=== PATIENT | male | born 1945 | race Caucasian/White ===

== ENCOUNTER 2020-04-22 12:13 | Inpatient (IN) | payer MEDICARE, SELFPAY ==
[2020-04-22 12:33] VITALS: BP 163/56; PULSE 68; RESP 20; TEMP 36.6; O2SAT 99; BMI 32.3
--- NOTE | 2020-04-22 12:44 | ED_ITS ---
HPI - General Adult General Chief complaint: General Medical Stated complaint: abnormal labs Time Seen by Provider: 04/22/20 12:34 Source: patient Mode of arrival: ambulatory Limitations: no limitations History of Present Illness HPI narrative: This is a pleasant 75-year-old male with past medical history as noted below: Type 2 diabetes Peripheral vascular disease Chronic kidney disease stage 3 Atrial fibrillation, chronically anticoagulated Plavix Status post CABG 2006 Amputation left great toe CVA, post CABG 2006 Hyperlipidemia Hepatitis-C Hypertension History mostly gathered from on-call -___ at [facility] He is sent in as an expected with a complaint of worsening H&H and worsening renal function. Apparently patient reports that he was evaluated at the office yesterday for 1 week of generalized weakness, upper respiratory symptoms, chills and some nausea with diarrhea. He was subsequently called today and was told that his renal function was worsening and his H&H was low to go to emergency room. Patient again reports that he has had these symptoms ongoing for the past 1 week he is s tarting to feel somewhat better still has some URI symptoms with slight dry cough. He denies any fever or chills. He was tested for COVID-19 at the facility however no results on that yet. Apparently his PCP office called in and history will be faxed to us. Onset (ago): day(s) Radiation: non-radiation Relieving factors: none Associated symptoms: denies other symptoms Treatments prior to arrival: none Related Data Home Medications Medication Instructions Recorded Confirmed amlodipine 1 tab PO DAILY 04/22/20 04/22/20 atorvastatin 1 tab PO DAILY 04/22/20 04/22/20 clopidogrel 1 tab PO DAILY 04/22/20 04/22/20 gemfibrozil 1 tab PO BID 04/22/20 04/22/20 hydralazine 100 tab PO BID 04/22/20 04/22/20 insulin glargine [Lantus U-100 80 unit SUBCUT BID 04/22/20 04/22/20 Insulin] insulin lispro 30 unit SUBCUT TIDWM 04/22/20 04/22/20 metoprolol succinate 100 tab PO DAILY 04/22/20 04/22/20 olmesartan 1 tab PO DAILY 04/22/20 04/22/20 spironolacton-hydrochlorothiaz 1 tab PO DAILY 04/22/20 04/22/20 Allergies Allergy/AdvReac Type Severity Reaction Status Date / Time No Known Allergies Allergy Verified 04/22/20 12:37 [No Known Allergies*] Review of Systems Review of Systems: Constitutional: No Weight loss, No Fever, + Chills, + Night Sweats, No Fatigue, No Malaise ENT/Mouth: No Hearing loss, No Ear Pain, No Nasal Congestion, No Sinus Pain, No Hoarseness, No sore throat, No Rhinorrhea, No Swallowing Difficulty Eyes: No Eye Pain, No Swelling, No Redness, No Foreign Body, No Discharge, No Vision Changes Cardiovascular: No Chest Pain, No SOB, No Dyspnea on Exertion, No Orthopnea, No Edema, No Palpitations Respiratory: No Cough, No Sputum, No Wheezing, No Smoke Exposure, No Dyspnea Gastrointestinal: No Nausea, No Vomiting, + Diarrhea, No Constipation, No abdominal Pain, No Hematochezia, No Melena Genitourinary: no irregular bleeding, No Dysuria, No Urinary Frequency, No Hematuria, No Urinary Incontinence, No Urgency, No Flank Pain, No Urinary Flow Changes, No Hesitancy Musculoskeletal: No joint pain, No Myalgias, No Joint Swelling Skin: No Skin Lesions, No rash Neuro: No Weakness, No Numbness, No Paresthesias, No Loss of Consciousness, No Dizziness, No Headache Psych: No Social Issues Heme/Lymph: No Bruising, No Bleeding,No Lymphadenopathy Endocrine: No Polyuria, No Polydipsia, No Temperature Intolerance Yes all other systems are reviewed and are negative FOR[facility]LY [facility] Past Medical History Medical History (Updated 04/22/20 @ 19:36 by Ervin Woods NP) Acute kidney injury Amputation of left great toe Atrial fibrillation Chronic anticoagulation Chronic kidney disease, stage 3 CVA (cerebral vascular accident) Diabetes Hepatitis C High cholesterol HTN (hypertension) Hyperlipidemia Peripheral vascular disease Surgical History H/O heart bypass surgery S/P CABG (coronary artery bypass graft) Family History Family History (Updated 04/22/20 @ 17:36 by Andi Dietrich MD) Other CAD (coronary artery disease) Social History Social History (Updated 04/22/20 @ 17:37 by Andi Dietrich MD) Smoking Status: Never smoker Substance Use Type: Marijuana Advance Directives: No Advance Directives Information Provided: No Physical Exam Vital Signs: Vital Signs: Last Vital Signs Temp 98.3 F 04/22/20 14:00 Pulse 79 04/22/20 17:51 Resp 16 04/22/20 17:51 BP 161/63 H 04/22/20 17:51 Pulse Ox 99 04/22/20 17:51 Body Mass Index 32.3 Reviewed Const: Other: Appears older than stated age General: cooperative; No intoxicated appearing Nutritional Appearance: average body habitus and obese Orientation/consciousness: patient oriented x3 HENMT: Head: Yes normal to inspection Ears: hearing grossly normal bilaterally Eyes: General: appearance normal, both eyes and all related structures Visual Murrell: normal visual murrell by confrontation Neck: Neck: Yes normal visual inspection and No tender Thyroid: Thyroid normal Chest: Chest palpation & inspection: normal inspection of the chest Resp: Effort & Inspection: normal respiratory effort Auscultation: clear to auscultation bilaterally Cardio: Jugular venous distension: no JVD Rate: regular rate Rhythm: regular rhythm Heart sounds: S1 normal heart sound present and S2 normal heart sound present GI: Other: Occult stool negative on digital exam developed the bedside, sent additional for lab Inspection: Yes normal to inspection Percussion: Yes normal to percussion Auscultation: normal bowel sounds : General: Yes no CVA tenderness Back/Spine/Pelvis: Back: no CVA tenderness Skin: General skin exam: no rashes or lesions noted Neuro: General: patient oriented x3 Extrem: General: Yes normal to inspection Course Course Course Narrative: In review 75-year-old male with extensive history as noted above presenting with URI symptoms for the past 1 week or so as well as some diarrhea sent in from primary care doctor office at [facility] where he had lab work done yesterday found to have increasingly worsening renal function at baseline 1.2 history of kidney disease last time was in August where he was 0.8 and his creatinine. Additionally worsening H&H however no obvious bleeding. Brown stool this morning. Occult stool in the ED negative. Lab work shows acute kidney injury this is likely secondary to the URI symptoms/diarrhea causing dehydration. Given gradual fluids here. Case was discussed with hospitalist for admission.. He has not had any abdominal pain or nausea vomiting diarrhea here. Medical Decision Making Lab Data Result diagrams: 04/22/20 13:27 04/22/20 13:27 Labs: Lab Results 04/22/20 04/22/20 04/22/20 Range/Units 13:27 13:27 13:27 WBC (4.8-10.8) X10*3/uL RBC (4.60-5.80) X10*6/uL Hgb (14.0-18.0) g/dl Hct (42-52) % MCV (80-98) fL MCH (27.0-33.0) pg MCHC (31.0-36.0) g/dl RDW (11.0-16.0) % Plt Count (160-400) X10*3/uL MPV (9.4-12.4) fL Immature Gran % (Auto) (0.0-0.4) % Neut % (Auto) (45-73) % Lymph % (Auto) (20-40) % [place] % (Auto) (2-11) % Eos % (Auto) (0-4) % Baso % (Auto) (0-2) % Lymph # (Auto) (1.2-4.9) X10*3/uL [place] # (Auto) (0.1-1.2) X10*3/uL Eos # (Auto) (0.0-0.4) X10*3/uL Baso # (Auto) (0.0-0.2) X10*3/uL Abs Immat Gran (auto) (0.00-0.03) X10*3/uL Absolute Neuts (auto) (2.0-8.3) X10*3/uL Absolute Nucleated RBC (0.0-0.012) X10*3/uL Nucleated RBC % (auto) (0.0-0.2) /100WBC PT (10.8-13.0) SEC INR (0.9-1.1) APTT (24.1-38.0) SEC Sodium (135-145) mmol/L Potassium (3.3-5.1) mmol/l Chloride (96-108) mmol/L Carbon Dioxide (22-29) mmol/L Anion Gap (12-20) BUN (9-16) mg/dL Creatinine (0.5-1.4) mg/dL Estim Creat Clear Calc Estimated GFR Random Glucose (60-115) mg/dL Lactic Acid (0.5-2.0) mmol/L Calcium (8.4-10.2) mg/dL Ferritin 17 L (20-250) ng/mL Total Bilirubin (0.0-1.0) mg/dL AST (5-37) U/L ALT (0-40) U/L Alkaline Phosphatase (39-117) U/L Lactate Dehydrogenase 205 (118-273) U/L Troponin I High Sens (<3.5-35.0) ng/L C-Reactive Protein 1.02 H (< or = 0.50) mg/dL Total Protein (6.5-8.0) g/dL Albumin (3.5-5.0) g/dL Procalcitonin 0.11 ng/mL Urine Color Urine Appearance Urine pH (5.0-8.0) Ur Specific [place] (1.005-1.025) Urine Protein (NEG-TRACE) MG/DL Urine Glucose (UA) (NEG) MG/DL Urine Ketones (NEG) MG/DL Urine Blood (NEG) Urine Nitrite (NEG) Ur Leukocyte Esterase (NEG) Stool Occult Blood (NEG) Coronavirus (PCR) NEGATIVE (Negative) Influenza Type A (PCR) NEGATIVE (Negative) Influenza Type B (PCR) NEGATIVE (Negative) RSV RNA Qual (PCR) NEGATIVE (Negative) 04/22/20 04/22/20 04/22/20 Range/Units 13:27 13:27 13:27 WBC 8.9 (4.8-10.8) X10*3/uL RBC 3.65 L (4.60-5.80) X10*6/uL Hgb 8.3 L (14.0-18.0) g/dl Hct 28.5 L (42-52) % MCV 78.1 L (80-98) fL MCH 22.7 L (27.0-33.0) pg MCHC 29.1 L (31.0-36.0) g/dl RDW 17.0 H (11.0-16.0) % Plt Count 341 (160-400) X10*3/uL MPV 10.0 (9.4-12.4) fL Immature Gran % (Auto) 0.4 (0.0-0.4) % Neut % (Auto) 67.0 (45-73) % Lymph % (Auto) 16.8 L (20-40) % [place] % (Auto) 13.3 H (2-11) % Eos % (Auto) 1.9 (0-4) % Baso % (Auto) 0.6 (0-2) % Lymph # (Auto) 1.5 (1.2-4.9) X10*3/uL [place] # (Auto) 1.2 (0.1-1.2) X10*3/uL Eos # (Auto) 0.2 (0.0-0.4) X10*3/uL Baso # (Auto) 0.1 (0.0-0.2) X10*3/uL Abs Immat Gran (auto) 0.04 H (0.00-0.03) X10*3/uL Absolute Neuts (auto) 6.0 (2.0-8.3) X10*3/uL Absolute Nucleated RBC 0.000 (0.0-0.012) X10*3/uL Nucleated RBC % (auto) 0.0 (0.0-0.2) /100WBC PT 12.9 (10.8-13.0) SEC INR 1.1 (0.9-1.1) APTT 38.5 H (24.1-38.0) SEC Sodium 136 (135-145) mmol/L Potassium 5.2 H (3.3-5.1) mmol/l Chloride 106 (96-108) mmol/L Carbon Dioxide 17 L (22-29) mmol/L Anion Gap 18 (12-20) BUN 48 H (9-16) mg/dL Creatinine 1.84 H (0.5-1.4) mg/dL Estim Creat Clear Calc 41.5 Estimated GFR 36 Random Glucose 90 (60-115) mg/dL Lactic Acid (0.5-2.0) mmol/L Calcium 9.3 (8.4-10.2) mg/dL Ferritin (20-250) ng/mL Total Bilirubin 0.3 (0.0-1.0) mg/dL AST 41 H (5-37) U/L ALT 28 (0-40) U/L Alkaline Phosphatase 164 H (39-117) U/L Lactate Dehydrogenase (118-273) U/L Troponin I High Sens (<3.5-35.0) ng/L C-Reactive Protein (< or = 0.50) mg/dL Total Protein 7.7 (6.5-8.0) g/dL Albumin 4.6 (3.5-5.0) g/dL Procalcitonin ng/mL Urine Color Urine Appearance Urine pH (5.0-8.0) Ur Specific [place] (1.005-1.025) Urine Protein (NEG-TRACE) MG/DL Urine Glucose (UA) (NEG) MG/DL Urine Ketones (NEG) MG/DL Urine Blood (NEG) Urine Nitrite (NEG) Ur Leukocyte Esterase (NEG) Stool Occult Blood (NEG) Coronavirus (PCR) (Negative) Influenza Type A (PCR) (Negative) Influenza Type B (PCR) (Negative) RSV RNA Qual (PCR) (Negative) 04/22/20 04/22/20 04/22/20 Range/Units 13:27 13:27 15:06 WBC (4.8-10.8) X10*3/uL RBC (4.60-5.80) X10*6/uL Hgb (14.0-18.0) g/dl Hct (42-52) % MCV (80-98) fL MCH (27.0-33.0) pg MCHC (31.0-36.0) g/dl RDW (11.0-16.0) % Plt Count (160-400) X10*3/uL MPV (9.4-12.4) fL Immature Gran % (Auto) (0.0-0.4) % Neut % (Auto) (45-73) % Lymph % (Auto) (20-40) % [place] % (Auto) (2-11) % Eos % (Auto) (0-4) % Baso % (Auto) (0-2) % Lymph # (Auto) (1.2-4.9) X10*3/uL [place] # (Auto) (0.1-1.2) X10*3/uL Eos # (Auto) (0.0-0.4) X10*3/uL Baso # (Auto) (0.0-0.2) X10*3/uL Abs Immat Gran (auto) (0.00-0.03) X10*3/uL Absolute Neuts (auto) (2.0-8.3) X10*3/uL Absolute Nucleated RBC (0.0-0.012) X10*3/uL Nucleated RBC % (auto) (0.0-0.2) /100WBC PT (10.8-13.0) SEC INR (0.9-1.1) APTT (24.1-38.0) SEC Sodium (135-145) mmol/L Potassium (3.3-5.1) mmol/l Chloride (96-108) mmol/L Carbon Dioxide (22-29) mmol/L Anion Gap (12-20) BUN (9-16) mg/dL Creatinine (0.5-1.4) mg/dL Estim Creat Clear Calc Estimated GFR Random Glucose (60-115) mg/dL Lactic Acid 1.2 (0.5-2.0) mmol/L Calcium (8.4-10.2) mg/dL Ferritin (20-250) ng/mL Total Bilirubin (0.0-1.0) mg/dL AST (5-37) U/L ALT (0-40) U/L Alkaline Phosphatase (39-117) U/L Lactate Dehydrogenase (118-273) U/L Troponin I High Sens 6.9 (<3.5-35.0) ng/L C-Reactive Protein (< or = 0.50) mg/dL Total Protein (6.5-8.0) g/dL Albumin (3.5-5.0) g/dL Procalcitonin ng/mL Urine Color Urine Appearance Urine pH (5.0-8.0) Ur Specific [place] (1.005-1.025) Urine Protein (NEG-TRACE) MG/DL Urine Glucose (UA) (NEG) MG/DL Urine Ketones (NEG) MG/DL Urine Blood (NEG) Urine Nitrite (NEG) Ur Leukocyte Esterase (NEG) Stool Occult Blood NEG (NEG) Coronavirus (PCR) (Negative) Influenza Type A (PCR) (Negative) Influenza Type B (PCR) (Negative) RSV RNA Qual (PCR) (Negative) 04/22/20 Range/Units 15:44 WBC (4.8-10.8) X10*3/uL RBC (4.60-5.80) X10*6/uL Hgb (14.0-18.0) g/dl Hct (42-52) % MCV (80-98) fL MCH (27.0-33.0) pg MCHC (31.0-36.0) g/dl RDW (11.0-16.0) % Plt Count (160-400) X10*3/uL MPV (9.4-12.4) fL Immature Gran % (Auto) (0.0-0.4) % Neut % (Auto) (45-73) % Lymph % (Auto) (20-40) % [place] % (Auto) (2-11) % Eos % (Auto) (0-4) % Baso % (Auto) (0-2) % Lymph # (Auto) (1.2-4.9) X10*3/uL [place] # (Auto) (0.1-1.2) X10*3/uL Eos # (Auto) (0.0-0.4) X10*3/uL Baso # (Auto) (0.0-0.2) X10*3/uL Abs Immat Gran (auto) (0.00-0.03) X10*3/uL Absolute Neuts (auto) (2.0-8.3) X10*3/uL Absolute Nucleated RBC (0.0-0.012) X10*3/uL Nucleated RBC % (auto) (0.0-0.2) /100WBC PT (10.8-13.0) SEC INR (0.9-1.1) APTT (24.1-38.0) SEC Sodium (135-145) mmol/L Potassium (3.3-5.1) mmol/l Chloride (96-108) mmol/L Carbon Dioxide (22-29) mmol/L Anion Gap (12-20) BUN (9-16) mg/dL Creatinine (0.5-1.4) mg/dL Estim Creat Clear Calc Estimated GFR Random Glucose (60-115) mg/dL Lactic Acid (0.5-2.0) mmol/L Calcium (8.4-10.2) mg/dL Ferritin (20-250) ng/mL Total Bilirubin (0.0-1.0) mg/dL AST (5-37) U/L ALT (0-40) U/L Alkaline Phosphatase (39-117) U/L Lactate Dehydrogenase (118-273) U/L Troponin I High Sens (<3.5-35.0) ng/L C-Reactive Protein (< or = 0.50) mg/dL Total Protein (6.5-8.0) g/dL Albumin (3.5-5.0) g/dL Procalcitonin ng/mL Urine Color YELLOW Urine Appearance CLEAR Urine pH 5.5 (5.0-8.0) Ur Specific [place] 1.010 (1.005-1.025) Urine Protein NEG (NEG-TRACE) MG/DL Urine Glucose (UA) NEG (NEG) MG/DL Urine Ketones NEG (NEG) MG/DL Urine Blood NEG (NEG) Urine Nitrite NEG (NEG) Ur Leukocyte Esterase NEG (NEG) Stool Occult Blood (NEG) Coronavirus (PCR) (Negative) Influenza Type A (PCR) (Negative) Influenza Type B (PCR) (Negative) RSV RNA Qual (PCR) (Negative) Imaging Data Chest x-ray: Radiologist's impression: [place] [id number] XRay Report Signed Patient: John FaulknerMR#: [id number] : 5Acct:[id number] Age/Sex: 75 / MADM Date: 04/22/20 Loc: .ED Attending Dr: Ordering Physician: Ervin Woods NP Date of Service: 04/22/20 Procedure(s): XR chest 1V Accession Number(s): [id number] cc: Ervin Woods ADMISSION NURSE COORDINATOR~ EXAMINATION: XR CHEST CLINICAL INFORMATION: Weakness COMPARISON: None TECHNIQUE: Portable upright AP view of the chest was obtained. FINDINGS: The lungs are clear and there is no airspace consolidation, vascular congestion, or effusion. The heart is normal in size. The hilar and sternal contours are normal. There is been prior median sternotomy with mediastinal clips and sternotomy wires. No acute bony abnormality. XR/XR chest 1V IMPRESSION: Unremarkable examination. Dictated By:JOSE FISHER MD Signed By:<Electronically signed by JOSE FISHER MD in OV>04/22/20 1306 DD/ 1300 TD/TT: Academic Support Specialist: MP ECG Data Interpretation: Normal sinus rhythm RBBB MT interval within normal limits Nonspecific T-wave abnormality in the anterior lead Compared to 09/16/2018 Discharge Plan Discharge Clinical Impression: Chronic kidney disease, stage 3, Acute kidney injury, Diarrhea, Acute viral syndrome Patient Disposition: Admitted As Inpatient Interventions: Admission Worksheet (ED) Last Done: 04/22/20 19:31 Discharge Date/Time: 04/22/20 19:32
--- NOTE | 2020-04-22 12:45 | ECG_ITS ---
Test Reason : SOB Blood Pressure : / mmHG Vent. Rate : 071 BPM Atrial Rate : 071 BPM P-R Int : 178 ms QRS Dur : 144 ms QT Int : 424 ms P-R-T Axes : 030 043 046 degrees QTc Int : 460 ms Normal sinus rhythm Right bundle branch block Abnormal ECG When compared with ECG of 16-SEP-2018 12:03, T wave inversion now evident in Anterior leads Referred By: Ervin Woods Electronically Signed By:LD BRYAN MD
--- NOTE | 2020-04-22 13:00 | XR_ITS ---
EXAMINATION: XR CHEST CLINICAL INFORMATION: Weakness COMPARISON: None TECHNIQUE: Portable upright AP view of the chest was obtained. FINDINGS: The lungs are clear and there is no airspace consolidation, vascular congestion, or effusion. The heart is normal in size. The hilar and sternal contours are normal. There is been prior median sternotomy with mediastinal clips and sternotomy wires. No acute bony abnormality. XR/XR chest 1V IMPRESSION: Unremarkable examination.
[2020-04-22 13:37] LABS: MANUAL DIFF FLAG NO
[2020-04-22 13:38] LABS: Basophils Absolute Auto 0.1 X10*3/uL (0.0-0.2); Basophils Percent Auto 0.6 % (0-2); Eosinophils Absolute Auto 0.2 X10*3/uL (0.0-0.4); Eosinophils Percent Auto 1.9 % (0-4); Hematocrit 28.5 % (42-52); Hemoglobin 8.3 g/dl (14.0-18.0); Imm Gran Abs Auto 0.04 X10*3/uL (0.00-0.03); Imm Gran Pct Auto 0.4 % (0.0-0.4); Lymphocytes Absolute Auto 1.5 X10*3/uL (1.2-4.9); Lymphocytes Percent Auto 16.8 % (20-40); Mean Corpuscular HGB Conc 29.1 g/dl (31.0-36.0); Mean Corpuscular Hemoglobin 22.7 pg (27.0-33.0); Mean Corpuscular Volume 78.1 fL (80-98); Monocytes Absolute Auto 1.2 X10*3/uL (0.1-1.2); Monocytes Percent Auto 13.3 % (2-11); Platelet Count 341 X10*3/uL (160-400); Red Blood Count 3.65 X10*6/uL (4.60-5.80); White Blood Count 8.9 X10*3/uL (4.8-10.8)
[2020-04-22] MEDS: 0.9 % Sodium Chloride 500 ML 999 ML IV (13:43)
[2020-04-22 13:44] LABS: INTERNATIONAL NORM RATIO 1.1 (0.9-1.1); Prothrombin Time 12.9 SEC (10.8-13.0)
[2020-04-22 13:47] LABS: Partial Thromboplastin Time 38.5 SEC (24.1-38.0)
[2020-04-22 13:58] LABS: Lactic Acid 1.2 mmol/L (0.5-2.0)
[2020-04-22 14:00] VITALS: BP 150/71; PULSE 72; RESP 16; TEMP 36.8; O2SAT 97
[2020-04-22 14:02] LABS: C Reactive Protein 1.02 mg/dL (< or = 0.50); Lactate Dehydrogenase 205 U/L (118-273)
[2020-04-22 14:06] LABS: Alanine Aminotransferase 28 U/L (0-40); Albumin Level 4.6 g/dL (3.5-5.0); Alkaline Phosphatase 164 U/L (39-117); Anion Gap 18 (12-20); Aspartate Amino Transferase 41 U/L (5-37); Bilirubin Total 0.3 mg/dL (0.0-1.0); Blood Urea Nitrogen 48 mg/dL (9-16); Calcium 9.3 mg/dL (8.4-10.2); Carbon Dioxide 17 mmol/L (22-29); Chloride 106 mmol/L (96-108); Creatinine Clr Calc Pharmacy 41.5; Estimated Glomerular Filt Rate 36; Glucose Random 90 mg/dL (60-115); Potassium 5.2 mmol/l (3.3-5.1); Sodium 136 mmol/L (135-145); Total Protein 7.7 g/dL (6.5-8.0); Troponin-I High Sensitivity 6.9 ng/L (<3.5-35.0)
[2020-04-22 14:21] LABS: Procalcitonin 0.11 ng/mL
[2020-04-22 14:25] LABS: Ferritin 17 ng/mL (20-250)
[2020-04-22 14:29] LABS: Influenza A PCR NEGATIVE (Negative); Influenza B PCR NEGATIVE (Negative); Resp Syncy Virus RNA Qual PCR NEGATIVE (Negative); SARS COV2 PCR INHOUSE NEGATIVE (Negative)
[2020-04-22 15:20] LABS: OBS Int Ctl Valid YES; OBS1 NEG (NEG)
[2020-04-22 15:58] LABS: Glucose Urine UA NEG (NEG); Leukocyte Esterase Urine NEG (NEG); Nitrite Urine NEG (NEG); PH 5.5 (5.0-8.0); Urine Blood NEG (NEG); Urine Ketones NEG (NEG); Urine Protein NEG (NEG-TRACE)
[2020-04-22 16:04] LABS: Appearance Urine CLEAR; Color Urine YELLOW
--- NOTE | 2020-04-22 16:59 | P.HPHOSP_ITS ---
History of Present Illness Date of Service: 04/22/20 Chief Complaint: diarrhea, flu-like symptoms 75-year-old male presented with diarrhea , feeling cold , fever flu like symptoms that started about 1 week ago, patient denies any cough, shortness of breath, patient was seen by PCP office, and blood work was done, patient was instructed to come back to emergency room today and was told that he has anemia and his kidney numbers are bad, in the ER patient found to have creatinine of 1.8 , patient's last known kidney numbers from August 2018 were 0.88, patient was tested for COVID and influenza was negative,chest x-ray shows no infiltrate, patient was reporting diarrhea Patient also found to have microcytic anemia with hemoglobin around 8, last hemoglobin August 2018 was around 9, patient denies any blood in stool, per patient he did not have any EGD or colonoscopy recently Review of Systems Constitutional: Constitutional: Denies body ache(s) and Reports weakness Cardiovascular: Cardiovascular: Denies chest pain and Denies dyspnea Respiratory: Respiratory: Denies cough and Denies dyspnea Gastrointestinal: Gastrointestinal: Reports diarrhea and Denies vomiting Musculoskeletal: Musculoskeletal: Reports no additional musculoskeletal c omplaints Neurologic: Reports system reviewed and no additional complaints, except as documented and Reports weakness [facility] Medical History (Updated 04/23/20 @ 11:43 by Andi Dietrich MD) Acute kidney injury Amputation of left great toe Chronic kidney disease, stage 3 CVA (cerebral vascular accident) Diabetes Hepatitis C High cholesterol HTN (hypertension) Hyperlipidemia Peripheral vascular disease Family History (Updated 04/22/20 @ 17:36 by Andi Dietrich MD) Other CAD (coronary artery disease) Surgical History H/O heart bypass surgery S/P CABG (coronary artery bypass graft) Social History (Updated 04/22/20 @ 17:37 by Andi Dietrich MD) Household Members: Spouse Housing: House Do you presently have visiting nurse or other home services: No Smoking Status: Former smoker Tobacco Type: Cigarette Use of substances other than those prescribed or required for medical reasons: Yes 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 If so, by whom?: No Do you feel safe in your current relationship?: Yes Is there a partner from a previous relationship who is making you feel unsafe now?: No Are you made to feel afraid or neglected: No Advance Directives: No Advance Directives Information Provided: No Do you have thoughts of harming others: None Do you have a plan to hurt others: No Plan Recently lost weight without trying: No Meds Allergies Allergy/AdvReac Type Severity Reaction Status Date / Time No Known Allergies Allergy Verified 04/22/20 12:37 [No Known Allergies*] Home Medications Medication Instructions Recorded Confirmed Type amlodipine 1 tab PO DAILY 04/22/20 04/22/20 History atorvastatin 1 tab PO DAILY 04/22/20 04/22/20 History clopidogrel 1 tab PO DAILY 04/22/20 04/22/20 History gemfibrozil 1 tab PO BID 04/22/20 04/22/20 History hydralazine 100 tab PO BID 04/22/20 04/22/20 History insulin glargine [Lantus U-100 80 unit SUBCUT BID 04/22/20 04/22/20 History Insulin] insulin lispro 30 unit SUBCUT TIDWM 04/22/20 04/22/20 History metoprolol succinate 100 mg PO DAILY 04/22/20 04/22/20 History olmesartan 1 tab PO DAILY 04/22/20 04/22/20 History spironolacton-hydrochlorothiaz 1 tab PO DAILY 04/22/20 04/22/20 History Physical Exam Vital Signs and Narrative: Vital Signs: Last Vital Signs Temp 97.8 F 04/22/20 12:33 Pulse 68 04/22/20 12:33 Resp 20 04/22/20 12:33 BP 163/56 H 04/22/20 12:33 Pulse Ox 99 04/22/20 12:33 Body Mass Index 32.3 Const: General: cooperative and no acute distress Orientati on/consciousness: patient oriented x3 Eyes: General: appearance normal, both eyes and all related structures Neck: Yes normal visual inspection Resp: Effort & Inspection: normal respiratory effort Cardio: Jugular venous distension: no JVD Rate: regular rate GI: Inspection: Yes normal to inspection Skin: General skin exam: no rashes or lesions noted Neuro: General: patient oriented x3 Results Labs CBC and Chem 7: 04/23/20 06:17 04/23/20 06:17 Labs: Laboratory Results - last 24 hr 04/22/20 04/22/20 04/22/20 13:27 13:27 13:27 MCV MCH MCHC RDW Plt Count MPV Immature Gran % (Auto) Neut % (Auto) Lymph % (Auto) [place] % (Auto) Eos % (Auto) Baso % (Auto) Lymph # (Auto) [place] # (Auto) Eos # (Auto) Baso # (Auto) Abs Immat Gran (auto) Absolute Neuts (auto) Absolute Nucleated RBC Nucleated RBC % (auto) PT INR APTT Anion Gap Estim Creat Clear Calc Estimated GFR Random Glucose Lactic Acid Calcium Ferritin 17 L Total Bilirubin AST ALT Alkaline Phosphatase Lactate Dehydrogenase 205 Troponin I High Sens C-Reactive Protein 1.02 H Total Protein Albumin Procalcitonin 0.11 Urine Color Urine Appearance Urine pH Ur Specific [place] Urine Protein Urine Glucose (UA) Urine Ketones Urine Blood Urine Nitrite Ur Leukocyte Esterase Stool Occult Blood Coronavirus (PCR) NEGATIVE Influenza Type A (PCR) NEGATIVE Influenza Type B (PCR) NEGATIVE RSV RNA Qual (PCR) NEGATIVE 04/22/20 04/22/20 04/22/20 13:27 13:27 13:27 MCV 78.1 L MCH 22.7 L MCHC 29.1 L RDW 17.0 H Plt Count 341 MPV 10.0 Immature Gran % (Auto) 0.4 Neut % (Auto) 67.0 Lymph % (Auto) 16.8 L [place] % (Auto) 13.3 H Eos % (Auto) 1.9 Baso % (Auto) 0.6 Lymph # (Auto) 1.5 [place] # (Auto) 1.2 Eos # (Auto) 0.2 Baso # (Auto) 0.1 Abs Immat Gran (auto) 0.04 H Absolute Neuts (auto) 6.0 Absolute Nucleated RBC 0.000 Nucleated RBC % (auto) 0.0 PT 12.9 INR 1.1 APTT 38.5 H Anion Gap 18 Estim Creat Clear Calc 41.5 Estimated GFR 36 Random Glucose 90 Lactic Acid Calcium 9.3 Ferritin Total Bilirubin 0.3 AST 41 H ALT 28 Alkaline Phosphatase 164 H Lactate Dehydrogenase Troponin I High Sens C-Reactive Protein Total Protein 7.7 Albumin 4.6 Procalcitonin Urine Color Urine Appearance Urine pH Ur Specific [place] Urine Protein Urine Glucose (UA) Urine Ketones Urine Blood Urine Nitrite Ur Leukocyte Esterase Stool Occult Blood Coronavirus (PCR) Influenza Type A (PCR) Influenza Type B (PCR) RSV RNA Qual (PCR) 04/22/20 04/22/20 04/22/20 13:27 13:27 15:06 MCV MCH MCHC RDW Plt Count MPV Immature Gran % (Auto) Neut % (Auto) Lymph % (Auto) [place] % (Auto) Eos % (Auto) Baso % (Auto) Lymph # (Auto) [place] # (Auto) Eos # (Auto) Baso # (Auto) Abs Immat Gran (auto) Absolute Neuts (auto) Absolute Nucleated RBC Nucleated RBC % (auto) PT INR APTT Anion Gap Estim Creat Clear Calc Estimated GFR Random Glucose Lactic Acid 1.2 Calcium Ferritin Total Bilirubin AST ALT Alkaline Phosphatase Lactate Dehydrogenase Troponin I High Sens 6.9 C-Reactive Protein Total Protein Albumin Procalcitonin Urine Color Urine Appearance Urine pH Ur Specific [place] Urine Protein Urine Glucose (UA) Urine Ketones Urine Blood Urine Nitrite Ur Leukocyte Esterase Stool Occult Blood NEG Coronavirus (PCR) Influenza Type A (PCR) Influenza Type B (PCR) RSV RNA Qual (PCR) 04/22/20 15:44 MCV MCH MCHC RDW Plt Count MPV Immature Gran % (Auto) Neut % (Auto) Lymph % (Auto) [place] % (Auto) Eos % (Auto) Baso % (Auto) Lymph # (Auto) [place] # (Auto) Eos # (Auto) Baso # (Auto) Abs Immat Gran (auto) Absolute Neuts (auto) Absolute Nucleated RBC Nucleated RBC % (auto) PT INR APTT Anion Gap Estim Creat Clear Calc Estimated GFR Random Glucose Lactic Acid Calcium Ferritin Total Bilirubin AST ALT Alkaline Phosphatase Lactate Dehydrogenase Troponin I High Sens C-Reactive Protein Total Protein Albumin Procalcitonin Urine Color YELLOW Urine Appearance CLEAR Urine pH 5.5 Ur Specific [place] 1.010 Urine Protein NEG Urine Glucose (UA) NEG Urine Ketones NEG Urine Blood NEG Urine Nitrite NEG Ur Leukocyte Esterase NEG Stool Occult Blood Coronavirus (PCR) Influenza Type A (PCR) Influenza Type B (PCR) RSV RNA Qual (PCR) Imaging Radiologist's Impressions: Impressions Chest X-Ray 04/22/20 13:00 IMPRESSION: Unremarkable examination. Assessment and Plan (1) Acute kidney injury: Status: Acute (2) Hepatitis C: Status: Acute (3) Hyperlipidemia: Status: Acute (4) CVA (cerebral vascular accident): Status: Acute (5) Chronic kidney disease, stage 3: Status: Acute 75-year-old male with diarrhea and flu-like symptoms for 1 week and was reported improving , seen in the PCP office and blood work was done, patient was instructed to come to emergency room for abdominal labs Acute kidney injury likely secondary to dehydration creatinine around 1.8 will give IV fluid hold losartan and Aldactone and hydrochlorothiazide monitor kidney function avoid nephrotoxic will get Nephrology consult Microcytic anemia denies any blood in stool will check iron studies Will check stool for occult blood monitor H&H Gi consult hypertension continue amlodipine and Lopressor CAd s/p CABG continue statin and lopressor hold aldactone and olmesartan for DOMENICO history of carotid stenosis s/p carotid endartrectomy in past hold plavix given anemia for posisble procedure diabetes mellitus continue Lantus and sliding scale insulin monitor blood glucose DVT prophylaxis Lovenox
[2020-04-22 17:51] VITALS: BP 161/63; PULSE 79; RESP 16; O2SAT 99
[2020-04-22 20:01] LABS: RBC Urine 0 /HPF (0); WBC Urine 0 /HPF (0-4)
[2020-04-22 20:19] LABS: Iron 19 mcg/dL (45-160); Percent Iron Saturation 4 % (15-50); Total Iron Binding Capacity 498 mcg/dL (228-428); Unsaturated Iron Binding 479 ug/dL
[2020-04-22] MEDS: Insulin Lispro 100 UNIT/ML 3 ML VIAL 30 UNIT SUBCUT (20:20)
[2020-04-22] MEDS: Atorvastatin Calcium 40 MG TABLET PO (20:20)
[2020-04-22] MEDS: 0.9 % Sodium Chloride 1,000 ML 100 ML IVCONT (20:23)
[2020-04-22 20:34] LABS: Glucose, Whole Blood 280 mg/dL (60-115)
[2020-04-22 20:39] LABS: Ferritin 16 ng/mL (20-250)
[2020-04-22 20:55] VITALS: BP 143/60; PULSE 72
[2020-04-22] MEDS: Enoxaparin Sodium 40 MG/0.4 ML SYRINGE SUBCUT (20:55)
[2020-04-22] MEDS: hydrALAZINE HCl 50 MG TABLET 100 MG PO (20:55)
[2020-04-22] MEDS: Insulin Glargine,Hum.rec.anlog 100 UNIT/ML 10 ML VIAL 80 UNIT SUBCUT (20:56)
[2020-04-22] MEDS: gemfibroziL 600 MG TABLET PO (20:56)
[2020-04-22 23:33] VITALS: BP 138/61; PULSE 66; RESP 20; TEMP 36.8; O2SAT 98
[2020-04-23] VITALS (10 sets, daily range): BP systolic 122–166; BP diastolic 55–73; PULSE 68–81; RESP 16–20; TEMP 36.4–37.2; O2SAT 98–99
--- NOTE | 2020-04-23 | CT_ITS ---
EXAMINATION: CT ABDOMEN AND PELVIS WITHOUT CONTRAST CLINICAL INFORMATION: Rule out ischemic colitis versus malignancy. COMPARISON: None. TECHNIQUE: Multidetector volumetric imaging was performed from the superior aspect of the liver through the pubic symphysis after the administration of oral contrast only. Sagittal and coronal reformatted images were obtained on the technologist workstation. This CT examination was performed using dose optimization techniques as appropriate, variously including the following: *Automated exposure control *Adjustment of mA and/or kV according to patient size (this includes techniques or standardized protocols for targeted exams where dose is matched to indication/reason for exam; i.e. extremities or head) *Use of iterative reconstruction technique DLP: 683.79 mGy-cm. FINDINGS: LUNG BASES: The visualized lung bases are unremarkable. LIVER, GALLBLADDER, AND BILIARY TREE: The liver is normal in size, shape, and attenuation. No focal hepatic lesion on noncontrast imaging. No biliary ductal dilatation is present. There are several peripherally rim calcified small gallstones within the gallbladder. The gallbladder is otherwise unremarkable with no evidence of gallbladder wall thickening, or obvious pericholecystic inflammatory changes. PANCREAS: Unremarkable on noncontrast imaging. SPLEEN, ADRENAL GLANDS: Unremarkable on noncontrast imaging. Incidental approximately 1.3 cm accessory splenule seen in the splenic hilar region. KIDNEYS AND URETERS: The kidneys are normal in size, shape, and attenuation. No hydronephrosis, hydroureter, or calculi seen. There is a thin-walled fluid attenuation exophytic mid right renal cyst measuring 1.8 x 1.0 cm. Mild nonspecific bilateral perinephric stranding. BLADDER: Unremarkable. PELVIC VISCERA: Unremarkable. GASTROINTESTINAL TRACT: The small and large bowel are unremarkable, except for a few scattered sigmoid colonic diverticula. No evidence of acute diverticulitis.. The appendix is unremarkable. ABDOMINAL WALL: No significant hernia is appreciated. LYMPH NODES, VASCULAR: Borderline enlarged lymph nodes are seen in the right upper quadrant periceliac axis region, measuring up to 1.3 cm in short axis (series 3, image 24). Other subcentimeter sized lymph nodes are noted. No retroperitoneal, pelvic or inguinal adenopathy. OSSEOUS STRUCTURES: Diffuse osteopenia. No acute fracture. Moderate vertebral spondylosis in lower thoracic spine. Mild degenerative disc disease at L4-5 with disc space narrowing, vacuum disc phenomenon, and moderate vertebral spurring. Small posterior disc osteophyte complex seen projecting into the thecal sac at this level. No suspicious bone findings. CT/CT abdomen pelvis w con IMPRESSION: 1. The large bowel loops are unremarkable except for mild sigmoid colonic diverticulosis. No evidence of ischemic colitis or obvious colonic malignancy on nonprepped exam. Further more sensitive evaluation of the colon with dedicated barium enema or colonoscopy may be warranted depending on level of clinical concern. 2. Nonspecific mildly enlarged right upper quadrant lymph nodes are seen measuring up to 1.3 cm in the periceliac axis region. 3. Cholelithiasis.
[2020-04-23] MEDS: 0.9 % Sodium Chloride 1,000 ML 100 ML IVCONT (04:58)
[2020-04-23 06:31] LABS: MANUAL DIFF FLAG NO
[2020-04-23 06:54] LABS: Basophils Absolute Auto 0.1 X10*3/uL (0.0-0.2); Basophils Percent Auto 0.7 % (0-2); Eosinophils Absolute Auto 0.2 X10*3/uL (0.0-0.4); Eosinophils Percent Auto 2.4 % (0-4); Hematocrit 26.5 % (42-52); Hemoglobin 7.7 g/dl (14.0-18.0); Imm Gran Abs Auto 0.03 X10*3/uL (0.00-0.03); Imm Gran Pct Auto 0.4 % (0.0-0.4); Lymphocytes Absolute Auto 1.8 X10*3/uL (1.2-4.9); Lymphocytes Percent Auto 22.4 % (20-40); Mean Corpuscular HGB Conc 29.1 g/dl (31.0-36.0); Mean Corpuscular Hemoglobin 22.4 pg (27.0-33.0); Mean Corpuscular Volume 77.3 fL (80-98); Monocytes Absolute Auto 0.8 X10*3/uL (0.1-1.2); Monocytes Percent Auto 9.1 % (2-11); Neutrophils Absolute Auto 5.3 X10*3/uL (2.0-8.3); Platelet Count 319 X10*3/uL (160-400); Red Blood Count 3.43 X10*6/uL (4.60-5.80); Red Cell Distribution Width 16.9 % (11.0-16.0); White Blood Count 8.2 X10*3/uL (4.8-10.8)
[2020-04-23 07:19] LABS: Anion Gap 16 (12-20); Blood Urea Nitrogen 40 mg/dL (9-16); Calcium 8.8 mg/dL (8.4-10.2); Carbon Dioxide 18 mmol/L (22-29); Chloride 110 mmol/L (96-108); Creatinine Clr Calc Pharmacy 51.2; Estimated Glomerular Filt Rate 46; Glucose Random 132 mg/dL (60-115); Potassium 4.5 mmol/l (3.3-5.1); Sodium 139 mmol/L (135-145)
[2020-04-23 07:59] LABS: Glucose, Whole Blood 131 mg/dL (60-115)
[2020-04-23] MEDS: hydrALAZINE HCl 50 MG TABLET 100 MG PO ×2 (09:05→21:09)
[2020-04-23] MEDS: gemfibroziL 600 MG TABLET PO ×2 (09:05→21:09)
[2020-04-23] MEDS: Metoprolol Succinate ER 100 MG TAB.ER.24H PO (09:05)
[2020-04-23] MEDS: Clopidogrel Bisulfate 75 MG TABLET PO (09:07)
[2020-04-23] MEDS: amLODIPine Besylate 10 MG TABLET PO (09:07)
[2020-04-23 09:17] LABS: OBS1 NEG (NEG)
[2020-04-23 09:18] LABS: OBS Int Ctl Valid YES
--- NOTE | 2020-04-23 10:07 | P.CNGI_ITS ---
History of Present Illness Data of Consult Service Date: 04/23/20 Requesting physician: Andi Dietrich Primary Care Provider: Elías Arce MD HPI Reason for consult: anemia 75-year-old male w hx of CVA, CKD, PVD, carotid art stenosis s/p endarterectomy, DM, HTn, and obsity who I am asked to see for assessment for anemia, He initially presented with c/o non bloody diarrhea , feeling cold , fever flu like symptoms that started about 1 week ago associated with poor appetite. The diarrhea was few times a day, denies sick contacts, no recent abx, or badly cooked foods He denies melena, no nausea, vomiting, or rectal bleeding. Denies reflux, dysphagia, nose bleeds, hematuria, no weight loss. He is on plavix due to vascular disease and sees Dr Juares for his vascular disease not taking nsaids PCP did labs and he was told to go to ED due to worsening renal function and anemia. The patient was tested for COVID and influenza and was negative for both, chest x-ray shows no infiltrate, hemoglobin around 8, last hemoglobin August 2018 was around 9. iron studies consistent with iron def anemia ;ast colonoscopy >20 yrs ago and nml per his report Review of Systems Review of Systems: Constitutional: No Weight loss, No Fever, + Chills, + Night Sweats, No Fatigue, No Malaise ENT/Mouth: No Hearing loss, No Ear Pain, No Nasal Congestion, No Sinus Pain, No Hoarseness, No sore throat, No Rhinorrhea, No Swallowing Difficulty Eyes: No Eye Pain, No Swelling, No Redness, No Foreign Body, No Discharge, No Vision Changes Cardiovascular: No Chest Pain, No SOB, No Dyspnea on Exertion, No Orthopnea, No Edema, No Palpitations Respiratory: No Cough, No Sputum, No Wheezing, No Smoke Exposure, No Dyspnea Gastrointestinal: No Nausea, No Vomiting, + Diarrhea, No Constipation, No abdominal Pain, No Hematochezia, No Melena Genitourinary: no irregular bleeding, No Dysuria, No Urinary Frequency, No Hematuria, No Urinary Incontinence, No Urgency, No Flank Pain, No Urinary Flow Changes, No Hesitancy Musculoskeletal: No joint pain, No Myalgias, No Joint Swelling Skin: No Skin Lesions, No rash Neuro: No Weakness, No Numbness, No Paresthesias, No Loss of Consciousness, No Dizziness, No Headache Psych: No Social Issues Heme/Lymph: No Bruising, No Bleeding,No Lymphadenopathy Endocrine: No Polyuria, No Polydipsia, No Temperature Intolerance Yes all ot her systems are reviewed and are negative Constitutional: Constitutional: Reports weakness Neurologic: Reports system reviewed and no additional complaints, except as d ocumented and Reports weakness PMFSH Past Medical History Medical History Acute kidney injury Amputation of left great toe Chronic kidney disease, stage 3 CVA (cerebral vascular accident) Diabetes Hepatitis C High cholesterol HTN (hypertension) Hyperlipidemia Peripheral vascular disease Family History Family History Other CAD (coronary artery disease) Surgical History Surgical History H/O heart bypass surgery S/P CABG (coronary artery bypass graft) Social History Social History Household Members: Spouse Housing: House Do you presently have visiting nurse or other home services: No Smoking Status: Former smoker Tobacco Type: Cigarette Use of substances other than those prescribed or required for medical reasons: Yes 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 If so, by whom?: No Do you feel safe in your current relationship?: Yes Is there a partner from a previous relationship who is making you feel unsafe now?: No Are you made to feel afraid or neglected: No Advance Directives: No Advance Directives Information Provided: No Do you have thoughts of harming others: None Do you have a plan to hurt others: No Plan Recently lost weight without trying: No service: No Current occupational status: retired [employer] Allergies Allergy/AdvReac Type Severity Reaction Status Date / Time No Known Allergies Allergy Verified 04/22/20 12:37 [No Known Allergies*] Home Medications Medication Instructions Recorded Confirmed Type amlodipine 1 tab PO DAILY 04/22/20 04/22/20 History atorvastatin 1 tab PO DAILY 04/22/20 04/22/20 History clopidogrel 1 tab PO DAILY 04/22/20 04/22/20 History gemfibrozil 1 tab PO BID 04/22/20 04/22/20 History hydralazine 100 tab PO BID 04/22/20 04/22/20 History insulin glargine [Lantus U-100 80 unit SUBCUT BID 04/22/20 04/22/20 History Insulin] insulin lispro 30 unit SUBCUT TIDWM 04/22/20 04/22/20 History metoprolol succinate 100 mg PO DAILY 04/22/20 04/22/20 History olmesartan 1 tab PO DAILY 04/22/20 04/22/20 History spironolacton-hydrochlorothiaz 1 tab PO DAILY 04/22/20 04/22/20 History Physical Exam Vital Signs: Vital Signs: Last Vital Signs Temp 98.3 F 04/23/20 07:38 Pulse 81 04/23/20 09:07 Resp 17 04/23/20 07:38 BP 166/73 H 04/23/20 09:07 Pulse Ox 98 04/23/20 07:38 Body Mass Index 32.3 Const: General: cooperative and no acute distress; No intoxicated appearing Nutritional Appearance: average body habitus and obese Orientation/consciousness: patient oriented x3 HENMT: Head: Yes normal to inspection Ears: hearing grossly normal bilaterally Eyes: General: appearance normal, both eyes and all related structures Visual Murrell: normal visual murrell by confrontation Neck: Neck: Yes normal visual inspection and No tender Thyroid: Thyroid normal Chest: Chest palpation & inspection: normal inspection of the chest Resp: Effort & Inspection: normal respiratory effort Auscultation: clear to auscultation bilaterally Cardio: Jugular venous distension: no JVD Rate: regular rate Rhythm: regular rhythm Heart sounds: S1 normal heart sound present and S2 normal heart sound present GI: Inspection: Yes normal to inspection Percussion: Yes normal to percussion Auscultation: normal bowel sounds : General: Yes no CVA tenderness Back/Spine/Pelvis: Back: no CVA tenderness Skin: General skin exam: no rashes or lesions noted Neuro: General: patient oriented x3 Extrem: General: Yes normal to inspection Results Labs CBC & Chem 7: 04/23/20 06:17 04/23/20 06:17 Labs: Short CBC 04/22/20 04/23/20 Range/Units 13:27 06:17 WBC 8.9 8.2 (4.8-10.8) X10*3/uL Hgb 8.3 L 7.7 L (14.0-18.0) g/dl Hct 28.5 L 26.5 L (42-52) % Plt Count 341 319 (160-400) X10*3/uL BMP 04/22/20 04/23/20 13:27 06:17 Sodium 136 139 Potassium 5.2 H 4.5 Chloride 106 110 H Carbon Dioxide 17 L 18 L BUN 48 H 40 H Creatinine 1.84 H 1.49 H Calcium 9.3 8.8 Liver Function 04/22/20 Range/Units 13:27 Total Bilirubin 0.3 (0.0-1.0) mg/dL AST 41 H (5-37) U/L ALT 28 (0-40) U/L Alkaline Phosphatase 164 H (39-117) U/L Albumin 4.6 (3.5-5.0) g/dL Urine 04/22/20 Range/Units 15:44 Urine Color YELLOW Urine Appearance CLEAR Urine pH 5.5 (5.0-8.0) Ur Specific [place] 1.010 (1.005-1.025) Urine Protein NEG (NEG-TRACE) MG/DL Urine Glucose (UA) NEG (NEG) MG/DL ECG Attestation: I personally reviewed and interpreted this ECG as follows: ECG interpretation date: 04/23/20 Interpretation: sR, RBBB, normal axis, nml CT, TWI anterior leads Assessment and Plan (1) Iron deficiency anemia due to chronic blood loss: Status: Acute 1/SAMSON need to r/o GI blood loss, wide differentials incl neoplasia, isc hemic colitis, PUD, plavix related mucosal injury PLAN: 1/ CT with PO contrast 2/ transfuse and resus with hgb aim for 8-9 g/dl 3/ plan for EGD and colonoscopy Sunday, clears day before and prep 4/ can allow clears today if HGB stable then regular diet tomorrow only 5/ hold plavix till endoscpies 6/ low dose PPI meantime
[2020-04-23] MEDS: Insulin Glargine,Hum.rec.anlog 100 UNIT/ML 10 ML VIAL 80 UNIT SUBCUT ×2 (10:44→21:09)
--- NOTE | 2020-04-23 11:46 | HO.PM.IMPN ---
Subjective Subjective Date of Service: 04/23/20 Constitutional Constitutional: Denies body ache(s) and Reports weakness Cardiovascular Cardiovascular: Denies chest pain and Denies dyspnea Respiratory Respiratory: Denies cough and Denies dyspnea Gastrointestinal Gastrointestinal: Reports diarrhea and Denies vomiting Musculoskeletal Musculoskeletal: Reports no additional musculoskeletal complaints Neurologic Neurologic: Reports system reviewed and no additional complaints, except as documented and Reports weakness Physical Exam Vital Signs: Vital Signs: Last Vital Signs Temp 97.5 F 04/23/20 11:40 Pulse 77 04/23/20 11:40 Resp 16 04/23/20 11:40 BP 158/65 H 04/23/20 11:40 Pulse Ox 98 04/23/20 11:40 Body Mass Index 32.3 Const: General: cooperative and no acute distress Orientation/consciousness: patient oriented x3 Eyes: General: appearance normal, both eyes and all related structures Neck: Neck: Yes normal visual inspection Resp: Effort & Inspection: normal respiratory effort Cardio: Jugular venous distension: no JVD Rate: regular rate GI: Inspection: Yes normal to inspection Skin: General skin exam: no rashes or lesions noted Neuro: General: patient oriented x3 Objective Data Current Medications Generic Name Dose Route Start Last Admin Trade Name Freq PRN Reason Stop Dose Admin Amlodipine Besylate 10 mg 04/23/20 09:00 04/23/20 09:07 Amlodipine Besylate 10 Mg Tablet PO 10 mg DAILY KEIKO Administration Protocol Atorvastatin Calcium 40 mg 04/22/20 21:00 04/22/20 20:20 Atorvastatin Calcium 40 Mg Tablet PO 40 mg BEDTIME KEIKO Administration Gemfibrozil 600 mg 04/22/20 21:00 04/23/20 09:05 Gemfibrozil 600 Mg Tablet PO 600 mg BID KEIKO Administration Hydralazine HCl 100 mg 04/22/20 21:00 04/23/20 09:05 Hydralazine Hcl 50 Mg Tablet PO 100 mg BID KEIKO Administration Sodium Chloride 1,000 mls @ 75 mls/hr 04/22/20 19:22 04/23/20 04:58 Ns IVCONT 100 mls/hr .[id number] KEIKO Administration Insulin Glargine 80 unit 04/22/20 21:00 04/23/20 10:44 Insulin Glargine,Hum.Rec.Anlog 100 Unit/Ml 10 Ml Vial SUBCUT 80 unit BID KEIKO Administration Insulin Human Lispro 30 unit 04/22/20 19:22 04/23/20 09:11 Insulin Lispro 100 Unit/Ml 3 Ml Vial SUBCUT Not Given TIDWM [facility] Metoprolol Succinate 100 mg 04/23/20 09:00 04/23/20 09:05 Metoprolol Succinate Er 100 Mg Tab.Er.24h PO 100 mg DAILY KEIKO Administration Protocol Pharmacy Consult 1 each 04/22/20 14:16 Consult Rx Perform Med Rec MISCELLANE ONCE PRN Consult order Pharmacy Consult 1 each 04/22/20 16:49 Consult Rx Perform Med Rec MISCELLANE ONCE PRN Consult order Sodium Chloride 3 ml 04/23/20 00:00 04/23/20 09:05 0.9 % Sodium Chloride Flush 3 Ml Syringe IVFLUSH Not Given QSHIFT [facility] Labs CBC & Chem 7: 04/23/20 06:17 04/23/20 06:17 Assessment and Plan (1) Acute kidney injury: Status: Acute (2) Hepatitis C: Status: Acute (3) Hyperlipidemia: Status: Acute (4) CVA (cerebral vascular accident): Status: Acute (5) Chronic kidney disease, stage 3: Status: Acute Assessment and Plan: 75-year-old male with diarrhea and flu-like symptoms for 1 week and was reported improving , seen in the PCP office and blood work was done, patient was instructed to come to emergency room for abdominal labs Acute kidney injury likely secondary to dehydration creatinine around 1.8 creatinine little improved continue IV fluid hold losartan and Aldactone and hydrochlorothiazide monitor kidney function avoid nephrotoxic Nephrology consult Microcytic anemia denies any blood in stool Iron studies consistent with iron deficiency anemia stool for occult blood negative hemoglobin dropped to 7.7 today monitor H&H Gi consult Will transfuse 1 unit of PRBCs hypertension continue amlodipine and Lopressor CAd s/p CABG continue statin and lopressor hold aldactone and olmesartan for DOMENICO History of carotid stenosis s/p carotid endartrectomy in past hold plavix given anemia for posisble procedure Diiabetes mellitus continue Lantus and sliding scale insulin monitor blood glucose DVT prophylaxis venodyne boot
--- NOTE | 2020-04-23 12:09 | MHC.CM.PN ---
pt reports he lives at home with his and is independent with all care and mobility. Pt uses a cane to ambulate and has no other DME. Pt denies being active with any community or home services. Pt has a HCP on file and confirms his PCP is Elías Arce. IMM delivered current DC plan is home with no services pt will self arrange transport
[2020-04-23 12:26] LABS: Glucose, Whole Blood 203 mg/dL (60-115)
--- NOTE | 2020-04-23 12:36 | PC.NURSE ---
Dr. Dietrich held AM humalog 30 units due to POC of 130. Dr. Dietrich held 1200 hu,alog 30 units due to POC 203 and patient being NPO
[2020-04-23 14:37] LABS: Glucose, Whole Blood 130 mg/dL (60-115)
--- NOTE | 2020-04-23 15:44 | P.CONNP_ITS ---
History of Present Illness Reason for Consult Consult date: 04/23/20 Reason for consult: domenico Chief Complaint Chief complaint: DOMENICO History of Present Illness Narrative: 75 year old gentleman them into the hospital with several day history of diarrhea feeling generally week. SCr 1.84 on adm previous was your .88. He also hemoglobin down to 9.5 to to 7.7 on adm whweras was 9.5 previously YeahHey.His outpatient meds include diuretics which of been place and hold he was given IV fluids.This morningsCr improved but not back to baseline. He denies use of nSAIDs. No GH/dysuria. No CP/SOB. UOP has picked up since gettign IVF Amputation of left great toe Chronic kidney disease, stage 3 CVA (cerebral vascular accident) Diabetes Hepatitis C High cholesterol HTN (hypertension) Hyperlipidemia Peripheral vascular disease Review of Systems Review of Systems Constitutional: No Weight loss, No Fever, + Chills, + Night Sweats, No Fatigue, No Malaise ENT/Mouth: No Hearing loss, No Ear Pain, No Nasal Congestion, No Sinus Pain, No Hoarseness, No sore throat, No Rhinorrhea, No Swallowing Difficulty Eyes: No Eye Pain, No Swelling, No Redness, No Foreign Body, No Discharge, No Vision Changes Cardiovascular: No Chest Pain, No SOB, No Dyspnea on Exertion, No Orthopnea, No Edema, No Palpitations Respiratory: No Cough, No Sputum, No Wheezing, No Smoke Exposure, No Dyspnea Gastrointestinal: No Nausea, No Vomiting, + Diarrhea, No Constipation, No abdominal Pain, No Hematochezia, No Melena Genitourinary: no irregular bleeding, No Dysuria, No Urinary Frequency, No Hematuria, No Urinary Incontinence, No Urgency, No Flank Pain, No Urinary Flow Changes, No Hesitancy Musculoskeletal: No joint pain, No Myalgias, No Joint Swelling Skin: No Skin Lesions, No rash Neuro: No Weakness, No Numbness, No Paresthesias, No Loss of Consciousness, No Dizziness, No Headache Psych: No Social Issues Heme/Lymph: No Bruising, No Bleeding,No Lymphadenopathy Endocrine: No Polyuria, No Polydipsia, No Temperature Intolerance Constitutional: Reports weakness Reports system reviewed and no additional complaints, except as documented and Reports weakness PMFSH Past Medical History Medical History Acute kidney injury Amputation of left great toe Chronic kidney disease, stage 3 CVA (cerebral vascular accident) Diabetes Hepatitis C High cholesterol HTN (hypertension) Hyperlipidemia Peripheral vascular disease Family History Family History Other CAD (coronary artery disease) Surgical History Surgical History H/O heart bypass surgery S/P CABG (coronary artery bypass graft) Social History Social History Household Members: Spouse Housing: House Do you presently have visiting nurse or other home services: No Smoking Status: Former smoker Tobacco Type: Cigarette Use of substances other than those prescribed or required for medical reasons: Yes 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 If so, by whom?: No Do you feel safe in your current relationship?: Yes Is there a partner from a previous relationship who is making you feel unsafe now?: No Are you made to feel afraid or neglected: No Advance Directives: No Advance Directives Information Provided: No Do you have thoughts of harming others: None Do you have a plan to hurt others: No Plan Recently lost weight without trying: No service: No Current occupational status: retired Meds Allergies Allergy/AdvReac Type Severity Reaction Status Date / Time No Known Allergies Allergy Verified 04/22/20 12:37 [No Known Allergies*] Home Medications Medication Instructions Recorded Confirmed Type amlodipine 1 tab PO DAILY 04/22/20 04/22/20 History atorvastatin 1 tab PO DAILY 04/22/20 04/22/20 History clopidogrel 1 tab PO DAILY 04/22/20 04/22/20 History gemfibrozil 1 tab PO BID 04/22/20 04/22/20 History hydralazine 100 tab PO BID 04/22/20 04/22/20 History insulin glargine [Lantus U-100 80 unit SUBCUT BID 04/22/20 04/22/20 History Insulin] insulin lispro 30 unit SUBCUT TIDWM 04/22/20 04/22/20 History metoprolol succinate 100 mg PO DAILY 04/22/20 04/22/20 History olmesartan 1 tab PO DAILY 04/22/20 04/22/20 History spironolacton-hydrochlorothiaz 1 tab PO DAILY 04/22/20 04/22/20 History Physical Exam Vital Signs: Last Vital Signs Temp 98.2 F 04/23/20 15:17 Pulse 68 04/23/20 15:17 Resp 18 04/23/20 15:17 BP 125/55 L 04/23/20 15:17 Pulse Ox 99 04/23/20 15:17 Body Mass Index 32.3 Const Other: Appears older than stated age General: cooperative and no acute distress; No intoxicated appearing Nutritional Appearance: average body habitus and obese Orientation/consciousness: patient oriented x3 HENMT Head: Yes normal to inspection Ears: hearing grossly normal bilaterally Eyes General: appearance normal, both eyes and all related structures Visual Murrell: normal visual murrell by confrontation Neck Neck: Yes normal visual inspection and No tender Thyroid: Thyroid normal Chest Chest palpation & inspection: normal inspection of the chest Resp Effort & Inspection: normal respiratory effort Auscultation: clear to auscultation bilaterally Cardio Other: Appears older than stated age Jugular venous distension: no JVD Rate: regular rate Rhythm: regular rhythm Heart sounds: S1 normal heart sound present and S2 normal heart sound present GI Other: Occult stool negative on digital exam developed the bedside, sent additional for lab Inspection: Yes normal to inspection Percussion: Yes normal to percussion Auscultation: normal bowel sounds General: Yes no CVA tenderness Back/Spine/Pelvis Back: no CVA tenderness Skin General skin exam: no rashes or lesions noted Neuro General: patient oriented x3 Extrem General: Yes normal to inspection Results Lab Results Result Diagrams: 04/23/20 06:17 04/23/20 06:17 Lab results: Chemistry 04/22/20 04/22/20 04/23/20 13:27 13:27 06:17 Hgb 8.3 L 7.7 L Sodium 136 Potassium 5.2 H Carbon Dioxide 17 L BUN 48 H Creatinine 1.84 H Calcium 9.3 04/23/20 06:17 Hgb Sodium 139 Potassium 4.5 Carbon Dioxide 18 L BUN 40 H Creatinine 1.49 H Calcium 8.8 Hematology 04/22/20 04/23/20 13:27 06:17 WBC 8.9 8.2 Hgb 8.3 L 7.7 L Plt Count 341 319 Urinalysis 04/22/20 15:44 Urine Color YELLOW Urine Appearance CLEAR Urine pH 5.5 Ur Specific [place] 1.010 Urine Protein NEG Urine Glucose (UA) NEG Urine Ketones NEG Urine Blood NEG Urine Nitrite NEG Ur Leukocyte Esterase NEG Urine RBC 0 Urine WBC 0 Ur Squamous Epith Cells NONE Assessment and Plan (1) Iron deficiency anemia due to chronic blood loss: Status: Acute 1.Non-Oliguric DOMENICO: c/w renal hypoperfusion from dehydration and diuretics; other possibilities seem unlikley given decr SCr and UA unremarkable and no hydro on CT 2.Diarrhea: w/u inprogress 3. Anemai 4. R exophtic renal cyst described as a simple cyst 5. NAGMA: c/diarrhea REC: cont to hold diuretics; cont IVF; follow UOP/renal func; check iron stores and stools for blood will follow with med team
[2020-04-23 16:31] LABS: Glucose, Whole Blood 105 mg/dL (60-115)
[2020-04-23 20:55] LABS: Glucose, Whole Blood 180 mg/dL (60-115)
[2020-04-23] MEDS: Atorvastatin Calcium 40 MG TABLET PO (21:09)
[2020-04-23] MEDS: 0.9 % Sodium Chloride 1,000 ML 75 ML IVCONT (23:08)
[2020-04-24 07:14] VITALS: BP 154/64; PULSE 72; RESP 20; TEMP 36.7; O2SAT 98
[2020-04-24 07:32] LABS: MANUAL DIFF FLAG NO
[2020-04-24 07:35] LABS: Basophils Percent Auto 0.5 % (0-2); Eosinophils Absolute Auto 0.2 X10*3/uL (0.0-0.4); Eosinophils Percent Auto 2.3 % (0-4); Hematocrit 29.4 % (42-52); Hemoglobin 8.6 g/dl (14.0-18.0); Imm Gran Abs Auto 0.03 X10*3/uL (0.00-0.03); Imm Gran Pct Auto 0.4 % (0.0-0.4); Lymphocytes Absolute Auto 1.7 X10*3/uL (1.2-4.9); Lymphocytes Percent Auto 21.4 % (20-40); Mean Corpuscular HGB Conc 29.3 g/dl (31.0-36.0); Mean Corpuscular Hemoglobin 22.4 pg (27.0-33.0); Mean Corpuscular Volume 76.6 fL (80-98); Mean Platelet Volume 10.3 fL (9.4-12.4); Monocytes Absolute Auto 0.7 X10*3/uL (0.1-1.2); Monocytes Percent Auto 9.2 % (2-11); Neutrophils Absolute Auto 5.1 X10*3/uL (2.0-8.3); Neutrophils Percent Auto 66.2 % (45-73); Platelet Count 331 X10*3/uL (160-400); Red Blood Count 3.84 X10*6/uL (4.60-5.80); Red Cell Distribution Width 16.3 % (11.0-16.0); White Blood Count 7.7 X10*3/uL (4.8-10.8)
[2020-04-24 08:23] LABS: Glucose, Whole Blood 81 mg/dL (60-115)
[2020-04-24 08:27] LABS: Anion Gap 17 (12-20); Blood Urea Nitrogen 30 mg/dL (9-16); Calcium 8.9 mg/dL (8.4-10.2); Carbon Dioxide 17 mmol/L (22-29); Chloride 112 mmol/L (96-108); Creatinine Clr Calc Pharmacy 64.7; Estimated Glomerular Filt Rate > 60; Glucose Random 80 mg/dL (60-115); Potassium 4.6 mmol/l (3.3-5.1); Sodium 141 mmol/L (135-145)
[2020-04-24] MEDS: gemfibroziL 600 MG TABLET PO (08:29)
[2020-04-24] MEDS: amLODIPine Besylate 10 MG TABLET PO (08:29)
[2020-04-24] MEDS: hydrALAZINE HCl 50 MG TABLET 100 MG PO (08:29)
[2020-04-24] MEDS: Metoprolol Succinate ER 100 MG TAB.ER.24H PO (08:30)
[2020-04-24] MEDS: Insulin Glargine,Hum.rec.anlog 100 UNIT/ML 10 ML VIAL 80 UNIT SUBCUT (09:26)
[2020-04-24 11:52] LABS: Glucose, Whole Blood 141 mg/dL (60-115)
[2020-04-24] MEDS: Insulin Lispro 100 UNIT/ML 3 ML VIAL 30 UNIT SUBCUT (12:02)
[2020-04-24 14:01] VITALS: BMI 32.3
[2020-04-24] MEDS: Sodium Ferric Gluconat/Sucrose 125 MG in 0.9 % Sodium Chloride 100 ML 100 MG IV (14:06)
--- NOTE | 2020-04-24 14:59 | PM.DS ---
DS: Providers Provider Date of admission: 04/22/20 16:56 Primary care physician: Elías Arce MD Consults: 04/22/20 19:22 Consult to Nephrology Routine Consulting Provider: Santino Costa Reason for consultation: for acute kidney injury 04/23/20 08:11 Consult to Gastroenterology Routine Consulting Provider: Glo Chavez Reason for consultation: microcytic anemia DS: Diagnosis Discharge Diagnosis (1) Iron deficiency anemia due to chronic blood loss: Status: Acute DS: Medications Discharge Medications Home Medications: Home Medications Medication Instructions Recorded Confirmed amlodipine 1 tab PO DAILY 04/22/20 04/22/20 atorvastatin 1 tab PO DAILY 04/22/20 04/22/20 clopidogrel 1 tab PO DAILY 04/22/20 04/22/20 gemfibrozil 1 tab PO BID 04/22/20 04/22/20 hydralazine 100 tab PO BID 04/22/20 04/22/20 insulin glargine [Lantus U-100 80 unit SUBCUT BID 04/22/20 04/22/20 Insulin] insulin lispro 30 unit SUBCUT TIDWM 04/22/20 04/22/20 metoprolol succinate 100 mg PO DAILY 04/22/20 04/22/20 olmesartan 1 tab PO DAILY 04/22/20 04/22/20 spironolacton-hydrochlorothiaz 1 tab PO DAILY 04/22/20 04/22/20 DS: Summary Hospital Course Hospital Course: Chief Complaint: diarrhea, flu-like symptoms 75-year-old male presented with diarrhea , feeling cold , fever flu like symptoms that started about 1 week ago, patient denies any cough, shortness of breath, patient was seen by PCP office, and blood work was done, patient was instructed to come back to emergency room today and was told that he has anemia and his kidney numbers are bad, in the ER patient found to have creatinine of 1.8 , patient's last known kidney numbers from August 2018 were 0.88, patient was tested for COVID and influenza was negative,chest x-ray shows no infiltrate, patient was reporting diarrhea Patient also found to have microcytic anemia with hemoglobin around 8, last hemoglobin August 2018 was around 9, patient denies any blood in stool. Hospital course: 1. Diarrhea--liekly due to viral gastroenteritis, covid is negative, C dif is negatv\janny . Overall diarrhea has improved 2. DOMENICO--likely prerenal.This has resolved with IVF. Initial creatinine 1.84 now 1.18 3. Anemia--occult blood negative. Was transfuse 1 units and was seen by Dr. Chavez and was recommended to to have colonoscopy on Sunday but he refuse to stay and therefore Dr. Chavez's office will arrange for egd and colonoscopy this coming week. He will receive one dose of IV iron before discharge. Status at Discharge Functional status at discharge: independent ambulation Time Spent with Patient Time attestation: Total time spent providing and/or coordinating discharge services: Physical Exam Vital Signs: Vital Signs: Last Vital Signs Temp 98.1 F 04/24/20 07:14 Pulse 72 04/24/20 07:14 Resp 20 04/24/20 07:14 BP 154/64 H 04/24/20 07:14 Pulse Ox 98 04/24/20 07:14 Body Mass Index 32.3 General: AO X 3, no acute distress Resp: CTA bilateral CVS: S1,S2,RRR GI: +BS, NT, no distention Skin: No rash Neuro: motor grossly intact Psych: appropriate affect DS: Data Data Completed and Pending Labs on day of discharge: 04/22/20 12:45 ECG 12 lead EKG Stat EKG Documentation DIRECTED 04/22/20 12:46 0.9 % Sodium Chloride [Ns] 500 ml IV 999 mls/hr 04/22/20 13:00 XR chest 1V Stat 04/22/20 13:27 C Reactive Protein Stat Complete Blood Count Auto Diff Stat Comprehensive Met. Panel Stat Ferritin Stat Lactate Dehydrogenase Stat Lactic Acid Stat Partial Thromboplastin Time Stat Procalcitonin Stat Prothrombin Time INR Stat SARS-CoV2/FLU/RSV Stat Troponin-I High Sensitivity Stat 04/22/20 15:06 [id number] Stat 04/22/20 15:44 UA ClnCatch+Micro w/rflx Cult Stat 04/22/20 16:51 Transfer Order Routine 04/22/20 19:22 Pulse Oximetry Q4HR 04/22/20 19:51 Ferritin Stat IRON PROFILE Stat 04/22/20 20:25 Glucose, Whole Blood Routine 04/22/20 21:00 Enoxaparin Sodium [Lovenox] 40 mg SUBCUT Q24H 04/23/20 CT abdomen pelvis w con Routine 04/23/20 06:17 Basic Metabolic Panel DAILY@0600 Complete Blood Count Auto Diff DAILY@0600 04/23/20 07:38 Glucose, Whole Blood Routine 04/23/20 08:50 [id number] Stat 04/23/20 09:00 Clopidogrel Bisulfate [Plavix] 75 mg PO DAILY 04/23/20 09:10 Glucose, Whole Blood Routine 04/23/20 11:39 Glucose, Whole Blood Routine 04/23/20 13:35 Red Blood Cells Routine Type and Screen Routine 04/23/20 16:19 Glucose, Whole Blood Routine 04/23/20 20:41 Glucose, Whole Blood Routine 04/24/20 06:57 Basic Metabolic Panel DAILY@0600 Complete Blood Count Auto Diff DAILY@0600 04/24/20 07:14 Glucose, Whole Blood Routine 04/24/20 11:16 Glucose, Whole Blood Routine 04/24/20 13:34 Sodium Ferric Gluconat/Sucrose [Ferrlecit] 125 mg 0.9 % Sodium Chloride [Ns] 100 ml IV ONCE Laboratory Last Values WBC 7.7 X10*3/uL (4.8-10.8) 04/24/20 06:57 RBC 3.84 X10*6/uL (4.60-5.80) L 04/24/20 06:57 Hgb 8.6 g/dl (14.0-18.0) L 04/24/20 06:57 Hct 29.4 % (42-52) L 04/24/20 06:57 MCV 76.6 fL (80-98) L 04/24/20 06:57 MCH 22.4 pg (27.0-33.0) L 04/24/20 06:57 MCHC 29.3 g/dl (31.0-36.0) L 04/24/20 06:57 RDW 16.3 % (11.0-16.0) H 04/24/20 06:57 Plt Count 331 X10*3/uL (160-400) 04/24/20 06:57 MPV 10.3 fL (9.4-12.4) 04/24/20 06:57 Immature Gran % (Auto) 0.4 % (0.0-0.4) 04/24/20 06:57 Neut % (Auto) 66.2 % (45-73) 04/24/20 06:57 Lymph % (Auto) 21.4 % (20-40) 04/24/20 06:57 [place] % (Auto) 9.2 % (2-11) 04/24/20 06:57 Eos % (Auto) 2.3 % (0-4) 04/24/20 06:57 Baso % (Auto) 0.5 % (0-2) 04/24/20 06:57 Lymph # (Auto) 1.7 X10*3/uL (1.2-4.9) 04/24/20 06:57 [place] # (Auto) 0.7 X10*3/uL (0.1-1.2) 04/24/20 06:57 Eos # (Auto) 0.2 X10*3/uL (0.0-0.4) 04/24/20 06:57 Baso # (Auto) 0.0 X10*3/uL (0.0-0.2) 04/24/20 06:57 Abs Immat Gran (auto) 0.03 X10*3/uL (0.00-0.03) 04/24/20 06:57 Absolute Neuts (auto) 5.1 X10*3/uL (2.0-8.3) 04/24/20 06:57 Absolute Nucleated RBC 0.000 X10*3/uL (0.0-0.012) 04/24/20 06:57 Nucleated RBC % (auto) 0.0 /100WBC (0.0-0.2) 04/24/20 06:57 PT 12.9 SEC (10.8-13.0) 04/22/20 13:27 INR 1.1 (0.9-1.1) 04/22/20 13:27 APTT 38.5 SEC (24.1-38.0) H 04/22/20 13:27 Sodium 141 mmol/L (135-145) 04/24/20 06:57 Potassium 4.6 mmol/l (3.3-5.1) 04/24/20 06:57 Chloride 112 mmol/L (96-108) H 04/24/20 06:57 Carbon Dioxide 17 mmol/L (22-29) L 04/24/20 06:57 Anion Gap 17 (12-20) 04/24/20 06:57 BUN 30 mg/dL (9-16) H 04/24/20 06:57 Creatinine 1.18 mg/dL (0.5-1.4) 04/24/20 06:57 Estim Creat Clear Calc 64.7 04/24/20 06:57 Estimated GFR > 60 04/24/20 06:57 POC Glucose 141 mg/dL (60-115) H 04/24/20 11:16 Random Glucose 80 mg/dL (60-115) D 04/24/20 06:57 Lactic Acid 1.2 mmol/L (0.5-2.0) 04/22/20 13:27 Calcium 8.9 mg/dL (8.4-10.2) 04/24/20 06:57 Iron 19 mcg/dL (45-160) L 04/22/20 19:51 TIBC 498 mcg/dL (228-428) H 04/22/20 19:51 % Saturation 4 % (15-50) L 04/22/20 19:51 Unsat Iron Binding 479 ug/dL 04/22/20 19:51 Ferritin 16 ng/mL (20-250) L 04/22/20 19:51 Total Bilirubin 0.3 mg/dL (0.0-1.0) 04/22/20 13:27 AST 41 U/L (5-37) H 04/22/20 13:27 ALT 28 U/L (0-40) 04/22/20 13:27 Alkaline Phosphatase 164 U/L (39-117) H 04/22/20 13:27 Lactate Dehydrogenase 205 U/L (118-273) 04/22/20 13:27 Troponin I High Sens 6.9 ng/L (<3.5-35.0) 04/22/20 13:27 C-Reactive Protein 1.02 mg/dL (< or = 0.50) H 04/22/20 13:27 Total Protein 7.7 g/dL (6.5-8.0) 04/22/20 13:27 Albumin 4.6 g/dL (3.5-5.0) 04/22/20 13:27 Procalcitonin 0.11 ng/mL 04/22/20 13:27 Urine Color YELLOW 04/22/20 15:44 Urine Appearance CLEAR 04/22/20 15:44 Urine pH 5.5 (5.0-8.0) 04/22/20 15:44 Ur Specific [place] 1.010 (1.005-1.025) 04/22/20 15:44 Urine Protein NEG MG/DL (NEG-TRACE) 04/22/20 15:44 Urine Glucose (UA) NEG MG/DL (NEG) 04/22/20 15:44 Urine Ketones NEG MG/DL (NEG) 04/22/20 15:44 Urine Blood NEG (NEG) 04/22/20 15:44 Urine Nitrite NEG (NEG) 04/22/20 15:44 Ur Leukocyte Esterase NEG (NEG) 04/22/20 15:44 Urine RBC 0 /HPF (0) 04/22/20 15:44 Urine WBC 0 /HPF (0-4) 04/22/20 15:44 Ur Squamous Epith Cells NONE /LPF 04/22/20 15:44 Urine Bacteria NONE /LPF 04/22/20 15:44 Stool Occult Blood NEG (NEG) 04/23/20 08:50 Coronavirus (PCR) NEGATIVE (Negative) 04/22/20 13:27 Influenza Type A (PCR) NEGATIVE (Negative) 04/22/20 13:27 Influenza Type B (PCR) NEGATIVE (Negative) 04/22/20 13:27 RSV RNA Qual (PCR) NEGATIVE (Negative) 04/22/20 13:27 Blood Type O Positive 04/23/20 13:35 Antibody Screen NEGATIVE 04/23/20 13:35 Crossmatch See Detail 04/23/20 13:35 Preliminary micro results at discharge 04/22/20 14:36 Blood Culture - Preliminary Blood - Venous No growth after 24 hours. 04/22/20 14:36 Blood Culture - Preliminary Blood - Venous No growth after 24 hours. Discharge Plan Discharge Anticipated Discharge Date/Time: 04/24/20 14:55 Patient Disposition: Home, Self-Care Referrals: Elías Arce MD [Primary Care Provider] - Discharge Medications: Continued atorvastatin 40 mg tablet 1 tab PO DAILY RF: 0 Lantus U-100 Insulin 100 unit/mL solution 80 unit subcut BID RF: 0 spironolacton-hydrochlorothiaz 25-25 mg tablet 1 tab PO DAILY RF: 0 metoprolol succinate 200 mg tablet extended release 24 hr 100 mg PO DAILY RF: 0 amlodipine 10 mg tablet 1 tab PO DAILY RF: 0 gemfibrozil 600 mg tablet 1 tab PO BID RF: 0 hydralazine 100 mg tablet 100 tab PO BID RF: 0 insulin lispro 100 unit/mL solution 30 unit subcut TIDWM RF: 0 olmesartan 40 mg tablet 1 tab PO DAILY RF: 0 Held clopidogrel 75 mg tablet 1 tab PO DAILY RF: 0 Hold Instructions: Resume on 04/24/20. Discharge Orders: Discharge Order (Routine); Ordered 04/24/20 Ordered By: Narendra Greene Diet: advance to usual diet Activity on Discharge: As tolerated Discharge Date/Time: 04/24/20 17:00 Visit Report Forms: Patient Portal Discharge page Care Plan Goals: To have colonoscopy done Health Concerns: Anemia Plan of Treatment: Follow up with Dr. Chavez to have colonoscopy done. Hold Plavix until after colonoscopy
[2020-04-24 15:01] LABS: CDIFF Ag Negative (Negative); CDIFF Internal ctrl Dots and bkg OK (V); CDiff Toxin Negative (Negative)
[2020-04-24] MEDS: 0.9 % Sodium Chloride Flush 3 ML SYRINGE IVFLUSH (15:18)
--- NOTE | 2020-04-24 15:52 | MHC.CM.PN ---
PATIENT IS DISCHARGED HOME - SELF CARE. FAMILY TO PROVIDE TRANSPORT. RN AWARE
[2020-04-24 16:00] VITALS: BP 146/60; PULSE 71; RESP 18; TEMP 37.1; O2SAT 98
[2020-04-24 16:27] LABS: Glucose, Whole Blood 54 mg/dL (60-115)
[2020-04-24 16:53] LABS: Glucose, Whole Blood 91 mg/dL (60-115)
--- NOTE | 2020-04-24 18:35 | P.PNNP_ITS ---
Subjective Subjective Date of Service: 04/30/20 Physical Exam Vital Signs: Vital Signs: Last Vital Signs Temp 98.7 F 04/24/20 16:00 Pulse 71 04/24/20 16:00 Resp 18 04/24/20 16:00 BP 146/60 H 04/24/20 16:00 Pulse Ox 98 04/24/20 16:00 Body Mass Index 32.3 Const: Other: Appears older than stated age General: cooperative and no acute distress; No intoxicated appearing Nutritional Appearance: average body habitus and obese Orientation/consciousness: patient oriented x3 HENMT: Head: Yes normal to inspection Ears: hearing grossly normal bilaterally Eyes: General: appearance normal, both eyes and all related structures V isual Murrell: normal visual murrell by confrontation Neck: Neck: Yes normal visual inspection and No tender Thyroid: Thyroid normal Chest: Chest palpation & inspection: normal inspection of the chest Resp: Effort & Inspection: normal respiratory effort Auscultation: clear to auscultation bilaterally Cardio: Other: Appears older than stated age Jugular venous distension: no JVD Rate: regular rate Rhythm: regular rhythm Heart sounds: S1 normal heart sound present and S2 normal heart sound present GI: Other: Occult stool negative on digital exam developed the bedside, sent additional for lab Inspection: Yes normal to inspection Percussion: Yes normal to percussion Auscultation: normal bowel sounds : General: Yes no CVA tenderness Back/Spine/Pelvis: Back: no CVA tenderness Skin: General skin exam: no rashes or lesions noted Neuro: General: patient oriented x3 Extrem: General: Yes normal to inspection Objective Data Labs CBC & Chem 7: 04/24/20 06:57 04/24/20 06:57 Labs: Laboratory Results - last 24 hr 04/23/20 04/23/20 04/24/20 13:35 20:41 06:57 WBC 7.7 RBC 3.84 L Hgb 8.6 L Hct 29.4 L MCV 76.6 L MCH 22.4 L MCHC 29.3 L RDW 16.3 H Plt Count 331 MPV 10.3 Immature Gran % (Auto) 0.4 Neut % (Auto) 66.2 Lymph % (Auto) 21.4 [place] % (Auto) 9.2 Eos % (Auto) 2.3 Baso % (Auto) 0.5 Lymph # (Auto) 1.7 [place] # (Auto) 0.7 Eos # (Auto) 0.2 Baso # (Auto) 0.0 Abs Immat Gran (auto) 0.03 Absolute Neuts (auto) 5.1 Absolute Nucleated RBC 0.000 Nucleated RBC % (auto) 0.0 Sodium Potassium Chloride Carbon Dioxide Anion Gap BUN Creatinine Estim Creat Clear Calc Estimated GFR POC Glucose 180 H Random Glucose Calcium C. difficile Toxin A&B C. difficile Antigen C. difficile Interpret Blood Type O Positive Antibody Screen NEGATIVE Crossmatch See Detail 04/24/20 04/24/20 04/24/20 06:57 07:14 11:16 WBC RBC Hgb Hct MCV MCH MCHC RDW Plt Count MPV Immature Gran % (Auto) Neut % (Auto) Lymph % (Auto) [place] % (Auto) Eos % (Auto) Baso % (Auto) Lymph # (Auto) [place] # (Auto) Eos # (Auto) Baso # (Auto) Abs Immat Gran (auto) Absolute Neuts (auto) Absolute Nucleated RBC Nucleated RBC % (auto) Sodium 141 Potassium 4.6 Chloride 112 H Carbon Dioxide 17 L Anion Gap 17 BUN 30 H Creatinine 1.18 Estim Creat Clear Calc 64.7 Estimated GFR > 60 POC Glucose 81 141 H Random Glucose 80 D Calcium 8.9 C. difficile Toxin A&B C. difficile Antigen C. difficile Interpret Blood Type Antibody Screen Crossmatch 04/24/20 04/24/20 04/24/20 13:30 16:10 16:49 WBC RBC Hgb Hct MCV MCH MCHC RDW Plt Count MPV Immature Gran % (Auto) Neut % (Auto) Lymph % (Auto) [place] % (Auto) Eos % (Auto) Baso % (Auto) Lymph # (Auto) [place] # (Auto) Eos # (Auto) Baso # (Auto) Abs Immat Gran (auto) Absolute Neuts (auto) Absolute Nucleated RBC Nucleated RBC % (auto) Sodium Potassium Chloride Carbon Dioxide Anion Gap BUN Creatinine Estim Creat Clear Calc Estimated GFR POC Glucose 54 L* 91 Random Glucose Calcium C. difficile Toxin A&B Negative C. difficile Antigen Negative C. difficile Interpret SEE NOTE Blood Type Antibody Screen Crossmatch Microbiology Microbiology Results: Microbiology 04/22/20 14:36 Blood - Venous Blood Culture - Preliminary No growth after 48 hours. 04/22/20 14:36 Blood - Venous Blood Culture - Preliminary No growth after 48 hours. Assessment & Plan Assessment and plan (1) Iron deficiency anemia due to chronic blood loss: Status: Acute Assessment and Plan: 1.Non-Oliguric DOMENICO: c/w renal hypoperfusion from dehydration and diuretics; other possibilities seem unlikley given decr SCr and UA unremarkable and no hydro on CT 2.Diarrhea: w/u inprogress 3. Anemai 4. R exophtic renal cyst described as a simple cyst 5. NAGMA: c/diarrhea REC: cont to hold diuretics; cont IVF; follow UOP/renal func; check iron stores and stools for blood will follow with med team Time Spent With Patient Time: Total time spent is greater than 50% in coordination of care (as documented) at patient's floor/unit and/or counseling patient:
== END 2020-04-24 17:00 | disposition home or self-care (01) | DRG 392 ==
LOC: HO.ED 12:48 → HO.S3 17:19
PROVIDERS: Nurse Practitioner Primary Care; Admitting Provider Internal Medicine; Emergency Provider Emergency Medicine; PCP Internal Medicine; Visit Provider Internal Medicine
DX: A08.4 Viral intestinal infection, unspecified (principal); N17.9 Acute kidney failure, unspecified; I12.9 Hypertensive chronic kidney disease with stage 1 through stage 4 chronic kidney disease, or unspecified chronic kidney disease; E78.5 Hyperlipidemia, unspecified; E11.22 Type 2 diabetes mellitus with diabetic chronic kidney disease; I25.10 Atherosclerotic heart disease of native coronary artery without angina pectoris; Z95.1 Presence of aortocoronary bypass graft; E86.0 Dehydration; D50.0 Iron deficiency anemia secondary to blood loss (chronic); N18.30 Chronic kidney disease, stage 3 unspecified; Z20.828 Contact with and (suspected) exposure to other viral communicable diseases; Z87.891 Personal history of nicotine dependence; Z79.02 Long term (current) use of antithrombotics/antiplatelets; Z79.4 Long term (current) use of insulin; Z79.899 Other long term (current) drug therapy
CPT/HCPCS: 0241U; 36415; 71045; 74177; 80048; 80053; 81001; 82272; 82728; 82947; 83540; 83605; 83615; 84145; 84484; 85025; 85610; 85730; 86140; 86850; 86900; 86901; 86920; 86923; 87040; 87324; 87449; 93005; 99285; J1650; J2916; P9016

== ENCOUNTER 2020-04-29 11:44 | Day surgery (SDC) | payer MEDICARE, SELFPAY ==
--- NOTE | 2020-04-27 12:03 | HO.ANESPROP2 ---
Documented by User: Kay Small 04/27/20 12:17 HPI - Anesthesia Eval Consult details Narrative: 75yo [place] for Upper Endoscopy [place] [facility] [place] with DOMENICO (r/t gastroenteritis, resolved with IVF) and anemia (received IV iron during admission). [facility] Past Medical History Medical History Acute kidney injury Amputation of left great toe CAD (coronary artery disease) Chronic kidney disease, stage 3 CVA (cerebral vascular accident) Diabetes Hepatitis C High cholesterol HTN (hypertension) Hyperlipidemia Peripheral vascular disease Family History Family History Other CAD (coronary artery disease) Surgical History Surgical History S/P CABG (coronary artery bypass graft) (~2006) S/P carotid endarterectomy (~08/2018) Social History Social History Household Members: Spouse Housing: House Smoking Status: Former smoker Tobacco Type: Cigarette Use of substances other than those prescribed or required for medical reasons: Yes Substance Use Type: Marijuana Advance Directives: No Advance Directives Information Provided: No Advance Directives on File: No service: No Current occupational status: retired [employer] Allergies Allergy/AdvReac Type Severity Reaction Status Date / Time No Known Allergies Allergy Verified 04/22/20 12:37 [No Known Allergies*] Home Medications Medication Instructions Recorded Confirmed Type Lantus U-100 Insulin 80 unit SUBCUT BID 04/22/20 04/22/20 History amlodipine 1 tab PO DAILY 04/22/20 04/22/20 History atorvastatin 1 tab PO DAILY 04/22/20 04/22/20 History clopidogrel 1 tab PO DAILY 04/22/20 04/22/20 History gemfibrozil 1 tab PO BID 04/22/20 04/22/20 History hydralazine 100 tab PO BID 04/22/20 04/22/20 History insulin lispro 30 unit SUBCUT TIDWM 04/22/20 04/22/20 History metoprolol succinate 100 mg PO DAILY 04/22/20 04/22/20 History olmesartan 1 tab PO DAILY 04/22/20 04/22/20 History spironolacton-hydrochlorothiaz 1 tab PO DAILY 04/22/20 04/22/20 History Exam Exam Date and Time: April 27, 2020 1203 Pertinent Lab Results Pertinent Lab Results: Laboratory Tests 04/24/20 04/24/20 06:57 06:57 WBC 7.7 Hgb 8.6 L Hct 29.4 L Plt Count 331 Sodium 141 Potassium 4.6 Chloride 112 H Carbon Dioxide 17 L BUN 30 H Creatinine 1.18 Narrative Narrative: EKG 03/2020: Normal sinus rhythm Right bundle branch block ECHO 2018: LVEF 60%, mild conc LVH, no RWMA, mild MAC, trace MR, mod LAE, asc aorta@3.9cm Assessment and Plan Assessment Anesthesia Assessment: Chart Reviewed Documented by User: Amari Woo MD 04/29/20 12:51 [facility] Past Medical History Medical History Acute kidney injury Amputation of left great toe CAD (coronary artery disease) Chronic kidney disease, stage 3 CVA (cerebral vascular accident) Diabetes Hepatitis C High cholesterol HTN (hypertension) Hyperlipidemia Peripheral vascular disease Family History Family History Other CAD (coronary artery disease) Surgical History Surgical History S/P CABG (coronary artery bypass graft) (~2006) S/P carotid endarterectomy (~08/2018) Social History Social History Household Members: Spouse Housing: House Smoking Status: Former smoker Tobacco Type: Cigarette Use of substances other than those prescribed or required for medical reasons: Yes Substance Use Type: Marijuana Advance Directives: No Advance Directives Information Provided: No Advance Directives on File: No service: No Current occupational status: retired Meds Allergies Allergy/AdvReac Type Severity Reaction Status Date / Time No Known Allergies Allergy Verified 04/22/20 12:37 [No Known Allergies*] Home Medications Medication Instructions Recorded Confirmed Type Lantus U-100 Insulin 80 unit SUBCUT BID 04/22/20 04/22/20 History amlodipine 1 tab PO DAILY 04/22/20 04/22/20 History atorvastatin 1 tab PO DAILY 04/22/20 04/22/20 History clopidogrel 1 tab PO DAILY 04/22/20 04/22/20 History gemfibrozil 1 tab PO BID 04/22/20 04/22/20 History hydralazine 100 tab PO BID 04/22/20 04/22/20 History insulin lispro 30 unit SUBCUT TIDWM 04/22/20 04/22/20 History metoprolol succinate 100 mg PO DAILY 04/22/20 04/22/20 History olmesartan 1 tab PO DAILY 04/22/20 04/22/20 History spironolacton-hydrochlorothiaz 1 tab PO DAILY 04/22/20 04/22/20 History Exam Airway Mallampati Class: III TM Dist: >3cm Neck ROM: Full Denture: Upper and Lower Heart: RRR Assessment and Plan Assessment Anesthesia Assessment: Anesthesia Plan Discussed and Chart Reviewed Final Anesthetic Review NPO: Yes ASA Class: III Final Preanesthetic Review: No Changes in Pt Med Stat, Meds/Allgs Chart Reviewed, Consent Obtained/Reviewed and Anes Risks/Benef Reviewed Patient Risk: Intermediate Procedure Risk: Low Anesthetic Plan Anesthetic Plan: MAC: Disposition: Standard PACU
[2020-04-28 11:04] VITALS: BMI 30.9
[2020-04-29 12:12] VITALS: BP 144/68; PULSE 99; RESP 18; TEMP 36.4; O2SAT 98
[2020-04-29] MEDS: Lactated Ringers 1,000 ML 100 ML IVCONT (12:18)
[2020-04-29 12:20] LABS: Glucose, Whole Blood 97 mg/dL (60-115)
--- NOTE | 2020-04-29 12:47 | P.HPSUR_ITS ---
Pre-Procedural Eval Section B Chief Complaint: anemia Relevant Family History (Specify if Yes): No Relevant Social History: None Present Medications: see Short Stay Collaborative assessment Medical History: Significant History (Acute kidney injury Amputation of left great toe CAD (coronary artery disease) Chronic kidney disease, stage 3 CVA (cerebral vascular accident) Diabetes Hepatitis C High cholesterol HTN (hypertension) Hyperlipidemia Peripheral vascular disease) History of Previous Operations: Relevant previous surgery/procedure and date(s) (CABG) Allergies: Allergies Allergy/AdvReac Type Severity Reaction Status Date / Time No Known Allergies Allergy Verified 04/22/20 12:37 [No Known Allergies*] Review of Systems Sugical H&P ROS: Negative: Constitution, Cardiovascular, Respiratory, Neurological, Psychiatric, Hem-Onc, Allergic/Immunologic, Gastrointestinal, Gen itourinary, Musculoskeletal, Integumentary and Endocrine and Yes, Specify: Eyes/Ears/Nose/Throat (vision impaired due to cataracts, basal cell ca right eyelid) Exam Surgical H&P Exam: Normal: HEENT, Normal: Heart, Normal: Lungs, Normal: Extremities, Normal: Abdomen and Normal: Neurological and Significant Findings: Skin (basal cell ca right periorbital area) Plan Diagnosis/Plan: Unchanged I have reviewed the history and physical and performed a pertinent physical examination on my patient. No changes have occurred unless specified.
--- NOTE | 2020-04-29 12:48 | PM.OP ---
Brief Operative Note Date of Service: 04/29/20 Pre-op diagnosis: anemia Post-op diagnosis: same Procedure: Operative Information Procedure Description: EGD, Colonoscopy FLEXIBLE TRANSORAL UPPER GASTROINTESTINAL ENDOSCOPY AND COLONOSCOPY PROCEDURE NOTE UPPER ENDOSCOPY Consent: Indications for the procedure and potential complications of bleeding, perforation, reaction to medications and missed diagnosis were discussed with the patient and informed consent was obtained. Instrument: Olympus GIF H 190 J mid size upper endoscope Monitoring: Vital signs and clinical assessment, continuous EKG monitoring, Pulse oximetry, Carbon Dioxide monitoring and blood pressure monitoring were done throughout the procedure. Procedure: The patient was placed in the left lateral decubitis position and pre-procedure medications were administered and a bite block was placed. The endoscope was inserted into the mouth and advanced under direct vision to the third part of duodenum. A careful inspection was made as the upper endoscope was withdrawn including a retroflexed examination of the proximal stomach; Findings and interventions are described below. 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 Grade 2 flap valve on retroflexed examination of the cardia. Duodenum: Normal bulb and descending duodenum, bx taken to r/o celiac sprue Intervention: Biopsies as noted above COLONOSCOPY Instrument: Olympus variable stiffness pediatric scope 190L Colonoscopy Monitoring: Vital signs and clinical assessment, continuous EKG monitoring, Pulse oximetry, Carbon Dioxide monitoring and blood pressure monitoring were done throughout the procedure. Colon withdrawal time was 19 minutes. Procedure: The patient was placed in the left lateral decubitis position and pre-procedure medications were administered. After a digital rectal examination of the ano-rectum, the video colonoscope was inserted into the rectum and advanced through the colon to the cecum/TI. The colonoscope was slowly withdrawn in a retrograde panoramic fashion and the colon mucosa was carefully examined including a retroflexed view of the rectum. Findings and interventions are described below. Procedure Difficulty:easy Findings: Terminal Ileum-normal, no blood seen Cecum:normal, 10 mm sessile polyp removed with cold snare, x2 clips applied for haemostasis Ascending Colon: Granular mucosa, bx taken, also 3-5 mm sessile polyp removed with forceps Transverse Colon -normal Descending Colon:7-8 mm sessile polyp removed with forceps Sigmoid Colon: 8-10 mm sessile polyp removed with cold snare Rectum: Retroflexion with small internal hemorrhoids, grade I Anorectum - normal Colon preparation: [place] Bowel Preparation Scale Right colon; 2 Transverse colon: 1 Left colon; 2 (0 = Unprepared colon segment with mucosa not seen due to solid stool that cannot be cleared. 1 = Portion of mucosa of the colon segment seen, but other areas of the colon segment not well seen due to staining, residual stool and/or opaque liquid. 2 = Minor amount of residual staining, small fragments of stool and/or opaque liquid, but mucosa of colon segment seen well. 3 = Entire mucosa of colon segment seen well with no residual staining, small fragments of stool or opaque liquid) Impression and Post Procedure Diagnosis: Endoscopy Findings: suspected Barretts Colonoscopy Findings: internal hemorrhoids polyps Plan: Await Pathology results Repeat Colonoscopy in 1-2 years or earlier if clinically indicated High fiber diet leaflet avoid straining at stool, epsom salts and sitz bath, anusol supps or cream prn capsule endoscopy if bx are negative Above findings were reviewed with the patient and relevant handouts were provided if indicated. Surgeon: Glo Chavez MD Anesthesia: MAC Estimated blood loss (mL): 0 Condition: stable Disposition: PACU
[2020-04-29 13:51] VITALS: BP 142/60; PULSE 72; RESP 16; TEMP 36.6; O2SAT 99
[2020-04-29 14:06] VITALS: BP 153/56; PULSE 83; RESP 21; TEMP 36.6; O2SAT 98
--- NOTE | 2020-04-29 14:30 | PC.NURSE ---
PATIENT DECLINED SITZ BATH. REPORTS UNWILLING TO UTILIZE. EDUCATED ALTERNATIVE MEASURES MUST KEEP AREA CLEAN
--- NOTE | 2020-04-29 14:33 | HO.POSTANES ---
Post Anesthesia Evaluation Post Anesthesia Evaluation Vital Signs: Vital Signs Temp Pulse Resp BP Pulse Ox 04/29/20 14:06 98 F 83 21 H 153/56 H 98 04/29/20 13:51 98 F 72 16 142/60 H 99 04/29/20 12:12 97.5 F 99 18 144/68 H 98 Anesthesia: Monitored Mental Status: Awake Pain Control: Satisfactory Nausea/Vomiting: None Hydration: Adequate Anesthesia-Related Issues: No Anes. Related Issues
== END 2020-04-29 14:35 | disposition home or self-care (01) ==
PROVIDERS: PCP Internal Medicine; Visit Provider Internal Medicine Gastroenterology
PROC: (CPT 45385; principal; 2020-04-29 14:00)
DX: D50.9 Iron deficiency anemia, unspecified (principal); D12.0 Benign neoplasm of cecum; D12.2 Benign neoplasm of ascending colon; D12.4 Benign neoplasm of descending colon; D12.5 Benign neoplasm of sigmoid colon; K64.0 First degree hemorrhoids; K22.70 Barrett's esophagus without dysplasia; K44.9 Diaphragmatic hernia without obstruction or gangrene; E11.22 Type 2 diabetes mellitus with diabetic chronic kidney disease; I12.9 Hypertensive chronic kidney disease with stage 1 through stage 4 chronic kidney disease, or unspecified chronic kidney disease; N18.30 Chronic kidney disease, stage 3 unspecified; Z79.4 Long term (current) use of insulin; Z79.899 Other long term (current) drug therapy; I25.10 Atherosclerotic heart disease of native coronary artery without angina pectoris; Z95.1 Presence of aortocoronary bypass graft; B19.20 Unspecified viral hepatitis C without hepatic coma; Z86.73 Personal history of transient ischemic attack (TIA), and cerebral infarction without residual deficits; Z79.01 Long term (current) use of anticoagulants; Z87.891 Personal history of nicotine dependence; F12.90 Cannabis use, unspecified, uncomplicated
CPT/HCPCS: 45385; 45380; 82947; 88305; J2370

== ENCOUNTER → 2020-05-19 08:14 | Outpatient (BNVA) | payer MEDICARE, SELFPAY | PROVIDERS: PCP Internal Medicine; Visit Provider Internal Medicine Gastroenterology | DX: K29.80 Duodenitis without bleeding (principal); Q27.33 Arteriovenous malformation of digestive system vessel | CPT/HCPCS: 91110 ==

== ENCOUNTER 2020-05-24 09:02 | Day surgery (SDC) | payer MEDICARE, SELFPAY ==
[2020-05-17 16:55] VITALS: BMI 32.4
--- NOTE | 2020-05-20 10:23 | MHC.SHP ---
Pre-Procedural Eval Section A The patient is an INPATIENT: No The History & Physical has been completed within 30 days and I have reviewed it.: Yes Section B Chief Complaint: cataract left eye Allergies: Allergies Allergy/AdvReac Type Severity Reaction Status Date / Time No Known Allergies Allergy Verified 04/22/20 12:37 [No Known Allergies*] Plan Diagnosis/Plan: Unchanged I have reviewed the history and physical and performed a pertinent physical examination on my patient. No changes have occurred unless specified.
--- NOTE | 2020-05-21 09:11 | P.CONAN_ITS ---
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 CAD (coronary artery disease) Chronic kidney disease, stage 3 CVA (cerebral vascular accident) Diabetes Hepatitis C High cholesterol HTN (hypertension) Hyperlipidemia Peripheral vascular disease Family History Family History Other CAD (coronary artery disease) Surgical History Surgical History (Updated 05/17/20 @ 16:55 by Karo Evans) History of ankle surgery History of esophagogastroduodenoscopy (EGD) Hx of colonoscopy S/P CABG (coronary artery bypass graft) (~2006) S/P carotid endarterectomy (~08/2018) Social History Social History (Updated 05/17/20 @ 16:50 by Karo Evans) Household Members: Spouse Housing: House Smoking Status: Former smoker Tobacco Type: Cigarette Smoking Quit Date: 2006 Use of substances other than those prescribed or required for medical reasons: No Substance Use Type: Marijuana Advance Directives: No Advance Directives Information Provided: No Advance Directives on File: No service: No Current occupational status: retired [employer] Allergies Allergy/AdvReac Type Severity Reaction Status Date / Time No Known Allergies Allergy Verified 04/22/20 12:37 [No Known Allergies*] Home Medications Medication Instructions Recorded Confirmed Type Lantus U-100 Insulin 80 unit SUBCUT BID 04/22/20 05/19/20 History amlodipine 1 tab PO DAILY 04/22/20 05/19/20 History atorvastatin 1 tab PO DAILY 04/22/20 05/19/20 History clopidogrel 1 tab PO DAILY 04/22/20 05/19/20 History insulin lispro 30 unit SUBCUT TID 04/22/20 05/19/20 History metoprolol succinate 100 mg PO BID 04/22/20 05/19/20 History olmesartan 1 tab PO DAILY 04/22/20 05/19/20 History spironolacton-hydrochlorothiaz 1 tab PO DAILY 04/22/20 05/19/20 History aspirin 81 mg tablet,delayed 81 mg PO DAILY 05/19/20 05/19/20 History release gemfibrozil 600 mg tablet 600 mg PO BID 05/19/20 05/19/20 History hydralazine 100 mg tablet 100 mg PO BID tab 05/19/20 05/19/20 History Exam Exam Date and Time: May 21, 2020 0911 Height,Weight and Vital Signs: Height 5 ft 10 in Weight 102.512 kg Narrative Narrative: EKG, SR, RBBB per pcp note Assessment and Plan Assessment Anesthesia Assessment: Chart Reviewed Documented by User: Lissy Edwards 05/24/20 10:58 [facility] Past Medical History Medical History (Updated 05/17/20 @ 16:51 by Karo Evans) Acute kidney injury 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 CAD (coronary artery disease) Chronic kidney disease, stage 3 CVA (cerebral vascular accident) Diabetes Hepatitis C High cholesterol HTN (hypertension) Hyperlipidemia Peripheral vascular disease Family History Family History Other CAD (coronary artery disease) Surgical History Surgical History (Updated 05/17/20 @ 16:55 by Karo Evans) History of ankle surgery History of esophagogastroduodenoscopy (EGD) Hx of colonoscopy S/P CABG (coronary artery bypass graft) (~2006) S/P carotid endarterectomy (~08/2018) Social History Social History (Updated 05/17/20 @ 16:50 by Karo Evans) Household Members: Spouse Housing: House Smoking Status: Former smoker Tobacco Type: Cigarette Smoking Quit Date: 2006 Use of substances other than those prescribed or required for medical reasons: No Substance Use Type: Marijuana Advance Directives: No Advance Directives Information Provided: No Advance Directives on File: No service: No Current occupational status: retired Meds Allergies Allergy/AdvReac Type Severity Reaction Status Date / Time No Known Allergies Allergy Verified 04/22/20 12:37 [No Known Allergies*] Home Medications Medication Instructions Recorded Confirmed Type Lantus U-100 Insulin 80 unit SUBCUT BID 04/22/20 05/19/20 History amlodipine 1 tab PO DAILY 04/22/20 05/19/20 History atorvastatin 1 tab PO DAILY 04/22/20 05/19/20 History clopidogrel 1 tab PO DAILY 04/22/20 05/19/20 History insulin lispro 30 unit SUBCUT TID 04/22/20 05/19/20 History metoprolol succinate 100 mg PO BID 04/22/20 05/19/20 History olmesartan 1 tab PO DAILY 04/22/20 05/19/20 History spironolacton-hydrochlorothiaz 1 tab PO DAILY 04/22/20 05/19/20 History aspirin 81 mg tablet,delayed 81 mg PO DAILY 05/19/20 05/19/20 History release gemfibrozil 600 mg tablet 600 mg PO BID 05/19/20 05/19/20 History hydralazine 100 mg tablet 100 mg PO BID tab 05/19/20 05/19/20 History Exam Airway Mallampati Class: II TM Dist: >3cm Neck ROM: Full Denture: Upper Partial: Lower Heart: RRR Lungs: CTA Assessment and Plan Assessment Anesthesia Assessment: Anesthesia Plan Discussed and Chart Reviewed Final Anesthetic Review NPO: Yes ([facility] ASA Class: III Final Preanesthetic Review: Meds/Allgs Chart Reviewed and Consent Obtained/Reviewed Patient Risk: Intermediate Procedure Risk: Low Anesthetic Plan Anesthetic Plan: MAC: Disposition: Standard PACU
[2020-05-24 11:08] VITALS: BP 154/63; PULSE 76; RESP 18; TEMP 36.5; O2SAT 98
[2020-05-24] MEDS: Lactated Ringers 500 ML 50 ML IV (11:20)
[2020-05-24] MEDS: Tetracaine HCl/PF 0.5% Oph Sol 4 ML DROPS 1 DROP EYE-LEFT (11:22)
[2020-05-24] MEDS: Phenylephrine HCL 2.5% Oph SoL 2 ML BOTTLE 1 DROP EYE-LEFT ×3 (11:24→11:31)
[2020-05-24] MEDS: Tropicamide 1 % Ophth Sol 3 ML BTL 1 DROP EYE-LEFT ×3 (11:25→11:32)
[2020-05-24 11:32] LABS: Glucose, Whole Blood 122 mg/dL (60-115)
--- NOTE | 2020-05-24 11:57 | HO.PNOPHT ---
Ophthalmology Procedure Procedure Date of Service: 05/24/20 Ophthalmology Viscoelastic: Healon Duet Dual Pack Pro Ophthalmology Lenses: TECPAULA [id number] (20) Procedure Notes: PREOPERATIVE DIAGNOSIS: Decreased visual acuity left eye secondary to cataract POSTOPERATIVE DIAGNOSIS: Same PROCEDURE: Left cataract extraction with intraocular lens insertion SURGEON: Rex Murphy M.D. ANESTHESIA: Topical/MAC ESTIMATED BLOOD LOSS: None COMPLICATIONS: None After obtaining informed consent, the patient was brought to the operation room suite and placed in the supine position. After adequate sedation per anesthesia, topical drops of Tetracaine were given to the left eye. The eye was then prepped and draped in the usual sterile fashion. The operating room microscope was then positioned over the operative eye and a lid speculum placed. A paracentesis was created. Viscoelastic was then instilled into the anterior chamber. A three plane incision was then created temporally, utilizing a 2.85 mm keratome. Capsulotomy forceps were then utilized to create a circular tear capsulotomy. Hydrodissection and hydrodelineation were carried out until adequate mobilization of the nucleus occurred. Phacoemulsification was then utilized to remove the dense central nucleus followed by removal of the cortical material utilizing the automated aspiration irrigation unit. Viscoat elastic was instilled into the posterior capsular bag followed by placement of a posterior chamber intraocular lens without difficulty. The residual Viscoat elastic was then removed utilizing the automated IA machine. The wound was check and found to be watertight. The patient tolerated the procedure well and the lid speculum was removed. Intracameral injection of Vigamox 0.1 mL followed by a subtenon injection of Kenalog-40 0.2 mL were administered. The patient will be seen in the a.m.
--- NOTE | 2020-05-24 11:58 | HO.POSTANES ---
Post Anesthesia Evaluation Post Anesthesia Evaluation Vital Signs: Vital Signs Temp Pulse Resp BP Pulse Ox 05/24/20 11:08 97.7 F 76 18 154/63 H 98 Anesthesia: Monitored Mental Status: Awake Pain Control: Satisfactory Nausea/Vomiting: None Hydration: Adequate Anesthesia-Related Issues: No Anes. Related Issues
[2020-05-24 12:00] VITALS: BP 105/51; PULSE 69; RESP 16; TEMP 36.3; O2SAT 95
== END 2020-05-24 12:09 | disposition home or self-care (01) ==
PROVIDERS: PCP Internal Medicine; Visit Provider Ophthalmology
PROC: (CPT 66985; principal; 2020-05-24 12:20)
DX: H25.12 Age-related nuclear cataract, left eye (principal); I69.998 Other sequelae following unspecified cerebrovascular disease; H54.61 Unqualified visual loss, right eye, normal vision left eye; I25.10 Atherosclerotic heart disease of native coronary artery without angina pectoris; Z95.1 Presence of aortocoronary bypass graft; E11.22 Type 2 diabetes mellitus with diabetic chronic kidney disease; I12.9 Hypertensive chronic kidney disease with stage 1 through stage 4 chronic kidney disease, or unspecified chronic kidney disease; N18.30 Chronic kidney disease, stage 3 unspecified; Z87.891 Personal history of nicotine dependence; Z79.4 Long term (current) use of insulin; Z79.899 Other long term (current) drug therapy; Z79.82 Long term (current) use of aspirin
CPT/HCPCS: 66984; 82947; J2250; J2405; J3010; J3300; V2632

== ENCOUNTER → 2020-06-08 12:40 | Outpatient (BNVA) | payer MEDICARE, SELFPAY | PROVIDERS: PCP Internal Medicine; Visit Provider Internal Medicine Gastroenterology | DX: Z76.89 Persons encountering health services in other specified circumstances (principal) | CPT/HCPCS: Q3014 ==

== ENCOUNTER 2020-06-28 10:19 | Outpatient (REF) | payer MEDICARE, SELFPAY ==
--- NOTE | ~2020-06-28 | US_ITS ---
EXAMINATION: US EXTRACRANIAL CAROTID DUPLEX, BILATERAL CLINICAL INFORMATION: This is a 75-year-old male with bilateral carotid artery stenosis. COMPARISON: Comparison is made to a previous study dated 06/26/2019 which reported a right external carotid artery occlusion. This also demonstrated bilateral 50-79% internal carotid artery stenoses. The patient is now status post left carotid endarterectomy. TECHNIQUE: Real-time ultrasound and Doppler techniques (integrating B-mode 2-D vascular images, Doppler spectral analysis and color-flow Doppler imaging) were utilized to interrogate the extracranial carotid arteries, the vertebral arteries and proximal subclavian arteries bilaterally. The degree of stenosis is determined by criteria similar to NASCET. FINDINGS: Right Side: 1. There is severe atherosclerotic plaque seen in the bifurcation/proximal ICA region. 2. The common carotid artery PSV proximally is 76 cm/s and distally 67 cm/s. 3. The proximal internal carotid artery is occluded. 4. The proximal external carotid artery PSV is 381 cm/s. A temporal tap was performed. This confirms that there is a high-grade stenosis within the external carotid artery. 5. The vertebral artery appears occluded. 6. The subclavian artery waveforms are stenotic with an elevated velocity of 214 cm/s. Left Side: 1. There is moderate atherosclerotic plaque seen in the bifurcation/proximal ICA region. 2. The common carotid artery PSV proximally is 103 cm/s and distally 83 cm/s. 3. The proximal internal carotid artery velocities are 115 cm/s systolic and 22 cm/s diastolic. 4. The proximal external carotid artery PSV is 135 cm/s. 5. The vertebral artery shows antegrade flow. 6. The subclavian artery waveforms are normal with a velocity of 81 cm/s.. US/US carotid duplex BI IMPRESSION: 1. RIGHT: The right internal carotid artery appears occluded. Additional testing was performed to differentiate the external carotid artery from the internal carotid artery. There is a high-grade stenosis in the right external carotid artery. There is a hemodynamically significant stenosis in the right subclavian artery. 2. LEFT: Minimal, non-hemodynamically significant stenosis of the proximal left internal carotid artery corresponding to a 0-49% stenosis by velocity criteria. 3. There is a change in the category severity of disease when compared to the previous study dated 06/26/2019 . It is now apparent that the right internal carotid artery is occluded. Previously, this was interpreted as the external carotid artery occlusion. The left internal carotid artery appears less severe status post carotid endarterectomy.
--- NOTE | ~2020-06-28 | US_ITS ---
EXAMINATION: COLOR-FLOW DUPLEX IMAGING OF THE BILATERAL LOWER EXTREMITY ARTERIAL SYSTEM. VELOCITY MEASUREMENTS THROUGHOUT THE FEMORAL ARTERIES WITH ANKLE-BRACHIAL PERIPHERAL ARTERIAL TESTING. Interventional Radiologist: Heriberto Neal M.D., F.S.I.R., F.A.C.R. CLINICAL INFORMATION: This is a 75-year-old male with hypertension, hyperlipidemia, diabetes, peripheral vascular disease. RIGHT FEMORAL RUNOFF VELOCITIES: The right common femoral artery measures 275 cm/s and biphasic. The right profunda femoral artery is 133 cm/s and is monophasic. Right proximal superficial femoral artery measures 177 cm/s and triphasic. Mid superficial femoral artery is 123 cm/s and triphasic. Distal right superficial femoral artery measures 134 cm/s and is triphasic. Right popliteal velocity measures 143 cm/s and is biphasic. The posterior tibial artery velocity measures 33 cm/s and was biphasic. The proximal posterior tibial artery is not seen and may be occluded. The right ankle-brachial index is 0.94. LEFT FEMORAL RUNOFF VELOCITIES: The left common femoral artery measures 212 cm/s and triphasic. The left profunda femoral artery is 229 cm/s and is biphasic. Left proximal superficial femoral artery measures 231 cm/s and biphasic. Mid superficial femoral artery is 112 cm/s and biphasic. Distal left superficial femoral artery measures 133 cm/s and is biphasic. Left popliteal velocity measures 57 cm/s and is biphasic. The posterior tibial artery velocity measures 35 cm/s and was monophasic. The left ankle-brachial index is 0.72. The waveforms appear to be depressed. US/US arterial duplex LE BI IMPRESSION: 1. There are bilateral elevated velocities within the common femoral arteries which appear to be hemodynamically significant. The patient may have inflow disease. 2. There is an elevated velocity in the proximal right profunda femoral artery consistent with hemodynamically significant stenosis. 3. There is a hemodynamically significant stenosis in the proximal left superficial femoral artery. 4. There is a significant drop off in the velocities in the tibial vessels. The right posterior tibial artery may be occluded in the proximal segment. 5. There is mild disease in the right lower extremity based on the ankle-brachial index of 0.94. There is moderate disease in the left lower extremity based on the ankle-brachial index of 0.72.
== END 2020-06-28 10:20 | disposition home or self-care (01) ==
LOC: HO.US 10:19
PROVIDERS: Visit Provider Surgery Vascular Surgery
DX: I65.23 Occlusion and stenosis of bilateral carotid arteries (principal); I73.9 Peripheral vascular disease, unspecified
CPT/HCPCS: 93880; 93923; 93925

== ENCOUNTER → 2020-07-13 11:02 | Outpatient (BNVA) | payer MEDICARE, SELFPAY | PROVIDERS: PCP Internal Medicine; Visit Provider Surgery Vascular Surgery | DX: I65.23 Occlusion and stenosis of bilateral carotid arteries (principal); I73.9 Peripheral vascular disease, unspecified; N18.30 Chronic kidney disease, stage 3 unspecified | CPT/HCPCS: 99212 ==

== ENCOUNTER 2020-07-19 13:33 | Outpatient (REF) | payer MEDICARE, SELFPAY ==
[2020-07-19 14:20] VITALS: BP 178/88; PULSE 78; RESP 16; TEMP 36.7; O2SAT 98
[2020-07-19 14:39] VITALS: BMI 32.3
== END 2020-07-19 13:34 | disposition home or self-care (01) ==
LOC: HO.MS 13:33
PROVIDERS: PCP Internal Medicine; Visit Provider Ophthalmology
PROC: (CPT 11642; principal; 2020-07-19 14:50)
DX: C44.1122 Basal cell carcinoma of skin of right lower eyelid, including canthus (principal)
CPT/HCPCS: 11642; 88305; 88331; 88332

== ENCOUNTER 2020-09-21 12:21 | Outpatient (REF) | payer MEDICARE, SELFPAY ==
[2020-09-21 13:34] LABS: MANUAL DIFF FLAG NO
[2020-09-21 13:42] LABS: Basophils Absolute Auto 0.1 X10*3/uL (0.0-0.2); Basophils Percent Auto 0.5 % (0-2); Eosinophils Absolute Auto 0.2 X10*3/uL (0.0-0.4); Eosinophils Percent Auto 1.8 % (0-4); Hematocrit 30.2 % (42-52); Hemoglobin 8.8 g/dl (14.0-18.0); Imm Gran Abs Auto 0.05 X10*3/uL (0.00-0.03); Imm Gran Pct Auto 0.4 % (0.0-0.4); Lymphocytes Absolute Auto 1.8 X10*3/uL (1.2-4.9); Lymphocytes Percent Auto 15.7 % (20-40); Mean Corpuscular HGB Conc 29.1 g/dl (31.0-36.0); Mean Corpuscular Hemoglobin 24.7 pg (27.0-33.0); Mean Corpuscular Volume 84.8 fL (80-98); Mean Platelet Volume 10.2 fL (9.4-12.4); Monocytes Absolute Auto 1.2 X10*3/uL (0.1-1.2); Monocytes Percent Auto 10.4 % (2-11); Neutrophils Absolute Auto 8.1 X10*3/uL (2.0-8.3); Neutrophils Percent Auto 71.2 % (45-73); Platelet Count 378 X10*3/uL (160-400); Red Blood Count 3.56 X10*6/uL (4.60-5.80); White Blood Count 11.4 X10*3/uL (4.8-10.8)
[2020-09-21 14:43] LABS: Ferritin 13 ng/mL (20-250)
== END 2020-09-21 12:22 | disposition home or self-care (01) ==
LOC: HO.LAB 12:21
PROVIDERS: PCP Internal Medicine; Referring Provider Internal Medicine; Visit Provider Internal Medicine Gastroenterology
DX: D50.0 Iron deficiency anemia secondary to blood loss (chronic) (principal); R19.7 Diarrhea, unspecified; N18.9 Chronic kidney disease, unspecified; I73.9 Peripheral vascular disease, unspecified; I65.29 Occlusion and stenosis of unspecified carotid artery; I10 Essential (primary) hypertension; Z86.73 Personal history of transient ischemic attack (TIA), and cerebral infarction without residual deficits; Z98.890 Other specified postprocedural states
CPT/HCPCS: 36415; 82728; 85025; 99212

== ENCOUNTER 2020-10-08 09:20 | Outpatient (REF) | payer MEDICARE, SELFPAY | END 2020-10-08 09:21 | disposition home or self-care (01) | LOC: HO.MDS 09:20 | PROVIDERS: PCP Internal Medicine; Visit Provider Internal Medicine Gastroenterology | DX: D50.9 Iron deficiency anemia, unspecified (principal) | CPT/HCPCS: 96365; J2916 ==

== ENCOUNTER 2020-10-13 12:45 | Outpatient (REF) | payer MEDICARE, SELFPAY | END 2020-10-13 12:46 | disposition home or self-care (01) | LOC: HO.MDS 12:45 | PROVIDERS: PCP Internal Medicine; Visit Provider Internal Medicine Gastroenterology | DX: D50.9 Iron deficiency anemia, unspecified (principal) | CPT/HCPCS: 96365 ==

== ENCOUNTER 2020-10-21 11:08 | Outpatient (REF) | payer MEDICARE, SELFPAY | END 2020-10-21 11:09 | disposition home or self-care (01) | LOC: HO.MDS 11:08 | PROVIDERS: PCP Internal Medicine; Visit Provider Internal Medicine Gastroenterology | DX: D50.9 Iron deficiency anemia, unspecified (principal) | CPT/HCPCS: 96365; J2916 ==

== ENCOUNTER 2021-01-04 10:13 | Outpatient (REF) | payer MEDICARE, SELFPAY ==
[2021-01-04 11:41] LABS: Iron 57 mcg/dL (45-160); Percent Iron Saturation 14 % (15-50); Total Iron Binding Capacity 416 mcg/dL (228-428); Unsaturated Iron Binding 359 ug/dL
== END 2021-01-04 10:14 | disposition home or self-care (01) ==
LOC: HO.LAB 10:13
PROVIDERS: PCP Internal Medicine; Visit Provider Internal Medicine Gastroenterology
DX: Z13.89 Encounter for screening for other disorder (principal)
CPT/HCPCS: 36415; 83540

== ENCOUNTER → 2021-01-07 09:22 | Outpatient (BNVA) | payer MEDICARE, SELFPAY | PROVIDERS: PCP Internal Medicine; Visit Provider Internal Medicine Gastroenterology | DX: D50.0 Iron deficiency anemia secondary to blood loss (chronic) (principal) | CPT/HCPCS: 99212 ==

== ENCOUNTER 2021-04-14 10:19 | Inpatient (IN) | payer MEDICARE, SELFPAY ==
[2021-04-14] VITALS (8 sets, daily range): BP systolic 127–188; BP diastolic 55–80; PULSE 63–84; RESP 18–21; TEMP 36.9–38.7; O2SAT 95–97; BMI 33.0
--- NOTE | ~2021-04-14 | XR_ITS ---
EXAMINATION: XR CHEST CLINICAL INFORMATION: Weakness COMPARISON: None TECHNIQUE: Frontal view of the chest was obtained. FINDINGS: The lungs are well-expanded and clear. The heart size and pulmonary vascularity is normal. There are median sternotomy sutures and mediastinal jamia from previous intervention. No gross bony abnormality seen. XR/XR chest 1V IMPRESSION: No acute cardiopulmonary process seen in chest.
--- NOTE | ~2021-04-14 | XR_ITS ---
EXAMINATION: XR CHEST CLINICAL INFORMATION: Shortness of breath COMPARISON: Previous chest x-ray most recent 04/14/2021 TECHNIQUE: Frontal view of the chest was obtained. FINDINGS: The cardiac silhouette is slightly enlarged but stable. There are post-CABG changes. Hilar and mediastinal contours are unremarkable. There is question of increased bronchial markings or bronchial wall thickening seen at the lung bases. The lungs are otherwise clear. There is no pleural effusion or pneumothorax. There are no median sternotomy wires. Upper sternotomy wires appear broken. There are degenerative changes of the spine. XR/XR chest 1V IMPRESSION: Question bronchial wall thickening at the lung bases.
--- NOTE | ~2021-04-14 | CT_ITS ---
EXAMINATION: CT ABDOMEN AND PELVIS WITHOUT CONTRAST CLINICAL INFORMATION: Right flank pain COMPARISON: CT abdomen and pelvis noncontrast 04/23/2020. TECHNIQUE: Multidetector volumetric imaging was performed from the superior aspect of the liver through the pubic symphysis. No oral or intravenous contrast. Sagittal and coronal reformatted images were obtained on the technologist's workstation. This CT examination was performed using dose optimization techniques as appropriate, variously including the following: *Automated exposure control *Adjustment of mA and/or kV according to patient size (this includes techniques or standardized protocols for targeted exams where dose is matched to indication/reason for exam; i.e. extremities or head) *Use of iterative reconstruction technique DLP: 783 mGy-cm FINDINGS: LUNG BASES: The visualized lung bases are unremarkable. LIVER, GALLBLADDER, AND BILIARY TREE: Liver is smooth in contour and homogeneous in within upper limits of normal size similar to prior exam. There is no intrahepatic biliary ductal dilatation. Gallbladder again shows calcified stones. No gallbladder dilatation or wall thickening or pericholecystic inflammatory changes. Common duct unremarkable. PANCREAS: Unremarkable. SPLEEN: Unremarkable. ADRENAL GLANDS: Unremarkable. KIDNEYS AND URETERS: The kidneys are normal in size and attenuation. There are small bilateral parapelvic cysts in the renal sinus. The bilateral renal infundibula appear normal in size and there is no hydronephrosis or hydroureter. No visible urinary tract calculi. Again, there are accentuated thickened septations within the perinephric space is similar to prior exam. No perinephric fluid collection. Small cyst posterior lateral lower pole right kidney under 2 cm is stable. No additional imaging follow-up required for the bilateral parapelvic cysts or right renal cysts. BLADDER: Unremarkable. GASTROINTESTINAL TRACT: No bowel obstruction or focal inflammatory changes in the bowel or mesentery. Normal appendix. No ascites or fluid collection. No pneumatosis or free air. ABDOMINAL WALL: No significant hernia is appreciated. LYMPH NODES: There are stable nodes megan hepatis and portacaval space similar to prior CT 2020. No interval mesenteric adenopathy. No retroperitoneal or pelvic adenopathy. VASCULAR: Unremarkable. PELVIC VISCERA: Unremarkable. OSSEOUS STRUCTURES: No acute bony abnormality. Left L5 spondylolysis again noted. No spondylolisthesis. CT/CT abdomen pelvis wo con IMPRESSION: 1. Cholelithiasis. No gallbladder wall thickening or ductal dilatation. 2. No urinary tract calculi or hydronephrosis. 3. No bowel obstruction or focal inflammatory changes. Normal appendix.
--- NOTE | 2021-04-14 10:22 | ED.WEAKNESS ---
HPI - Weakness General Chief complaint: General Medical Stated complaint: DIZZINESS,WEAKNESS Time Seen by Provider: 04/14/21 10:21 Source: patient Mode of arrival: EMS Limitations: no limitations History of Present Illness MD Complaint: generalized weakness (chills) and lack of energy Onset (ago): day(s) (2) Duration: progressively worsening Location: generalized Migration: none Severity: moderate Quality: aching and dull Relieving factors: rest Exacerbating factors: none Context: history of similar (happens when he has anemia or DOMENICO) Associated symptoms: fever/chills, loss of appetite and other (weakness) Related Data Home Medications Medication Instructions Recorded Confirmed amlodipine 10 mg tablet 1 tab PO DAILY 04/22/20 04/14/21 atorvastatin 40 mg tablet 1 tab PO BEDTIME 04/22/20 04/14/21 clopidogrel 75 mg tablet 1 tab PO DAILY 04/22/20 04/14/21 insulin glargine 100 unit/mL 70 unit SUBCUT BID 04/22/20 04/14/21 subcutaneous solution (Lantus U-100 Insulin) insulin lispro 100 unit/mL 30 unit SUBCUT TID 04/22/20 04/14/21 subcutaneous solution metoprolol succinate 200 mg 100 mg PO BID 04/22/20 04/14/21 tablet,extended release 24 hr olmesartan 40 mg tablet 1 tab PO DAILY 04/22/20 04/14/21 spironolactone 25 1 tab PO DAILY 04/22/20 04/14/21 mg-hydrochlorothiazide 25 mg tablet aspirin 81 mg tablet,delayed 81 mg PO DAILY 05/19/20 04/14/21 release (Adult Low Dose Aspirin) gemfibrozil 600 mg tablet 600 mg PO BID 05/19/20 04/14/21 hydralazine 100 mg tablet 100 mg PO BID tab 05/19/20 04/14/21 omeprazole 20 mg capsule,delayed 1 cap PO DAILY 05/24/20 04/14/21 release insulin syringe-needle U-100 1 mL #10 ea 09/21/20 28 gauge x 1/2 docosahexaenoic acid (dha)-epa 1 cap PO DAILY 04/14/21 04/14/21 capsule Allergies Allergy/AdvReac Type Severity Reaction Status Date / Time No Known Allergies Allergy Verified 01/07/21 09:26 [No Known Allergies*] Review of Systems Review of Systems: Constitutional : No Weight loss, No Fever, pos Chills, pos Fatigue, pos Malaise ENT/Mouth : No sore throat, No Rhinorrhea Eyes: No Eye Pain, No Swelling, No Redness Cardiovascular : No Chest Pain, No SOB, No Dyspnea on Exertion, No Orthopnea, No Edema, No Palpitations Respiratory : No Cough, No Sputum, No Wheezing Gastrointestinal : No Nausea, No Vomiting, No Diarrhea, No Constipation, No abdominal Pain, No Hematochezia, No Melena Genitourinary : No Dysuria, No Urinary Frequency, No Hematuria, Musculoskeletal : No joint pain, No Myalgias, No Joint Swelling Skin : No Skin Lesions, No rash Neuro : pos Weakness, No Numbness, No Dizziness, No Headache Psych : No Anxiety/Panic, No Depression Heme/Lymph: No Bruising, No Bleeding,No Lymphadenopathy Endocrine : No Polyuria, No Polydipsia All other systems reviewed and are negative PMFSH Past Medical History Attestation statement: The following information was validated with the patient. 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 CAD (coronary artery disease) Chronic kidney disease, stage 3 CVA (cerebral vascular accident) Diabetes H/O cataract Hepatitis C High cholesterol HTN (hypertension) Hyperlipidemia Peripheral vascular disease Surgical History History of ankle surgery History of esophagogastroduodenoscopy (EGD) Hx of colonoscopy S/P CABG (coronary artery bypass graft) (~2006) S/P carotid endarterectomy (~08/2018) Family History Family History Other CAD (coronary artery disease) Social History Social History (Updated 04/14/21 @ 11:26 by Joyce Coombs DO) Household Members: Spouse Housing: House Do you presently have visiting nurse or other home services: No Alcohol intake: never Patient Tobacco Use Status: Never used Tobacco Substance Use Type: Marijuana Advance Directives: Yes Advance Directives Information Provided: No Advance Directives on File: No service: No Current occupational status: retired Physical Exam Vital Signs: Vital Signs: Last Vital Signs Temp 99.0 F 04/14/21 10:31 Pulse 64 04/14/21 14:08 Resp 18 04/14/21 14:08 BP 137/57 L 04/14/21 14:08 Pulse Ox 97 04/14/21 14:08 BMI result Body Mass Index 33.0 Appearance: Alert. Oriented X3. No acute distress. Eyes: Pupils equal, round and reactive to light. ENT: Pharynx normal. Neck: Normal inspection. Neck supple. CVS: Normal heart rate and rhythm. Pulses normal. Respiratory: No respiratory distress. Breath sounds normal. Abdomen: Soft and nontender. Skin: Skin warm and dry. Normal skin color. Normal skin turgor. Extremities: No lower extremity edema. No calf ttp Neuro: Oriented X 3. No motor deficit. No sensory deficit. Course Course Course Narrative: negative orthostatics at this time no improvement in Cr 630 bladder scan mayo ordered, not able to void does want to attempt again admit to hospitalist MDM - Weakness MDM Narrative Medical decision making narrative: 76 yo male with hx of chronic anemia, DOMENICO, PVD, CAD s/p CABG here with c/o feeling weak with chills last time this happened he was in [place] and anemic requiring blood transfusion he denies cough, dysuria, has mild R flank pain - at this time labs, CXR, UA, CT scan for renal colic ordered, IVF, dispo per results and findings. He missed his [facility] appointment today for L parotid mass due to ride issues Lab Data Result diagrams: 04/14/21 12:24 04/14/21 14:41 Labs: Lab Results 04/14/21 04/14/21 04/14/21 Range/Units 12:24 12:24 12:24 WBC 8.0 (4.8-10.8) X10*3/uL RBC 3.68 L (4.60-5.80) X10*6/uL Hgb 10.9 L (14.0-18.0) g/dl Hct 34.0 L (42.0-52.0) % MCV 92.4 (80.0-98.0) fL MCH 29.6 (27.0-33.0) pg MCHC 32.1 (31.0-36.0) g/dl RDW 13.9 (11.0-16.0) % Plt Count 241 (160-400) X10*3/uL MPV 9.8 (9.4-12.4) fL Immature Gran % (Auto) 1.1 H (0.0-0.4) % Neut % (Auto) 82.2 H (45-73) % Lymph % (Auto) 6.5 L (20-40) % [place] % (Auto) 9.7 (2-11) % Eos % (Auto) 0.1 (0-4) % Baso % (Auto) 0.4 (0-2) % Lymph # (Auto) 0.5 L (1.2-4.9) X10*3/uL [place] # (Auto) 0.8 (0.1-1.2) X10*3/uL Eos # (Auto) 0.0 (0.0-0.4) X10*3/uL Baso # (Auto) 0.0 (0.0-0.2) X10*3/uL Abs Immat Gran (auto) 0.09 H (0.00-0.03) X10*3/uL Absolute Neuts (auto) 6.6 (2.0-8.3) x10*3/uL Absolute Nucleated RBC 0.000 (0.0-0.012) X10*3/uL Nucleated RBC % (auto) 0.0 (0.0-0.2) /100WBC Sodium 134 L (135-145) mmol/L Potassium 4.6 (3.3-5.1) mmol/L Chloride 105 (96-108) mmol/L Carbon Dioxide 21 L (22-29) mmol/L Anion Gap 13 (12-20) BUN 27 H (9-16) mg/dL Creatinine 1.79 H (0.5-1.4) mg/dL Estim Creat Clear Calc 42.4 Estimated GFR 37 Random Glucose 118 H D (60-115) mg/dL Lactic Acid (0.5-2.0) mmol/L Calcium 9.4 (8.4-10.2) mg/dL Magnesium 2.0 (1.6-2.6) mg/dL Total Bilirubin 0.5 (0.0-1.0) mg/dL Direct Bilirubin 0.3 (0.0-0.5) mg/dL AST 29 (5-37) U/L ALT 20 (0-40) U/L Alkaline Phosphatase 140 H (39-117) U/L Troponin I High Sens (<3.5-35.0) ng/L B-Natriuretic Peptide 237 H (<100) pg/mL Total Protein 7.0 (6.5-8.0) g/dL Albumin 4.3 (3.5-5.0) g/dL Lipase 41 (8-78) U/L COVID-19 (NEL) (Negative) COVID-19 Clin Com 04/14/21 04/14/21 04/14/21 Range/Units 12:24 12:24 12:24 WBC (4.8-10.8) X10*3/uL RBC (4.60-5.80) X10*6/uL Hgb (14.0-18.0) g/dl Hct (42.0-52.0) % MCV (80.0-98.0) fL MCH (27.0-33.0) pg MCHC (31.0-36.0) g/dl RDW (11.0-16.0) % Plt Count (160-400) X10*3/uL MPV (9.4-12.4) fL Immature Gran % (Auto) (0.0-0.4) % Neut % (Auto) (45-73) % Lymph % (Auto) (20-40) % [place] % (Auto) (2-11) % Eos % (Auto) (0-4) % Baso % (Auto) (0-2) % Lymph # (Auto) (1.2-4.9) X10*3/uL [place] # (Auto) (0.1-1.2) X10*3/uL Eos # (Auto) (0.0-0.4) X10*3/uL Baso # (Auto) (0.0-0.2) X10*3/uL Abs Immat Gran (auto) (0.00-0.03) X10*3/uL Absolute Neuts (auto) (2.0-8.3) x10*3/uL Absolute Nucleated RBC (0.0-0.012) X10*3/uL Nucleated RBC % (auto) (0.0-0.2) /100WBC Sodium (135-145) mmol/L Potassium (3.3-5.1) mmol/L Chloride (96-108) mmol/L Carbon Dioxide (22-29) mmol/L Anion Gap (12-20) BUN (9-16) mg/dL Creatinine (0.5-1.4) mg/dL Estim Creat Clear Calc Estimated GFR Random Glucose (60-115) mg/dL Lactic Acid 0.6 (0.5-2.0) mmol/L Calcium (8.4-10.2) mg/dL Magnesium (1.6-2.6) mg/dL Total Bilirubin (0.0-1.0) mg/dL Direct Bilirubin (0.0-0.5) mg/dL AST (5-37) U/L ALT (0-40) U/L Alkaline Phosphatase (39-117) U/L Troponin I High Sens 12.4 (<3.5-35.0) ng/L B-Natriuretic Peptide (<100) pg/mL Total Protein (6.5-8.0) g/dL Albumin (3.5-5.0) g/dL Lipase (8-78) U/L COVID-19 (NEL) Negative (Negative) COVID-19 Clin Com See Note 04/14/21 Range/Units 14:41 WBC (4.8-10.8) X10*3/uL RBC (4.60-5.80) X10*6/uL Hgb (14.0-18.0) g/dl Hct (42.0-52.0) % MCV (80.0-98.0) fL MCH (27.0-33.0) pg MCHC (31.0-36.0) g/dl RDW (11.0-16.0) % Plt Count (160-400) X10*3/uL MPV (9.4-12.4) fL Immature Gran % (Auto) (0.0-0.4) % Neut % (Auto) (45-73) % Lymph % (Auto) (20-40) % [place] % (Auto) (2-11) % Eos % (Auto) (0-4) % Baso % (Auto) (0-2) % Lymph # (Auto) (1.2-4.9) X10*3/uL [place] # (Auto) (0.1-1.2) X10*3/uL Eos # (Auto) (0.0-0.4) X10*3/uL Baso # (Auto) (0.0-0.2) X10*3/uL Abs Immat Gran (auto) (0.00-0.03) X10*3/uL Absolute Neuts (auto) (2.0-8.3) x10*3/uL Absolute Nucleated RBC (0.0-0.012) X10*3/uL Nucleated RBC % (auto) (0.0-0.2) /100WBC Sodium (135-145) mmol/L Potassium (3.3-5.1) mmol/L Chloride (96-108) mmol/L Carbon Dioxide (22-29) mmol/L Anion Gap (12-20) BUN (9-16) mg/dL Creatinine 1.66 H (0.5-1.4) mg/dL Estim Creat Clear Calc 45.7 Estimated GFR 40 Random Glucose (60-115) mg/dL Lactic Acid (0.5-2.0) mmol/L Calcium (8.4-10.2) mg/dL Magnesium (1.6-2.6) mg/dL Total Bilirubin (0.0-1.0) mg/dL Direct Bilirubin (0.0-0.5) mg/dL AST (5-37) U/L ALT (0-40) U/L Alkaline Phosphatase (39-117) U/L Troponin I High Sens (<3.5-35.0) ng/L B-Natriuretic Peptide (<100) pg/mL Total Protein (6.5-8.0) g/dL Albumin (3.5-5.0) g/dL Lipase (8-78) U/L COVID-19 (NEL) (Negative) COVID-19 Clin Com ECG Data Attestation: I personally reviewed and interpreted this ECG as follows: ECG interpretation date: 04/14/21 ECG interpretation time: 11:31 Interpretation: Rate: 68 Rhythm: NSR [place]: normal Normal P waves. Normal SWAPNA. RBBB ST T wave : no ODALYS, nonspecific inverted t waves anterior leads , slight st elevation III with q wave noted back in mar 2020 qTC: normal prior studies: no sig change mar 2020 The study has been interpreted contemporaneously by me. . Discharge Plan Discharge Clinical Impression: [place]EN[place] (acute kidney injury), Acute urinary retention Patient Disposition: Admitted As Inpatient Prescriptions: No Action atorvastatin 40 mg tablet 1 tab PO BEDTIME RF: 0 Lantus U-100 Insulin 100 unit/mL solution 70 unit subcut BID RF: 0 spironolacton-hydrochlorothiaz 25-25 mg tablet 1 tab PO DAILY RF: 0 metoprolol succinate 200 mg tablet extended release 24 hr 100 mg PO BID RF: 0 clopidogrel 75 mg tablet 1 tab PO DAILY RF: 0 Hold Instructions: Resume on 04/24/20. amlodipine 10 mg tablet 1 tab PO DAILY RF: 0 insulin lispro 100 unit/mL solution 30 unit subcut TID RF: 0 olmesartan 40 mg tablet 1 tab PO DAILY RF: 0 hydralazine 100 mg tablet 100 mg PO BID RF: 0 gemfibrozil 600 mg tablet 600 mg PO BID RF: 0 omeprazole 20 mg capsule,delayed release(DR/EC) 1 cap PO DAILY RF: 0 Fish Oil (with DHA-EPA) Capsule 1 cap PO DAILY RF: 0 aspirin [Adult Low Dose Aspirin] 81 mg tablet,delayed release (DR/EC) 81 mg PO DAILY RF: 0 (DME) insulin syringe-needle U-100 1 mL 28 gauge x 1/2 syringe See Rx Instructions syringe .ROUTE .MEDSUPPLY Qty: 10 RF: 0
--- NOTE | 2021-04-14 10:44 | ECG_ITS ---
Test Reason : WEAKNESS Blood Pressure : / mmHG Vent. Rate : 068 BPM Atrial Rate : 068 BPM P-R Int : 168 ms QRS Dur : 148 ms QT Int : 404 ms P-R-T Axes : 051 051 065 degrees QTc Int : 429 ms Normal sinus rhythm Right bundle branch block Abnormal ECG When compared with ECG of 22-APR-2020 13:14, No significant change was found Referred By: Joyce Coombs Electronically Signed By:LD BRYAN MD
--- NOTE | 2021-04-14 11:33 | PHA.MEDREC ---
Pharmacy Consult ? Medication Reconciliation Pharmacy has completed the medication reconciliation. Dana FonsecaD BCPS
--- NOTE | 2021-04-14 12:08 | MHC.CM.ED ---
Patient came to ER due to weakness. Work up is still pending. Per Dr Coombs, patient is supposed to have an appointment with a specialist in the [place] area for left parotid gland mass. Patient and don't have transportation to that appointment. T/W reached out to patient's PCP office to see who the specialist is. Waiting for return telephone call. Continue to monitor for d/c needs.
[2021-04-14] MEDS: Acetaminophen 325 MG TABLET 650 MG PO ×2 (12:31→22:15)
[2021-04-14 12:32] LABS: MANUAL DIFF FLAG NO
[2021-04-14] MEDS: 0.9 % Sodium Chloride 1,000 ML 999 ML IVCONT (12:32)
[2021-04-14 12:33] LABS: Basophils Percent Auto 0.4 % (0-2); Eosinophils Percent Auto 0.1 % (0-4); Hemoglobin 10.9 g/dl (14.0-18.0); Imm Gran Abs Auto 0.09 X10*3/uL (0.00-0.03); Imm Gran Pct Auto 1.1 % (0.0-0.4); Lymphocytes Absolute Auto 0.5 X10*3/uL (1.2-4.9); Lymphocytes Percent Auto 6.5 % (20-40); Mean Corpuscular HGB Conc 32.1 g/dl (31.0-36.0); Mean Corpuscular Hemoglobin 29.6 pg (27.0-33.0); Mean Corpuscular Volume 92.4 fL (80.0-98.0); Mean Platelet Volume 9.8 fL (9.4-12.4); Monocytes Absolute Auto 0.8 X10*3/uL (0.1-1.2); Monocytes Percent Auto 9.7 % (2-11); Neutrophils Absolute Auto 6.6 x10*3/uL (2.0-8.3); Neutrophils Percent Auto 82.2 % (45-73); Platelet Count 241 X10*3/uL (160-400); Red Blood Count 3.68 X10*6/uL (4.60-5.80); Red Cell Distribution Width 13.9 % (11.0-16.0)
[2021-04-14 12:42] LABS: Lactic Acid 0.6 mmol/L (0.5-2.0)
[2021-04-14 12:49] LABS: Alanine Aminotransferase 20 U/L (0-40); Albumin Level 4.3 g/dL (3.5-5.0); Alkaline Phosphatase 140 U/L (39-117); Anion Gap 13 (12-20); Aspartate Amino Transferase 29 U/L (5-37); Bilirubin Direct 0.3 mg/dL (0.0-0.5); Bilirubin Total 0.5 mg/dL (0.0-1.0); Blood Urea Nitrogen 27 mg/dL (9-16); Calcium 9.4 mg/dL (8.4-10.2); Carbon Dioxide 21 mmol/L (22-29); Chloride 105 mmol/L (96-108); Creatinine Clr Calc Pharmacy 42.4; Estimated Glomerular Filt Rate 37; Glucose Random 118 mg/dL (60-115); Lipase 41 U/L (8-78); Potassium 4.6 mmol/L (3.3-5.1); Sodium 134 mmol/L (135-145)
[2021-04-14 12:52] LABS: B Type Natriuretic Peptide 237 pg/mL (<100)
[2021-04-14 12:53] LABS: Troponin-I High Sensitivity 12.4 ng/L (<3.5-35.0)
[2021-04-14 12:57] LABS: COVID-19 Test Negative (Negative)
[2021-04-14] MEDS: 0.9 % Sodium Chloride 1,000 ML 999 ML IV (14:42)
[2021-04-14 15:04] LABS: Creatinine Clr Calc Pharmacy 45.7; Estimated Glomerular Filt Rate 40
[2021-04-14 15:56] LABS: Appearance Urine CLEAR; Color Urine YELLOW; Glucose Urine UA NEG (NEG); Leukocyte Esterase Urine NEG (NEG); Nitrite Urine NEG (NEG); PH 5.5 (5.0-8.0); UACC Culture Trigger NO; Urine Blood TRACE (NEG); Urine Ketones NEG (NEG); Urine Protein 2+ MG/DL (NEG-TRACE)
[2021-04-14 16:10] LABS: Bacteria Urine 1+ /LPF; Squamous Epithelial Cell Urine 1+ /LPF; WBC Urine 0 /HPF (0-4)
--- NOTE | 2021-04-14 16:31 | P.HPHOSP_ITS ---
History of Present Illness Date of Service: 04/14/21 <LIZBETH Sanchez - Last Filed: 04/14/21 16:58> Attending physician on admission: Maureen Peña <LIZBETH Sanchez - Last Filed: 04/14/21 16:58> Chief Complaint: weakness, chills <LIZBETH Sanchez - Last Filed: 04/14/21 16:58> This is a 76 year old male who presents to the ED with complaints of weakness and chills. For two days he reports feeling generally weak and having chills, he has not had a fever. Today he was feeling lightheaded so he came to the ED. He denies any other associated symptoms including chest pain, shortness of breath cough, abdominal pain, nausea, vomiting, recent sick contacts. He has a history of intermittent diarrhea that he sees Dr. Chavez for but has not been having diarrhea today. He denies any recent changes in medications. His a ppetite has been at baseline. Workup today was significant for DOMENICO with a creatinine of 1.79. CT scan of the abdomen showed no obstruction or acute pathology. Urinalysis showed no evidence of infection. he was treated with IV fluid and lightheadedness resolved but his creatinine was still elevated on repeat BMP. For this reason, the decision was made to admit him to the hospital for management of DOMENICO. <LIZBETH Sanchez - Last Filed: 04/14/21 16:58> Review of Systems Review of Systems: Yes all other systems are reviewed and are negative <LIZBETH Sanchez Last Filed: 04/14/21 16:58> Constitutional: Constitutional: Denies body ache(s), Reports chills, Denies fever(s), Denies headache(s) and Reports weakness <LIZBETH Sanchez Last Filed: 04/14/21 16:58> ENT: Denies headache(s) <LIZBETH Sanchez Last Filed: 04/14/21 16:58> Cardiovascular: Cardiovascular: Denies chest pain and Denies dyspnea <LIZBETH Sanchez Last Filed: 04/14/21 16:58> Respiratory: Respiratory: Denies cough and Denies dyspnea <LIZBETH Sanchez - Last Filed: 04/14/21 16:58> Gastrointestinal: Gastrointestinal: Denies abdominal pain, Denies diarrhea, Denies nausea and Denies vomiting <LIZBETH Sanchez - Last Filed: 04/14/21 16:58> Genitourinary: Genitourinary: Denies dysuria and Denies flank pain <LIZBETH Sanchez - Last Filed: 04/14/21 16:58> Neurologic: Denies headache(s) and Reports weakness <LIZBETH Sanchez - Last Filed: 04/14/21 16:58> [facility] Medical History: 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 CAD (coronary artery disease) Chronic kidney disease, stage 3 CVA (cerebral vascular accident) Diabetes H/O cataract Hepatitis C High cholesterol HTN (hypertension) Hyperlipidemia Peripheral vascular disease <LIZBETH Sanchez - Last Filed: 04/14/21 16:58> Family History: Family History Other CAD (coronary artery disease) <LIZBETH Sanchez - Last Filed: 04/14/21 16:58> Pertinent family history: diabetes runs in the family <LIZBETH Sanchez - Last Filed: 04/14/21 16:58> Surgical History: Surgical History History of ankle surgery History of esophagogastroduodenoscopy (EGD) Hx of colonoscopy S/P CABG (coronary artery bypass graft) (~2006) S/P carotid endarterectomy (~08/2018) <LIZBETH Sanchez - Last Filed: 04/14/21 16:58> Social History: Social History (Updated 04/14/21 @ 11:26 by Joyce Coombs DO) Household Members: Spouse Housing: House Do you presently have visiting nurse or other home services: No Alcohol intake: never Patient Tobacco Use Status: Never used Tobacco Substance Use Type: Marijuana Advance Directives: Yes Advance Directives Information Provided: No Advance Directives on File: No service: No Current occupational status: retired <LIZBETH Sanchez - Last Filed: 04/14/21 16:58> Meds Allergies/Adverse reactions: Allergies Allergy/AdvReac Type Severity Reaction Status Date / Time No Known Allergies Allergy Verified 01/07/21 09:26 [No Known Allergies*] <LIZBETH Sanchez - Last Filed: 04/14/21 16:58> Active Medications: Current Medications Acetaminophen (Acetaminophen 325 Mg Tablet) 650 mg PO Q6H PRN PRN Reason: Pain, Mild (Pain Scale 1-3) Amlodipine Besylate (Amlodipine Besylate 10 Mg Tablet) 10 mg PO DAILY [facility]; Protocol Aspirin (Aspirin Enteric Coated 81 Mg Tablet.) 81 mg PO DAILY [facility] Atorvastatin Calcium (Atorvastatin Calcium 40 Mg Tablet) 40 mg PO BEDTIME KEIKO Clopidogrel Bisulfate (Clopidogrel Bisulfate 75 Mg Tablet) 75 mg PO DAILY [facility] Dextrose (Dextrose 50 % 25 Gm/50 Ml Vial) 25 gm IVPUSH Q15M PRN; Protocol PRN Reason: per Hypoglycemia Standing Ord. Docusate Sodium (Docusate Sodium 100 Mg Capsule) 100 mg PO DAILY PRN PRN Reason: Constipation Gemfibrozil (Gemfibrozil 600 Mg Tablet) 600 mg PO BID [facility] Glucose (Glucose Gel 15 Gm Gel..Gram.) 15 gm PO Q15M PRN; Protocol PRN Reason: per Hypoglycemia Standing Ord. Heparin Sodium (Porcine) (Heparin Sodium,Porcine 5,000 Unit/Ml Vial) 5,000 unit SUBCUT Q12H [facility] Hydralazine HCl (Hydralazine Hcl 50 Mg Tablet) 100 mg PO BID [facility]; Protocol Insulin Human Lispro (Insulin Lispro 100 Unit/Ml 3 Ml Vial) 0 unit SUBCUT QIDACHS [facility]; Protocol Metoprolol Succinate (Metoprolol Succinate Er 100 Mg Tab.Er.24h) 100 mg PO BID [facility]; Protocol Omeprazole (Omeprazole 20 Mg Capsule.) 20 mg PO DAILY@0630 [facility] Ondansetron HCl (Ondansetron Hcl 4 Mg/2 Ml Vial) 4 mg IVPUSH Q8H PRN PRN Reason: Nausea and Vomiting Pharmacy Consult (Consult Rx Perform Med Rec) 1 each MISCELLANE ONCE PRN PRN Reason: Consult order Sodium Chloride (0.9 % Sodium Chloride Flush 3 Ml Syringe) 3 ml IVFLUSH QSHIFT KEIKO <LIZBETH Sanchez - Last Filed: 04/14/21 16:58> Home medications: Home Medications Medication Instructions Recorded Confirmed Last Taken Type amlodipine 10 mg tablet 1 tab PO DAILY 04/22/20 04/14/21 04/14/21 History atorvastatin 40 mg tablet 1 tab PO BEDTIME 04/22/20 04/14/21 04/14/21 History clopidogrel 75 mg tablet 1 tab PO DAILY 04/22/20 04/14/21 04/14/21 History insulin glargine 100 unit/mL 70 unit SUBCUT BID 04/22/20 04/14/21 04/14/21 History subcutaneous solution (Lantus U-100 Insulin) insulin lispro 100 unit/mL 30 unit SUBCUT TID 04/22/20 04/14/21 04/14/21 History subcutaneous solution metoprolol succinate 200 mg 100 mg PO BID 04/22/20 04/14/21 04/14/21 History tablet,extended release 24 hr olmesartan 40 mg tablet 1 tab PO DAILY 04/22/20 04/14/21 04/14/21 History spironolactone 25 1 tab PO DAILY 04/22/20 04/14/21 04/14/21 History mg-hydrochlorothiazide 25 mg tablet aspirin 81 mg tablet,delayed 81 mg PO DAILY 05/19/20 04/14/21 04/14/21 History release (Adult Low Dose Aspirin) gemfibrozil 600 mg tablet 600 mg PO BID 05/19/20 04/14/21 04/14/21 History hydralazine 100 mg tablet 100 mg PO BID tab 05/19/20 04/14/21 04/14/21 History omeprazole 20 mg capsule,delayed 1 cap PO DAILY 05/24/20 04/14/21 04/14/21 History release insulin syringe-needle U-100 1 mL #10 ea 09/21/20 Unknown History 28 gauge x 1/2 docosahexaenoic acid (dha)-epa 1 cap PO DAILY 04/14/21 04/14/21 04/14/21 History capsule <LIZBETH Sanchez - Last Filed: 04/14/21 16:58> Physical Exam Vital Signs and Narrative: Vital Signs: Last Vital Signs Temp 99.0 F 04/14/21 10:31 Pulse 64 04/14/21 14:08 Resp 18 04/14/21 14:08 BP 137/57 L 04/14/21 14:08 Pulse Ox 97 04/14/21 14:08 BMI result Body Mass Index 33.0 <LIZBETH Sanchez - Last Filed: 04/14/21 16:58> Const: General: cooperative, comfortable, no acute distress, alert and awake <LIZBETH Sanchez - Last Filed: 04/14/21 16:58> Nutritional Appearance: overweight <LIZBETH Sanchez - Last Filed: 04/14/21 16:58> Orientation/consciousness: patient oriented x3 <LIZBETH Sanchez - Last Filed: 04/14/21 16:58> HENMT: Head: Yes normocephalic and Yes atraumatic <LIZBETH Sanchez - Last Filed: 04/14/21 16:58> Eyes: Sclerae: sclerae normal <LIZBETH Sanchez - Last Filed: 04/14/21 16:58> Pupils: Equal, round and reactive pupils present <LIZBETH Sanchez - Last Filed: 04/14/21 16:58> Resp: Effort & Inspection: normal respiratory effort and no respiratory distress <LIZBETH Sanchez - Last Filed: 04/14/21 16:58> Cardio: Rate: regular rate <LIZBETH Sanchez - Last Filed: 04/14/21 16:58> Rhythm: regular rhythm <LIZBETH Sanchez - Last Filed: 04/14/21 16:58> GI: Inspection: No distended <LIZBETH Sanchez - Last Filed: 04/14/21 16:58> Palpation (GI): Soft to palpation and nontender <LIZBETH Sanchez - Last Filed: 04/14/21 16:58> : Other: mayo draining clear yellow urine <LIZBETH Sanchez - Last Filed: 04/14/21 16:58> General: No no CVA tenderness <LIZBETH Sanchez - Last Filed: 04/14/21 16:58> Back/Spine/Pelvis: Back: No no CVA tenderness <LIZBETH Sanchez - Last Filed: 04/14/21 16:58> Neuro: General: patient oriented x3 <LIZBETH Sanchez - Last Filed: 04/14/21 16:58> Cranial nerves: Yes CN's II-XII intact bilaterally, Yes Equal, round and reactive pupils present and Yes Bilaterally intact EOM present <LIZBETH Sanchez - Last Filed: 04/14/21 16:58> Extrem: Other: no leg edema; able to move all 4 extremities spontaneously <LIZBETH Sanchez - Last Filed: 04/14/21 16:58> Results Labs CBC and Chem 7: : 04/15/21 07:19 04/15/21 07:19 <LIZBETH Sanchez - Last Filed: 04/14/21 16:58> Labs: Laboratory Results - last 24 hr 04/14/21 04/14/21 04/14/21 12:24 12:24 12:24 MCV 92.4 MCH 29.6 MCHC 32.1 RDW 13.9 Plt Count 241 MPV 9.8 Immature Gran % (Auto) 1.1 H Neut % (Auto) 82.2 H Lymph % (Auto) 6.5 L [place] % (Auto) 9.7 Eos % (Auto) 0.1 Baso % (Auto) 0.4 Lymph # (Auto) 0.5 L [place] # (Auto) 0.8 Eos # (Auto) 0.0 Baso # (Auto) 0.0 Abs Immat Gran (auto) 0.09 H Absolute Neuts (auto) 6.6 Absolute Nucleated RBC 0.000 Nucleated RBC % (auto) 0.0 Anion Gap 13 Estim Creat Clear Calc 42.4 Estimated GFR 37 Random Glucose 118 H D Lactic Acid Calcium 9.4 Magnesium 2.0 Total Bilirubin 0.5 Direct Bilirubin 0.3 AST 29 ALT 20 Alkaline Phosphatase 140 H Troponin I High Sens B-Natriuretic Peptide 237 H Total Protein 7.0 Albumin 4.3 Lipase 41 Urine Color Urine Appearance Urine pH Ur Specific [place] Urine Protein Urine Glucose (UA) Urine Ketones Urine Blood Urine Nitrite Ur Leukocyte Esterase Urine RBC Urine WBC Ur Squamous Epith Cells Urine Bacteria COVID-19 (NEL) COVID-19 Clin Com 04/14/21 04/14/21 04/14/21 12:24 12:24 12:24 MCV MCH MCHC RDW Plt Count MPV Immature Gran % (Auto) Neut % (Auto) Lymph % (Auto) [place] % (Auto) Eos % (Auto) Baso % (Auto) Lymph # (Auto) [place] # (Auto) Eos # (Auto) Baso # (Auto) Abs Immat Gran (auto) Absolute Neuts (auto) Absolute Nucleated RBC Nucleated RBC % (auto) Anion Gap Estim Creat Clear Calc Estimated GFR Random Glucose Lactic Acid 0.6 Calcium Magnesium Total Bilirubin Direct Bilirubin AST ALT Alkaline Phosphatase Troponin I High Sens 12.4 B-Natriuretic Peptide Total Protein Albumin Lipase Urine Color Urine Appearance Urine pH Ur Specific [place] Urine Protein Urine Glucose (UA) Urine Ketones Urine Blood Urine Nitrite Ur Leukocyte Esterase Urine RBC Urine WBC Ur Squamous Epith Cells Urine Bacteria COVID-19 (NEL) Negative COVID-19 Clin Com See Note 04/14/21 04/14/21 14:41 15:45 MCV MCH MCHC RDW Plt Count MPV Immature Gran % (Auto) Neut % (Auto) Lymph % (Auto) [place] % (Auto) Eos % (Auto) Baso % (Auto) Lymph # (Auto) [place] # (Auto) Eos # (Auto) Baso # (Auto) Abs Immat Gran (auto) Absolute Neuts (auto) Absolute Nucleated RBC Nucleated RBC % (auto) Anion Gap Estim Creat Clear Calc 45.7 Estimated GFR 40 Random Glucose Lactic Acid Calcium Magnesium Total Bilirubin Direct Bilirubin AST ALT Alkaline Phosphatase Troponin I High Sens B-Natriuretic Peptide Total Protein Albumin Lipase Urine Color YELLOW Urine Appearance CLEAR Urine pH 5.5 Ur Specific [place] 1.020 Urine Protein 2+ H Urine Glucose (UA) NEG Urine Ketones NEG Urine Blood TRACE Urine Nitrite NEG Ur Leukocyte Esterase NEG Urine RBC 15-29 H Urine WBC 0 Ur Squamous Epith Cells 1+ Urine Bacteria 1+ COVID-19 (NEL) COVID-19 Clin Com <LIZBETH Sanchez - Last Filed: 04/14/21 16:58> Imaging Radiologist's Impressions: Impressions Abdomen/Pelvis CT 04/14/21 11:06 IMPRESSION: 1. Cholelithiasis. No gallbladder wall thickening or ductal dilatation. 2. No urinary tract calculi or hydronephrosis. 3. No bowel obstruction or focal inflammatory changes. Normal appendix. Chest X-Ray 04/14/21 11:07 IMPRESSION: No acute cardiopulmonary process seen in chest. <LIZBETH Sanchez - Last Filed: 04/14/21 16:58> Assessment and Plan (1) DOMENICO (acute kidney injury): Status: Acute <LIZBETH Sanchez - Last Filed: 04/14/21 16:58> this is a 76 year old male with history of DM, CAD s/p CABG, carotid stenosis s/p left CEA, HTN, HLD, CKD3, PVD among others who presents to the ED with two days of chills and feeling lightheaded found to have DOMENICO DOMENICO on CKD3 no obstruction on CT hold Aldactone, HCTZ, olmesartan gentle IVF follow BMP urinary retention mayo placed in ED voiding trial in am outpatient FU with urology DM reports episodes of hypoglycemia, has been taking his Lantus daily instead of bid and decreasing dose of lispro last HbA1c reportedly 6.2 will continue Lantus daily, up titrate as needed SSI, POCs, ADA diet HTN continue hydralazine, norvasc and metoprolol hold aldactone, HCTZ, olmesartan for DOMENICO monitor BP closely CAD continue asa/plavix, statin, BB HLD continue lopid, statin gerd continue omeprazole code status - full code dvt ppx - heparin attending - dr. peña <LIZBETH Sanchez - Last Filed: 04/14/21 16:58> Quality Stroke Does the patient have a stroke diagnosis?: No <LIZBETH Sanchez - Last Filed: 04/14/21 16:58> VTE Prior VTE?: No <LIZBETH Sanchez - Last Filed: 04/14/21 16:58> VTE Risk Level:: Medical - moderate - high <LIZBETH Sanchez - Last Filed: 04/14/21 16:58> VTE Device Contraindication: N/A - Device Ordered <LIZBETH Sanchez - Last Filed: 04/14/21 16:58> VTE Drug Contraindication: N/A - Med Ordered <LIZBETH Sanchez - Last Filed: 04/14/21 16:58>
[2021-04-14 16:45] LABS: Glucose, Whole Blood 179 mg/dL (60-115)
[2021-04-14] MEDS: Insulin Lispro 100 UNIT/ML 3 ML VIAL SUBCUT ×2 (18:29→22:17)
[2021-04-14] MEDS: Heparin Sodium,Porcine 5,000 UNIT/ML VIAL 5000 UNIT SUBCUT (18:30)
[2021-04-14] MEDS: Lactated Ringers 1,000 ML 75 ML IVCONT (18:30)
--- NOTE | 2021-04-14 20:28 | MHC.CM.PN ---
CM met with admitted patient with bed assignment pending. A&Ox3. IMM reviewed and signed per protocol 04/14/2021@1915. Copy given and to medical records. HCP on file. HCP/ Edwige Faulkner ([phone]). Pt lives with his . Uses a cane and has a walker. No services. Fully vaccinated and boosted with Moderna. D/C plan is home without services. to provide transportation home. CM to follow for d/c needs.
[2021-04-14 21:27] LABS: Glucose, Whole Blood 164 mg/dL (60-115)
--- NOTE | 2021-04-14 22:10 | PC.NURSE ---
Assumed care of pt with report from previous nurse Pt resting on stretcher Pt attached to monitor Febrile Marques in place Dark red bloody urine with clots in bag, per previous RN Output: 800 cc Will continue to monitor
[2021-04-14] MEDS: Atorvastatin Calcium 40 MG TABLET PO (22:15)
[2021-04-14] MEDS: Metoprolol Succinate ER 100 MG TAB.ER.24H PO (22:15)
[2021-04-14] MEDS: hydrALAZINE HCl 50 MG TABLET 100 MG PO (22:16)
[2021-04-14] MEDS: gemfibroziL 600 MG TABLET PO (22:17)
--- NOTE | 2021-04-14 22:20 | PC.NURSE ---
Pt medicated per JUN Pt given 2 units insulin lispro with VALERIA Montoya as witness Pt tolerated well Will continue to monitor
[2021-04-15] VITALS (13 sets, daily range): BP systolic 117–168; BP diastolic 50–91; PULSE 71–106; RESP 18–30; TEMP 36.8–39.2; O2SAT 93–97
[2021-04-15] MEDS: Omeprazole 20 MG CAPSULE.DR PO (06:04)
[2021-04-15] MEDS: Acetaminophen 325 MG TABLET 650 MG PO ×2 (06:05→10:49)
[2021-04-15] MEDS: Heparin Sodium,Porcine 5,000 UNIT/ML VIAL 5000 UNIT SUBCUT (06:06)
[2021-04-15 07:30] LABS: MANUAL DIFF FLAG NO
[2021-04-15 07:35] LABS: Basophils Percent Auto 0.6 % (0-2); Eosinophils Percent Auto 0.3 % (0-4); Hematocrit 31.6 % (42.0-52.0); Hemoglobin 10.2 g/dl (14.0-18.0); Imm Gran Abs Auto 0.04 X10*3/uL (0.00-0.03); Imm Gran Pct Auto 0.6 % (0.0-0.4); Lymphocytes Absolute Auto 0.6 X10*3/uL (1.2-4.9); Lymphocytes Percent Auto 8.8 % (20-40); Mean Corpuscular HGB Conc 32.3 g/dl (31.0-36.0); Mean Corpuscular Hemoglobin 29.7 pg (27.0-33.0); Mean Corpuscular Volume 91.9 fL (80.0-98.0); Mean Platelet Volume 10.1 fL (9.4-12.4); Monocytes Absolute Auto 0.8 X10*3/uL (0.1-1.2); Monocytes Percent Auto 11.9 % (2-11); Neutrophils Absolute Auto 5.2 x10*3/uL (2.0-8.3); Neutrophils Percent Auto 77.8 % (45-73); Platelet Count 206 X10*3/uL (160-400); Red Blood Count 3.44 X10*6/uL (4.60-5.80); Red Cell Distribution Width 14.1 % (11.0-16.0); White Blood Count 6.6 X10*3/uL (4.8-10.8)
[2021-04-15 07:48] LABS: Anion Gap 13 (12-20); Blood Urea Nitrogen 28 mg/dL (9-16); Calcium 8.9 mg/dL (8.4-10.2); Carbon Dioxide 21 mmol/L (22-29); Chloride 106 mmol/L (96-108); Creatinine Clr Calc Pharmacy 50.3; Estimated Glomerular Filt Rate 45; Glucose Random 209 mg/dL (60-115); Potassium 4.7 mmol/L (3.3-5.1); Sodium 135 mmol/L (135-145)
[2021-04-15 08:19] LABS: Glucose, Whole Blood 208 mg/dL (60-115)
[2021-04-15] MEDS: Insulin Glargine,Hum.rec.anlog 100 UNIT/ML 10 ML VIAL 70 UNIT SUBCUT (09:09)
[2021-04-15] MEDS: Aspirin Enteric Coated 81 MG TABLET.DR PO (09:09)
[2021-04-15] MEDS: Metoprolol Succinate ER 100 MG TAB.ER.24H PO ×2 (09:09→23:16)
[2021-04-15] MEDS: Insulin Lispro 100 UNIT/ML 3 ML VIAL SUBCUT ×2 (09:09→23:17)
[2021-04-15] MEDS: Clopidogrel Bisulfate 75 MG TABLET PO (09:09)
[2021-04-15] MEDS: amLODIPine Besylate 10 MG TABLET PO (09:09)
--- NOTE | 2021-04-15 10:16 | PC.NURSE ---
Pt received from shift supervisor: AOx4 and offers no complaints at this time. NSR and dimished lung sounds. Abd rounded and nontender. Marques intact- with blood coming from tubing. Marques flushed with sterile normal saline however urine remains blood tinged with no clots noted. Pt also shaking and c/o chills. Fever noted of 101 oral. LIZBETH Meek made aware.
[2021-04-15] MEDS: hydrALAZINE HCl 50 MG TABLET 100 MG PO ×2 (10:33→23:16)
[2021-04-15] MEDS: gemfibroziL 600 MG TABLET PO ×2 (10:34→23:16)
[2021-04-15] MEDS: cefTRIAXone sodium 1 GM in 0.9 % Sodium Chloride 50 ML IV (11:19)
--- NOTE | 2021-04-15 12:19 | HO.PM.IMPN ---
Subjective Subjective Date of Service: 04/15/21 Interval History: seen and examined this morning spiked fever overnight still reporting chills this morning uncomfortable from mayo no sob, cough, abdominal pain, nausea, vomiting or diarrhea Review of Systems Review of Systems: Yes all other systems are reviewed and are negative Constitutional Constitutional: Reports chills and Reports fever(s) Cardiovascular Cardiovascular: Denies chest pain Respiratory Respiratory: Denies cough Gastrointestinal Gastrointestinal: Denies abdominal pain Physical Exam Vital Signs: Vital Signs: Last Vital Signs Temp 102.1 F H 04/15/21 12:14 Pulse 93 04/15/21 12:14 Resp 26 H 04/15/21 12:14 BP 160/57 H 04/15/21 12:14 Pulse Ox 93 04/15/21 12:14 BMI result Body Mass Index 33.0 Const: General: cooperative, comfortable, no acute distress, alert and awake Nutritional Appearance: overweight Orientation/consciousness: patient oriented x3 HENMT: Head: Yes normocephalic and Yes atraumatic Eyes: Sclerae: sclerae normal Pupils: Equal, round and reactive pupils present Resp: Effort & Inspection: normal respiratory effort and no respiratory distress Cardio: Rate: regular rate Rhythm: regular rhythm GI: Inspection: No distended Palpation (GI): Soft to palpation and nontender : Other: mayo draining pink urine General: No no CVA tenderness Back/Spine/Pelvis: Back: No no CVA tenderness Neuro: General: patient oriented x3 Cranial nerves: Yes CN's II-XII intact bilaterally, Yes Equal, round and reactive pupils present and Yes Bilaterally intact EOM present Extrem: Other: no leg edema; able to move all 4 extremities spontaneously Objective Data Active Medications Acetaminophen (Acetaminophen 325 Mg Tablet) 650 mg PO Q6H PRN PRN Reason: Pain, Mild (Pain Scale 1-3) Last Admin: 04/15/21 10:49 Dose: 650 mg Documented by: ERNESTINE Amlodipine Besylate (Amlodipine Besylate 10 Mg Tablet) 10 mg PO DAILY [facility]; Protocol Last Admin: 04/15/21 09:09 Dose: 10 mg Documented by: GRIS Aspirin (Aspirin Enteric Coated 81 Mg Tablet.) 81 mg PO DAILY [facility] Last Admin: 04/15/21 09:09 Dose: 81 mg Documented by: GRIS Atorvastatin Calcium (Atorvastatin Calcium 40 Mg Tablet) 40 mg PO BEDTIME [facility] Last Admin: 04/14/21 22:15 Dose: 40 mg Documented by: ADELITA Clopidogrel Bisulfate (Clopidogrel Bisulfate 75 Mg Tablet) 75 mg PO DAILY [facility] Last Admin: 04/15/21 09:09 Dose: 75 mg Documented by: GRIS Dextrose (Dextrose 50 % 25 Gm/50 Ml Vial) 25 gm IVPUSH Q15M PRN; Protocol PRN Reason: per Hypoglycemia Standing Ord. Docusate Sodium (Docusate Sodium 100 Mg Capsule) 100 mg PO DAILY PRN PRN Reason: Constipation Gemfibrozil (Gemfibrozil 600 Mg Tablet) 600 mg PO BID [facility] Last Admin: 04/15/21 10:34 Dose: 600 mg Documented by: ERNESTINE Glucose (Glucose Gel 15 Gm Gel..Gram.) 15 gm PO Q15M PRN; Protocol PRN Reason: per Hypoglycemia Standing Ord. Heparin Sodium (Porcine) (Heparin Sodium,Porcine 5,000 Unit/Ml Vial) 5,000 unit SUBCUT Q12H [facility] Last Admin: 04/15/21 06:06 Dose: 5,000 unit Documented by: ADELITA Hydralazine HCl (Hydralazine Hcl 50 Mg Tablet) 100 mg PO BID [facility]; Protocol Last Admin: 04/15/21 10:33 Dose: 100 mg Documented by: ERNESTINE Ceftriaxone Sodium 1 gm/ (Sodium Chloride) 50 mls @ 100 mls/hr IV Q24H [facility] Last Infusion: 04/15/21 12:06 Dose: 0 mls/hr Documented by: GRIS Insulin Glargine (Insulin Glargine,Hum.Rec.Anlog 100 Unit/Ml 10 Ml Vial) 70 unit SUBCUT DAILY [facility] Last Admin: 04/15/21 09:09 Dose: 70 unit Documented by: GRIS Insulin Human Lispro (Insulin Lispro 100 Unit/Ml 3 Ml Vial) 0 unit SUBCUT QIDACHS [facility]; Protocol Last Admin: 04/15/21 09:09 Dose: 1 unit Documented by: GRIS Comments: 4 U Metoprolol Succinate (Metoprolol Succinate Er 100 Mg Tab.Er.24h) 100 mg PO BID [facility]; Protocol Last Admin: 04/15/21 09:09 Dose: 100 mg Documented by: GRIS Omeprazole (Omeprazole 20 Mg Capsule.Dr) 20 mg PO DAILY@0630 [facility] Last Admin: 04/15/21 06:04 Dose: 20 mg Documented by: ADELITA Ondansetron HCl (Ondansetron Hcl 4 Mg/2 Ml Vial) 4 mg IVPUSH Q8H PRN PRN Reason: Nausea and Vomiting Pharmacy Consult (Consult Rx Perform Med Rec) 1 each MISCELLANE ONCE PRN PRN Reason: Consult order Sodium Chloride (0.9 % Sodium Chloride Flush 3 Ml Syringe) 3 ml IVFLUSH QSHIFT [facility] Last Admin: 04/15/21 08:50 Dose: Not Given Documented by: GRIS Non-Admin Reason: Med Not Available Labs CBC & Chem 7: 04/15/21 07:19 04/15/21 07:19 Labs: Laboratory Results - last 24 hr 04/14/21 04/14/21 04/14/21 12:24 12:24 12:24 MCV 92.4 MCH 29.6 MCHC 32.1 RDW 13.9 Plt Count 241 MPV 9.8 Immature Gran % (Auto) 1.1 H Neut % (Auto) 82.2 H Lymph % (Auto) 6.5 L [place] % (Auto) 9.7 Eos % (Auto) 0.1 Baso % (Auto) 0.4 Lymph # (Auto) 0.5 L [place] # (Auto) 0.8 Eos # (Auto) 0.0 Baso # (Auto) 0.0 Abs Immat Gran (auto) 0.09 H Absolute Neuts (auto) 6.6 Absolute Nucleated RBC 0.000 Nucleated RBC % (auto) 0.0 Anion Gap 13 Estim Creat Clear Calc 42.4 Estimated GFR 37 POC Glucose Random Glucose 118 H D Lactic Acid Calcium 9.4 Magnesium 2.0 Total Bilirubin 0.5 Direct Bilirubin 0.3 AST 29 ALT 20 Alkaline Phosphatase 140 H Troponin I High Sens B-Natriuretic Peptide 237 H Total Protein 7.0 Albumin 4.3 Lipase 41 Urine Color Urine Appearance Urine pH Ur Specific [place] Urine Protein Urine Glucose (UA) Urine Ketones Urine Blood Urine Nitrite Ur Leukocyte Esterase Urine RBC Urine WBC Ur Squamous Epith Cells Urine Bacteria COVID-19 (NEL) COVID-19 Clin Com 04/14/21 04/14/21 04/14/21 12:24 12:24 12:24 MCV MCH MCHC RDW Plt Count MPV Immature Gran % (Auto) Neut % (Auto) Lymph % (Auto) [place] % (Auto) Eos % (Auto) Baso % (Auto) Lymph # (Auto) [place] # (Auto) Eos # (Auto) Baso # (Auto) Abs Immat Gran (auto) Absolute Neuts (auto) Absolute Nucleated RBC Nucleated RBC % (auto) Anion Gap Estim Creat Clear Calc Estimated GFR POC Glucose Random Glucose Lactic Acid 0.6 Calcium Magnesium Total Bilirubin Direct Bilirubin AST ALT Alkaline Phosphatase Troponin I High Sens 12.4 B-Natriuretic Peptide Total Protein Albumin Lipase Urine Color Urine Appearance Urine pH Ur Specific [place] Urine Protein Urine Glucose (UA) Urine Ketones Urine Blood Urine Nitrite Ur Leukocyte Esterase Urine RBC Urine WBC Ur Squamous Epith Cells Urine Bacteria COVID-19 (NEL) Negative COVID-19 Clin Com See Note 04/14/21 04/14/21 04/14/21 14:41 15:45 16:38 MCV MCH MCHC RDW Plt Count MPV Immature Gran % (Auto) Neut % (Auto) Lymph % (Auto) [place] % (Auto) Eos % (Auto) Baso % (Auto) Lymph # (Auto) [place] # (Auto) Eos # (Auto) Baso # (Auto) Abs Immat Gran (auto) Absolute Neuts (auto) Absolute Nucleated RBC Nucleated RBC % (auto) Anion Gap Estim Creat Clear Calc 45.7 Estimated GFR 40 POC Glucose 179 H Random Glucose Lactic Acid Calcium Magnesium Total Bilirubin Direct Bilirubin AST ALT Alkaline Phosphatase Troponin I High Sens B-Natriuretic Peptide Total Protein Albumin Lipase Urine Color YELLOW Urine Appearance CLEAR Urine pH 5.5 Ur Specific [place] 1.020 Urine Protein 2+ H Urine Glucose (UA) NEG Urine Ketones NEG Urine Blood TRACE Urine Nitrite NEG Ur Leukocyte Esterase NEG Urine RBC 15-29 H Urine WBC 0 Ur Squamous Epith Cells 1+ Urine Bacteria 1+ COVID-19 (NEL) COVID-19 Holograam Com 04/14/21 04/15/21 04/15/21 21:22 07:19 07:19 MCV 91.9 MCH 29.7 MCHC 32.3 RDW 14.1 Plt Count 206 MPV 10.1 Immature Gran % (Auto) 0.6 H Neut % (Auto) 77.8 H Lymph % (Auto) 8.8 L [place] % (Auto) 11.9 H Eos % (Auto) 0.3 Baso % (Auto) 0.6 Lymph # (Auto) 0.6 L [place] # (Auto) 0.8 Eos # (Auto) 0.0 Baso # (Auto) 0.0 Abs Immat Gran (auto) 0.04 H Absolute Neuts (auto) 5.2 Absolute Nucleated RBC 0.000 Nucleated RBC % (auto) 0.0 Anion Gap 13 Estim Creat Clear Calc 50.3 Estimated GFR 45 POC Glucose 164 H Random Glucose 209 H D Lactic Acid Calcium 8.9 Magnesium Total Bilirubin Direct Bilirubin AST ALT Alkaline Phosphatase Troponin I High Sens B-Natriuretic Peptide Total Protein Albumin Lipase Urine Color Urine Appearance Urine pH Ur Specific [place] Urine Protein Urine Glucose (UA) Urine Ketones Urine Blood Urine Nitrite Ur Leukocyte Esterase Urine RBC Urine WBC Ur Squamous Epith Cells Urine Bacteria COVID-19 (NEL) COVID-19 Clin Com 04/15/21 08:16 MCV MCH MCHC RDW Plt Count MPV Immature Gran % (Auto) Neut % (Auto) Lymph % (Auto) [place] % (Auto) Eos % (Auto) Baso % (Auto) Lymph # (Auto) [place] # (Auto) Eos # (Auto) Baso # (Auto) Abs Immat Gran (auto) Absolute Neuts (auto) Absolute Nucleated RBC Nucleated RBC % (auto) Anion Gap Estim Creat Clear Calc Estimated GFR POC Glucose 208 H Random Glucose Lactic Acid Calcium Magnesium Total Bilirubin Direct Bilirubin AST ALT Alkaline Phosphatase Troponin I High Sens B-Natriuretic Peptide Total Protein Albumin Lipase Urine Color Urine Appearance Urine pH Ur Specific [place] Urine Protein Urine Glucose (UA) Urine Ketones Urine Blood Urine Nitrite Ur Leukocyte Esterase Urine RBC Urine WBC Ur Squamous Epith Cells Urine Bacteria COVID-19 (NEL) COVID-19 Clin Com Assessment and Plan (1) Fever: Status: Acute (2) DOMENICO (acute kidney injury): Status: Acute (3) Acute urinary retention: Status: Acute Assessment and Plan: this is a 76 year old male with history of DM, CAD s/p CABG, carotid stenosis s/p left CEA, HTN, HLD, CKD3, PVD among others who presents to the ED with two days of chills and feeling lightheaded found to have DOMENICO Fever CT abdomen, CXR with no source of infection covid negative UA not highly suggestive of infection -will repeat UA -empiric ceftriaxone -follow BCx -check lactic acid DOMENICO on CKD3 creatinine improved slightly no obstruction on CT hold Aldactone, HCTZ, olmesartan gentle IVF follow BMP urinary retention mayo placed hematuria ?r/t mayo placement will hold asa, plavix DM reports episodes of hypoglycemia, has been taking his Lantus daily instead of bid and decreasing dose of lispro last HbA1c reportedly 6.2 will continue Lantus daily, up titrate as needed SSI, POCs, ADA diet HTN continue hydralazine, norvasc and metoprolol hold aldactone, HCTZ, olmesartan for DOMENICO monitor BP closely CAD continue asa/plavix, statin, BB HLD continue lopid, statin gerd continue omeprazole code status - full code dvt ppx - heparin attending - dr. Becerra Quality Stroke Does the patient have a stroke diagnosis?: No VTE Prior VTE?: No VTE Risk Level:: Medical - moderate - high VTE Device Contraindication: N/A - Device Ordered VTE Drug Contraindication: N/A - Med Ordered
[2021-04-15 13:17] LABS: Glucose, Whole Blood 258 mg/dL (60-115)
[2021-04-15 13:23] LABS: Alanine Aminotransferase 25 U/L (0-40); Albumin Level 3.8 g/dL (3.5-5.0); Alkaline Phosphatase 124 U/L (39-117); Aspartate Amino Transferase 39 U/L (5-37); Bilirubin Direct 0.4 mg/dL (0.0-0.5); Bilirubin Total 0.7 mg/dL (0.0-1.0); Total Protein 6.2 g/dL (6.5-8.0)
[2021-04-15 13:35] LABS: Lactic Acid 1.8 mmol/L (0.5-2.0)
--- NOTE | 2021-04-15 13:45 | MHC.CM.PN ---
EMR REVIEWED, PT NOW W/SUSTAINED FEVER, NO PLAN FOR D/C AT THIS TIME, PLAN CONT'S TO BE HOME NO SERVICES W/FAMILY FOR TRANSPORT, CM WILL CONT TO MONITOR D/C NEEDS.
[2021-04-15] MEDS: Doxycycline Hyclate 100 MG in 0.9 % Sodium Chloride 250 ML 166.67 MG IV (14:30)
--- NOTE | 2021-04-15 16:28 | PC.NURSE ---
MD Up at bedside for mayo placement
[2021-04-15 16:38] LABS: Glucose, Whole Blood 208 mg/dL (60-115)
--- NOTE | 2021-04-15 16:38 | PC.NURSE ---
Pt increasingly more nauseous with vomitingx1. Pt current B/S 208. Pt's insulin held at this point due to vomit. PRN zofran given at this time. RN will continue to monitor.
--- NOTE | 2021-04-15 17:26 | PM.UROCN ---
History of Present Illness Consult details Consult date: 04/15/21 Narrative: John is a 76-year-old male Admitted to hospital with elevated creatinine and acute renal injury There has been difficulty in attempting to place Marques catheter Urology is consulted for difficult Marques catheter placement [place] Mar[place] catheter attempt to be placed Unable to advance past the bladder neck Appears to be iatrogenic trauma Glidewire able to be placed into bladder [place] tip Marques catheter placed over wire Good urine drainage Marques catheter should remain for minimum 3-5 days Review of Systems Constitutional: Constitutional: Reports as per HPI and Reports no additional constitutional complaints Cardiovascular: Cardiovascular: Reports as per HPI and Reports no additional cardiovascular complaints Respiratory: Respiratory: Reports as per HPI and Reports no additional respiratory complaints Gastrointestinal: Gastrointestinal: Reports as per HPI and Reports no additional gastrointestinal complaints Genitourinary: Genitourinary: Reports as per HPI Musculoskeletal: Musculoskeletal: Reports no additional musculoskeletal complaints and Reports as per HPI Neurologic: Reports system reviewed and no additional complaints, except as documented and Reports as per HPI PMFSH Past Medical History 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 CAD (coronary artery disease) Chronic kidney disease, stage 3 CVA (cerebral vascular accident) Diabetes H/O cataract Hepatitis C High cholesterol HTN (hypertension) Hyperlipidemia Peripheral vascular disease Family History Family History Other CAD (coronary artery disease) Surgical History Surgical History History of ankle surgery History of esophagogastroduodenoscopy (EGD) Hx of colonoscopy S/P CABG (coronary artery bypass graft) (~2006) S/P carotid endarterectomy (~08/2018) Social History Social History (Updated 04/14/21 @ 11:26 by Joyce Coombs DO) Household Members: Spouse Housing: House Do you presently have visiting nurse or other home services: No Alcohol intake: never Patient Tobacco Use Status: Never used Tobacco Substance Use Type: Marijuana Advance Directives: Yes Advance Directives Information Provided: No Advance Directives on File: No service: No Current occupational status: retired Meds Allergies Allergy/AdvReac Type Severity Reaction Status Date / Time No Known Allergies Allergy Verified 01/07/21 09:26 [No Known Allergies*] Active Medications: Current Medications Acetaminophen (Acetaminophen 325 Mg Tablet) 650 mg PO Q6H PRN PRN Reason: Pain, Mild (Pain Scale 1-3) Last Admin: 04/15/21 10:49 Dose: 650 mg Documented by: Amlodipine Besylate (Amlodipine Besylate 10 Mg Tablet) 10 mg PO DAILY [facility]; Protocol Last Admin: 04/15/21 09:09 Dose: 10 mg Documented by: Aspirin (Aspirin Enteric Coated 81 Mg Tablet.) 81 mg PO DAILY [facility] Last Admin: 04/15/21 09:09 Dose: 81 mg Documented by: Atorvastatin Calcium (Atorvastatin Calcium 40 Mg Tablet) 40 mg PO BEDTIME [facility] Last Admin: 04/14/21 22:15 Dose: 40 mg Documented by: Clopidogrel Bisulfate (Clopidogrel Bisulfate 75 Mg Tablet) 75 mg PO DAILY [facility] Last Admin: 04/15/21 09:09 Dose: 75 mg Documented by: Dextrose (Dextrose 50 % 25 Gm/50 Ml Vial) 25 gm IVPUSH Q15M PRN; Protocol PRN Reason: per Hypoglycemia Standing Ord. Docusate Sodium (Docusate Sodium 100 Mg Capsule) 100 mg PO DAILY PRN PRN Reason: Constipation Gemfibrozil (Gemfibrozil 600 Mg Tablet) 600 mg PO BID [facility] Last Admin: 04/15/21 10:34 Dose: 600 mg Documented by: Glucose (Glucose Gel 15 Gm Gel..Gram.) 15 gm PO Q15M PRN; Protocol PRN Reason: per Hypoglycemia Standing Ord. Hydralazine HCl (Hydralazine Hcl 50 Mg Tablet) 100 mg PO BID [facility]; Protocol Last Admin: 04/15/21 10:33 Dose: 100 mg Documented by: Ceftriaxone Sodium 1 gm/ (Sodium Chloride) 50 mls @ 100 mls/hr IV Q24H [facility] Last Infusion: 04/15/21 12:06 Dose: Infused Documented by: Doxycycline Hyclate 100 mg/ (Sodium Chloride) 250 mls @ 166.67 mls/hr IV Q12H [facility] Last Infusion: 04/15/21 16:00 Dose: Infused Documented by: Insulin Glargine (Insulin Glargine,Hum.Rec.Anlog 100 Unit/Ml 10 Ml Vial) 70 unit SUBCUT DAILY [facility] Last Admin: 04/15/21 09:09 Dose: 70 unit Documented by: Insulin Human Lispro (Insulin Lispro 100 Unit/Ml 3 Ml Vial) 0 unit SUBCUT QIDACHS [facility]; Protocol Last Admin: 04/15/21 16:36 Dose: Not Given Documented by: Metoprolol Succinate (Metoprolol Succinate Er 100 Mg Tab.Er.24h) 100 mg PO BID [facility]; Protocol Last Admin: 04/15/21 09:09 Dose: 100 mg Documented by: Omeprazole (Omeprazole 20 Mg Capsule.Dr) 20 mg PO DAILY@0630 [facility] Last Admin: 04/15/21 06:04 Dose: 20 mg Documented by: Ondansetron HCl (Ondansetron Hcl 4 Mg/2 Ml Vial) 4 mg IVPUSH Q8H PRN PRN Reason: Nausea and Vomiting Pharmacy Consult (Consult Rx Perform Med Rec) 1 each MISCELLANE ONCE PRN PRN Reason: Consult order Sodium Chloride (0.9 % Sodium Chloride Flush 3 Ml Syringe) 3 ml IVFLUSH QSHIFT [facility] Last Admin: 04/15/21 15:38 Dose: Not Given Documented by: Home Medications Medication Instructions Recorded Confirmed Last Taken Type amlodipine 10 mg tablet 1 tab PO DAILY 04/22/20 04/14/21 04/14/21 History atorvastatin 40 mg tablet 1 tab PO BEDTIME 04/22/20 04/14/21 04/14/21 History clopidogrel 75 mg tablet 1 tab PO DAILY 04/22/20 04/14/21 04/14/21 History insulin glargine 100 unit/mL 70 unit SUBCUT BID 04/22/20 04/14/21 04/14/21 History subcutaneous solution (Lantus U-100 Insulin) insulin lispro 100 unit/mL 30 unit SUBCUT TID 04/22/20 04/14/21 04/14/21 History subcutaneous solution metoprolol succinate 200 mg 100 mg PO BID 04/22/20 04/14/21 04/14/21 History tablet,extended release 24 hr olmesartan 40 mg tablet 1 tab PO DAILY 04/22/20 04/14/21 04/14/21 History spironolactone 25 1 tab PO DAILY 04/22/20 04/14/21 04/14/21 History mg-hydrochlorothiazide 25 mg tablet aspirin 81 mg tablet,delayed 81 mg PO DAILY 05/19/20 04/14/21 04/14/21 History release (Adult Low Dose Aspirin) gemfibrozil 600 mg tablet 600 mg PO BID 05/19/20 04/14/21 04/14/21 History hydralazine 100 mg tablet 100 mg PO BID tab 05/19/20 04/14/21 04/14/21 History omeprazole 20 mg capsule,delayed 1 cap PO DAILY 05/24/20 04/14/21 04/14/21 History release insulin syringe-needle U-100 1 mL #10 ea 09/21/20 Unknown History 28 gauge x 1/2 docosahexaenoic acid (dha)-epa 1 cap PO DAILY 04/14/21 04/14/21 04/14/21 History capsule Physical Exam Vital Signs: Vital Signs: Last Vital Signs Temp 100.3 F 04/15/21 15:35 Pulse 92 04/15/21 15:35 Resp 24 H 04/15/21 15:35 BP 152/66 H 04/15/21 15:35 Pulse Ox 94 04/15/21 15:35 BMI result Body Mass Index 33.0 Const: General: cooperative, healthy appearing, comfortable and no acute distress Orientation/consciousness: patient oriented x3 HENMT: Face and sinus: Yes normal facial exam Mouth: moist mucous membranes Neck: Neck: Yes normal visual inspection, Yes full ROM and Yes trachea midline Chest: Chest palpation & inspection: normal inspection of the chest Resp: Effort & Inspection: normal respiratory effort, able to speak in complete sentences and no respiratory distress GI: Inspection: Yes normal to inspection Back/Spine/Pelvis: Cervical Spine: normal cervical lordosis Thoracic/Lumbar Spine: thoracic and lumbar spine normal to inspection Skin: General skin exam: no rashes or lesions noted Neuro: General: patient oriented x3, tone normal and moves all extremities Extrem: General: Yes normal to inspection and Yes capillary refill normal Results Labs Result diagrams: 04/15/21 07:19 04/15/21 07:19 Labs: Abnormal lab results 04/14/21 04/15/21 04/15/21 Range/Units 21:22 07:19 07:19 RBC 3.44 L (4.60-5.80) X10*6/uL Hgb 10.2 L (14.0-18.0) g/dl Hct 31.6 L (42.0-52.0) % Immature Gran % (Auto) 0.6 H (0.0-0.4) % Neut % (Auto) 77.8 H (45-73) % Lymph % (Auto) 8.8 L (20-40) % [place] % (Auto) 11.9 H (2-11) % Lymph # (Auto) 0.6 L (1.2-4.9) X10*3/uL Abs Immat Gran (auto) 0.04 H (0.00-0.03) X10*3/uL Carbon Dioxide 21 L (22-29) mmol/L BUN 28 H (9-16) mg/dL Creatinine 1.51 H (0.5-1.4) mg/dL POC Glucose 164 H (60-115) mg/dL Random Glucose 209 H D (60-115) mg/dL AST 39 H (5-37) U/L Alkaline Phosphatase 124 H (39-117) U/L Total Protein 6.2 L (6.5-8.0) g/dL 04/15/21 04/15/21 04/15/21 Range/Units 08:16 13:11 16:33 RBC (4.60-5.80) X10*6/uL Hgb (14.0-18.0) g/dl Hct (42.0-52.0) % Immature Gran % (Auto) (0.0-0.4) % Neut % (Auto) (45-73) % Lymph % (Auto) (20-40) % [place] % (Auto) (2-11) % Lymph # (Auto) (1.2-4.9) X10*3/uL Abs Immat Gran (auto) (0.00-0.03) X10*3/uL Carbon Dioxide (22-29) mmol/L BUN (9-16) mg/dL Creatinine (0.5-1.4) mg/dL POC Glucose 208 H 258 H 208 H (60-115) mg/dL Random Glucose (60-115) mg/dL AST (5-37) U/L Alkaline Phosphatase (39-117) U/L Total Protein (6.5-8.0) g/dL Short CBC 04/15/21 Range/Units 07:19 WBC 6.6 (4.8-10.8) X10*3/uL Hgb 10.2 L (14.0-18.0) g/dl Hct 31.6 L (42.0-52.0) % Plt Count 206 (160-400) X10*3/uL BMP 04/15/21 07:19 Sodium 135 Potassium 4.7 Chloride 106 Carbon Dioxide 21 L BUN 28 H Creatinine 1.51 H Calcium 8.9 Liver Function 04/15/21 Range/Units 07:19 Total Bilirubin 0.7 (0.0-1.0) mg/dL Direct Bilirubin 0.4 (0.0-0.5) mg/dL AST 39 H (5-37) U/L ALT 25 (0-40) U/L Alkaline Phosphatase 124 H (39-117) U/L Albumin 3.8 (3.5-5.0) g/dL Urine 04/14/21 Range/Units 15:45 Urine Color YELLOW Urine Appearance CLEAR Urine pH 5.5 (5.0-8.0) Ur Specific [place] 1.020 (1.005-1.025) Urine Protein 2+ H (NEG-TRACE) MG/DL Urine Glucose (UA) NEG (NEG) MG/DL All other labs normal. Assessment and Plan (1) Difficult Marques catheter placement: Status: Acute (2) DOMENICO (acute kidney injury): Status: Acute Marques catheter placed see above note Procedures Date of Service Date of Service: 04/15/21 Catheter Insertion (Urinary) Date of insertion: 04/15/21 Time of insertion: 17:28 Replacement of catheter present on admission: No Reason for placing: Acute urinary retention (Difficult Marques catheter placement) Catheter type/location: 2-way Urethral Catheter balloon size (mL): 10 Results: consulted Comment: [place] tip catheter placed over guidewire
[2021-04-15 20:40] LABS: Glucose, Whole Blood 180 mg/dL (60-115)
[2021-04-15] MEDS: Atorvastatin Calcium 40 MG TABLET PO (23:16)
[2021-04-15] MEDS: 0.9 % Sodium Chloride Flush 3 ML SYRINGE IVFLUSH (23:17)
[2021-04-15 23:36] LABS: Glucose, Whole Blood 155 mg/dL (60-115)
[2021-04-16] VITALS (8 sets, daily range): BP systolic 127–152; BP diastolic 58–67; PULSE 61–67; RESP 16–19; TEMP 36.3–37.1; O2SAT 94–97
[2021-04-16] MEDS: Doxycycline Hyclate 100 MG in 0.9 % Sodium Chloride 250 ML 166.67 MG IV ×2 (02:32→14:24)
[2021-04-16] MEDS: Omeprazole 20 MG CAPSULE.DR PO (05:43)
[2021-04-16 05:53] LABS: Adenovirus PCR Not Detected (Not Detect.); Bordetella parapertussis PCR Not Detected (Not Detect.); Bordetella pertussis PCR Not Detected (Not Detect.); Chlamydia pneumoniae PCR Not Detected (Not Detect.); Coronavirus 229E PCR Not Detected (Not Detect.); Coronavirus HKU1 PCR Not Detected (Not Detect.); Coronavirus NL63 PCR Not Detected (Not Detect.); Coronavirus OC43 PCR Not Detected (Not Detect.); Human metapneumovirus PCR Not Detected (Not Detect.); Influenza A PCR Not Detected (Not Detect.); Influenza B PCR Not Detected (Not Detect.); Mycoplasma pneumoniae PCR Not Detected (Not Detect.); Parainfluenza 1 PCR Not Detected (Not Detect.); Parainfluenza 2 PCR Not Detected (Not Detect.); Parainfluenza 3 PCR Not Detected (Not Detect.); Parainfluenza 4 PCR Not Detected (Not Detect.); RSV PCR Not Detected (Not Detect.); Rhino/Enterovirus PCR Not Detected (Not Detect.); SARS-CoV-2 PCR Not Detected (Not Detect.)
[2021-04-16 06:14] LABS: Anion Gap 14 (12-20); Blood Urea Nitrogen 47 mg/dL (9-16); Calcium 8.8 mg/dL (8.4-10.2); Carbon Dioxide 21 mmol/L (22-29); Chloride 105 mmol/L (96-108); Creatinine Clr Calc Pharmacy 33.4; Estimated Glomerular Filt Rate 28; Glucose Random 166 mg/dL (60-115); Potassium 4.2 mmol/L (3.3-5.1); Sodium 136 mmol/L (135-145)
[2021-04-16 06:32] LABS: Basophils Percent Auto 0.2 % (0-2); Eosinophils Percent Auto 0.2 % (0-4); Hematocrit 28.9 % (42.0-52.0); Hemoglobin 9.3 g/dl (14.0-18.0); Imm Gran Pct Auto 0.6 % (0.0-0.4); Lymphocytes Percent Auto 5.5 % (20-40); MANUAL DIFF FLAG SCAN; Mean Corpuscular HGB Conc 32.2 g/dl (31.0-36.0); Mean Corpuscular Hemoglobin 29.7 pg (27.0-33.0); Mean Corpuscular Volume 92.3 fL (80.0-98.0); Mean Platelet Volume 11.1 fL (9.4-12.4); Monocytes Absolute Auto 1.6 X10*3/uL (0.1-1.2); Monocytes Percent Auto 9.3 % (2-11); Neutrophils Absolute Auto 14.6 x10*3/uL (2.0-8.3); Neutrophils Percent Auto 84.2 % (45-73); Platelet Count 181 X10*3/uL (160-400); Red Blood Count 3.13 X10*6/uL (4.60-5.80); Red Cell Distribution Width 14.3 % (11.0-16.0); SCAN SMEAR FLAG 1; White Blood Count 17.3 X10*3/uL (4.8-10.8)
[2021-04-16 07:32] LABS: SLIDE REVIEW VERIFIED
[2021-04-16 07:41] LABS: Glucose, Whole Blood 163 mg/dL (60-115)
[2021-04-16] MEDS: Insulin Lispro 100 UNIT/ML 3 ML VIAL SUBCUT ×4 (07:41→21:10)
[2021-04-16] MEDS: Lactated Ringers 1,000 ML 80 ML IVCONT ×2 (07:42→21:09)
[2021-04-16] MEDS: hydrALAZINE HCl 50 MG TABLET 100 MG PO ×2 (07:42→21:12)
[2021-04-16] MEDS: 0.9 % Sodium Chloride Flush 3 ML SYRINGE IVFLUSH ×2 (07:43→16:11)
[2021-04-16] MEDS: Metoprolol Succinate ER 100 MG TAB.ER.24H PO ×2 (07:43→21:12)
[2021-04-16] MEDS: amLODIPine Besylate 10 MG TABLET PO (07:43)
[2021-04-16] MEDS: gemfibroziL 600 MG TABLET PO ×2 (07:43→21:16)
[2021-04-16] MEDS: Insulin Glargine,Hum.rec.anlog 100 UNIT/ML 10 ML VIAL 70 UNIT SUBCUT (10:18)
--- NOTE | 2021-04-16 10:52 | HO.PM.IMPN ---
Subjective Subjective Date of Service: 04/16/21 <LIZBETH Sanchez - Last Filed: 04/16/21 11:20> 04/17/21 <Narendra Greene MD - Last Filed: 04/17/21 10:11> Interval History: seen and examined this morning follow up for fever mayo changed by urology last night, hematuria resolved abefrile overnight patient not feeling well, but no specific complaints. no sob, no chest pain, no abdominal pain, vomiting or diarrhea <LIZBETH Sanchez - Last Filed: 04/16/21 11:20> Review of Systems Review of Systems: Yes all other systems are reviewed and are negative <LIZBETH Sanchez Last Filed: 04/16/21 11:20> Constitutional Constitutional: Denies chills, Denies fever(s) and Reports lethargy <LIZBETH Sanchez - Last Filed: 04/16/21 11:20> Cardiovascular Cardiovascular: Denies chest pain and Denies dyspnea <LIZBETH Sanchez - Last Filed: 04/16/21 11:20> Respiratory Respiratory: Denies cough, Denies excessive phlegm production and Denies dyspnea <LIZBETH Sanchez Last Filed: 04/16/21 11:20> Gastrointestinal Gastrointestinal: Denies abdominal pain, Denies diarrhea, Denies nausea and Denies vomiting <LIZBETH Sanchez Last Filed: 04/16/21 11:20> Genitourinary Genitourinary: Denies hematuria <LIZBETH Sanchez - Last Filed: 04/16/21 11:20> Physical Exam Vital Signs: Vital Signs: Last Vital Signs Temp 97.6 F 04/16/21 07:17 Pulse 67 04/16/21 07:17 Resp 19 04/16/21 07:17 BP 136/60 04/16/21 07:17 Pulse Ox 96 04/16/21 07:17 BMI result Body Mass Index 33.0 <LIZBETH Sanchez Last Filed: 04/16/21 11:20> Const: General: cooperative, comfortable, no acute distress, alert, awake and tired appearing <LIZBETH Sanchez Last Filed: 04/16/21 11:20> Nutritional Appearance: overweight <LIZBETH Sanchez - Last Filed: 04/16/21 11:20> Orientation/consciousness: patient oriented x3 <LIZBETH Sanchez - Last Filed: 04/16/21 11:20> HENMT: Head: Yes normocephalic and Yes atraumatic <LIZBETH Sanchez - Last Filed: 04/16/21 11:20> Eyes: Sclerae: sclerae normal <LIZBETH Sanchez - Last Filed: 04/16/21 11:20> Pupils: Equal, round and reactive pupils present <LIZBETH Sanchez - Last Filed: 04/16/21 11:20> Resp: Effort & Inspection: normal respiratory effort and no respiratory distress <LIZBETH Sanchez - Last Filed: 04/16/21 11:20> Cardio: Rate: regular rate <LIZBETH Sanchez - Last Filed: 04/16/21 11:20> Rhythm: regular rhythm <LIZBETH Sanchez - Last Filed: 04/16/21 11:20> GI: Inspection: No distended <LIZBETH Sanchez - Last Filed: 04/16/21 11:20> Palpation (GI): Soft to palpation and nontender <LIZBETH Sanchez - Last Filed: 04/16/21 11:20> : Other: mayo draining yellow urine <LIZBETH Sanchez - Last Filed: 04/16/21 11:20> General: No no CVA tenderness <LIZBETH Sanchez - Last Filed: 04/16/21 11:20> Back/Spine/Pelvis: Back: No no CVA tenderness <LIZBETH Sanchez - Last Filed: 04/16/21 11:20> Neuro: General: patient oriented x3 <LIZBETH Sanchez - Last Filed: 04/16/21 11:20> Cranial nerves: Yes CN's II-XII intact bilaterally, Yes Equal, round and reactive pupils present and Yes Bilaterally intact EOM present <LIZBETH Sanchez - Last Filed: 04/16/21 11:20> Extrem: Other: no leg edema; able to move all 4 extremities spontaneously <LIZBETH Sanchez - Last Filed: 04/16/21 11:20> Objective Data Active Medications Acetaminophen (Acetaminophen 325 Mg Tablet) 650 mg PO Q6H PRN PRN Reason: Pain, Mild (Pain Scale 1-3) Last Admin: 04/15/21 10:49 Dose: 650 mg Documented by: ERNESTINE Amlodipine Besylate (Amlodipine Besylate 10 Mg Tablet) 10 mg PO DAILY [facility]; Protocol Last Admin: 04/16/21 07:43 Dose: 10 mg Documented by: KIRSTY Aspirin (Aspirin Enteric Coated 81 Mg Tablet.Dr) 81 mg PO DAILY [facility] Last Admin: 04/15/21 09:09 Dose: 81 mg Documented by: GRIS Atorvastatin Calcium (Atorvastatin Calcium 40 Mg Tablet) 40 mg PO BEDTIME [facility] Last Admin: 04/15/21 23:16 Dose: 40 mg Documented by: JYOTI Clopidogrel Bisulfate (Clopidogrel Bisulfate 75 Mg Tablet) 75 mg PO DAILY [facility] Last Admin: 04/15/21 09:09 Dose: 75 mg Documented by: GRIS Dextrose (Dextrose 50 % 25 Gm/50 Ml Vial) 25 gm IVPUSH Q15M PRN; Protocol PRN Reason: per Hypoglycemia Standing Ord. Docusate Sodium (Docusate Sodium 100 Mg Capsule) 100 mg PO DAILY PRN PRN Reason: Constipation Gemfibrozil (Gemfibrozil 600 Mg Tablet) 600 mg PO BID [facility] Last Admin: 04/16/21 07:43 Dose: 600 mg Documented by: KIRSTY Glucose (Glucose Gel 15 Gm Gel..Gram.) 15 gm PO Q15M PRN; Protocol PRN Reason: per Hypoglycemia Standing Ord. Hydralazine HCl (Hydralazine Hcl 50 Mg Tablet) 100 mg PO BID [facility]; Protocol Last Admin: 04/16/21 07:42 Dose: 100 mg Documented by: KIRSTY Ceftriaxone Sodium 1 gm/ (Sodium Chloride) 50 mls @ 100 mls/hr IV Q24H [facility] Last Infusion: 04/15/21 12:06 Dose: 0 mls/hr Documented by: GRIS Doxycycline Hyclate 100 mg/ (Sodium Chloride) 250 mls @ 166.67 mls/hr IV Q12H [facility] Last Infusion: 04/16/21 04:07 Dose: 0 mls/hr Documented by: JYOTI Lactated Ringer's (Lr) 1,000 mls @ 80 mls/hr IVCONT .[id number] [facility] Last Admin: 04/16/21 07:42 Dose: 80 mls/hr Documented by: KISRTY Insulin Glargine (Insulin Glargine,Hum.Rec.Anlog 100 Unit/Ml 10 Ml Vial) 70 unit SUBCUT DAILY [facility] Last Admin: 04/16/21 10:18 Dose: 70 unit Documented by: KIRSTY Insulin Human Lispro (Insulin Lispro 100 Unit/Ml 3 Ml Vial) 0 unit SUBCUT QIDACHS [facility]; Protocol Last Admin: 04/16/21 07:41 Dose: 2 unit Documented by: KIRSTY Metoprolol Succinate (Metoprolol Succinate Er 100 Mg Tab.Er.24h) 100 mg PO BID [facility]; Protocol Last Admin: 04/16/21 07:43 Dose: 100 mg Documented by: KIRSTY Omeprazole (Omeprazole 20 Mg Capsule.Dr) 20 mg PO DAILY@0630 [facility] Last Admin: 04/16/21 05:43 Dose: 20 mg Documented by: JYOTI Ondansetron HCl (Ondansetron Hcl 4 Mg/2 Ml Vial) 4 mg IVPUSH Q8H PRN PRN Reason: Nausea and Vomiting Pharmacy Consult (Consult Rx Perform Med Rec) 1 each MISCELLANE ONCE PRN PRN Reason: Consult order Sodium Chloride (0.9 % Sodium Chloride Flush 3 Ml Syringe) 3 ml IVFLUSH QSHIFT [facility] Last Admin: 04/16/21 07:43 Dose: 3 ml Documented by: KIRSTY <LIZBETH Sanchez - Last Filed: 04/16/21 11:20> Labs CBC & Chem 7: : 04/17/21 07:53 04/17/21 07:53 <LIZBETH Sanchez - Last Filed: 04/16/21 11:20> Labs: Laboratory Results - last 24 hr 04/15/21 04/15/21 04/15/21 07:19 13:11 13:15 MCV MCH MCHC RDW Plt Count MPV Immature Gran % (Auto) Neut % (Auto) Lymph % (Auto) [place] % (Auto) Eos % (Auto) Baso % (Auto) Lymph # (Auto) [place] # (Auto) Eos # (Auto) Baso # (Auto) Abs Immat Gran (auto) Absolute Neuts (auto) Absolute Nucleated RBC Nucleated RBC % (auto) Smear Tech's Comments Anion Gap Estim Creat Clear Calc Estimated GFR POC Glucose 258 H Random Glucose Lactic Acid 1.8 Calcium Total Bilirubin 0.7 Direct Bilirubin 0.4 AST 39 H ALT 25 Alkaline Phosphatase 124 H Total Protein 6.2 L Albumin 3.8 Respiratory Panel [place] Adenovirus (Rapid PCR) B.pert (TEM-PCR) B.parapertussis DNA PCR C. pneumoniae DNA (PCR) Coronavirus OC43 (PCR) Coronavirus HKU1 (PCR) Coronavirus 229E (PCR) Coronavirus NL63 (PCR) Human Metapneumovir PCR Influenza A (RT-PCR) Influenza B (RT-PCR) M. pneumoniae (PCR) Parainfluenza 1 (PCR) Parainfluenza 2 (PCR) Parainfluenza 3 (PCR) Parainfluenza 4 (PCR) RSV (PCR) Entero/Rhino (PCR) SARS-CoV-2 RNA (RT-PCR) 04/15/21 04/15/21 04/15/21 16:33 20:35 23:28 MCV MCH MCHC RDW Plt Count MPV Immature Gran % (Auto) Neut % (Auto) Lymph % (Auto) [place] % (Auto) Eos % (Auto) Baso % (Auto) Lymph # (Auto) [place] # (Auto) Eos # (Auto) Baso # (Auto) Abs Immat Gran (auto) Absolute Neuts (auto) Absolute Nucleated RBC Nucleated RBC % (auto) Smear Tech's Comments Anion Gap Estim Creat Clear Calc Estimated GFR POC Glucose 208 H 180 H 155 H Random Glucose Lactic Acid Calcium Total Bilirubin Direct Bilirubin AST ALT Alkaline Phosphatase Total Protein Albumin Respiratory Panel [place] Adenovirus (Rapid PCR) B.pert (TEM-PCR) B.parapertussis DNA PCR C. pneumoniae DNA (PCR) Coronavirus OC43 (PCR) Coronavirus HKU1 (PCR) Coronavirus 229E (PCR) Coronavirus NL63 (PCR) Human Metapneumovir PCR Influenza A (RT-PCR) Influenza B (RT-PCR) M. pneumoniae (PCR) Parainfluenza 1 (PCR) Parainfluenza 2 (PCR) Parainfluenza 3 (PCR) Parainfluenza 4 (PCR) RSV (PCR) Entero/Rhino (PCR) SARS-CoV-2 RNA (RT-PCR) 04/16/21 04/16/21 04/16/21 05:40 05:40 05:40 MCV 92.3 MCH 29.7 MCHC 32.2 RDW 14.3 Plt Count 181 MPV 11.1 Immature Gran % (Auto) 0.6 H Neut % (Auto) 84.2 H Lymph % (Auto) 5.5 L [place] % (Auto) 9.3 Eos % (Auto) 0.2 Baso % (Auto) 0.2 Lymph # (Auto) 1.0 L [place] # (Auto) 1.6 H Eos # (Auto) 0.0 Baso # (Auto) 0.0 Abs Immat Gran (auto) 0.10 H Absolute Neuts (auto) 14.6 H Absolute Nucleated RBC 0.000 Nucleated RBC % (auto) 0.0 Smear Tech's Comments VERIFIED Anion Gap 14 Estim Creat Clear Calc 33.4 Estimated GFR 28 POC Glucose Random Glucose 166 H Lactic Acid Calcium 8.8 Total Bilirubin Direct Bilirubin AST ALT Alkaline Phosphatase Total Protein Albumin Respiratory Panel [place] See Note Adenovirus (Rapid PCR) Not Detected B.pert (TEM-PCR) Not Detected B.parapertussis DNA PCR Not Detected C. pneumoniae DNA (PCR) Not Detected Coronavirus OC43 (PCR) Not Detected Coronavirus HKU1 (PCR) Not Detected Coronavirus 229E (PCR) Not Detected Coronavirus NL63 (PCR) Not Detected Human Metapneumovir PCR Not Detected Influenza A (RT-PCR) Not Detected Influenza B (RT-PCR) Not Detected M. pneumoniae (PCR) Not Detected Parainfluenza 1 (PCR) Not Detected Parainfluenza 2 (PCR) Not Detected Parainfluenza 3 (PCR) Not Detected Parainfluenza 4 (PCR) Not Detected RSV (PCR) Not Detected Entero/Rhino (PCR) Not Detected SARS-CoV-2 RNA (RT-PCR) Not Detected 04/16/21 07:15 MCV MCH MCHC RDW Plt Count MPV Immature Gran % (Auto) Neut % (Auto) Lymph % (Auto) [place] % (Auto) Eos % (Auto) Baso % (Auto) Lymph # (Auto) [place] # (Auto) Eos # (Auto) Baso # (Auto) Abs Immat Gran (auto) Absolute Neuts (auto) Absolute Nucleated RBC Nucleated RBC % (auto) Smear Tech's Comments Anion Gap Estim Creat Clear Calc Estimated GFR POC Glucose 163 H Random Glucose Lactic Acid Calcium Total Bilirubin Direct Bilirubin AST ALT Alkaline Phosphatase Total Protein Albumin Respiratory Panel [place] Adenovirus (Rapid PCR) B.pert (TEM-PCR) B.parapertussis DNA PCR C. pneumoniae DNA (PCR) Coronavirus OC43 (PCR) Coronavirus HKU1 (PCR) Coronavirus 229E (PCR) Coronavirus NL63 (PCR) Human Metapneumovir PCR Influenza A (RT-PCR) Influenza B (RT-PCR) M. pneumoniae (PCR) Parainfluenza 1 (PCR) Parainfluenza 2 (PCR) Parainfluenza 3 (PCR) Parainfluenza 4 (PCR) RSV (PCR) Entero/Rhino (PCR) SARS-CoV-2 RNA (RT-PCR) <LIZBETH Sanchez - Last Filed: 04/16/21 11:20> Microbiology Microbiology Results: Microbiology 04/14/21 12:24 Blood Culture - Preliminary Blood - Venous No growth after 24 hours. 04/14/21 12:26 Blood Culture - Preliminary Blood - Venous No growth after 24 hours. <LIZBETH Sanchez - Last Filed: 04/16/21 11:20> Assessment and Plan (1) Fever: Status: Acute <LIZBETH Sanchez - Last Filed: 04/16/21 11:20> (2) DOMENICO (acute kidney injury): Status: Acute <LIZBETH Sanchez - Last Filed: 04/16/21 11:20> (3) Acute urinary retention: Status: Acute <LIZBETH Sanchez Last Filed: 04/16/21 11:20> Assessment and Plan: this is a 76 year old male with history of DM, CAD s/p CABG, carotid stenosis s/p left CEA, HTN, HLD, CKD3, PVD among others who presents to the ED with two days of chills and feeling lightheaded found to have DOMENICO Fever afebrile overnight, WBC jumped up to 17.5 CT abdomen, CXR with no source of infection, repeat UA negative covid negative, RPP negative lactic acid negative; BCx negative continue empiric ceftriaxone, doxycycline ID consult pending DOMENICO on CKD3 creatinine jumped up to 2.27, possibly related to blood clots/mayo not draining yesterday no obstruction on CT from admission hold Aldactone, HCTZ, olmesartan gentle IVF follow BMP, if no improvement in AM consider nephro consult urinary retention mayo placed on admission outpatient urology follow up hematuria ?r/t traumatic mayo placement, mayo changed by urology. hematuria resolved will hold asa, plavix DM reports episodes of hypoglycemia, has been taking his Lantus daily instead of bid and decreasing dose of lispro last HbA1c reportedly 6.2 continue Lantus daily SSI, POCs, ADA diet HTN continue hydralazine, norvasc and metoprolol hold aldactone, HCTZ, olmesartan for DOMENICO monitor BP closely CAD continue statin, BB asa/plavix on hold for hematuria HLD continue lopid, statin gerd continue omeprazole code status - full code dvt ppx - heparin d/c for hematuria; mechanical devices attending - dr. Greene <LIZBETH Sanchez - Last Filed: 04/16/21 11:20> Quality Stroke Does the patient have a stroke diagnosis?: No <LIZBETH Sanchez - Last Filed: 04/16/21 11:20> VTE Prior VTE?: No <LIZBETH Sanchez - Last Filed: 04/16/21 11:20> VTE Risk Level:: Medical - moderate - high <LIZBETH Sanchez - Last Filed: 04/16/21 11:20> VTE Device Contraindication: N/A - Device Ordered <LIZBETH Sanchez - Last Filed: 04/16/21 11:20> VTE Drug Contraindication: N/A - Med Ordered <LIZBETH Sanchez - Last Filed: 04/16/21 11:20>
[2021-04-16] MEDS: cefTRIAXone sodium 1 GM in 0.9 % Sodium Chloride 50 ML IV (11:34)
[2021-04-16 11:44] LABS: Glucose, Whole Blood 223 mg/dL (60-115)
[2021-04-16 16:46] LABS: Glucose, Whole Blood 189 mg/dL (60-115)
[2021-04-16 20:45] LABS: Glucose, Whole Blood 254 mg/dL (60-115)
--- NOTE | 2021-04-16 21:10 | W.PM.IDCN ---
History of Present Illness Data of Consult Service Date: 04/15/21 Requesting physician: Quin Mcarthur Primary Care Provider: Elías Arce MD HPI Reason for consult: fever and shaking chills He presents with shortness of breath and cough for last week. He has fever over 101 over last day. 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 CAD (coronary artery disease) Chronic kidney disease, stage 3 CVA (cerebral vascular accident) Diabetes H/O cataract Hepatitis C High cholesterol HTN (hypertension) Hyperlipidemia Peripheral vascular disease Family History Family History Other CAD (coronary artery disease) Family history: reviewed and not pertinent Surgical History Surgical History (Updated 04/19/21 @ 10:13 by Dakota Maharaj MD) History of ankle surgery History of esophagogastroduodenoscopy (EGD) Hx of colonoscopy S/P CABG (coronary artery bypass graft) (~2006) S/P carotid endarterectomy (~08/2018) Social History Social History (Updated 04/14/21 @ 11:26 by Joyce Coombs DO) Household Members: Spouse Housing: House Do you presently have visiting nurse or other home services: No Alcohol intake: never Patient Tobacco Use Status: Never used Tobacco e-Cigarette/Vaping Use: Never Used Substance Use Type: Marijuana Advance Directives Date on File: 04/15/21 service: No Current occupational status: retired Meds Allergies Allergy/AdvReac Type Severity Reaction Status Date / Time No Known Allergies Allergy Verified 01/07/21 09:26 [No Known Allergies*] Active Medications: Current Medications Acetaminophen (Acetaminophen 325 Mg Tablet) 650 mg PO Q6H PRN PRN Reason: Pain, Mild (Pain Scale 1-3) Last Admin: 04/15/21 10:49 Dose: 650 mg Documented by: Amlodipine Besylate (Amlodipine Besylate 10 Mg Tablet) 10 mg PO DAILY [facility]; Protocol Last Admin: 04/16/21 07:43 Dose: 10 mg Documented by: Aspirin (Aspirin Enteric Coated 81 Mg Tablet.) 81 mg PO DAILY [facility] Last Admin: 04/15/21 09:09 Dose: 81 mg Documented by: Atorvastatin Calcium (Atorvastatin Calcium 40 Mg Tablet) 40 mg PO BEDTIME [facility] Last Admin: 04/15/21 23:16 Dose: 40 mg Documented by: Clopidogrel Bisulfate (Clopidogrel Bisulfate 75 Mg Tablet) 75 mg PO DAILY [facility] Last Admin: 04/15/21 09:09 Dose: 75 mg Documented by: Dextrose (Dextrose 50 % 25 Gm/50 Ml Vial) 25 gm IVPUSH Q15M PRN; Protocol PRN Reason: per Hypoglycemia Standing Ord. Docusate Sodium (Docusate Sodium 100 Mg Capsule) 100 mg PO DAILY PRN PRN Reason: Constipation Gemfibrozil (Gemfibrozil 600 Mg Tablet) 600 mg PO BID [facility] Last Admin: 04/16/21 07:43 Dose: 600 mg Documented by: Glucose (Glucose Gel 15 Gm Gel..Gram.) 15 gm PO Q15M PRN; Protocol PRN Reason: per Hypoglycemia Standing Ord. Hydralazine HCl (Hydralazine Hcl 50 Mg Tablet) 100 mg PO BID [facility]; Protocol Last Admin: 04/16/21 07:42 Dose: 100 mg Documented by: Ceftriaxone Sodium 1 gm/ (Sodium Chloride) 50 mls @ 100 mls/hr IV Q24H [facility] Last Infusion: 04/16/21 13:26 Dose: Infused Documented by: Doxycycline Hyclate 100 mg/ (Sodium Chloride) 250 mls @ 166.67 mls/hr IV Q12H [facility] Last Infusion: 04/16/21 16:09 Dose: Infused Documented by: Lactated Ringer's (Lr) 1,000 mls @ 80 mls/hr IVCONT .[id number] [facility] Last Admin: 04/16/21 21:09 Dose: 80 mls/hr Documented by: Insulin Glargine (Insulin Glargine,Hum.Rec.Anlog 100 Unit/Ml 10 Ml Vial) 70 unit SUBCUT DAILY [facility] Last Admin: 04/16/21 10:18 Dose: 70 unit Documented by: Insulin Human Lispro (Insulin Lispro 100 Unit/Ml 3 Ml Vial) 0 unit SUBCUT QIDACHS [facility]; Protocol Last Admin: 04/16/21 17:45 Dose: 2 unit Documented by: Metoprolol Succinate (Metoprolol Succinate Er 100 Mg Tab.Er.24h) 100 mg PO BID [facility]; Protocol Last Admin: 04/16/21 07:43 Dose: 100 mg Documented by: Omeprazole (Omeprazole 20 Mg Sandra.) 20 mg PO DAILY@0630 [facility] Last Admin: 04/16/21 05:43 Dose: 20 mg Documented by: Ondansetron HCl (Ondansetron Hcl 4 Mg/2 Ml Vial) 4 mg IVPUSH Q8H PRN PRN Reason: Nausea and Vomiting Pharmacy Consult (Consult Rx Perform Med Rec) 1 each MISCELLANE ONCE PRN PRN Reason: Consult order Sodium Chloride (0.9 % Sodium Chloride Flush 3 Ml Syringe) 3 ml IVFLUSH QSHIFT [facility] Last Admin: 04/16/21 16:11 Dose: 3 ml Documented by: Home Medications Medication Instructions Recorded Confirmed Last Taken Type amlodipine 10 mg tablet 1 tab PO DAILY 04/22/20 04/14/21 04/14/21 History atorvastatin 40 mg tablet 1 tab PO BEDTIME 04/22/20 04/14/21 04/14/21 History clopidogrel 75 mg tablet 1 tab PO DAILY 04/22/20 04/14/21 04/14/21 History insulin glargine 100 unit/mL 70 unit SUBCUT BID 04/22/20 04/14/21 04/14/21 History subcutaneous solution (Lantus U-100 Insulin) insulin lispro 100 unit/mL 30 unit SUBCUT TID 04/22/20 04/14/21 04/14/21 History subcutaneous solution metoprolol succinate 200 mg 100 mg PO BID 04/22/20 04/14/21 04/14/21 History tablet,extended release 24 hr olmesartan 40 mg tablet 1 tab PO DAILY 04/22/20 04/14/21 04/14/21 History spironolactone 25 1 tab PO DAILY 04/22/20 04/14/21 04/14/21 History mg-hydrochlorothiazide 25 mg tablet aspirin 81 mg tablet,delayed 81 mg PO DAILY 05/19/20 04/14/21 04/14/21 History release (Adult Low Dose Aspirin) gemfibrozil 600 mg tablet 600 mg PO BID 05/19/20 04/14/21 04/14/21 History hydralazine 100 mg tablet 100 mg PO BID tab 05/19/20 04/14/21 04/14/21 History omeprazole 20 mg capsule,delayed 1 cap PO DAILY 05/24/20 04/14/21 04/14/21 History release insulin syringe-needle U-100 1 mL #10 ea 09/21/20 Unknown History 28 gauge x 1/2 docosahexaenoic acid (dha)-epa 1 cap PO DAILY 04/14/21 04/14/21 04/14/21 History capsule Physical Exam Vital Signs: Vital Signs: Last Vital Signs Temp 98.2 F 04/16/21 19:35 Pulse 65 04/16/21 19:35 Resp 18 04/16/21 19:35 BP 152/67 H 04/16/21 19:35 Pulse Ox 94 04/16/21 19:35 BMI result Body Mass Index 33.0 Const: General: cooperative Eyes: General: appearance normal, both eyes and all related structures Resp: Effort & Inspection: normal respiratory effort Cardio: Rate: regular rate Rhythm: regular rhythm Peripheral pulses: Peripheral pulses 2+ throughout GI: Palpation (GI): Soft to palpation and nontender Skin: General skin exam: no rashes or lesions noted Results Labs CBC & Chem 7: 04/19/21 05:26 04/19/21 05:26 Labs: Short CBC 04/16/21 Range/Units 05:40 WBC 17.3 H (4.8-10.8) X10*3/uL Hgb 9.3 L (14.0-18.0) g/dl Hct 28.9 L (42.0-52.0) % Plt Count 181 (160-400) X10*3/uL BMP 04/16/21 05:40 Sodium 136 Potassium 4.2 Chloride 105 Carbon Dioxide 21 L BUN 47 H D Creatinine 2.27 H Calcium 8.8 Microbiology Microbiology Results: Microbiology 04/14/21 12:24 Blood - Venous Blood Culture - Preliminary No growth after 48 hours. 04/14/21 12:26 Blood - Venous Blood Culture - Preliminary No growth after 48 hours. Assessment and Plan (1) Difficult Marques catheter placement: Status: Acute He has shortnss of breath and cough over last week. He has had traumatic Marques which has bled (2) Amputation of left great toe: Status: Acute (3) Iron deficiency anemia due to chronic blood loss: Status: Acute Continue Ceftriaxone and Doxyccyline ,may change po Ceftin and Doxyucycline for a week
[2021-04-16] MEDS: Atorvastatin Calcium 40 MG TABLET PO (21:12)
[2021-04-17] VITALS (8 sets, daily range): BP systolic 150–183; BP diastolic 64–99; PULSE 68–93; RESP 16–18; TEMP 36.3–37.1; O2SAT 93–95
[2021-04-17] MEDS: Doxycycline Hyclate 100 MG in 0.9 % Sodium Chloride 250 ML 166.67 MG IV ×2 (01:01→12:30)
[2021-04-17] MEDS: 0.9 % Sodium Chloride Flush 3 ML SYRINGE IVFLUSH (01:02)
[2021-04-17] MEDS: traZODone HCL 25 MG HALFTAB PO (01:52)
[2021-04-17] MEDS: Omeprazole 20 MG CAPSULE.DR PO (05:55)
[2021-04-17 07:43] LABS: Glucose, Whole Blood 207 mg/dL (60-115)
[2021-04-17 07:58] LABS: MANUAL DIFF FLAG NO
[2021-04-17 08:00] LABS: Basophils Percent Auto 0.3 % (0-2); Eosinophils Absolute Auto 0.1 X10*3/uL (0.0-0.4); Eosinophils Percent Auto 1.1 % (0-4); Hematocrit 29.3 % (42.0-52.0); Hemoglobin 9.4 g/dl (14.0-18.0); Imm Gran Abs Auto 0.06 X10*3/uL (0.00-0.03); Imm Gran Pct Auto 0.5 % (0.0-0.4); Lymphocytes Absolute Auto 0.6 X10*3/uL (1.2-4.9); Lymphocytes Percent Auto 4.8 % (20-40); Mean Corpuscular HGB Conc 32.1 g/dl (31.0-36.0); Mean Corpuscular Hemoglobin 29.4 pg (27.0-33.0); Mean Corpuscular Volume 91.6 fL (80.0-98.0); Monocytes Absolute Auto 0.9 X10*3/uL (0.1-1.2); Monocytes Percent Auto 7.7 % (2-11); Neutrophils Absolute Auto 9.9 x10*3/uL (2.0-8.3); Neutrophils Percent Auto 85.6 % (45-73); Platelet Count 175 X10*3/uL (160-400); White Blood Count 11.6 X10*3/uL (4.8-10.8)
[2021-04-17] MEDS: Insulin Lispro 100 UNIT/ML 3 ML VIAL SUBCUT ×4 (08:03→20:51)
[2021-04-17] MEDS: hydrALAZINE HCl 50 MG TABLET 100 MG PO ×3 (08:03→20:53)
[2021-04-17] MEDS: Metoprolol Succinate ER 100 MG TAB.ER.24H PO ×2 (08:03→20:52)
[2021-04-17] MEDS: amLODIPine Besylate 10 MG TABLET PO (08:03)
[2021-04-17 08:19] LABS: Anion Gap 14 (12-20); Blood Urea Nitrogen 54 mg/dL (9-16); Carbon Dioxide 19 mmol/L (22-29); Chloride 107 mmol/L (96-108); Creatinine Clr Calc Pharmacy 45.5; Estimated Glomerular Filt Rate 40; Glucose Random 215 mg/dL (60-115); Potassium 4.2 mmol/L (3.3-5.1); Sodium 136 mmol/L (135-145)
[2021-04-17] MEDS: Insulin Glargine,Hum.rec.anlog 100 UNIT/ML 10 ML VIAL 70 UNIT SUBCUT (09:36)
[2021-04-17] MEDS: gemfibroziL 600 MG TABLET PO ×2 (09:36→20:52)
[2021-04-17] MEDS: Lactated Ringers 1,000 ML 80 ML IVCONT ×2 (09:36→22:26)
[2021-04-17 11:41] LABS: Glucose, Whole Blood 221 mg/dL (60-115)
[2021-04-17] MEDS: cefTRIAXone sodium 1 GM in 0.9 % Sodium Chloride 50 ML IV (11:43)
--- NOTE | 2021-04-17 11:52 | P.PNIM_ITS ---
Subjective Subjective Date of Service: 04/17/21 Interval History: seen and examined this morning follow up for fever, DOMENICO still not feeling well began having diarrhea - has been followed by GI for past 1 year for intermittent diarrhea no abdominal pain, nausea or diarrhea Review of Systems Review of Systems: Yes all other systems are reviewed and are negative Constitutional Constitutional: Denies chills, Denies fever(s), Reports lethargy and Reports weakness Cardiovascular Cardiovascular: Denies chest pain and Denies dyspnea Respiratory Respiratory: Denies chest congestion, Denies cough and Denies dyspnea Gastrointestinal Gastrointestinal: Denies abdominal pain, Reports diarrhea, Denies nausea and Denies vomiting Neurologic Neurologic: Reports weakness Physical Exam Verdana 4l Vital Signs: Verdana 4d Verdana 4d Vital Signs: Verdana 4d Verdana 4Bd Last Vital Signs Verdana 4d Licensed Insurance Sales Agent New 4d Licensed Insurance Sales Agent New 4d Temp 97.6 F 04/17/21 07:19 Licensed Insurance Sales Agent New 4d Pulse 68 04/17/21 07:19 Licensed Insurance Sales Agent NewNew 4d Resp 18 04/17/21 07:19 BP 183/67 H 04/17/21 07:19 Pulse Ox 94 04/17/21 07:19 BMI result Body Mass Index 33.0 Const: General: cooperative, comfortable, no acute distress, alert, awake and tired appearing Nutritional Appearance: overweight Orientation/consciousness: patient oriented x3 HENMT: Head: Yes normocephalic and Yes atraumatic Eyes: Sclerae: sclerae normal Pupils: Equal, round and reactive pupils present Resp: Effort & Inspection: normal respiratory effort and no respiratory distress Cardio: Rate: regular rate Rhythm: regular rhythm GI: Inspection: No distended Palpation (GI): Soft to palpation and nontender : Other: mayo draining yellow urine General: No no CVA tenderness Back/Spine/Pelvis: Back: No no CVA tenderness Neuro: General: patient oriented x3 Cranial nerves: Yes CN's II-XII intact bilaterally, Yes Equal, round and reactive pupils present and Yes Bilaterally intact EOM present Extrem: Other: no leg edema; able to move all 4 extremities spontaneously Objective Data Active Medications Acetaminophen (Acetaminophen 325 Mg Tablet) 650 mg PO Q6H PRN PRN Reason: Pain, Mild (Pain Scale 1-3) Last Admin: 04/15/21 10:49 Dose: 650 mg Documented by: ERNESTINE Amlodipine Besylate (Amlodipine Besylate 10 Mg Tablet) 10 mg PO DAILY [facility]; Protocol Last Admin: 04/17/21 08:03 Dose: 10 mg Documented by: KIRSTY Aspirin (Aspirin Enteric Coated 81 Mg Tablet.Dr) 81 mg PO DAILY [facility] Last Admin: 04/15/21 09:09 Dose: 81 mg Documented by: GRIS Atorvastatin Calcium (Atorvastatin Calcium 40 Mg Tablet) 40 mg PO BEDTIME [facility] Last Admin: 04/16/21 21:12 Dose: 40 mg Documented by: PILLO Clopidogrel Bisulfate (Clopidogrel Bisulfate 75 Mg Tablet) 75 mg PO DAILY [facility] Last Admin: 04/15/21 09:09 Dose: 75 mg Documented by: GRIS Dextrose (Dextrose 50 % 25 Gm/50 Ml Vial) 25 gm IVPUSH Q15M PRN; Protocol PRN Reason: per Hypoglycemia Standing Ord. Docusate Sodium (Docusate Sodium 100 Mg Capsule) 100 mg PO DAILY PRN PRN Reason: Constipation Gemfibrozil (Gemfibrozil 600 Mg Tablet) 600 mg PO BID [facility] Last Admin: 04/17/21 09:36 Dose: 600 mg Documented by: KIRSTY Glucose (Glucose Gel 15 Gm Gel..Gram.) 15 gm PO Q15M PRN; Protocol PRN Reason: per Hypoglycemia Standing Ord. Hydralazine HCl (Hydralazine Hcl 50 Mg Tablet) 100 mg PO BID [facility]; Protocol Last Admin: 04/17/21 08:03 Dose: 100 mg Documented by: KIRSTY Ceftriaxone Sodium 1 gm/ (Sodium Chloride) 50 mls @ 100 mls/hr IV Q24H [facility] Last Admin: 04/17/21 11:43 Dose: 100 mls/hr Documented by: KIRSTY Doxycycline Hyclate 100 mg/ (Sodium Chloride) 250 mls @ 166.67 mls/hr IV Q12H [facility] Last Infusion: 04/17/21 02:38 Dose: 0 mls/hr Documented by: ASHLEY Lactated Ringer's (Lr) 1,000 mls @ 80 mls/hr IVCONT .[id number] [facility] Last Admin: 04/17/21 09:36 Dose: 80 mls/hr Documented by: KIRSTY Insulin Glargine (Insulin Glargine,Hum.Rec.Anlog 100 Unit/Ml 10 Ml Vial) 70 unit SUBCUT DAILY [facility] Last Admin: 04/17/21 09:36 Dose: 1 unit Documented by: KIRSTY Insulin Human Lispro (Insulin Lispro 100 Unit/Ml 3 Ml Vial) 0 unit SUBCUT QIDACHS [facility]; Protocol Last Admin: 04/17/21 11:42 Dose: 4 unit Documented by: KIRSTY Metoprolol Succinate (Metoprolol Succinate Er 100 Mg Tab.Er.24h) 100 mg PO BID [facility]; Protocol Last Admin: 04/17/21 08:03 Dose: 100 mg Documented by: KIRSTY Omeprazole (Omeprazole 20 Mg Capsule.Dr) 20 mg PO DAILY@0630 [facility] Last Admin: 04/17/21 05:55 Dose: 20 mg Documented by: MOHAN Ondansetron HCl (Ondansetron Hcl 4 Mg/2 Ml Vial) 4 mg IVPUSH Q8H PRN PRN Reason: Nausea and Vomiting Pharmacy Consult (Consult Rx Perform Med Rec) 1 each MISCELLANE ONCE PRN PRN Reason: Consult order Sodium Chloride (0.9 % Sodium Chloride Flush 3 Ml Syringe) 3 ml IVFLUSH QSHIFT [facility] Last Admin: 04/17/21 08:04 Dose: Not Given Documented by: KIRSTY Non-Admin Reason: IV Running Labs CBC & Chem 7: 04/17/21 07:53 04/17/21 07:53 Labs: Laboratory Results - last 24 hr 04/16/21 04/16/21 04/17/21 16:42 19:38 07:20 MCV MCH MCHC RDW Plt Count MPV Immature Gran % (Auto) Neut % (Auto) Lymph % (Auto) [place] % (Auto) Eos % (Auto) Baso % (Auto) Lymph # (Auto) [place] # (Auto) Eos # (Auto) Baso # (Auto) Abs Immat Gran (auto) Absolute Neuts (auto) Absolute Nucleated RBC Nucleated RBC % (auto) Anion Gap Estim Creat Clear Calc Estimated GFR POC Glucose 189 H 254 H 207 H Random Glucose Calcium 04/17/21 04/17/21 04/17/21 07:53 07:53 11:31 MCV 91.6 MCH 29.4 MCHC 32.1 RDW 14.0 Plt Count 175 MPV 11.0 Immature Gran % (Auto) 0.5 H Neut % (Auto) 85.6 H Lymph % (Auto) 4.8 L [place] % (Auto) 7.7 Eos % (Auto) 1.1 Baso % (Auto) 0.3 Lymph # (Auto) 0.6 L [place] # (Auto) 0.9 Eos # (Auto) 0.1 Baso # (Auto) 0.0 Abs Immat Gran (auto) 0.06 H Absolute Neuts (auto) 9.9 H Absolute Nucleated RBC 0.000 Nucleated RBC % (auto) 0.0 Anion Gap 14 Estim Creat Clear Calc 45.5 Estimated GFR 40 POC Glucose 221 H Random Glucose 215 H Calcium 9.0 Microbiology Microbiology Results: Microbiology 04/14/21 12:24 Blood Culture - Preliminary Blood - Venous No growth after 48 hours. 04/14/21 12:26 Blood Culture - Preliminary Blood - Venous No growth after 48 hours. Assessment and Plan (1) Difficult Mayo catheter placement: Status: Acute (2) Fever: Status: Acute (3) DOMENICO (acute kidney injury): Status: Acute (4) Acute urinary retention: Status: Acute Assessment and Plan: this is a 76 year old male with history of DM, CAD s/p CABG, carotid stenosis s/p left CEA, HTN, HLD, CKD3, PVD among others who presents to the ED with two days of chills and feeling lightheaded found to have DOMENICO Fever afebrile overnight, WBC improving CT abdomen, CXR with no source of infection, repeat UA negative covid negative, RPP negative lactic acid negative; BCx negative now with some diarrhea (has had intermittent diarrhea over the past 1 year, followed by Dr. Chavez) -- will check cdif seen by ID, recommend to continue empiric ceftriaxone, doxycycline (ceftin and doxy on d/c) for 7 days DOMENICO on CKD3 creatinine down to 1.67 jump up on 04/16 likely from hematuria/blood clots/mayo not functioning well no obstruction on CT from admission hold Aldactone, HCTZ, olmesartan gentle IVF follow BMP urinary retention mayo placed on admission difficult cath, had some hematuria and bleeding around mayo. required urology to replace mayo recommend to keep mayo in place for minimum 3-5 days (new mayo placed 04/15) outpatient urology follow up hematuria ?r/t traumatic mayo placement, mayo changed by urology. had some mild bleeding around mayo overnight, none this morning will hold asa, plavix DM reports episodes of hypoglycemia, has been taking his Lantus daily instead of bid and decreasing dose of lispro last HbA1c reportedly 6.2 continue Lantus daily SSI, POCs, ADA diet HTN BP uncontrolled increase dose of hydralazine to tid continue norvasc and metoprolol hold aldactone, HCTZ, olmesartan for DOMENICO monitor BP closely CAD continue statin, BB asa/plavix on hold for hematuria HLD continue lopid, statin gerd continue omeprazole code status - full code dvt ppx - heparin d/c for hematuria; mechanical devices attending - dr. Greene Quality Stroke Does the patient have a stroke diagnosis?: No VTE Prior VTE?: No VTE Risk Level:: Medical - moderate - high VTE Device Contraindication: N/A - Device Ordered VTE Drug Contraindication: N/A - Med Ordered
--- NOTE | 2021-04-17 15:51 | MHC.CM.PN ---
PATIENT NOT CLINICALLY READY FOR DISCHARGE. NOW CHECKING FOR C-DIF CASE MANAGEMENT STILL FOLLOWING.
[2021-04-17 16:33] LABS: Glucose, Whole Blood 209 mg/dL (60-115)
[2021-04-17 20:13] LABS: Glucose, Whole Blood 203 mg/dL (60-115)
[2021-04-17] MEDS: Melatonin 3 MG TABLET PO (20:52)
[2021-04-17] MEDS: Atorvastatin Calcium 40 MG TABLET PO (20:52)
[2021-04-18] VITALS (7 sets, daily range): BP systolic 158–188; BP diastolic 63–79; PULSE 60–80; RESP 17–22; TEMP 36.2–36.8; O2SAT 92–95
[2021-04-18] MEDS: Doxycycline Hyclate 100 MG in 0.9 % Sodium Chloride 250 ML 166.67 MG IV ×2 (00:50→14:15)
[2021-04-18] MEDS: 0.9 % Sodium Chloride Flush 3 ML SYRINGE IVFLUSH ×3 (00:51→21:03)
--- NOTE | 2021-04-18 01:30 | PC.NURSE ---
Addendum entered by Ayala Crystal RN 04/18/21 02:06: mayo draining yellow despite bleeding from urethra Addendum entered by Ayala Crystal RN 04/18/21 01:39: Mild bleeding from around mayo insertion site Original Note: Patient oob to commode for BM. c/o feeling SOB. O2 95% room air.
--- NOTE | 2021-04-18 02:26 | PC.NURSE ---
Patient has been resting in bed and states SOB has improved but not completely resolved. He states that he believes he may have mild COPD although not in his history. Patient states he occasionally uses his 's inhaler at home.
[2021-04-18 04:49] LABS: MANUAL DIFF FLAG NO
[2021-04-18 04:58] LABS: Basophils Percent Auto 0.4 % (0-2); Eosinophils Absolute Auto 0.1 X10*3/uL (0.0-0.4); Eosinophils Percent Auto 0.6 % (0-4); Hematocrit 29.4 % (42.0-52.0); Hemoglobin 9.4 g/dl (14.0-18.0); Imm Gran Pct Auto 0.9 % (0.0-0.4); Lymphocytes Absolute Auto 0.9 X10*3/uL (1.2-4.9); Lymphocytes Percent Auto 8.4 % (20-40); Mean Corpuscular Hemoglobin 29.6 pg (27.0-33.0); Mean Corpuscular Volume 92.5 fL (80.0-98.0); Mean Platelet Volume 11.5 fL (9.4-12.4); Monocytes Absolute Auto 1.1 X10*3/uL (0.1-1.2); Neutrophils Absolute Auto 8.6 x10*3/uL (2.0-8.3); Neutrophils Percent Auto 79.7 % (45-73); Platelet Count 202 X10*3/uL (160-400); Red Blood Count 3.18 X10*6/uL (4.60-5.80); Red Cell Distribution Width 13.9 % (11.0-16.0); White Blood Count 10.8 X10*3/uL (4.8-10.8)
[2021-04-18 05:06] LABS: Anion Gap 13 (12-20); Blood Urea Nitrogen 45 mg/dL (9-16); Carbon Dioxide 18 mmol/L (22-29); Chloride 110 mmol/L (96-108); Creatinine Clr Calc Pharmacy 54.6; Estimated Glomerular Filt Rate 50; Glucose Random 171 mg/dL (60-115); Potassium 4.3 mmol/L (3.3-5.1); Sodium 137 mmol/L (135-145)
[2021-04-18] MEDS: Omeprazole 20 MG CAPSULE.DR PO (06:58)
[2021-04-18 07:49] LABS: Glucose, Whole Blood 167 mg/dL (60-115)
[2021-04-18] MEDS: amLODIPine Besylate 10 MG TABLET PO (08:03)
[2021-04-18] MEDS: Metoprolol Succinate ER 100 MG TAB.ER.24H PO ×2 (08:03→21:02)
[2021-04-18] MEDS: gemfibroziL 600 MG TABLET PO ×2 (08:03→21:02)
[2021-04-18] MEDS: hydrALAZINE HCl 50 MG TABLET 100 MG PO ×3 (08:04→21:02)
[2021-04-18] MEDS: Insulin Lispro 100 UNIT/ML 3 ML VIAL SUBCUT ×4 (08:13→21:03)
[2021-04-18] MEDS: Insulin Glargine,Hum.rec.anlog 100 UNIT/ML 10 ML VIAL 70 UNIT SUBCUT (10:18)
--- NOTE | 2021-04-18 10:42 | P.PNIM_ITS ---
Subjective Subjective Date of Service: 04/18/21 Review of Systems Follow up fever no fevers or chills still with some diarrhea Denies chest pain, shortness breath nausea vomiting All other systems are reviewed and are negative Physical Exam Vital Signs: Vital Signs: Last Vital Signs Temp 98.2 F 04/18/21 07:37 Pulse 68 04/18/21 07:37 Resp 18 04/18/21 07:37 BP 188/79 H 04/18/21 07:37 Pulse Ox 92 04/18/21 07:37 BMI result Body Mass Index 33.0 Appearing in no acute distress lung sounds are clear to auscultation heart regular rate rhythm, clear S1, S2 positive bowel sounds, abdomen is soft, nontender neuro patient is alert x3, no focal deficits Objective Data Active Medications Acetaminophen (Acetaminophen 325 Mg Tablet) 650 mg PO Q6H PRN PRN Reason: Pain, Mild (Pain Scale 1-3) Last Admin: 04/15/21 10:49 Dose: 650 mg Documented by: ERNESTINE Amlodipine Besylate (Amlodipine Besylate 10 Mg Tablet) 10 mg PO DAILY [facility]; Protocol Last Admin: 04/18/21 08:03 Dose: 10 mg Documented by: KIRSTY Aspirin (Aspirin Enteric Coated 81 Mg Tablet.) 81 mg PO DAILY [facility] Last Admin: 04/15/21 09:09 Dose: 81 mg Documented by: GRIS Atorvastatin Calcium (Atorvastatin Calcium 40 Mg Tablet) 40 mg PO BEDTIME [facility] Last Admin: 04/17/21 20:52 Dose: 40 mg Documented by: PILLO Clopidogrel Bisulfate (Clopidogrel Bisulfate 75 Mg Tablet) 75 mg PO DAILY [facility] Last Admin: 04/15/21 09:09 Dose: 75 mg Documented by: GRIS Dextrose (Dextrose 50 % 25 Gm/50 Ml Vial) 25 gm IVPUSH Q15M PRN; Protocol PRN Reason: per Hypoglycemia Standing Ord. Docusate Sodium (Docusate Sodium 100 Mg Capsule) 100 mg PO DAILY PRN PRN Reason: Constipation Gemfibrozil (Gemfibrozil 600 Mg Tablet) 600 mg PO BID [facility] Last Admin: 04/18/21 08:03 Dose: 600 mg Documented by: KIRSTY Glucose (Glucose Gel 15 Gm Gel..Gram.) 15 gm PO Q15M PRN; Protocol PRN Reason: per Hypoglycemia Standing Ord. Hydralazine HCl (Hydralazine Hcl 50 Mg Tablet) 100 mg PO TID [facility]; Protocol Last Admin: 04/18/21 08:04 Dose: 100 mg Documented by: KIRSTY Ceftriaxone Sodium 1 gm/ (Sodium Chloride) 50 mls @ 100 mls/hr IV Q24H [facility] Last Infusion: 04/17/21 12:16 Dose: 100 mls/hr Documented by: KIRSTY Doxycycline Hyclate 100 mg/ (Sodium Chloride) 250 mls @ 166.67 mls/hr IV Q12H [facility] Last Infusion: 04/18/21 02:41 Dose: 0 mls/hr Documented by: ASPEN Lactated Ringer's (Lr) 1,000 mls @ 80 mls/hr IVCONT .[id number] [facility] Last Admin: 04/18/21 10:19 Dose: 80 mls/hr Documented by: KIRSTY Insulin Glargine (Insulin Glargine,Hum.Rec.Anlog 100 Unit/Ml 10 Ml Vial) 70 unit SUBCUT DAILY [facility] Last Admin: 04/18/21 10:18 Dose: 70 unit Documented by: KIRSTY Insulin Human Lispro (Insulin Lispro 100 Unit/Ml 3 Ml Vial) 0 unit SUBCUT QIDACHS [facility]; Protocol Last Admin: 04/18/21 08:13 Dose: 2 unit Documented by: KIRSTY Melatonin (Melatonin 3 Mg Tablet) 3 mg PO BEDTIME PRN PRN Reason: Insomnia Last Admin: 04/17/21 20:52 Dose: 3 mg Documented by: PILLO Metoprolol Succinate (Metoprolol Succinate Er 100 Mg Tab.Er.24h) 100 mg PO BID [facility]; Protocol Last Admin: 04/18/21 08:03 Dose: 100 mg Documented by: KIRSTY Omeprazole (Omeprazole 20 Mg Capsule.Dr) 20 mg PO DAILY@0630 [facility] Last Admin: 04/18/21 06:58 Dose: 20 mg Documented by: ASPEN Ondansetron HCl (Ondansetron Hcl 4 Mg/2 Ml Vial) 4 mg IVPUSH Q8H PRN PRN Reason: Nausea and Vomiting Pharmacy Consult (Consult Rx Perform Med Rec) 1 each MISCELLANE ONCE PRN PRN Reason: Consult order Sodium Chloride (0.9 % Sodium Chloride Flush 3 Ml Syringe) 3 ml IVFLUSH QSHIFT [facility] Last Admin: 04/18/21 08:07 Dose: Not Given Documented by: KIRSTY Non-Admin Reason: IV Running Labs CBC & Chem 7: 04/18/21 04:17 04/18/21 04:17 Labs: Laboratory Results - last 24 hr 04/17/21 04/17/21 04/17/21 11:31 16:14 19:54 MCV MCH MCHC RDW Plt Count MPV Immature Gran % (Auto) Neut % (Auto) Lymph % (Auto) [place] % (Auto) Eos % (Auto) Baso % (Auto) Lymph # (Auto) [place] # (Auto) Eos # (Auto) Baso # (Auto) Abs Immat Gran (auto) Absolute Neuts (auto) Absolute Nucleated RBC Nucleated RBC % (auto) Anion Gap Estim Creat Clear Calc Estimated GFR POC Glucose 221 H 209 H 203 H Random Glucose Calcium 04/18/21 04/18/21 04/18/21 04:17 04:17 07:35 MCV 92.5 MCH 29.6 MCHC 32.0 RDW 13.9 Plt Count 202 MPV 11.5 Immature Gran % (Auto) 0.9 H Neut % (Auto) 79.7 H Lymph % (Auto) 8.4 L [place] % (Auto) 10.0 Eos % (Auto) 0.6 Baso % (Auto) 0.4 Lymph # (Auto) 0.9 L [place] # (Auto) 1.1 Eos # (Auto) 0.1 Baso # (Auto) 0.0 Abs Immat Gran (auto) 0.10 H Absolute Neuts (auto) 8.6 H Absolute Nucleated RBC 0.000 Nucleated RBC % (auto) 0.0 Anion Gap 13 Estim Creat Clear Calc 54.6 Estimated GFR 50 POC Glucose 167 H Random Glucose 171 H Calcium 9.0 Assessment and Plan (1) Acute CHF: Status: Acute (2) DOMENICO (acute kidney injury): Status: Acute Assessment and Plan: this is a 76 year old male with history of DM, CAD s/p CABG, carotid stenosis s/p left CEA, HTN, HLD, CKD3, PVD among others who presents to the ED with two days of chills and feeling lightheaded found to have DOMENICO Acute CHF. Likely from IV fluids Stop IV fluids BNP 945 Cardiology consult Follow I&O;s, daily weights Fever. Resolved afebrile overnight, WBC improving CT abdomen, CXR with no source of infection, repeat UA negative covid negative, RPP negative lactic acid negative; BCx negative Cdiff pending seen by ID, recommend to continue empiric ceftriaxone, doxycycline (ceftin and doxy on d/c) for 7 days DOMENICO on CKD3. Trending down no obstruction on CT hold Aldactone, HCTZ, olmesartan follow BMP Urinary retention mayo placed on admission, will keep in at dc and f/u with urology o/p difficult cath, had some hematuria and bleeding around mayo. required urology to replace mayo hematuria ?r/t traumatic mayo placement, mayo changed by urology. Had some mild bleeding around mayo overnight, none this morning will hold asa, plavix DM reports episodes of hypoglycemia, has been taking his Lantus daily instead of bid and decreasing dose of lispro last HbA1c reportedly 6.2 continue Lantus daily SSI, POCs, ADA diet HTN BP uncontrolled increase dose of hydralazine to tid continue norvasc and metoprolol hold aldactone, HCTZ, olmesartan for DOMENICO monitor BP closely CAD continue statin, BB asa/plavix on hold for hematuria HLD continue lopid, statin gerd continue omeprazole code status - full code dvt ppx -? heparin d/c for hematuria; mechanical devices attending Dr. Becerra Quality Stroke Does the patient have a stroke diagnosis?: No VTE Prior VTE?: No VTE Risk Level:: Medical - moderate - high VTE Device Contraindication: N/A - Device Ordered VTE Drug Contraindication: N/A - Med Ordered
[2021-04-18] MEDS: cefTRIAXone sodium 1 GM in 0.9 % Sodium Chloride 50 ML IV (11:27)
[2021-04-18 11:47] LABS: Glucose, Whole Blood 235 mg/dL (60-115)
[2021-04-18 13:23] LABS: B Type Natriuretic Peptide 945 pg/mL (<100)
[2021-04-18 13:52] LABS: B Type Natriuretic Peptide 941 pg/mL (<100)
[2021-04-18 15:01] LABS: CDiff Gene PCR NEGATIVE (Negative)
[2021-04-18 16:51] LABS: Glucose, Whole Blood 256 mg/dL (60-115)
[2021-04-18] MEDS: Furosemide 20 MG/2 ML VIAL IVPUSH (17:13)
[2021-04-18 20:35] LABS: Glucose, Whole Blood 270 mg/dL (60-115)
[2021-04-18] MEDS: Acetaminophen 325 MG TABLET 650 MG PO (21:02)
[2021-04-18] MEDS: Atorvastatin Calcium 40 MG TABLET PO (21:02)
[2021-04-18] MEDS: Melatonin 3 MG TABLET PO (21:03)
[2021-04-19] VITALS: BP 165/11; PULSE 60; RESP 17; TEMP 36.4; O2SAT 95
[2021-04-19] MEDS: Doxycycline Hyclate 100 MG in 0.9 % Sodium Chloride 250 ML 166.67 MG IV (01:54)
[2021-04-19 04:00] VITALS: BP 186/78; PULSE 62; RESP 17; TEMP 36.4; O2SAT 94
[2021-04-19] MEDS: Omeprazole 20 MG CAPSULE.DR PO (05:09)
[2021-04-19 05:17] VITALS: BP 171/76; PULSE 64
[2021-04-19 06:09] LABS: Hematocrit 29.6 % (42.0-52.0); Hemoglobin 9.6 g/dl (14.0-18.0); Mean Corpuscular HGB Conc 32.4 g/dl (31.0-36.0); Mean Corpuscular Hemoglobin 29.3 pg (27.0-33.0); Mean Corpuscular Volume 90.2 fL (80.0-98.0); Platelet Count 247 X10*3/uL (160-400); Red Blood Count 3.28 X10*6/uL (4.60-5.80); Red Cell Distribution Width 13.7 % (11.0-16.0); White Blood Count 11.8 X10*3/uL (4.8-10.8)
[2021-04-19 06:29] LABS: Anion Gap 13 (12-20); Blood Urea Nitrogen 37 mg/dL (9-16); Calcium 9.3 mg/dL (8.4-10.2); Carbon Dioxide 21 mmol/L (22-29); Chloride 111 mmol/L (96-108); Creatinine Clr Calc Pharmacy 64.4; Estimated Glomerular Filt Rate > 60; Glucose Random 112 mg/dL (60-115); Sodium 141 mmol/L (135-145)
[2021-04-19 07:29] VITALS: BP 173/76; PULSE 65; RESP 19; TEMP 36.2; O2SAT 95
[2021-04-19 07:46] LABS: Glucose, Whole Blood 124 mg/dL (60-115)
[2021-04-19] MEDS: amLODIPine Besylate 10 MG TABLET PO (08:32)
[2021-04-19] MEDS: Metoprolol Succinate ER 100 MG TAB.ER.24H PO (08:32)
[2021-04-19] MEDS: gemfibroziL 600 MG TABLET PO (08:32)
[2021-04-19] MEDS: hydrALAZINE HCl 50 MG TABLET 100 MG PO ×2 (08:32→15:05)
[2021-04-19] MEDS: Insulin Glargine,Hum.rec.anlog 100 UNIT/ML 10 ML VIAL 70 UNIT SUBCUT (08:33)
[2021-04-19] MEDS: Furosemide 20 MG/2 ML VIAL IVPUSH (08:33)
[2021-04-19] MEDS: 0.9 % Sodium Chloride Flush 3 ML SYRINGE IVFLUSH ×2 (08:33→15:07)
[2021-04-19 08:40] LABS: B Type Natriuretic Peptide 585 pg/mL (<100)
--- NOTE | 2021-04-19 10:07 | P.CONCA_ITS ---
History of Present Illness History of Present Illness Date of Service: 04/19/21 Chief complaint: DOMENICO Narrative: This is a cardiology consultation regarding congestive heart failure. Patient generally goes to [facility]. He states that he had a coronary bypass surgery almost 20 years ago but has been doing good since then without any cardiac concerns at all. He sees his bonbon dipper only once and year and has been doing okay. No major concerns like angina or shortness of breath or in fact anything cardiac at baseline. It seems that he was admitted for weakness and chills. Has a history of intermittent diarrhea. During admission, he was found to have acute kidney insufficiency. Then it seems that he probably had a lot of IV fluids given and then developed shortness of breath thought to be from fluid overload. Today he states that he feels great and back to his baseline. No concerns whatsoever. Review of Systems Review of Systems: Yes all other systems are reviewed and are negative Cardiovascular: Cardiovascular: Reports as per HPI, Reports no additional cardiovascular complaints, Denies acrocyanosis, Denies cool extremities, Denies painful fingertips, Denies chest pain, Denies chest pain at rest, Denies diaphoresis, Denies syncope, Denies irregular heart rhythm, Denies claudication, Denies leg edema, Denies lightheadedness, Denies palpitations and Denies dyspnea Respiratory: Respiratory: Denies dyspnea Neurologic: Denies syncope Endocrine: Endocrine: Denies palpitations [facility] Past Medical History Medical History (Updated 04/19/21 @ 10:19 by Dakota Maharaj MD) Acute kidney injury 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 CAD (coronary artery disease) Chronic kidney disease, stage 3 CVA (cerebral vascular accident) Diabetes H/O cataract Hepatitis C High cholesterol HTN (hypertension) Hyperlipidemia Peripheral vascular disease Family History Family History Other CAD (coronary artery disease) Family history: reviewed and not pertinent Surgical History Surgical History (Updated 04/19/21 @ 10:13 by Dakota Maharaj MD) History of ankle surgery History of esophagogastroduodenoscopy (EGD) Hx of colonoscopy S/P CABG (coronary artery bypass graft) (~2006) S/P carotid endarterectomy (~08/2018) Social History Social History (Updated 04/14/21 @ 11:26 by Joyce Coombs DO) Household Members: Spouse Housing: House Do you presently have visiting nurse or other home services: No Alcohol intake: never Patient Tobacco Use Status: Never used Tobacco e-Cigarette/Vaping Use: Never Used Substance Use Type: Marijuana Advance Directives Date on File: 04/15/21 service: No Current occupational status: retired Meds Allergies Allergy/AdvReac Type Severity Reaction Status Date / Time No Known Allergies Allergy Verified 01/07/21 09:26 [No Known Allergies*] Active Medications: Current Medications Acetaminophen (Acetaminophen 325 Mg Tablet) 650 mg PO Q6H PRN PRN Reason: Pain, Mild (Pain Scale 1-3) Last Admin: 04/18/21 21:02 Dose: 650 mg Documented by: Amlodipine Besylate (Amlodipine Besylate 10 Mg Tablet) 10 mg PO DAILY [facility]; Protocol Last Admin: 04/19/21 08:32 Dose: 10 mg Documented by: Aspirin (Aspirin Enteric Coated 81 Mg Tablet.) 81 mg PO DAILY [facility] Last Admin: 04/15/21 09:09 Dose: 81 mg Documented by: Atorvastatin Calcium (Atorvastatin Calcium 40 Mg Tablet) 40 mg PO BEDTIME [facility] Last Admin: 04/18/21 21:02 Dose: 40 mg Documented by: Clopidogrel Bisulfate (Clopidogrel Bisulfate 75 Mg Tablet) 75 mg PO DAILY [facility] Last Admin: 04/15/21 09:09 Dose: 75 mg Documented by: Dextrose (Dextrose 50 % 25 Gm/50 Ml Vial) 25 gm IVPUSH Q15M PRN; Protocol PRN Reason: per Hypoglycemia Standing Ord. Docusate Sodium (Docusate Sodium 100 Mg Capsule) 100 mg PO DAILY PRN PRN Reason: Constipation Furosemide (Furosemide 20 Mg/2 Ml Vial) 20 mg IVPUSH BID@0900,1800 [facility]; P rotocol Last Admin: 04/19/21 08:33 Dose: 20 mg Documented by: Gemfibrozil (Gemfibrozil 600 Mg Tablet) 600 mg PO BID [facility] Last Admin: 04/19/21 08:32 Dose: 600 mg Documented by: Glucose (Glucose Gel 15 Gm Gel..Gram.) 15 gm PO Q15M PRN; Protocol PRN Reason: per Hypoglycemia Standing Ord. Hydralazine HCl (Hydralazine Hcl 50 Mg Tablet) 100 mg PO TID KEIKO; Protocol Last Admin: 04/19/21 08:32 Dose: 100 mg Documented by: Ceftriaxone Sodium 1 gm/ (Sodium Chloride) 50 mls @ 100 mls/hr IV Q24H [facility] Last Infusion: 04/18/21 12:02 Dose: Infused Documented by: Doxycycline Hyclate 100 mg/ (Sodium Chloride) 250 mls @ 166.67 mls/hr IV Q12H [facility] Last Infusion: 04/19/21 04:15 Dose: Infused Documented by: Insulin Glargine (Insulin Glargine,Hum.Rec.Anlog 100 Unit/Ml 10 Ml Vial) 70 unit SUBCUT DAILY [facility] Last Admin: 04/19/21 08:33 Dose: 70 unit Documented by: Insulin Human Lispro (Insulin Lispro 100 Unit/Ml 3 Ml Vial) 0 unit SUBCUT QIDACHS [facility]; Protocol Last Admin: 04/19/21 07:42 Dose: Not Given Documented by: Melatonin (Melatonin 3 Mg Tablet) 3 mg PO BEDTIME PRN PRN Reason: Insomnia Last Admin: 04/18/21 21:03 Dose: 3 mg Documented by: Metoprolol Succinate (Metoprolol Succinate Er 100 Mg Tab.Er.24h) 100 mg PO BID [facility]; Protocol Last Admin: 04/19/21 08:32 Dose: 100 mg Documented by: Omeprazole (Omeprazole 20 Mg Capsule.) 20 mg PO DAILY@0630 [facility] Last Admin: 04/19/21 05:09 Dose: 20 mg Documented by: Ondansetron HCl (Ondansetron Hcl 4 Mg/2 Ml Vial) 4 mg IVPUSH Q8H PRN PRN Reason: Nausea and Vomiting Pharmacy Consult (Consult Rx Perform Med Rec) 1 each MISCELLANE ONCE PRN PRN Reason: Consult order Sodium Chloride (0.9 % Sodium Chloride Flush 3 Ml Syringe) 3 ml IVFLUSH QSHIFT [facility] Last Admin: 04/19/21 08:33 Dose: 3 ml Documented by: Home Medications Medication Instructions Recorded Confirmed Last Taken Type amlodipine 10 mg tablet 1 tab PO DAILY 04/22/20 04/14/21 04/14/21 History atorvastatin 40 mg tablet 1 tab PO BEDTIME 04/22/20 04/14/21 04/14/21 History clopidogrel 75 mg tablet 1 tab PO DAILY 04/22/20 04/14/21 04/14/21 History insulin glargine 100 unit/mL 70 unit SUBCUT BID 04/22/20 04/14/21 04/14/21 History subcutaneous solution (Lantus U-100 Insulin) insulin lispro 100 unit/mL 30 unit SUBCUT TID 04/22/20 04/14/21 04/14/21 History subcutaneous solution metoprolol succinate 200 mg 100 mg PO BID 04/22/20 04/14/21 04/14/21 History tablet,extended release 24 hr olmesartan 40 mg tablet 1 tab PO DAILY 04/22/20 04/14/21 04/14/21 History spironolactone 25 1 tab PO DAILY 04/22/20 04/14/21 04/14/21 History mg-hydrochlorothiazide 25 mg tablet aspirin 81 mg tablet,delayed 81 mg PO DAILY 05/19/20 04/14/21 04/14/21 History release (Adult Low Dose Aspirin) gemfibrozil 600 mg tablet 600 mg PO BID 05/19/20 04/14/21 04/14/21 History hydralazine 100 mg tablet 100 mg PO BID tab 05/19/20 04/14/21 04/14/21 History omeprazole 20 mg capsule,delayed 1 cap PO DAILY 05/24/20 04/14/21 04/14/21 History release insulin syringe-needle U-100 1 mL #10 ea 09/21/20 Unknown History 28 gauge x 1/2 docosahexaenoic acid (dha)-epa 1 cap PO DAILY 04/14/21 04/14/21 04/14/21 History capsule Physical Exam Vital Signs: Vital Signs: Last Vital Signs Temp 97.1 F 04/19/21 07:29 Pulse 65 04/19/21 07:29 Resp 19 04/19/21 07:29 BP 173/76 H 04/19/21 07:29 Pulse Ox 95 04/19/21 07:29 BMI result Body Mass Index 33.0 Const: General: no acute distress HENMT: Other: Unremarkable Neck: Neck: Yes normal visual inspection Chest: Chest palpation & inspection: normal inspection of the chest Resp: Auscultation: no crackles and wheezes Cardio: Palpation: normal PMI Heart sounds: S1 normal heart sound present, S2 normal heart sound present, no gallops, no murmurs and no rubs GI: Palpation (GI): Soft to palpation Back/Spine/Pelvis: Other: unremarkable Skin: Lesions: other Neuro: Cranial nerves: Yes Other cranial nerve findings present Extrem: General: Yes other Psych: Mental Status: other Objective Labs and Meds Result diagrams: 04/19/21 05:26 04/19/21 05:26 Lab results: Laboratory Results - last 24 hr 04/18/21 04/18/21 04/18/21 11:42 12:26 13:14 WBC RBC Hgb Hct MCV MCH MCHC RDW Plt Count MPV Absolute Nucleated RBC Nucleated RBC % (auto) Sodium Potassium Chloride Carbon Dioxide Anion Gap BUN Creatinine Estim Creat Clear Calc Estimated GFR POC Glucose 235 H Random Glucose Calcium B-Natriuretic Peptide 945 H 941 H C. difficile Tox B Gene 04/18/21 04/18/21 04/18/21 13:25 16:05 19:46 WBC RBC Hgb Hct MCV MCH MCHC RDW Plt Count MPV Absolute Nucleated RBC Nucleated RBC % (auto) Sodium Potassium Chloride Carbon Dioxide Anion Gap BUN Creatinine Estim Creat Clear Calc Estimated GFR POC Glucose 256 H 270 H Random Glucose Calcium B-Natriuretic Peptide C. difficile Tox B Gene NEGATIVE 04/19/21 04/19/21 04/19/21 05:26 05:26 05:26 WBC 11.8 H RBC 3.28 L Hgb 9.6 L Hct 29.6 L MCV 90.2 MCH 29.3 MCHC 32.4 RDW 13.7 Plt Count 247 MPV 11.0 Absolute Nucleated RBC 0.000 Nucleated RBC % (auto) 0.0 Sodium 141 Potassium 4.0 Chloride 111 H Carbon Dioxide 21 L Anion Gap 13 BUN 37 H Creatinine 1.18 Estim Creat Clear Calc 64.4 Estimated GFR > 60 POC Glucose Random Glucose 112 Calcium 9.3 B-Natriuretic Peptide 585 H C. difficile Tox B Gene 04/19/21 07:27 WBC RBC Hgb Hct MCV MCH MCHC RDW Plt Count MPV Absolute Nucleated RBC Nucleated RBC % (auto) Sodium Potassium Chloride Carbon Dioxide Anion Gap BUN Creatinine Estim Creat Clear Calc Estimated GFR POC Glucose 124 H Random Glucose Calcium B-Natriuretic Peptide C. difficile Tox B Gene ECG Interpretation: EKG shows sinus rhythm at 68/Min; right bundle-branch block. Imaging Radiologist's impression: Impressions Chest X-Ray 04/18/21 11:30 IMPRESSION: Question bronchial wall thickening at the lung bases. Assessment and Plan (1) Acute CHF: Status: Acute (2) S/P CABG (coronary artery bypass graft): Status: Acute (3) Hypertensive emergency: Status: Acute Laboratory data reviewed. High sensitivity troponin within range at 12.4. Cardiac BNP includes 237, 945, 941 and 585. Creatinine on admission was 1.79. Went up to 2.27 but today it is 1.18. Chest x-ray reported to have clear lungs without any effusion. Overall, probable heart failure related to fluid administration for renal insufficiency. Clinically, he still has some wheezing but no other signs of overload and chest x-ray also seems unremarkable from yesterday. It is probable that he still has some volume overload causing wheezing but could also be related to smoking marijuana at baseline. He is on low-dose Lasix which is acceptable as the renal function is improving. Otherwise blood pressure is quite high and current blood pressure is 173/76 mm Hg. He is on amlodipine, metoprolol, hydralazine at this time. Olmesartan/spironolactone/hydrochlorothiazide are being held. May have to resume ARB atleast as the renal function has improved. Echo is pending and we will review. Procedures Date of Service Date of Service: 04/19/21
[2021-04-19 11:32] LABS: Glucose, Whole Blood 220 mg/dL (60-115)
[2021-04-19 11:38] VITALS: BP 174/74; PULSE 62; RESP 18; TEMP 36.2; O2SAT 95
[2021-04-19] MEDS: Valsartan 160 MG TABLET PO (11:54)
[2021-04-19] MEDS: cefTRIAXone sodium 1 GM in 0.9 % Sodium Chloride 50 ML IV (11:55)
[2021-04-19] MEDS: Insulin Lispro 100 UNIT/ML 3 ML VIAL SUBCUT (11:55)
--- NOTE | 2021-04-19 12:39 | MHC.CM.PN ---
nurse residential caregiver note electronic medical record reviewed along with case discussed with staff nurse and hospitlaist . met with patient and his , they anticipate he will be discharged home today , after the interpertation of his echocardiogram. . discharge plan home no services pcp dr andrzej soriano patient to call for post hospitla discharge follow up patient is a;lso active with renal dr fritz and benefit director dr luis and will inform both physican he was in the hospital transportation family medicare immm [id number] patient currently has mayo catheter in place , with question of whether he will bave d/c home with this for a few days or have it removed , if home with catheter , staff nurse to educated care of mayo cath with patient and family
--- NOTE | 2021-04-19 15:10 | PM.DS ---
DS: Providers Provider Date of Service: 04/19/21 Date of admission: 04/14/21 16:13 Primary care physician: Elías Arce MD Consults: 04/15/21 12:55 Consult to Infectious Diseases Routine Consulting Provider: Breanna Fallon Reason for consultation: SIRS 04/18/21 16:55 Consult to Cardiology Routine Consulting Provider: Dakota Maharaj Reason for consultation: acute CHF Has provider been notified: No Attending physician on discharge: Ryan Becerra Discharging clinician: Vijaya Heaton DS: Diagnosis Discharge Diagnosis (1) Acute CHF: Status: Acute (2) Hypertensive emergency: Status: Acute DS: Summary Hospital Course Hospital Course: Acute CHF. Likely from IV fluids IV fluids were stopped, echocardiogram showed EF of 60-65% with grade 2 diastolic dysfunction. He does have a firebreak cutter that he follows with and he will follow up with outpatient He should check his weights daily and keep accurate records. Fever. Resolved . Unknown origin, no obvious source of infection afebrile overnight, WBC improving CT abdomen, CXR with no source of infection, repeat UA negative covid negative, RPP negative lactic acid negative; BCx negative Cdiff negative Seen and evaluated by Infectious Disease with recommendation to discharge on Ceftin and doxycycline DOMENICO on CKD3. Resolved no obstruction on CT Aldactone, HCTZ and olmesartan were initially held, will be continued on discharge Check BMP in 1 week Urinary retention mayo placed on admission . Will be discharged with Mayo catheter to follow up with urologist, Dr. Up did have some hematuria likely secondary to traumatic Mayo placement but this has since resolved. HTN BP uncontrolled increased dose of hydralazine to tid and continued norvasc and metoprolol aldactone, HCTZ, olmesartan were initially held due to DOMENICO but subsequently saw restarted with the resolution of DOMENICO. Time Spent with Patient Time attestation: Total time spent providing and/or coordinating discharge services: Discharge coordination time: Greater than 30 minutes Quality: Stroke Does the patient have a stroke diagnosis?: No Physical Exam Vital Signs: Vital Signs: Last Vital Signs Temp 97.1 F 04/19/21 11:38 Pulse 62 04/19/21 11:38 Resp 18 04/19/21 11:38 BP 174/74 H 04/19/21 11:38 Pulse Ox 95 04/19/21 11:38 BMI result Body Mass Index 33.0 Appearing in no acute distress head is normocephalic atraumatic eyes pupils are PERRLA sclera is anicteric mouth throat mucous membranes are intact and moist neck is supple no lymphadenopathy, no JVD noted lung sounds are clear to auscultation heart regular rate rhythm, clear S1, S2 positive bowel sounds, abdomen is soft, nontender neuro patient is alert x3, no focal deficits DS: Data Data Completed and Pending Completed studies during hospitalization [Text1]: Procedures Transfusion of Nonautologous Red Blood Cells into Peripheral Vein, Percutaneous Approach (04/22/20) Labs on day of discharge: Laboratory Results - last 24 hr 04/18/21 04/18/21 04/19/21 16:05 19:46 05:26 WBC 11.8 H RBC 3.28 L Hgb 9.6 L Hct 29.6 L MCV 90.2 MCH 29.3 MCHC 32.4 RDW 13.7 Plt Count 247 MPV 11.0 Absolute Nucleated RBC 0.000 Nucleated RBC % (auto) 0.0 Sodium Potassium Chloride Carbon Dioxide Anion Gap BUN Creatinine Estim Creat Clear Calc Estimated GFR POC Glucose 256 H 270 H Random Glucose Calcium B-Natriuretic Peptide 04/19/21 04/19/21 04/19/21 05:26 05:26 07:27 WBC RBC Hgb Hct MCV MCH MCHC RDW Plt Count MPV Absolute Nucleated RBC Nucleated RBC % (auto) Sodium 141 Potassium 4.0 Chloride 111 H Carbon Dioxide 21 L Anion Gap 13 BUN 37 H Creatinine 1.18 Estim Creat Clear Calc 64.4 Estimated GFR > 60 POC Glucose 124 H Random Glucose 112 Calcium 9.3 B-Natriuretic Peptide 585 H 04/19/21 11:26 WBC RBC Hgb Hct MCV MCH MCHC RDW Plt Count MPV Absolute Nucleated RBC Nucleated RBC % (auto) Sodium Potassium Chloride Carbon Dioxide Anion Gap BUN Creatinine Estim Creat Clear Calc Estimated GFR POC Glucose 220 H Random Glucose Calcium B-Natriuretic Peptide Discharge Plan Discharge Anticipated Discharge Date/Time: 04/19/21 15:06 Patient Disposition: Home, Self-Care Discharge Diagnosis: Acute congestive heart failure Fever of unknown origin DOMENICO and CKD Urinary retention Hematuria Referrals: Elías Arce MD [Primary Care Provider] - 1 Week Discharge Medications: New cefuroxime axetil 500 mg tablet 500 mg PO BID Qty: 14 RF: 0 doxycycline hyclate 100 mg tablet 100 mg PO BID Qty: 14 RF: 0 Continued atorvastatin 40 mg tablet 1 tab PO BEDTIME RF: 0 Lantus U-100 Insulin 100 unit/mL solution 70 unit subcut BID RF: 0 spironolacton-hydrochlorothiaz 25-25 mg tablet 1 tab PO DAILY RF: 0 metoprolol succinate 200 mg tablet extended release 24 hr 100 mg PO BID RF: 0 clopidogrel 75 mg tablet 1 tab PO DAILY RF: 0 Hold Instructions: Resume on 04/24/20. amlodipine 10 mg tablet 1 tab PO DAILY RF: 0 insulin lispro 100 unit/mL solution 30 unit subcut TID RF: 0 olmesartan 40 mg tablet 1 tab PO DAILY RF: 0 hydralazine 100 mg tablet 100 mg PO BID RF: 0 gemfibrozil 600 mg tablet 600 mg PO BID RF: 0 omeprazole 20 mg capsule,delayed release(DR/EC) 1 cap PO DAILY RF: 0 docosahexaenoic acid-epa Capsule 1 cap PO DAILY RF: 0 aspirin [Adult Low Dose Aspirin] 81 mg tablet,delayed release (DR/EC) 81 mg PO DAILY RF: 0 (DME) insulin syringe-needle U-100 1 mL 28 gauge x 1/2 syringe See Rx Instructions syringe .ROUTE .MEDSUPPLY Qty: 10 RF: 0 Discharge Orders: Discharge Order (Routine); Ordered 04/19/21 Ordered By: Vijaya Heaton Diet: advance to usual diet Activity on Discharge: As tolerated Stand Alone Forms: Patient Portal Discharge page Care Plan Goals: resolution of symptoms Health Concerns: Acute congestive heart failure Fever of unknown origin DOMENICO and CKD Urinary retention Hematuria Plan of Treatment: Follow-up with primary care provider as needed line follow-up with firebreak cutter as needed Assessment: see discharge summary
[2021-04-19 15:39] VITALS: PULSE 66; RESP 18; TEMP 36.1; O2SAT 95
--- NOTE | 2021-04-19 21:11 | CA_ITS ---
Transthoracic Echocardiogram Patient (Last, First, Middle): John Faulkner, Gender: Male Date of : 1945 Age: 76 Procedure Date: 04/19/2021 Procedure Type: Transthoracic Echocardiogram Location: S3E Height: 177.8 cm Weight: 104.33 kg BSA: 2.22 m2 Heart Rate: bpm BP: 176 / 76 mmHg Poker Supervisor: Referring MD: Dakota Maharaj MD Symptoms: CHF Study Quality: Fair ECG Rhythm: Sinus Conclusions: - The left ventricular systolic function is normal. The visually estimated ejection fraction is between 60-65%. - Evidence suggests grade II (moderate) diastolic dysfunction. - There is mild calcification of the aortic valve. Findings Procedure Information Contrast agent, definity, is being given per protocol without apparent complications. Left Ventricle Normal left ventricular cavity size. There is mildly increased left ventricular wall thickness. The left ventricular systolic function is normal. The visually estimated ejection fraction is between 60-65%. There is paradoxical septal motion consistent with post-operative status. E/E prime ratio is >15, consistent with elevated filling pressures. Evidence suggests grade II (moderate) diastolic dysfunction. Even with contrast, difficult to assess wall motion but grossly, nothing obvious. Right Ventricle The right ventricle was not well visualized. Mildly increased right ventricular cavity size. There is normal right ventricular systolic function. Atria The left atrium is moderately dilated. The right atrium is normal in size. Aortic Valve There is a normal trileaflet aortic valve. There is mild calcification of the aortic valve. There is no aortic valve stenosis. There is no aortic valve regurgitation. Mitral Valve The mitral valve appears normal. There is no mitral valve regurgitation. There is no mitral valve stenosis. Pulmonic Valve The pulmonic valve was not well visualized. Tricuspid Valve Normal tricuspid valve structure. There is trace tricuspid valve regurgitation. The right ventricular systolic pressure may be underestimated. The pulmonary artery systolic pressure is normal. Great Vessels The aortic annulus, sinuses of valsalva, and asc aorta are normal in size. Venous The inferior vena cava is normal in size and collapses greater than 50% with inspiration. Pericardium/Pleural There is no evidence of pericardial effusion. Prior Study Comparison No prior study available for comparison. Measurements 2D Linear Measurements IVSd: 1.26 0.6-0.9/0.6-1.0 cm LVIDd: 5.53 3.9-5.3/4.2-5.9 cm LVIDd Index: 2.49 2.4-3.2/2.2-3.1 cm/m2 LVIDs: 3.94 2.0-3.6 cm LVPWd: 1.22 0.7-1.1 cm Ao Root: 3.20 2.1-3.5 cm LA Diam: 5.40 2.7-3.8/3.0-4.0 cm LAIDs Index: 2.43 1.5-2.3 cm/m2 LV Mass: 358.60 67-162/88-224 g LV Mass Index: 161.53 43-95/49-115 g/m2 LVOT Diam: 2.30 3.0+(-)1.3 cm 2D Systolic Function EF 4C: 55.10 >55% EF 2C: 54.30 >55% EF BiP: 54.80 >55% Mitral Valve MV Pk E: 1.17 MV PK A: 0.83 MV Decel Time: 239.00 E/A: 1.40 E'Lateral: 4.79 E'Medial: 3.70 E/E' Med: 31.60 E/E' Lat: 24.40 PHT: 70.00 MVA PHT: 3.14 Decel [place]: 4.89 Aortic Valve AoV Pk Yaya: 1.66 AoV Mn Yaya: 1.04 AoV VTI: 0.43 AoV Pk Grad: 11.00 Aov Mn Grad: 5.00 FLORENTIN Cont.VTI: 2.26 LVOT LVOT Pk Yaya: 0.95 LVOT Mn Yaya: 0.60 LVOT VTI: 0.23 LVOT Pk Grad: 4.00 LVOT Mn Grad: 2.00 LVOT Diam: 2.30 LVOT Area: 4.15 Diastolic Function MV Pk E: 1.17 MV Pk A: 0.83 E/A: 1.40 E'Medial: 3.70 E/E' Med: 31.60 E' Laterial: 4.79 E/E' Lat: 24.40 Right Ventricle TAPSE (mm): 19.00 Tricuspid Valve TR Pk Yaya: 1.79 TR Pk Grad: 13.00 Great Vessels Aorta Ao Root-2D: 3.20 2.0-3.7 cm Ao Asc: 3.80 2.1-3.4 cm Pulmonary Valve PV Pk Yaya: 1.29 Peak PV Grad: 7.00 Updated in Other Vendor System with Status of Final Dakota Maharaj MD electronically signed on 04/19/2021 1:30:09 PM with status of Final
== END 2021-04-19 16:07 | disposition home or self-care (01) | DRG 682 ==
LOC: HO.ED 15:21 → HO.EDOVER 16:25 → HO.S3 04-15 17:57
PROVIDERS: Admitting Provider Physician Assistant Medical; Emergency Provider Emergency Medicine; PCP Internal Medicine; Visit Provider Nurse Practitioner Acute Care
DX: N17.9 Acute kidney failure, unspecified (principal); I50.31 Acute diastolic (congestive) heart failure; T83.83XA Hemorrhage due to genitourinary prosthetic devices, implants and grafts, initial encounter; I16.1 Hypertensive emergency; I13.0 Hypertensive heart and chronic kidney disease with heart failure and stage 1 through stage 4 chronic kidney disease, or unspecified chronic kidney disease; E11.22 Type 2 diabetes mellitus with diabetic chronic kidney disease; N18.30 Chronic kidney disease, stage 3 unspecified; K21.9 Gastro-esophageal reflux disease without esophagitis; E11.51 Type 2 diabetes mellitus with diabetic peripheral angiopathy without gangrene; R31.9 Hematuria, unspecified; R33.9 Retention of urine, unspecified; D50.0 Iron deficiency anemia secondary to blood loss (chronic); I25.10 Atherosclerotic heart disease of native coronary artery without angina pectoris; Z20.822 Contact with and (suspected) exposure to COVID-19; Z95.1 Presence of aortocoronary bypass graft; Z79.4 Long term (current) use of insulin; Z79.02 Long term (current) use of antithrombotics/antiplatelets; Z79.82 Long term (current) use of aspirin; Z79.899 Other long term (current) drug therapy
CPT/HCPCS: 36415; 51798; 71045; 74176; 80048; 80076; 81001; 82565; 82947; 83605; 83690; 83735; 83880; 84484; 85025; 85027; 87040; 87493; 87633; 87635; 93005; 93306; 96360; 96361; 99285; J0696; J1940; Q9957

== ENCOUNTER → 2021-05-03 13:12 | Outpatient (BNVA) | payer MEDICARE, SELFPAY | PROVIDERS: PCP Internal Medicine; Visit Provider Urology | DX: R33.8 Other retention of urine (principal) | CPT/HCPCS: 51700; 51798 ==

== ENCOUNTER 2021-06-07 09:45 | Outpatient (REF) | payer MEDICARE, SELFPAY ==
[2021-06-07 10:09] LABS: MANUAL DIFF FLAG NO
[2021-06-07 10:22] LABS: Basophils Absolute Auto 0.1 X10*3/uL (0.0-0.2); Basophils Percent Auto 0.7 % (0-2); Eosinophils Absolute Auto 0.2 X10*3/uL (0.0-0.4); Eosinophils Percent Auto 2.2 % (0-4); Hematocrit 31.4 % (42.0-52.0); Hemoglobin 9.6 g/dl (14.0-18.0); Lymphocytes Absolute Auto 1.5 X10*3/uL (1.2-4.9); Lymphocytes Percent Auto 15.4 % (20-40); Mean Corpuscular HGB Conc 30.6 g/dl (31.0-36.0); Mean Corpuscular Hemoglobin 28.8 pg (27.0-33.0); Mean Corpuscular Volume 94.3 fL (80.0-98.0); Mean Platelet Volume 9.5 fL (9.4-12.4); Monocytes Absolute Auto 0.8 X10*3/uL (0.1-1.2); Monocytes Percent Auto 8.6 % (2-11); Neutrophils Absolute Auto 7.1 x10*3/uL (2.0-8.3); Neutrophils Percent Auto 72.1 % (45-73); Platelet Count 409 X10*3/uL (160-400); Red Blood Count 3.33 X10*6/uL (4.60-5.80); Red Cell Distribution Width 14.3 % (11.0-16.0); White Blood Count 9.8 X10*3/uL (4.8-10.8)
[2021-06-07 11:10] LABS: Ferritin 50 ng/mL (20-250)
== END 2021-06-07 09:46 | disposition home or self-care (01) ==
LOC: HO.LAB 09:45
PROVIDERS: PCP Internal Medicine; Visit Provider Internal Medicine Gastroenterology
DX: D50.0 Iron deficiency anemia secondary to blood loss (chronic) (principal)
CPT/HCPCS: 36415; 82728; 85025

== ENCOUNTER → 2021-06-13 12:39 | Outpatient (BNVA) | payer MEDICARE, SELFPAY | PROVIDERS: PCP Internal Medicine; Referring Provider Internal Medicine; Visit Provider Internal Medicine Gastroenterology | DX: D64.9 Anemia, unspecified (principal) | CPT/HCPCS: 99212 ==

== ENCOUNTER 2021-07-13 12:45 | Outpatient (REF) | payer MEDICARE, SELFPAY ==
--- NOTE | ~2021-07-13 | US_ITS ---
EXAMINATION: US EXTRACRANIAL CAROTID DUPLEX, BILATERAL CLINICAL INFORMATION: Occlusion and stenosis of bilateral carotid arteries. COMPARISON: Ultrasound 06/28/2020. TECHNIQUE: Real-time ultrasound and Doppler techniques (integrating B-mode 2-D vascular images, Doppler spectral analysis and color-flow Doppler imaging) were utilized to interrogate the extracranial carotid arteries, the vertebral arteries and proximal subclavian arteries bilaterally. The degree of stenosis is determined by criteria similar to NASCET. FINDINGS: RIGHT SIDE: 1. There is calcified atherosclerotic plaque seen in the bifurcation/proximal ICA region. 2. The common carotid artery PSV proximally is 104 cm/s and distally 59.3 cm/s. 3. The internal carotid artery is occluded proximally. 4. The proximal external carotid artery PSV is 417 cm/s. 5. The vertebral artery shows antegrade flow. 6. The subclavian artery waveforms are at upper limits of normal for velocity suggesting stenosis. Incidental note of an enlarged lymph node adjacent to the common carotid which measures 2.3 x 1.6 x 1.5 cm. LEFT SIDE: 1. There is [id number] atherosclerotic plaque seen in the bifurcation/proximal ICA region. 2. The common carotid artery PSV proximally is 119 cm/s and distally 110 cm/s. 3. The proximal internal carotid artery velocities are 129 cm/s systolic and 19.4 cm/s diastolic. 4. The proximal external carotid artery PSV is 151 cm/s. 5. The vertebral artery is not visualized. 6. The subclavian artery waveforms show elevated peak systolic velocities (209 cm/s) suggesting stenosis. US/US carotid duplex BI IMPRESSION: 1. RIGHT: Occlusion of the right internal carotid artery. High-grade stenosis of the right external carotid artery. There is probable stenosis of the right subclavian as well. 2. LEFT: Minimal, nonhemodynamically significant stenosis of the proximal left internal carotid artery corresponding to a 0-49% stenosis by velocity criteria. The vertebral artery is not well visualized, uncertain if secondary to technical factors or occlusion. Further evaluation with cross-sectional imaging could be considered. 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 3. Incidental note of an enlarged lymph node adjacent to the distal right common carotid which is similar to the prior study of 06/26/2019.
== END 2021-07-13 12:46 | disposition home or self-care (01) ==
LOC: HO.US 12:45
PROVIDERS: PCP Internal Medicine; Visit Provider Surgery Vascular Surgery
DX: I65.23 Occlusion and stenosis of bilateral carotid arteries (principal)
CPT/HCPCS: 93880

== ENCOUNTER 2021-08-04 12:45 | Inpatient (IN) | payer MEDICARE, SELFPAY ==
[2021-08-04] VITALS (20 sets, daily range): BP systolic 70–135; BP diastolic 30–55; PULSE 72–93; RESP 16–24; TEMP 34.5–38.6; O2SAT 94–100; BMI 33.3; BMI 32.9
--- NOTE | ~2021-08-04 | CT_ITS ---
CT ANGIOGRAM NECK WITH CONTRAST CT ANGIOGRAM BRAIN WITH CONTRAST CLINICAL INFORMATION: Recent surgery left neck with hypotension. COMPARISON: Neck CT 03/16/2021. TECHNIQUE: Test bolus sequences followed by intravenous administration 70 mL of Omnipaque 350. Helical imaging was performed in the axial plane from the thoracic inlet to the skull vertex. Delayed postcontrast imaging of the head was also performed. The data was processed at the x ray technologist workstation for generation of MIP sequences. Angled MIPs and volume rendered reformatted images were also generated at an offline 3D workstation under concurrent supervision. Stenoses are assessed in accordance with NASCET criteria unless otherwise indicated. This CT examination was performed using dose optimization techniques as appropriate, variously including the following: *Automated exposure control *Adjustment of mA and/or kV according to patient size (this includes techniques or standardized protocols for targeted exams where dose is matched to indication/reason for exam; i.e. extremities or head) *Use of iterative reconstruction technique FINDINGS: BRAIN: [There is no intracranial hemorrhage, hydrocephalus, extra-axial surface collection, midline shift, or other herniation pattern. [place] to white matter differentiation is diffusely maintained without evidence of an evolved acute territorial infarct. The basilar cisterns are preserved. No significant soft tissue abnormality. No acute osseous abnormality. Near-complete opacification of the right maxillary sinus. Mild mucosal thickening throughout the ethmoid air cells bilaterally. The mastoid air cells are clear. CERVICAL SOFT TISSUES AND LUNG APICES: Partially imaged postoperative changes following partial left parotidectomy. There is soft tissue density associated with the left parotidectomy bed, most likely postoperative hematoma with superimposed foci of subcutaneous gas. Mild hematoma tracks superficial to the left sternocleidomastoid muscle and lateral to the left submandibular gland. I cannot assess for residual tumor given the degree of postoperative change. There is multilevel cervical spondylosis. Median sternotomy wires. Imaged upper lungs are clear. CTA: Atherosclerotic calcification results in severe stenoses of the vertebral artery origins bilaterally. Remainder of the right vertebral artery is patent though limitedly assessed secondary to artifact. Remainder of the left vertebral artery in the neck is patent. Extensive atherosclerotic calcification results in occlusion of the right internal carotid artery at its origin, stable in comparison to the prior neck CT. Stable appearing chronic occlusion of the right internal carotid artery throughout the neck and intracranially to the level of the reconstituted supraclinoid right ICA segment where there is an additional severe tandem stenosis. The left cervical ICA remains widely patent. Atherosclerotic calcification results in moderate to severe stenoses of the intradural vertebral arteries bilaterally. Basilar artery is widely patent. Atherosclerotic calcification results in a severe stenosis of left supraclinoid ICA segment. CT/CT angio head neck IMPRESSION: - Partially imaged postoperative changes following partial left parotidectomy. There is soft tissue density associated with the left parotidectomy bed, most likely postoperative hematoma with superimposed foci of subcutaneous gas. Mild hematoma tracks superficial to the left sternocleidomastoid muscle and lateral to the left submandibular gland. I cannot assess for residual tumor given the degree of postoperative change. - A partially calcified right level IIb lymph node on image 698 of series 10 measuring up to 1.6 cm in size which is similar to the 03/09/[address] As discussed previously, a metastatic lymph node is of concern. - Atherosclerotic calcification results in a severe stenosis of left supraclinoid ICA segment. - Stable appearing chronic occlusion of the right internal carotid artery throughout the neck and intracranially to the level of the reconstituted supraclinoid right ICA segment where there is an additional severe tandem stenosis. - Atherosclerotic calcification results in moderate to severe stenoses of the intradural vertebral arteries bilaterally. - Atherosclerotic calcification results in severe stenoses of the vertebral artery origins bilaterally.
--- NOTE | ~2021-08-04 | CT_ITS ---
EXAMINATION: CT CHEST WITHOUT CONTRAST CT ABDOMEN AND PELVIS WITHOUT CONTRAST CLINICAL INFORMATION: Hypotension. COMPARISON: 04/14/2020 TECHNIQUE: Multidetector volumetric imaging was performed through the chest, abdomen and pelvis without contrast. Sagittal and coronal reformatted images were obtained on the technologist's workstation. Axial MIP volume rendering provided. This CT examination was performed using dose optimization techniques as appropriate, variously including the following: *Automated exposure control *Adjustment of mA and/or kV according to patient size (this includes techniques or standardized protocols for targeted exams where dose is matched to indication/reason for exam; i.e. extremities or head) *Use of iterative reconstruction technique DLP: 05/08/2003 mGy-cm. FINDINGS: CHEST: Lungs: The central airways are patent. No consolidation. Mild bronchial wall thickening. No pleural effusion or pneumothorax. There are no pulmonary parenchymal nodules. Mediastinum: The heart is of normal size. Coronary artery calcifications. There is no pericardial effusion. Central vascular structures are unremarkable. No hilar or mediastinal lymphadenopathy. Chest Wall/Axilla: No lymphadenopathy. No chest wall mass. ABDOMEN/PELVIS: Liver, Gallbladder, Biliary Tree: The liver is normal in size, shape, and attenuation. No focal hepatic lesion or biliary ductal dilatation is present. Stones layering in the gallbladder lumen. No wall thickening or pericholecystic fluid. Pancreas: Unremarkable. Spleen: Unremarkable. Adrenal Glands: Unremarkable. Kidneys and Ureters: Contrast noted feeding excreted from both kidneys, correlating with recent CT angiogram. No hydronephrosis or nephrolithiasis. Exophytic right midpole simple renal cyst. No follow-up imaging recommended. Bladder: Decompressed with Marques catheter in place. Gastrointestinal Tract: The stomach and small bowel appear unremarkable. No dilated loops of bowel or evidence of obstruction. No diverticulosis. No colonic wall thickening or adjacent inflammatory changes. No free air or free fluid. The appendix is unremarkable. Abdominal Wall: No hernia is demonstrated. Lymphovascular Structures: Lymph nodes: Normal. Vascular: Normal caliber aorta with moderate atherosclerotic calcification. Pelvic Viscera: The prostate and seminal vesicles are unremarkable. OSSEOUS STRUCTURES: No acute or suspicious osseous abnormality. Degenerative changes throughout the spine with multilevel bridging osteophytes. Vertebral body height and alignment maintained. Vacuum disc phenomenon of L4-L5. CT/CT abdomen pelvis wo con IMPRESSION: No acute findings in the abdomen or pelvis. No evidence of bleed. No acute pulmonary findings. Mild bronchial wall thickening which could be acute or chronic. Cholelithiasis.
--- NOTE | 2021-08-04 13:14 | ECG_ITS ---
Test Reason : weakness Blood Pressure : / mmHG Vent. Rate : 078 BPM Atrial Rate : 072 BPM P-R Int : 000 ms QRS Dur : 156 ms QT Int : 442 ms P-R-T Axes : 000 051 046 degrees QTc Int : 503 ms Normal sinus rhythm with Premature atrial complexes / Premature ventricular complexes Right bundle branch block Abnormal ECG When compared with ECG of 14-APR-2021 11:19, Premature atrial complexes / Premature ventricular complexes are now Present QT has lengthened Referred By: Stella Francis Electronically Signed By:LD BRYAN MD
[2021-08-04 13:32] LABS: Basophils Absolute Auto 0.1 X10*3/uL (0.0-0.2); Basophils Percent Auto 0.3 % (0-2); Eosinophils Absolute Auto 0.2 X10*3/uL (0.0-0.4); Eosinophils Percent Auto 0.8 % (0-4); Imm Gran Abs Auto 0.51 X10*3/uL (0.00-0.03); Imm Gran Pct Auto 2.5 % (0.0-0.4); Lymphocytes Absolute Auto 2.8 X10*3/uL (1.2-4.9); Lymphocytes Percent Auto 13.8 % (20-40); MANUAL DIFF FLAG SCAN; Mean Corpuscular HGB Conc 30.1 g/dl (31.0-36.0); Mean Corpuscular Volume 92.9 fL (80.0-98.0); Mean Platelet Volume 10.3 fL (9.4-12.4); Monocytes Percent Auto 9.5 % (2-11); Neutrophils Percent Auto 73.1 % (45-73); Platelet Count 450 X10*3/uL (160-400); Red Blood Count 2.25 X10*6/uL (4.60-5.80); Red Cell Distribution Width 14.6 % (11.0-16.0); SCAN SMEAR FLAG 1; White Blood Count 20.6 X10*3/uL (4.8-10.8)
[2021-08-04 13:36] LABS: Hematocrit 20.9 % (42.0-52.0); Hemoglobin 6.3 g/dl (14.0-18.0)
[2021-08-04 13:48] LABS: SLIDE REVIEW VERIFIED
[2021-08-04 13:49] LABS: Lactic Acid 5.2 mmol/L (0.5-2.0)
[2021-08-04 13:51] LABS: Alanine Aminotransferase 8 U/L (0-40); Albumin Level 3.9 g/dL (3.5-5.0); Alkaline Phosphatase 123 U/L (39-117); Anion Gap 20 (12-20); Aspartate Amino Transferase 9 U/L (5-37); Bilirubin Direct 0.2 mg/dL (0.0-0.5); Bilirubin Total 0.3 mg/dL (0.0-1.0); Blood Urea Nitrogen 64 mg/dL (9-16); Calcium 9.6 mg/dL (8.4-10.2); Carbon Dioxide 15 mmol/L (22-29); Chloride 108 mmol/L (96-108); Estimated Glomerular Filt Rate 31; Glucose Random 258 mg/dL (60-115); Magnesium 2.2 mg/dL (1.6-2.6); Potassium 4.1 mmol/L (3.3-5.1); Sodium 139 mmol/L (135-145)
[2021-08-04 13:58] LABS: COVID-19 Test Negative (Negative); IDNOW Serial# 16C4AD1C
[2021-08-04] MEDS: iohexoL 350 MG/ML 100 ML INFUS..BTL IV (14:13)
--- NOTE | 2021-08-04 14:33 | ED_ITS ---
HPI - Dizziness General Chief Complaint: Syncope Stated Complaint: LOW BP,DIZZY,VOMIT,RECENT SURG 1 WEEK AGO PER EMS Time Seen by Provider: 08/04/21 13:06 Source: family and EMS Mode of arrival: EMS Limitations: no limitations History of Present Illness HPI Narrative: 76-year-old male with a history of coronary artery disease, chronic kidney disease, diabetes, hepatitis-C, high cholesterol, hypertension, peripheral vascular disease, right carotid stenosis here with reports of dizziness. Per patient's the patient had a left parotidectomy Dr Berrios at [facility] on July 28 and was discharged home yesterday. 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 Patient had a resection at that is real. She has a follow-up next week to there to determine what the next plan will be for the patient. Today the patient was and shaving in the bathroom when she heard a loud being. She found the patient lying on the ground. At that time he was sweating, complaining of feeling dizzy and lightheaded. EMS was called. Patient tells me that during the patient's hospital stay he did have some hematuria and his Plavix/Aspirin 81mg was held for several days. He had a Marques catheter placed and his Plavix was resumed on discharge. MD elicited complaint: dizziness and lightheadedness Related Data Home Medications Medication Instructions Recorded Confirmed amlodipine 10 mg tablet 1 tab PO DAILY 04/22/20 08/04/21 atorvastatin 40 mg tablet 1 tab PO BEDTIME 04/22/20 08/04/21 clopidogrel 75 mg tablet 1 tab PO DAILY 04/22/20 08/04/21 insulin glargine 100 unit/mL 80 unit SUBCUT BID 04/22/20 08/04/21 subcutaneous solution (Lantus U-100 Insulin) insulin lispro 100 unit/mL 30 unit SUBCUT TID 04/22/20 08/04/21 subcutaneous solution olmesartan 40 mg tablet 1 tab PO DAILY 04/22/20 08/04/21 aspirin 81 mg tablet,delayed 81 mg PO DAILY 05/19/20 08/04/21 release (Adult Low Dose Aspirin) gemfibrozil 600 mg tablet 600 mg PO BID 05/19/20 08/04/21 hydralazine 100 mg tablet 100 mg PO BID tab 05/19/20 08/04/21 omeprazole 20 mg capsule,delayed 1 cap PO DAILY 05/24/20 08/04/21 release insulin syringe-needle U-100 1 mL #10 ea 09/21/20 08/04/21 28 gauge x 1/2 docosahexaenoic acid (dha)-epa 1 cap PO DAILY 04/14/21 08/04/21 capsule furosemide 20 mg tablet 1 tab PO DAILY 08/04/21 08/04/21 metoprolol succinate 200 mg 0.5 tab PO BID 08/04/21 08/04/21 tablet,extended release 24 hr spironolactone 25 mg tablet 1 tab PO DAILY 08/04/21 08/04/21 Allergies Allergy/AdvReac Type Severity Reaction Status Date / Time No Known Allergies Allergy Verified 01/07/21 09:26 [No Known Allergies*] Review of Systems 2 Review of Systems: Yes all other systems are reviewed and are negative Constitutional: Constitutional: Reports no additional constitutional complaints, Denies body ache(s), Denies chills, Denies fever(s), Denies heada wen(s) and Denies weakness Eyes: Eyes: Reports no additional eye complaints and Denies change in vision ENT: Reports system reviewed and no additional complaints, except as documented, Reports dizziness, Denies headache(s), Denies nasal congestion, Denies nasal discharge and Denies neck pain Cardiovascular: Cardiovascular: Reports no additional cardiovascular complaints, Denies chest pain, Denies leg edema and Denies dyspnea Respiratory: Respiratory: Reports no additional respiratory complaints, Denies cough and Denies dyspnea Gastrointestinal: Gastrointestinal: Reports no additional gastrointestinal complaints, Denies abdominal pain, Denies diarrhea, Reports nausea and Reports vomiting Genitourinary: Genitourinary: Denies urinary incontinence Musculoskeletal: Musculoskeletal: Reports no additional musculoskeletal complaints, Denies back pain, Denies arthralgias, Denies joint swelling, Denies neck pain, Denies numbness and Denies tingling Integumentary/Breasts: Skin/Breast: Reports system reviewed and no additional complaints, except as docu and Denies rash Neurologic: Reports system reviewed and no additional complaints, except as documented, Reports dizziness, Denies headache(s), Denies numbness, Denies tingling and Denies weakness [facility] Past Medical History Attestation statement: The following information was validated with the patient. 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 CAD (coronary artery disease) Chronic kidney disease, stage 3 CVA (cerebral vascular accident) Diabetes Difficult Marques catheter placement H/O cataract Hepatitis C High cholesterol HTN (hypertension) Hyperlipidemia Iron deficiency anemia due to chronic blood loss Peripheral vascular disease Surgical History History of ankle surgery History of esophagogastroduodenoscopy (EGD) Hx of colonoscopy S/P CABG (coronary artery bypass graft) (~2006) S/P carotid endarterectomy (~08/2018) Family History Family History Other CAD (coronary artery disease) Social History Social History Household Members: Spouse Housing: House Do you presently have visiting nurse or other home services: No Alcohol intake: never Patient Tobacco Use Status: Never used Tobacco e-Cigarette/Vaping Use: Never Used Use of substances other than those prescribed or required for medical reasons: No Substance Use Type: Marijuana Advance Directives: Yes Advance Directives on File: Yes Advance Directives Date on File: 04/15/21 service: No Current occupational status: retired Physical Exam Vital Signs: Vital Signs: Last Vital Signs Temp 101.3 F H 08/04/21 19:00 Pulse 93 08/04/21 18:09 Resp 20 08/04/21 19:00 BP 133/52 L 08/04/21 19:00 Pulse Ox 96 08/04/21 19:00 BMI result Body Mass Index 32.9 Const: Other: Ill-appearing, pale, diaphoretic Orientation/consciousness: patient oriented x3 HEENT: Head: Yes normal to inspection Ears: hearing grossly normal bilater ally General nose exam: Normal external nose present Face and sinus: Yes normal facial exam Mouth: Normal oral and palatal mucosa present Eyes: General: appearance normal, both eyes and all related structures Pupils: Equal, round and reactive pupils present Neck: Other: Patient has surgical jamia from the left ear extending down the lateral left neck into the chest wall with ecchymosis in various stages of healing. No obvious swelling or mass. Palpable carotid pulses are noted with no thrill or bruit Resp: Other: Tachypnea rate of 24, clear Cardio: Rate: tachycardic Rhythm: regular rhythm Peripheral pulses: Peripheral pulses 2+ throughout GI: Inspection: Yes normal to inspection Palpation (GI): Soft to palpation and nontender Rectal Exam - Male: Yes Abnormal stool present (dark, heme +) Back/Spine/Pelvis: Thoracic/Lumbar Spine: thoracic and lumbar spine normal to inspection Skin: General skin exam: no rashes or lesions noted Neuro: General: patient oriented x3, moves all extremities and Unable to assess gait Cranial nerves: Yes Equal, round and reactive pupils present Cognition (Neuro): normal cognition Gait exam (Neuro): Unable to assess gait Sensory Exam: Normal double simultaneous stimulation for sensation Course Course Course Narrative: 76-year-old male here with possible syncopal episode at home now with vomiting and feeling lightheaded with hypotension on arrival with a systolic blood pressure of 70. Patient ill-appearing, diaphoretic. Patient immediately placed in the bed and placed on school bus monitor with 2 large-bore IVs, EKG and POC obtained. Fluids initiated. Patient is obese. [place] body weight 73 kg. Fluid 30cc/kg equals 2190. When blood pressure was over 100 systolic the patient was brought to CT scan for CT head and neck angio, CT abdomen and chest without contrast Reevaluation(s) Reevaluation #1: Hemoglobin 6. Stool is occult positive. 2 units of PRBC ordered. ?upper GIB. F amily was consented. Spoke to . Patient is full code. Leukocytosis, elevated lactic acid. At this time infection is suspected. Antibiotics ordered Time: 13:30 Reevaluation #2: Temp [address] Kathy Hugger on patient Nursing to call as is real to obtain discharge summary. Time: 13:45 Reevaluation #3: CT angio head and neck shows what looks like postoperative changes. CT chest and abdomen are unremarkable. A message was left with the patient's surgeon at [facility] to update them on the patient's status. Call out to GI to discuss upper GI bleed (Rahul). Protonix given. ICU was informed that patient will need ICU bed. Additional Reevaluation(s): 1540-Left VM with Dr Berrios office at [facility] for call back. Spoke to ICU Dr Raman for admit Spoke to Dr Kay who is asking for repeat CBC MDM - Dizziness MDM Narrative Medical decision making narrative: 76-year-old male postop day 6 from a left parotidectomy for parotid mass here with ? Syncopal episode with vomiting, dizziness and hypotension Wide differential including anemia, electrolyte abnormality, infection, sepsis, carotid dissection, GI bleed Medical Records Attestation: I reviewed the patient's medical records. Lab Data Attestation: I reviewed the patient's lab results. Result diagrams: 08/04/21 16:29 08/04/21 13:23 Labs: Lab Results 08/04/21 08/04/21 08/04/21 Range/Units 13:20 13:23 13:23 WBC 20.6 H (4.8-10.8) X10*3/uL RBC 2.25 L D (4.60-5.80) X10*6/uL Hgb 6.3 L* D (14.0-18.0) g/dl Hct 20.9 L* D (42.0-52.0) % MCV 92.9 (80.0-98.0) fL MCH 28.0 (27.0-33.0) pg MCHC 30.1 L (31.0-36.0) g/dl RDW 14.6 (11.0-16.0) % Plt Count 450 H (160-400) X10*3/uL MPV 10.3 (9.4-12.4) fL Immature Gran % (Auto) 2.5 H (0.0-0.4) % Neut % (Auto) 73.1 H (45-73) % Lymph % (Auto) 13.8 L (20-40) % Door % (Auto) 9.5 (2-11) % Eos % (Auto) 0.8 (0-4) % Baso % (Auto) 0.3 (0-2) % Lymph # (Auto) 2.8 (1.2-4.9) X10*3/uL Door # (Auto) 2.0 H (0.1-1.2) X10*3/uL Eos # (Auto) 0.2 (0.0-0.4) X10*3/uL Baso # (Auto) 0.1 (0.0-0.2) X10*3/uL Abs Immat Gran (auto) 0.51 H (0.00-0.03) X10*3/uL Absolute Neuts (auto) 15.0 H (2.0-8.3) x10*3/uL Absolute Nucleated RBC 0.000 (0.0-0.012) X10*3/uL Nucleated RBC % (auto) 0.0 (0.0-0.2) /100WBC Smear Tech's Comments VERIFIED PT (9.9-13.0) SEC INR (0.9-1.1) Sodium 139 (135-145) mmol/L Potassium 4.1 (3.3-5.1) mmol/L Chloride 108 (96-108) mmol/L Carbon Dioxide 15 L (22-29) mmol/L Anion Gap 20 (12-20) BUN 64 H D (9-16) mg/dL Creatinine 2.08 H (0.5-1.4) mg/dL Estim Creat Clear Calc TNP Estimated GFR 31 POC Glucose 221 H (60-115) mg/dL Random Glucose 258 H D (60-115) mg/dL Lactic Acid (0.5-2.0) mmol/L Lactic Acid F/U @ 2Hr (0.5-2.0) mmol/L Calcium 9.6 (8.4-10.2) mg/dL Magnesium 2.2 (1.6-2.6) mg/dL Total Bilirubin 0.3 (0.0-1.0) mg/dL Direct Bilirubin 0.2 (0.0-0.5) mg/dL AST 9 D (5-37) U/L ALT 8 (0-40) U/L Alkaline Phosphatase 123 H (39-117) U/L Total Creatine Kinase 34 L (38-174) U/L Troponin I High Sens (<3.5-35.0) ng/L Total Protein 6.0 L (6.5-8.0) g/dL Albumin 3.9 (3.5-5.0) g/dL Urine Color Urine Appearance Urine pH (5.0-8.0) Ur Specific [place] (1.005-1.025) Urine Protein (NEG-TRACE) MG/DL Urine Glucose (UA) (NEG) MG/DL Urine Ketones (NEG) MG/DL Urine Blood (NEG) Urine Nitrite (NEG) Ur Leukocyte Esterase (NEG) Urine RBC (0) /HPF Urine WBC (0-4) /HPF Ur Squamous Epith Cells /LPF Urine Bacteria /LPF Urine Yeast /HPF Stool Occult Blood (NEGATIVE) COVID-19 (NEL) (Negative) COVID-19 Clin Com Blood Type Antibody Screen Crossmatch 08/04/21 08/04/21 08/04/21 Range/Units 13:23 13:23 13:34 WBC (4.8-10.8) X10*3/uL RBC (4.60-5.80) X10*6/uL Hgb (14.0-18.0) g/dl Hct (42.0-52.0) % MCV (80.0-98.0) fL MCH (27.0-33.0) pg MCHC (31.0-36.0) g/dl RDW (11.0-16.0) % Plt Count (160-400) X10*3/uL MPV (9.4-12.4) fL Immature Gran % (Auto) (0.0-0.4) % Neut % (Auto) (45-73) % Lymph % (Auto) (20-40) % Door % (Auto) (2-11) % Eos % (Auto) (0-4) % Baso % (Auto) (0-2) % Lymph # (Auto) (1.2-4.9) X10*3/uL Door # (Auto) (0.1-1.2) X10*3/uL Eos # (Auto) (0.0-0.4) X10*3/uL Baso # (Auto) (0.0-0.2) X10*3/uL Abs Immat Gran (auto) (0.00-0.03) X10*3/uL Absolute Neuts (auto) (2.0-8.3) x10*3/uL Absolute Nucleated RBC (0.0-0.012) X10*3/uL Nucleated RBC % (auto) (0.0-0.2) /100WBC Smear Tech's Comments PT (9.9-13.0) SEC INR (0.9-1.1) Sodium (135-145) mmol/L Potassium (3.3-5.1) mmol/L Chloride (96-108) mmol/L Carbon Dioxide (22-29) mmol/L Anion Gap (12-20) BUN (9-16) mg/dL Creatinine (0.5-1.4) mg/dL Estim Creat Clear Calc Estimated GFR POC Glucose (60-115) mg/dL Random Glucose (60-115) mg/dL Lactic Acid 5.2 H* (0.5-2.0) mmol/L Lactic Acid F/U @ 2Hr (0.5-2.0) mmol/L Calcium (8.4-10.2) mg/dL Magnesium (1.6-2.6) mg/dL Total Bilirubin (0.0-1.0) mg/dL Direct Bilirubin (0.0-0.5) mg/dL AST (5-37) U/L ALT (0-40) U/L Alkaline Phosphatase (39-117) U/L Total Creatine Kinase (38-174) U/L Troponin I High Sens 8.0 (<3.5-35.0) ng/L Total Protein (6.5-8.0) g/dL Albumin (3.5-5.0) g/dL Urine Color Urine Appearance Urine pH (5.0-8.0) Ur Specific [place] (1.005-1.025) Urine Protein (NEG-TRACE) MG/DL Urine Glucose (UA) (NEG) MG/DL Urine Ketones (NEG) MG/DL Urine Blood (NEG) Urine Nitrite (NEG) Ur Leukocyte Esterase (NEG) Urine RBC (0) /HPF Urine WBC (0-4) /HPF Ur Squamous Epith Cells /LPF Urine Bacteria /LPF Urine Yeast /HPF Stool Occult Blood (NEGATIVE) COVID-19 (NEL) Negative (Negative) COVID-19 Clin Com See Note Blood Type Antibody Screen Crossmatch 08/04/21 08/04/21 08/04/21 Range/Units 14:55 14:55 14:56 WBC (4.8-10.8) X10*3/uL RBC (4.60-5.80) X10*6/uL Hgb (14.0-18.0) g/dl Hct (42.0-52.0) % MCV (80.0-98.0) fL MCH (27.0-33.0) pg MCHC (31.0-36.0) g/dl RDW (11.0-16.0) % Plt Count (160-400) X10*3/uL MPV (9.4-12.4) fL Immature Gran % (Auto) (0.0-0.4) % Neut % (Auto) (45-73) % Lymph % (Auto) (20-40) % Door % (Auto) (2-11) % Eos % (Auto) (0-4) % Baso % (Auto) (0-2) % Lymph # (Auto) (1.2-4.9) X10*3/uL Door # (Auto) (0.1-1.2) X10*3/uL Eos # (Auto) (0.0-0.4) X10*3/uL Baso # (Auto) (0.0-0.2) X10*3/uL Abs Immat Gran (auto) (0.00-0.03) X10*3/uL Absolute Neuts (auto) (2.0-8.3) x10*3/uL Absolute Nucleated RBC (0.0-0.012) X10*3/uL Nucleated RBC % (auto) (0.0-0.2) /100WBC Smear Tech's Comments PT 13.0 (9.9-13.0) SEC INR 1.1 (0.9-1.1) Sodium (135-145) mmol/L Potassium (3.3-5.1) mmol/L Chloride (96-108) mmol/L Carbon Dioxide (22-29) mmol/L Anion Gap (12-20) BUN (9-16) mg/dL Creatinine (0.5-1.4) mg/dL Estim Creat Clear Calc Estimated GFR POC Glucose (60-115) mg/dL Random Glucose (60-115) mg/dL Lactic Acid (0.5-2.0) mmol/L Lactic Acid F/U @ 2Hr (0.5-2.0) mmol/L Calcium (8.4-10.2) mg/dL Magnesium (1.6-2.6) mg/dL Total Bilirubin (0.0-1.0) mg/dL Direct Bilirubin (0.0-0.5) mg/dL AST (5-37) U/L ALT (0-40) U/L Alkaline Phosphatase (39-117) U/L Total Creatine Kinase (38-174) U/L Troponin I High Sens (<3.5-35.0) ng/L Total Protein (6.5-8.0) g/dL Albumin (3.5-5.0) g/dL Urine Color Urine Appearance Urine pH (5.0-8.0) Ur Specific [place] (1.005-1.025) Urine Protein (NEG-TRACE) MG/DL Urine Glucose (UA) (NEG) MG/DL Urine Ketones (NEG) MG/DL Urine Blood (NEG) Urine Nitrite (NEG) Ur Leukocyte Esterase (NEG) Urine RBC (0) /HPF Urine WBC (0-4) /HPF Ur Squamous Epith Cells /LPF Urine Bacteria /LPF Urine Yeast /HPF Stool Occult Blood POSITIVE (NEGATIVE) COVID-19 (NEL) (Negative) COVID-19 Clin Com Blood Type O Positive Antibody Screen NEGATIVE Crossmatch See Detail 08/04/21 08/04/21 08/04/21 Range/Units 14:56 16:29 16:29 WBC 16.7 H (4.8-10.8) X10*3/uL RBC 3.04 L D (4.60-5.80) X10*6/uL Hgb 8.7 L D (14.0-18.0) g/dl Hct 28.1 L D (42.0-52.0) % MCV 92.4 (80.0-98.0) fL MCH 28.6 (27.0-33.0) pg MCHC 31.0 (31.0-36.0) g/dl RDW 14.6 (11.0-16.0) % Plt Count 347 (160-400) X10*3/uL MPV 10.1 (9.4-12.4) fL Immature Gran % (Auto) 1.9 H (0.0-0.4) % Neut % (Auto) 85.7 H (45-73) % Lymph % (Auto) 3.8 L (20-40) % Door % (Auto) 8.2 (2-11) % Eos % (Auto) 0.1 (0-4) % Baso % (Auto) 0.3 (0-2) % Lymph # (Auto) 0.6 L (1.2-4.9) X10*3/uL Door # (Auto) 1.4 H (0.1-1.2) X10*3/uL Eos # (Auto) 0.0 (0.0-0.4) X10*3/uL Baso # (Auto) 0.1 (0.0-0.2) X10*3/uL Abs Immat Gran (auto) 0.31 H (0.00-0.03) X10*3/uL Absolute Neuts (auto) 14.3 H (2.0-8.3) x10*3/uL Absolute Nucleated RBC 0.000 (0.0-0.012) X10*3/uL Nucleated RBC % (auto) 0.0 (0.0-0.2) /100WBC Smear Tech's Comments PT (9.9-13.0) SEC INR (0.9-1.1) Sodium (135-145) mmol/L Potassium (3.3-5.1) mmol/L Chloride (96-108) mmol/L Carbon Dioxide (22-29) mmol/L Anion Gap (12-20) BUN (9-16) mg/dL Creatinine (0.5-1.4) mg/dL Estim Creat Clear Calc Estimated GFR POC Glucose (60-115) mg/dL Random Glucose (60-115) mg/dL Lactic Acid (0.5-2.0) mmol/L Lactic Acid F/U @ 2Hr 1.5 (0.5-2.0) mmol/L Calcium (8.4-10.2) mg/dL Magnesium (1.6-2.6) mg/dL Total Bilirubin (0.0-1.0) mg/dL Direct Bilirubin (0.0-0.5) mg/dL AST (5-37) U/L ALT (0-40) U/L Alkaline Phosphatase (39-117) U/L Total Creatine Kinase (38-174) U/L Troponin I High Sens (<3.5-35.0) ng/L Total Protein (6.5-8.0) g/dL Albumin (3.5-5.0) g/dL Urine Color YELLOW Urine Appearance TURBID Urine pH 5.5 (5.0-8.0) Ur Specific [place] 1.015 (1.005-1.025) Urine Protein NEG (NEG-TRACE) MG/DL Urine Glucose (UA) NEG (NEG) MG/DL Urine Ketones NEG (NEG) MG/DL Urine Blood 1+ H (NEG) Urine Nitrite NEG (NEG) Ur Leukocyte Esterase 1+ H (NEG) Urine RBC 5-9 H (0) /HPF Urine WBC 1-4 (0-4) /HPF Ur Squamous Epith Cells NONE /LPF Urine Bacteria 1+ /LPF Urine Yeast 1+ /HPF Stool Occult Blood (NEGATIVE) COVID-19 (NEL) (Negative) COVID-19 Clin Com Blood Type Antibody Screen Crossmatch Imaging Data CTA head/neck: Attestation: I personally reviewed and interpreted this imaging study as follows: Radiologist's impression: IMPRESSION: - Partially imaged postoperative changes following partial left parotidectomy. There is soft tissue density associated with the left parotidectomy bed, most likely postoperative hematoma with superimposed foci of subcutaneous gas. Mild hematoma tracks superficial to the left sternocleidomastoid muscle and lateral to the left submandibular gland. I cannot assess for residual tumor given the degree of postoperative change. ? - A partially calcified right level IIb lymph node on image 698 of series 10 measuring up to 1.6 cm in size which is similar to the 03/09/[address] As discussed previously, a metastatic lymph node is of concern. ? - Atherosclerotic calcification results in a severe stenosis of left supraclinoid ICA segment. ? - Stable appearing chronic occlusion of the right internal carotid artery throughout the neck and intracranially to the level of the reconstituted supraclinoid right ICA segment where there is an additional severe tandem stenosis. ? - Atherosclerotic calcification results in moderate to severe stenoses of the intradural vertebral arteries bilaterally. ? - Atherosclerotic calcification results in severe stenoses of the vertebral artery origins bilaterally. Ct chest/abdomen./pelvis: Attestation: I personally reviewed and interpreted this imaging study as follows: Radiologist's impression: FINDINGS: CHEST: Lungs: The central airways are patent. No consolidation. Mild bronchial wall thickening. No pleural effusion or pneumothorax. There are no pulmonary parenchymal nodules.? Mediastinum: The heart is of normal size. Coronary artery calcifications. There is no pericardial effusion. Central vascular structures are unremarkable. No hilar or mediastinal lymphadenopathy.? Chest Wall/Axilla: No lymphadenopathy. No chest wall mass.? ABDOMEN/PELVIS: Liver, Gallbladder, Biliary Tree: The liver is normal in size, shape, and attenuation. No focal hepatic lesion or biliary ductal dilatation is present. Stones layering in the gallbladder lumen. No wall thickening or pericholecystic fluid.? Pancreas: Unremarkable.? Spleen: Unremarkable.? Adrenal Glands: Unremarkable.? Kidneys and Ureters: Contrast noted feeding excreted from both kidneys, correlating with recent CT angiogram. No hydronephrosis or nephrolithiasis. Exophytic right midpole simple renal cyst. No follow-up imaging recommended.? Bladder: Decompressed with Marques catheter in place.? Gastrointestinal Tract: The stomach and small bowel appear unremarkable. No dilated loops of bowel or evidence of obstruction. No diverticulosis. No colonic wall thickening or adjacent inflammatory changes. No free air or free fluid. The appendix is unremarkable.? Abdominal Wall: No hernia is demonstrated.? Lymphovascular Structures:? Lymph nodes: Normal. Vascular: Normal caliber aorta with moderate atherosclerotic calcification. Pelvic Viscera: The prostate and seminal vesicles are unremarkable.? OSSEOUS STRUCTURES: No acute or suspicious osseous abnormality. Degenerative changes throughout the spine with multilevel bridging osteophytes. Vertebral body height and alignment maintained. Vacuum disc phenomenon of L4-L5. CT/CT abdomen pelvis wo con IMPRESSION: No acute findings in the abdomen or pelvis. No evidence of bleed. ? No acute pulmonary findings. Mild bronchial wall thickening which could be acute or chronic. ? Cholelithiasis.? ? ECG Data Attestation: I personally reviewed and interpreted this ECG as follows: ECG interpretation date: 08/04/21 ECG interpretation time: 13:13 Interpretation: Rate of 78, normal QRS, QTC is 503, right bundle branch block, occasional PVCs Critical Care Time Critical Care Time Critical Care Time: Yes Total Critical Care Time: 120 Attestation: -Direct bedside time d/t hypotension with line placement, aggressive fluids, uncrossed/unmatched prbc given, supervised to CT scan for imaging, d/t with family, GI, ICU doctor Discharge Plan Discharge Clinical Impression: Syncope, Anemia, GIB (gastrointestinal bleeding), DOMENICO (acute kidney injury), Acute hypotension Patient Disposition: Admitted As Inpatient Interventions: Admission Worksheet (ED) Last Done: 08/04/21 19:02 Discharge Date/Time: 08/04/21 19:09
--- NOTE | 2021-08-04 14:58 | PC.NURSE ---
color improving. pt remains alert. no vomiting since in CT. at bedside. st on monitor. bp's are more stable. blood infusing and patient tolerates well. no SOB.
[2021-08-04 15:02] LABS: Glucose, Whole Blood 221 mg/dL (60-115)
[2021-08-04 15:09] LABS: Appearance Urine TURBID; Color Urine YELLOW; Glucose Urine UA NEG (NEG); Leukocyte Esterase Urine 1+ (NEG); Nitrite Urine NEG (NEG); OBS Int Ctl Valid YES; OBS1 POSITIVE (NEGATIVE); PH 5.5 (5.0-8.0); Specific Gravity - Urine 1.015 (1.005-1.025); UACC Culture Trigger YES; Urine Blood 1+ (NEG); Urine Ketones NEG (NEG); Urine Protein NEG (NEG-TRACE)
[2021-08-04] MEDS: ondansetron HCL 4 MG/2 ML VIAL IVPUSH ×2 (15:10→15:12)
[2021-08-04 15:11] LABS: INTERNATIONAL NORM RATIO 1.1 (0.9-1.1)
[2021-08-04] MEDS: 0.9 % Sodium Chloride 1,000 ML 999 ML IV ×2 (15:11)
[2021-08-04 15:17] LABS: Bacteria Urine 1+ /LPF
[2021-08-04 15:29] LABS: Reflex Lactate? Lactic Acid Added
--- NOTE | 2021-08-04 16:05 | PHA.MEDREC ---
Pharmacy Consult ? Medication Reconciliation Pharmacy has completed the medication reconciliation.
--- NOTE | 2021-08-04 16:21 | PM.GICN ---
History of Present Illness Data of Consult Service Date: 08/04/21 Primary Care Provider: Elías Arce III, MD HPI Reason for consult: suncope, GI bleed 76-year-old male with CAD, diffuse vasculopathy status post coronary bypass grafting in the past status post left carotid endarterectomy with a known total occlusion of the right internal carotid artery, chronic kidney disease, diabetes, hepatitis-C, high cholesterol, hypertension, PVD brought to [facility] with dizziness and ?passing out at home.? Hx obtained from the patient and his who was at the bedside. 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 Per patient's the patient had a radical resection for a parotid malignancy with radical face and neck dissection by Dr Berrios at [facility] on 07/28/21. Pt was discharged on 08/03/21 and restarted Plavix 5 days earlier. Post operative course was complicated by hematuria (blood clots in the urine) and his Plavix was held for several days.? He had a Marques catheter placed and his Plavix was resumed on discharge. Hct was 29 % on 07/31/21. Pt has a FU appt next week at to discuss the next plan will be for the patient.? Today the patient was and shaving in the bathroom when his heard a loud bang and found the patient lying on the ground.? Pt reports ? melanotic stool felt weak and dizzy sitting down shaving and then he went to ground was witnessed to have bilateral movement seizure activity while unresponsive was brought in with blood pressure of 70 hemoglobin of 6 and given fluid 2 units of unmatched typo blood for transfusion? Patient denies symptoms of heartburn, dysphagia, change in appetite or weight. He has had nausea and a few episodes of non bloody emesis. Pt has black stools which she attributes to taking oral iron pills. He had a BM at 4 am today and another BM at 10:30/11 am associated with fecal incontinence when he fell/? he passed out Pt denies any BMs since arrival to the ED. Pt is on aspirin and Plavix due to vascular disease and sees Dr Dowd for his vascular disease Family history noncontributory due to advanced age. Labs showed H & H of 6.3 & 20.9 (decreased from 9.6 & 31.4 in 05/2021) Pt was transfused 2 U PRBC and repeat H & H is 8.7 & 28.1 IMAGING STUDIES: 08/04/[address] SCAN SHOWED: No acute findings in the abdomen or pelvis. No evidence of bleed. No acute pulmonary findings. Mild bronchial wall thickening which could be acute or chronic. ?Cholelithiasis.? ENDOSCOPIC STUDIES: 03/2020 Pt had an EGD and Colonoscopy by Dr Chavez for evaluation of anemia Endoscopy Findings: suspected Barretts Colonoscopy Findings: internal hemorrhoids polyps Plan: Await Pathology results Repeat Colonoscopy in 1-2 years or earlier if clinically indicated High fiber diet leaflet avoid straining at stool, epsom salts and sitz bath, anusol supps or cream prn capsule endoscopy if bx are negative Review of Systems Review of Systems: Yes all other systems are reviewed and are negative Constitutional: Constitutional: Reports no additional constitutional complaints, Denies body ache(s), Denies chills, Denies fever(s), Denies headache(s) and Denies weakness Eyes: Eyes: Reports no additional eye complaints and Denies change in vision ENT: Reports system reviewed and no additional complaints, except as documented, Reports dizziness, Denies headache(s), Denies nasal congestion, Denies nasal discharge and Denies neck pain Cardiovascular: Cardiovascular: Reports no additional cardiovascular complaints, Denies chest pain, Denies leg edema and Denies dyspnea Respiratory: Respiratory: Reports no additional respiratory complaints, Denies cough and Denies dyspnea Gastrointestinal: Gastrointestinal: Reports no additional gastrointestinal complaints, Denies abdominal pain, Denies diarrhea, Reports nausea and Reports vomiting Genitourinary: Genitourinary: Denies urinary incontinence Musculoskeletal: Musculoskeletal: Reports no additional musculoskeletal complaints, Denies back pain, Denies arthralgias, Denies joint swelling, Denies neck pain, Denies numbness and Denies tingling Integumentary/Breasts: Skin/Breast: Reports system reviewed and no additional complaints, except as docu and Denies rash Neurologic: Reports system reviewed and no additional complaints, except as documented, Reports dizziness, Denies headache(s), Denies numbness, Denies tingling and Denies weakness PMFSH Past Medical History 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 CAD (coronary artery disease) Chronic kidney disease, stage 3 CVA (cerebral vascular accident) Diabetes Difficult Marques catheter placement H/O cataract Hepatitis C High cholesterol HTN (hypertension) Hyperlipidemia Iron deficiency anemia due to chronic blood loss Metabolic acidosis with increased anion gap and accumulation of organic acids Metabolic acidosis with normal anion gap and bicarbonate losses Peripheral vascular disease Family History Family History Other CAD (coronary artery disease) Surgical History Surgical History History of ankle surgery History of esophagogastroduodenoscopy (EGD) Hx of colonoscopy S/P CABG (coronary artery bypass graft) (~2006) S/P carotid endarterectomy (~08/2018) Social History Social History Household Members: Spouse Housing: House Do you presently have visiting nurse or other home services: No Alcohol intake: never Patient Tobacco Use Status: Never used Tobacco e-Cigarette/Vaping Use: Never Used Use of substances other than those prescribed or required for medical reasons: Yes 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 Currently Displaying Signs/Symptoms of Drug Intoxication Withdrawal: No Have you been hit, kicked, punched, or otherwise hurt by someone within the past year? If so, by whom?: No Do you feel safe in your current relationship?: Yes Is there a partner from a previous relationship who is making you feel unsafe now?: No Are you made to feel afraid or neglected: No Advance Directives: Yes Advance Directives on File: Yes Advance Directives Date on File: 04/15/21 Do you have thoughts of harming others: None Do you have a plan to hurt others: No Plan Recently lost weight without trying: No Poor oral hygiene: No service: No Current occupational status: retired [employer] Allergies Allergy/AdvReac Type Severity Reaction Status Date / Time No Known Allergies Allergy Verified 01/07/21 09:26 [No Known Allergies*] Active Medications: Current Medications Pharmacy Consult (Consult Rx Perform Med Rec) 1 each MISCELLANE ONCE PRN PRN Reason: Consult order Home Medications Medication Instructions Recorded Confirmed Last Taken Type amlodipine 10 mg tablet 1 tab PO DAILY 04/22/20 08/04/21 08/04/21 History atorvastatin 40 mg tablet 1 tab PO BEDTIME 04/22/20 08/04/21 08/04/21 History clopidogrel 75 mg tablet 1 tab PO DAILY 04/22/20 08/04/21 08/04/21 History insulin glargine 100 unit/mL 80 unit SUBCUT BID 04/22/20 08/04/21 08/04/21 History subcutaneous solution (Lantus U-100 Insulin) insulin lispro 100 unit/mL 30 unit SUBCUT TID 04/22/20 08/04/21 08/04/21 History subcutaneous solution olmesartan 40 mg tablet 1 tab PO DAILY 04/22/20 08/04/21 08/04/21 History aspirin 81 mg tablet,delayed 81 mg PO DAILY 05/19/20 08/04/21 08/04/21 History release (Adult Low Dose Aspirin) gemfibrozil 600 mg tablet 600 mg PO BID 05/19/20 08/04/21 08/04/21 History hydralazine 100 mg tablet 100 mg PO BID tab 05/19/20 08/04/21 08/04/21 History omeprazole 20 mg capsule,delayed 1 cap PO DAILY 05/24/20 08/04/21 08/04/21 History release insulin syringe-needle U-100 1 mL #10 ea 09/21/20 08/04/21 08/04/21 History 28 gauge x 1/2 docosahexaenoic acid (dha)-epa 1 cap PO DAILY 04/14/21 08/04/21 08/04/21 History capsule furosemide 20 mg tablet 1 tab PO DAILY 08/04/21 08/04/21 08/04/21 History metoprolol succinate 200 mg 0.5 tab PO BID 08/04/21 08/04/21 08/04/21 History tablet,extended release 24 hr spironolactone 25 mg tablet 1 tab PO DAILY 08/04/21 08/04/21 08/04/21 History Physical Exam Vital Signs: Vital Signs: Last Vital Signs Temp 95.0 F L 08/04/21 16:01 Pulse 76 08/04/21 16:01 Resp 18 08/04/21 16:01 BP 120/46 L 08/04/21 16:01 Pulse Ox 100 08/04/21 15:03 BMI result Body Mass Index 32.9 Const: General: no acute distress, anxious and ill appearing Nutritional Appearance: obese Orientation/consciousness: patient oriented x3 Limitations: no limitations HEENT: Head: Yes normal to inspection Ears: hearing grossly normal bilaterally Mouth: Normal oral and palatal mucosa present Eyes: Sclerae: sclerae normal Pupils: Equal, round and reactive pupils present Neck: Neck: Yes normal visual inspection and Yes other (healing incision left side of neck with jamia in place) Chest: Chest palpation & inspection: normal inspection of the chest Resp: Effort & Inspection: normal respiratory effort Auscultation: clear to auscultation bilaterally Cardio: Palpation: normal PMI Rate: regular rate Rhythm: regular rhythm Heart sounds: S1 normal heart sound present, S2 normal heart sound present and no murmurs GI: Palpation (GI): Soft to palpation, nontender and No hepatosplenomegaly present Auscultation: normal bowel sounds Rectal Exam - Male: Yes deferred Skin: General skin exam: no rashes or lesions noted Neuro: General: patient oriented x3, gait normal and moves all extremities Cranial nerves: Yes Equal, round and reactive pupils present Psych: Appearance: grossly normal Mental Status: mental status grossly normal Results Labs CBC & Chem 7: 08/05/21 12:19 08/05/21 05:28 Labs: Short CBC 08/04/21 Range/Units 13:23 WBC 20.6 H (4.8-10.8) X10*3/uL Hgb 6.3 L* D (14.0-18.0) g/dl Hct 20.9 L* D (42.0-52.0) % Plt Count 450 H (160-400) X10*3/uL BMP 08/04/21 13:23 Sodium 139 Potassium 4.1 Chloride 108 Carbon Dioxide 15 L BUN 64 H D Creatinine 2.08 H Calcium 9.6 Cardiac Enzymes 08/04/21 Range/Units 13:23 Total Creatine Kinase 34 L (38-174) U/L Liver Function 08/04/21 Range/Units 13:23 Total Bilirubin 0.3 (0.0-1.0) mg/dL Direct Bilirubin 0.2 (0.0-0.5) mg/dL AST 9 D (5-37) U/L ALT 8 (0-40) U/L Alkaline Phosphatase 123 H (39-117) U/L Albumin 3.9 (3.5-5.0) g/dL Urine 08/04/21 Range/Units 14:56 Urine Color YELLOW Urine Appearance TURBID Urine pH 5.5 (5.0-8.0) Ur Specific [place] 1.015 (1.005-1.025) Urine Protein NEG (NEG-TRACE) MG/DL Urine Glucose (UA) NEG (NEG) MG/DL Assessment and Plan (1) Anemia: Status: Acute (2) Acute GI bleeding: Status: Acute Plan 76 YM with CAD, chronic kidney disease, diabetes, hepatitis-C, high cholesterol, hypertension, PVD brought to [facility] [place] with dizziness and ?passing out at home.? Pt is status post left parotidectomy a week ago followed by hematuria.? Pt is on aspirin and Plavix due to vascular disease and sees Dr Dowd for his vascular disease Labs showed H & H of 6.3 & 20.9 (decreased from 9.6 & 31.4 in 05/2021) Pt was transfused 2 U PRBC and repeat H & H is 8.7 & 28.1 Severe anemia is likely multifactorial - recent surgery followed by hematuria and worsened by suspected GI bleed today UGI can be from PUD, erosive esophagitis or stress gastritis. RECOMMENDATIONS: 1. Monitor H & H Q 8 hrly x 24 hrs 2. Agree with IV PPI and antiemetics. 3. I will schedule the patient for an upper endoscopy in the a.m. 4. Hold aspirn and Plavix for now. Procedures Date of Service Date of Service: 08/04/21
[2021-08-04 16:34] LABS: MANUAL DIFF FLAG NO
[2021-08-04 16:37] LABS: Basophils Absolute Auto 0.1 X10*3/uL (0.0-0.2); Basophils Percent Auto 0.3 % (0-2); Eosinophils Percent Auto 0.1 % (0-4); Hematocrit 28.1 % (42.0-52.0); Hemoglobin 8.7 g/dl (14.0-18.0); Imm Gran Abs Auto 0.31 X10*3/uL (0.00-0.03); Imm Gran Pct Auto 1.9 % (0.0-0.4); Lymphocytes Absolute Auto 0.6 X10*3/uL (1.2-4.9); Lymphocytes Percent Auto 3.8 % (20-40); Mean Corpuscular Hemoglobin 28.6 pg (27.0-33.0); Mean Corpuscular Volume 92.4 fL (80.0-98.0); Mean Platelet Volume 10.1 fL (9.4-12.4); Monocytes Absolute Auto 1.4 X10*3/uL (0.1-1.2); Monocytes Percent Auto 8.2 % (2-11); Neutrophils Absolute Auto 14.3 x10*3/uL (2.0-8.3); Neutrophils Percent Auto 85.7 % (45-73); Platelet Count 347 X10*3/uL (160-400); Red Blood Count 3.04 X10*6/uL (4.60-5.80); Red Cell Distribution Width 14.6 % (11.0-16.0); White Blood Count 16.7 X10*3/uL (4.8-10.8)
[2021-08-04] MEDS: Pantoprazole Sodium 40 MG/10 ML VIAL 80 MG IVPUSH (16:42)
--- NOTE | 2021-08-04 16:45 | PC.NURSE ---
pt is caox4, pt denies discomfort at this time py is in nsr in lead 2. pt resps are = and nonlabored. ls diminished but no adventitious ls noted. damir vidales has spoken ith jean paul leary, plan is to admit pt to [facility] [place]. pt is aware and agreeable to plan of care.
[2021-08-04 16:47] LABS: ~Lactic Acid-LAB USE ONLY 1.5 mmol/L (0.5-2.0)
--- NOTE | 2021-08-04 17:18 | PM.CCHP ---
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 discharged and restarted Plavix 5 days earlier had melanotic stool felt weak and dizzy sitting down shaving and then he went to ground was witnessed to have bilateral movement seizure activity while unresponsive no associated incontinence was brought in with blood pressure of 70 hemoglobin of 6 given fluid 2 units of unmatched typo blood for transfusion he is now awake alert wall moves well perfused blood pressure 120 systolic sinus rhythm and nonfocal neurologically except for some mild facial asymmetry Review of Systems Review of Systems: No associated chest pain no shortness of breath no hematemesis no hematochezia PMFSH Past Medical History Medical History (Updated 08/05/21 @ 08:48 by Shreya Raman MD) Acute kidney injury 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 CAD (coronary artery disease) Chronic kidney disease, stage 3 CVA (cerebral vascular accident) Diabetes Difficult Marques catheter placement H/O cataract Hepatitis C High cholesterol HTN (hypertension) Hyperlipidemia Iron deficiency anemia due to chronic blood loss Metabolic acidosis with increased anion gap and accumulation of organic acids Metabolic acidosis with normal anion gap and bicarbonate losses Peripheral vascular disease Family History Family History Other CAD (coronary artery disease) Surgical History Surgical History History of ankle surgery History of esophagogastroduodenoscopy (EGD) Hx of colonoscopy S/P CABG (coronary artery bypass graft) (~2006) S/P carotid endarterectomy (~08/2018) Social History Social History Household Members: Spouse Housing: House Do you presently have visiting nurse or other home services: No Alcohol intake: never Patient Tobacco Use Status: Never used Tobacco e-Cigarette/Vaping Use: Never Used Use of substances other than those prescribed or required for medical reasons: Yes 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 Have you been hit, kicked, punched, or otherwise hurt by someone within the past year? If so, by whom?: No Do you feel safe in your current relationship?: Yes Is there a partner from a previous relationship who is making you feel unsafe now?: No Are you made to feel afraid or neglected: No Advance Directives: Yes Advance Directives on File: Yes Advance Directives Date on File: 04/15/21 Do you have thoughts of harming others: None Do you have a plan to hurt others: No Plan Recently lost weight without trying: No Poor oral hygiene: No service: No Current occupational status: retired [employer] Allergies Allergy/AdvReac Type Severity Reaction Status Date / Time No Known Allergies Allergy Verified 01/07/21 09:26 [No Known Allergies*] Active Medications: Current Medications Pharmacy Consult (Consult Rx Perform Med Rec) 1 each MISCELLANE ONCE PRN PRN Reason: Consult order Home Medications Medication Instructions Recorded Confirmed Last Taken Type amlodipine 10 mg tablet 1 tab PO DAILY 04/22/20 08/04/21 08/04/21 History atorvastatin 40 mg tablet 1 tab PO BEDTIME 04/22/20 08/04/21 08/04/21 History clopidogrel 75 mg tablet 1 tab PO DAILY 04/22/20 08/04/21 08/04/21 History insulin glargine 100 unit/mL 80 unit SUBCUT BID 04/22/20 08/04/21 08/04/21 History subcutaneous solution (Lantus U-100 Insulin) insulin lispro 100 unit/mL 30 unit SUBCUT TID 04/22/20 08/04/21 08/04/21 History subcutaneous solution olmesartan 40 mg tablet 1 tab PO DAILY 04/22/20 08/04/21 08/04/21 History aspirin 81 mg tablet,delayed 81 mg PO DAILY 05/19/20 08/04/21 08/04/21 History release (Adult Low Dose Aspirin) gemfibrozil 600 mg tablet 600 mg PO BID 05/19/20 08/04/21 08/04/21 History hydralazine 100 mg tablet 100 mg PO BID tab 05/19/20 08/04/21 08/04/21 History omeprazole 20 mg capsule,delayed 1 cap PO DAILY 05/24/20 08/04/21 08/04/21 History release insulin syringe-needle U-100 1 mL #10 ea 09/21/20 08/04/21 08/04/21 History 28 gauge x 1/2 docosahexaenoic acid (dha)-epa 1 cap PO DAILY 04/14/21 08/04/21 08/04/21 History capsule furosemide 20 mg tablet 1 tab PO DAILY 08/04/21 08/04/21 08/04/21 History metoprolol succinate 200 mg 0.5 tab PO BID 08/04/21 08/04/21 08/04/21 History tablet,extended release 24 hr spironolactone 25 mg tablet 1 tab PO DAILY 08/04/21 08/04/21 08/04/21 History Physical Exam Vital Signs: Vital Signs: Last Vital Signs Temp 96.6 F L 08/04/21 16:48 Pulse 75 08/04/21 16:48 Resp 18 08/04/21 16:48 BP 131/55 L 08/04/21 16:48 Pulse Ox 98 08/04/21 16:48 BMI result Body Mass Index 32.9 And in the emergency room status post fluid in 2 unit transfusion pressure was over 100 patient was awake and alert mild facial asymmetry but speech was fluent strength equal on both sides Lungs were clear with no adventitious sounds Bedside echo for cardiac function showed ejection fraction estimate 35-40% with septal paradox probably of post pericardiotomy phenomenon Peripherally skin was intact with no acrocyanosis Abdomen obese but nontender with good bowel sounds and no organomegaly Results Labs CBC and Chem 7: 08/05/21 05:29 08/05/21 05:28 Labs: Laboratory Results - last 24 hr 08/04/21 08/04/21 08/04/21 13:20 13:23 13:23 MCV 92.9 MCH 28.0 MCHC 30.1 L RDW 14.6 Plt Count 450 H MPV 10.3 Immature Gran % (Auto) 2.5 H Neut % (Auto) 73.1 H Lymph % (Auto) 13.8 L [place] % (Auto) 9.5 Eos % (Auto) 0.8 Baso % (Auto) 0.3 Lymph # (Auto) 2.8 [place] # (Auto) 2.0 H Eos # (Auto) 0.2 Baso # (Auto) 0.1 Abs Immat Gran (auto) 0.51 H Absolute Neuts (auto) 15.0 H Absolute Nucleated RBC 0.000 Nucleated RBC % (auto) 0.0 Smear Tech's Comments VERIFIED PT INR Anion Gap 20 Creatinine 2.08 H Estim Creat Clear Calc TNP Estimated GFR 31 POC Glucose 221 H Random Glucose 258 H D Lactic Acid Lactic Acid F/U @ 2Hr Calcium 9.6 Magnesium 2.2 Total Bilirubin 0.3 Direct Bilirubin 0.2 AST 9 D ALT 8 Alkaline Phosphatase 123 H Total Creatine Kinase 34 L Troponin I High Sens Total Protein 6.0 L Albumin 3.9 Urine Color Urine Appearance Urine pH Ur Specific [place] Urine Protein Urine Glucose (UA) Urine Ketones Urine Blood Urine Nitrite Ur Leukocyte Esterase Urine RBC Urine WBC Ur Squamous Epith Cells Urine Bacteria Urine Yeast Stool Occult Blood COVID-19 (NEL) Social Project Blood Type Antibody Screen Crossmatch 08/04/21 08/04/21 08/04/21 13:23 13:23 13:34 MCV MCH MCHC RDW Plt Count MPV Immature Gran % (Auto) Neut % (Auto) Lymph % (Auto) [place] % (Auto) Eos % (Auto) Baso % (Auto) Lymph # (Auto) [place] # (Auto) Eos # (Auto) Baso # (Auto) Abs Immat Gran (auto) Absolute Neuts (auto) Absolute Nucleated RBC Nucleated RBC % (auto) Smear Tech's Comments PT INR Anion Gap Creatinine Estim Creat Clear Calc Estimated GFR POC Glucose Random Glucose Lactic Acid 5.2 H* Lactic Acid F/U @ 2Hr Calcium Magnesium Total Bilirubin Direct Bilirubin AST ALT Alkaline Phosphatase Total Creatine Kinase Troponin I High Sens 8.0 Total Protein Albumin Urine Color Urine Appearance Urine pH Ur Specific [place] Urine Protein Urine Glucose (UA) Urine Ketones Urine Blood Urine Nitrite Ur Leukocyte Esterase Urine RBC Urine WBC Ur Squamous Epith Cells Urine Bacteria Urine Yeast Stool Occult Blood COVID-19 (NEL) Negative COVIDTYT ([place]) See Note Blood Type Antibody Screen Crossmatch 08/04/21 08/04/21 08/04/21 14:55 14:55 14:56 MCV MCH MCHC RDW Plt Count MPV Immature Gran % (Auto) Neut % (Auto) Lymph % (Auto) [place] % (Auto) Eos % (Auto) Baso % (Auto) Lymph # (Auto) [place] # (Auto) Eos # (Auto) Baso # (Auto) Abs Immat Gran (auto) Absolute Neuts (auto) Absolute Nucleated RBC Nucleated RBC % (auto) Smear Tech's Comments PT 13.0 INR 1.1 Anion Gap Creatinine Estim Creat Clear Calc Estimated GFR POC Glucose Random Glucose Lactic Acid Lactic Acid F/U @ 2Hr Calcium Magnesium Total Bilirubin Direct Bilirubin AST ALT Alkaline Phosphatase Total Creatine Kinase Troponin I High Sens Total Protein Albumin Urine Color Urine Appearance Urine pH Ur Specific [place] Urine Protein Urine Glucose (UA) Urine Ketones Urine Blood Urine Nitrite Ur Leukocyte Esterase Urine RBC Urine WBC Ur Squamous Epith Cells Urine Bacteria Urine Yeast Stool Occult Blood POSITIVE COVID-19 (NEL) [email or web address] Com Blood Type O Positive Antibody Screen NEGATIVE Crossmatch See Detail 08/04/21 08/04/21 08/04/21 14:56 16:29 16:29 MCV 92.4 MCH 28.6 MCHC 31.0 RDW 14.6 Plt Count 347 MPV 10.1 Immature Gran % (Auto) 1.9 H Neut % (Auto) 85.7 H Lymph % (Auto) 3.8 L [place] % (Auto) 8.2 Eos % (Auto) 0.1 Baso % (Auto) 0.3 Lymph # (Auto) 0.6 L [place] # (Auto) 1.4 H Eos # (Auto) 0.0 Baso # (Auto) 0.1 Abs Immat Gran (auto) 0.31 H Absolute Neuts (auto) 14.3 H Absolute Nucleated RBC 0.000 Nucleated RBC % (auto) 0.0 Smear Tech's Comments PT INR Anion Gap Creatinine Estim Creat Clear Calc Estimated GFR POC Glucose Random Glucose Lactic Acid Lactic Acid F/U @ 2Hr 1.5 Calcium Magnesium Total Bilirubin Direct Bilirubin AST ALT Alkaline Phosphatase Total Creatine Kinase Troponin I High Sens Total Protein Albumin Urine Color YELLOW Urine Appearance TURBID Urine pH 5.5 Ur Specific [place] 1.015 Urine Protein NEG Urine Glucose (UA) NEG Urine Ketones NEG Urine Blood 1+ H Urine Nitrite NEG Ur Leukocyte Esterase 1+ H Urine RBC 5-9 H Urine WBC 1-4 Ur Squamous Epith Cells NONE Urine Bacteria 1+ Urine Yeast 1+ Stool Occult Blood COVID-19 (NEL) COVID-19 [employer] Com Blood Type Antibody Screen Crossmatch Imaging Radiologist's Impressions: Impressions Head/Neck CTA 08/04/21 14:12 IMPRESSION: - Partially imaged postoperative changes following partial left parotidectomy. There is soft tissue density associated with the left parotidectomy bed, most likely postoperative hematoma with superimposed foci of subcutaneous gas. Mild hematoma tracks superficial to the left sternocleidomastoid muscle and lateral to the left submandibular gland. I cannot assess for residual tumor given the degree of postoperative change. - A partially calcified right level IIb lymph node on image 698 of series 10 measuring up to 1.6 cm in size which is similar to the 03/09/[address] As discussed previously, a metastatic lymph node is of concern. - Atherosclerotic calcification results in a severe stenosis of left supraclinoid ICA segment. - Stable appearing chronic occlusion of the right internal carotid artery throughout the neck and intracranially to the level of the reconstituted supraclinoid right ICA segment where there is an additional severe tandem stenosis. - Atherosclerotic calcification results in moderate to severe stenoses of the intradural vertebral arteries bilaterally. - Atherosclerotic calcification results in severe stenoses of the vertebral artery origins bilaterally. Abdomen/Pelvis CT 08/04/21 14:30 IMPRESSION: No acute findings in the abdomen or pelvis. No evidence of bleed. No acute pulmonary findings. Mild bronchial wall thickening which could be acute or chronic. Cholelithiasis. Chest CT 08/04/21 14:30 IMPRESSION: No acute findings in the abdomen or pelvis. No evidence of bleed. No acute pulmonary findings. Mild bronchial wall thickening which could be acute or chronic. Cholelithiasis. 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 (12) Diarrhea: Status: Acute (13) Peripheral vascular disease: Status: Acute (14) Metabolic acidosis with increased anion gap and accumulation of organic acids: Status: Acute (15) Metabolic acidosis with normal anion gap and bicarbonate losses: Status: Acute Plan So this seizure I believe is a hemodynamic 1 given the collateralization of the right cerebral circulation all being precipitated by the GI blood loss and we will keep that repleted and hopefully stable enough to submit for endoscopy and definitive therapy and in the meantime keep him off aspirin and Plavix and for fever which might just simply be be due to the extent of the dissection procedure that he had we will culture and cover him for the wound empirically and possible C diff because of previous antibiotics until we get back a true negative
--- NOTE | 2021-08-04 18:10 | PC.NURSE ---
pt c/o shivering, resps remain nonlabored and clear, no utricaria noted. damir vidales made aware debo de luna d/cd pt remians nsr lead2
[2021-08-04] MEDS: cefTRIAXone sodium 1 GM in 0.9 % Sodium Chloride 50 ML IV (18:12)
[2021-08-04] MEDS: Lactated Ringers 1,000 ML 100 ML IVCONT (19:26)
--- NOTE | 2021-08-04 20:00 | PC.NURSE ---
1900 pt admitted to icu, alert and oriented x4. Temp 101.5, all other vitals stable. Repeat blood cultures drawn and tylenol administered. Marques present from home, urine clear yellow with small blood clots. Pt remains npo for procedure. Blanchable redness to buttocks. Surgical incision with jamia to left ear and neck intact, bacitracin applied per jun. Pt's updated. Call carter within reach.
[2021-08-04 20:17] LABS: MANUAL DIFF FLAG NO
[2021-08-04 20:18] LABS: VBG Base Excess -9.5 mmol/L; VBG HCO3 13 mmol/L (22-26); VBG pCO2 22 mmHg; VBG pH 7.39 (7.32-7.43); VBG pO2 83 mmHg
[2021-08-04 20:22] LABS: Basophils Percent Auto 0.2 % (0-2); Hematocrit 25.2 % (42.0-52.0); Hemoglobin 8.2 g/dl (14.0-18.0); Imm Gran Abs Auto 0.13 X10*3/uL (0.00-0.03); Imm Gran Pct Auto 0.8 % (0.0-0.4); Lymphocytes Absolute Auto 0.5 X10*3/uL (1.2-4.9); Mean Corpuscular HGB Conc 32.5 g/dl (31.0-36.0); Mean Corpuscular Hemoglobin 29.3 pg (27.0-33.0); Mean Platelet Volume 9.6 fL (9.4-12.4); Monocytes Absolute Auto 1.3 X10*3/uL (0.1-1.2); Neutrophils Absolute Auto 14.3 x10*3/uL (2.0-8.3); Platelet Count 305 X10*3/uL (160-400); Red Cell Distribution Width 14.6 % (11.0-16.0); White Blood Count 16.2 X10*3/uL (4.8-10.8)
[2021-08-04 20:39] LABS: Anion Gap 13 (12-20); Blood Urea Nitrogen 54 mg/dL (9-16); Calcium 8.5 mg/dL (8.4-10.2); Carbon Dioxide 18 mmol/L (22-29); Chloride 111 mmol/L (96-108); Creatinine Clr Calc Pharmacy 50.6; Estimated Glomerular Filt Rate 46; Glucose Random 178 mg/dL (60-115); Potassium 4.4 mmol/L (3.3-5.1); Sodium 138 mmol/L (135-145)
[2021-08-04] MEDS: vancomycin HCL 1,000 MG in 0.9 % Sodium Chloride 250 ML 270 MG IV (20:42)
[2021-08-04] MEDS: metroNIDAZOLE/NS 500 MG/100 ML PIGGYBACK 100 MG IV (20:43)
[2021-08-04 21:16] LABS: Glucose, Whole Blood 161 mg/dL (60-115)
[2021-08-04] MEDS: Bacitracin Oint 14 GM TUBE 1 APPL TOPICAL (21:16)
[2021-08-04 21:42] LABS: Venous Blood Gas Refer to POC result
[2021-08-05] VITALS (26 sets, daily range): BP systolic 94–149; BP diastolic 36–66; PULSE 57–84; RESP 12–24; TEMP 36.7–37.5; O2SAT 89–100; BMI 33.3; BMI 33.2
[2021-08-05] MEDS: Lactated Ringers 1,000 ML 100 ML IVCONT ×2 (05:11→16:24)
[2021-08-05] MEDS: Pantoprazole Sodium 40 MG/10 ML VIAL IVPUSH (05:12)
[2021-08-05 05:32] LABS: VBG Base Excess -7.7 mmol/L; VBG HCO3 16 mmol/L (22-26); VBG pCO2 26 mmHg; VBG pH 7.38 (7.32-7.43); VBG pO2 47 mmHg
[2021-08-05 05:37] LABS: Venous Blood Gas Refer to POC result
[2021-08-05 05:43] LABS: MANUAL DIFF FLAG NO
[2021-08-05 05:46] LABS: Basophils Percent Auto 0.2 % (0-2); Eosinophils Percent Auto 0.1 % (0-4); Hematocrit 23.3 % (42.0-52.0); Hemoglobin 7.3 g/dl (14.0-18.0); Imm Gran Abs Auto 0.09 X10*3/uL (0.00-0.03); Imm Gran Pct Auto 0.6 % (0.0-0.4); Lymphocytes Absolute Auto 1.2 X10*3/uL (1.2-4.9); Lymphocytes Percent Auto 7.6 % (20-40); Mean Corpuscular HGB Conc 31.3 g/dl (31.0-36.0); Mean Corpuscular Hemoglobin 28.9 pg (27.0-33.0); Mean Corpuscular Volume 92.1 fL (80.0-98.0); Monocytes Absolute Auto 1.5 X10*3/uL (0.1-1.2); Monocytes Percent Auto 8.9 % (2-11); Neutrophils Absolute Auto 13.4 x10*3/uL (2.0-8.3); Neutrophils Percent Auto 82.6 % (45-73); Platelet Count 311 X10*3/uL (160-400); Red Blood Count 2.53 X10*6/uL (4.60-5.80); Red Cell Distribution Width 14.8 % (11.0-16.0); White Blood Count 16.2 X10*3/uL (4.8-10.8)
[2021-08-05 06:09] LABS: Alanine Aminotransferase 7 U/L (0-40); Albumin Level 3.2 g/dL (3.5-5.0); Alkaline Phosphatase 98 U/L (39-117); Anion Gap 12 (12-20); Aspartate Amino Transferase 11 U/L (5-37); Bilirubin Total 0.4 mg/dL (0.0-1.0); Blood Urea Nitrogen 52 mg/dL (9-16); Calcium 8.6 mg/dL (8.4-10.2); Carbon Dioxide 20 mmol/L (22-29); Chloride 114 mmol/L (96-108); Creatinine Clr Calc Pharmacy 46.8; Estimated Glomerular Filt Rate 41; Glucose Random 136 mg/dL (60-115); Magnesium 2.1 mg/dL (1.6-2.6); Phosphorus 3.8 mg/dL (2.7-4.5); Potassium 4.2 mmol/L (3.3-5.1); Sodium 142 mmol/L (135-145); Total Protein 5.2 g/dL (6.5-8.0)
[2021-08-05 07:09] LABS: Glucose, Whole Blood 135 mg/dL (60-115)
[2021-08-05] MEDS: metroNIDAZOLE/NS 500 MG/100 ML PIGGYBACK 100 MG IV (07:25)
[2021-08-05] MEDS: Bacitracin Oint 14 GM TUBE 1 APPL TOPICAL ×2 (09:06→20:36)
--- NOTE | 2021-08-05 09:07 | P.CDIC_ITS ---
CDI Concurrent Query Documentation Clarification: PHYSICIAN'S DOCUMENTATION REQUEST Date of Query: 08/05/21 0908 Patient Name: John Faulkner Admit Date: 08/04/21 Dear Doctor, A review of the medical record indicates additional documentation may be needed. Please review below and update the documentation accordingly. Clinical Indicators: Risk Factors/Clinical Indicators/Treatments GI notes 08/04 - GI bleed, severe anemia is likely multifactorial, recent surgery followed by Hematuria. HGB 6.3 HCT 20.9 BP 72/71 L Transfused 2 units PRBC. Based on the above, could you clarify in the Progress Notes which of the following is the most likely type of anemia you are evaluating, treating, and/or monitoring? * Acute blood loss anemia * Iron deficiency anemia due to acute on chronic blood loss * Other ? please specify * Unable to determine Use of terms such as suspected, likely, concern for, or probable (associated with a specific diagnosis that is being evaluated, monitored, or treated as if it exists) are acceptable and can be coded in the inpatient setting, when documented at the time of discharge. Acute blood loss anemia Thank you, Sandee Holcomb [facility], CDIS Extension: [phone] Please use your independent medical judgment in providing your response. THIS QUERY IS PART OF THE PERMANENT MEDICAL RECORD Provider Response: Acute Blood Loss Anemia
--- NOTE | 2021-08-05 09:39 | HO.ANESPROP2 ---
[facility] Active Problems Active Problems: All Active Problems (Updated 08/05/21 @ 08:48 by Shreya Raman MD) Metabolic acidosis with normal anion gap and bicarbonate losses (Acute) Metabolic acidosis with increased anion gap and accumulation of organic acids (Acute) Syncope (Acute) Anemia (Acute) GIB (gastrointestinal bleeding) (Acute) DOMENICO (acute kidney injury) (Acute) Acute hypotension (Acute) Acute GI bleeding (Acute) Anemia (Acute) Acute urinary retention (Acute) Bilateral carotid artery stenosis (Acute) Adenomatous colon polyp (Acute) Johnson esophagus (Acute) Diarrhea (Acute) Peripheral vascular disease (Acute) Past Medical History 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 CAD (coronary artery disease) Chronic kidney disease, stage 3 CVA (cerebral vascular accident) Diabetes Difficult Marques catheter placement H/O cataract Hepatitis C High cholesterol HTN (hypertension) Hyperlipidemia Iron deficiency anemia due to chronic blood loss Metabolic acidosis with increased anion gap and accumulation of organic acids Metabolic acidosis with normal anion gap and bicarbonate losses Peripheral vascular disease Family History Family History Other CAD (coronary artery disease) Surgical History Surgical History History of ankle surgery History of esophagogastroduodenoscopy (EGD) Hx of colonoscopy S/P CABG (coronary artery bypass graft) (~2006) S/P carotid endarterectomy (~08/2018) History of Problems with Anesthesia: No Social History Social History Household Members: Spouse Housing: House Do you presently have visiting nurse or other home services: No Alcohol intake: never Patient Tobacco Use Status: Never used Tobacco e-Cigarette/Vaping Use: Never Used Use of substances other than those prescribed or required for medical reasons: Yes 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 Currently Displaying Signs/Symptoms of Drug Intoxication Withdrawal: No Have you been hit, kicked, punched, or otherwise hurt by someone within the past year? If so, by whom?: No Do you feel safe in your current relationship?: Yes Is there a partner from a previous relationship who is making you feel unsafe now?: No Are you made to feel afraid or neglected: No Advance Directives: Yes Advance Directives on File: Yes Advance Directives Date on File: 04/15/21 Do you have thoughts of harming others: None Do you have a plan to hurt others: No Plan Recently lost weight without trying: No Poor oral hygiene: No service: No Current occupational status: retired Meds Allergies Allergy/AdvReac Type Severity Reaction Status Date / Time No Known Allergies Allergy Verified 01/07/21 09:26 [No Known Allergies*] Active Medications: Current Medications Bacitracin (Bacitracin Oint 14 Gm Tube) 1 appl TOPICAL BID [facility]; Protocol Last Admin: 08/05/21 09:06 Dose: 1 appl Documented by: Dextrose (Dextrose 50 % 25 Gm/50 Ml Syringe) 25 gm IVPUSH Q15M PRN; Protocol PRN Reason: per Hypoglycemia Standing Ord. Glucose (Glucose Gel 15 Gm Gel..Gram.) 15 gm PO Q15M PRN; Protocol PRN Reason: per Hypoglycemia Standing Ord. Lactated Ringer's (Lr) 1,000 mls @ 100 mls/hr IVCONT .Q10H [facility] Last Admin: 08/05/21 05:11 Dose: 100 mls/hr Documented by: Insulin Human Lispro (Insulin Lispro 100 Unit/Ml 3 Ml Vial) 0 unit SUBCUT QIDACHS [facility]; Protocol Stop: 08/05/21 17:26 Last Admin: 08/05/21 07:15 Dose: Not Given Documented by: Pharmacy Consult (Consult Rx Perform Med Rec) 1 each MISCELLANE ONCE PRN PRN Reason: Consult order Home Medications Medication Instructions Recorded Confirmed Last Taken Type amlodipine 10 mg tablet 1 tab PO DAILY 04/22/20 08/04/21 08/04/21 History atorvastatin 40 mg tablet 1 tab PO BEDTIME 04/22/20 08/04/21 08/04/21 History clopidogrel 75 mg tablet 1 tab PO DAILY 04/22/20 08/04/21 08/04/21 History insulin glargine 100 unit/mL 80 unit SUBCUT BID 04/22/20 08/04/21 08/04/21 History subcutaneous solution (Lantus U-100 Insulin) insulin lispro 100 unit/mL 30 unit SUBCUT TID 04/22/20 08/04/21 08/04/21 History subcutaneous solution olmesartan 40 mg tablet 1 tab PO DAILY 04/22/20 08/04/21 08/04/21 History aspirin 81 mg tablet,delayed 81 mg PO DAILY 05/19/20 08/04/21 08/04/21 History release (Adult Low Dose Aspirin) gemfibrozil 600 mg tablet 600 mg PO BID 05/19/20 08/04/21 08/04/21 History hydralazine 100 mg tablet 100 mg PO BID tab 05/19/20 08/04/21 08/04/21 History omeprazole 20 mg capsule,delayed 1 cap PO DAILY 05/24/20 08/04/21 08/04/21 History release insulin syringe-needle U-100 1 mL #10 ea 09/21/20 08/04/21 08/04/21 History 28 gauge x 1/2 docosahexaenoic acid (dha)-epa 1 cap PO DAILY 04/14/21 08/04/21 08/04/21 History capsule furosemide 20 mg tablet 1 tab PO DAILY 08/04/21 08/04/21 08/04/21 History metoprolol succinate 200 mg 0.5 tab PO BID 08/04/21 08/04/21 08/04/21 History tablet,extended release 24 hr spironolactone 25 mg tablet 1 tab PO DAILY 08/04/21 08/04/21 08/04/21 History Exam Exam Date and Time: August 05, 2021 0939 Height,Weight and Vital Signs: Height 5 ft 10 in Weight 105 kg Last Vital Signs Temp 98.4 F 08/05/21 09:00 Pulse 64 08/05/21 09:00 Resp 16 08/05/21 09:00 BP 146/49 H 08/05/21 09:00 Pulse Ox 89 L 08/05/21 09:00 Oxygen Flow Rate 2 08/04/21 17:22 Pertinent Lab Results Pertinent Lab Results: Laboratory Tests 08/04/21 08/04/21 08/04/21 13:20 13:23 13:23 WBC 20.6 H RBC 2.25 L D Hgb 6.3 L* D Hct 20.9 L* D MCV 92.9 MCH 28.0 MCHC 30.1 L RDW 14.6 Plt Count 450 H MPV 10.3 Immature Gran % (Auto) 2.5 H Neut % (Auto) 73.1 H Lymph % (Auto) 13.8 L [place] % (Auto) 9.5 Eos % (Auto) 0.8 Baso % (Auto) 0.3 Lymph # (Auto) 2.8 [place] # (Auto) 2.0 H Eos # (Auto) 0.2 Baso # (Auto) 0.1 Abs Immat Gran (auto) 0.51 H Absolute Neuts (auto) 15.0 H Absolute Nucleated RBC 0.000 Nucleated RBC % (auto) 0.0 Smear Tech's Comments VERIFIED PT INR VBG pH VBG pCO2 VBG pO2 VBG HCO3 VBG O2 Saturation VBG Base Excess Sodium 139 Potassium 4.1 Chloride 108 Carbon Dioxide 15 L Anion Gap 20 BUN 64 H D Creatinine 2.08 H Estim Creat Clear Calc TNP Estimated GFR 31 POC Glucose 221 H Random Glucose 258 H D Lactic Acid Lactic Acid F/U @ 2Hr Calcium 9.6 Phosphorus Magnesium 2.2 Total Bilirubin 0.3 Direct Bilirubin 0.2 AST 9 D ALT 8 Alkaline Phosphatase 123 H Total Creatine Kinase 34 L Troponin I High Sens Total Protein 6.0 L Albumin 3.9 Urine Color Urine Appearance Urine pH Ur Specific [place] Urine Protein Urine Glucose (UA) Urine Ketones Urine Blood Urine Nitrite Ur Leukocyte Esterase Urine RBC Urine WBC Ur Squamous Epith Cells Urine Bacteria Urine Yeast Stool Occult Blood COVID-19 (NEL) COVID-19 Clin Com Blood Type Antibody Screen Crossmatch 08/04/21 08/04/21 08/04/21 13:23 13:23 13:34 WBC RBC Hgb Hct MCV MCH MCHC RDW Plt Count MPV Immature Gran % (Auto) Neut % (Auto) Lymph % (Auto) [place] % (Auto) Eos % (Auto) Baso % (Auto) Lymph # (Auto) [place] # (Auto) Eos # (Auto) Baso # (Auto) Abs Immat Gran (auto) Absolute Neuts (auto) Absolute Nucleated RBC Nucleated RBC % (auto) Smear Tech's Comments PT INR VBG pH VBG pCO2 VBG pO2 VBG HCO3 VBG O2 Saturation VBG Base Excess Sodium Potassium Chloride Carbon Dioxide Anion Gap BUN Creatinine Estim Creat Clear Calc Estimated GFR POC Glucose Random Glucose Lactic Acid 5.2 H* Lactic Acid F/U @ 2Hr Calcium Phosphorus Magnesium Total Bilirubin Direct Bilirubin AST ALT Alkaline Phosphatase Total Creatine Kinase Troponin I High Sens 8.0 Total Protein Albumin Urine Color Urine Appearance Urine pH Ur Specific [place] Urine Protein Urine Glucose (UA) Urine Ketones Urine Blood Urine Nitrite Ur Leukocyte Esterase Urine RBC Urine WBC Ur Squamous Epith Cells Urine Bacteria Urine Yeast Stool Occult Blood COVID-19 (NEL) Negative COVID-19 [employer] Com See Note Blood Type Antibody Screen Crossmatch 08/04/21 08/04/21 08/04/21 14:55 14:55 14:56 WBC RBC Hgb Hct MCV MCH MCHC RDW Plt Count MPV Immature Gran % (Auto) Neut % (Auto) Lymph % (Auto) [place] % (Auto) Eos % (Auto) Baso % (Auto) Lymph # (Auto) [place] # (Auto) Eos # (Auto) Baso # (Auto) Abs Immat Gran (auto) Absolute Neuts (auto) Absolute Nucleated RBC Nucleated RBC % (auto) Smear Tech's Comments PT 13.0 INR 1.1 VBG pH VBG pCO2 VBG pO2 VBG HCO3 VBG O2 Saturation VBG Base Excess Sodium Potassium Chloride Carbon Dioxide Anion Gap BUN Creatinine Estim Creat Clear Calc Estimated GFR POC Glucose Random Glucose Lactic Acid Lactic Acid F/U @ 2Hr Calcium Phosphorus Magnesium Total Bilirubin Direct Bilirubin AST ALT Alkaline Phosphatase Total Creatine Kinase Troponin I High Sens Total Protein Albumin Urine Color Urine Appearance Urine pH Ur Specific [place] Urine Protein Urine Glucose (UA) Urine Ketones Urine Blood Urine Nitrite Ur Leukocyte Esterase Urine RBC Urine WBC Ur Squamous Epith Cells Urine Bacteria Urine Yeast Stool Occult Blood POSITIVE COVID-19 (NEL) COVID-19 [employer] Com Blood Type O Positive Antibody Screen NEGATIVE Crossmatch See Detail 08/04/21 08/04/21 08/04/21 14:56 16:29 16:29 WBC 16.7 H RBC 3.04 L D Hgb 8.7 L D Hct 28.1 L D MCV 92.4 MCH 28.6 MCHC 31.0 RDW 14.6 Plt Count 347 MPV 10.1 Immature Gran % (Auto) 1.9 H Neut % (Auto) 85.7 H Lymph % (Auto) 3.8 L [place] % (Auto) 8.2 Eos % (Auto) 0.1 Baso % (Auto) 0.3 Lymph # (Auto) 0.6 L [place] # (Auto) 1.4 H Eos # (Auto) 0.0 Baso # (Auto) 0.1 Abs Immat Gran (auto) 0.31 H Absolute Neuts (auto) 14.3 H Absolute Nucleated RBC 0.000 Nucleated RBC % (auto) 0.0 Smear Tech's Comments PT INR VBG pH VBG pCO2 VBG pO2 VBG HCO3 VBG O2 Saturation VBG Base Excess Sodium Potassium Chloride Carbon Dioxide Anion Gap BUN Creatinine Estim Creat Clear Calc Estimated GFR POC Glucose Random Glucose Lactic Acid Lactic Acid F/U @ 2Hr 1.5 Calcium Phosphorus Magnesium Total Bilirubin Direct Bilirubin AST ALT Alkaline Phosphatase Total Creatine Kinase Troponin I High Sens Total Protein Albumin Urine Color YELLOW Urine Appearance TURBID Urine pH 5.5 Ur Specific [place] 1.015 Urine Protein NEG Urine Glucose (UA) NEG Urine Ketones NEG Urine Blood 1+ H Urine Nitrite NEG Ur Leukocyte Esterase 1+ H Urine RBC 5-9 H Urine WBC 1-4 Ur Squamous Epith Cells NONE Urine Bacteria 1+ Urine Yeast 1+ Stool Occult Blood COVID-19 (NEL) COVID-19 Clin Com Blood Type Antibody Screen Crossmatch 08/04/21 08/04/21 08/04/21 20:10 20:11 20:11 WBC 16.2 H RBC 2.80 L Hgb 8.2 L Hct 25.2 L MCV 90.0 MCH 29.3 MCHC 32.5 RDW 14.6 Plt Count 305 MPV 9.6 Immature Gran % (Auto) 0.8 H Neut % (Auto) 88.0 H Lymph % (Auto) 3.0 L [place] % (Auto) 8.0 Eos % (Auto) 0.0 Baso % (Auto) 0.2 Lymph # (Auto) 0.5 L [place] # (Auto) 1.3 H Eos # (Auto) 0.0 Baso # (Auto) 0.0 Abs Immat Gran (auto) 0.13 H Absolute Neuts (auto) 14.3 H Absolute Nucleated RBC 0.000 Nucleated RBC % (auto) 0.0 Smear Tech's Comments PT INR VBG pH 7.39 VBG pCO2 22 VBG pO2 83 VBG HCO3 13 L VBG O2 Saturation 96.0 VBG Base Excess -9.5 Sodium 138 Potassium 4.4 Chloride 111 H Carbon Dioxide 18 L Anion Gap 13 BUN 54 H Creatinine 1.50 H Estim Creat Clear Calc 50.6 Estimated GFR 46 POC Glucose Random Glucose 178 H Lactic Acid Lactic Acid F/U @ 2Hr Calcium 8.5 D Phosphorus Magnesium Total Bilirubin Direct Bilirubin AST ALT Alkaline Phosphatase Total Creatine Kinase Troponin I High Sens Total Protein Albumin Urine Color Urine Appearance Urine pH Ur Specific [place] Urine Protein Urine Glucose (UA) Urine Ketones Urine Blood Urine Nitrite Ur Leukocyte Esterase Urine RBC Urine WBC Ur Squamous Epith Cells Urine Bacteria Urine Yeast Stool Occult Blood COVID-19 (NEL) COVID-19 [employer] [facility] Blood Type Antibody Screen Crossmatch 08/04/21 08/05/21 08/05/21 21:05 05:25 05:28 WBC RBC Hgb Hct MCV MCH MCHC RDW Plt Count MPV Immature Gran % (Auto) Neut % (Auto) Lymph % (Auto) [place] % (Auto) Eos % (Auto) Baso % (Auto) Lymph # (Auto) [place] # (Auto) Eos # (Auto) Baso # (Auto) Abs Immat Gran (auto) Absolute Neuts (auto) Absolute Nucleated RBC Nucleated RBC % (auto) Smear Tech's Comments PT INR VBG pH 7.38 VBG pCO2 26 VBG pO2 47 VBG HCO3 16 L VBG O2 Saturation 74.0 VBG Base Excess -7.7 Sodium 142 Potassium 4.2 Chloride 114 H Carbon Dioxide 20 L Anion Gap 12 BUN 52 H Creatinine 1.63 H Estim Creat Clear Calc 46.8 Estimated GFR 41 POC Glucose 161 H Random Glucose 136 H Lactic Acid Lactic Acid F/U @ 2Hr Calcium 8.6 Phosphorus 3.8 Magnesium 2.1 Total Bilirubin 0.4 Direct Bilirubin AST 11 ALT 7 Alkaline Phosphatase 98 D Total Creatine Kinase Troponin I High Sens Total Protein 5.2 L Albumin 3.2 L Urine Color Urine Appearance Urine pH Ur Specific [place] Urine Protein Urine Glucose (UA) Urine Ketones Urine Blood Urine Nitrite Ur Leukocyte Esterase Urine RBC Urine WBC Ur Squamous Epith Cells Urine Bacteria Urine Yeast Stool Occult Blood COVID-19 (NEL) COVID-19 [employer] [facility] Blood Type Antibody Screen Crossmatch 08/05/21 08/05/21 05:29 07:06 WBC 16.2 H RBC 2.53 L Hgb 7.3 L Hct 23.3 L MCV 92.1 MCH 28.9 MCHC 31.3 RDW 14.8 Plt Count 311 MPV 10.0 Immature Gran % (Auto) 0.6 H Neut % (Auto) 82.6 H Lymph % (Auto) 7.6 L [place] % (Auto) 8.9 Eos % (Auto) 0.1 Baso % (Auto) 0.2 Lymph # (Auto) 1.2 [place] # (Auto) 1.5 H Eos # (Auto) 0.0 Baso # (Auto) 0.0 Abs Immat Gran (auto) 0.09 H Absolute Neuts (auto) 13.4 H Absolute Nucleated RBC 0.000 Nucleated RBC % (auto) 0.0 Smear Tech's Comments PT INR VBG pH VBG pCO2 VBG pO2 VBG HCO3 VBG O2 Saturation VBG Base Excess Sodium Potassium Chloride Carbon Dioxide Anion Gap BUN Creatinine Estim Creat Clear Calc Estimated GFR POC Glucose 135 H Random Glucose Lactic Acid Lactic Acid F/U @ 2Hr Calcium Phosphorus Magnesium Total Bilirubin Direct Bilirubin AST ALT Alkaline Phosphatase Total Creatine Kinase Troponin I High Sens Total Protein Albumin Urine Color Urine Appearance Urine pH Ur Specific [place] Urine Protein Urine Glucose (UA) Urine Ketones Urine Blood Urine Nitrite Ur Leukocyte Esterase Urine RBC Urine WBC Ur Squamous Epith Cells Urine Bacteria Urine Yeast Stool Occult Blood COVID-19 (NEL) COVID-19 Clin Com Blood Type Antibody Screen Crossmatch Airway Mallampati Class: III TM Dist: >3cm Neck ROM: Limited Loose/Missing/Broken Teeth: Yes, Upper and Lower Heart: RRR Lungs: CTA Assessment and Plan Assessment Anesthesia Assessment: Anesthesia Plan Discussed Final Anesthetic Review History of Problems with Anesthesia: No NPO: Yes ASA Class: III Final Preanesthetic Review: Meds/Allgs Chart Reviewed, Consent Obtained/Reviewed and Anes Risks/Benef Reviewed Patient Risk: Intermediate Procedure Risk: Intermediate Anesthetic Plan Anesthetic Plan: MAC: Disposition: Standard PACU
--- NOTE | 2021-08-05 09:47 | MHC.CM.PN ---
IMM 08/05/21 Male 76 DX Syncope SZ Hypotension blood loss anemia S/P Parodid resection r/t CA last week. He lives with his . He is independent ADL's. He uses a cane for unsteady gait. Pts reports an appointment 08/08/21 @ [facility] for staple removal. She is HCP; which is on file. DP home with or without services. A PT eval may be ordered to assist with final dispo determination. Patient may need assist with transportation home.
--- NOTE | 2021-08-05 10:15 | P.OP_ITS ---
Operative Note Operative Note Date of Service: 08/05/21 Narrative: Pre-op diagnosis: anemia, heme positive stools, ? UGI bleed Post-op diagnosis:?other (hiatal hernia, Johnson's, nodular gastritis, no bleeding source in UGI) Procedure: FLEXIBLE TRANSORAL UPPER GASTROINTESTINAL ENDOSCOPY Consent:?Indications for the procedure and potential complications of bleeding, perforation, reaction to medications and missed diagnosis were discussed with the patient and informed consent was obtained. Instrument:?Olympus GIF H 190 mid size upper endoscope Monitoring: Vital signs and clinical assessment, continuous EKG monitoring, Pulse oximetry, Carbon Dioxide monitoring and blood pressure monitoring were done throughout the procedure. Procedure:?The patient was placed in the left lateral decubitis position and pre-procedure medications were administered and a bite block was placed. The endoscope was inserted into the mouth and advanced under direct vision to the third part of duodenum. A careful inspection was made as the upper endoscope was withdrawn including a retroflexed examination of the proximal stomach; Findings and interventions are described below. Findings: Larynx:? Normal Esophagus: GE junction at 40 cms, small hiatal hernia 40 to 42 cms. Short segment of Johnson's as note don past EGD. Stomach: Nodular appearing gastric mucosa in the body of the stomach. No biopsies were obtained since patient is on Plavix. Grade 2 flap valve on retroflexed examination of the cardia. Duodenum: Normal bulb and descending duodenum Intervention: Biopsies as noted above Impression and Post Procedure Diagnosis: Endoscopy Findings: ESOPHAGUS: GE junction at 40 cms, small hiatal hernia 40 to 42 cms. Short segment of Johnson's as note don past EGD. STOMACH: Nodular appearing gastric mucosa in the body of the stomach. No biopsies were obtained since patient is on Plavix. DUODENUM: Normal No blood or potential source of bleeding noted in the UGI tract during EGD Plan: Monitor H & H post blood transfusion. If he has melena/hematochezia I will schedule him for a colonoscopy. ADDENDUM: Pt had some decrease in H&H and was transfused an additional unitof PRBC. His CBC remained stable during the rest of his hospital stay without overt he matochezia or melena. Surgeon: Danyell Kay MD Anesthesia:?MAC Was an Lawn Care Specialist used for this Procedure?:?Yes Lawn Care Specialist:?Florinda Salmon Estimated blood loss (mL):?0 Pathology:?none sent Condition:?stable Disposition:?PACU
--- NOTE | 2021-08-05 10:32 | PM.CNGS ---
History of Present Illness Consult details Consult date: 08/05/21 Reason for consult: other (anemia) Narrative: Very pleasant 76-year-old gentleman well known to me for prior carotid history. I had originally perform his left carotid endarterectomy on 09/16/2018. He had been following up for routine surveillance. 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 He has undergone removal of that malignancy along with radical neck dissection and subsequent flap at [facility] in [place]. He reports that he had been doing fairly well. He had a syncopal episode. He was subsequently brought in and found to be anemic. Has been transfused blood in actually this morning he has undergone EGD as well. He now presents to us for vascular evaluation. Review of Systems Review of Systems: Yes all other systems are reviewed and are negative Constitutional: Constitutional: Reports no additional constitutional complaints ENT: Reports Normal hearing present Cardiovascular: Cardiovascular: Denies chest pain, Denies chest pain at rest, Denies chest pain with activity and Denies pedal edema Respiratory: Respiratory: Denies cough Gastrointestinal: Gastrointestinal: Denies abdominal pain Musculoskeletal: Musculoskeletal: Denies abnormal gait, Denies muscle cramps and Denies radiating pain into limb Integumentary/Breasts: Skin/Breast: Denies skin ulcer and Denies wounds Neurologic: Reports Normal hearing present and Denies abnormal gait Psychiatric: Psychiatric: Reports no additional psychiatric complaints PMFSH Past Medical History 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 CAD (coronary artery disease) Chronic kidney disease, stage 3 CVA (cerebral vascular accident) Diabetes Difficult Marques catheter placement H/O cataract Hepatitis C High cholesterol HTN (hypertension) Hyperlipidemia Iron deficiency anemia due to chronic blood loss Metabolic acidosis with increased anion gap and accumulation of organic acids Metabolic acidosis with normal anion gap and bicarbonate losses Peripheral vascular disease Family History Family History Other CAD (coronary artery disease) Surgical History Surgical History History of ankle surgery History of esophagogastroduodenoscopy (EGD) Hx of colonoscopy S/P CABG (coronary artery bypass graft) (~2006) S/P carotid endarterectomy (~08/2018) Social History Social History Household Members: Spouse Housing: House Do you presently have visiting nurse or other home services: No Alcohol intake: never Patient Tobacco Use Status: Never used Tobacco e-Cigarette/Vaping Use: Never Used Use of substances other than those prescribed or required for medical reasons: Yes 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 Currently Displaying Signs/Symptoms of Drug Intoxication Withdrawal: No Have you been hit, kicked, punched, or otherwise hurt by someone within the past year? If so, by whom?: No Do you feel safe in your current relationship?: Yes Is there a partner from a previous relationship who is making you feel unsafe now?: No Are you made to feel afraid or neglected: No Advance Directives: Yes Advance Directives on File: Yes Advance Directives Date on File: 04/15/21 Do you have thoughts of harming others: None Do you have a plan to hurt others: No Plan Recently lost weight without trying: No Poor oral hygiene: No service: No Current occupational status: [employer] Allergies Allergy/AdvReac Type Severity Reaction Status Date / Time No Known Allergies Allergy Verified 01/07/21 09:26 [No Known Allergies*] Active Medications: Current Medications Bacitracin (Bacitracin Oint 14 Gm Tube) 1 appl TOPICAL BID [facility]; Protocol Last Admin: 08/05/21 09:06 Dose: 1 appl Documented by: Dextrose (Dextrose 50 % 25 Gm/50 Ml Syringe) 25 gm IVPUSH Q15M PRN; Protocol PRN Reason: per Hypoglycemia Standing Ord. Glucose (Glucose Gel 15 Gm Gel..Gram.) 15 gm PO Q15M PRN; Protocol PRN Reason: per Hypoglycemia Standing Ord. Lactated Ringer's (Lr) 1,000 mls @ 100 mls/hr IVCONT .Q10H [facility] Last Admin: 08/05/21 05:11 Dose: 100 mls/hr Documented by: Insulin Human Lispro (Insulin Lispro 100 Unit/Ml 3 Ml Vial) 0 unit SUBCUT QIDACHS [facility]; Protocol Stop: 08/05/21 17:26 Last Admin: 08/05/21 07:15 Dose: Not Given Documented by: Pharmacy Consult (Consult Rx Perform Med Rec) 1 each MISCELLANE ONCE PRN PRN Reason: Consult order Home Medications Medication Instructions Recorded Confirmed Last Taken Type amlodipine 10 mg tablet 1 tab PO DAILY 04/22/20 08/04/21 08/04/21 History atorvastatin 40 mg tablet 1 tab PO BEDTIME 04/22/20 08/04/21 08/04/21 History clopidogrel 75 mg tablet 1 tab PO DAILY 04/22/20 08/04/21 08/04/21 History insulin glargine 100 unit/mL 80 unit SUBCUT BID 04/22/20 08/04/21 08/04/21 History subcutaneous solution (Lantus U-100 Insulin) insulin lispro 100 unit/mL 30 unit SUBCUT TID 04/22/20 08/04/21 08/04/21 History subcutaneous solution olmesartan 40 mg tablet 1 tab PO DAILY 04/22/20 08/04/21 08/04/21 History aspirin 81 mg tablet,delayed 81 mg PO DAILY 05/19/20 08/04/21 08/04/21 History release (Adult Low Dose Aspirin) gemfibrozil 600 mg tablet 600 mg PO BID 05/19/20 08/04/21 08/04/21 History hydralazine 100 mg tablet 100 mg PO BID tab 05/19/20 08/04/21 08/04/21 History omeprazole 20 mg capsule,delayed 1 cap PO DAILY 05/24/20 08/04/21 08/04/21 History release insulin syringe-needle U-100 1 mL #10 ea 09/21/20 08/04/21 08/04/21 History 28 gauge x 1/2 docosahexaenoic acid (dha)-epa 1 cap PO DAILY 04/14/21 08/04/21 08/04/21 History capsule furosemide 20 mg tablet 1 tab PO DAILY 08/04/21 08/04/21 08/04/21 History metoprolol succinate 200 mg 0.5 tab PO BID 08/04/21 08/04/21 08/04/21 History tablet,extended release 24 hr spironolactone 25 mg tablet 1 tab PO DAILY 08/04/21 08/04/21 08/04/21 History Physical Exam Vital Signs: Vital Signs: Last Vital Signs Temp 98.6 F 08/05/21 10:00 Pulse 66 08/05/21 10:00 Resp 12 08/05/21 10:00 BP 140/56 H 08/05/21 10:00 Pulse Ox 94 08/05/21 10:00 Oxygen Flow Rate 2 08/04/21 17:22 BMI result Body Mass Index 33.2 Const: General: cooperative, healthy appearing and comfortable Orientation/consciousness: oriented to person, oriented to place and oriented to time HEENT: Head: Yes normal to inspection Neck: Neck: Yes normal visual inspection Carotids: no bruits Chest: Chest palpation & inspection: normal inspection of the chest Resp: Effort & Inspection: normal respiratory effort and able to speak in complete sentences Auscultation: clear to auscultation bilaterally, no crackles, no rales, no rhonchi and no wheezes Cardio: Rate: regular rate Rhythm: regular rhythm Heart sounds: S1 normal heart sound present and S2 normal heart sound present Bruits: no carotid bruits Peripheral pulses: Peripheral pulses 2+ throughout GI: Inspection: Yes normal to inspection Skin: Other: Left neck incision appears to be well healing. No significant hematoma noted Hair: normal Neuro: General: oriented to person, oriented to place and oriented to time Cranial nerves: Yes CN's II-XII intact bilaterally and Yes Normal hearing present Cognition (Neuro): normal cognition Motor exam (neuro): 5/5 motor strength present throughout Extrem: Other: venous exam: No significant superficial varicosities or spider telangiectasias, minimal edema General: No clubbing, No cyanosis and No edema Psych: Appearance: grossly normal Mental Status: mental status grossly normal Speech and movement: Normal speech and movement present Results Labs Result diagrams: 08/05/21 05:29 08/05/21 05:28 Labs: Abnormal lab results 08/04/21 08/04/21 08/04/21 Range/Units 13:20 13:23 13:23 WBC 20.6 H (4.8-10.8) X10*3/uL RBC 2.25 L D (4.60-5.80) X10*6/uL Hgb 6.3 L* D (14.0-18.0) g/dl Hct 20.9 L* D (42.0-52.0) % MCHC 30.1 L (31.0-36.0) g/dl Plt Count 450 H (160-400) X10*3/uL Immature Gran % (Auto) 2.5 H (0.0-0.4) % Neut % (Auto) 73.1 H (45-73) % Lymph % (Auto) 13.8 L (20-40) % Lymph # (Auto) (1.2-4.9) X10*3/uL Bonner # (Auto) 2.0 H (0.1-1.2) X10*3/uL Abs Immat Gran (auto) 0.51 H (0.00-0.03) X10*3/uL Absolute Neuts (auto) 15.0 H (2.0-8.3) x10*3/uL VBG HCO3 (22-26) mmol/L Chloride (96-108) mmol/L Carbon Dioxide 15 L (22-29) mmol/L BUN 64 H D (9-16) mg/dL Creatinine 2.08 H (0.5-1.4) mg/dL POC Glucose 221 H (60-115) mg/dL Random Glucose 258 H D (60-115) mg/dL Lactic Acid (0.5-2.0) mmol/L Alkaline Phosphatase 123 H (39-117) U/L Total Creatine Kinase 34 L (38-174) U/L Total Protein 6.0 L (6.5-8.0) g/dL Albumin (3.5-5.0) g/dL Urine Blood (NEG) Ur Leukocyte Esterase (NEG) Urine RBC (0) /HPF Crossmatch 08/04/21 08/04/21 08/04/21 Range/Units 13:23 14:55 14:56 WBC (4.8-10.8) X10*3/uL RBC (4.60-5.80) X10*6/uL Hgb (14.0-18.0) g/dl Hct (42.0-52.0) % MCHC (31.0-36.0) g/dl Plt Count (160-400) X10*3/uL Immature Gran % (Auto) (0.0-0.4) % Neut % (Auto) (45-73) % Lymph % (Auto) (20-40) % Lymph # (Auto) (1.2-4.9) X10*3/uL Bonner # (Auto) (0.1-1.2) X10*3/uL Abs Immat Gran (auto) (0.00-0.03) X10*3/uL Absolute Neuts (auto) (2.0-8.3) x10*3/uL VBG HCO3 (22-26) mmol/L Chloride (96-108) mmol/L Carbon Dioxide (22-29) mmol/L BUN (9-16) mg/dL Creatinine (0.5-1.4) mg/dL POC Glucose (60-115) mg/dL Random Glucose (60-115) mg/dL Lactic Acid 5.2 H* (0.5-2.0) mmol/L Alkaline Phosphatase (39-117) U/L Total Creatine Kinase (38-174) U/L Total Protein (6.5-8.0) g/dL Albumin (3.5-5.0) g/dL Urine Blood 1+ H (NEG) Ur Leukocyte Esterase 1+ H (NEG) Urine RBC 5-9 H (0) /HPF Crossmatch See Detail 08/04/21 08/04/21 08/04/21 Range/Units 16:29 20:10 20:11 WBC 16.7 H 16.2 H (4.8-10.8) X10*3/uL RBC 3.04 L D 2.80 L (4.60-5.80) X10*6/uL Hgb 8.7 L D 8.2 L (14.0-18.0) g/dl Hct 28.1 L D 25.2 L (42.0-52.0) % MCHC (31.0-36.0) g/dl Plt Count (160-400) X10*3/uL Immature Gran % (Auto) 1.9 H 0.8 H (0.0-0.4) % Neut % (Auto) 85.7 H 88.0 H (45-73) % Lymph % (Auto) 3.8 L 3.0 L (20-40) % Lymph # (Auto) 0.6 L 0.5 L (1.2-4.9) X10*3/uL Bonner # (Auto) 1.4 H 1.3 H (0.1-1.2) X10*3/uL Abs Immat Gran (auto) 0.31 H 0.13 H (0.00-0.03) X10*3/uL Absolute Neuts (auto) 14.3 H 14.3 H (2.0-8.3) x10*3/uL VBG HCO3 13 L (22-26) mmol/L Chloride (96-108) mmol/L Carbon Dioxide (22-29) mmol/L BUN (9-16) mg/dL Creatinine (0.5-1.4) mg/dL POC Glucose (60-115) mg/dL Random Glucose (60-115) mg/dL Lactic Acid (0.5-2.0) mmol/L Alkaline Phosphatase (39-117) U/L Total Creatine Kinase (38-174) U/L Total Protein (6.5-8.0) g/dL Albumin (3.5-5.0) g/dL Urine Blood (NEG) Ur Leukocyte Esterase (NEG) Urine RBC (0) /HPF Crossmatch 08/04/21 08/04/21 08/05/21 Range/Units 20:11 21:05 05:25 WBC (4.8-10.8) X10*3/uL RBC (4.60-5.80) X10*6/uL Hgb (14.0-18.0) g/dl Hct (42.0-52.0) % MCHC (31.0-36.0) g/dl Plt Count (160-400) X10*3/uL Immature Gran % (Auto) (0.0-0.4) % Neut % (Auto) (45-73) % Lymph % (Auto) (20-40) % Lymph # (Auto) (1.2-4.9) X10*3/uL [place]ner # (Auto) (0.1-1.2) X10*3/uL Abs Immat Gran (auto) (0.00-0.03) X10*3/uL Absolute Neuts (auto) (2.0-8.3) x10*3/uL VBG HCO3 16 L (22-26) mmol/L Chloride 111 H (96-108) mmol/L Carbon Dioxide 18 L (22-29) mmol/L BUN 54 H (9-16) mg/dL Creatinine 1.50 H (0.5-1.4) mg/dL POC Glucose 161 H (60-115) mg/dL Random Glucose 178 H (60-115) mg/dL Lactic Acid (0.5-2.0) mmol/L Alkaline Phosphatase (39-117) U/L Total Creatine Kinase (38-174) U/L Total Protein (6.5-8.0) g/dL Albumin (3.5-5.0) g/dL Urine Blood (NEG) Ur Leukocyte Esterase (NEG) Urine RBC (0) /HPF Crossmatch 08/05/21 08/05/21 08/05/21 Range/Units 05:28 05:29 07:06 WBC 16.2 H (4.8-10.8) X10*3/uL RBC 2.53 L (4.60-5.80) X10*6/uL Hgb 7.3 L (14.0-18.0) g/dl Hct 23.3 L (42.0-52.0) % MCHC (31.0-36.0) g/dl Plt Count (160-400) X10*3/uL Immature Gran % (Auto) 0.6 H (0.0-0.4) % Neut % (Auto) 82.6 H (45-73) % Lymph % (Auto) 7.6 L (20-40) % Lymph # (Auto) (1.2-4.9) X10*3/uL Bonner # (Auto) 1.5 H (0.1-1.2) X10*3/uL Abs Immat Gran (auto) 0.09 H (0.00-0.03) X10*3/uL Absolute Neuts (auto) 13.4 H (2.0-8.3) x10*3/uL VBG HCO3 (22-26) mmol/L Chloride 114 H (96-108) mmol/L Carbon Dioxide 20 L (22-29) mmol/L BUN 52 H (9-16) mg/dL Creatinine 1.63 H (0.5-1.4) mg/dL POC Glucose 135 H (60-115) mg/dL Random Glucose 136 H (60-115) mg/dL Lactic Acid (0.5-2.0) mmol/L Alkaline Phosphatase (39-117) U/L Total Creatine Kinase (38-174) U/L Total Protein 5.2 L (6.5-8.0) g/dL Albumin 3.2 L (3.5-5.0) g/dL Urine Blood (NEG) Ur Leukocyte Esterase (NEG) Urine RBC (0) /HPF Crossmatch Short CBC 08/04/21 08/04/21 08/04/21 Range/Units 13:23 16:29 20:11 WBC 20.6 H 16.7 H 16.2 H (4.8-10.8) X10*3/uL Hgb 6.3 L* D 8.7 L D 8.2 L (14.0-18.0) g/dl Hct 20.9 L* D 28.1 L D 25.2 L (42.0-52.0) % Plt Count 450 H 347 305 (160-400) X10*3/uL 08/05/21 Range/Units 05:29 WBC 16.2 H (4.8-10.8) X10*3/uL Hgb 7.3 L (14.0-18.0) g/dl Hct 23.3 L (42.0-52.0) % Plt Count 311 (160-400) X10*3/uL BMP 08/04/21 08/04/21 08/05/21 13:23 20:11 05:28 Sodium 139 138 142 Potassium 4.1 4.4 4.2 Chloride 108 111 H 114 H Carbon Dioxide 15 L 18 L 20 L BUN 64 H D 54 H 52 H Creatinine 2.08 H 1.50 H 1.63 H Calcium 9.6 8.5 D 8.6 Cardiac Enzymes 08/04/21 Range/Units 13:23 Total Creatine Kinase 34 L (38-174) U/L Liver Function 08/04/21 08/05/21 Range/Units 13:23 05:28 Total Bilirubin 0.3 0.4 (0.0-1.0) mg/dL Direct Bilirubin 0.2 (0.0-0.5) mg/dL AST 9 D 11 (5-37) U/L ALT 8 7 (0-40) U/L Alkaline Phosphatase 123 H 98 D (39-117) U/L Albumin 3.9 3.2 L (3.5-5.0) g/dL Urine 08/04/21 Range/Units 14:56 Urine Color YELLOW Urine Appearance TURBID Urine pH 5.5 (5.0-8.0) Ur Specific [place] 1.015 (1.005-1.025) Urine Protein NEG (NEG-TRACE) MG/DL Urine Glucose (UA) NEG (NEG) MG/DL All other labs normal. Assessment and Plan (1) Bilateral carotid artery stenosis: Status: Acute Plan in short patient is stable from has carotid standpoint. The concern is his most recent surgery and anemia. He is stable from my perspective to be off of aspirin and Plavix as needed As long as it is not required from a cardiac standpoint. Once his anemia stabilizes he is stable from my perspective for discharge. He will follow up with us as an outpatient. Thank you for allowing us to assist in his care. If there are questions or concerns please do not hesitate to contact us. Procedures Date of Service Date of Service: 08/05/21
[2021-08-05 11:30] LABS: Glucose, Whole Blood 168 mg/dL (60-115)
[2021-08-05] MEDS: Insulin Lispro 100 UNIT/ML 3 ML VIAL SUBCUT ×2 (11:45→16:24)
--- NOTE | 2021-08-05 12:12 | P.PNCC_ITS ---
Subjective Subjective Date of Service: 08/05/21 Interval History: A 76-year-old male with known vasculopath status post coronary bypass grafting with bedside echo indicating 35-40% ejection fraction including paradoxical septal motion probably a hold over from his post pericardiotomy days and known peripheral vascular disease and totally occluded right internal carotid artery which is collateralized from an endarterectomized left internal carotid artery had a hemodynamics seizure due to blood/volume loss yesterday creating hypotension and probably hypoperfusion in today pure normal sinus rhythm with right bundle branch block no high-grade block He he was restarted on his aspirin and Plavix and developed melanotic stool which then led to a more profound GI bleed and upper GI endoscopy done today did not show and significant pathology despite 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 so no therapy was delivered ill remain on antacids and follow hemoglobin 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 No acute ST-T changes no complaints of chest discomfort of shortness of breath Critical Care Time (minutes): 45 Physical Exam Vital Signs: Vital Signs: Last Vital Signs Temp 98.8 F 08/05/21 12:00 Pulse 66 08/05/21 12:00 Resp 14 08/05/21 12:00 BP 145/52 H 08/05/21 12:00 Pulse Ox 94 08/05/21 12:00 Oxygen Flow Rate 2 08/04/21 17:22 BMI result Body Mass Index 33.2 Awake alert nonfocal Moderate reduction of systolic cardiac reserve Lungs are clear Abdomen benign with no organomegaly Skin intact with no acrocyanosis Objective Data Labs CBC & Chem 7: 08/05/21 05:29 08/05/21 05:28 Labs: Laboratory Results - last 24 hr 08/04/21 08/04/21 08/04/21 13:20 13:23 13:23 WBC 20.6 H RBC 2.25 L D Hgb 6.3 L* D Hct 20.9 L* D MCV 92.9 MCH 28.0 MCHC 30.1 L RDW 14.6 Plt Count 450 H MPV 10.3 Immature Gran % (Auto) 2.5 H Neut % (Auto) 73.1 H Lymph % (Auto) 13.8 L [place] % (Auto) 9.5 Eos % (Auto) 0.8 Baso % (Auto) 0.3 Lymph # (Auto) 2.8 [place] # (Auto) 2.0 H Eos # (Auto) 0.2 Baso # (Auto) 0.1 Abs Immat Gran (auto) 0.51 H Absolute Neuts (auto) 15.0 H Absolute Nucleated RBC 0.000 Nucleated RBC % (auto) 0.0 Smear Tech's Comments VERIFIED PT INR VBG pH VBG pCO2 VBG pO2 VBG HCO3 VBG O2 Saturation VBG Base Excess Sodium 139 Potassium 4.1 Chloride 108 Carbon Dioxide 15 L Anion Gap 20 BUN 64 H D Creatinine 2.08 H Estim Creat Clear Calc TNP Estimated GFR 31 POC Glucose 221 H Random Glucose 258 H D Lactic Acid Lactic Acid F/U @ 2Hr Calcium 9.6 Phosphorus Magnesium 2.2 Total Bilirubin 0.3 Direct Bilirubin 0.2 AST 9 D ALT 8 Alkaline Phosphatase 123 H Total Creatine Kinase 34 L Troponin I High Sens Total Protein 6.0 L Albumin 3.9 Urine Color Urine Appearance Urine pH Ur Specific [place] Urine Protein Urine Glucose (UA) Urine Ketones Urine Blood Urine Nitrite Ur Leukocyte Esterase Urine RBC Urine WBC Ur Squamous Epith Cells Urine Bacteria Urine Yeast Stool Occult Blood COVID-19 (NEL) COVID-19 Clin [facility] Blood Type Antibody Screen Crossmatch 08/04/21 08/04/21 08/04/21 13:23 13:23 13:34 WBC RBC Hgb Hct MCV MCH MCHC RDW Plt Count MPV Immature Gran % (Auto) Neut % (Auto) Lymph % (Auto) [place] % (Auto) Eos % (Auto) Baso % (Auto) Lymph # (Auto) [place] # (Auto) Eos # (Auto) Baso # (Auto) Abs Immat Gran (auto) Absolute Neuts (auto) Absolute Nucleated RBC Nucleated RBC % (auto) Smear Tech's Comments PT INR VBG pH VBG pCO2 VBG pO2 VBG HCO3 VBG O2 Saturation VBG Base Excess Sodium Potassium Chloride Carbon Dioxide Anion Gap BUN Creatinine Estim Creat Clear Calc Estimated GFR POC Glucose Random Glucose Lactic Acid 5.2 H* Lactic Acid F/U @ 2Hr Calcium Phosphorus Magnesium Total Bilirubin Direct Bilirubin AST ALT Alkaline Phosphatase Total Creatine Kinase Troponin I High Sens 8.0 Total Protein Albumin Urine Color Urine Appearance Urine pH Ur Specific [place] Urine Protein Urine Glucose (UA) Urine Ketones Urine Blood Urine Nitrite Ur Leukocyte Esterase Urine RBC Urine WBC Ur Squamous Epith Cells Urine Bacteria Urine Yeast Stool Occult Blood COVID-19 (NEL) Negative COVID-19 Clin Com See Note Blood Type Antibody Screen Crossmatch 08/04/21 08/04/21 08/04/21 14:55 14:55 14:56 WBC RBC Hgb Hct MCV MCH MCHC RDW Plt Count MPV Immature Gran % (Auto) Neut % (Auto) Lymph % (Auto) [place] % (Auto) Eos % (Auto) Baso % (Auto) Lymph # (Auto) [place] # (Auto) Eos # (Auto) Baso # (Auto) Abs Immat Gran (auto) Absolute Neuts (auto) Absolute Nucleated RBC Nucleated RBC % (auto) Smear Tech's Comments PT 13.0 INR 1.1 VBG pH VBG pCO2 VBG pO2 VBG HCO3 VBG O2 Saturation VBG Base Excess Sodium Potassium Chloride Carbon Dioxide Anion Gap BUN Creatinine Estim Creat Clear Calc Estimated GFR POC Glucose Random Glucose Lactic Acid Lactic Acid F/U @ 2Hr Calcium Phosphorus Magnesium Total Bilirubin Direct Bilirubin AST ALT Alkaline Phosphatase Total Creatine Kinase Troponin I High Sens Total Protein Albumin Urine Color Urine Appearance Urine pH Ur Specific [place] Urine Protein Urine Glucose (UA) Urine Ketones Urine Blood Urine Nitrite Ur Leukocyte Esterase Urine RBC Urine WBC Ur Squamous Epith Cells Urine Bacteria Urine Yeast Stool Occult Blood POSITIVE COVID-19 (NEL) COVID-19 Clin Com Blood Type O Positive Antibody Screen NEGATIVE Crossmatch See Detail 08/04/21 08/04/21 08/04/21 14:56 16:29 16:29 WBC 16.7 H RBC 3.04 L D Hgb 8.7 L D Hct 28.1 L D MCV 92.4 MCH 28.6 MCHC 31.0 RDW 14.6 Plt Count 347 MPV 10.1 Immature Gran % (Auto) 1.9 H Neut % (Auto) 85.7 H Lymph % (Auto) 3.8 L [place] % (Auto) 8.2 Eos % (Auto) 0.1 Baso % (Auto) 0.3 Lymph # (Auto) 0.6 L [place] # (Auto) 1.4 H Eos # (Auto) 0.0 Baso # (Auto) 0.1 Abs Immat Gran (auto) 0.31 H Absolute Neuts (auto) 14.3 H Absolute Nucleated RBC 0.000 Nucleated RBC % (auto) 0.0 Smear Tech's Comments PT INR VBG pH VBG pCO2 VBG pO2 VBG HCO3 VBG O2 Saturation VBG Base Excess Sodium Potassium Chloride Carbon Dioxide Anion Gap BUN Creatinine Estim Creat Clear Calc Estimated GFR POC Glucose Random Glucose Lactic Acid Lactic Acid F/U @ 2Hr 1.5 Calcium Phosphorus Magnesium Total Bilirubin Direct Bilirubin AST ALT Alkaline Phosphatase Total Creatine Kinase Troponin I High Sens Total Protein Albumin Urine Color YELLOW Urine Appearance TURBID Urine pH 5.5 Ur Specific [place] 1.015 Urine Protein NEG Urine Glucose (UA) NEG Urine Ketones NEG Urine Blood 1+ H Urine Nitrite NEG Ur Leukocyte Esterase 1+ H Urine RBC 5-9 H Urine WBC 1-4 Ur Squamous Epith Cells NONE Urine Bacteria 1+ Urine Yeast 1+ Stool Occult Blood COVID-19 (NEL) COVID-19 Clin Com Blood Type Antibody Screen Crossmatch 08/04/21 08/04/21 08/04/21 20:10 20:11 20:11 WBC 16.2 H RBC 2.80 L Hgb 8.2 L Hct 25.2 L MCV 90.0 MCH 29.3 MCHC 32.5 RDW 14.6 Plt Count 305 MPV 9.6 Immature Gran % (Auto) 0.8 H Neut % (Auto) 88.0 H Lymph % (Auto) 3.0 L [place] % (Auto) 8.0 Eos % (Auto) 0.0 Baso % (Auto) 0.2 Lymph # (Auto) 0.5 L [place] # (Auto) 1.3 H Eos # (Auto) 0.0 Baso # (Auto) 0.0 Abs Immat Gran (auto) 0.13 H Absolute Neuts (auto) 14.3 H Absolute Nucleated RBC 0.000 Nucleated RBC % (auto) 0.0 Smear Tech's Comments PT INR VBG pH 7.39 VBG pCO2 22 VBG pO2 83 VBG HCO3 13 L VBG O2 Saturation 96.0 VBG Base Excess -9.5 Sodium 138 Potassium 4.4 Chloride 111 H Carbon Dioxide 18 L Anion Gap 13 BUN 54 H Creatinine 1.50 H Estim Creat Clear Calc 50.6 Estimated GFR 46 POC Glucose Random Glucose 178 H Lactic Acid Lactic Acid F/U @ 2Hr Calcium 8.5 D Phosphorus Magnesium Total Bilirubin Direct Bilirubin AST ALT Alkaline Phosphatase Total Creatine Kinase Troponin I High Sens Total Protein Albumin Urine Color Urine Appearance Urine pH Ur Specific [place] Urine Protein Urine Glucose (UA) Urine Ketones Urine Blood Urine Nitrite Ur Leukocyte Esterase Urine RBC Urine WBC Ur Squamous Epith Cells Urine Bacteria Urine Yeast Stool Occult Blood COVID-19 (NEL) COVID-19 Clin Com Blood Type Antibody Screen Crossmatch 08/04/21 08/05/21 08/05/21 21:05 05:25 05:28 WBC RBC Hgb Hct MCV MCH MCHC RDW Plt Count MPV Immature Gran % (Auto) Neut % (Auto) Lymph % (Auto) [place] % (Auto) Eos % (Auto) Baso % (Auto) Lymph # (Auto) [place] # (Auto) Eos # (Auto) Baso # (Auto) Abs Immat Gran (auto) Absolute Neuts (auto) Absolute Nucleated RBC Nucleated RBC % (auto) Smear Tech's Comments PT INR VBG pH 7.38 VBG pCO2 26 VBG pO2 47 VBG HCO3 16 L VBG O2 Saturation 74.0 VBG Base Excess -7.7 Sodium 142 Potassium 4.2 Chloride 114 H Carbon Dioxide 20 L Anion Gap 12 BUN 52 H Creatinine 1.63 H Estim Creat Clear Calc 46.8 Estimated GFR 41 POC Glucose 161 H Random Glucose 136 H Lactic Acid Lactic Acid F/U @ 2Hr Calcium 8.6 Phosphorus 3.8 Magnesium 2.1 Total Bilirubin 0.4 Direct Bilirubin AST 11 ALT 7 Alkaline Phosphatase 98 D Total Creatine Kinase Troponin I High Sens Total Protein 5.2 L Albumin 3.2 L Urine Color Urine Appearance Urine pH Ur Specific [place] Urine Protein Urine Glucose (UA) Urine Ketones Urine Blood Urine Nitrite Ur Leukocyte Esterase Urine RBC Urine WBC Ur Squamous Epith Cells Urine Bacteria Urine Yeast Stool Occult Blood COVID-19 (NEL) COVID-19 Clin Com Blood Type Antibody Screen Crossmatch 08/05/21 08/05/21 08/05/21 05:29 07:06 11:26 WBC 16.2 H RBC 2.53 L Hgb 7.3 L Hct 23.3 L MCV 92.1 MCH 28.9 MCHC 31.3 RDW 14.8 Plt Count 311 MPV 10.0 Immature Gran % (Auto) 0.6 H Neut % (Auto) 82.6 H Lymph % (Auto) 7.6 L [place] % (Auto) 8.9 Eos % (Auto) 0.1 Baso % (Auto) 0.2 Lymph # (Auto) 1.2 [place] # (Auto) 1.5 H Eos # (Auto) 0.0 Baso # (Auto) 0.0 Abs Immat Gran (auto) 0.09 H Absolute Neuts (auto) 13.4 H Absolute Nucleated RBC 0.000 Nucleated RBC % (auto) 0.0 Smear Tech's Comments PT INR VBG pH VBG pCO2 VBG pO2 VBG HCO3 VBG O2 Saturation VBG Base Excess Sodium Potassium Chloride Carbon Dioxide Anion Gap BUN Creatinine Estim Creat Clear Calc Estimated GFR POC Glucose 135 H 168 H Random Glucose Lactic Acid Lactic Acid F/U @ 2Hr Calcium Phosphorus Magnesium Total Bilirubin Direct Bilirubin AST ALT Alkaline Phosphatase Total Creatine Kinase Troponin I High Sens Total Protein Albumin Urine Color Urine Appearance Urine pH Ur Specific [place] Urine Protein Urine Glucose (UA) Urine Ketones Urine Blood Urine Nitrite Ur Leukocyte Esterase Urine RBC Urine WBC Ur Squamous Epith Cells Urine Bacteria Urine Yeast Stool Occult Blood COVID-19 (NEL) COVID-19 Clin Com Blood Type Antibody Screen Crossmatch Progress Note: A&P Assessment and plan (1) Metabolic acidosis with normal anion gap and bicarbonate losses: Status: Acute (2) Metabolic acidosis with increased anion gap and accumulation of organic acids: Status: Acute (3) Syncope: Status: Acute (4) Anemia: Status: Acute (5) GIB (gastrointestinal bleeding): Status: Acute (6) DOMENICO (acute kidney injury): Status: Acute (7) Acute hypotension: Status: Acute (8) Acute GI bleeding: Status: Acute (9) Anemia: Status: Acute (10) Acute urinary retention: Status: Acute (11) Bilateral carotid artery stenosis: Status: Acute (12) Adenomatous colon polyp: Status: Acute (13) Johnson esophagus: Status: Acute (14) Diarrhea: Status: Acute (15) Peripheral vascular disease: Status: Acute Plan Follow hemoglobin transfuse as needed and that would give us a sense of direction as to the next step which might be colonoscopy but hopefully as the days pass min and the effective of aspirin and Plavix aware off things will stabilize Quality Stroke Does the patient have a stroke diagnosis?: No VTE Prior VTE?: No VTE Risk Level:: Medical - moderate - high VTE Device Contraindication: N/A - Device Ordered VTE Drug Contraindication: Treatment Not Tolerated
[2021-08-05 12:31] LABS: MANUAL DIFF FLAG NO
[2021-08-05 12:32] LABS: Basophils Absolute Auto 0.1 X10*3/uL (0.0-0.2); Basophils Percent Auto 0.3 % (0-2); Eosinophils Absolute Auto 0.1 X10*3/uL (0.0-0.4); Eosinophils Percent Auto 0.4 % (0-4); Hematocrit 25.6 % (42.0-52.0); Imm Gran Abs Auto 0.09 X10*3/uL (0.00-0.03); Imm Gran Pct Auto 0.6 % (0.0-0.4); Lymphocytes Absolute Auto 1.2 X10*3/uL (1.2-4.9); Lymphocytes Percent Auto 7.8 % (20-40); Mean Corpuscular HGB Conc 31.3 g/dl (31.0-36.0); Mean Corpuscular Hemoglobin 29.1 pg (27.0-33.0); Mean Corpuscular Volume 93.1 fL (80.0-98.0); Mean Platelet Volume 10.1 fL (9.4-12.4); Monocytes Absolute Auto 1.3 X10*3/uL (0.1-1.2); Monocytes Percent Auto 8.4 % (2-11); Neutrophils Percent Auto 82.5 % (45-73); Platelet Count 311 X10*3/uL (160-400); Red Blood Count 2.75 X10*6/uL (4.60-5.80); White Blood Count 15.7 X10*3/uL (4.8-10.8)
[2021-08-05 16:15] LABS: Glucose, Whole Blood 173 mg/dL (60-115)
[2021-08-05] MEDS: Ferrous Sulfate 324 MG TABLET.DR PO (16:24)
[2021-08-05] MEDS: vancomycin HCL 1,000 MG in 0.9 % Sodium Chloride 250 ML 270 MG IV (20:36)
[2021-08-05 21:10] LABS: Glucose, Whole Blood 200 mg/dL (60-115)
[2021-08-05] MEDS: Insulin Glargine,Hum.rec.anlog 100 UNIT/ML 10 ML VIAL 50 UNIT SUBCUT (22:01)
[2021-08-06] VITALS (18 sets, daily range): BP systolic 124–165; BP diastolic 51–68; PULSE 65–91; RESP 12–21; TEMP 36.9–37.5; O2SAT 94–100; BMI 33.2
[2021-08-06] MEDS: Lactated Ringers 1,000 ML 100 ML IVCONT (02:12)
[2021-08-06 05:30] LABS: VBG Base Excess -0.8 mmol/L; VBG HCO3 22 mmol/L (22-26); VBG pCO2 30 mmHg; VBG pH 7.47 (7.32-7.43); VBG pO2 52 mmHg
[2021-08-06 05:35] LABS: MANUAL DIFF FLAG NO
[2021-08-06 05:38] LABS: Basophils Percent Auto 0.3 % (0-2); Eosinophils Absolute Auto 0.2 X10*3/uL (0.0-0.4); Eosinophils Percent Auto 1.3 % (0-4); Hemoglobin 7.5 g/dl (14.0-18.0); Imm Gran Abs Auto 0.08 X10*3/uL (0.00-0.03); Imm Gran Pct Auto 0.7 % (0.0-0.4); Lymphocytes Absolute Auto 1.2 X10*3/uL (1.2-4.9); Lymphocytes Percent Auto 10.8 % (20-40); Mean Corpuscular HGB Conc 31.3 g/dl (31.0-36.0); Mean Corpuscular Hemoglobin 28.7 pg (27.0-33.0); Mean Platelet Volume 9.6 fL (9.4-12.4); Monocytes Absolute Auto 1.2 X10*3/uL (0.1-1.2); Monocytes Percent Auto 10.3 % (2-11); Neutrophils Absolute Auto 8.8 x10*3/uL (2.0-8.3); Neutrophils Percent Auto 76.6 % (45-73); Platelet Count 293 X10*3/uL (160-400); Red Blood Count 2.61 X10*6/uL (4.60-5.80); Red Cell Distribution Width 14.9 % (11.0-16.0); White Blood Count 11.5 X10*3/uL (4.8-10.8)
[2021-08-06 05:57] LABS: Alanine Aminotransferase 9 U/L (0-40); Albumin Level 3.3 g/dL (3.5-5.0); Alkaline Phosphatase 98 U/L (39-117); Anion Gap 11 (12-20); Aspartate Amino Transferase 14 U/L (5-37); Bilirubin Total 0.4 mg/dL (0.0-1.0); Blood Urea Nitrogen 26 mg/dL (9-16); Calcium 8.7 mg/dL (8.4-10.2); Carbon Dioxide 23 mmol/L (22-29); Chloride 111 mmol/L (96-108); Creatinine Clr Calc Pharmacy 69.9; Estimated Glomerular Filt Rate > 60; Glucose Random 164 mg/dL (60-115); Magnesium 1.9 mg/dL (1.6-2.6); Phosphorus 2.3 mg/dL (2.7-4.5); Sodium 141 mmol/L (135-145); Total Protein 5.3 g/dL (6.5-8.0)
[2021-08-06 06:50] LABS: Venous Blood Gas Refer to POC result
[2021-08-06 07:30] LABS: Glucose, Whole Blood 130 mg/dL (60-115)
[2021-08-06] MEDS: Ferrous Sulfate 324 MG TABLET.DR PO ×2 (08:16→17:00)
[2021-08-06] MEDS: Furosemide 20 MG/2 ML VIAL IVPUSH (08:16)
--- NOTE | 2021-08-06 08:49 | HE.PHANOTE ---
Based on todays Scr 1.09 dose increase to [id number]. Left trough for today to double check level.
[2021-08-06] MEDS: vancomycin HCL 750 MG in 0.9 % Sodium Chloride 250 ML 265 MG IV ×2 (09:52→21:35)
--- NOTE | 2021-08-06 10:29 | HO.POSTANES ---
Post Anesthesia Evaluation Post Anesthesia Evaluation Vital Signs: Vital Signs Temp Pulse Resp BP Pulse Ox 08/06/21 10:00 77 19 164/56 H 97 08/06/21 09:00 98.9 F 77 20 162/64 H 100 08/06/21 08:44 98.6 F 77 20 164/60 H 08/06/21 08:04 98.9 F 08/06/21 08:00 72 19 164/60 H 100 08/06/21 07:00 68 14 165/51 H 100 08/06/21 05:49 70 20 124/55 L 100 08/06/21 05:25 98.9 F 08/06/21 05:00 68 16 124/55 L 08/06/21 04:00 91 20 151/57 H 99 08/06/21 03:00 75 19 94 08/06/21 02:00 81 19 158/61 H 100 08/06/21 01:00 78 18 158/61 H 98 08/06/21 00:00 82 12 150/56 H 98 08/05/21 23:00 77 14 107/59 L 98 Anesthesia: Monitored Mental Status: Awake Pain Control: Satisfactory Nausea/Vomiting: None Hydration: Adequate Anesthesia-Related Issues: No Anes. Related Issues
--- NOTE | 2021-08-06 11:14 | PM.CCPN ---
Subjective Subjective Date of Service: 08/06/21 Interval History: 76-year-old male vasculopath with previous CABG surgery previous left carotid endarterectomy and a totally occluded right internal carotid artery so there are [id number] collaterals feeding the right hemisphere and he is 2 weeks status post a radical left face and neck dissection for a parotid malignancy and was restarted on dual antiplatelet therapy thereafter developed melena hemoglobin of 6 hypotensive he was dizzy fell to the floor hemodynamically induced seizure activity and presented with a blood pressure of 70 responding to fluid and red blood cell replacement and upper GI is negative for pathology and he has just very minimal gradual did down drift of his hemoglobin from 8.3-7.52 days running overnight so given 1 more unit of red blood cells today and he is due on Sunday the to go up in follow-up with his surgeon which I think is important because he had what looked like some mild cellulitic changes of the upper wound for which I have him on vancomycin and part of his presentation was low-grade fever and chills and I believe that was the source and thus far culture negative and he is responding clinically to the vanco but needs to wound looked at by his surgeon and today complained of some tightness and congestion and he is echo showed might say of 45-50% ejection fraction with no wall motion abnormality of left ventricle no primary valve or pericardial disease and normal on IVC diameter with normal intra vascular collapse with inspiration so you would think at at least intrathoracic volume was normal but we gave him 20 of Lasix because of positive intake and output ratio he had an 1100 cc diuresis and feels clinically much better so IV fluids are now stopped he is just on a diet he is perfectly stable and if hemoglobin tomorrow morning and afternoon are stable at least at 8 or greater he should be safe to discharge Sunday and has a pre arranged ride to pick him up here at the hospital with his and then take them up to [place] for follow-up Critical Care Time (minutes): 45 Physical Exam Vital Signs: Vital Signs: Last Vital Signs Temp 99.1 F 08/06/21 09:02 Pulse 77 08/06/21 10:00 Resp 19 08/06/21 10:00 BP 164/56 H 08/06/21 10:00 Pulse Ox 97 08/06/21 10:00 Oxygen Flow Rate 2 08/04/21 17:22 BMI result Body Mass Index 33.2 Normal cognitive function and nonfocal neurologically Bedside echo shows normal preserved LV systolic function along with presumed normal intrathoracic and intravascular volume Lungs clear Abdomen soft with no organomegaly No edema Objective Data Labs CBC & Chem 7: 08/06/21 05:19 08/06/21 05:19 Labs: Laboratory Results - last 24 hr 08/04/21 08/05/21 08/05/21 14:55 11:26 12:19 WBC 15.7 H RBC 2.75 L Hgb 8.0 L Hct 25.6 L MCV 93.1 MCH 29.1 MCHC 31.3 RDW 15.0 Plt Count 311 MPV 10.1 Immature Gran % (Auto) 0.6 H Neut % (Auto) 82.5 H Lymph % (Auto) 7.8 L [place] % (Auto) 8.4 Eos % (Auto) 0.4 Baso % (Auto) 0.3 Lymph # (Auto) 1.2 [place] # (Auto) 1.3 H Eos # (Auto) 0.1 Baso # (Auto) 0.1 Abs Immat Gran (auto) 0.09 H Absolute Neuts (auto) 13.0 H Absolute Nucleated RBC 0.000 Nucleated RBC % (auto) 0.0 VBG pH VBG pCO2 VBG pO2 VBG HCO3 VBG O2 Saturation VBG Base Excess Sodium Potassium Chloride Carbon Dioxide Anion Gap BUN Creatinine Estim Creat Clear Calc Estimated GFR POC Glucose 168 H Random Glucose Calcium Phosphorus Magnesium Total Bilirubin AST ALT Alkaline Phosphatase Total Protein Albumin Blood Type O Positive Antibody Screen NEGATIVE Crossmatch See Detail 08/05/21 08/05/21 08/06/21 16:11 21:06 05:19 WBC 11.5 H RBC 2.61 L Hgb 7.5 L Hct 24.0 L MCV 92.0 MCH 28.7 MCHC 31.3 RDW 14.9 Plt Count 293 MPV 9.6 Immature Gran % (Auto) 0.7 H Neut % (Auto) 76.6 H Lymph % (Auto) 10.8 L [place] % (Auto) 10.3 Eos % (Auto) 1.3 Baso % (Auto) 0.3 Lymph # (Auto) 1.2 [place] # (Auto) 1.2 Eos # (Auto) 0.2 Baso # (Auto) 0.0 Abs Immat Gran (auto) 0.08 H Absolute Neuts (auto) 8.8 H Absolute Nucleated RBC 0.000 Nucleated RBC % (auto) 0.0 VBG pH VBG pCO2 VBG pO2 VBG HCO3 VBG O2 Saturation VBG Base Excess Sodium Potassium Chloride Carbon Dioxide Anion Gap BUN Creatinine Estim Creat Clear Calc Estimated GFR POC Glucose 173 H 200 H Random Glucose Calcium Phosphorus Magnesium Total Bilirubin AST ALT Alkaline Phosphatase Total Protein Albumin Blood Type Antibody Screen Crossmatch 08/06/21 08/06/21 08/06/21 05:19 05:23 07:27 WBC RBC Hgb Hct MCV MCH MCHC RDW Plt Count MPV Immature Gran % (Auto) Neut % (Auto) Lymph % (Auto) [place] % (Auto) Eos % (Auto) Baso % (Auto) Lymph # (Auto) [place] # (Auto) Eos # (Auto) Baso # (Auto) Abs Immat Gran (auto) Absolute Neuts (auto) Absolute Nucleated RBC Nucleated RBC % (auto) VBG pH 7.47 H VBG pCO2 30 VBG pO2 52 VBG HCO3 22 VBG O2 Saturation 84.0 VBG Base Excess -0.8 Sodium 141 Potassium 4.0 Chloride 111 H Carbon Dioxide 23 Anion Gap 11 L BUN 26 H Creatinine 1.09 Estim Creat Clear Calc 69.9 Estimated GFR > 60 POC Glucose 130 H Random Glucose 164 H Calcium 8.7 Phosphorus 2.3 L Magnesium 1.9 Total Bilirubin 0.4 AST 14 ALT 9 Alkaline Phosphatase 98 Total Protein 5.3 L Albumin 3.3 L Blood Type Antibody Screen Crossmatch Microbiology Microbiology Results: Microbiology 08/04/21 13:29 Blood - Venous Blood Culture - Final Coag negative Staphylococcus 08/04/21 21:14 Blood - Venous Blood Culture - Preliminary No growth after 24 hours. 08/04/21 21:22 Blood - Venous Blood Culture - Preliminary No growth after 24 hours. 08/04/21 13:23 Blood - Venous Blood Culture - Preliminary No growth after 24 hours. 08/04/21 15:18 Urine Catheterized - Marques Catheter Urine Culture - Preliminary Yeast Progress Note: A&P Assessment and plan (1) Metabolic acidosis with normal anion gap and bicarbonate losses: Status: Acute (2) Metabolic acidosis with increased anion gap and accumulation of organic acids: Status: Acute (3) Syncope: Status: Acute (4) Anemia: Status: Acute (5) GIB (gastrointestinal bleeding): Status: Acute (6) DOMENICO (acute kidney injury): Status: Acute (7) Acute hypotension: Status: Acute (8) Acute GI bleeding: Status: Acute (9) Anemia: Status: Acute (10) Acute urinary retention: Status: Acute (11) Bilateral carotid artery stenosis: Status: Acute (12) Adenomatous colon polyp: Status: Acute (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
[2021-08-06 11:22] LABS: Glucose, Whole Blood 249 mg/dL (60-115)
[2021-08-06] MEDS: Insulin Lispro 100 UNIT/ML 3 ML VIAL SUBCUT ×3 (11:55→21:35)
[2021-08-06 16:25] LABS: Glucose, Whole Blood 221 mg/dL (60-115)
[2021-08-06 18:38] LABS: Vancomycin Trough 9.1 mcg/mL (10.0-20.0)
--- NOTE | 2021-08-06 18:51 | HE.PHANOTE ---
Vancomycin Dosing Addendum Dose changed this morning from 1000 q24h to 750 mg q12h. Trough 9.1 tonight. Continue with current regimen. Will get another trough tomorrow at 1800.
[2021-08-06 20:40] LABS: Glucose, Whole Blood 246 mg/dL (60-115)
[2021-08-06] MEDS: polyethylene glycoL 3350 17 GM POWD.PACK PO (21:35)
[2021-08-06] MEDS: Insulin Glargine,Hum.rec.anlog 100 UNIT/ML 10 ML VIAL 50 UNIT SUBCUT (21:35)
[2021-08-06] MEDS: Bacitracin Oint 14 GM TUBE 1 APPL TOPICAL (22:06)
[2021-08-07] VITALS (7 sets, daily range): BP systolic 157–178; BP diastolic 61–79; PULSE 64–76; RESP 16–20; TEMP 36.5–37.3; O2SAT 96–98; BMI 33.2
[2021-08-07] MEDS: Acetaminophen 325 MG TABLET 650 MG PO (02:29)
[2021-08-07] MEDS: hydrALAZINE HCl 20 MG/ML VIAL 5 MG IVPUSH (02:30)
[2021-08-07 05:17] LABS: MANUAL DIFF FLAG NO
[2021-08-07 05:46] LABS: Alanine Aminotransferase 12 U/L (0-40); Albumin Level 3.4 g/dL (3.5-5.0); Alkaline Phosphatase 96 U/L (39-117); Anion Gap 13 (12-20); Aspartate Amino Transferase 15 U/L (5-37); Bilirubin Total 0.4 mg/dL (0.0-1.0); Blood Urea Nitrogen 20 mg/dL (9-16); Calcium 8.9 mg/dL (8.4-10.2); Carbon Dioxide 24 mmol/L (22-29); Chloride 108 mmol/L (96-108); Estimated Glomerular Filt Rate > 60; Glucose Fasting 139 mg/dL (60-99); Potassium 3.9 mmol/L (3.3-5.1); Sodium 141 mmol/L (135-145); Total Protein 5.5 g/dL (6.5-8.0)
[2021-08-07 05:48] LABS: Basophils Percent Auto 0.3 % (0-2); Eosinophils Absolute Auto 0.2 X10*3/uL (0.0-0.4); Eosinophils Percent Auto 1.5 % (0-4); Hematocrit 26.6 % (42.0-52.0); Hemoglobin 8.4 g/dl (14.0-18.0); Imm Gran Pct Auto 0.8 % (0.0-0.4); Lymphocytes Absolute Auto 1.1 X10*3/uL (1.2-4.9); Lymphocytes Percent Auto 9.3 % (20-40); Mean Corpuscular HGB Conc 31.6 g/dl (31.0-36.0); Mean Corpuscular Hemoglobin 28.8 pg (27.0-33.0); Mean Corpuscular Volume 91.1 fL (80.0-98.0); Mean Platelet Volume 9.9 fL (9.4-12.4); Monocytes Absolute Auto 1.1 X10*3/uL (0.1-1.2); Neutrophils Absolute Auto 9.7 x10*3/uL (2.0-8.3); Neutrophils Percent Auto 79.1 % (45-73); Platelet Count 319 X10*3/uL (160-400); Red Blood Count 2.92 X10*6/uL (4.60-5.80); Red Cell Distribution Width 14.9 % (11.0-16.0); White Blood Count 12.3 X10*3/uL (4.8-10.8)
[2021-08-07 08:07] LABS: Glucose, Whole Blood 149 mg/dL (60-115)
[2021-08-07] MEDS: Ferrous Sulfate 324 MG TABLET.DR PO ×2 (09:21→16:30)
[2021-08-07] MEDS: vancomycin HCL 750 MG in 0.9 % Sodium Chloride 250 ML 265 MG IV ×2 (09:21→22:00)
[2021-08-07] MEDS: Bacitracin Oint 14 GM TUBE 1 APPL TOPICAL ×2 (09:26→21:51)
--- NOTE | 2021-08-07 10:50 | HO.PM.IMPN ---
Subjective Subjective Date of Service: 08/07/21 Interval History: Feels well overall. No active bleeding BP stable Review of Systems Denies chest pain Denies shortness of breath Denies nausea vomiting diarrhea Denies fever chills Physical Exam Vital Signs: Vital Signs: Last Vital Signs Temp 97.7 F 08/07/21 07:58 Pulse 74 08/07/21 07:58 Resp 20 08/07/21 07:58 BP 177/74 H 08/07/21 07:58 Pulse Ox 96 08/07/21 07:58 Oxygen Flow Rate 2 08/04/21 17:22 BMI result Body Mass Index 33.2 Const: Other: Awake alert oriented x3 no acute distress Resp: Other: Clear to auscultation bilaterally no rales rhonchi or wheezes Cardio: Other: No S4; positive S1-S2; no S3 murmurs of gallops GI: Other: Soft nontender nondistended normoactive bowel sounds Neuro: Other: Cranial nerves 2-12 grossly intact a. Motor is 5/5 all extremities ;sensation intact. Cognition appropriate Psych: Other: No edema bilateral Objective Data Active Medications Amlodipine Besylate (Amlodipine Besylate 10 Mg Tablet) 10 mg PO DAILY [facility]; Protocol Aspirin (Aspirin Enteric Coated 81 Mg Tablet.) 81 mg PO DAILY [facility] Atorvastatin Calcium (Atorvastatin Calcium 40 Mg Tablet) 40 mg PO BEDTIME [facility] Bacitracin (Bacitracin Oint 14 Gm Tube) 1 appl TOPICAL BID [facility]; Protocol Last Admin: 08/07/21 09:26 Dose: 1 appl Documented by: JOSÉ MANUEL Clopidogrel Bisulfate (Clopidogrel Bisulfate 75 Mg Tablet) 75 mg PO DAILY [facility] Dextrose (Dextrose 50 % 25 Gm/50 Ml Syringe) 25 gm IVPUSH Q15M PRN; Protocol PRN Reason: per Hypoglycemia Standing Ord. Ferrous Sulfate (Ferrous Sulfate 324 Mg Tablet.) 324 mg PO BIDWM [facility] Last Admin: 08/07/21 09:21 Dose: 324 mg Documented by: JOSÉ MANUEL Furosemide (Furosemide 20 Mg Tablet) 20 mg PO DAILY [facility]; Protocol Glucose (Glucose Gel 15 Gm Gel..Gram.) 15 gm PO Q15M PRN; Protocol PRN Reason: per Hypoglycemia Standing Ord. Vancomycin HCl 750 mg/ Sodium (Chloride) 265 mls @ 265 mls/hr IV Q12H [facility] Last Infusion: 08/07/21 10:48 Dose: 0 mls/hr Documented by: JOSÉ MANUEL Insulin Glargine (Insulin Glargine,Hum.Rec.Anlog 100 Unit/Ml 10 Ml Vial) 50 unit SUBCUT BEDTIME [facility] Last Admin: 08/06/21 21:35 Dose: 50 unit Documented by: DARCI Insulin Glargine (Insulin Glargine,Hum.Rec.Anlog 100 Unit/Ml 10 Ml Vial) 80 unit SUBCUT BID [facility] Insulin Human Lispro (Insulin Lispro 100 Unit/Ml 3 Ml Vial) 0 unit SUBCUT QIDACHS [facility]; Protocol Last Admin: 08/07/21 08:03 Dose: Not Given Documented by: JOSÉ MANUEL Non-Admin Reason: No Insulin Coverage Insulin Human Lispro (Insulin Lispro 100 Unit/Ml 3 Ml Vial) 30 unit SUBCUT TID [facility] Metoprolol Succinate (Metoprolol Succinate Er 100 Mg Tab.Er.24h) 100 mg PO BID [facility]; Protocol Non-Formulary Medication (Docosahexaenoic Acid-Epa) 1 cap PO DAILY [facility] Non-Formulary Medication (Olmesartan) 1 tab PO DAILY [facility] Omeprazole (Omeprazole 20 Mg Capsule.Dr) 20 mg PO DAILY [facility] Pharmacy Consult (Consult Rx Perform Med Rec) 1 each MISCELLANE ONCE PRN PRN Reason: Consult order Pharmacy Consult (Consult Rx Vancomycin Dosing) 1 each MISCELLANE DAILY PRN PRN Reason: Consult order Polyethylene Glycol (Polyethylene Glycol 3350 17 Gm Powd.Pack) 17 gm PO BID [facility] Last Admin: 08/07/21 09:23 Dose: Not Given Documented by: JOSÉ MANUEL Non-Admin Reason: Patient Refused Spironolactone (Spironolactone 25 Mg Tablet) 25 mg PO DAILY [facility]; Protocol Labs CBC & Chem 7: 08/07/21 04:32 08/07/21 04:32 Labs: Laboratory Results - last 24 hr 08/04/21 08/04/21 08/04/21 13:23 14:55 16:29 Hgb 6.3 L* D 8.7 L D MCV MCH MCHC RDW Plt Count MPV Immature Gran % (Auto) Neut % (Auto) Lymph % (Auto) [place] % (Auto) Eos % (Auto) Baso % (Auto) Lymph # (Auto) [place] # (Auto) Eos # (Auto) Baso # (Auto) Abs Immat Gran (auto) Absolute Neuts (auto) Absolute Nucleated RBC Nucleated RBC % (auto) Anion Gap Estim Creat Clear Calc Estimated GFR POC Glucose Fasting Glucose Calcium Total Bilirubin AST ALT Alkaline Phosphatase Total Protein Albumin Vancomycin Trough Crossmatch See Detail 08/04/21 08/05/21 08/05/21 20:11 05:29 12:19 Hgb 8.2 L 7.3 L 8.0 L MCV MCH MCHC RDW Plt Count MPV Immature Gran % (Auto) Neut % (Auto) Lymph % (Auto) [place] % (Auto) Eos % (Auto) Baso % (Auto) Lymph # (Auto) [place] # (Auto) Eos # (Auto) Baso # (Auto) Abs Immat Gran (auto) Absolute Neuts (auto) Absolute Nucleated RBC Nucleated RBC % (auto) Anion Gap Estim Creat Clear Calc Estimated GFR POC Glucose Fasting Glucose Calcium Total Bilirubin AST ALT Alkaline Phosphatase Total Protein Albumin Vancomycin Trough Crossmatch 08/06/21 08/06/21 08/06/21 05:19 11:18 16:22 Hgb 7.5 L MCV MCH MCHC RDW Plt Count MPV Immature Gran % (Auto) Neut % (Auto) Lymph % (Auto) [place] % (Auto) Eos % (Auto) Baso % (Auto) Lymph # (Auto) [place] # (Auto) Eos # (Auto) Baso # (Auto) Abs Immat Gran (auto) Absolute Neuts (auto) Absolute Nucleated RBC Nucleated RBC % (auto) Anion Gap Estim Creat Clear Calc Estimated GFR POC Glucose 249 H 221 H Fasting Glucose Calcium Total Bilirubin AST ALT Alkaline Phosphatase Total Protein Albumin Vancomycin Trough Crossmatch 08/06/21 08/06/21 08/07/21 17:25 20:36 04:32 Hgb 8.4 L MCV 91.1 MCH 28.8 MCHC 31.6 RDW 14.9 Plt Count 319 MPV 9.9 Immature Gran % (Auto) 0.8 H Neut % (Auto) 79.1 H Lymph % (Auto) 9.3 L [place] % (Auto) 9.0 Eos % (Auto) 1.5 Baso % (Auto) 0.3 Lymph # (Auto) 1.1 L [place] # (Auto) 1.1 Eos # (Auto) 0.2 Baso # (Auto) 0.0 Abs Immat Gran (auto) 0.10 H Absolute Neuts (auto) 9.7 H Absolute Nucleated RBC 0.000 Nucleated RBC % (auto) 0.0 Anion Gap Estim Creat Clear Calc Estimated GFR POC Glucose 246 H Fasting Glucose Calcium Total Bilirubin AST ALT Alkaline Phosphatase Total Protein Albumin Vancomycin Trough 9.1 L Crossmatch 08/07/21 08/07/21 04:32 07:56 Hgb MCV MCH MCHC RDW Plt Count MPV Immature Gran % (Auto) Neut % (Auto) Lymph % (Auto) [place] % (Auto) Eos % (Auto) Baso % (Auto) Lymph # (Auto) [place] # (Auto) Eos # (Auto) Baso # (Auto) Abs Immat Gran (auto) Absolute Neuts (auto) Absolute Nucleated RBC Nucleated RBC % (auto) Anion Gap 13 Estim Creat Clear Calc 77.0 Estimated GFR > 60 POC Glucose 149 H Fasting Glucose 139 H Calcium 8.9 Total Bilirubin 0.4 AST 15 ALT 12 Alkaline Phosphatase 96 Total Protein 5.5 L Albumin 3.4 L Vancomycin Trough Crossmatch Microbiology Microbiology Results: Microbiology 08/04/21 21:14 Blood Culture - Preliminary Blood - Venous No growth after 48 hours. 08/04/21 21:22 Blood Culture - Preliminary Blood - Venous No growth after 48 hours. 08/04/21 13:23 Blood Culture - Preliminary Blood - Venous No growth after 48 hours. 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 He was admitted to ICU given 2 L of blood medicines were held and he is given subsequent volume repletion. He continued to improve and was transferred to the floor. At this point in time he is hemodynamically stable; hemoglobin is stable as well 1.GIB -Hgb stable...follow in am -hold ASA/Plavix...restart as outpatient -hopeful DC in am to f/up in [place] 2.DOMENICO(resolving) -follow renals/divalents 3.DMII -Restart outpatient regimen -Lispro correcyional scale -adjusty as indicated Boots Full code Will require at least 1 additional midnight to document stability in hemoglobin prior to discharge Quality Stroke Does the patient have a stroke diagnosis?: No VTE Prior VTE?: No VTE Risk Level:: Medical - moderate - high VTE Device Contraindication: N/A - Device Ordered VTE Drug Contraindication: Treatment Not Tolerated
[2021-08-07 11:25] LABS: Glucose, Whole Blood 191 mg/dL (60-115)
[2021-08-07] MEDS: Furosemide 20 MG TABLET PO (11:34)
[2021-08-07] MEDS: Omeprazole 20 MG CAPSULE.DR PO (11:34)
[2021-08-07] MEDS: amLODIPine Besylate 10 MG TABLET PO (11:34)
[2021-08-07] MEDS: Insulin Lispro 100 UNIT/ML 3 ML VIAL SUBCUT ×3 (11:34→21:48)
[2021-08-07] MEDS: Metoprolol Succinate ER 100 MG TAB.ER.24H PO ×2 (11:34→21:48)
[2021-08-07] MEDS: Valsartan 160 MG TABLET PO (12:03)
[2021-08-07 15:37] LABS: Glucose, Whole Blood 207 mg/dL (60-115)
[2021-08-07 15:39] LABS: Glucose, Whole Blood 211 mg/dL (60-115)
[2021-08-07 18:48] LABS: Vancomycin Trough 9.9 mcg/mL (10.0-20.0)
[2021-08-07 20:06] LABS: Glucose, Whole Blood 290 mg/dL (60-115)
[2021-08-07] MEDS: polyethylene glycoL 3350 17 GM POWD.PACK PO (21:48)
[2021-08-07] MEDS: Insulin Glargine,Hum.rec.anlog 100 UNIT/ML 10 ML VIAL 50 UNIT SUBCUT (21:48)
[2021-08-07] MEDS: Atorvastatin Calcium 40 MG TABLET PO (21:48)
[2021-08-08 03:29] VITALS: BP 158/67; PULSE 60; RESP 15; TEMP 37.4; O2SAT 95
[2021-08-08 06:46] LABS: MANUAL DIFF FLAG NO
[2021-08-08 07:03] LABS: Basophils Absolute Auto 0.1 X10*3/uL (0.0-0.2); Basophils Percent Auto 0.4 % (0-2); Eosinophils Absolute Auto 0.2 X10*3/uL (0.0-0.4); Eosinophils Percent Auto 1.8 % (0-4); Hematocrit 27.4 % (42.0-52.0); Hemoglobin 8.7 g/dl (14.0-18.0); Imm Gran Abs Auto 0.13 X10*3/uL (0.00-0.03); Imm Gran Pct Auto 1.1 % (0.0-0.4); Lymphocytes Percent Auto 8.3 % (20-40); Mean Corpuscular HGB Conc 31.8 g/dl (31.0-36.0); Mean Corpuscular Volume 91.3 fL (80.0-98.0); Mean Platelet Volume 9.8 fL (9.4-12.4); Monocytes Absolute Auto 1.1 X10*3/uL (0.1-1.2); Neutrophils Absolute Auto 9.3 x10*3/uL (2.0-8.3); Neutrophils Percent Auto 79.4 % (45-73); Platelet Count 348 X10*3/uL (160-400); Red Cell Distribution Width 15.2 % (11.0-16.0); White Blood Count 11.7 X10*3/uL (4.8-10.8)
[2021-08-08 07:09] LABS: Alanine Aminotransferase 13 U/L (0-40); Albumin Level 3.4 g/dL (3.5-5.0); Alkaline Phosphatase 109 U/L (39-117); Anion Gap 11 (12-20); Aspartate Amino Transferase 15 U/L (5-37); Bilirubin Total 0.4 mg/dL (0.0-1.0); Blood Urea Nitrogen 21 mg/dL (9-16); Calcium 9.1 mg/dL (8.4-10.2); Carbon Dioxide 26 mmol/L (22-29); Chloride 106 mmol/L (96-108); Estimated Glomerular Filt Rate > 60; Glucose Fasting 203 mg/dL (60-99); Potassium 4.5 mmol/L (3.3-5.1); Sodium 138 mmol/L (135-145); Total Protein 5.6 g/dL (6.5-8.0)
[2021-08-08 07:30] VITALS: BP 179/77; PULSE 63; RESP 19; TEMP 36.8; O2SAT 97
[2021-08-08 07:37] LABS: Glucose, Whole Blood 194 mg/dL (60-115)
--- NOTE | 2021-08-08 07:42 | P.DS_ITS ---
DS: Providers Provider Date of Service: 08/08/21 Date of admission: 08/04/21 17:22 Date of discharge: 08/08/21 Primary care physician: Elías Arce III, MD DS: Diagnosis Discharge Diagnosis (1) Anemia: Status: Acute (2) GIB (gastrointestinal bleeding): Status: Acute (3) DOMENICO (acute kidney injury): Status: Acute DS: Summary Hospital Course Hospital Course: 76-year-old male moderately obese type 2 insulin-dependent diabetic hypertensive with diffuse vasculopathy status post coronary bypass grafting in the past status post left carotid endarterectomy with a known total occlusion of the right internal carotid artery who was 1 week ago in [facility] where he had a 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 Antih ypertensive/ Plavix/aspirin were held. Patient's hemoglobin responded appropriately to therapies and blood pressure stabilized. He was followed on the floor for 24 hours and his hemoglobin remains stable. At this point in time, IV antibiotics will be D/Cd and left to the discretion of his surgeon. He will follow-up today with his surgeon and in 1-2 weeks with his PCP. He is discharged in stable/improved condition Time Spent with Patient Time attestation: Total time spent providing and/or coordinating discharge services: Discharge coordination time: Greater than 30 minutes Quality: Safe Use of Opioids Does Pt have an Active Cancer Diagnosis on the Problem List?: No Quality: Stroke Does the patient have a stroke diagnosis?: No Physical Exam Vital Signs: Vital Signs: Last Vital Signs Temp 98.2 F 08/08/21 07:30 Pulse 63 08/08/21 07:30 Resp 19 08/08/21 07:30 BP 179/77 H 08/08/21 07:30 Pulse Ox 97 08/08/21 07:30 Oxygen Flow Rate 2 04/07/22 17:22 BMI result Body Mass Index 33.2 Const: Other: Awake alert oriented x3 no acute distress Neck: Other: Incision site left neck to left chest clean dry and intact minimal erythema. Wideman in place Resp: Other: Clear to auscultation bilaterally no rales rhonchi or wheezes Cardio: Other: No S4; positive S1-S2; no S3 murmurs of gallops GI: Other: Soft nontender nondistended normoactive bowel sounds Neuro: Other: Cranial nerves 2-12 grossly intact a. Motor is 5/5 all extremities ;sensation intact. Cognition appropriate. In mild left facial asymmetry stable/present since admitted Psych: Other: No edema bilateral DS: Data Data Completed and Pending Completed studies during hospitalization [Text1]: Procedures Drainage of Bladder with Drainage Device, Via Natural or Artificial Opening (04/14/21) Transfusion of Nonautologous Red Blood Cells into Peripheral Vein, Percutaneous Approach (04/22/20) Labs on day of discharge: Laboratory Results - last 24 hr 08/07/21 08/07/21 08/07/21 07:56 11:21 14:57 WBC RBC Hgb Hct MCV MCH MCHC RDW Plt Count MPV Immature Gran % (Auto) Neut % (Auto) Lymph % (Auto) [place] % (Auto) Eos % (Auto) Baso % (Auto) Lymph # (Auto) [place] # (Auto) Eos # (Auto) Baso # (Auto) Abs Immat Gran (auto) Absolute Neuts (auto) Absolute Nucleated RBC Nucleated RBC % (auto) Sodium Potassium Chloride Carbon Dioxide Anion Gap BUN Creatinine Estim Creat Clear Calc Estimated GFR POC Glucose 149 H 191 H 211 H Fasting Glucose Calcium Total Bilirubin AST ALT Alkaline Phosphatase Total Protein Albumin Vancomycin Trough 08/07/21 08/07/21 08/07/21 15:33 18:18 20:01 WBC RBC Hgb Hct MCV MCH MCHC RDW Plt Count MPV Immature Gran % (Auto) Neut % (Auto) Lymph % (Auto) [place] % (Auto) Eos % (Auto) Baso % (Auto) Lymph # (Auto) [place] # (Auto) Eos # (Auto) Baso # (Auto) Abs Immat Gran (auto) Absolute Neuts (auto) Absolute Nucleated RBC Nucleated RBC % (auto) Sodium Potassium Chloride Carbon Dioxide Anion Gap BUN Creatinine Estim Creat Clear Calc Estimated GFR POC Glucose 207 H 290 H Fasting Glucose Calcium Total Bilirubin AST ALT Alkaline Phosphatase Total Protein Albumin Vancomycin Trough 9.9 L 08/08/21 08/08/21 08/08/21 06:25 06:25 07:33 WBC 11.7 H RBC 3.00 L Hgb 8.7 L Hct 27.4 L MCV 91.3 MCH 29.0 MCHC 31.8 RDW 15.2 Plt Count 348 MPV 9.8 Immature Gran % (Auto) 1.1 H Neut % (Auto) 79.4 H Lymph % (Auto) 8.3 L [place] % (Auto) 9.0 Eos % (Auto) 1.8 Baso % (Auto) 0.4 Lymph # (Auto) 1.0 L [place] # (Auto) 1.1 Eos # (Auto) 0.2 Baso # (Auto) 0.1 Abs Immat Gran (auto) 0.13 H Absolute Neuts (auto) 9.3 H Absolute Nucleated RBC 0.000 Nucleated RBC % (auto) 0.0 Sodium 138 Potassium 4.5 Chloride 106 Carbon Dioxide 26 Anion Gap 11 L BUN 21 H Creatinine 1.03 Estim Creat Clear Calc 74.0 Estimated GFR > 60 POC Glucose 194 H Fasting Glucose 203 H D Calcium 9.1 Total Bilirubin 0.4 AST 15 ALT 13 Alkaline Phosphatase 109 Total Protein 5.6 L Albumin 3.4 L Vancomycin Trough Preliminary micro results at discharge 08/04/21 21:14 Blood Culture - Preliminary Blood - Venous No growth after 48 hours. 08/04/21 21:22 Blood Culture - Preliminary Blood - Venous No growth after 48 hours. 08/04/21 13:23 Blood Culture - Preliminary Blood - Venous No growth after 48 hours. Discharge Plan Discharge Patient Disposition: Home, Self-Care Discharge Diagnosis: GI Bleed Referrals: Elías Arce III, MD [Primary Care Provider] - 1 Week Discharge Medications: Continued atorvastatin 40 mg tablet 1 tab PO BEDTIME 0RF Lantus U-100 Insulin 100 unit/mL solution 80 unit subcut BID 0RF clopidogrel 75 mg tablet 1 tab PO DAILY 0RF Hold Instructions: Resume on 04/24/20. amlodipine 10 mg tablet 1 tab PO DAILY 0RF insulin lispro 100 unit/mL solution 30 unit subcut TID 0RF olmesartan 40 mg tablet 1 tab PO DAILY 0RF hydralazine 100 mg tablet 100 mg PO BID 0RF gemfibrozil 600 mg tablet 600 mg PO BID 0RF omeprazole 20 mg capsule,delayed release(DR/EC) 1 cap PO DAILY 0RF docosahexaenoic acid-epa Capsule 1 cap PO DAILY 0RF metoprolol succinate 200 mg tablet extended release 24 hr 0.5 tab PO BID 0RF spironolactone 25 mg tablet 1 tab PO DAILY 0RF furosemide 20 mg tablet 1 tab PO DAILY 0RF aspirin [Adult Low Dose Aspirin] 81 mg tablet,delayed release (DR/EC) 81 mg PO DAILY 0RF (DME) insulin syringe-needle U-100 1 mL 28 gauge x 1/2 syringe See Rx Instructions syringe .ROUTE .MEDSUPPLY Qty: 10 0RF Rx Instructions: As directed Discharge Orders: Discharge Order (Routine); Ordered 08/08/21 Ordered By: Rex Aguilar Diet: advance to usual diet Activity on Discharge: As tolerated Stand Alone Forms: Patient Portal Discharge page Care Plan Goals: Restart all outpatient therapies. Follow-up in [place] today as scheduled Health Concerns: No antibiotics at this time; surgeon can decide if you need further treatment after he sees you Plan of Treatment: Follow-up with your PCP in 2 weeks Assessment: See discharge summary
[2021-08-08] MEDS: Spironolactone 25 MG TABLET PO (07:52)
[2021-08-08] MEDS: amLODIPine Besylate 10 MG TABLET PO (07:52)
[2021-08-08] MEDS: Insulin Lispro 100 UNIT/ML 3 ML VIAL SUBCUT (07:52)
[2021-08-08] MEDS: Metoprolol Succinate ER 100 MG TAB.ER.24H PO (07:52)
[2021-08-08] MEDS: Insulin Glargine,Hum.rec.anlog 100 UNIT/ML 10 ML VIAL 80 UNIT SUBCUT (07:53)
[2021-08-08] MEDS: Furosemide 20 MG TABLET PO (07:53)
[2021-08-08] MEDS: Ferrous Sulfate 324 MG TABLET.DR PO (07:53)
[2021-08-08] MEDS: Omeprazole 20 MG CAPSULE.DR PO (07:53)
[2021-08-08] MEDS: Valsartan 160 MG TABLET PO (07:53)
--- NOTE | 2021-08-08 08:44 | MHC.CM.PN ---
pt dcd home no skilled servceis ordered by
== END 2021-08-08 09:06 | disposition home or self-care (01) | DRG 378 ==
LOC: HO.ED 13:50 → HO.EDOVER 17:29 → HO.ICU 18:03 → HO.IMC 08-06 11:17
PROVIDERS: Hospitalist; Internal Medicine Gastroenterology; Nurse Practitioner Family; Physician Assistant; Admitting Provider Internal Medicine Cardiovascular Disease; Emergency Provider Emergency Medicine Emergency Medical Services; PCP Internal Medicine; Visit Provider Internal Medicine Cardiovascular Disease
PROC: 0DJ08ZZ Inspection of Upper Intestinal Tract, Via Natural or Artificial Opening Endoscopic (ICD-10-PCS; CPT 43235; principal; 2021-08-05 10:10)
DX: K29.71 Gastritis, unspecified, with bleeding (principal); N17.9 Acute kidney failure, unspecified; D62 Acute posthemorrhagic anemia; E11.51 Type 2 diabetes mellitus with diabetic peripheral angiopathy without gangrene; I25.10 Atherosclerotic heart disease of native coronary artery without angina pectoris; I95.9 Hypotension, unspecified; N18.30 Chronic kidney disease, stage 3 unspecified; E66.9 Obesity, unspecified; Z68.33 Body mass index [BMI] 33.0-33.9, adult; K22.70 Barrett's esophagus without dysplasia; K44.9 Diaphragmatic hernia without obstruction or gangrene; C07 Malignant neoplasm of parotid gland; E11.22 Type 2 diabetes mellitus with diabetic chronic kidney disease; D63.1 Anemia in chronic kidney disease; Z20.822 Contact with and (suspected) exposure to COVID-19; Z86.73 Personal history of transient ischemic attack (TIA), and cerebral infarction without residual deficits; Z95.1 Presence of aortocoronary bypass graft; Z79.4 Long term (current) use of insulin; Z79.899 Other long term (current) drug therapy
CPT/HCPCS: 36415; 36430; 70496; 70498; 71250; 74176; 80048; 80053; 80076; 80202; 81001; 82272; 82550; 82803; 82947; 83605; 83735; 84100; 84484; 85025; 85610; 86850; 86900; 86901; 86920; 86923; 87040; 87086; 87088; 87147; 87205; 87635; 93005; 96361; 96374; 96375; 99285; 99291; 99292; C1758; J0131; J0696; J1940; J2405; J3370; P9016; Q9967

== ENCOUNTER 2021-08-14 12:15 | Emergency (ER) | payer MEDICARE, SELFPAY ==
--- NOTE | ~2021-08-14 | CT_ITS ---
EXAMINATION: CT ABDOMEN AND PELVIS WITHOUT CONTRAST CLINICAL INFORMATION: Abdominal pain, distention COMPARISON: 08/04/2021 TECHNIQUE: Multidetector volumetric imaging was performed from the superior aspect of the liver through the pubic symphysis. Sagittal and coronal reformatted images were obtained on the technologist's workstation. This CT examination was performed using dose optimization techniques as appropriate, variously including the following: *Automated exposure control *Adjustment of mA and/or kV according to patient size (this includes techniques or standardized protocols for targeted exams where dose is matched to indication/reason for exam; i.e. extremities or head) *Use of iterative reconstruction technique DLP: 712 mGy-cm FINDINGS: LUNG BASES: The visualized lung bases are unremarkable. LIVER, GALLBLADDER, AND BILIARY TREE: The liver is normal in size, shape, and attenuation. No focal hepatic lesion or biliary ductal dilatation is present. Multiple gallstones. PANCREAS: Unremarkable. SPLEEN: Unremarkable. ADRENAL GLANDS: Unremarkable. KIDNEYS AND URETERS: Mild bilateral hydroureteronephrosis. No renal calculi. Bilateral renal perinephric stranding. BLADDER: The urinary bladder is markedly distended. Marques catheter is positioned within the prostatic urethra. GASTROINTESTINAL TRACT: The small and large bowel are unremarkable. The appendix is unremarkable. ABDOMINAL WALL: No significant hernia is appreciated. LYMPH NODES: Normal. VASCULAR: Unremarkable. PELVIC VISCERA: Unremarkable. OSSEOUS STRUCTURES: Unremarkable. CT/CT abdomen pelvis wo con IMPRESSION: The Marques catheter is positioned within the prosthetic urethra and the urinary bladder is markedly distended with mild bilateral hydroureteronephrosis and prominent perinephric stranding. The Marques catheter needs to be repositioned. Cholelithiasis.
--- NOTE | ~2021-08-14 | US_ITS ---
EXAMINATION: US PELVIS LIMITED (BLADDER) CLINICAL INFORMATION: Suprapubic pain. COMPARISON: CT performed earlier same date TECHNIQUE: Real-time imaging of the bladder. FINDINGS: BLADDER: Well distended and normal. Bilateral ureteral jets are demonstrated. Prevoid bladder volume is 686 mL. Patient unable to void with indwelling Marques catheter. The balloon of Marques catheter is identified within the prostate. Prostate is enlarged with a volume of 61 mL. US/US bladder IMPRESSION: Marques catheter incompletely inserted, with balloon inflated in the prostate. Repositioning needed.
[2021-08-14 12:30] VITALS: BP 158/64; PULSE 90; RESP 18; O2SAT 97; BMI 31.8
--- NOTE | 2021-08-14 12:30 | ED.GENADULT ---
HPI - General Adult General Chief complaint: Urogenital-Male Stated complaint: RODRIGUEZ LEAKING Time Seen by Provider: 08/14/21 12:30 Source: patient Mode of arrival: ambulatory Limitations: no limitations History of Present Illness HPI narrative: 76-year-old male with a history of coronary artery disease, chronic kidney disease, diabetes, hepatitis-C, high cholesterol, hypertension, peripheral vascular disease, right carotid stenosis here with complaints of penis pain, and a Rodriguez catheter that is leaking. According to patient he had a Rodriguez catheter placed on the of this month at [facility] which was camera guided. He tells me he was admitted here on the with anemia. He is followed by Dr. Up. He tells me that Dr. Up sent him something for muscle spasms to help with this however he feels like it is not helping. He denies fevers, chills, nausea, vomiting, chest pain, shortness of breath, changes in bowel habits, abdominal pain. Related Data Home Medications Medication Instructions Recorded Confirmed amlodipine 10 mg tablet 1 tab PO DAILY 04/22/20 08/04/21 atorvastatin 40 mg tablet 1 tab PO BEDTIME 04/22/20 08/04/21 insulin glargine 100 unit/mL 80 unit SUBCUT BID 04/22/20 08/04/21 subcutaneous solution (Lantus U-100 Insulin) insulin lispro 100 unit/mL 30 unit SUBCUT TID 04/22/20 08/04/21 subcutaneous solution olmesartan 40 mg tablet 1 tab PO DAILY 04/22/20 08/04/21 gemfibrozil 600 mg tablet 600 mg PO BID 05/19/20 08/04/21 hydralazine 100 mg tablet 100 mg PO BID tab 05/19/20 08/04/21 omeprazole 20 mg capsule,delayed 1 cap PO DAILY 05/24/20 08/04/21 release insulin syringe-needle U-100 1 mL #10 ea 09/21/20 08/04/21 28 gauge x 1/2 docosahexaenoic acid (dha)-epa 1 cap PO DAILY 04/14/21 08/04/21 capsule furosemide 20 mg tablet 1 tab PO DAILY 08/04/21 08/04/21 metoprolol succinate 200 mg 0.5 tab PO BID 08/04/21 08/04/21 tablet,extended release 24 hr spironolactone 25 mg tablet 1 tab PO DAILY 08/04/21 08/04/21 Previous Rx's Medication Instructions Recorded oxybutynin chloride 5 mg 5 mg PO DAILY PRN #14 tab 08/10/21 tablet,extended release 24 hr Allergies Allergy/AdvReac Type Severity Reaction Status Date / Time No Known Allergies Allergy Verified 01/07/21 09:26 [No Known Allergies*] [facility] Past Medical History 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 CAD (coronary artery disease) Chronic kidney disease, stage 3 CVA (cerebral vascular accident) Diabetes Difficult Rodriguez catheter placement H/O cataract Hepatitis C High cholesterol HTN (hypertension) Hyperlipidemia Iron deficiency anemia due to chronic blood loss Metabolic acidosis with increased anion gap and accumulation of organic acids Metabolic acidosis with normal anion gap and bicarbonate losses Peripheral vascular disease Surgical History History of ankle surgery History of esophagogastroduodenoscopy (EGD) Hx of colonoscopy S/P CABG (coronary artery bypass graft) (~2006) S/P carotid endarterectomy (~08/2018) Family History Family History Other CAD (coronary artery disease) Social History Social History Household Members: Spouse Housing: House Do you presently have visiting nurse or other home services: No Alcohol intake: never Patient Tobacco Use Status: Never used Tobacco e-Cigarette/Vaping Use: Never Used Substance Use Type: Marijuana Advance Directives: Yes Advance Directives on File: Yes Advance Directives Date on File: 04/15/21 service: No Current occupational status: retired Physical Exam ED Vital Signs: Vital Signs - 24 hr 08/14/21 12:30 08/14/21 15:15 08/14/21 19:40 Temperature Pulse Rate 90 73 Respiratory Rate 18 26 H 16 Blood Pressure 158/64 H 158/62 H Pulse Oximetry 97 08/14/21 21:31 Temperature 98.3 F Pulse Rate 96 Respiratory Rate 16 Blood Pressure 161/63 H Pulse Oximetry 95 BMI result Body Mass Index 31.8 Course Reevaluation(s) Reevaluation #1: Spoke to Dr. Up who tells me to give patient 5 mg tablet of oxybutynin. He also tells me patient should be scheduled for a voiding trial in the near future. Patient noted to have a slight leukocytosis, H&H is low however higher than usual, as well as increased platelets likely secondary to hemoconcentration. Patient is noted to have a slight DOMENICO for this reason he is receiving hydration. Lactic acid negative. Unlikely that this is a urosepsis. Time: 12:55 Reevaluation #2: Patient still reports severe pain despite pain medicine. I did speak to Dr. Up as patient's bladder scan shows that he is retaining urine despite the Rodriguez catheter. He recommends deflating it, advancing into the bladder, Ree inflating and then flushing with 60 cc. He tells me the Rodriguez should be draining. Time: 17:47 Reevaluation #3: Bladder scan at this time 845, Dr. Up recommends taking this Rodriguez catheter out and replacing it with a coude. When I flushed 60 cc in I got no return. This could be a clogged urinary catheter causing acute urinary retention and muscle spasms. Time: 20:33 Additional Reevaluation(s): I was able to successfully place a 16 gauge coude into patient however still no urine output, for this reason we have not been able to send a urine sample. Dr. Up aware, spoke to him again who recommends of bladder ultrasound CT of the abdomen pelvis dry. To rule out obstructing causes. At this time emergent ultrasound has been placed as patient has a bladder scan of 845 acute urinary retention despite a urinary catheter in place. 2158 Since we have not been able to get a urine, antibiotics will be initiated to cover for persumed UTI. Sign out given to . 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 Data Result diagrams: 08/14/21 13:16 08/14/21 13:16 Labs: Lab Results 08/14/21 08/14/21 08/14/21 Range/Units 13:16 13:16 13:16 WBC 12.6 H (4.8-10.8) X10*3/uL RBC 3.50 L (4.60-5.80) X10*6/uL Hgb 9.9 L (14.0-18.0) g/dl Hct 31.9 L (42.0-52.0) % MCV 91.1 (80.0-98.0) fL MCH 28.3 (27.0-33.0) pg MCHC 31.0 (31.0-36.0) g/dl RDW 15.5 (11.0-16.0) % Plt Count 570 H D (160-400) X10*3/uL MPV 9.2 L (9.4-12.4) fL Immature Gran % (Auto) 0.6 H (0.0-0.4) % Neut % (Auto) 81.6 H (45-73) % Lymph % (Auto) 9.2 L (20-40) % Willacy % (Auto) 6.7 (2-11) % Eos % (Auto) 1.4 (0-4) % Baso % (Auto) 0.5 (0-2) % Lymph # (Auto) 1.2 (1.2-4.9) X10*3/uL Willacy # (Auto) 0.8 (0.1-1.2) X10*3/uL Eos # (Auto) 0.2 (0.0-0.4) X10*3/uL Baso # (Auto) 0.1 (0.0-0.2) X10*3/uL Abs Immat Gran (auto) 0.08 H (0.00-0.03) X10*3/uL Absolute Neuts (auto) 10.3 H (2.0-8.3) x10*3/uL Absolute Nucleated RBC 0.000 (0.0-0.012) X10*3/uL Nucleated RBC % (auto) 0.0 (0.0-0.2) /100WBC Sodium 140 (135-145) mmol/L Potassium 4.8 (3.3-5.1) mmol/L Chloride 109 H (96-108) mmol/L Carbon Dioxide 17 L (22-29) mmol/L Anion Gap 19 (12-20) BUN 30 H (9-16) mg/dL Creatinine 1.54 H (0.5-1.4) mg/dL Estim Creat Clear Calc 48.5 Estimated GFR 44 Random Glucose 121 H (60-115) mg/dL Lactic Acid (0.5-2.0) mmol/L Calcium 9.6 (8.4-10.2) mg/dL Magnesium 2.1 (1.6-2.6) mg/dL Total Bilirubin 0.5 (0.0-1.0) mg/dL AST 21 (5-37) U/L ALT 13 (0-40) U/L Alkaline Phosphatase 163 H D (39-117) U/L Total Protein 7.5 D (6.5-8.0) g/dL Albumin 4.3 D (3.5-5.0) g/dL COVID-19 (NEL) Negative (Negative) COVID-19 Clin Com See Note 08/14/21 Range/Units 16:09 WBC (4.8-10.8) X10*3/uL RBC (4.60-5.80) X10*6/uL Hgb (14.0-18.0) g/dl Hct (42.0-52.0) % MCV (80.0-98.0) fL MCH (27.0-33.0) pg MCHC (31.0-36.0) g/dl RDW (11.0-16.0) % Plt Count (160-400) X10*3/uL MPV (9.4-12.4) fL Immature Gran % (Auto) (0.0-0.4) % Neut % (Auto) (45-73) % Lymph % (Auto) (20-40) % Willacy % (Auto) (2-11) % Eos % (Auto) (0-4) % Baso % (Auto) (0-2) % Lymph # (Auto) (1.2-4.9) X10*3/uL Willacy # (Auto) (0.1-1.2) X10*3/uL Eos # (Auto) (0.0-0.4) X10*3/uL Baso # (Auto) (0.0-0.2) X10*3/uL Abs Immat Gran (auto) (0.00-0.03) X10*3/uL Absolute Neuts (auto) (2.0-8.3) x10*3/uL Absolute Nucleated RBC (0.0-0.012) X10*3/uL Nucleated RBC % (auto) (0.0-0.2) /100WBC Sodium (135-145) mmol/L Potassium (3.3-5.1) mmol/L Chloride (96-108) mmol/L Carbon Dioxide (22-29) mmol/L Anion Gap (12-20) BUN (9-16) mg/dL Creatinine (0.5-1.4) mg/dL Estim Creat Clear Calc Estimated GFR Random Glucose (60-115) mg/dL Lactic Acid 0.8 (0.5-2.0) mmol/L Calcium (8.4-10.2) mg/dL Magnesium (1.6-2.6) mg/dL Total Bilirubin (0.0-1.0) mg/dL AST (5-37) U/L ALT (0-40) U/L Alkaline Phosphatase (39-117) U/L Total Protein (6.5-8.0) g/dL Albumin (3.5-5.0) g/dL COVID-19 (NEL) (Negative) COVID-19 Clin Com Critical Care Time Critical Care Time Critical Care Time: Yes Total Critical Care Time: 60 Attestation: I attest to this time spent taking care of the patient, obtaining history, physical, reviewing labs, imaging, speaking to my attending, speaking to specialist. Discharge Plan Discharge Clinical Impression: Acute urinary retention, Complication of Rodriguez catheter Patient Disposition: Still a Patient Prescriptions: No Action oxybutynin chloride 5 mg tablet extended release 24 hr 5 mg PO DAILY PRN (Reason: bladder spasms) Qty: 14 0RF atorvastatin 40 mg tablet 1 tab PO BEDTIME 0RF Lantus U-100 Insulin 100 unit/mL solution 80 unit subcut BID 0RF amlodipine 10 mg tablet 1 tab PO DAILY 0RF insulin lispro 100 unit/mL solution 30 unit subcut TID 0RF olmesartan 40 mg tablet 1 tab PO DAILY 0RF hydralazine 100 mg tablet 100 mg PO BID 0RF gemfibrozil 600 mg tablet 600 mg PO BID 0RF omeprazole 20 mg capsule,delayed release(DR/EC) 1 cap PO DAILY 0RF docosahexaenoic acid-epa Capsule 1 cap PO DAILY 0RF metoprolol succinate 200 mg tablet extended release 24 hr 0.5 tab PO BID 0RF spironolactone 25 mg tablet 1 tab PO DAILY 0RF furosemide 20 mg tablet 1 tab PO DAILY 0RF (DME) insulin syringe-needle U-100 1 mL 28 gauge x 1/2 syringe See Rx Instructions syringe .ROUTE .MEDSUPPLY Qty: 10 0RF Rx Instructions: As directed
[2021-08-14] MEDS: Morphine Sulfate 2 MG/ML CARTRIDGE IVPUSH (13:18)
[2021-08-14 13:20] LABS: MANUAL DIFF FLAG NO
[2021-08-14 13:21] LABS: Basophils Absolute Auto 0.1 X10*3/uL (0.0-0.2); Basophils Percent Auto 0.5 % (0-2); Eosinophils Absolute Auto 0.2 X10*3/uL (0.0-0.4); Eosinophils Percent Auto 1.4 % (0-4); Hematocrit 31.9 % (42.0-52.0); Hemoglobin 9.9 g/dl (14.0-18.0); Imm Gran Abs Auto 0.08 X10*3/uL (0.00-0.03); Imm Gran Pct Auto 0.6 % (0.0-0.4); Lymphocytes Absolute Auto 1.2 X10*3/uL (1.2-4.9); Lymphocytes Percent Auto 9.2 % (20-40); Mean Corpuscular Hemoglobin 28.3 pg (27.0-33.0); Mean Corpuscular Volume 91.1 fL (80.0-98.0); Mean Platelet Volume 9.2 fL (9.4-12.4); Monocytes Absolute Auto 0.8 X10*3/uL (0.1-1.2); Monocytes Percent Auto 6.7 % (2-11); Neutrophils Absolute Auto 10.3 x10*3/uL (2.0-8.3); Neutrophils Percent Auto 81.6 % (45-73); Platelet Count 570 X10*3/uL (160-400); Red Cell Distribution Width 15.5 % (11.0-16.0); White Blood Count 12.6 X10*3/uL (4.8-10.8)
[2021-08-14 13:40] LABS: COVID-19 Test Negative (Negative); IDNOW Serial# 16C4AD1C
[2021-08-14 13:44] LABS: Alanine Aminotransferase 13 U/L (0-40); Albumin Level 4.3 g/dL (3.5-5.0); Alkaline Phosphatase 163 U/L (39-117); Anion Gap 19 (12-20); Aspartate Amino Transferase 21 U/L (5-37); Bilirubin Total 0.5 mg/dL (0.0-1.0); Blood Urea Nitrogen 30 mg/dL (9-16); Calcium 9.6 mg/dL (8.4-10.2); Carbon Dioxide 17 mmol/L (22-29); Chloride 109 mmol/L (96-108); Creatinine Clr Calc Pharmacy 48.5; Estimated Glomerular Filt Rate 44; Glucose Random 121 mg/dL (60-115); Magnesium 2.1 mg/dL (1.6-2.6); Potassium 4.8 mmol/L (3.3-5.1); Sodium 140 mmol/L (135-145); Total Protein 7.5 g/dL (6.5-8.0)
[2021-08-14 15:15] VITALS: BP 158/62; PULSE 73; RESP 26
[2021-08-14] MEDS: HYDROmorphone HCl 0.5 MG/0.5 ML SYRINGE IVPUSH ×3 (15:27→22:22)
[2021-08-14 16:46] LABS: Lactic Acid 0.8 mmol/L (0.5-2.0)
[2021-08-14 19:40] VITALS: RESP 16
[2021-08-14] MEDS: 0.9 % Sodium Chloride 1,000 ML 999 ML IV (19:40)
--- NOTE | 2021-08-14 20:17 | PC.NURSE ---
At provider's request, this RN flushed urinary catheter with 200 mL of sterile water. After the flush was removed, small amount of urine dribbled out of the catheter tubing, with urine flowing around the catheter tubing as well. Marques bag was emptied and tubing was reconnected. Marques rechecked about thirty minutes later with no urine collected and wet pad underneath the PT. PT reported that he had felt the urge to urinate and felt the urine leaking around the catheter.
[2021-08-14] MEDS: Lidocaine HCl 2 % Urojet 10 ML JEL.PF.APP TOPICAL ×2 (20:44)
--- NOTE | 2021-08-14 20:46 | PC.NURSE ---
PT bladder scanned to find 841 mL in the bladder.
[2021-08-14 21:31] VITALS: BP 161/63; PULSE 96; RESP 16; TEMP 36.8; O2SAT 95
[2021-08-14 22:22] VITALS: RESP 18
[2021-08-14 22:41] VITALS: BP 168/81; PULSE 82; RESP 16; O2SAT 95
--- NOTE | 2021-08-14 22:43 | PC.NURSE ---
PT reported considerable pain relief after the urinary catheter was removed the penis. Second liter of NS fluid that was waiting to be hung was held at provider's request. PT currently has full bladder, last measured at 797 mL, and does not require additional NS fluid. Dr. Miller is on his way into the ED to see this PT.
[2021-08-14] MEDS: cefTRIAXone sodium 1 GM in 0.9 % Sodium Chloride 50 ML IV (23:03)
--- NOTE | 2021-08-14 23:04 | PC.NURSE ---
PT reported that he could feel relief with urination and without any pain. Bladder scan performed to find 736 mL in the bladder at this time.
--- NOTE | 2021-08-14 23:08 | PC.NURSE ---
pt noted to be incontinent of urine, per Nelson RN, pt bladder scanned and noted to be retaining 736mL of urine, pt voiding scant amounts at a time. RN aware of bladder scan results. pt tolerated exam well. Incontinence care provided and sheets and absorbent pad changed
--- NOTE | 2021-08-14 23:27 | PM.UROCN ---
History of Present Illness Consult details Consult date: 08/14/21 Narrative: malfunctioning mayo catheter not voiding ER staff unable to exchange Mayo placed using over the wire technique 1000cc in drainage Has appointment Sunday for trial of voiding Review of Systems Constitutional: Constitutional: Reports as per HPI and Reports no additional constitutional complaints Cardiovascular: Cardiovascular: Reports as per HPI and Reports no additional cardiovascular complaints Respiratory: Respiratory: Reports as per HPI and Reports no additional respiratory complaints Gastrointestinal: Gastrointestinal: Reports as per HPI and Reports no additional gastrointestinal complaints Genitourinary: Genitourinary: Reports as per HPI Musculoskeletal: Musculoskeletal: Reports no additional musculoskeletal complaints and Reports as per HPI Neurologic: Reports system reviewed and no additional complaints, except as documented and Reports as per HPI [facility] Past Medical History 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 CAD (coronary artery disease) Chronic kidney disease, stage 3 CVA (cerebral vascular accident) Diabetes Difficult Mayo catheter placement H/O cataract Hepatitis C High cholesterol HTN (hypertension) Hyperlipidemia Iron deficiency anemia due to chronic blood loss Metabolic acidosis with increased anion gap and accumulation of organic acids Metabolic acidosis with normal anion gap and bicarbonate losses Peripheral vascular disease Family History Family History Other CAD (coronary artery disease) Surgical History Surgical History History of ankle surgery History of esophagogastroduodenoscopy (EGD) Hx of colonoscopy S/P CABG (coronary artery bypass graft) (~2006) S/P carotid endarterectomy (~08/2018) Social History Social History Household Members: Spouse Housing: House Do you presently have visiting nurse or other home services: No Alcohol intake: never Patient Tobacco Use Status: Never used Tobacco e-Cigarette/Vaping Use: Never Used Substance Use Type: Marijuana Advance Directives: Yes Advance Directives on File: Yes Advance Directives Date on File: 04/15/21 service: No Current occupational status: retired Meds Allergies Allergy/AdvReac Type Severity Reaction Status Date / Time No Known Allergies Allergy Verified 01/07/21 09:26 [No Known Allergies*] Home Medications Medication Instructions Recorded Confirmed Last Taken Type amlodipine 10 mg tablet 1 tab PO DAILY 04/22/20 08/04/21 08/04/21 History atorvastatin 40 mg tablet 1 tab PO BEDTIME 04/22/20 08/04/21 08/04/21 History insulin glargine 100 unit/mL 80 unit SUBCUT BID 04/22/20 08/04/21 08/04/21 History subcutaneous solution (Lantus U-100 Insulin) insulin lispro 100 unit/mL 30 unit SUBCUT TID 04/22/20 08/04/21 08/04/21 History subcutaneous solution olmesartan 40 mg tablet 1 tab PO DAILY 04/22/20 08/04/21 08/04/21 History gemfibrozil 600 mg tablet 600 mg PO BID 05/19/20 08/04/21 08/04/21 History hydralazine 100 mg tablet 100 mg PO BID tab 05/19/20 08/04/21 08/04/21 History omeprazole 20 mg capsule,delayed 1 cap PO DAILY 05/24/20 08/04/21 08/04/21 History release insulin syringe-needle U-100 1 mL #10 ea 09/21/20 08/04/21 08/04/21 History 28 gauge x 1/2 docosahexaenoic acid (dha)-epa 1 cap PO DAILY 04/14/21 08/04/21 08/04/21 History capsule furosemide 20 mg tablet 1 tab PO DAILY 08/04/21 08/04/21 08/04/21 History metoprolol succinate 200 mg 0.5 tab PO BID 08/04/21 08/04/21 08/04/21 History tablet,extended release 24 hr spironolactone 25 mg tablet 1 tab PO DAILY 08/04/21 08/04/21 08/04/21 History Physical Exam Vital Signs: Vital Signs: Last Vital Signs Temp 98.3 F 08/14/21 21:31 Pulse 82 08/14/21 22:41 Resp 16 08/14/21 22:41 BP 168/81 H 08/14/21 22:41 Pulse Ox 95 08/14/21 22:41 BMI result Body Mass Index 31.8 Const: General: cooperative, healthy appearing, comfortable and no acute distress Orientation/consciousness: patient oriented x3 HEENT: Face and sinus: Yes normal facial exam Mouth: moist mucous membranes Neck: Neck: Yes normal visual inspection, Yes full ROM and Yes trachea midline Chest: Chest palpation & inspection: normal inspection of the chest Resp: Effort & Inspection: normal respiratory effort, able to speak in complete sentences and no respiratory distress GI: Inspection: Yes normal to inspection Back/Spine/Pelvis: Cervical Spine: normal cervical lordosis Thoracic/Lumbar Spine: thoracic and lumbar spine normal to inspection Skin: General skin exam: no rashes or lesions noted Neuro: General: patient oriented x3, tone normal and moves all extremities Extrem: General: Yes normal to inspection and Yes capillary refill normal Results Labs Result diagrams: 08/14/21 13:16 08/14/21 13:16 Labs: Abnormal lab results 08/14/21 08/14/21 Range/Units 13:16 13:16 WBC 12.6 H (4.8-10.8) X10*3/uL RBC 3.50 L (4.60-5.80) X10*6/uL Hgb 9.9 L (14.0-18.0) g/dl Hct 31.9 L (42.0-52.0) % Plt Count 570 H D (160-400) X10*3/uL MPV 9.2 L (9.4-12.4) fL Immature Gran % (Auto) 0.6 H (0.0-0.4) % Neut % (Auto) 81.6 H (45-73) % Lymph % (Auto) 9.2 L (20-40) % Abs Immat Gran (auto) 0.08 H (0.00-0.03) X10*3/uL Absolute Neuts (auto) 10.3 H (2.0-8.3) x10*3/uL Chloride 109 H (96-108) mmol/L Carbon Dioxide 17 L (22-29) mmol/L BUN 30 H (9-16) mg/dL Creatinine 1.54 H (0.5-1.4) mg/dL Random Glucose 121 H (60-115) mg/dL Alkaline Phosphatase 163 H D (39-117) U/L Short CBC 08/14/21 Range/Units 13:16 WBC 12.6 H (4.8-10.8) X10*3/uL Hgb 9.9 L (14.0-18.0) g/dl Hct 31.9 L (42.0-52.0) % Plt Count 570 H D (160-400) X10*3/uL BMP 08/14/21 13:16 Sodium 140 Potassium 4.8 Chloride 109 H Carbon Dioxide 17 L BUN 30 H Creatinine 1.54 H Calcium 9.6 Liver Function 08/14/21 Range/Units 13:16 Total Bilirubin 0.5 (0.0-1.0) mg/dL AST 21 (5-37) U/L ALT 13 (0-40) U/L Alkaline Phosphatase 163 H D (39-117) U/L Albumin 4.3 D (3.5-5.0) g/dL All other labs normal. Assessment and Plan (1) Complication of Mayo catheter: Status: Acute Procedures Date of Service Date of Service: 08/14/21 Catheter Insertion (Urinary) Replacement of catheter present on admission: Yes Reason for placing: Acute urinary retention Bladder scan/ultrasound used before catheterization: Yes Estimated amount of urine (mLs): 750 Catheter type/location: 2-way Urethral Size (Azeri): 16 Catheter balloon size (mL): 10 Results: successfully catheterized-immediate flow (1000cc)
[2021-08-15 00:31] VITALS: BP 141/51; PULSE 75; RESP 20; O2SAT 95
[2021-08-15 00:32] LABS: Appearance Urine CLOUDY; Color Urine YELLOW; Glucose Urine UA NEG (NEG); Leukocyte Esterase Urine 2+ (NEG); Nitrite Urine NEG (NEG); Specific Gravity - Urine 1.015 (1.005-1.025); UACC Culture Trigger YES; Urine Blood 1+ (NEG); Urine Ketones NEG (NEG); Urine Protein 1+ MG/DL (NEG-TRACE)
[2021-08-15 00:46] LABS: Bacteria Urine TRACE /LPF; RBC Urine 0-2 /HPF (0); WBC Urine 50-75 /HPF (0-4)
[2021-08-15 02:08] VITALS: BP 158/62; PULSE 70; RESP 16; O2SAT 96
[2021-08-15 06:05] VITALS: BP 163/59; PULSE 73; RESP 16; TEMP 36.4; O2SAT 97
[2021-08-15 07:02] VITALS: BP 164/65; PULSE 68; RESP 14; TEMP 36.4; O2SAT 96
== END 2021-08-15 08:13 | disposition home or self-care (01) ==
PROVIDERS: Physician Assistant; Emergency Provider Emergency Medicine Emergency Medical Services; PCP Internal Medicine
DX: T83.031A Leakage of indwelling urethral catheter, initial encounter (principal); R33.9 Retention of urine, unspecified; Y84.6 Urinary catheterization as the cause of abnormal reaction of the patient, or of later complication, without mention of misadventure at the time of the procedure; Y92.9 Unspecified place or not applicable; E11.22 Type 2 diabetes mellitus with diabetic chronic kidney disease; I12.9 Hypertensive chronic kidney disease with stage 1 through stage 4 chronic kidney disease, or unspecified chronic kidney disease; N18.9 Chronic kidney disease, unspecified; I25.10 Atherosclerotic heart disease of native coronary artery without angina pectoris; Z20.822 Contact with and (suspected) exposure to COVID-19
CPT/HCPCS: 36415; 51702; 51798; 74176; 76857; 80053; 81001; 83605; 83735; 85025; 87040; 87086; 87088; 87635; 96361; 96365; 96375; 96376; 99285; 99291; J0696; J1170; J2270

== ENCOUNTER → 2021-08-16 08:19 | Outpatient (BNVA) | payer MEDICARE, SELFPAY | PROVIDERS: PCP Internal Medicine | DX: Z13.89 Encounter for screening for other disorder (principal) ==

== ENCOUNTER → 2021-08-18 10:36 | Outpatient (BNVA) | payer MEDICARE, SELFPAY | PROVIDERS: PCP Internal Medicine; Visit Provider Surgery Vascular Surgery | DX: I65.23 Occlusion and stenosis of bilateral carotid arteries (principal) | CPT/HCPCS: 99212 ==

== ENCOUNTER → 2021-08-30 09:38 | Outpatient (BNVA) | payer MEDICARE, SELFPAY | PROVIDERS: PCP Internal Medicine; Visit Provider Urology | DX: N40.1 Benign prostatic hyperplasia with lower urinary tract symptoms (principal); N13.8 Other obstructive and reflux uropathy; R33.8 Other retention of urine | CPT/HCPCS: 51702; 51703; 52000; 99212 ==

== ENCOUNTER → 2021-09-01 10:31 | Outpatient (BNVA) | payer MEDICARE, SELFPAY | PROVIDERS: PCP Internal Medicine; Visit Provider Urology | DX: T83.9XXA Unspecified complication of genitourinary prosthetic device, implant and graft, initial encounter (principal) | CPT/HCPCS: 51700 ==

== ENCOUNTER → 2021-09-09 13:19 | Outpatient (BNVA) | payer MEDICARE, SELFPAY | PROVIDERS: PCP Internal Medicine; Visit Provider Urology | DX: T83.9XXA Unspecified complication of genitourinary prosthetic device, implant and graft, initial encounter (principal) | CPT/HCPCS: 51700 ==

== ENCOUNTER 2021-09-18 09:11 | Emergency (ER) | payer MEDICARE, SELFPAY ==
--- NOTE | 2021-09-18 09:51 | ED.MALEGU ---
HPI - Male Genitourinary General Chief complaint: Urogenital-Male Stated complaint: Mayo is blocked/leaking Time Seen by Provider: 09/18/21 09:51 Source: patient Mode of arrival: ambulatory Limitations: no limitations History of Present Illness HPI Narrative: ran out of his oxybutnin and since then noted urine leaking around his catheter, cath placed 08/30 has plans with jimmy on 10/10 for [facility] prostatectomy Complaint: other (leaking around mayo catheter) Onset (ago): day(s) (today) Duration: intermittent Location: penis Severity: mild Relieving factors: none Exacerbating factors: urination Context: indwelling catheter and other (ran out of his oxybutnin) Associated symptoms: Reports denies other symptoms Related Data Home Medications Medication Instructions Recorded Confirmed amlodipine 10 mg tablet 1 tab PO DAILY 04/22/20 08/30/21 atorvastatin 40 mg tablet 1 tab PO BEDTIME 04/22/20 08/30/21 insulin glargine 100 unit/mL 80 unit SUBCUT BID 04/22/20 08/30/21 subcutaneous solution (Lantus U-100 Insulin) insulin lispro 100 unit/mL 30 unit SUBCUT TID 04/22/20 08/30/21 subcutaneous solution olmesartan 40 mg tablet 1 tab PO DAILY 04/22/20 08/30/21 gemfibrozil 600 mg tablet 600 mg PO BID 05/19/20 08/30/21 hydralazine 100 mg tablet 100 mg PO BID tab 05/19/20 08/30/21 omeprazole 20 mg capsule,delayed 1 cap PO DAILY 05/24/20 08/30/21 release insulin syringe-needle U-100 1 mL #10 ea 09/21/20 08/30/21 28 gauge x 1/2 docosahexaenoic acid (dha)-epa 1 cap PO DAILY 04/14/21 08/30/21 capsule furosemide 20 mg tablet 1 tab PO DAILY 08/04/21 08/30/21 metoprolol succinate 200 mg 0.5 tab PO BID 08/04/21 08/30/21 tablet,extended release 24 hr spironolactone 25 mg tablet 1 tab PO DAILY 08/04/21 08/30/21 acetaminophen 500 mg tablet 500 mg PO Q6H PRN 08/18/21 08/30/21 bacitracin 500 unit/gram topical TOPICAL BID 08/18/21 08/30/21 ointment clopidogrel 75 mg tablet 75 mg PO DAILY 08/18/21 08/30/21 doxycycline hyclate 100 mg tablet 100 mg PO BID 08/18/21 08/30/21 spironolactone 25 1 tab PO DAILY 08/30/21 08/30/21 mg-hydrochlorothiazide 25 mg tablet Previous Rx's Medication Instructions Recorded oxybutynin chloride 5 mg 5 mg PO DAILY PRN #14 tab 08/10/21 tablet,extended release 24 hr cefuroxime axetil 500 mg tablet 500 mg PO Q12H #14 tab 08/16/21 fluconazole 150 mg tablet 150 mg PO Q3D #2 tab 08/17/21 (Diflucan) finasteride 5 mg tablet 5 mg PO DAILY 90 Days #90 tab 08/30/21 terazosin 5 mg capsule 5 mg PO BEDTIME 90 Days #90 cap 08/30/21 oxybutynin chloride 5 mg tablet 5 mg PO Q8H PRN #50 tab 08/31/21 cefuroxime axetil 250 mg tablet 250 mg PO BID 7 Days #14 tab 09/18/21 oxybutynin chloride 5 mg tablet 5 mg PO TID PRN #60 tab 09/18/21 Allergies Allergy/AdvReac Type Severity Reaction Status Date / Time No Known Allergies Allergy Verified 09/18/21 09:52 [No Known Allergies*] Review of Systems Review of Systems: Constitutional : No Weight loss, No Fever, No Chills, No Fatigue, No Malaise ENT/Mouth : No sore throat, No Rhinorrhea Eyes: No Eye Pain, No Swelling, No Redness Cardiovascular : No Chest Pain, No SOB, No Dyspnea on Exertion, No Orthopnea, No Edema, No Palpitations Respiratory : No Cough, No Sputum, No Wheezing Gastrointestinal : No Nausea, No Vomiting, No Diarrhea, No Constipation, No abdominal Pain, No Hematochezia, No Melena Genitourinary : No Dysuria, No Urinary Frequency, No Hematuria, pos leaking around catheter Musculoskeletal : No joint pain, No Myalgias, No Joint Swelling Skin : No Skin Lesions, No rash Neuro : No Weakness, No Numbness, No Dizziness, No Headache Psych : No Anxiety/Panic, No Depression All other systems reviewed and are negative [facility] Past Medical History Attestation statement: The following information was validated with the patient. Source: old records reviewed Medical History Acute kidney injury Adenomatous colon polyp Amputation of left great toe Anemia Johnson esophagus Blind right eye CAD (coronary artery disease) Chronic kidney disease, stage 3 CVA (cerebral vascular accident) Diabetes Difficult Mayo catheter placement H/O cataract Hepatitis C High cholesterol HTN (hypertension) Hyperlipidemia Iron deficiency anemia due to chronic blood loss Metabolic acidosis with increased anion gap and accumulation of organic acids Metabolic acidosis with normal anion gap and bicarbonate losses Peripheral vascular disease Surgical History History of ankle surgery History of esophagogastroduodenoscopy (EGD) Hx of colonoscopy Parotid mass (07/28/21) S/P CABG (coronary artery bypass graft) (~2006) S/P carotid endarterectomy (~08/2018) Family History Family History Other CAD (coronary artery disease) Social History Social History Household Members: Spouse Housing: House Do you presently have visiting nurse or other home services: No Alcohol intake: never Patient Tobacco Use Status: Never used Tobacco e-Cigarette/Vaping Use: Never Used Substance Use Type: Marijuana Advance Directives: Yes Advance Directives on File: Yes Advance Directives Date on File: 04/15/21 service: No Current occupational status: retired Physical Exam Vital Signs: Vital Signs: Last Vital Signs Temp 98.4 F 09/18/21 09:53 Pulse 77 09/18/21 09:53 Resp 18 09/18/21 09:53 BP 160/52 H 09/18/21 09:53 Pulse Ox 98 09/18/21 09:53 BMI result Body Mass Index 33.0 Appearance: Alert. Oriented X3. No acute distress. Eyes: Pupils equal, round and reactive to light. ENT: Pharynx normal. Neck: Normal inspection. Neck supple. CVS: Normal heart rate and rhythm. Pulses normal. Respiratory: No respiratory distress. Breath sounds normal. Abdomen: Soft and nontender. no flank pain : sediment noted in catheter Skin: Skin warm and dry. Normal skin color. Normal skin turgor. Extremities: No lower extremity edema. No calf ttp Neuro: Oriented X 3. No motor deficit. No sensory deficit. Course Course Course Narrative: irrigated successfully and mayo is flowing no issues UA sent off + UA will start on ceftin 250mg BID and diflucan MDM - Male Genitourinary MDM Narrative Medical decision making narrative: 76 yo male with hx of BPH chronic mayo, HTN, DM, here with c/o leaking around mayo cath after running out of his oxybutnin denies abdominal/back pain or nausea/vomiting fevers - at this time has had this in the past that required flushing. Has good urology follow up will give oxybutnin flush catheter and test UA. Lab Data Labs: Lab Results 09/18/21 Range/Units 10:44 Urine Color YELLOW Urine Appearance HAZY Urine pH 6.0 (5.0-8.0) Ur Specific [place] <= 1.005 (1.005-1.025) Urine Protein TRACE (NEG-TRACE) MG/DL Urine Glucose (UA) NEG (NEG) MG/DL Urine Ketones NEG (NEG) MG/DL Urine Blood NEG (NEG) Urine Nitrite NEG (NEG) Ur Leukocyte Esterase 2+ H (NEG) Urine RBC 0-2 (0) /HPF Urine WBC 50-75 H (0-4) /HPF Ur Squamous Epith Cells NONE /LPF Urine Bacteria TRACE /LPF Urine Yeast 2+ /HPF Discharge Plan Discharge Clinical Impression: Acute UTI Complication, blocked Mayo catheter Qualifiers: Encounter type: initial encounter Qualified Code(s): T83.091A - Other mechanical complication of indwelling urethral catheter, initial encounter Patient Disposition: Home, Self-Care Instructions: Mayo Catheter Placement and Care (ED), Urinary Tract Infection in Older Adults (ED) Additional Instructions: return to ED for any worsening symptoms or concerns please keep your appointments Prescriptions: New cefuroxime axetil 250 mg tablet 250 mg PO BID 7 Days Qty: 14 0RF oxybutynin chloride 5 mg tablet 5 mg PO TID PRN (Reason: bladder spasms) Qty: 60 0RF No Action oxybutynin chloride 5 mg tablet extended release 24 hr 5 mg PO DAILY PRN (Reason: bladder spasms) Qty: 14 0RF oxybutynin chloride 5 mg tablet 5 mg PO Q8H PRN (Reason: bladder spasms) Qty: 50 0RF atorvastatin 40 mg tablet 1 tab PO BEDTIME 0RF Lantus U-100 Insulin 100 unit/mL solution 80 unit subcut BID 0RF amlodipine 10 mg tablet 1 tab PO DAILY 0RF insulin lispro 100 unit/mL solution 30 unit subcut TID 0RF olmesartan 40 mg tablet 1 tab PO DAILY 0RF hydralazine 100 mg tablet 100 mg PO BID 0RF gemfibrozil 600 mg tablet 600 mg PO BID 0RF omeprazole 20 mg capsule,delayed release(DR/EC) 1 cap PO DAILY 0RF fluconazole [Diflucan] 150 mg tablet 150 mg PO Q3D Qty: 2 0RF docosahexaenoic acid-epa Capsule 1 cap PO DAILY 0RF metoprolol succinate 200 mg tablet extended release 24 hr 0.5 tab PO BID 0RF spironolactone 25 mg tablet 1 tab PO DAILY 0RF furosemide 20 mg tablet 1 tab PO DAILY 0RF (DME) insulin syringe-needle U-100 1 mL 28 gauge x 1/2 syringe See Rx Instructions syringe .ROUTE .MEDSUPPLY Qty: 10 0RF Rx Instructions: As directed acetaminophen 500 mg tablet 500 mg PO Q6H PRN (Reason: pain) 0RF bacitracin 500 unit/gram ointment topical BID 0RF clopidogrel 75 mg tablet 75 mg PO DAILY 0RF doxycycline hyclate 100 mg tablet 100 mg PO BID 0RF cefuroxime axetil 500 mg tablet 500 mg PO Q12H Qty: 14 0RF spironolacton-hydrochlorothiaz 25-25 mg tablet 1 tab PO DAILY 0RF terazosin 5 mg capsule 5 mg PO BEDTIME 90 Days Qty: 90 1RF finasteride 5 mg tablet 5 mg PO DAILY 90 Days Qty: 90 1RF
[2021-09-18 09:53] VITALS: BP 160/52; PULSE 77; RESP 18; TEMP 36.9; O2SAT 98; BMI 33.0
[2021-09-18 10:51] LABS: Appearance Urine HAZY; Color Urine YELLOW; Glucose Urine UA NEG (NEG); Leukocyte Esterase Urine 2+ (NEG); Nitrite Urine NEG (NEG); Specific Gravity - Urine <= 1.005 (1.005-1.025); UACC Culture Trigger YES; Urine Blood NEG (NEG); Urine Ketones NEG (NEG); Urine Protein TRACE MG/DL (NEG-TRACE)
[2021-09-18 10:59] LABS: WBC Urine 50-75 /HPF (0-4)
[2021-09-18 11:00] LABS: Bacteria Urine TRACE /LPF; RBC Urine 0-2 /HPF (0)
[2021-09-18] MEDS: Fluconazole 150 MG TABLET PO (11:19)
== END 2021-09-18 11:30 | disposition home or self-care (01) ==
PROVIDERS: Emergency Provider Emergency Medicine; PCP Internal Medicine
DX: T83.038A Leakage of other urinary catheter, initial encounter (principal); Y84.6 Urinary catheterization as the cause of abnormal reaction of the patient, or of later complication, without mention of misadventure at the time of the procedure; Y92.9 Unspecified place or not applicable; N39.0 Urinary tract infection, site not specified; N40.0 Benign prostatic hyperplasia without lower urinary tract symptoms; I10 Essential (primary) hypertension; E11.9 Type 2 diabetes mellitus without complications
CPT/HCPCS: 51700; 51798; 81001; 87086; 99283; 99284

== ENCOUNTER 2021-10-02 08:50 | Emergency (ER) | payer MEDICARE, SELFPAY ==
--- NOTE | ~2021-10-02 | XR_ITS ---
EXAMINATION: XR CHEST CLINICAL INFORMATION: SOB COMPARISON: None TECHNIQUE: 2 views of the chest were obtained. FINDINGS: The lungs are well-expanded and clear acute pneumonic process. Heart size and pulmonary vascularity is normal. No gross bony abnormality seen. There are median sternotomy sutures from previous intervention. XR/XR chest 2V IMPRESSION: Unremarkable chest exam.
--- NOTE | ~2021-10-02 | US_ITS ---
EXAMINATION: US VENOUS ULTRASOUND WITH DOPPLER LOWER EXTREMITY, BILATERAL CLINICAL INFORMATION: Edema COMPARISON: None TECHNIQUE: Ultrasound of the deep veins is performed from the hip to the calf with compression sonography and color and pulse Doppler assessment. Spectral analysis with color-flow imaging is performed. FINDINGS: RIGHT: There is normal venous compression and respiratory variation and augmented flow. The visualized common femoral vein, superficial femoral vein, profunda femoral vein, popliteal vein, and the trifurcation region shows no evidence of deep venous thrombosis. There is no significant popliteal fossa cyst. . LEFT: There is normal venous compression and respiratory variation and augmented flow. The visualized common femoral vein, superficial femoral vein, profunda femoral vein, popliteal vein, and the trifurcation region shows no evidence of deep venous thrombosis. There is no significant popliteal fossa cyst. . If the patient's symptoms persist, followup ultrasound in 5 days 7 days might be of value to exclude proximal propagation from a non-visualized calf vein. US/US venous duplex LE BI IMPRESSION: No DVT demonstrated in the bilateral lower extremity.
[2021-10-02 08:57] VITALS: BP 173/42; PULSE 87; RESP 18; TEMP 36.5; O2SAT 98; BMI 33.7
--- NOTE | 2021-10-02 09:12 | ED_ITS ---
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 Reports that he was seen here approximately last week and had his Mayo flushed and was diagnosed with the UTI and placed on antibiotics and he reports he took as prescribed. He reports he does not want the Mayo removed due to Dr. Up has to use a camera to put the Mayo in therefore he does not want this Mayo to be removed due to he knows how Telfa can be to place back in. He reports that he has an appointment with Dr. Up on the October 13 for GreenLight prostatectomy although he reports he is going to call him tomorrow for sooner appointment. I also noticed that the patient seems short of breath on exam and he has lower extremity edema and he reports that he has chronic shortness of breath/dyspnea on exertion/orthopnea and is on a water pill 25 mg of spironolactone and he is taking as prescribed and has a follow-up with his mobile battery technician at the end of this month as well. He denies any fevers, chills, dizziness, headaches, neck pain/stiffness, trouble swallowing or breathing, chest pain, worsening shortness of breath/dyspnea on exertion than his baseline he reports, orthopnea, palpitations, paresthesias, nausea/vomiting/diarrhea constipation, abdominal pain, back pain, flank pain, hematuria or rashes or any other symptoms complaints or concerns at this time MD Complaint: other (Urine leaking around the Mayo catheter Mayo catheter block) Onset (ago): day(s) (Since yesterday) Duration: constant Location: penis Severity: mild Relieving factors: none Exacerbating factors: urination Context: indwelling catheter Associated symptoms: Reports denies other symptoms Related Data Home Medications Medication Instructions Recorded Confirmed amlodipine 10 mg tablet 1 tab PO DAILY 04/22/20 08/30/21 atorvastatin 40 mg tablet 1 tab PO BEDTIME 04/22/20 08/30/21 insulin glargine 100 unit/mL 80 unit SUBCUT BID 04/22/20 08/30/21 subcutaneous solution (Lantus U-100 Insulin) insulin lispro 100 unit/mL 30 unit SUBCUT TID 04/22/20 08/30/21 subcutaneous solution olmesartan 40 mg tablet 1 tab PO DAILY 04/22/20 08/30/21 gemfibrozil 600 mg tablet 600 mg PO BID 05/19/20 08/30/21 hydralazine 100 mg tablet 100 mg PO BID tab 05/19/20 08/30/21 omeprazole 20 mg capsule,delayed 1 cap PO DAILY 05/24/20 08/30/21 release insulin syringe-needle U-100 1 mL #10 ea 09/21/20 08/30/21 28 gauge x 1/2 docosahexaenoic acid (dha)-epa 1 cap PO DAILY 04/14/21 08/30/21 capsule furosemide 20 mg tablet 1 tab PO DAILY 08/04/21 08/30/21 metoprolol succinate 200 mg 0.5 tab PO BID 08/04/21 08/30/21 tablet,extended release 24 hr spironolactone 25 mg tablet 1 tab PO DAILY 08/04/21 08/30/21 acetaminophen 500 mg tablet 500 mg PO Q6H PRN 08/18/21 08/30/21 bacitracin 500 unit/gram topical TOPICAL BID 08/18/21 08/30/21 ointment clopidogrel 75 mg tablet 75 mg PO DAILY 08/18/21 08/30/21 doxycycline hyclate 100 mg tablet 100 mg PO BID 08/18/21 08/30/21 spironolactone 25 1 tab PO DAILY 08/30/21 08/30/21 mg-hydrochlorothiazide 25 mg tablet Previous Rx's Medication Instructions Recorded oxybutynin chloride 5 mg 5 mg PO DAILY PRN #14 tab 08/10/21 tablet,extended release 24 hr cefuroxime axetil 500 mg tablet 500 mg PO Q12H #14 tab 08/16/21 fluconazole 150 mg tablet 150 mg PO Q3D #2 tab 08/17/21 (Diflucan) finasteride 5 mg tablet 5 mg PO DAILY 90 Days #90 tab 08/30/21 terazosin 5 mg capsule 5 mg PO BEDTIME 90 Days #90 cap 08/30/21 oxybutynin chloride 5 mg tablet 5 mg PO Q8H PRN #50 tab 08/31/21 cefuroxime axetil 250 mg tablet 250 mg PO BID 7 Days #14 tab 09/18/21 oxybutynin chloride 5 mg tablet 5 mg PO TID PRN #60 tab 09/18/21 levofloxacin 750 mg tablet 750 mg PO DAILY 5 Days #5 tab 10/02/21 Allergies Allergy/AdvReac Type Severity Reaction Status Date / Time No Known Allergies Allergy Verified 09/18/21 09:52 [No Known Allergies*] Review of Systems Review of Systems: Constitutional : No Weight loss, No Fever, No Chills, No Night Sweats, No Fatigue, NoMalaise ENT/Mouth: No ear pain, No sore throat, No Difficulty swallowing Cardiovascular : + chronic shortness of breath/dyspnea on exertion per patient, + LE Edema, No Chest Pain, No Orthopnea, No Palpitations Respiratory : No Cough, No Sputum, No Wheezing, No Dyspnea Gastrointestinal : No Nausea, No Vomiting, No Diarrhea, + abdominal Pain, No Hematochezia, No Melena Genitourinary : + leaking around the Mayo/Mayo catheter block, No testicular pain, No irregular bleeding, No Dysuria, No Urinary Frequency, No Hematuria,No Urinary Incontinence, No Urgency, No Flank Pain Musculoskeletal : No joint pain, No Myalgias, No Joint Swelling Skin : No Skin Lesions, No rash Neuro : No Weakness, No Numbness, No Paresthesias, No Loss of Consciousness, NoDizziness, No Headache Psych : No Social Issues, Heme/Lymph: No Bruising, No Bleeding,No Lymphadenopathy Endocrine : No Polyuria, No Polydipsia, No Temperature Intolerance Yes all other systems are reviewed and are negative [facility] Past Medical History Attestation statement: The following information was validated with the patient. Source: old records reviewed, obtained from family and nursing notes reviewed Medical History Acute kidney injury Adenomatous colon polyp Amputation of left great toe Anemia Johnson esophagus Blind right eye CAD (coronary artery disease) Chronic kidney disease, stage 3 CVA (cerebral vascular accident) Diabetes Difficult Mayo catheter placement H/O cataract Hepatitis C High cholesterol HTN (hypertension) Hyperlipidemia Iron deficiency anemia due to chronic blood loss Metabolic acidosis with increased anion gap and accumulation of organic acids Metabolic acidosis with normal anion gap and bicarbonate losses Peripheral vascular disease Surgical History History of ankle surgery History of esophagogastroduodenoscopy (EGD) Hx of colonoscopy Parotid mass (07/28/21) S/P CABG (coronary artery bypass graft) (~2006) S/P carotid endarterectomy (~08/2018) Family History Family History Other CAD (coronary artery disease) Social History Social History Household Members: Spouse Housing: House Do you presently have visiting nurse or other home services: No Alcohol intake: never Patient Tobacco Use Status: Never used Tobacco e-Cigarette/Vaping Use: Never Used Substance Use Type: Marijuana Advance Directives: Yes Advance Directives on File: Yes Advance Directives Date on File: 04/14/21 service: No Current occupational status: retired Physical Exam Vital Signs: Vital Signs: Last Vital Signs Temp 97.7 F 10/02/21 08:57 Pulse 73 10/02/21 10:28 Resp 18 10/02/21 10:28 BP 135/54 L 10/02/21 10:28 Pulse Ox 96 10/02/21 10:28 BMI result Body Mass Index 33.7 vital signs have been reviewed as normal and appeared to be correct. Blood pressure 173/42. Heart rate normal. Respiration rate normal. Temperature normal. Oxygen saturation normal. Appearance: Alert. Oriented X3. No acute distress. Head: Normal external exam. Normocephalic. Atraumatic. Eyes: PERRLA. EOMI. Conjunctiva and sclera normal. Eyelids normal. ENT: Pharynx normal. Uvula midline. Moist mucous membranes. Neck: Normal inspection. Neck supple. FROM. No adenopathy. No meningeal signs. CVS: Normal heart rate and rhythm. Heart sound normal. No murmurs noted. Pulses normal throughout. Respiratory: No respiratory distress. Painless inspiration. Breath sounds normal. No wheezes/rales/rhonchi noted. Chest nontender. No accessory muscle usage noted or decreased air movement noted. Abdomen: Soft and nontender. Bowel sounds normal in all 4 quadrants. No distention noted. No organomegaly noted. No visible injury noted. No flank pain. : Chaperoned by VALERIA Sanford. Normal external exam with Mayo catheter in place and it appears that there is a lot of sediment in the Mayo catheter to. No hematuria noted. No masses /lumps/ecchymosis/edema/erythema/lacerations/lesions/vesicles/induration or tenderness noted. No hernia noted. No inguinal lymphadenopathy noted. The scrotum is normal. Testicles are both descended bilaterally and appear normal. No hydrocele or scrotal mass/swelling noted. No varicocele. Epididymides normal. No blue dot sign. Back: No CVA tenderness. Full range of motion noted. Skin: Skin warm and dry. Normal skin color. Normal skin turgor. No rashes/lesions/lacerations noted. Extremities: +3 lower extremity pitting edema bilaterally. No calf tenderness is noted. Extremities exhibit normal range of motion. Extremities nontender. Neuro: Oriented X 3. No motor deficit. No sensory deficit. Reflexes normal. Course Course Course Narrative: 9:15am - 76-year-old male with a history of BPH with urinary obstruction/LUTS with Mayo in place presenting to the ED with complaints of his catheter being blocked and leaking around the Mayo catheter to since yesterday. He was seen here approximately on 09/18/2021 for same complaint was diagnosed with UTI placed on antibiotics reports he took as prescribed. When I reviewed the patient's urine culture it revealed [id number] mixed bacterial kristie characteristic of urogenital contamination. He reports he does not want the Mayo removed due to Dr. Up has to use a camera to put the Mayo in therefore he does not want this Mayo to be removed due to he knows how Tough it can be to place back in. He reports that he has an appointment with Dr. Up on the October 13 for GreenLight prostatectomy although he reports he is going to call him tomorrow for sooner appointment. I also noticed that the patient seems short of breath on exam and he has lower extremity edema and he reports that he has chronic shortness of breath/dyspnea on exertion/orthopnea and is on a water pill 25 mg of spironolactone Plan: We immediately flushed the Mayo catheter with normal saline and peroxide and it is now draining on its own. We will send a urine/culture, will obtain labs, chest x-ray and re-evaluate. Reevaluation(s) Reevaluation #1: - labs reviewed and patient mild baseline anemia similar compared to prior. Chloride 110. Carbon dioxide 18. BUN 32. Random glucose 135. BNP 177. - chest x-ray within normal limits no acute processes noted no evidence of CHF at this time - ultrasound of bilateral lower extremity negative for any DVT or any other acute processes. - at this time I do not the believe the patient needs any additional labs or imaging as patient reports this is chronic shortness of breath and he is taking his spironolactone 25 mg as prescribed he denies any orthopnea and he is not tachycardic therefore not consistent with PE therefore I do not believe he needs to be admitted and he reports he has the follow-up with his PCP/mobile battery technician and urologist does not want to be admitted. Therefore at this time will DC home with antibiotics for possible UTI instructions to call his mobile battery technician and Dr. Up tomorrow and to return if any new or worsening symptoms continue taking his previously prescribed medications as previously prescribed. Patient understands agrees with this plan. Time: 12:16 MDM - Male Genitourinary Medical Records Attestation: I reviewed the patient's medical records. Lab Data Attestation: I reviewed the patient's lab results. Result diagrams: 10/02/21 09:51 10/02/21 09:51 Labs: Lab Results 10/02/21 10/02/21 10/02/21 Range/Units 09:44 09:51 09:51 WBC 9.0 (4.8-10.8) X10*3/uL RBC 3.56 L (4.60-5.80) X10*6/uL Hgb 10.0 L (14.0-18.0) g/dl Hct 32.4 L (42.0-52.0) % MCV 91.0 (80.0-98.0) fL MCH 28.1 (27.0-33.0) pg MCHC 30.9 L (31.0-36.0) g/dl RDW 14.5 (11.0-16.0) % Plt Count 297 D (160-400) X10*3/uL MPV 9.2 L (9.4-12.4) fL Immature Gran % (Auto) 0.7 H (0.0-0.4) % Neut % (Auto) 81.2 H (45-73) % Lymph % (Auto) 9.0 L (20-40) % [place] % (Auto) 7.6 (2-11) % Eos % (Auto) 0.9 (0-4) % Baso % (Auto) 0.6 (0-2) % Lymph # (Auto) 0.8 L (1.2-4.9) X10*3/uL [place] # (Auto) 0.7 (0.1-1.2) X10*3/uL Eos # (Auto) 0.1 (0.0-0.4) X10*3/uL Baso # (Auto) 0.1 (0.0-0.2) X10*3/uL Abs Immat Gran (auto) 0.06 H (0.00-0.03) X10*3/uL Absolute Neuts (auto) 7.3 (2.0-8.3) x10*3/uL Absolute Nucleated RBC 0.000 (0.0-0.012) X10*3/uL Nucleated RBC % (auto) 0.0 (0.0-0.2) /100WBC Sodium 140 (135-145) mmol/L Potassium 4.5 (3.3-5.1) mmol/L Chloride 110 H (96-108) mmol/L Carbon Dioxide 18 L (22-29) mmol/L Anion Gap 17 (12-20) BUN 32 H (9-16) mg/dL Creatinine 1.37 (0.5-1.4) mg/dL Estim Creat Clear Calc 56.0 Estimated GFR 51 Random Glucose 135 H (60-115) mg/dL Calcium 9.6 (8.4-10.2) mg/dL Magnesium 1.9 (1.6-2.6) mg/dL Total Bilirubin < 0.2 (0.0-1.0) mg/dL AST 13 (5-37) U/L ALT 10 (0-40) U/L Alkaline Phosphatase 127 H D (39-117) U/L B-Natriuretic Peptide (<100) pg/mL Total Protein 7.4 (6.5-8.0) g/dL Albumin 4.5 (3.5-5.0) g/dL Urine Color YELLOW Urine Appearance CLEAR Urine pH 6.0 (5.0-8.0) Ur Specific [place] 1.010 (1.005-1.025) Urine Protein 1+ H (NEG-TRACE) MG/DL Urine Glucose (UA) NEG (NEG) MG/DL Urine Ketones NEG (NEG) MG/DL Urine Blood NEG (NEG) Urine Nitrite NEG (NEG) Ur Leukocyte Esterase 1+ H (NEG) Urine RBC 0-2 (0) /HPF Urine WBC 5-9 H (0-4) /HPF Urine WBC Clumps NOTED Ur Squamous Epith Cells NONE /LPF Urine Bacteria TRACE /LPF 10/02/21 Range/Units 09:52 WBC (4.8-10.8) X10*3/uL RBC (4.60-5.80) X10*6/uL Hgb (14.0-18.0) g/dl Hct (42.0-52.0) % MCV (80.0-98.0) fL MCH (27.0-33.0) pg MCHC (31.0-36.0) g/dl RDW (11.0-16.0) % Plt Count (160-400) X10*3/uL MPV (9.4-12.4) fL Immature Gran % (Auto) (0.0-0.4) % Neut % (Auto) (45-73) % Lymph % (Auto) (20-40) % [place] % (Auto) (2-11) % Eos % (Auto) (0-4) % Baso % (Auto) (0-2) % Lymph # (Auto) (1.2-4.9) X10*3/uL [place] # (Auto) (0.1-1.2) X10*3/uL Eos # (Auto) (0.0-0.4) X10*3/uL Baso # (Auto) (0.0-0.2) X10*3/uL Abs Immat Gran (auto) (0.00-0.03) X10*3/uL Absolute Neuts (auto) (2.0-8.3) x10*3/uL Absolute Nucleated RBC (0.0-0.012) X10*3/uL Nucleated RBC % (auto) (0.0-0.2) /100WBC Sodium (135-145) mmol/L Potassium (3.3-5.1) mmol/L Chloride (96-108) mmol/L Carbon Dioxide (22-29) mmol/L Anion Gap (12-20) BUN (9-16) mg/dL Creatinine (0.5-1.4) mg/dL Estim Creat Clear Calc Estimated GFR Random Glucose (60-115) mg/dL Calcium (8.4-10.2) mg/dL Magnesium (1.6-2.6) mg/dL Total Bilirubin (0.0-1.0) mg/dL AST (5-37) U/L ALT (0-40) U/L Alkaline Phosphatase (39-117) U/L B-Natriuretic Peptide 177 H (<100) pg/mL Total Protein (6.5-8.0) g/dL Albumin (3.5-5.0) g/dL Urine Color Urine Appearance Urine pH (5.0-8.0) Ur Specific [place] (1.005-1.025) Urine Protein (NEG-TRACE) MG/DL Urine Glucose (UA) (NEG) MG/DL Urine Ketones (NEG) MG/DL Urine Blood (NEG) Urine Nitrite (NEG) Ur Leukocyte Esterase (NEG) Urine RBC (0) /HPF Urine WBC (0-4) /HPF Urine WBC Clumps Ur Squamous Epith Cells /LPF Urine Bacteria /LPF Imaging Data Chest x-ray: Attestation: I personally reviewed and interpreted this imaging study as follows: Radiologist's impression: FINDINGS: The lungs are well-expanded and clear acute pneumonic process. Heart size and pulmonary vascularity is normal. No gross bony abnormality seen. There are median sternotomy sutures from previous intervention. XR/XR chest 2V IMPRESSION: Unremarkable chest exam. Venous duplex ultrasound of bilateral lower extremity: Attestation: I personally reviewed and interpreted this imaging study as follows: Radiologist's impression: FINDINGS: RIGHT: There is normal venous compression and respiratory variation and augmented flow. The visualized common femoral vein, superficial femoral vein, profunda femoral vein, popliteal vein, and the trifurcation region shows no evidence of deep venous thrombosis. ? There is no significant popliteal fossa cyst. . LEFT: There is normal venous compression and respiratory variation and augmented flow. The visualized common femoral vein, superficial femoral vein, profunda femoral vein, popliteal vein, and the trifurcation region shows no evidence of deep venous thrombosis. ? There is no significant popliteal fossa cyst. . If the patient's symptoms persist, followup ultrasound in 5 days 7 days might be of value to exclude proximal propagation from a non-visualized calf vein. US/US venous duplex LE BI IMPRESSION: No DVT demonstrated in the bilateral lower extremity. ECG Data Attestation: I personally reviewed and interpreted this ECG as follows: ECG interpretation date: 10/02/21 ECG interpretation time: 10:10 Interpretation: NSR with a ventricular rate of 75 with a RBBB similar when to prior EKG on 08/04/21 no acute ischemic changes noted. Critical Care Time Critical Care Time Critical Care Time: Yes Total Critical Care Time: 60 Attestation: I personally attest to this time spent taking care of the patient Discharge Plan Discharge Clinical Impression: UTI (urinary tract infection) Patient Disposition: Home, Self-Care Instructions: Urinary Tract Infection in Men (ED), Catheter-associated Urinary Tract Infection (ED) Prescriptions: New levofloxacin 750 mg tablet 750 mg PO DAILY 5 Days Qty: 5 0RF No Action oxybutynin chloride 5 mg tablet extended release 24 hr 5 mg PO DAILY PRN (Reason: bladder spasms) Qty: 14 0RF oxybutynin chloride 5 mg tablet 5 mg PO Q8H PRN (Reason: bladder spasms) Qty: 50 0RF oxybutynin chloride 5 mg tablet 5 mg PO TID PRN (Reason: bladder spasms) Qty: 60 0RF atorvastatin 40 mg tablet 1 tab PO BEDTIME 0RF Lantus U-100 Insulin 100 unit/mL solution 80 unit subcut BID 0RF amlodipine 10 mg tablet 1 tab PO DAILY 0RF insulin lispro 100 unit/mL solution 30 unit subcut TID 0RF olmesartan 40 mg tablet 1 tab PO DAILY 0RF hydralazine 100 mg tablet 100 mg PO BID 0RF gemfibrozil 600 mg tablet 600 mg PO BID 0RF omeprazole 20 mg capsule,delayed release(DR/EC) 1 cap PO DAILY 0RF fluconazole [Diflucan] 150 mg tablet 150 mg PO Q3D Qty: 2 0RF docosahexaenoic acid-epa Capsule 1 cap PO DAILY 0RF metoprolol succinate 200 mg tablet extended release 24 hr 0.5 tab PO BID 0RF spironolactone 25 mg tablet 1 tab PO DAILY 0RF furosemide 20 mg tablet 1 tab PO DAILY 0RF cefuroxime axetil 250 mg tablet 250 mg PO BID 7 Days Qty: 14 0RF (DME) insulin syringe-needle U-100 1 mL 28 gauge x 1/2 syringe See Rx Instructions syringe .ROUTE .MEDSUPPLY Qty: 10 0RF Rx Instructions: As directed acetaminophen 500 mg tablet 500 mg PO Q6H PRN (Reason: pain) 0RF bacitracin 500 unit/gram ointment topical BID 0RF clopidogrel 75 mg tablet 75 mg PO DAILY 0RF doxycycline hyclate 100 mg tablet 100 mg PO BID 0RF cefuroxime axetil 500 mg tablet 500 mg PO Q12H Qty: 14 0RF spironolacton-hydrochlorothiaz 25-25 mg tablet 1 tab PO DAILY 0RF terazosin 5 mg capsule 5 mg PO BEDTIME 90 Days Qty: 90 1RF finasteride 5 mg tablet 5 mg PO DAILY 90 Days Qty: 90 1RF Referrals: Jon Up MD [Physician] - 2 days Elías Arce III, MD [Primary Care Provider] - 2 days
[2021-10-02 09:55] LABS: MANUAL DIFF FLAG NO
--- NOTE | 2021-10-02 09:56 | ECG_ITS ---
Test Reason : SOB Blood Pressure : / mmHG Vent. Rate : 075 BPM Atrial Rate : 075 BPM P-R Int : 180 ms QRS Dur : 154 ms QT Int : 408 ms P-R-T Axes : 047 057 046 degrees QTc Int : 455 ms Normal sinus rhythm Right bundle branch block Abnormal ECG When compared with ECG of 04-AUG-2021 13:13, Premature ventricular complexes are no longer Present Premature atrial complexes are no longer Present Referred By: Rachael Weathers Electronically Signed By:CHUY MACHADO
[2021-10-02 09:57] LABS: Appearance Urine CLEAR; Color Urine YELLOW; Glucose Urine UA NEG (NEG); Leukocyte Esterase Urine 1+ (NEG); Nitrite Urine NEG (NEG); UACC Culture Trigger YES; Urine Blood NEG (NEG); Urine Ketones NEG (NEG); Urine Protein 1+ MG/DL (NEG-TRACE)
[2021-10-02 09:57] LABS: Basophils Absolute Auto 0.1 X10*3/uL (0.0-0.2); Basophils Percent Auto 0.6 % (0-2); Eosinophils Absolute Auto 0.1 X10*3/uL (0.0-0.4); Eosinophils Percent Auto 0.9 % (0-4); Hematocrit 32.4 % (42.0-52.0); Imm Gran Abs Auto 0.06 X10*3/uL (0.00-0.03); Imm Gran Pct Auto 0.7 % (0.0-0.4); Lymphocytes Absolute Auto 0.8 X10*3/uL (1.2-4.9); Mean Corpuscular HGB Conc 30.9 g/dl (31.0-36.0); Mean Corpuscular Hemoglobin 28.1 pg (27.0-33.0); Mean Platelet Volume 9.2 fL (9.4-12.4); Monocytes Absolute Auto 0.7 X10*3/uL (0.1-1.2); Monocytes Percent Auto 7.6 % (2-11); Neutrophils Absolute Auto 7.3 x10*3/uL (2.0-8.3); Neutrophils Percent Auto 81.2 % (45-73); Platelet Count 297 X10*3/uL (160-400); Red Blood Count 3.56 X10*6/uL (4.60-5.80); Red Cell Distribution Width 14.5 % (11.0-16.0)
[2021-10-02 10:07] LABS: RBC Urine 0-2 /HPF (0)
[2021-10-02 10:08] LABS: Bacteria Urine TRACE /LPF; WBC Clumps Urine NOTED
[2021-10-02 10:22] LABS: Alanine Aminotransferase 10 U/L (0-40); Albumin Level 4.5 g/dL (3.5-5.0); Alkaline Phosphatase 127 U/L (39-117); Anion Gap 17 (12-20); Aspartate Amino Transferase 13 U/L (5-37); Bilirubin Total < 0.2 mg/dL (0.0-1.0); Blood Urea Nitrogen 32 mg/dL (9-16); Calcium 9.6 mg/dL (8.4-10.2); Carbon Dioxide 18 mmol/L (22-29); Chloride 110 mmol/L (96-108); Estimated Glomerular Filt Rate 51; Glucose Random 135 mg/dL (60-115); Magnesium 1.9 mg/dL (1.6-2.6); Potassium 4.5 mmol/L (3.3-5.1); Sodium 140 mmol/L (135-145); Total Protein 7.4 g/dL (6.5-8.0)
[2021-10-02 10:27] LABS: B Type Natriuretic Peptide 177 pg/mL (<100)
--- NOTE | 2021-10-02 10:27 | PC.NURSE ---
manually irrigated the mayo w saline and beverly rubio irrigated w hydrogen peroxide, pt tolerated well, no pain, no complants, mayo draining well now
[2021-10-02 10:28] VITALS: BP 135/54; PULSE 73; RESP 18; O2SAT 96
[2021-10-02 13:28] VITALS: BP 144/78; PULSE 78; RESP 18; O2SAT 98
== END 2021-10-02 13:29 | disposition home or self-care (01) ==
PROVIDERS: Physician Assistant Medical; Emergency Provider Student in an Organized Health Care Education/Training Program; PCP Internal Medicine
DX: N39.0 Urinary tract infection, site not specified (principal); Z46.6 Encounter for fitting and adjustment of urinary device; R06.02 Shortness of breath; R60.0 Localized edema; E11.22 Type 2 diabetes mellitus with diabetic chronic kidney disease; I12.9 Hypertensive chronic kidney disease with stage 1 through stage 4 chronic kidney disease, or unspecified chronic kidney disease; N18.30 Chronic kidney disease, stage 3 unspecified; E78.5 Hyperlipidemia, unspecified; Z86.73 Personal history of transient ischemic attack (TIA), and cerebral infarction without residual deficits; Z79.4 Long term (current) use of insulin; Z79.02 Long term (current) use of antithrombotics/antiplatelets
CPT/HCPCS: 36415; 71046; 80053; 81001; 83735; 83880; 85025; 87086; 93005; 93970; 99283; 99284

== ENCOUNTER 2021-10-04 11:43 | Outpatient (AMB) | payer MEDICARE, SELFPAY ==
--- NOTE | 2021-10-04 11:43 | MHC.OFFVIS ---
Intake Intake Visit Reasons: H&P (Greenlight 10/14/21) Allergies No Known Allergies [No Known Allergies*] Allergy (Verified 04/28/23 22:50) HPI HPI Comments History of Present Illness Details John is a pleasant male. He is a patient of Dr. Arce. He is seen for the following urologic conditions - urinary retention - weakness of stream Telemedicine Evaluation 15 min Consultation D[employer] Seismic Zac Video attempted Plan for GreenLight laser Questions answered Failed voiding trial Unable to place catheter easily Cystoscopy performed which showed high riding bladder neck and wire placed for 16 Cook Islander Marques catheter to be inserted over the wire. Discussed prostate procedure Will move ahead with organizing GreenLight laser prostatectomy Lower urinary tract symptoms Episode of urinary retention July 2021 Marques catheter placed in hospital for 1000 cc Here for voiding trial Does note that had weakness of stream progressive leading up to retention Current medication includes terazosin 5 mg Background diabetes with diuretic PFSH Medical History Hx: UTI (urinary tract infection) Metabolic acidosis with normal anion gap and bicarbonate losses Metabolic acidosis with increased anion gap and accumulation of organic acids Anemia Difficult Marques catheter placement H/O cataract Adenomatous colon polyp Johnson esophagus Blind right eye CAD (coronary artery disease) Iron deficiency anemia due to chronic blood loss Acute kidney injury Amputation of left great toe Hepatitis C Hyperlipidemia CVA (cerebral vascular accident) Chronic kidney disease, stage 3 Peripheral vascular disease HTN (hypertension) Diabetes High cholesterol Surgical History S/P CABG x 2 Hx of cystoscopy Parotid mass (07/28/21) History of esophagogastroduodenoscopy (EGD) Hx of colonoscopy History of ankle surgery S/P carotid endarterectomy (~08/2018) S/P CABG (coronary artery bypass graft) (~2006) Family History Other CAD (coronary artery disease) Social History Household Members: Spouse Housing: House Are you a primary livestock caretaker to a significant other at home: No Do you presently have visiting nurse or other home services: No Alcohol intake: never Comment: blind right eye Patient Tobacco Use Status: Former Tobacco user Quit Date: 1980's Tobacco use type: Cigarette e-Cigarette/Vaping Use: Never Used Substance Use Type: Marijuana Advance Directives Date on File: 04/14/21 service: No Current occupational status: retired Review of Systems Const All systems reviewed & are unremarkable except as noted in HPI and below Reports no additional complaints Resp Reports no additional complaints GI Reports no additional complaints Reports as per HPI Musc Reports no additional complaints Physical Exam Telemedicine evaluation Appropriate responses Regular breathing rate and rhythm HEENT Head: Yes normal to inspection Ears: hearing grossly normal bilaterally Eyes General: appearance normal, both eyes and all related structures Neck Neck: Yes normal visual inspection Chest Chest palpation & inspection: normal inspection of the chest Resp Effort & Inspection: normal respiratory effort and able to speak in complete sentences Assessment & Plan Assessment & Plan (1) Neurogenic bladder: Code(s): N31.9 - Neuromuscular dysfunction of bladder, unspecified (2) BPH (benign prostatic hyperplasia): Code(s): N40.0 - Benign prostatic hyperplasia without lower urinary tract symptoms Plan Risks, benefits and alternatives to therapy were discussed. These include but are not limited to infection, bleeding, damage to local organs and tissues, need for further interventions. Anesthetic risks regarding cardiac arrhythmia, blood clots, and potential mortality were discussed. The patient understands the typical recovery time and the outpatient nature of the procedure. After consideration of these risks the patient gives full informed consent and they wish to move ahead with the procedure. prostate greenlight procedure Patient Instructions: Imaging studies, laboratory and physical exam results were discussed and reviewed in detail. No major barriers to patient understanding were identified. An opportunity to ask questions regarding the treatment plan was provided. All questions were answered. The patient expressed understanding and agreement with the above treatment plan. The patient is aware they should contact our office by phone for worsening of their current condition or the appearance of new urologic symptoms. Compliance is encouraged with any medications and followup testing that is ordered. It is a privilege to participate in the urologic care of your patient. If you have any questions or concerns regarding treatment for the above conditions, or other urologic issues, please do not hesitate to contact me. The office telephone contact is [phone]. This note is constructed using voice recognition software. While every effort has been made to ensure accuracy green building materials designer errors may have been included. Yours sincerely, Dr Jon Up MD, [facility] - Urology Providers of Expert, Compassionate Care for the Genitourinary System Telehealth Telehealth Location of provider rendering services: practice address Location of patient: address on file Patient Identification confirmed using: Name, : Yes Telehealth method: voice only Patient verbally consented to treatment: Yes Patient verbally consented to billing insurance company: Yes Patient informed of any privacy concerns related to visit: Yes Coding Level of Care Code Tele Est Pt Level 3 (19945) Diagnoses Neurogenic bladder N31.9 BPH (benign prostatic hyperplasia) N40.0
== END 2021-10-04 12:35 | disposition home or self-care (01) ==
LOC: HO.HUSH 11:43
PROVIDERS: PCP Internal Medicine; Visit Provider Urology
DX: N31.9 Neuromuscular dysfunction of bladder, unspecified (principal); N40.0 Benign prostatic hyperplasia without lower urinary tract symptoms
CPT/HCPCS: 99499

== ENCOUNTER → 2021-10-04 11:43 | Outpatient (BNVA) | payer MEDICARE, SELFPAY | PROVIDERS: PCP Internal Medicine; Visit Provider Urology | DX: Z13.89 Encounter for screening for other disorder (principal) ==

== ENCOUNTER → 2021-10-07 09:03 | Outpatient (BNVA) | payer MEDICARE, SELFPAY | PROVIDERS: PCP Internal Medicine; Visit Provider Urology | DX: T83.9XXA Unspecified complication of genitourinary prosthetic device, implant and graft, initial encounter (principal) | CPT/HCPCS: 51700 ==

== ENCOUNTER 2021-10-10 08:58 | Day surgery (SDC) | payer MEDICARE, SELFPAY ==
[2021-10-04 11:00] VITALS: BMI 33.7
--- NOTE | 2021-10-07 12:00 | HO.ANESPROP2 ---
Documented by User: Kay Small NP 10/07/21 12:17 HPI - Anesthesia Eval Consult details Narrative: 76yo M for Laser Ablation Prostate w/Green Light Cardiac cleared. Pt understands increased risk per clearance note. Recommends continuing aspirin periop per cardiology. Lasix was increased x 3 days at visit for LE edema, but no anginal pains. PMFSH Active Problems Active Problems: All Active Problems (Updated 10/03/21 @ 00:02 by Background Dajesse) CVA (cerebral vascular accident) (Acute) Iron deficiency anemia due to chronic blood loss (Acute) Peripheral vascular disease (Acute) Hyperlipidemia (Acute) High cholesterol (Acute) HTN (hypertension) (Acute) Diabetes (Acute) CAD (coronary artery disease) (Acute) Chronic kidney disease, stage 3 (Acute) Blind right eye (Acute) BPH w urinary obs/LUTS (Acute) Acute urinary retention (Acute) Complication of Marques catheter (Acute) Anemia (Acute) Bilateral carotid artery stenosis (Acute) Past Medical History Medical History Acute kidney injury Adenomatous colon polyp Amputation of left great toe Anemia Johnson esophagus Blind right eye CAD (coronary artery disease) Chronic kidney disease, stage 3 CVA (cerebral vascular accident) Diabetes Difficult Marques catheter placement H/O cataract Hepatitis C High cholesterol HTN (hypertension) Hyperlipidemia Iron deficiency anemia due to chronic blood loss Metabolic acidosis with increased anion gap and accumulation of organic acids Metabolic acidosis with normal anion gap and bicarbonate losses Peripheral vascular disease Family History Family History Other CAD (coronary artery disease) Surgical History Surgical History History of ankle surgery History of esophagogastroduodenoscopy (EGD) Hx of colonoscopy Parotid mass (07/28/21) S/P CABG (coronary artery bypass graft) (~2006) S/P carotid endarterectomy (~08/2018) History of Problems with Anesthesia: No Social History Social History Household Members: Spouse Housing: House Are you a primary college and career counselor to a significant other at home: No Do you presently have visiting nurse or other home services: No Alcohol intake: never Patient Tobacco Use Status: Former Tobacco user Quit Date: Tobacco use type: Cigarette e-Cigarette/Vaping Use: Never Used Substance Use Type: Marijuana Advance Directives Date on File: 04/14/21 service: No Current occupational status: retired Living Independently Groups Allergies Allergy/AdvReac Type Severity Reaction Status Date / Time No Known Allergies Allergy Verified 09/18/21 09:52 [No Known Allergies*] Home Medications Medication Instructions Recorded Confirmed Last Taken Type amlodipine 10 mg tablet 1 tab PO DAILY 04/22/20 10/10/21 10/10/21 History atorvastatin 40 mg tablet 1 tab PO BEDTIME 04/22/20 10/04/21 08/04/21 History insulin glargine 100 unit/mL 70 unit subcut BID 04/22/20 10/04/21 08/04/21 History subcutaneous solution (Lantus U-100 Insulin) insulin lispro 100 unit/mL 30 unit subcut TID 04/22/20 10/04/21 08/04/21 History subcutaneous solution olmesartan 40 mg tablet 1 tab PO DAILY 04/22/20 10/04/21 08/04/21 History gemfibrozil 600 mg tablet 600 mg PO BID 05/19/20 10/04/21 08/04/21 History hydralazine 100 mg tablet 100 mg PO BID 05/19/20 10/10/21 10/10/21 History omeprazole 20 mg capsule,delayed 1 cap PO DAILY 05/24/20 10/10/21 10/10/21 History release insulin syringe-needle U-100 1 mL #10 ea 09/21/20 08/30/21 08/04/21 History 28 gauge x 1/2 docosahexaenoic acid (dha)-epa 1 cap PO DAILY 04/14/21 08/30/21 08/04/21 History capsule furosemide 20 mg tablet 2 tab PO DAILY 08/04/21 10/10/21 08/04/21 History metoprolol succinate 200 mg 0.5 tab PO DAILY 08/04/21 10/10/21 10/10/21 History tablet,extended release 24 hr spironolactone 25 mg tablet 1 tab PO DAILY 08/04/21 10/04/21 08/04/21 History acetaminophen 500 mg tablet 500 mg PO Q6H PRN pain 08/18/21 10/04/21 Unknown History bacitracin 500 unit/gram topical topical BID 08/18/21 08/30/21 Unknown History ointment aspirin 81 mg tablet,delayed 81 mg PO DAILY 10/04/21 10/04/21 Unknown History release (Adult Low Dose Aspirin) Exam Exam Date and Time: October 07, 2021 1200 Height,Weight and Vital Signs: Height 5 ft 10 in Weight 106.594 kg Pertinent Lab Results Pertinent Lab Results: Laboratory Tests 10/02/21 10/02/21 09:51 09:51 WBC 9.0 Hgb 10.0 L Hct 32.4 L Plt Count 297 D Sodium 140 Potassium 4.5 Chloride 110 H Carbon Dioxide 18 L BUN 32 H Creatinine 1.37 Narrative Narrative: EKG 09/2021 Vent. Rate : 075 BPM ? ? Atrial Rate : 075 BPM ?? P-R Int : 180 ms? QRS Dur : 154 ms ? ? QT Int : 408 ms ? ? ? P-R-T Axes : 047 057 046 degrees ?? QTc Int : 455 ms ? Normal sinus rhythm Right bundle branch block Abnormal ECG When compared with ECG of 04-AUG-2021 13:13, Premature ventricular complexes are no longer Present Premature atrial complexes are no longer Present Stress Test 06/2021 described in detail in cardiac clearance note. In summary, showed some mild fixed defects with no findings suggestive of ischemia. ECHO 03/2021 Conclusions: - The left ventricular systolic function is normal.? The visually estimated ejection fraction is between 60-65%. ? - Evidence suggests grade II (moderate) diastolic dysfunction. ? - There is mild calcification of the aortic valve. ? Assessment and Plan Assessment Anesthesia Assessment: Chart Reviewed Final Anesthetic Review History of Problems with Anesthesia: No Documented by User: Milind Becker MD 10/10/21 16:03 HPI - Anesthesia Eval Consult details Narrative: 76yo M for Laser Ablation Prostate w/Green Light Cardiac cleared. Pt understands increased risk per clearance note. Recommends continuing aspirin periop per cardiology. Lasix was increased x 3 days at visit for LE edema, but no anginal pains. CVA , DM [facility] Past Medical History Medical History Acute kidney injury Adenomatous colon polyp Amputation of left great toe Anemia Johnson esophagus Blind right eye CAD (coronary artery disease) Chronic kidney disease, stage 3 CVA (cerebral vascular accident) Diabetes Difficult Marques catheter placement H/O cataract Hepatitis C High cholesterol HTN (hypertension) Hyperlipidemia Iron deficiency anemia due to chronic blood loss Metabolic acidosis with increased anion gap and accumulation of organic acids Metabolic acidosis with normal anion gap and bicarbonate losses Peripheral vascular disease Family History Family History Other CAD (coronary artery disease) Family history of problems with anesthesia: No Surgical History Surgical History History of ankle surgery History of esophagogastroduodenoscopy (EGD) Hx of colonoscopy Parotid mass (07/28/21) S/P CABG (coronary artery bypass graft) (~2006) S/P carotid endarterectomy (~08/2018) Social History Social History Household Members: Spouse Housing: House Are you a primary college and career counselor to a significant other at home: No Do you presently have visiting nurse or other home services: No Alcohol intake: never Patient Tobacco Use Status: Former Tobacco user Quit Date: Tobacco use type: Cigarette e-Cigarette/Vaping Use: Never Used Substance Use Type: Marijuana Advance Directives Date on File: 04/14/21 service: No Current occupational status: retired Meds Allergies Allergy/AdvReac Type Severity Reaction Status Date / Time No Known Allergies Allergy Verified 09/18/21 09:52 [No Known Allergies*] Home Medications Medication Instructions Recorded Confirmed Last Taken Type amlodipine 10 mg tablet 1 tab PO DAILY 04/22/20 10/10/21 10/10/21 History atorvastatin 40 mg tablet 1 tab PO BEDTIME 04/22/20 10/04/21 08/04/21 History insulin glargine 100 unit/mL 70 unit subcut BID 04/22/20 10/04/21 08/04/21 History subcutaneous solution (Lantus U-100 Insulin) insulin lispro 100 unit/mL 30 unit subcut TID 04/22/20 10/04/21 08/04/21 History subcutaneous solution olmesartan 40 mg tablet 1 tab PO DAILY 04/22/20 10/04/21 08/04/21 History gemfibrozil 600 mg tablet 600 mg PO BID 05/19/20 10/04/21 08/04/21 History hydralazine 100 mg tablet 100 mg PO BID 05/19/20 10/10/21 10/10/21 History omeprazole 20 mg capsule,delayed 1 cap PO DAILY 05/24/20 10/10/21 10/10/21 History release insulin syringe-needle U-100 1 mL #10 ea 09/21/20 08/30/21 08/04/21 History 28 gauge x 1/2 docosahexaenoic acid (dha)-epa 1 cap PO DAILY 04/14/21 08/30/21 08/04/21 History capsule furosemide 20 mg tablet 2 tab PO DAILY 08/04/21 10/10/21 08/04/21 History metoprolol succinate 200 mg 0.5 tab PO DAILY 08/04/21 10/10/21 10/10/21 History tablet,extended release 24 hr spironolactone 25 mg tablet 1 tab PO DAILY 08/04/21 10/04/21 08/04/21 History acetaminophen 500 mg tablet 500 mg PO Q6H PRN pain 08/18/21 10/04/21 Unknown History bacitracin 500 unit/gram topical topical BID 08/18/21 08/30/21 Unknown History ointment aspirin 81 mg tablet,delayed 81 mg PO DAILY 10/04/21 10/04/21 Unknown History release (Adult Low Dose Aspirin) Exam Airway Mallampati Class: III TM Dist: >3cm Neck ROM: Full Loose/Missing/Broken Teeth: Yes (Chipped teeth ) Heart: S1,S2 Lungs: b/l breath sounds Assessment and Plan Assessment Anesthesia Assessment: Anesthesia Plan Discussed Final Anesthetic Review Family History of Problems with Anesthesia: No NPO: Yes ASA Class: III Final Preanesthetic Review: Meds/Allgs Chart Reviewed, Consent Obtained/Reviewed and Anes Risks/Benef Reviewed Patient Risk: High Procedure Risk: Intermediate Anesthetic Plan Anesthetic Plan: GA Disposition: Standard PACU
[2021-10-10 09:12] VITALS: BP 144/44; PULSE 71; RESP 18; TEMP 37; O2SAT 98
[2021-10-10] MEDS: Lactated Ringers 1,000 ML 21 ML IVCONT (09:54)
[2021-10-10 10:01] LABS: Glucose, Whole Blood 156 mg/dL (60-115)
--- NOTE | 2021-10-10 10:41 | P.HPSUR_ITS ---
Pre-Procedural Eval Section A Date of Service: 10/10/21 The patient is an INPATIENT: No Changes since office visit: No Cold of Flu in the past 2 weeks, No New Medical Problems, No Changes in Medication and No Patient answered all questions The History & Physical has been completed within 30 days and I have reviewed it.: No Section B Chief Complaint: Benign prostatic hyperplasia with lower urinary Details of Present Illness: relapsing urinary retention Relevant Social History: None Present Medications: see Short Stay Collaborative assessment Medical History: Significant History History of Previous Operations: Relevant previous surgery/procedure and date(s) Allergies: Allergies Allergy/AdvReac Type Severity Reaction Status Date / Time No Known Allergies Allergy Verified 09/18/21 09:52 [No Known Allergies*] Review of Systems Sugical H&P ROS: Negative: Constitution, Cardiovascular, Respiratory, Neurological, Psychiatric, Hem-Onc, Allergic/Immunologic, Gastrointestinal, G enitourinary, Musculoskeletal, Integumentary, Endocrine and Eyes/Ears/Nose/Throat Exam Surgical H&P Exam: Normal: HEENT, Normal: Heart, Normal: Lungs, Normal: Extremities, Normal: Abdomen, Normal: Skin and Normal: Neurological Plan Diagnosis/Plan: Unchanged (cysto suprapubic tube and greenlight laser prostate) I have reviewed the history and physical and performed a pertinent physical examination on my patient. No changes have occurred unless specified.
--- NOTE | 2021-10-10 11:36 | W.PM.OPN ---
Operative Note Operative Note Date of Service: 10/10/21 Narrative: PreOperative Diagnosis:? bladder neck contraction with neurogenic bladder Post Operative Diagnosis:? bladder neck contraction with neurogenic bladder Procedure:? 1. Cystoscopy 2. Suprapubic tube placement 3. laser of GreenLight opening bladder neck contraction Surgeon: Dr Jon Up Anesthesia: general Indications for procedure: recurrent urinary retention with a bladder neck contraction. Procedure: After informed consent was verified the patient was brought to the operating room and placed in a supine position.? Anesthesia was administered per protocol. The patient was placed in a modified dorsal lithotomy position and prepped and draped in a sterile fashion. A safety pause was performed confirming patient identity, procedure and antibiotics. A 22 Mont[place]erratian cystoscope was inserted per urethra. Bladder was examined in its entirety. No abnormalities seen. Air bubble was located at the dome of the bladder. A finder needle was inserted 2 fingerbreaths above the symphysis pubis on the abdomen into the bladder.? The needle was visualized in the bladder via cystoscopy. Local anesthetic was infiltrated subcutaneously around the needle introduction site. A small, 1cm horizontal incision was made.? A trocar introducer was advanced through the abdominal wall into the bladder under visualization. The obturator was removed and a 16 Fr mayo catheter placed. 7cc was used to inflate the balloon. The external portion of the trocar was removed. The Mayo catheter was capped off The laser cystoscope was placed and we could see the bladder neck contracture that had occurred on the prior TURP site. Using the GreenLight laser at 80 w incisions were made at the 05:00 o'clock and 7 o'clock position opening the contraction and then we used the laser to remove the intervening tissue the us opening up the bladder neck. At completion a 22 Mont[place]erratian 30 cc Mayo catheter was placed through the penis into the bladder without difficulty. 30 cc was placed in the balloon. A belladonna suppository was placed per rectum. Dressing was placed over the suprapubic tube which is capped The patient tolerated the procedure well and was extubated in operating room and transferred in stable condition to the recovery area. Drains: - 16 Montserratian Suprapubic Tube - 22 [place]erratian Mayo in penis
[2021-10-10 11:43] VITALS: BP 117/47; PULSE 74; RESP 16; TEMP 36.4; O2SAT 98
[2021-10-10 11:48] VITALS: BP 113/44; PULSE 69; RESP 16; O2SAT 98
[2021-10-10 11:53] VITALS: BP 126/76; PULSE 68; RESP 17; O2SAT 94
[2021-10-10 11:58] VITALS: BP 118/44; PULSE 67; RESP 18; O2SAT 95
[2021-10-10 12:13] VITALS: BP 132/48; PULSE 70; RESP 18; O2SAT 96
== END 2021-10-10 13:10 | disposition home or self-care (01) ==
PROVIDERS: PCP Internal Medicine; Visit Provider Urology
PROC: (CPT 52648; principal; 2021-10-10 10:50)
DX: N40.1 Benign prostatic hyperplasia with lower urinary tract symptoms (principal); R33.8 Other retention of urine; R39.12 Poor urinary stream; N32.0 Bladder-neck obstruction; I69.398 Other sequelae of cerebral infarction; H54.40 Blindness, one eye, unspecified eye; E11.22 Type 2 diabetes mellitus with diabetic chronic kidney disease; I12.9 Hypertensive chronic kidney disease with stage 1 through stage 4 chronic kidney disease, or unspecified chronic kidney disease; N18.30 Chronic kidney disease, stage 3 unspecified; N17.9 Acute kidney failure, unspecified; I25.10 Atherosclerotic heart disease of native coronary artery without angina pectoris; Z95.1 Presence of aortocoronary bypass graft; I73.9 Peripheral vascular disease, unspecified; D64.9 Anemia, unspecified; Z79.4 Long term (current) use of insulin; Z79.899 Other long term (current) drug therapy; Z87.891 Personal history of nicotine dependence; Z89.412 Acquired absence of left great toe
CPT/HCPCS: 52648; 51102; 82947; J1956; J2370; J3010

== ENCOUNTER → 2021-10-13 09:39 | Outpatient (BNVA) | payer MEDICARE, SELFPAY | PROVIDERS: PCP Internal Medicine; Visit Provider Urology | DX: N13.8 Other obstructive and reflux uropathy (principal) | CPT/HCPCS: 51700; 51798 ==

== ENCOUNTER 2021-10-17 12:15 | Emergency (ER) | payer MEDICARE, SELFPAY ==
--- NOTE | 2021-10-17 | ECG_ITS ---
Test Reason : weakness Blood Pressure : / mmHG Vent. Rate : 068 BPM Atrial Rate : 068 BPM P-R Int : 180 ms QRS Dur : 150 ms QT Int : 414 ms P-R-T Axes : 018 046 042 degrees QTc Int : 440 ms Normal sinus rhythm Right bundle branch block Abnormal ECG When compared with ECG of 02-OCT-2021 10:10, No significant change was found Referred By: Generic ED Physician Electronically Signed By:LD BRYAN MD
[2021-10-17 12:18] VITALS: BP 174/51; PULSE 76; RESP 22; TEMP 36.8; O2SAT 97; BMI 33.7
[2021-10-17 12:34] LABS: MANUAL DIFF FLAG NO
[2021-10-17 12:36] LABS: Basophils Percent Auto 0.4 % (0-2); Eosinophils Absolute Auto 0.1 X10*3/uL (0.0-0.4); Eosinophils Percent Auto 1.4 % (0-4); Hematocrit 32.9 % (42.0-52.0); Hemoglobin 10.2 g/dl (14.0-18.0); Imm Gran Abs Auto 0.05 X10*3/uL (0.00-0.03); Imm Gran Pct Auto 0.5 % (0.0-0.4); Lymphocytes Absolute Auto 1.2 X10*3/uL (1.2-4.9); Lymphocytes Percent Auto 11.3 % (20-40); Mean Corpuscular Hemoglobin 27.9 pg (27.0-33.0); Mean Corpuscular Volume 89.9 fL (80.0-98.0); Mean Platelet Volume 9.6 fL (9.4-12.4); Monocytes Percent Auto 9.4 % (2-11); Neutrophils Absolute Auto 7.8 x10*3/uL (2.0-8.3); Platelet Count 275 X10*3/uL (160-400); Red Blood Count 3.66 X10*6/uL (4.60-5.80); Red Cell Distribution Width 14.4 % (11.0-16.0); White Blood Count 10.2 X10*3/uL (4.8-10.8)
--- NOTE | 2021-10-17 12:47 | ED.WEAKNESS ---
HPI - Weakness General Chief complaint: Weakness Stated complaint: low blood count weak Time Seen by Provider: 10/17/21 12:40 Source: patient, family and old records reviewed Mode of arrival: ambulatory Limitations: no limitations History of Present Illness HPI Narrative: 76 yo male hx of DM, HTN, HLD, CAD, CKD, PVD, CVA, anemia, BPH s/p greenlight laser and opening of bladder neck contraction wtih suprapubic tube placement on 10/10 comes in today with c/o just feeling weak like he could pass out and general malaise - did not eat much today. no CP/SOB. MD Complaint: generalized weakness Onset (ago): minute(s) (just prior to arrival ) Duration: constant Location: generalized Migration: none Severity: mild Quality: dull Relieving factors: none Exacerbating factors: movement Context: recent illness and recent surgery Associated symptoms: loss of appetite Related Data Home Medications Medication Instructions Recorded Confirmed amlodipine 10 mg tablet 1 tab PO DAILY 04/22/20 10/10/21 atorvastatin 40 mg tablet 1 tab PO BEDTIME 04/22/20 10/04/21 insulin glargine 100 unit/mL 70 unit subcut BID 04/22/20 10/04/21 subcutaneous solution (Lantus U-100 Insulin) insulin lispro 100 unit/mL 30 unit subcut TID 04/22/20 10/04/21 subcutaneous solution olmesartan 40 mg tablet 1 tab PO DAILY 04/22/20 10/04/21 gemfibrozil 600 mg tablet 600 mg PO BID 05/19/20 10/04/21 hydralazine 100 mg tablet 100 mg PO BID 05/19/20 10/10/21 omeprazole 20 mg capsule,delayed 1 cap PO DAILY 05/24/20 10/10/21 release insulin syringe-needle U-100 1 mL #10 ea 09/21/20 08/30/21 28 gauge x 1/2 docosahexaenoic acid (dha)-epa 1 cap PO DAILY 04/14/21 08/30/21 capsule furosemide 20 mg tablet 2 tab PO DAILY 08/04/21 10/10/21 metoprolol succinate 200 mg 0.5 tab PO DAILY 08/04/21 10/10/21 tablet,extended release 24 hr spironolactone 25 mg tablet 1 tab PO DAILY 08/04/21 10/04/21 acetaminophen 500 mg tablet 500 mg PO Q6H PRN pain 08/18/21 10/04/21 bacitracin 500 unit/gram topical topical BID 08/18/21 08/30/21 ointment aspirin 81 mg tablet,delayed 81 mg PO DAILY 10/04/21 10/04/21 release (Adult Low Dose Aspirin) Previous Rx's Medication Instructions Recorded cefuroxime axetil 500 mg tablet 500 mg PO Q12H #14 tabs 08/16/21 fluconazole 150 mg tablet 150 mg PO Q3D yeast infection 2 08/17/21 (Diflucan) doses #2 tabs finasteride 5 mg tablet 5 mg PO DAILY 90 days #90 tabs 08/30/21 terazosin 5 mg capsule 5 mg PO BEDTIME 90 days #90 caps 08/30/21 oxybutynin chloride 5 mg tablet 5 mg PO Q8H PRN bladder spasms #50 10/07/21 tabs furosemide 20 mg tablet 20 mg PO DAILY 30 days #30 tabs 10/10/21 cefpodoxime 200 mg tablet 200 mg PO BID 10 days #20 tabs 10/17/21 fluconazole 200 mg tablet 400 mg PO DAILY #5 tabs 10/17/21 Allergies Allergy/AdvReac Type Severity Reaction Status Date / Time No Known Allergies Allergy Verified 09/18/21 09:52 [No Known Allergies*] Review of Systems Review of Systems: Constitutional : No Weight loss, No Fever, No Chills, pos anorexia ENT/Mouth : No sore throat, No Rhinorrhea Eyes: No Eye Pain, No Swelling Cardiovascular : no Chest Pain, no SOB, no Dyspnea on Exertion, No Orthopnea, No Edema, No Palpitations Respiratory : No Cough, No Sputum Gastrointestinal : no Nausea, No Vomiting, No Diarrhea, No abdominal Pain, No Hematochezia, No Melena Genitourinary : No Dysuria, No Urinary Frequency Musculoskeletal : No joint pain, No Myalgias, No Joint Swelling Skin : No Skin Lesions, No rash Neuro : pos Weakness, No Numbness, No Dizziness, No Headache Psych : No Anxiety/Panic, No Depression Heme/Lymph: No Bruising, No Lymphadenopathy Endocrine : No Polyuria, No Polydipsia All other systems reviewed and are negative PMFSH Past Medical History Attestation statement: The following information was validated with the patient. Source: old records reviewed Medical History Acute kidney injury Adenomatous colon polyp Amputation of left great toe Anemia Johnson esophagus Difficult [place] catheter placement H/O cataract Hepatitis C Metabolic acidosis with increased anion gap and accumulation of organic acids Metabolic acidosis with normal anion gap and bicarbonate losses Surgical History History of ankle surgery History of esophagogastroduodenoscopy (EGD) Hx of colonoscopy Parotid mass (07/28/21) S/P CABG (coronary artery bypass graft) (~2006) S/P carotid endarterectomy (~08/2018) Family History Family History Other CAD (coronary artery disease) Social History Social History Household Members: Spouse Housing: House Are you a primary palliative care coordinator to a significant other at home: No Do you presently have visiting nurse or other home services: No Alcohol intake: never Patient Tobacco Use Status: Former Tobacco user Quit Date: Tobacco use type: Cigarette e-Cigarette/Vaping Use: Never Used Use of substances other than those prescribed or required for medical reasons: Yes 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 Oriented X3. No acute distress. Eyes: Pupils equal, round and reactive to light. ENT: Pharynx normal. Neck: Normal inspection. Neck supple. CVS: Normal heart rate and rhythm. Pulses normal. Respiratory: No respiratory distress. Breath sounds normal. Abdomen: Soft and non-tender. suprapubic site is c/d/i I did put on a new dressing for the patient Skin: Skin warm and dry. Normal skin color. Normal skin turgor. Extremities: No lower extremity edema. No calf ttp Neuro: Oriented X 3. No motor deficit. No sensory deficit. Course Course Course Narrative: EKG nonischemic and trop flat from baseline + UTI no fevers, no vomiting, Cr at baseline will dose with ceftriaxone and likely give oral dose of diflucan as well no signs of sepsis in the ED and can likely be sent home on oral medications as trial hx of fungal UTI given catheter - will start on cefpodoxime and fluconazole given recent procedure - will send home with precautions MDM - Weakness MDM Narrative Medical decision making narrative: 76 yo male hx of DM, HTN, HLD, CAD, CKD, PVD, CVA, anemia, BPH s/p greenlight laser and opening of bladder neck contraction with suprapubic tube placement on 10/10 at this time will need labs, EKG, troponin - UA. Suspect possible infection given malaise and anorexia. He denies fevers. He has no CP/SOB to suggest ACS or PE. Dispo per results and findings. Lab Data Result diagrams: 10/17/21 12:28 10/17/21 12:28 Labs: Lab Results 10/17/21 10/17/21 10/17/21 Range/Units 12:28 12:28 12:28 WBC 10.2 (4.8-10.8) X10*3/uL RBC 3.66 L (4.60-5.80) X10*6/uL Hgb 10.2 L (14.0-18.0) g/dl Hct 32.9 L (42.0-52.0) % MCV 89.9 (80.0-98.0) fL MCH 27.9 (27.0-33.0) pg MCHC 31.0 (31.0-36.0) g/dl RDW 14.4 (11.0-16.0) % Plt Count 275 (160-400) X10*3/uL MPV 9.6 (9.4-12.4) fL Immature Gran % (Auto) 0.5 H (0.0-0.4) % Neut % (Auto) 77.0 H (45-73) % Lymph % (Auto) 11.3 L (20-40) % [place] % (Auto) 9.4 (2-11) % Eos % (Auto) 1.4 (0-4) % Baso % (Auto) 0.4 (0-2) % Lymph # (Auto) 1.2 (1.2-4.9) X10*3/uL [place] # (Auto) 1.0 (0.1-1.2) X10*3/uL Eos # (Auto) 0.1 (0.0-0.4) X10*3/uL Baso # (Auto) 0.0 (0.0-0.2) X10*3/uL Abs Immat Gran (auto) 0.05 H (0.00-0.03) X10*3/uL Absolute Neuts (auto) 7.8 (2.0-8.3) x10*3/uL Absolute Nucleated RBC 0.000 (0.0-0.012) X10*3/uL Nucleated RBC % (auto) 0.0 (0.0-0.2) /100WBC Sodium 140 (135-145) mmol/L Potassium 5.0 (3.3-5.1) mmol/L Chloride 107 (96-108) mmol/L Carbon Dioxide 24 (22-29) mmol/L Anion Gap 14 (12-20) BUN 23 H (9-16) mg/dL Creatinine 1.44 H (0.5-1.4) mg/dL Estim Creat Clear Calc 53.3 Estimated GFR 48 Random Glucose 100 (60-115) mg/dL Lactic Acid (0.5-2.0) mmol/L Calcium 9.8 (8.4-10.2) mg/dL Troponin I High Sens 6.3 (<3.5-35.0) ng/L Urine Color Urine Appearance Urine pH (5.0-8.0) Ur Specific [place] (1.005-1.025) Urine Protein (NEG-TRACE) MG/DL Urine Glucose (UA) (NEG) MG/DL Urine Ketones (NEG) MG/DL Urine Blood (NEG) Urine Nitrite (NEG) Ur Leukocyte Esterase (NEG) Urine RBC (0) /HPF Urine WBC (0-4) /HPF Urine WBC Clumps Ur Squamous Epith Cells /LPF Urine Bacteria /LPF 10/17/21 10/17/21 Range/Units 12:41 13:43 WBC (4.8-10.8) X10*3/uL RBC (4.60-5.80) X10*6/uL Hgb (14.0-18.0) g/dl Hct (42.0-52.0) % MCV (80.0-98.0) fL MCH (27.0-33.0) pg MCHC (31.0-36.0) g/dl RDW (11.0-16.0) % Plt Count (160-400) X10*3/uL MPV (9.4-12.4) fL Immature Gran % (Auto) (0.0-0.4) % Neut % (Auto) (45-73) % Lymph % (Auto) (20-40) % [place] % (Auto) (2-11) % Eos % (Auto) (0-4) % Baso % (Auto) (0-2) % Lymph # (Auto) (1.2-4.9) X10*3/uL [place] # (Auto) (0.1-1.2) X10*3/uL Eos # (Auto) (0.0-0.4) X10*3/uL Baso # (Auto) (0.0-0.2) X10*3/uL Abs Immat Gran (auto) (0.00-0.03) X10*3/uL Absolute Neuts (auto) (2.0-8.3) x10*3/uL Absolute Nucleated RBC (0.0-0.012) X10*3/uL Nucleated RBC % (auto) (0.0-0.2) /100WBC Sodium (135-145) mmol/L Potassium (3.3-5.1) mmol/L Chloride (96-108) mmol/L Carbon Dioxide (22-29) mmol/L Anion Gap (12-20) BUN (9-16) mg/dL Creatinine (0.5-1.4) mg/dL Estim Creat Clear Calc Estimated GFR Random Glucose (60-115) mg/dL Lactic Acid 0.7 (0.5-2.0) mmol/L Calcium (8.4-10.2) mg/dL Troponin I High Sens (<3.5-35.0) ng/L Urine Color YELLOW Urine Appearance HAZY Urine pH 5.5 (5.0-8.0) Ur Specific [place] <= 1.005 (1.005-1.025) Urine Protein TRACE (NEG-TRACE) MG/DL Urine Glucose (UA) NEG (NEG) MG/DL Urine Ketones NEG (NEG) MG/DL Urine Blood 3+ H (NEG) Urine Nitrite NEG (NEG) Ur Leukocyte Esterase 1+ H (NEG) Urine RBC 50-75 H (0) /HPF Urine WBC 30-49 H (0-4) /HPF Urine WBC Clumps NOTED Ur Squamous Epith Cells NONE /LPF Urine Bacteria TRACE /LPF ECG Data Attestation: I personally reviewed and interpreted this ECG as follows: ECG interpretation date: 10/17/21 ECG interpretation time: 12:50 Interpretation: Rate: 68 Rhythm: NSR [place]: normal Normal P waves. Normal SWAPNA. RBBB ST T wave : normal no ODALYS qTC: normal prior studies: no change from prior The study has been interpreted contemporaneously by me. Discharge Plan Discharge Clinical Impression: Acute UTI, Weakness Patient Disposition: Home, Self-Care Instructions: Urinary Tract Infection in Men (ED), Weakness (ED) Additional Instructions: return to ED for any worsening symptoms or concerns return if you develop fevers, vomiting, feel worse, or any other concerns repeat kidney function with doctor in 2 days take probiotic with antibiotics Prescriptions: New cefpodoxime 200 mg tablet 200 mg PO BID 10 Days Qty: 20 0RF Rx Instructions: must administer with a meal/food fluconazole 200 mg tablet 400 mg PO DAILY Qty: 5 0RF No Action atorvastatin 40 mg tablet 1 tab PO BEDTIME insulin glargine [Lantus U-100 Insulin] 100 unit/mL solution 70 unit subcut BID amlodipine 10 mg tablet 1 tab PO DAILY insulin lispro 100 unit/mL solution 30 unit subcut TID olmesartan 40 mg tablet 1 tab PO DAILY hydralazine 100 mg tablet 100 mg PO BID gemfibrozil 600 mg tablet 600 mg PO BID omeprazole 20 mg capsule,delayed release(DR/EC) 1 cap PO DAILY fluconazole [Diflucan] 150 mg tablet 150 mg PO Q3D Qty: 2 0RF docosahexaenoic acid-epa Capsule 1 cap PO DAILY metoprolol succinate 200 mg tablet extended release 24 hr 0.5 tab PO DAILY spironolactone 25 mg tablet 1 tab PO DAILY furosemide 20 mg tablet 2 tab PO DAILY aspirin [Adult Low Dose Aspirin] 81 mg tablet,delayed release (DR/EC) 81 mg PO DAILY furosemide 20 mg tablet 20 mg PO DAILY 30 Days Qty: 30 0RF (DME) insulin syringe-needle U-100 1 mL 28 gauge x 1/2 syringe See Rx Instructions .ROUTE .MEDSUPPLY Qty: 10 Rx Instructions: As directed acetaminophen 500 mg tablet 500 mg PO Q6H PRN (Reason: pain) bacitracin 500 unit/gram ointment topical BID cefuroxime axetil 500 mg tablet 500 mg PO Q12H Qty: 14 0RF terazosin 5 mg capsule 5 mg PO BEDTIME 90 Days Qty: 90 1RF finasteride 5 mg tablet 5 mg PO DAILY 90 Days Qty: 90 1RF oxybutynin chloride 5 mg tablet 5 mg PO Q8H PRN (Reason: bladder spasms) Qty: 50 0RF Referrals: Elías Arce III, MD [Primary Care Provider] - 2 days (kidney function testing)
[2021-10-17 12:51] LABS: Appearance Urine HAZY; Color Urine YELLOW; Glucose Urine UA NEG (NEG); Leukocyte Esterase Urine 1+ (NEG); Nitrite Urine NEG (NEG); PH 5.5 (5.0-8.0); Specific Gravity - Urine <= 1.005 (1.005-1.025); UACC Culture Trigger YES; Urine Blood 3+ (NEG); Urine Ketones NEG (NEG); Urine Protein TRACE MG/DL (NEG-TRACE)
[2021-10-17 12:56] LABS: Anion Gap 14 (12-20); Blood Urea Nitrogen 23 mg/dL (9-16); Calcium 9.8 mg/dL (8.4-10.2); Carbon Dioxide 24 mmol/L (22-29); Chloride 107 mmol/L (96-108); Creatinine Clr Calc Pharmacy 53.3; Estimated Glomerular Filt Rate 48; Glucose Random 100 mg/dL (60-115); Sodium 140 mmol/L (135-145)
[2021-10-17 13:03] LABS: RBC Urine 50-75 /HPF (0); UACC CULT YES; WBC Urine 30-49 /HPF (0-4)
[2021-10-17 13:04] LABS: Bacteria Urine TRACE /LPF; WBC Clumps Urine NOTED
[2021-10-17 13:07] VITALS: BP 146/52; PULSE 70
[2021-10-17 13:08] VITALS: BP 159/55; PULSE 69
[2021-10-17 13:10] VITALS: BP 149/52; PULSE 79
[2021-10-17 13:12] LABS: Troponin-I High Sensitivity 6.3 ng/L (<3.5-35.0)
[2021-10-17 13:17] VITALS: BP 149/52; PULSE 79; RESP 18; TEMP 36.8; O2SAT 98
[2021-10-17] MEDS: cefTRIAXone sodium 1 GM in 0.9 % Sodium Chloride 50 ML IV (13:50)
[2021-10-17 14:00] LABS: Lactic Acid 0.7 mmol/L (0.5-2.0)
== END 2021-10-17 14:52 | disposition home or self-care (01) ==
PROVIDERS: Emergency Provider Emergency Medicine; PCP Internal Medicine
DX: N39.0 Urinary tract infection, site not specified (principal); R53.1 Weakness; Z87.891 Personal history of nicotine dependence; Z79.899 Other long term (current) drug therapy
CPT/HCPCS: 36415; 80048; 81001; 83605; 84484; 85025; 87040; 87086; 87088; 93005; 96365; 99284; J0696

== ENCOUNTER → 2021-11-08 10:23 | Outpatient (BNVA) | payer MEDICARE, SELFPAY | PROVIDERS: PCP Internal Medicine; Visit Provider Urology | DX: R33.9 Retention of urine, unspecified (principal); I63.9 Cerebral infarction, unspecified | CPT/HCPCS: 51705; 99212 ==

== ENCOUNTER → 2021-12-06 10:22 | Outpatient (BNVA) | payer MEDICARE, SELFPAY | PROVIDERS: PCP Internal Medicine; Visit Provider Urology | DX: R33.9 Retention of urine, unspecified (principal) | CPT/HCPCS: 51705 ==

== ENCOUNTER → 2022-01-04 12:39 | Outpatient (BNVA) | payer MEDICARE, SELFPAY | PROVIDERS: PCP Internal Medicine; Visit Provider Urology | DX: Z43.5 Encounter for attention to cystostomy (principal) | CPT/HCPCS: 99212 ==

== ENCOUNTER → 2022-01-18 12:55 | Outpatient (BNVA) | payer MEDICARE, SELFPAY | PROVIDERS: PCP Internal Medicine; Visit Provider Urology | DX: N40.1 Benign prostatic hyperplasia with lower urinary tract symptoms (principal); N13.8 Other obstructive and reflux uropathy | CPT/HCPCS: 51798 ==

== ENCOUNTER 2022-03-02 10:57 | Outpatient (REF) | payer MEDICARE, SELFPAY ==
--- NOTE | ~2022-03-02 | US_ITS ---
EXAMINATION: US EXTRACRANIAL CAROTID DUPLEX, BILATERAL CLINICAL INFORMATION: Right ICA occlusion. Hypertension, diabetes, hyperlipidemia. COMPARISON: 07/13/2021 TECHNIQUE: Real-time ultrasound and Doppler techniques (integrating B-mode 2-D vascular images, Doppler spectral analysis and color-flow Doppler imaging) were utilized to interrogate the extracranial carotid arteries, the vertebral arteries and proximal subclavian arteries bilaterally. The degree of stenosis is determined by criteria similar to NASCET. FINDINGS: Right Side: 1. There is severe atherosclerotic plaque seen in the bifurcation/proximal ICA region. 2. The common carotid artery PSV proximally is 68 cm/s and distally 62 cm/s. 3. The cervical internal carotid artery is occluded. 4. The proximal external carotid artery PSV is 449 cm/s. 5. The vertebral artery shows antegrade flow. 6. The subclavian artery velocity is mildly elevated. Left Side: 1. There is mild atherosclerotic plaque seen in the bifurcation/proximal ICA region. 2. The common carotid artery PSV proximally is 111 cm/s and distally 106 cm/s. 3. The proximal internal carotid artery velocities are 292 cm/s systolic and 85 cm/s diastolic. 4. The proximal external carotid artery PSV is 284 cm/s. 5. The vertebral artery shows antegrade flow. 6. The subclavian artery velocity is normal. US/US carotid duplex BI IMPRESSION: 1. RIGHT: Occluded right cervical internal carotid artery. Likely hemodynamically significant stenosis of the right subclavian artery. 2. LEFT: Moderate, hemodynamically significant stenosis of the proximal left internal carotid artery corresponding to a 50-79% stenosis by velocity criteria. 3. Change in occluded right internal carotid artery. Progression of disease from mild 0-49% to moderate 50-79% in the proximal left internal carotid artery.
== END 2022-03-02 10:58 | disposition home or self-care (01) ==
LOC: HO.US 10:57
PROVIDERS: Visit Provider Surgery Vascular Surgery
DX: I65.23 Occlusion and stenosis of bilateral carotid arteries (principal)
CPT/HCPCS: 93880

== ENCOUNTER → 2022-03-07 12:42 | Outpatient (BNVA) | payer MEDICARE, SELFPAY | PROVIDERS: PCP Internal Medicine; Visit Provider Surgery Vascular Surgery | DX: I65.23 Occlusion and stenosis of bilateral carotid arteries (principal) | CPT/HCPCS: 99212 ==

== ENCOUNTER 2022-03-13 10:10 | Outpatient (REF) | payer MEDICARE, SELFPAY ==
[2022-03-13 10:31] LABS: MANUAL DIFF FLAG NO
[2022-03-13 10:53] LABS: Basophils Absolute Auto 0.1 X10*3/uL (0.0-0.2); Basophils Percent Auto 0.7 % (0-2); Eosinophils Absolute Auto 0.2 X10*3/uL (0.0-0.4); Hematocrit 30.1 % (42.0-52.0); Hemoglobin 9.1 g/dl (14.0-18.0); Imm Gran Abs Auto 0.04 X10*3/uL (0.00-0.03); Imm Gran Pct Auto 0.4 % (0.0-0.4); Lymphocytes Absolute Auto 1.1 X10*3/uL (1.2-4.9); Lymphocytes Percent Auto 12.7 % (20-40); Mean Corpuscular HGB Conc 30.2 g/dl (31.0-36.0); Mean Corpuscular Hemoglobin 30.4 pg (27.0-33.0); Mean Corpuscular Volume 100.7 fL (80.0-98.0); Mean Platelet Volume 10.1 fL (9.4-12.4); Monocytes Absolute Auto 0.7 X10*3/uL (0.1-1.2); Monocytes Percent Auto 8.1 % (2-11); Neutrophils Absolute Auto 6.8 x10*3/uL (2.0-8.3); Neutrophils Percent Auto 76.1 % (45-73); Platelet Count 324 X10*3/uL (160-400); Red Blood Count 2.99 X10*6/uL (4.60-5.80); White Blood Count 8.9 X10*3/uL (4.8-10.8)
[2022-03-13 11:29] LABS: Alanine Aminotransferase 10 U/L (0-40); Albumin Level 4.6 g/dL (3.5-5.0); Alkaline Phosphatase 129 U/L (39-117); Anion Gap 18 (12-20); Aspartate Amino Transferase 15 U/L (5-37); Bilirubin Total 0.3 mg/dL (0.0-1.0); Blood Urea Nitrogen 34 mg/dL (9-16); Calcium 9.7 mg/dL (8.4-10.2); Carbon Dioxide 19 mmol/L (22-29); Chloride 109 mmol/L (96-108); Estimated Glomerular Filt Rate 41; Glucose Random 162 mg/dL (60-115); Iron 53 mcg/dL (45-160); Percent Iron Saturation 12 % (15-50); Sodium 141 mmol/L (135-145); Total Iron Binding Capacity 446 mcg/dL (228-428); Total Protein 7.4 g/dL (6.5-8.0); Unsaturated Iron Binding 393 ug/dL
[2022-03-13 11:38] LABS: Ferritin 33 ng/mL (20-250)
== END 2022-03-13 10:11 | disposition home or self-care (01) ==
LOC: HO.LAB 10:10
PROVIDERS: PCP Internal Medicine; Visit Provider Internal Medicine Gastroenterology
DX: D50.0 Iron deficiency anemia secondary to blood loss (chronic) (principal); K75.81 Nonalcoholic steatohepatitis (NASH)
CPT/HCPCS: 36415; 80053; 82728; 83540; 85025

== ENCOUNTER → 2022-03-20 10:23 | Outpatient (BNVA) | payer MEDICARE, SELFPAY | PROVIDERS: PCP Internal Medicine; Referring Provider Internal Medicine; Visit Provider Internal Medicine Gastroenterology | DX: D50.9 Iron deficiency anemia, unspecified (principal) | CPT/HCPCS: 99212 ==

== ENCOUNTER 2022-04-05 10:00 | Outpatient (REF) | payer MEDICARE, SELFPAY | END 2022-04-05 10:01 | disposition home or self-care (01) | LOC: HO.MDS 10:00 | PROVIDERS: Visit Provider Internal Medicine Gastroenterology | DX: D50.9 Iron deficiency anemia, unspecified (principal) | CPT/HCPCS: 96365; J1756 ==

== ENCOUNTER 2022-04-12 12:37 | Outpatient (REF) | payer MEDICARE, SELFPAY | END 2022-04-12 12:38 | disposition home or self-care (01) | LOC: HO.MDS 12:37 | PROVIDERS: Visit Provider Internal Medicine Gastroenterology | DX: D50.9 Iron deficiency anemia, unspecified (principal) | CPT/HCPCS: 96365; J1756 ==

== ENCOUNTER 2022-04-19 12:36 | Outpatient (REF) | payer MEDICARE, SELFPAY | END 2022-04-19 12:37 | disposition home or self-care (01) | LOC: HO.MDS 12:36 | PROVIDERS: Visit Provider Internal Medicine Gastroenterology | DX: D50.9 Iron deficiency anemia, unspecified (principal) | CPT/HCPCS: 96365; J1756 ==

== ENCOUNTER 2022-05-16 12:21 | Emergency (ER) | payer MEDICARE, SELFPAY ==
[2022-05-16 12:41] VITALS: BP 176/73; PULSE 78; RESP 16; TEMP 36.8; O2SAT 97; BMI 33.7
--- NOTE | 2022-05-16 12:43 | ECG_ITS ---
Test Reason : fatigue Blood Pressure : / mmHG Vent. Rate : 073 BPM Atrial Rate : 073 BPM P-R Int : 180 ms QRS Dur : 156 ms QT Int : 414 ms P-R-T Axes : 051 057 043 degrees QTc Int : 456 ms Normal sinus rhythm Right bundle branch block Abnormal ECG When compared with ECG of 17-OCT-2021 12:18, No significant change was found Referred By: Edwardo Damon Electronically Signed By:LD BRYAN MD
--- NOTE | 2022-05-16 12:47 | ED.GENADULT ---
HPI - General Adult General Chief complaint: Weakness <LIZBETH Beebe - Last Filed: 05/16/22 19:09> Stated complaint: Dizzy/Low blood count? <LIZBETH Beebe - Last Filed: 05/16/22 19:09> Time Seen by Provider: 05/16/22 14:42 <LIZBETH Beebe - Last Filed: 05/16/22 19:09> Source: patient and family (patient's ) <LIZBETH Crespo - Last Filed: 05/16/22 14:58> Mode of arrival: ambulatory <LIZBETH Crespo - Last Filed: 05/16/22 14:58> Limitations: no limitations <LIZBETH Crespo - Last Filed: 05/16/22 14:58> History of Present Illness HPI narrative: Patient is a 77 year old assigned male at with a history of DM, CAD, and CKD presenting to the emergency department today with after an episode of weakness this morning. Patient states that he woke up feeling weak and thought it was his sugar being too low. Patient states that he drank and ate things and felt better, then took 30 units of his insulin. Patient states that he still feels fine now. Patient denies any dizziness, lightheadedness, abdominal pain, nausea, vomiting, fever, chills, blurry vision, double vision, loss of vision, chest pain, difficulty breathing, shortness of breath, back pain, night sweats, pain with urination, increased urinary frequency, increased urinary urgency, blood in his urine or stool, syncope or a near syncopal episode, recent trauma or falls, bowel incontinence, bladder incontinence, bowel retention, bladder retention, or any other complaints at this time. <LIZBETH Crespo - Last Filed: 05/16/22 14:58> Onset (ago): hour(s) <LIZBETH Crespo - Last Filed: 05/16/22 14:58> Severity: mild <LIZBETH Crespo Last Filed: 05/16/22 14:58> Severity scale (1-10): 2 <LIZBETH Crespo Last Filed: 05/16/22 14:58> Relieving factors: eating <LIZBETH rCespo - Last Filed: 05/16/22 14:58> Exacerbating factors: none <LIZBETH Crespo - Last Filed: 05/16/22 14:58> Associated symptoms: denies other symptoms <LIZBETH Crespo - Last Filed: 05/16/22 14:58> Treatments prior to arrival: none <LIZBETH Crespo - Last Filed: 05/16/22 14:58> Related Data Home medications: Home Medications Medication Instructions Recorded Confirmed amlodipine 10 mg tablet 1 tab PO DAILY 04/22/20 10/10/21 atorvastatin 40 mg tablet 1 tab PO BEDTIME 04/22/20 10/04/21 insulin glargine 100 unit/mL 70 unit subcut BID 04/22/20 10/04/21 subcutaneous solution (Lantus U-100 Insulin) insulin lispro 100 unit/mL 30 unit subcut TID 04/22/20 10/04/21 subcutaneous solution olmesartan 40 mg tablet 1 tab PO DAILY 04/22/20 10/04/21 gemfibrozil 600 mg tablet 600 mg PO BID 05/19/20 10/04/21 hydralazine 100 mg tablet 100 mg PO BID 05/19/20 10/10/21 omeprazole 20 mg capsule,delayed 1 cap PO DAILY 05/24/20 10/10/21 release insulin syringe-needle U-100 1 mL #10 ea 09/21/20 08/30/21 28 gauge x 1/2 docosahexaenoic acid (dha)-epa 1 cap PO DAILY 04/14/21 08/30/21 capsule furosemide 20 mg tablet 2 tab PO DAILY 08/04/21 10/10/21 metoprolol succinate 200 mg 0.5 tab PO DAILY 08/04/21 10/10/21 tablet,extended release 24 hr spironolactone 25 mg tablet 1 tab PO DAILY 08/04/21 10/04/21 acetaminophen 500 mg tablet 500 mg PO Q6H PRN pain 08/18/21 10/04/21 bacitracin 500 unit/gram topical topical BID 08/18/21 08/30/21 ointment aspirin 81 mg tablet,delayed 81 mg PO DAILY 10/04/21 10/04/21 release (Adult Low Dose Aspirin) ascorbic acid (vitamin C) 500 mg 0 mg PO 03/07/22 tablet gabapentin 300 mg capsule 300 mg PO TID 03/07/22 Previous Rx's Medication Instructions Recorded cefuroxime axetil 500 mg tablet 500 mg PO Q12H #14 tabs 08/16/21 fluconazole 150 mg tablet 150 mg PO Q3D yeast infection 2 08/17/21 (Diflucan) doses #2 tabs furosemide 20 mg tablet 20 mg PO DAILY 30 days #30 tabs 10/10/21 cefpodoxime 200 mg tablet 200 mg PO BID 10 days #20 tabs 10/17/21 fluconazole 200 mg tablet 400 mg PO DAILY #5 tabs 10/17/21 methenamine hippurate 1 gram tablet 1 g PO DAILY 90 days #90 tabs 11/08/21 finasteride 5 mg tablet 5 mg PO DAILY 90 days #90 tabs 03/07/22 ascorbic acid (vitamin C) 1,000 mg 1 g PO DAILY 90 days #90 tabs 05/08/22 tablet <LIZBETH Beebe - Last Filed: 05/16/22 19:09> Allergies/adverse reactions: Allergies Allergy/AdvReac Type Severity Reaction Status Date / Time No Known Allergies Allergy Verified 03/20/22 10:32 [No Known Allergies*] <LIZBETH Beebe Last Filed: 05/16/22 19:09> Review of Systems Constitutional: Constitutional: Reports no additional constitutional complaints, Denies chills, Denies fever(s) and Denies night sweats <LIZBETH Crespo Last Filed: 05/16/22 14:58> Eyes: Eyes: Reports no additional eye complaints, Denies blurry vision, Denies change in vision, Denies diplopia, Denies eye discharge, Denies loss of vision and Denies eye pain <LIZBETH Crespo Last Filed: 05/16/22 14:58> ENT: Denies dizziness <LIZBETH Crespo Last Filed: 05/16/22 14:58> Cardiovascular: Cardiovascular: Reports no additional cardiovascular complaints, Denies chest pain, Denies lightheadedness, Denies Loss of Consciousness and Denies dyspnea <LIZBETH Crespo Last Filed: 05/16/22 14:58> Respiratory: Respiratory: Reports no additional respiratory complaints and Denies dyspnea <LIZBETH Crespo Last Filed: 05/16/22 14:58> Gastrointestinal: Gastrointestinal: Reports no additional gastrointestinal complaints, Denies abdominal pain, Denies melena, Denies hematochezia, Denies change in bowel habits and Denies change in stool character <LIZBETH Crespo - Last Filed: 05/16/22 14:58> Genitourinary: Genitourinary: Reports no additional male genitourinary complaints, Denies hematuria, Denies oliguria, Denies difficulty urinating, Denies dysuria, Denies urinary frequency, Denies urinary hesitancy, Denies urinary incontinence and Denies urinary urgency <LIZBETH Crespo - Last Filed: 05/16/22 14:58> Musculoskeletal: Musculoskeletal: Reports no additional musculoskeletal complaints, Denies numbness and Denies tingling <LIZBETH Crespo - Last Filed: 05/16/22 14:58> Neurologic: Denies dizziness, Denies loss of vision, Denies numbness and Denies tingling <LIZBETH Crespo - Last Filed: 05/16/22 14:58> Psychiatric: Psychiatric: Reports no additional psychiatric complaints <LIZBETH Crespo - Last Filed: 05/16/22 14:58> Endocrine: Endocrine: Reports no additional endocrine complaints <LIZBETH Crespo - Last Filed: 05/16/22 14:58> Hematologic/Lymphatic: Hematologic/Lymphatic: Reports no additional hematologic/lymphatic complaints <LIZBETH Crespo - Last Filed: 05/16/22 14:58> Allergic/Immunologic: Allergic/Immunologic: Reports no additional allergic/immunologic complaints <LIZBETH Crespo - Last Filed: 05/16/22 14:58> [facility] Past Medical History Attestation statement: The following information was validated with the patient. <LIZBETH Crespo - Last Filed: 05/16/22 14:58> Source: old records reviewed, obtained from family (patient's ) and nursing notes reviewed <LIZBETH Crespo - Last Filed: 05/16/22 14:58> Medical History: Medical History Acute kidney injury Adenomatous colon polyp Amputation of left great toe Anemia Johnson esophagus Blind right eye CAD (coronary artery disease) Chronic kidney disease, stage 3 CVA (cerebral vascular accident) Diabetes Difficult Marques catheter placement H/O cataract Hepatitis C High cholesterol HTN (hypertension) Hyperlipidemia Iron deficiency anemia due to chronic blood loss Metabolic acidosis with increased anion gap and accumulation of organic acids Metabolic acidosis with normal anion gap and bicarbonate losses Peripheral vascular disease <LIZBETH Beebe - Last Filed: 05/16/22 19:09> Surgical History: Surgical History History of ankle surgery History of esophagogastroduodenoscopy (EGD) Hx of colonoscopy Hx of cystoscopy Parotid mass (07/28/21) S/P CABG (coronary artery bypass graft) (~2006) S/P carotid endarterectomy (~08/2018) <LIZBETH Beebe - Last Filed: 05/16/22 19:09> Family History Family History: Family History Other CAD (coronary artery disease) <LIZBETH Beebe - Last Filed: 05/16/22 19:09> Social History Social History: Social History Household Members: Spouse Housing: House Are you a primary pediatric critical care nurse to a significant other at home: No Do you presently have visiting nurse or other home services: No Alcohol intake: never Patient Tobacco Use Status: Former Tobacco user Quit Date: Tobacco use type: Cigarette e-Cigarette/Vaping Use: Never Used Substance Use Type: Marijuana Advance Directives: Yes Advance Directives on File: Yes Advance Directives Date on File: 04/14/21 service: No Current occupational status: retired <LIZBETH Beebe - Last Filed: 05/16/22 19:09> Physical Exam ED Vital Signs: Vital Signs - 24 hr 05/16/22 12:41 Temperature 98.2 F Pulse Rate 78 Respiratory Rate 16 Blood Pressure 176/73 H Pulse Oximetry 97 Oxygen Delivery Method Room Air BMI result Body Mass Index 33.7 <LIZBETH Beebe - Last Filed: 05/16/22 19:09> Vital Signs - 24 hr 05/16/22 12:41 Temperature 98.2 F Pulse Rate 78 Respiratory Rate 16 Blood Pressure 176/73 H Pulse Oximetry 97 Oxygen Delivery Method Room Air BMI result Body Mass Index 33.7 <Misa Venita [place] - Last Filed: 05/16/22 14:58> Const General: cooperative, no acute distress, alert and awake <Misa Nathan [place] - Last Filed: 05/16/22 14:58> Nutritional Appearance: well nourished <Misa Galankathya [place] - Last Filed: 05/16/22 14:58> Orientation/consciousness: patient oriented x3 <Misa Nathan [place] - Last Filed: 05/16/22 14:58> Limitations: no limitations <Misalinsey Galankathya [place] - Last Filed: 05/16/22 14:58> HENMT Head: Yes normal to inspection and Yes atraumatic <Misa Venita [place] - Last Filed: 05/16/22 14:58> Ears: hearing grossly normal bilaterally and external ears normal <Misa Galankathya [place] - Last Filed: 05/16/22 14:58> General nose exam: Normal external nose present, no nasal discharge noted and no epistaxis <Misa Nathan [place] - Last Filed: 05/16/22 14:58> Face and sinus: Yes normal facial exam, No abrasion and No laceration <Misalinsye Galankathya [place] - Last Filed: 05/16/22 14:58> Mouth: Normal oral and palatal mucosa present, no drooling and no muffled voice <Misalinsey Galankathya [place] - Last Filed: 05/16/22 14:58> Eyes General: appearance normal, both eyes and all related structures <Misa Nathan [place] - Last Filed: 05/16/22 14:58> Periorbital: periorbital findings normal <Misa Nathan [place] - Last Filed: 05/16/22 14:58> Eyelids: Yes eyelids normal <Misa Nathan [place] - Last Filed: 05/16/22 14:58> Conjunctivae: conjunctivae normal <Misa Nathan [place] - Last Filed: 05/16/22 14:58> Pupils: Equal, round and reactive pupils present <Misa Nathan [place] - Last Filed: 05/16/22 14:58> EOM: EOMs intact bilaterally <Misa Nathan [place] - Last Filed: 05/16/22 14:58> Neck Neck: Yes normal visual inspection, Yes full ROM and Yes no lymphadenopathy <Misa Nathan [place] - Last Filed: 05/16/22 14:58> Chest Chest palpation & inspection: normal inspection of the chest <Misa Nathan [place] - Last Filed: 05/16/22 14:58> Resp Effort & Inspection: normal respiratory effort and able to speak in complete sentences <Misa Nathan [place] - Last Filed: 05/16/22 14:58> Auscultation: clear to auscultation bilaterally <Misa Nathan [place] - Last Filed: 05/16/22 14:58> Cardio Rate: regular rate <Misa Nathan [place] - Last Filed: 05/16/22 14:58> Rhythm: regular rhythm <Misa Nathan [place] - Last Filed: 05/16/22 14:58> GI Inspection: Yes normal to inspection <Mias Nathan [facility] Last Filed: 05/16/22 14:58> Palpation (GI): Soft to palpation, not firm, nontender, no guarding and not rigid <Misa Nathan [place] - Last Filed: 05/16/22 14:58> Neuro General: patient oriented x3 and moves all extremities <Misa Nathan [place] - Last Filed: 05/16/22 14:58> Cranial nerves: Yes Equal, round and reactive pupils present <Misa Nathan [place] - Last Filed: 05/16/22 14:58> Cognition (Neuro): normal cognition <Misa Nathan [place] - Last Filed: 05/16/22 14:58> Motor exam (neuro): 5/5 motor strength present throughout <Misa Nathan [place] - Last Filed: 05/16/22 14:58> Sensory Exam: Normal double simultaneous stimulation for sensation <Misa Nathan [place] - Last Filed: 05/16/22 14:58> Coordination: [id number] test normal <Misa Nathan [place] - Last Filed: 05/16/22 14:58> Extrem General: Yes normal to inspection, Yes full ROM and Yes capillary refill normal <Misa Nathan [place] - Last Filed: 05/16/22 14:58> Psych Appearance: grossly normal <Misa Nathan [place] - Last Filed: 05/16/22 14:58> Mental Status: mental status grossly normal <LIZBETH Crespo - Last Filed: 05/16/22 14:58> Affect: normal affect <LIZBETH Crespo Last Filed: 05/16/22 14:58> Attitude: cooperative <LIZBETH Crespo - Last Filed: 05/16/22 14:58> Thought process: Normal thought process present <LIZBETH Crespo Last Filed: 05/16/22 14:58> Thought content: Normal thought content present <LIZBETH Crespo - Last Filed: 05/16/22 14:58> Insight: Good insight present (Psych) <LIZBETH Crespo Last Filed: 05/16/22 14:58> Course Course Course Narrative: RME: 77 yold male presents to the ED for fatigue. patient came to the ED to be evalauted due to receving blood transfussions when he felt the same last year. patient states no shortness of breath or chest pain. Negative for any neuro deficits. 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 EKG, labs ordered. 1:52pm: CBC normal. Will order head CT although no neuro symptoms due age and pmh of CVA. Chest CT ordered to rule out infection ( Pneumonia?) to explain fatigue/generalized weakenss <LIZBETH Beebe - Last Filed: 05/16/22 19:09> Medical Decision Making Medical Decision Making MDM Narrative: Patient is a 77 year old assigned male at with a history of DM, CAD, and CKD presenting to the emergency department today after an episode of lightheadedness that resolved. Patient's physical exam was unremarkable. Patient's blood work was unremarkable. Patient's EKG was unremarkable. I explained my physical exam findings as well as all test results to the patient and the patient's . I answered all questions asked by the patient and the patient's . I stressed the importance of the patient taking his medication as prescribed. I stressed the importance of the patient following up with his primary care provider. I stressed the importance of the patient returning to the emergency department immediately if his symptoms were to worsen or if he were to develop any dizziness, shortness of breath, difficulty breathing, chest pain, blurry vision, loss of vision, nausea, vomiting, abdominal pain, fever, chills, back pain, or any other complaints. Patient and the patient's verbalized agreement and understanding with this treatment plan and discharge. <LIZBETH Crespo - Last Filed: 05/16/22 14:58> Differential Diagnosis Differential Diagnoses: The differential diagnosis associated with the presentation includes <LIZBETH Crespo - Last Filed: 05/16/22 14:58> hypoglycemic event, near syncope <LIZBETH Crespo - Last Filed: 05/16/22 14:58> Lab Data MDM Lab Attestation statement: I reviewed the patient's lab results. <LIZBETH Crespo - Last Filed: 05/16/22 14:58> Result Diagrams: 05/16/22 13:10 05/16/22 13:10 <LIZBETH Beebe - Last Filed: 05/16/22 19:09> Labs: Lab Results 05/16/22 05/16/22 05/16/22 Range/Units 12:51 13:10 13:10 WBC 9.8 (4.8-10.8) X10*3/uL RBC 3.97 L D (4.60-5.80) X10*6/uL Hgb 11.9 L D (14.0-18.0) g/dl Hct 37.5 L D (42.0-52.0) % MCV 94.5 (80.0-98.0) fL MCH 30.0 (27.0-33.0) pg MCHC 31.7 (31.0-36.0) g/dl RDW 13.1 (11.0-16.0) % Plt Count 315 (160-400) X10*3/uL MPV 9.6 (9.4-12.4) fL Immature Gran % (Auto) 0.3 (0.0-0.4) % Neut % (Auto) 75.6 H (45-73) % Lymph % (Auto) 11.0 L (20-40) % [place] % (Auto) 10.7 (2-11) % Eos % (Auto) 1.8 (0-4) % Baso % (Auto) 0.6 (0-2) % Lymph # (Auto) 1.1 L (1.2-4.9) X10*3/uL [place] # (Auto) 1.1 (0.1-1.2) X10*3/uL Eos # (Auto) 0.2 (0.0-0.4) X10*3/uL Baso # (Auto) 0.1 (0.0-0.2) X10*3/uL Abs Immat Gran (auto) 0.03 (0.00-0.03) X10*3/uL Absolute Neuts (auto) 7.4 (2.0-8.3) x10*3/uL Absolute Nucleated RBC 0.000 (0.0-0.012) X10*3/uL Nucleated RBC % (auto) 0.0 (0.0-0.2) /100WBC PT 11.7 (10.0-13.1) SEC INR 1.0 (0.9-1.1) APTT 37.2 H (26.0-36.4) SEC Sodium (135-145) mmol/L Potassium (3.3-5.1) mmol/L Chloride (96-108) mmol/L Carbon Dioxide (22-29) mmol/L Anion Gap (12-20) BUN (9-16) mg/dL Creatinine (0.5-1.4) mg/dL Estim Creat Clear Calc Estimated GFR POC Glucose 119 H (60-115) mg/dL Random Glucose (60-115) mg/dL Calcium (8.4-10.2) mg/dL Total Bilirubin (0.0-1.0) mg/dL AST (5-37) U/L ALT (0-40) U/L Alkaline Phosphatase (39-117) U/L Troponin I High Sens (<3.5-35.0) ng/L Total Protein (6.5-8.0) g/dL Albumin (3.5-5.0) g/dL Influenza Type A (PCR) (Negative) Influenza Type B (PCR) (Negative) RSV RNA Qual (PCR) (Negative) SARS-CoV-2 RNA (RT-PCR) (Negative) Blood Type Antibody Screen 05/16/22 05/16/22 05/16/22 Range/Units 13:10 13:10 13:10 WBC (4.8-10.8) X10*3/uL RBC (4.60-5.80) X10*6/uL Hgb (14.0-18.0) g/dl Hct (42.0-52.0) % MCV (80.0-98.0) fL MCH (27.0-33.0) pg MCHC (31.0-36.0) g/dl RDW (11.0-16.0) % Plt Count (160-400) X10*3/uL MPV (9.4-12.4) fL Immature Gran % (Auto) (0.0-0.4) % Neut % (Auto) (45-73) % Lymph % (Auto) (20-40) % [place] % (Auto) (2-11) % Eos % (Auto) (0-4) % Baso % (Auto) (0-2) % Lymph # (Auto) (1.2-4.9) X10*3/uL [place] # (Auto) (0.1-1.2) X10*3/uL Eos # (Auto) (0.0-0.4) X10*3/uL Baso # (Auto) (0.0-0.2) X10*3/uL Abs Immat Gran (auto) (0.00-0.03) X10*3/uL Absolute Neuts (auto) (2.0-8.3) x10*3/uL Absolute Nucleated RBC (0.0-0.012) X10*3/uL Nucleated RBC % (auto) (0.0-0.2) /100WBC PT (10.0-13.1) SEC INR (0.9-1.1) APTT (26.0-36.4) SEC Sodium 143 (135-145) mmol/L Potassium 4.3 (3.3-5.1) mmol/L Chloride 109 H (96-108) mmol/L Carbon Dioxide 25 (22-29) mmol/L Anion Gap 13 (12-20) BUN 24 H (9-16) mg/dL Creatinine 1.31 (0.5-1.4) mg/dL Estim Creat Clear Calc 57.7 Estimated GFR 53 POC Glucose (60-115) mg/dL Random Glucose 102 (60-115) mg/dL Calcium 9.9 (8.4-10.2) mg/dL Total Bilirubin 0.2 (0.0-1.0) mg/dL AST 17 (5-37) U/L ALT 11 (0-40) U/L Alkaline Phosphatase 142 H (39-117) U/L Troponin I High Sens 8.7 (<3.5-35.0) ng/L Total Protein 7.8 (6.5-8.0) g/dL Albumin 4.9 (3.5-5.0) g/dL Influenza Type A (PCR) NEGATIVE (Negative) Influenza Type B (PCR) NEGATIVE (Negative) RSV RNA Qual (PCR) NEGATIVE (Negative) SARS-CoV-2 RNA (RT-PCR) NEGATIVE (Negative) Blood Type Antibody Screen 05/16/22 Range/Units 13:10 WBC (4.8-10.8) X10*3/uL RBC (4.60-5.80) X10*6/uL Hgb (14.0-18.0) g/dl Hct (42.0-52.0) % MCV (80.0-98.0) fL MCH (27.0-33.0) pg MCHC (31.0-36.0) g/dl RDW (11.0-16.0) % Plt Count (160-400) X10*3/uL MPV (9.4-12.4) fL Immature Gran % (Auto) (0.0-0.4) % Neut % (Auto) (45-73) % Lymph % (Auto) (20-40) % [place] % (Auto) (2-11) % Eos % (Auto) (0-4) % Baso % (Auto) (0-2) % Lymph # (Auto) (1.2-4.9) X10*3/uL [place] # (Auto) (0.1-1.2) X10*3/uL Eos # (Auto) (0.0-0.4) X10*3/uL Baso # (Auto) (0.0-0.2) X10*3/uL Abs Immat Gran (auto) (0.00-0.03) X10*3/uL Absolute Neuts (auto) (2.0-8.3) x10*3/uL Absolute Nucleated RBC (0.0-0.012) X10*3/uL Nucleated RBC % (auto) (0.0-0.2) /100WBC PT (10.0-13.1) SEC INR (0.9-1.1) APTT (26.0-36.4) SEC Sodium (135-145) mmol/L Potassium (3.3-5.1) mmol/L Chloride (96-108) mmol/L Carbon Dioxide (22-29) mmol/L Anion Gap (12-20) BUN (9-16) mg/dL Creatinine (0.5-1.4) mg/dL Estim Creat Clear Calc Estimated GFR POC Glucose (60-115) mg/dL Random Glucose (60-115) mg/dL Calcium (8.4-10.2) mg/dL Total Bilirubin (0.0-1.0) mg/dL AST (5-37) U/L ALT (0-40) U/L Alkaline Phosphatase (39-117) U/L Troponin I High Sens (<3.5-35.0) ng/L Total Protein (6.5-8.0) g/dL Albumin (3.5-5.0) g/dL Influenza Type A (PCR) (Negative) Influenza Type B (PCR) (Negative) RSV RNA Qual (PCR) (Negative) SARS-CoV-2 RNA (RT-PCR) (Negative) Blood Type O Positive Antibody Screen NEGATIVE <LIZBETH Beebe - Last Filed: 05/16/22 19:09> Lab Results 05/16/22 05/16/22 05/16/22 Range/Units 12:51 13:10 13:10 WBC 9.8 (4.8-10.8) X10*3/uL RBC 3.97 L D (4.60-5.80) X10*6/uL Hgb 11.9 L D (14.0-18.0) g/dl Hct 37.5 L D (42.0-52.0) % MCV 94.5 (80.0-98.0) fL MCH 30.0 (27.0-33.0) pg MCHC 31.7 (31.0-36.0) g/dl RDW 13.1 (11.0-16.0) % Plt Count 315 (160-400) X10*3/uL MPV 9.6 (9.4-12.4) fL Immature Gran % (Auto) 0.3 (0.0-0.4) % Neut % (Auto) 75.6 H (45-73) % Lymph % (Auto) 11.0 L (20-40) % [place] % (Auto) 10.7 (2-11) % Eos % (Auto) 1.8 (0-4) % Baso % (Auto) 0.6 (0-2) % Lymph # (Auto) 1.1 L (1.2-4.9) X10*3/uL [place] # (Auto) 1.1 (0.1-1.2) X10*3/uL Eos # (Auto) 0.2 (0.0-0.4) X10*3/uL Baso # (Auto) 0.1 (0.0-0.2) X10*3/uL Abs Immat Gran (auto) 0.03 (0.00-0.03) X10*3/uL Absolute Neuts (auto) 7.4 (2.0-8.3) x10*3/uL Absolute Nucleated RBC 0.000 (0.0-0.012) X10*3/uL Nucleated RBC % (auto) 0.0 (0.0-0.2) /100WBC PT 11.7 (10.0-13.1) SEC INR 1.0 (0.9-1.1) APTT 37.2 H (26.0-36.4) SEC Sodium (135-145) mmol/L Potassium (3.3-5.1) mmol/L Chloride (96-108) mmol/L Carbon Dioxide (22-29) mmol/L Anion Gap (12-20) BUN (9-16) mg/dL Creatinine (0.5-1.4) mg/dL Estim Creat Clear Calc Estimated GFR POC Glucose 119 H (60-115) mg/dL Random Glucose (60-115) mg/dL Calcium (8.4-10.2) mg/dL Total Bilirubin (0.0-1.0) mg/dL AST (5-37) U/L ALT (0-40) U/L Alkaline Phosphatase (39-117) U/L Troponin I High Sens (<3.5-35.0) ng/L Total Protein (6.5-8.0) g/dL Albumin (3.5-5.0) g/dL Influenza Type A (PCR) (Negative) Influenza Type B (PCR) (Negative) RSV RNA Qual (PCR) (Negative) SARS-CoV-2 RNA (RT-PCR) (Negative) Blood Type Antibody Screen 05/16/22 05/16/22 05/16/22 Range/Units 13:10 13:10 13:10 WBC (4.8-10.8) X10*3/uL RBC (4.60-5.80) X10*6/uL Hgb (14.0-18.0) g/dl Hct (42.0-52.0) % MCV (80.0-98.0) fL MCH (27.0-33.0) pg MCHC (31.0-36.0) g/dl RDW (11.0-16.0) % Plt Count (160-400) X10*3/uL MPV (9.4-12.4) fL Immature Gran % (Auto) (0.0-0.4) % Neut % (Auto) (45-73) % Lymph % (Auto) (20-40) % [place] % (Auto) (2-11) % Eos % (Auto) (0-4) % Baso % (Auto) (0-2) % Lymph # (Auto) (1.2-4.9) X10*3/uL [place] # (Auto) (0.1-1.2) X10*3/uL Eos # (Auto) (0.0-0.4) X10*3/uL Baso # (Auto) (0.0-0.2) X10*3/uL Abs Immat Gran (auto) (0.00-0.03) X10*3/uL Absolute Neuts (auto) (2.0-8.3) x10*3/uL Absolute Nucleated RBC (0.0-0.012) X10*3/uL Nucleated RBC % (auto) (0.0-0.2) /100WBC PT (10.0-13.1) SEC INR (0.9-1.1) APTT (26.0-36.4) SEC Sodium 143 (135-145) mmol/L Potassium 4.3 (3.3-5.1) mmol/L Chloride 109 H (96-108) mmol/L Carbon Dioxide 25 (22-29) mmol/L Anion Gap 13 (12-20) BUN 24 H (9-16) mg/dL Creatinine 1.31 (0.5-1.4) mg/dL Estim Creat Clear Calc 57.7 Estimated GFR 53 POC Glucose (60-115) mg/dL Random Glucose 102 (60-115) mg/dL Calcium 9.9 (8.4-10.2) mg/dL Total Bilirubin 0.2 (0.0-1.0) mg/dL AST 17 (5-37) U/L ALT 11 (0-40) U/L Alkaline Phosphatase 142 H (39-117) U/L Troponin I High Sens 8.7 (<3.5-35.0) ng/L Total Protein 7.8 (6.5-8.0) g/dL Albumin 4.9 (3.5-5.0) g/dL Influenza Type A (PCR) NEGATIVE (Negative) Influenza Type B (PCR) NEGATIVE (Negative) RSV RNA Qual (PCR) NEGATIVE (Negative) SARS-CoV-2 RNA (RT-PCR) NEGATIVE (Negative) Blood Type Antibody Screen 05/16/22 Range/Units 13:10 WBC (4.8-10.8) X10*3/uL RBC (4.60-5.80) X10*6/uL Hgb (14.0-18.0) g/dl Hct (42.0-52.0) % MCV (80.0-98.0) fL MCH (27.0-33.0) pg MCHC (31.0-36.0) g/dl RDW (11.0-16.0) % Plt Count (160-400) X10*3/uL MPV (9.4-12.4) fL Immature Gran % (Auto) (0.0-0.4) % Neut % (Auto) (45-73) % Lymph % (Auto) (20-40) % [place] % (Auto) (2-11) % Eos % (Auto) (0-4) % Baso % (Auto) (0-2) % Lymph # (Auto) (1.2-4.9) X10*3/uL [place] # (Auto) (0.1-1.2) X10*3/uL Eos # (Auto) (0.0-0.4) X10*3/uL Baso # (Auto) (0.0-0.2) X10*3/uL Abs Immat Gran (auto) (0.00-0.03) X10*3/uL Absolute Neuts (auto) (2.0-8.3) x10*3/uL Absolute Nucleated RBC (0.0-0.012) X10*3/uL Nucleated RBC % (auto) (0.0-0.2) /100WBC PT (10.0-13.1) SEC INR (0.9-1.1) APTT (26.0-36.4) SEC Sodium (135-145) mmol/L Potassium (3.3-5.1) mmol/L Chloride (96-108) mmol/L Carbon Dioxide (22-29) mmol/L Anion Gap (12-20) BUN (9-16) mg/dL Creatinine (0.5-1.4) mg/dL Estim Creat Clear Calc Estimated GFR POC Glucose (60-115) mg/dL Random Glucose (60-115) mg/dL Calcium (8.4-10.2) mg/dL Total Bilirubin (0.0-1.0) mg/dL AST (5-37) U/L ALT (0-40) U/L Alkaline Phosphatase (39-117) U/L Troponin I High Sens (<3.5-35.0) ng/L Total Protein (6.5-8.0) g/dL Albumin (3.5-5.0) g/dL Influenza Type A (PCR) (Negative) Influenza Type B (PCR) (Negative) RSV RNA Qual (PCR) (Negative) SARS-CoV-2 RNA (RT-PCR) (Negative) Blood Type O Positive Antibody Screen NEGATIVE <[id number] Crespo - Last Filed: 05/16/22 14:58> Independent Interpretation I performed an independent interpretation of an: EKG <LIZBETH Crespo - Last Filed: 05/16/22 14:58> Interpretation: Vent. Rate: 073 BPM ? ? Atrial Rate: 073 BPM P-R Int: 180 ms? QRS Dur: 156 ms QT Int: 414 ms ? ? ? P-R-T Axes: 051 057 043 degrees QTc Int: 456 ms ? Normal sinus rhythm Right bundle branch block Abnormal ECG When compared with ECG of 17-OCT-2021 12:18, No significant change was found DD/ 1253 <LIZBETH Crespo - Last Filed: 05/16/22 14:58> Independent Historian Clinical information obtained from an independent historian. History obtained from or confirmed by: Spouse <LIZBETH Crespo Last Filed: 05/16/22 14:58> Chronic Conditions Patient?s care impacted by: Diabetes <LIZBETH Cerspo - Last Filed: 05/16/22 14:58> Discharge Plan Discharge Clinical Impression: Hypoglycemia <LIZBETH Beebe Last Filed: 05/16/22 19:09> Patient Disposition: Home, Self-Care <LIZBETH Beebe - Last Filed: 05/16/22 19:09> Instructions: What to Do if Your Blood Sugar is Low (ED) <LIZBETH Beebe Last Filed: 05/16/22 19:09> Additional Instructions: Follow up with your primary care provider. Return to the emergency department immediately if your symptoms worsen or if you develop any dizziness, shortness of breath, difficulty breathing, chest pain, blurry vision, loss of vision, nausea, vomiting, abdominal pain, fever, chills, back pain, or any other complaints. <LIZBETH Beebe - Last Filed: 05/16/22 19:09> Prescriptions: No Action finasteride 5 mg tablet 5 mg PO DAILY 90 Days Qty: 90 1RF ascorbic acid (vitamin C) 1,000 mg tablet 1 g PO DAILY 90 Days Qty: 90 1RF atorvastatin 40 mg tablet 1 tab PO BEDTIME insulin glargine [Lantus U-100 Insulin] 100 unit/mL solution 70 unit subcut BID amlodipine 10 mg tablet 1 tab PO DAILY insulin lispro 100 unit/mL solution 30 unit subcut TID olmesartan 40 mg tablet 1 tab PO DAILY hydralazine 100 mg tablet 100 mg PO BID gemfibrozil 600 mg tablet 600 mg PO BID omeprazole 20 mg capsule,delayed release(DR/EC) 1 cap PO DAILY fluconazole [Diflucan] 150 mg tablet 150 mg PO Q3D Qty: 2 0RF docosahexaenoic acid-epa Capsule 1 cap PO DAILY metoprolol succinate 200 mg tablet extended release 24 hr 0.5 tab PO DAILY spironolactone 25 mg tablet 1 tab PO DAILY furosemide 20 mg tablet 2 tab PO DAILY aspirin [Adult Low Dose Aspirin] 81 mg tablet,delayed release (DR/EC) 81 mg PO DAILY furosemide 20 mg tablet 20 mg PO DAILY 30 Days Qty: 30 0RF cefpodoxime 200 mg tablet 200 mg PO BID 10 Days Qty: 20 0RF Rx Instructions: must administer with a meal/food fluconazole 200 mg tablet 400 mg PO DAILY Qty: 5 0RF (DME) insulin syringe-needle U-100 1 mL 28 gauge x 1/2 syringe See Rx Instructions .ROUTE .MEDSUPPLY Qty: 10 Rx Instructions: As directed acetaminophen 500 mg tablet 500 mg PO Q6H PRN (Reason: pain) bacitracin 500 unit/gram ointment topical BID ascorbic acid (vitamin C) 500 mg tablet 0 mg PO gabapentin 300 mg capsule 300 mg PO TID cefuroxime axetil 500 mg tablet 500 mg PO Q12H Qty: 14 0RF methenamine hippurate 1 gram tablet 1 g PO DAILY 90 Days Qty: 90 1RF <LIZBETH Beebe - Last Filed: 05/16/22 19:09> Referrals: Elías Arce III, MD [Primary Care Provider] - <LIZBETH Beebe - Last Filed: 05/16/22 19:09> Interventions: ED Discharge Assessment Last Done: 05/16/22 15:00 <LIZBETH Beebe - Last Filed: 05/16/22 19:09> Discharge Date/Time: 05/16/22 15:03 <LIZBETH Beebe - Last Filed: 05/16/22 19:09> Print Language: Urdu <LIZBETH Beebe - Last Filed: 05/16/22 19:09>
[2022-05-16 13:17] LABS: Glucose, Whole Blood 119 mg/dL (60-115)
[2022-05-16 13:21] LABS: MANUAL DIFF FLAG NO
[2022-05-16 13:22] LABS: Basophils Absolute Auto 0.1 X10*3/uL (0.0-0.2); Basophils Percent Auto 0.6 % (0-2); Eosinophils Absolute Auto 0.2 X10*3/uL (0.0-0.4); Eosinophils Percent Auto 1.8 % (0-4); Hematocrit 37.5 % (42.0-52.0); Hemoglobin 11.9 g/dl (14.0-18.0); Imm Gran Abs Auto 0.03 X10*3/uL (0.00-0.03); Imm Gran Pct Auto 0.3 % (0.0-0.4); Lymphocytes Absolute Auto 1.1 X10*3/uL (1.2-4.9); Mean Corpuscular HGB Conc 31.7 g/dl (31.0-36.0); Mean Corpuscular Volume 94.5 fL (80.0-98.0); Mean Platelet Volume 9.6 fL (9.4-12.4); Monocytes Absolute Auto 1.1 X10*3/uL (0.1-1.2); Monocytes Percent Auto 10.7 % (2-11); Neutrophils Absolute Auto 7.4 x10*3/uL (2.0-8.3); Neutrophils Percent Auto 75.6 % (45-73); Platelet Count 315 X10*3/uL (160-400); Red Blood Count 3.97 X10*6/uL (4.60-5.80); Red Cell Distribution Width 13.1 % (11.0-16.0); White Blood Count 9.8 X10*3/uL (4.8-10.8)
[2022-05-16 13:35] LABS: Prothrombin Time 11.7 SEC (10.0-13.1)
[2022-05-16 13:38] LABS: Partial Thromboplastin Time 37.2 SEC (26.0-36.4)
[2022-05-16 13:45] LABS: Alanine Aminotransferase 11 U/L (0-40); Albumin Level 4.9 g/dL (3.5-5.0); Alkaline Phosphatase 142 U/L (39-117); Anion Gap 13 (12-20); Aspartate Amino Transferase 17 U/L (5-37); Bilirubin Total 0.2 mg/dL (0.0-1.0); Blood Urea Nitrogen 24 mg/dL (9-16); Calcium 9.9 mg/dL (8.4-10.2); Carbon Dioxide 25 mmol/L (22-29); Chloride 109 mmol/L (96-108); Creatinine Clr Calc Pharmacy 57.7; Estimated Glomerular Filt Rate 53; Glucose Random 102 mg/dL (60-115); Potassium 4.3 mmol/L (3.3-5.1); Sodium 143 mmol/L (135-145); Total Protein 7.8 g/dL (6.5-8.0)
[2022-05-16 13:52] LABS: Troponin-I High Sensitivity 8.7 ng/L (<3.5-35.0)
[2022-05-16 13:59] LABS: Influenza A PCR NEGATIVE (Negative); Influenza B PCR NEGATIVE (Negative); Resp Syncy Virus RNA Qual PCR NEGATIVE (Negative); SARS COV2 PCR INHOUSE NEGATIVE (Negative)
== END 2022-05-16 15:03 | disposition home or self-care (01) ==
LOC: HO.ED 15:00
PROVIDERS: Physician Assistant; Emergency Provider Emergency Medicine; PCP Internal Medicine
DX: E11.649 Type 2 diabetes mellitus with hypoglycemia without coma (principal); I25.10 Atherosclerotic heart disease of native coronary artery without angina pectoris; R42 Dizziness and giddiness; Z20.822 Contact with and (suspected) exposure to COVID-19; Z20.828 Contact with and (suspected) exposure to other viral communicable diseases; Z79.899 Other long term (current) drug therapy; Z79.4 Long term (current) use of insulin; Z87.891 Personal history of nicotine dependence
CPT/HCPCS: 0241U; 36415; 80053; 82947; 84484; 85025; 85610; 85730; 86850; 86900; 86901; 93005; 99283

== ENCOUNTER → 2022-05-19 09:05 | Outpatient (BNVA) | payer MEDICARE, SELFPAY | PROVIDERS: PCP Internal Medicine; Visit Provider Urology | DX: N40.1 Benign prostatic hyperplasia with lower urinary tract symptoms (principal); N13.8 Other obstructive and reflux uropathy; R33.8 Other retention of urine; E11.9 Type 2 diabetes mellitus without complications | CPT/HCPCS: 51798; 99212 ==

== ENCOUNTER 2022-07-08 16:27 | Emergency (ER) | payer MEDICARE, SELFPAY ==
--- NOTE | ~2022-07-08 | XR_ITS ---
EXAMINATION: CHEST 2 VIEWS CLINICAL INFORMATION: weakness, cough . COMPARISON: 10/02/2021. TECHNIQUE: PA and lateral views of the chest obtained. FINDINGS: The lungs are well expanded. No focal infiltrate, effusion, edema, or pneumothorax. Cardiac and mediastinal silhouettes are within normal limits for size. Patient status post sternotomy. Upper sternal wires are again noted to be fractured. No acute bony abnormality seen XR/XR chest 2V IMPRESSION: Chronic appearing and postoperative changes but no acute superimposed airspace disease.
--- NOTE | 2022-07-08 16:30 | ED_ITS ---
HPI - General Adult General Chief complaint: Weakness <LIZBETH Crespo - Last Filed: 07/08/22 16:31> Stated complaint: weakness, cant walk, Unknown? <LIZBETH Crespo - Last Filed: 07/08/22 16:31> Time Seen by Provider: 07/08/22 18:09 <LIZBETH Crespo - Last Filed: 07/08/22 16:31> Source: patient and family () <Evie Tidwell MD - Last Filed: 07/08/22 20:59> History of Present Illness HPI narrative: 77-year-old male who presents with complaints of chills, rigors in stating he is just not feeling well denies any GI symptoms and states that he feels like he may have a urine infection. He otherwise denies any shortness of breath or chest pain and states that he is at his baseline and denies any increased swelling of bilateral lower extremities for coughing. <Evie Tidwell MD - Last Filed: 07/08/22 20:59> Related Data Home medications: Home Medications Medication Instructions Recorded Confirmed amlodipine 10 mg tablet 1 tab PO DAILY 04/22/20 10/10/21 atorvastatin 40 mg tablet 1 tab PO BEDTIME 04/22/20 10/04/21 insulin glargine 100 unit/mL 70 unit subcut BID 04/22/20 10/04/21 subcutaneous solution (Lantus U-100 Insulin) insulin lispro 100 unit/mL 30 unit subcut TID 04/22/20 10/04/21 subcutaneous solution olmesartan 40 mg tablet 1 tab PO DAILY 04/22/20 10/04/21 gemfibrozil 600 mg tablet 600 mg PO BID 05/19/20 10/04/21 hydralazine 100 mg tablet 100 mg PO BID 05/19/20 10/10/21 omeprazole 20 mg capsule,delayed 1 cap PO DAILY 05/24/20 10/10/21 release insulin syringe-needle U-100 1 mL #10 ea 09/21/20 08/30/21 28 gauge x 1/2 docosahexaenoic acid (dha)-epa 1 cap PO DAILY 04/14/21 08/30/21 capsule furosemide 20 mg tablet 2 tab PO DAILY 08/04/21 10/10/21 metoprolol succinate 200 mg 0.5 tab PO DAILY 08/04/21 10/10/21 tablet,extended release 24 hr spironolactone 25 mg tablet 1 tab PO DAILY 08/04/21 10/04/21 acetaminophen 500 mg tablet 500 mg PO Q6H PRN pain 08/18/21 10/04/21 bacitracin 500 unit/gram topical topical BID 08/18/21 08/30/21 ointment aspirin 81 mg tablet,delayed 81 mg PO DAILY 10/04/21 10/04/21 release (Adult Low Dose Aspirin) ascorbic acid (vitamin C) 500 mg 0 mg PO 03/07/22 tablet gabapentin 300 mg capsule 300 mg PO TID 03/07/22 Previous Rx's Medication Instructions Recorded cefuroxime axetil 500 mg tablet 500 mg PO Q12H #14 tabs 08/16/21 fluconazole 150 mg tablet 150 mg PO Q3D yeast infection 2 08/17/21 (Diflucan) doses #2 tabs furosemide 20 mg tablet 20 mg PO DAILY 30 days #30 tabs 10/10/21 cefpodoxime 200 mg tablet 200 mg PO BID 10 days #20 tabs 10/17/21 fluconazole 200 mg tablet 400 mg PO DAILY #5 tabs 10/17/21 methenamine hippurate 1 gram tablet 1 g PO DAILY 90 days #90 tabs 11/08/21 finasteride 5 mg tablet 5 mg PO DAILY 90 days #90 tabs 03/07/22 ascorbic acid (vitamin C) 1,000 mg 1 g PO DAILY 90 days #90 tabs 05/08/22 tablet cefdinir 300 mg capsule 300 mg PO BID 7 days #14 caps 07/08/22 <LIZBETH Crespo - Last Filed: 07/08/22 16:31> Allergies/adverse reactions: Allergies Allergy/AdvReac Type Severity Reaction Status Date / Time No Known Allergies Allergy Verified 07/08/22 16:31 [No Known Allergies*] <LIZBETH Crespo - Last Filed: 07/08/22 16:31> Review of Systems Review of Systems: Pertinent positives and negatives as stated in HPI <Evie Tidwell MD - Last Filed: 07/08/22 20:59> PMFSH Past Medical History Source: nursing notes reviewed <Evie Tidewll MD - Last Filed: 07/08/22 20:59> Medical History: Medical History Acute kidney injury Adenomatous colon polyp Amputation of left great toe Anemia Johnson esophagus Blind right eye CAD (coronary artery disease) Chronic kidney disease, stage 3 CVA (cerebral vascular accident) Diabetes Difficult Marques catheter placement H/O cataract Hepatitis C High cholesterol HTN (hypertension) Hx: UTI (urinary tract infection) Hyperlipidemia Iron deficiency anemia due to chronic blood loss Metabolic acidosis with increased anion gap and accumulation of organic acids Metabolic acidosis with normal anion gap and bicarbonate losses Peripheral vascular disease <LIZBETH Crespo - Last Filed: 07/08/22 16:31> Surgical History: Surgical History History of ankle surgery History of esophagogastroduodenoscopy (EGD) Hx of colonoscopy Hx of cystoscopy Parotid mass (07/28/21) S/P CABG (coronary artery bypass graft) (~2006) S/P CABG x 2 S/P carotid endarterectomy (~08/2018) <LIZBETH Crespo - Last Filed: 07/08/22 16:31> Family History Family History: Family History Other CAD (coronary artery disease) <LIZBETH Crespo - Last Filed: 07/08/22 16:31> Social History Social History: Social History Household Members: Spouse Housing: House Are you a primary primary care sales representative to a significant other at home: No Do you presently have visiting nurse or other home services: No Alcohol intake: never Patient Tobacco Use Status: Former Tobacco user Quit Date: Tobacco use type: Cigarette Smoked in Last 30 Days: No e-Cigarette/Vaping Use: Never Used Use of substances other than those prescribed or required for medical reasons: Yes 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 Advance Directives: Yes Advance Directives on File: Yes Advance Directives Date on File: 04/14/21 service: No Current occupational status: retired <LIZBETH Crespo - Last Filed: 07/08/22 16:31> Physical Exam ED Vital Signs: Vital Signs - 24 hr 07/08/22 16:31 07/08/22 18:20 07/08/22 20:08 Temperature 98.4 F 98.6 F 98.0 F Pulse Rate 77 74 67 Respiratory Rate 28 H 18 16 Blood Pressure 193/64 H 158/62 H 169/69 H Pulse Oximetry 99 96 96 Oxygen Delivery Method Room Air Room Air Room Air BMI result Body Mass Index 33.7 <LIZBETH Crespo - Last Filed: 07/08/22 16:31> Vital Signs - 24 hr 07/08/22 16:31 07/08/22 18:20 07/08/22 20:08 Temperature 98.4 F 98.6 F 98.0 F Pulse Rate 77 74 67 Respiratory Rate 28 H 18 16 Blood Pressure 193/64 H 158/62 H 169/69 H Pulse Oximetry 99 96 96 Oxygen Delivery Method Room Air Room Air Room Air BMI result Body Mass Index 33.7 VITAL SIGNS: Reviewed. GENERAL: Well developed, well nourished, in no acute distress. HEAD: Normocephalic/atraumatic EYES: PERRLA, EOMI EARS: Ext canals without abnormality NOSE: Nares patent bilateral OROPHARYNX: no oral lesions noted, posterior pharynx clear NECK: Supple, no adenopathy LUNGS: Normal breath sounds. No adventitious sounds or accessory muscle use. SpO2<96> CARDIOVASCULAR: Regular rate and rhythm without noted murmurs, no JVD or trace pitting ABDOMEN: Soft, non-tender, non-distended with bowel sounds. MUSCULOSKELETAL: No tenderness, deformities, or effusions noted on gross inspection. EXTREMITIES: No cyanosis, clubbing or edema. SKIN: Inspection of the skin reveals no rashes NEUROLOGIC: Alert and oriented x 4. Strength and sensation to light touch were grossly intact x 4. <Evie Tidwell MD - Last Filed: 07/08/22 20:59> Course Course Course Narrative: RME performed by Misa Nathan PA-C. Patient is a 77 year old male presenting to the emergency department with weakness. Patient has an extensive medical history including CVA, CAD, DM, HTN, HLD, CKD, and right eye blindness. Labs, EKG, and CXR ordered. Patient placed back in the waiting room pending results and room availability. <LIZBETH Crespo - Last Filed: 07/08/22 16:31> Medications Administered Discontinued Medications Generic Name Dose Route Start Last Admin Trade Name Freq PRN Reason Stop Dose Admin Ceftriaxone Sodium 1 gm/ 50 mls @ 100 mls/hr 07/08/22 19:31 07/08/22 20:38 Sodium Chloride IV 07/08/22 20:00 Infused ONCE ONE Infusion <LIZBETH Crespo - Last Filed: 07/08/22 16:31> Medications Administered Discontinued Medications Generic Name Dose Route Start Last Admin Trade Name Freq PRN Reason Stop Dose Admin Ceftriaxone Sodium 1 gm/ 50 mls @ 100 mls/hr 07/08/22 19:31 07/08/22 20:38 Sodium Chloride IV 07/08/22 20:00 Infused ONCE ONE Infusion <Evie Tidwell MD - Last Filed: 07/08/22 20:59> Medical Decision Making Medical Decision Making MDM Narrative: 77-year-old male with history and clinical presentation after review of all investigations my interpretation is as patient has a cystitis. Patient will receive fluids, antibiotics here in the emergency room and then will be discharged on remaining course. <Evie Tidwell MD - Last Filed: 07/08/22 20:59> Differential Diagnosis Please see the discussion above <Evie Tidwell MD - Last Filed: 07/08/22 20:59> Lab Data Please see the discussion above <Evie Tidwell MD - Last Filed: 07/08/22 20:59> Result Diagrams: 07/08/22 17:12 07/08/22 17:43 <LIZBETH Crespo - Last Filed: 07/08/22 16:31> Labs: Lab Results 07/08/22 07/08/22 07/08/22 Range/Units 17:12 17:12 17:12 WBC 12.4 H (4.8-10.8) X10*3/uL RBC 4.61 (4.60-5.80) X10*6/uL Hgb 12.9 L (14.0-18.0) g/dl Hct 41.4 L (42.0-52.0) % MCV 89.8 (80.0-98.0) fL MCH 28.0 (27.0-33.0) pg MCHC 31.2 (31.0-36.0) g/dl RDW 14.2 (11.0-16.0) % Plt Count 316 (160-400) X10*3/uL MPV 9.7 (9.4-12.4) fL Immature Gran % (Auto) 0.4 (0.0-0.4) % Neut % (Auto) 75.5 H (45-73) % Lymph % (Auto) 13.0 L (20-40) % [place] % (Auto) 9.3 (2-11) % Eos % (Auto) 1.2 (0-4) % Baso % (Auto) 0.6 (0-2) % Lymph # (Auto) 1.6 (1.2-4.9) X10*3/uL [place] # (Auto) 1.2 (0.1-1.2) X10*3/uL Eos # (Auto) 0.2 (0.0-0.4) X10*3/uL Baso # (Auto) 0.1 (0.0-0.2) X10*3/uL Abs Immat Gran (auto) 0.05 H (0.00-0.03) X10*3/uL Absolute Neuts (auto) 9.4 H (2.0-8.3) x10*3/uL Absolute Nucleated RBC 0.000 (0.0-0.012) X10*3/uL Nucleated RBC % (auto) 0.0 (0.0-0.2) /100WBC VBG pH (7.32-7.43) VBG pCO2 mmHg VBG pO2 mmHg VBG HCO3 (22-26) mmol/L VBG O2 Saturation % VBG Base Excess mmol/L Sodium (135-145) mmol/L Potassium (3.3-5.1) mmol/L Chloride (96-108) mmol/L Carbon Dioxide (22-29) mmol/L Anion Gap (12-20) BUN (9-16) mg/dL Creatinine (0.5-1.4) mg/dL Estim Creat Clear Calc Estimated GFR Random Glucose (60-115) mg/dL Calcium (8.4-10.2) mg/dL Magnesium (1.6-2.6) mg/dL Total Bilirubin (0.0-1.0) mg/dL AST (5-37) U/L ALT (0-40) U/L Alkaline Phosphatase (39-117) U/L Troponin I High Sens 11.4 (<3.5-35.0) ng/L B-Natriuretic Peptide (<100) pg/mL Total Protein (6.5-8.0) g/dL Albumin (3.5-5.0) g/dL Urine Color Urine Appearance Urine pH (5.0-9.0) Ur Specific Page (1.005-1.025) Urine Protein (Neg-Trace) mg/dL Urine Glucose (UA) (Negative) mg/dL Urine Ketones (Negative) mg/dL Urine Blood (Negative) Urine Nitrite (Negative) Ur Leukocyte Esterase (Negative) Urine RBC (0-2) /HPF Urine WBC (0-5) /HPF Ur Squamous Epith Cells (0-2) /HPF Urine Bacteria (None Seen) Hyaline Casts (0-2) /LPF Influenza Type A (PCR) NEGATIVE (Negative) Influenza Type B (PCR) NEGATIVE (Negative) RSV RNA Qual (PCR) NEGATIVE (Negative) SARS-CoV-2 RNA (RT-PCR) NEGATIVE (Negative) 07/08/22 07/08/22 07/08/22 Range/Units 17:12 17:16 17:43 WBC (4.8-10.8) X10*3/uL RBC (4.60-5.80) X10*6/uL Hgb (14.0-18.0) g/dl Hct (42.0-52.0) % MCV (80.0-98.0) fL MCH (27.0-33.0) pg MCHC (31.0-36.0) g/dl RDW (11.0-16.0) % Plt Count (160-400) X10*3/uL MPV (9.4-12.4) fL Immature Gran % (Auto) (0.0-0.4) % Neut % (Auto) (45-73) % Lymph % (Auto) (20-40) % [place] % (Auto) (2-11) % Eos % (Auto) (0-4) % Baso % (Auto) (0-2) % Lymph # (Auto) (1.2-4.9) X10*3/uL [place] # (Auto) (0.1-1.2) X10*3/uL Eos # (Auto) (0.0-0.4) X10*3/uL Baso # (Auto) (0.0-0.2) X10*3/uL Abs Immat Gran (auto) (0.00-0.03) X10*3/uL Absolute Neuts (auto) (2.0-8.3) x10*3/uL Absolute Nucleated RBC (0.0-0.012) X10*3/uL Nucleated RBC % (auto) (0.0-0.2) /100WBC VBG pH 7.54 H (7.32-7.43) VBG pCO2 26 mmHg VBG pO2 108 mmHg VBG HCO3 22 (22-26) mmol/L VBG O2 Saturation 100.0 % VBG Base Excess 1.6 mmol/L Sodium 141 (135-145) mmol/L Potassium 3.9 (3.3-5.1) mmol/L Chloride 106 (96-108) mmol/L Carbon Dioxide 21 L (22-29) mmol/L Anion Gap 18 (12-20) BUN 23 H (9-16) mg/dL Creatinine 1.27 (0.5-1.4) mg/dL Estim Creat Clear Calc 59.5 Estimated GFR 55 Random Glucose 132 H (60-115) mg/dL Calcium 9.8 (8.4-10.2) mg/dL Magnesium 1.8 (1.6-2.6) mg/dL Total Bilirubin 0.4 (0.0-1.0) mg/dL AST 16 (5-37) U/L ALT 11 (0-40) U/L Alkaline Phosphatase 129 H (39-117) U/L Troponin I High Sens (<3.5-35.0) ng/L B-Natriuretic Peptide 251 H (<100) pg/mL Total Protein 7.1 (6.5-8.0) g/dL Albumin 4.4 (3.5-5.0) g/dL Urine Color Urine Appearance Urine pH (5.0-9.0) Ur Specific Page (1.005-1.025) Urine Protein (Neg-Trace) mg/dL Urine Glucose (UA) (Negative) mg/dL Urine Ketones (Negative) mg/dL Urine Blood (Negative) Urine Nitrite (Negative) Ur Leukocyte Esterase (Negative) Urine RBC (0-2) /HPF Urine WBC (0-5) /HPF Ur Squamous Epith Cells (0-2) /HPF Urine Bacteria (None Seen) Hyaline Casts (0-2) /LPF Influenza Type A (PCR) (Negative) Influenza Type B (PCR) (Negative) RSV RNA Qual (PCR) (Negative) SARS-CoV-2 RNA (RT-PCR) (Negative) 07/08/22 Range/Units 17:43 WBC (4.8-10.8) X10*3/uL RBC (4.60-5.80) X10*6/uL Hgb (14.0-18.0) g/dl Hct (42.0-52.0) % MCV (80.0-98.0) fL MCH (27.0-33.0) pg MCHC (31.0-36.0) g/dl RDW (11.0-16.0) % Plt Count (160-400) X10*3/uL MPV (9.4-12.4) fL Immature Gran % (Auto) (0.0-0.4) % Neut % (Auto) (45-73) % Lymph % (Auto) (20-40) % [place] % (Auto) (2-11) % Eos % (Auto) (0-4) % Baso % (Auto) (0-2) % Lymph # (Auto) (1.2-4.9) X10*3/uL [place] # (Auto) (0.1-1.2) X10*3/uL Eos # (Auto) (0.0-0.4) X10*3/uL Baso # (Auto) (0.0-0.2) X10*3/uL Abs Immat Gran (auto) (0.00-0.03) X10*3/uL Absolute Neuts (auto) (2.0-8.3) x10*3/uL Absolute Nucleated RBC (0.0-0.012) X10*3/uL Nucleated RBC % (auto) (0.0-0.2) /100WBC VBG pH (7.32-7.43) VBG pCO2 mmHg VBG pO2 mmHg VBG HCO3 (22-26) mmol/L VBG O2 Saturation % VBG Base Excess mmol/L Sodium (135-145) mmol/L Potassium (3.3-5.1) mmol/L Chloride (96-108) mmol/L Carbon Dioxide (22-29) mmol/L Anion Gap (12-20) BUN (9-16) mg/dL Creatinine (0.5-1.4) mg/dL Estim Creat Clear Calc Estimated GFR Random Glucose (60-115) mg/dL Calcium (8.4-10.2) mg/dL Magnesium (1.6-2.6) mg/dL Total Bilirubin (0.0-1.0) mg/dL AST (5-37) U/L ALT (0-40) U/L Alkaline Phosphatase (39-117) U/L Troponin I High Sens (<3.5-35.0) ng/L B-Natriuretic Peptide (<100) pg/mL Total Protein (6.5-8.0) g/dL Albumin (3.5-5.0) g/dL Urine Color Yellow Urine Appearance Cloudy Urine pH 6.0 (5.0-9.0) Ur Specific Page 1.010 (1.005-1.025) Urine Protein 300 (3+) H (Neg-Trace) mg/dL Urine Glucose (UA) Negative (Negative) mg/dL Urine Ketones Negative (Negative) mg/dL Urine Blood Negative (Negative) Urine Nitrite Negative (Negative) Ur Leukocyte Esterase Small (1+) H (Negative) Urine RBC 3-5 H (0-2) /HPF Urine WBC >50 H (0-5) /HPF Ur Squamous Epith Cells 0-2 (0-2) /HPF Urine Bacteria 4+ (None Seen) Hyaline Casts 0-2 (0-2) /LPF Influenza Type A (PCR) (Negative) Influenza Type B (PCR) (Negative) RSV RNA Qual (PCR) (Negative) SARS-CoV-2 RNA (RT-PCR) (Negative) <LIZBETH Crespo - Last Filed: 07/08/22 16:31> Lab Results 07/08/22 07/08/22 07/08/22 Range/Units 17:12 17:12 17:12 WBC 12.4 H (4.8-10.8) X10*3/uL RBC 4.61 (4.60-5.80) X10*6/uL Hgb 12.9 L (14.0-18.0) g/dl Hct 41.4 L (42.0-52.0) % MCV 89.8 (80.0-98.0) fL MCH 28.0 (27.0-33.0) pg MCHC 31.2 (31.0-36.0) g/dl RDW 14.2 (11.0-16.0) % Plt Count 316 (160-400) X10*3/uL MPV 9.7 (9.4-12.4) fL Immature Gran % (Auto) 0.4 (0.0-0.4) % Neut % (Auto) 75.5 H (45-73) % Lymph % (Auto) 13.0 L (20-40) % [place] % (Auto) 9.3 (2-11) % Eos % (Auto) 1.2 (0-4) % Baso % (Auto) 0.6 (0-2) % Lymph # (Auto) 1.6 (1.2-4.9) X10*3/uL [place] # (Auto) 1.2 (0.1-1.2) X10*3/uL Eos # (Auto) 0.2 (0.0-0.4) X10*3/uL Baso # (Auto) 0.1 (0.0-0.2) X10*3/uL Abs Immat Gran (auto) 0.05 H (0.00-0.03) X10*3/uL Absolute Neuts (auto) 9.4 H (2.0-8.3) x10*3/uL Absolute Nucleated RBC 0.000 (0.0-0.012) X10*3/uL Nucleated RBC % (auto) 0.0 (0.0-0.2) /100WBC VBG pH (7.32-7.43) VBG pCO2 mmHg VBG pO2 mmHg VBG HCO3 (22-26) mmol/L VBG O2 Saturation % VBG Base Excess mmol/L Sodium (135-145) mmol/L Potassium (3.3-5.1) mmol/L Chloride (96-108) mmol/L Carbon Dioxide (22-29) mmol/L Anion Gap (12-20) BUN (9-16) mg/dL Creatinine (0.5-1.4) mg/dL Estim Creat Clear Calc Estimated GFR Random Glucose (60-115) mg/dL Calcium (8.4-10.2) mg/dL Magnesium (1.6-2.6) mg/dL Total Bilirubin (0.0-1.0) mg/dL AST (5-37) U/L ALT (0-40) U/L Alkaline Phosphatase (39-117) U/L Troponin I High Sens 11.4 (<3.5-35.0) ng/L B-Natriuretic Peptide (<100) pg/mL Total Protein (6.5-8.0) g/dL Albumin (3.5-5.0) g/dL Urine Color Urine Appearance Urine pH (5.0-9.0) Ur Specific Page (1.005-1.025) Urine Protein (Neg-Trace) mg/dL Urine Glucose (UA) (Negative) mg/dL Urine Ketones (Negative) mg/dL Urine Blood (Negative) Urine Nitrite (Negative) Ur Leukocyte Esterase (Negative) Urine RBC (0-2) /HPF Urine WBC (0-5) /HPF Ur Squamous Epith Cells (0-2) /HPF Urine Bacteria (None Seen) Hyaline Casts (0-2) /LPF Influenza Type A (PCR) NEGATIVE (Negative) Influenza Type B (PCR) NEGATIVE (Negative) RSV RNA Qual (PCR) NEGATIVE (Negative) SARS-CoV-2 RNA (RT-PCR) NEGATIVE (Negative) 07/08/22 07/08/22 07/08/22 Range/Units 17:12 17:16 17:43 WBC (4.8-10.8) X10*3/uL RBC (4.60-5.80) X10*6/uL Hgb (14.0-18.0) g/dl Hct (42.0-52.0) % MCV (80.0-98.0) fL MCH (27.0-33.0) pg MCHC (31.0-36.0) g/dl RDW (11.0-16.0) % Plt Count (160-400) X10*3/uL MPV (9.4-12.4) fL Immature Gran % (Auto) (0.0-0.4) % Neut % (Auto) (45-73) % Lymph % (Auto) (20-40) % [place] % (Auto) (2-11) % Eos % (Auto) (0-4) % Baso % (Auto) (0-2) % Lymph # (Auto) (1.2-4.9) X10*3/uL [place] # (Auto) (0.1-1.2) X10*3/uL Eos # (Auto) (0.0-0.4) X10*3/uL Baso # (Auto) (0.0-0.2) X10*3/uL Abs Immat Gran (auto) (0.00-0.03) X10*3/uL Absolute Neuts (auto) (2.0-8.3) x10*3/uL Absolute Nucleated RBC (0.0-0.012) X10*3/uL Nucleated RBC % (auto) (0.0-0.2) /100WBC VBG pH 7.54 H (7.32-7.43) VBG pCO2 26 mmHg VBG pO2 108 mmHg VBG HCO3 22 (22-26) mmol/L VBG O2 Saturation 100.0 % VBG Base Excess 1.6 mmol/L Sodium 141 (135-145) mmol/L Potassium 3.9 (3.3-5.1) mmol/L Chloride 106 (96-108) mmol/L Carbon Dioxide 21 L (22-29) mmol/L Anion Gap 18 (12-20) BUN 23 H (9-16) mg/dL Creatinine 1.27 (0.5-1.4) mg/dL Estim Creat Clear Calc 59.5 Estimated GFR 55 Random Glucose 132 H (60-115) mg/dL Calcium 9.8 (8.4-10.2) mg/dL Magnesium 1.8 (1.6-2.6) mg/dL Total Bilirubin 0.4 (0.0-1.0) mg/dL AST 16 (5-37) U/L ALT 11 (0-40) U/L Alkaline Phosphatase 129 H (39-117) U/L Troponin I High Sens (<3.5-35.0) ng/L B-Natriuretic Peptide 251 H (<100) pg/mL Total Protein 7.1 (6.5-8.0) g/dL Albumin 4.4 (3.5-5.0) g/dL Urine Color Urine Appearance Urine pH (5.0-9.0) Ur Specific Page (1.005-1.025) Urine Protein (Neg-Trace) mg/dL Urine Glucose (UA) (Negative) mg/dL Urine Ketones (Negative) mg/dL Urine Blood (Negative) Urine Nitrite (Negative) Ur Leukocyte Esterase (Negative) Urine RBC (0-2) /HPF Urine WBC (0-5) /HPF Ur Squamous Epith Cells (0-2) /HPF Urine Bacteria (None Seen) Hyaline Casts (0-2) /LPF Influenza Type A (PCR) (Negative) Influenza Type B (PCR) (Negative) RSV RNA Qual (PCR) (Negative) SARS-CoV-2 RNA (RT-PCR) (Negative) 07/08/22 Range/Units 17:43 WBC (4.8-10.8) X10*3/uL RBC (4.60-5.80) X10*6/uL Hgb (14.0-18.0) g/dl Hct (42.0-52.0) % MCV (80.0-98.0) fL MCH (27.0-33.0) pg MCHC (31.0-36.0) g/dl RDW (11.0-16.0) % Plt Count (160-400) X10*3/uL MPV (9.4-12.4) fL Immature Gran % (Auto) (0.0-0.4) % Neut % (Auto) (45-73) % Lymph % (Auto) (20-40) % [place] % (Auto) (2-11) % Eos % (Auto) (0-4) % Baso % (Auto) (0-2) % Lymph # (Auto) (1.2-4.9) X10*3/uL [place] # (Auto) (0.1-1.2) X10*3/uL Eos # (Auto) (0.0-0.4) X10*3/uL Baso # (Auto) (0.0-0.2) X10*3/uL Abs Immat Gran (auto) (0.00-0.03) X10*3/uL Absolute Neuts (auto) (2.0-8.3) x10*3/uL Absolute Nucleated RBC (0.0-0.012) X10*3/uL Nucleated RBC % (auto) (0.0-0.2) /100WBC VBG pH (7.32-7.43) VBG pCO2 mmHg VBG pO2 mmHg VBG HCO3 (22-26) mmol/L VBG O2 Saturation % VBG Base Excess mmol/L Sodium (135-145) mmol/L Potassium (3.3-5.1) mmol/L Chloride (96-108) mmol/L Carbon Dioxide (22-29) mmol/L Anion Gap (12-20) BUN (9-16) mg/dL Creatinine (0.5-1.4) mg/dL Estim Creat Clear Calc Estimated GFR Random Glucose (60-115) mg/dL Calcium (8.4-10.2) mg/dL Magnesium (1.6-2.6) mg/dL Total Bilirubin (0.0-1.0) mg/dL AST (5-37) U/L ALT (0-40) U/L Alkaline Phosphatase (39-117) U/L Troponin I High Sens (<3.5-35.0) ng/L B-Natriuretic Peptide (<100) pg/mL Total Protein (6.5-8.0) g/dL Albumin (3.5-5.0) g/dL Urine Color Yellow Urine Appearance Cloudy Urine pH 6.0 (5.0-9.0) Ur Specific Page 1.010 (1.005-1.025) Urine Protein 300 (3+) H (Neg-Trace) mg/dL Urine Glucose (UA) Negative (Negative) mg/dL Urine Ketones Negative (Negative) mg/dL Urine Blood Negative (Negative) Urine Nitrite Negative (Negative) Ur Leukocyte Esterase Small (1+) H (Negative) Urine RBC 3-5 H (0-2) /HPF Urine WBC >50 H (0-5) /HPF Ur Squamous Epith Cells 0-2 (0-2) /HPF Urine Bacteria 4+ (None Seen) Hyaline Casts 0-2 (0-2) /LPF Influenza Type A (PCR) (Negative) Influenza Type B (PCR) (Negative) RSV RNA Qual (PCR) (Negative) SARS-CoV-2 RNA (RT-PCR) (Negative) <Evie Tidwell MD - Last Filed: 07/08/22 20:59> Independent Interpretation I performed an independent interpretation of an: EKG <Evie Tidwell MD - Last Filed: 07/08/22 20:59> Interpretation: Normal sinus rhythm, HR-77, right bundle-branch block at baseline, no STEMI, KS/QTC is within normal limits. <Evie Tidwell MD - Last Filed: 07/08/22 20:59> Radiology Impression Radiologist Impression: My interpretation is in agreement with radiology's impression of the imaging studies. <Evie Tidwell MD - Last Filed: 07/08/22 20:59> External Record Review External record reviewed: Outpatient record and Prior outpatient labs <Evie Tidwell MD - Last Filed: 07/08/22 20:59> Chronic Conditions Patient?s care impacted by: Hypertension <Evie Tidwell MD - Last Filed: 07/08/22 20:59> Critical Care Time Critical Care Time Critical Care Time: Yes <Evie Tidwell MD - Last Filed: 07/08/22 20:59> Total Critical Care Time: 30 <Evie Tidwell MD - Last Filed: 07/08/22 20:59> Attestation: I personally attest to this time spent taking care of the patient. <Evie Tidwell MD - Last Filed: 07/08/22 20:59> Discharge Plan Discharge Clinical Impression: Cystitis <LIZBETH Crespo - Last Filed: 07/08/22 16:31> Patient Disposition: Home, Self-Care <LIZBETH Crespo - Last Filed: 07/08/22 16:31> Instructions: Urinary Tract Infection in Men (ED) <LIZBETH Crespo - Last Filed: 07/08/22 16:31> Additional Instructions: 1. Resume all home medications as prescribed. 2. Complete the entire course of antibiotics as prescribed. 3. If you do not improve in the next 24-48 hours please do not hesitate to return to the emergency room. 4. Please follow-up with your primary care provider and/or your urologist. <LIZBETH Crespo - Last Filed: 07/08/22 16:31> Prescriptions: New cefdinir 300 mg capsule 300 mg PO BID 7 Days Qty: 14 0RF No Action finasteride 5 mg tablet 5 mg PO DAILY 90 Days Qty: 90 1RF ascorbic acid (vitamin C) 1,000 mg tablet 1 g PO DAILY 90 Days Qty: 90 1RF atorvastatin 40 mg tablet 1 tab PO BEDTIME insulin glargine [Lantus U-100 Insulin] 100 unit/mL solution 70 unit subcut BID amlodipine 10 mg tablet 1 tab PO DAILY insulin lispro 100 unit/mL solution 30 unit subcut TID olmesartan 40 mg tablet 1 tab PO DAILY hydralazine 100 mg tablet 100 mg PO BID gemfibrozil 600 mg tablet 600 mg PO BID omeprazole 20 mg capsule,delayed release(DR/EC) 1 cap PO DAILY fluconazole [Diflucan] 150 mg tablet 150 mg PO Q3D Qty: 2 0RF docosahexaenoic acid-epa Capsule 1 cap PO DAILY metoprolol succinate 200 mg tablet extended release 24 hr 0.5 tab PO DAILY spironolactone 25 mg tablet 1 tab PO DAILY furosemide 20 mg tablet 2 tab PO DAILY aspirin [Adult Low Dose Aspirin] 81 mg tablet,delayed release (DR/EC) 81 mg PO DAILY furosemide 20 mg tablet 20 mg PO DAILY 30 Days Qty: 30 0RF cefpodoxime 200 mg tablet 200 mg PO BID 10 Days Qty: 20 0RF Rx Instructions: must administer with a meal/food fluconazole 200 mg tablet 400 mg PO DAILY Qty: 5 0RF (DME) insulin syringe-needle U-100 1 mL 28 gauge x 1/2 syringe See Rx Instructions .ROUTE .MEDSUPPLY Qty: 10 Rx Instructions: As directed acetaminophen 500 mg tablet 500 mg PO Q6H PRN (Reason: pain) bacitracin 500 unit/gram ointment topical BID ascorbic acid (vitamin C) 500 mg tablet 0 mg PO gabapentin 300 mg capsule 300 mg PO TID cefuroxime axetil 500 mg tablet 500 mg PO Q12H Qty: 14 0RF methenamine hippurate 1 gram tablet 1 g PO DAILY 90 Days Qty: 90 1RF <LIZBETH Crespo - Last Filed: 07/08/22 16:31> Referrals: Elías Arce III, MD [Primary Care Provider] - <LIZBETH Crespo - Last Filed: 07/08/22 16:31>
[2022-07-08 16:31] VITALS: BP 193/64; PULSE 77; RESP 28; TEMP 36.9; O2SAT 99; BMI 33.7
--- NOTE | 2022-07-08 16:31 | ECG_ITS ---
Test Reason : WEAKNESS Blood Pressure : / mmHG Vent. Rate : 077 BPM Atrial Rate : 077 BPM P-R Int : 182 ms QRS Dur : 152 ms QT Int : 424 ms P-R-T Axes : 056 053 035 degrees QTc Int : 479 ms Normal sinus rhythm Right bundle branch block Abnormal ECG When compared with ECG of 16-MAY-2022 12:53, No significant change was found Referred By: Misa Nathan Electronically Signed By:Brady Kimbrough
[2022-07-08 17:18] LABS: MANUAL DIFF FLAG NO
[2022-07-08 17:20] LABS: Basophils Absolute Auto 0.1 X10*3/uL (0.0-0.2); Basophils Percent Auto 0.6 % (0-2); Eosinophils Absolute Auto 0.2 X10*3/uL (0.0-0.4); Eosinophils Percent Auto 1.2 % (0-4); Hematocrit 41.4 % (42.0-52.0); Hemoglobin 12.9 g/dl (14.0-18.0); Imm Gran Abs Auto 0.05 X10*3/uL (0.00-0.03); Imm Gran Pct Auto 0.4 % (0.0-0.4); Lymphocytes Absolute Auto 1.6 X10*3/uL (1.2-4.9); Mean Corpuscular HGB Conc 31.2 g/dl (31.0-36.0); Mean Corpuscular Volume 89.8 fL (80.0-98.0); Mean Platelet Volume 9.7 fL (9.4-12.4); Monocytes Absolute Auto 1.2 X10*3/uL (0.1-1.2); Monocytes Percent Auto 9.3 % (2-11); Neutrophils Absolute Auto 9.4 x10*3/uL (2.0-8.3); Neutrophils Percent Auto 75.5 % (45-73); Platelet Count 316 X10*3/uL (160-400); Red Blood Count 4.61 X10*6/uL (4.60-5.80); Red Cell Distribution Width 14.2 % (11.0-16.0); White Blood Count 12.4 X10*3/uL (4.8-10.8)
[2022-07-08 17:22] LABS: Venous Blood Gas Refer to POC result
[2022-07-08 17:23] LABS: VBG Base Excess 1.6 mmol/L; VBG HCO3 22 mmol/L (22-26); VBG pCO2 26 mmHg; VBG pH 7.54 (7.32-7.43); VBG pO2 108 mmHg
[2022-07-08 17:45] LABS: B Type Natriuretic Peptide 251 pg/mL (<100); Troponin-I High Sensitivity 11.4 ng/L (<3.5-35.0)
[2022-07-08 17:52] LABS: Appearance Urine Cloudy; Color Urine Yellow; Glucose Urine UA Negative (Negative); Leukocyte Esterase Urine Small (1+) (Negative); Nitrite Urine Negative (Negative); UMIC TRIGGER UACC YES; Urine Blood Negative (Negative); Urine Ketones Negative (Negative); Urine Protein 300 (3+) mg/dL (Neg-Trace)
[2022-07-08 17:54] LABS: Bacteria Urine 4+ (None Seen); Hyaline Casts Urine 0-2 /LPF (0-2); Squamous Epithelial Cell Urine 0-2 /HPF (0-2); UACC Culture Trigger YES; WBC Urine >50 /HPF (0-5)
[2022-07-08 17:57] LABS: Influenza A PCR NEGATIVE (Negative); Influenza B PCR NEGATIVE (Negative); Resp Syncy Virus RNA Qual PCR NEGATIVE (Negative); SARS COV2 PCR INHOUSE NEGATIVE (Negative)
[2022-07-08 18:06] LABS: Alanine Aminotransferase 11 U/L (0-40); Albumin Level 4.4 g/dL (3.5-5.0); Alkaline Phosphatase 129 U/L (39-117); Anion Gap 18 (12-20); Aspartate Amino Transferase 16 U/L (5-37); Bilirubin Total 0.4 mg/dL (0.0-1.0); Blood Urea Nitrogen 23 mg/dL (9-16); Calcium 9.8 mg/dL (8.4-10.2); Carbon Dioxide 21 mmol/L (22-29); Chloride 106 mmol/L (96-108); Creatinine Clr Calc Pharmacy 59.5; Estimated Glomerular Filt Rate 55; Glucose Random 132 mg/dL (60-115); Magnesium 1.8 mg/dL (1.6-2.6); Potassium 3.9 mmol/L (3.3-5.1); Sodium 141 mmol/L (135-145); Total Protein 7.1 g/dL (6.5-8.0)
[2022-07-08 18:20] VITALS: BP 158/62; PULSE 74; RESP 18; TEMP 37; O2SAT 96
--- NOTE | 2022-07-08 18:25 | PC.NURSE ---
patient a&ox3, cardiac catheterization technologist sinus mai, vss, call carter within reach, will continue to monitor
--- NOTE | 2022-07-08 18:50 | PC.NURSE ---
pt AOx3, reporting generalized weakness which has progressed so he is unable to walk comfortable. EKG done, IV inserted. Labs drawn, crown perforator operator intact - NRS. Will continue to monitor
[2022-07-08] MEDS: cefTRIAXone sodium 1 GM in 0.9 % Sodium Chloride 50 ML IV (20:05)
[2022-07-08 20:08] VITALS: BP 169/69; PULSE 67; RESP 16; TEMP 36.7; O2SAT 96
--- NOTE | 2022-07-08 20:09 | PC.NURSE ---
patient a&ox3, classroom monitor sinus mai, iv abx running per order, vss, will continue to monitor
--- NOTE | 2022-07-08 20:11 | PC.NURSE ---
Addendum entered by Kiera Nelson 07/08/22 20:12: per provider no blood cultures to be drawn Original Note: ABX hung per order
--- NOTE | 2022-07-08 20:40 | PC.NURSE ---
dr. diallo notified iv abx are completed
[2022-07-08] MEDS: Furosemide 20 MG/2 ML VIAL IVPUSH (21:08)
[2022-07-08 21:11] VITALS: BP 151/50; PULSE 73; RESP 14; O2SAT 97
== END 2022-07-08 21:20 | disposition home or self-care (01) ==
PROVIDERS: Physician Assistant Medical; Emergency Provider Student in an Organized Health Care Education/Training Program; PCP Internal Medicine
DX: N30.90 Cystitis, unspecified without hematuria (principal); B96.20 Unspecified Escherichia coli [E. coli] as the cause of diseases classified elsewhere; R00.1 Bradycardia, unspecified; R53.1 Weakness; Z20.822 Contact with and (suspected) exposure to COVID-19; Z20.828 Contact with and (suspected) exposure to other viral communicable diseases; E11.22 Type 2 diabetes mellitus with diabetic chronic kidney disease; I12.9 Hypertensive chronic kidney disease with stage 1 through stage 4 chronic kidney disease, or unspecified chronic kidney disease; N18.30 Chronic kidney disease, stage 3 unspecified; E78.5 Hyperlipidemia, unspecified; F12.90 Cannabis use, unspecified, uncomplicated; Z86.73 Personal history of transient ischemic attack (TIA), and cerebral infarction without residual deficits; Z87.891 Personal history of nicotine dependence; Z79.899 Other long term (current) drug therapy; Z79.02 Long term (current) use of antithrombotics/antiplatelets; Z79.4 Long term (current) use of insulin; Z79.82 Long term (current) use of aspirin
CPT/HCPCS: 0241U; 36415; 71046; 80053; 81001; 82803; 83735; 83880; 84484; 85025; 87086; 87088; 87186; 93005; 96365; 96375; 99284; 99285; J0696; J1940

== ENCOUNTER 2022-07-20 12:33 | Outpatient (REF) | payer MEDICARE, SELFPAY ==
--- NOTE | ~2022-07-20 | US_ITS ---
EXAMINATION: US EXTRACRANIAL CAROTID DUPLEX, BILATERAL CLINICAL INFORMATION: Carotid artery stenosis. COMPARISON: Carotid ultrasound 03/02/2022. CT soft tissue neck 03/16/2021, CTA neck 08/04/2021. TECHNIQUE: Real-time ultrasound and Doppler techniques (integrating B-mode 2-D vascular images, Doppler spectral analysis and color-flow Doppler imaging) were utilized to interrogate the extracranial carotid arteries, the vertebral arteries and proximal subclavian arteries bilaterally. The degree of stenosis is determined by criteria similar to NASCET. FINDINGS: Right Side: 1. There is severe atherosclerotic plaque seen in the bifurcation/proximal ICA region. 2. The common carotid artery PSV proximally is 67 cm/s and distally 62 cm/s. 3. The proximal internal carotid artery is chronically occluded, unchanged. 4. The proximal external carotid artery PSV is 575 cm/s. 5. The vertebral artery shows antegrade flow. 6. The subclavian artery velocity is elevated at 237 cm/s. Left Side: 1. There is moderate atherosclerotic plaque seen in the bifurcation/proximal ICA region. 2. The common carotid artery PSV proximally is 116 cm/s and distally 90 cm/s. 3. The proximal internal carotid artery velocities are 209 cm/s systolic and 46 cm/s diastolic. 4. The proximal external carotid artery PSV is 300 cm/s. 5. The vertebral artery shows antegrade flow. 6. The subclavian artery waveforms are normal. US/US carotid duplex BI IMPRESSION: 1. 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 2. LEFT: Moderate, hemodynamically significant stenosis of the proximal left internal carotid artery corresponding to a 50-79% stenosis by velocity criteria. It should be noted that the degree of disease on the prior CTA is relatively mild. Therefore the elevated velocity may be related to compensation for the right-sided occlusion and not reflect a significant stenosis. 3. There is no change in the category severity of disease when compared to the previous study dated 03/02/2022. 4. Incidental note is made of a morphologically abnormal, enlarged right level 3 lymph node measuring 2.5 x 1.6 x 1.6 cm. The node has internal specular reflectors suggesting calcium. This is unchanged compared to prior. This is unchanged compared to prior CT soft tissue neck 03/16/2021 and CTA neck 08/04/2021. As discussed on previously, a metastatic lymph node is of concern.
== END 2022-07-20 12:34 | disposition home or self-care (01) ==
LOC: HO.US 12:33
PROVIDERS: PCP Internal Medicine; Visit Provider Surgery Vascular Surgery
DX: I65.23 Occlusion and stenosis of bilateral carotid arteries (principal)
CPT/HCPCS: 93880

== ENCOUNTER → 2022-09-05 14:53 | Outpatient (BNVA) | payer MEDICARE, SELFPAY | PROVIDERS: PCP Internal Medicine; Visit Provider Surgery Vascular Surgery | DX: I65.23 Occlusion and stenosis of bilateral carotid arteries (principal); Z95.1 Presence of aortocoronary bypass graft; Z98.890 Other specified postprocedural states | CPT/HCPCS: 99212 ==

== ENCOUNTER 2022-09-12 11:11 | Outpatient (REF) | payer MEDICARE, SELFPAY ==
[2022-09-12 11:26] LABS: MANUAL DIFF FLAG NO
[2022-09-12 12:19] LABS: Basophils Absolute Auto 0.1 X10*3/uL (0.0-0.2); Basophils Percent Auto 0.7 % (0-2); Eosinophils Absolute Auto 0.1 X10*3/uL (0.0-0.4); Eosinophils Percent Auto 1.4 % (0-4); Hematocrit 38.1 % (42.0-52.0); Hemoglobin 12.3 g/dl (14.0-18.0); Imm Gran Abs Auto 0.05 X10*3/uL (0.00-0.03); Imm Gran Pct Auto 0.5 % (0.0-0.4); Lymphocytes Absolute Auto 1.1 X10*3/uL (1.2-4.9); Mean Corpuscular HGB Conc 32.3 g/dl (31.0-36.0); Mean Corpuscular Volume 92.9 fL (80.0-98.0); Mean Platelet Volume 10.1 fL (9.4-12.4); Monocytes Absolute Auto 0.9 X10*3/uL (0.1-1.2); Monocytes Percent Auto 9.9 % (2-11); Neutrophils Absolute Auto 7.1 x10*3/uL (2.0-8.3); Neutrophils Percent Auto 75.5 % (45-73); Platelet Count 333 X10*3/uL (160-400); Red Cell Distribution Width 14.5 % (11.0-16.0); White Blood Count 9.4 X10*3/uL (4.8-10.8)
[2022-09-12 13:21] LABS: Alanine Aminotransferase 11 U/L (0-40); Albumin Level 4.5 g/dL (3.5-5.0); Alkaline Phosphatase 156 U/L (39-117); Anion Gap 14 (12-20); Aspartate Amino Transferase 14 U/L (5-37); Bilirubin Total 0.5 mg/dL (0.0-1.0); Blood Urea Nitrogen 34 mg/dL (9-16); Calcium 9.2 mg/dL (8.4-10.2); Carbon Dioxide 25 mmol/L (22-29); Chloride 107 mmol/L (96-108); Estimated Glomerular Filt Rate 43; Glucose Random 153 mg/dL (60-115); Iron 90 mcg/dL (45-160); Percent Iron Saturation 28 % (15-50); Sodium 141 mmol/L (135-145); Total Iron Binding Capacity 319 mcg/dL (228-428); Total Protein 7.2 g/dL (6.5-8.0); Unsaturated Iron Binding 229 ug/dL
[2022-09-12 13:23] LABS: Ferritin 136 ng/mL (20-250)
== END 2022-09-12 11:12 | disposition home or self-care (01) ==
LOC: HO.LAB 11:11
PROVIDERS: Visit Provider Internal Medicine Gastroenterology
DX: K75.81 Nonalcoholic steatohepatitis (NASH) (principal); D64.9 Anemia, unspecified
CPT/HCPCS: 36415; 80053; 82728; 83540; 85025

== ENCOUNTER → 2022-09-18 10:34 | Outpatient (BNVA) | payer MEDICARE, SELFPAY | PROVIDERS: PCP Internal Medicine; Visit Provider Internal Medicine Gastroenterology | DX: R19.7 Diarrhea, unspecified (principal); D64.9 Anemia, unspecified | CPT/HCPCS: 99212 ==

== ENCOUNTER 2022-11-12 16:32 | Emergency (ER) | payer MEDICARE, SELFPAY ==
--- NOTE | ~2022-11-12 | CT_ITS ---
EXAMINATION: CT ABDOMEN AND PELVIS WITHOUT CONTRAST CLINICAL INFORMATION: Lower abdominal pain and pressure with history of high blood pressure COMPARISON: Multiple prior CT scans of the abdomen pelvis most recently on 08/14/2021. TECHNIQUE: Multidetector volumetric imaging was performed from the superior aspect of the liver through the pubic symphysis. Sagittal and coronal reformatted images were obtained on the technologist's workstation. This CT examination was performed using dose optimization techniques as appropriate, variously including the following: *Automated exposure control *Adjustment of mA and/or kV according to patient size (this includes techniques or standardized protocols for targeted exams where dose is matched to indication/reason for exam; i.e. extremities or head) *Use of iterative reconstruction technique DLP: 772 mGy-cm FINDINGS: LUNG BASES: The visualized lung bases are unremarkable. LIVER, GALLBLADDER, AND BILIARY TREE: The liver is normal in size, shape, and attenuation. No focal hepatic lesion or biliary ductal dilatation is present. The gallbladder contains multiple layering gallstones without obvious pericholecystic inflammatory changes. PANCREAS: Unremarkable. SPLEEN: Unremarkable. ADRENAL GLANDS: Unremarkable. A tiny fat density left adrenal nodule is present consistent with a benign adenoma. KIDNEYS AND URETERS: The kidneys are normal in size, shape, and attenuation. No hydronephrosis, hydroureter, or calculi seen. Multiple benign benign Bosniak class I renal cysts are noted which require no additional imaging or follow-up. No solid renal masses are seen. There is nonspecific bilateral perinephric stranding. BLADDER: Unremarkable. GASTROINTESTINAL TRACT: The small and large bowel are unremarkable. The appendix is unremarkable. ABDOMINAL WALL: No significant hernia is appreciated. LYMPH NODES: Some small iliac and inguinal lymph nodes are present but there is no retroperitoneal lymphadenopathy. VASCULAR: Marked calcific atherosclerotic changes are present in the abdominal aorta and iliofemoral vessels PELVIC VISCERA: The prostate and seminal vesicles are unremarkable. OSSEOUS STRUCTURES: Degenerative changes are noted throughout the spine. No bony destructive lesions CT/CT abdomen pelvis wo IV con IMPRESSION: A cause for the patient's lower abdominal pain and pressure has not been found. Incidental findings described above including cholelithiasis. Fleischner guidelines were followed.
[2022-11-12 17:05] VITALS: BP 169/61; PULSE 74; RESP 22; TEMP 36.1; O2SAT 98; BMI 33.0
--- NOTE | 2022-11-12 17:05 | ED_ITS ---
HPI - Abdominal Pain General Chief Complaint: Urogenital-Male Stated Complaint: abd/bladder pain Time Seen by Provider: 11/12/22 18:20 Source: patient and family Mode of arrival: ambulatory Limitations: no limitations History of Present Illness HPI narrative: 77-year-old male came in for evaluation of suprapubic abdominal distension and pressure. Three patient's symptoms started about 3 weeks ago with feeling pressure and distention in the suprapubic area for the past 3 months, patient also feel frequency urination and increased urgency to urinate, no fever, no chills, no vomiting, no nausea, normal bowel movement. patient follow-up with Dr. Up who prescribed bethanechol for possible bladder spasm. Related Data Home Medications Medication Instructions Recorded Confirmed amlodipine 10 mg tablet 1 tab PO DAILY 04/22/20 10/10/21 atorvastatin 40 mg tablet 1 tab PO BEDTIME 04/22/20 10/04/21 insulin lispro 100 unit/mL 30 unit subcut TID 04/22/20 10/04/21 subcutaneous solution olmesartan 40 mg tablet 1 tab PO DAILY 04/22/20 10/04/21 gemfibrozil 600 mg tablet 600 mg PO BID 05/19/20 10/04/21 hydralazine 100 mg tablet 100 mg PO BID 05/19/20 10/10/21 omeprazole 20 mg capsule,delayed 1 cap PO DAILY 05/24/20 10/10/21 release insulin syringe-needle U-100 1 mL #10 ea 09/21/20 08/30/21 28 gauge x 1/2 furosemide 20 mg tablet 2 tab PO DAILY 08/04/21 10/10/21 metoprolol succinate 200 mg 0.5 tab PO DAILY 08/04/21 10/10/21 tablet,extended release 24 hr spironolactone 25 mg tablet 1 tab PO DAILY 08/04/21 10/04/21 acetaminophen 500 mg tablet 500 mg PO Q6H PRN pain 08/18/21 10/04/21 aspirin 81 mg tablet,delayed 81 mg PO DAILY 10/04/21 10/04/21 release (Adult Low Dose Aspirin) gabapentin 300 mg capsule 300 mg PO TID 03/07/22 albuterol sulfate 90 mcg/actuation inhalation 09/05/22 aerosol inhaler insulin glargine 100 unit/mL 20 unit subcut BID 09/05/22 subcutaneous solution (Lantus U-100 Insulin) cefdinir 300 mg capsule 300 mg PO BID 09/18/22 finasteride 5 mg tablet 5 mg PO DAILY 09/18/22 timolol maleate 0.5 % eye drops 1 drp ophthalmic (eye) QAM 09/18/22 Previous Rx's Medication Instructions Recorded fluconazole 150 mg tablet 150 mg PO Q3D yeast infection 2 08/17/21 (Diflucan) doses #2 tabs fluconazole 200 mg tablet 400 mg PO DAILY #5 tabs 10/17/21 methenamine hippurate 1 gram tablet 1 g PO DAILY 90 days #90 tabs 11/08/21 bethanechol chloride 50 mg tablet 50 mg PO BID 30 days #60 tabs 10/10/22 Allergies Allergy/AdvReac Type Severity Reaction Status Date / Time No Known Allergies Allergy Verified 11/12/22 17:05 [No Known Allergies*] Review of Systems Review of Systems All other systems are reviewed and are negative Constitutional: Reports as per HPI and Reports no additional constitutional complaints Eyes: Reports as per HPI and Reports no additional eye complaints Reports system reviewed and no additional complaints, except as documented Cardiovascular: Reports as per HPI and Reports no additional cardiovascular complaints Respiratory: Reports as per HPI and Reports no additional respiratory complaints Gastrointestinal: Reports as per HPI and Reports no additional gastrointestinal complaints Genitourinary: Reports no additional female genitourinary complaints Musculoskeletal: Reports no additional musculoskeletal complaints Skin/Breast: Reports system reviewed and no additional complaints, except as docu Psychiatric: Reports no additional psychiatric complaints Endocrine: Reports no additional endocrine complaints Hematologic/Lymphatic: Reports no additional hematologic/lymphatic complaints Allergic/Immunologic: Reports no additional allergic/immunologic complaints Reports system reviewed and no additional complaints, except as documented and Reports Abnormal speech present [facility] Past Medical History Medical History Acute kidney injury Adenomatous colon polyp Amputation of left great toe Anemia Johnson esophagus Blind right eye CAD (coronary artery disease) Chronic kidney disease, stage 3 CVA (cerebral vascular accident) Diabetes Difficult Marques catheter placement H/O cataract Hepatitis C High cholesterol HTN (hypertension) Hx: UTI (urinary tract infection) Hyperlipidemia Iron deficiency anemia due to chronic blood loss Metabolic acidosis with increased anion gap and accumulation of organic acids Metabolic acidosis with normal anion gap and bicarbonate losses Peripheral vascular disease Surgical History History of ankle surgery History of esophagogastroduodenoscopy (EGD) Hx of colonoscopy Hx of cystoscopy Parotid mass (07/28/21) S/P CABG (coronary artery bypass graft) (~2006) S/P CABG x 2 S/P carotid endarterectomy (~08/2018) Family History Family History Other CAD (coronary artery disease) Social History Social History Household Members: Spouse Housing: House Are you a primary progressive care unit registered nurse to a significant other at home: No Do you presently have visiting nurse or other home services: No Alcohol intake: never Patient Tobacco Use Status: Former Tobacco user Quit Date: Tobacco use type: Cigarette Smoked in Last 30 Days: No e-Cigarette/Vaping Use: Never Used Use of substances other than those prescribed or required for medical reasons: No Substance Use Type: Marijuana Advance Directives: Yes Advance Directives on File: Yes Advance Directives Date on File: 04/14/21 service: No Current occupational status: retired Physical Exam ED Vital Signs: Vital Signs - 24 hr 11/12/22 17:05 11/12/22 17:15 11/12/22 17:33 Temperature 96.9 F 98.2 F 97.8 F Pulse Rate 74 73 70 Respiratory Rate 22 H 18 18 Blood Pressure 169/61 H 171/61 H 163/70 H Pulse Oximetry 98 97 97 Oxygen Delivery Method Room Air Room Air Room Air BMI result Body Mass Index 33.0 Vital signs have been reviewed as appeared to be correct. Blood pressure normal. Heart rate normal. Respiration rate normal. Temperature normal. Ox ygen saturation normal. Appearance: Alert. Oriented X3. No acute distress. Head: Normal external exam. Normocephalic. Atraumatic. No Chavez signs noted. No raccoon eyes noted Eyes: PERRLA. EOMI. Conjunctiva and sclera normal. Eyelids normal. ENT: TM's Normal. Pharynx normal. Uvula midline. Moist mucous membranes. No trismus noted. No drooling noted. No muffled voice noted. Neck: Normal inspection. Neck supple. FROM. No adenopathy. Thyroid Normal. No meningeal signs. No neck mass noted. CVS: Normal heart rate and rhythm. Heart sound normal. No murmurs noted. Pulses normal throughout. Respiratory: No respiratory distress. Painless inspiration. Breath sounds n ormal. No wheezes/rales/rhonchi noted. Chest nontender. No accessory muscle usage noted or decreased air movement noted. Abdomen: Soft and nontender. Bowel sounds normal in all 4 quadrants. No diste ntion noted. No organomegaly noted. No visible injury noted. Back: No CVA tenderness. Full range of motion noted. Skin: Skin warm and dry. Normal skin color. Normal skin turgor. No rashes/lesions/lacerations noted. Extremities: No lower extremity edema. Extremities exhibit normal range of m otion. Extremities nontender. Neuro: Oriented X 3. Cranial nerve exam: II-XII are grossly intact No motor deficit. No sensory deficit. Reflexes normal. Course Course Course Narrative: RME- 17PM - 77yoM with a PMHx of DOMENICO, amputation of left great toe, blind to the right eye, CAD, CKD stage 3, CVA, diabetes, hepatitis-C, hyperlipidemia, hypertension, PVD and BPH who is presenting to the ED with c/o abdominal pain suprapubic/lower abdomen since June worse in the past few days. He reports the pain as pressure sensation. He reports he has been having trouble starting a urine and he does n ot feel like he completely empties his urine. He reports ?I feel like I have an obstruction?. He has had high blood sugars in the past few days. Reports he has not had any fevers, chills, chest pain or shortness of breath, back pain or flank pain, dysuria hematuria, abnormal penile discharge, rashes, diarrhea constipation or any other symptoms complaints or concerns at this time. He reports that he has the appointment with Dr. Hartman on Sunday at 1:45pm. Plan: Labs, UA and patient will need a CT scan abdomen pelvis without IV contrast due to CKD. Patient will be sent to the ED to be evaluated for further evaluation treatment Reevaluation(s) Reevaluation #1: 77-year-old male with feeling of suprapubic pressure, UA and blood workup with CT of abdomen and pelvis revealing nonspecific findings. To continue with bethanechol as recommended by urologist To follow-up with Dr. Up. Time: 20:07 Medical Decision Making Differential Diagnosis Differential Diagnoses: The differential diagnosis associated with the presentation includes (Urine retention, UTI, stone, electrolyte abnormality, acute renal failure, severe anemia.) Admission/Observation Consideration of admission/observation: Escalation of care including admission/observation considered Lab Data MDM Lab Attestation statement: I reviewed the patient's lab results. 11/12/22 17:24 11/12/22 17:24 Labs: Lab Results 11/12/22 11/12/22 11/12/22 Range/Units 17:24 17:24 17:52 WBC 10.9 H (4.8-10.8) X10*3/uL RBC 4.42 L (4.60-5.80) X10*6/uL Hgb 13.4 L (14.0-18.0) g/dl Hct 42.0 (42.0-52.0) % MCV 95.0 (80.0-98.0) fL MCH 30.3 (27.0-33.0) pg MCHC 31.9 (31.0-36.0) g/dl RDW 13.7 (11.0-16.0) % Plt Count 293 (160-400) X10*3/uL MPV 10.0 (9.4-12.4) fL Immature Gran % (Auto) 1.0 H (0.0-0.4) % Neut % (Auto) 75.2 H (45-73) % Lymph % (Auto) 12.4 L (20-40) % [place] % (Auto) 9.0 (2-11) % Eos % (Auto) 1.6 (0-4) % Baso % (Auto) 0.8 (0-2) % Lymph # (Auto) 1.4 (1.2-4.9) X10*3/uL [place] # (Auto) 1.0 (0.1-1.2) X10*3/uL Eos # (Auto) 0.2 (0.0-0.4) X10*3/uL Baso # (Auto) 0.1 (0.0-0.2) X10*3/uL Abs Immat Gran (auto) 0.11 H (0.00-0.03) X10*3/uL Absolute Neuts (auto) 8.2 (2.0-8.3) x10*3/uL Absolute Nucleated RBC 0.000 (0.0-0.012) X10*3/uL Nucleated RBC % (auto) 0.0 (0.0-0.2) /100WBC Sodium 140 (135-145) mmol/L Potassium 4.7 (3.3-5.1) mmol/L Chloride 110 H (96-108) mmol/L Carbon Dioxide 17 L (22-29) mmol/L Anion Gap 18 (12-20) BUN 33 H (9-16) mg/dL Creatinine 1.57 H (0.5-1.4) mg/dL Estim Creat Clear Calc 47.6 Estimated GFR 43 Random Glucose 131 H (60-115) mg/dL Calcium 10.8 H D (8.4-10.2) mg/dL Magnesium 1.8 (1.6-2.6) mg/dL Total Bilirubin 0.3 (0.0-1.0) mg/dL Direct Bilirubin 0.1 (0.0-0.5) mg/dL AST 17 (5-37) U/L ALT 13 (0-40) U/L Alkaline Phosphatase 124 H (39-117) U/L Total Protein 8.2 H (6.5-8.0) g/dL Albumin 4.8 (3.5-5.0) g/dL Urine Color Yellow Urine Appearance Clear Urine pH 5.5 (5.0-9.0) Ur Specific [place] 1.010 (1.005-1.025) Urine Protein 100 (2+) H (Neg-Trace) mg/dL Urine Glucose (UA) Negative (Negative) mg/dL Urine Ketones Negative (Negative) mg/dL Urine Blood Negative (Negative) Urine Nitrite Negative (Negative) Ur Leukocyte Esterase Negative (Negative) Urine RBC 0-2 (0-2) /HPF Urine WBC 0-5 (0-5) /HPF Ur Squamous Epith Cells 0-2 (0-2) /HPF Urine Bacteria None Seen (None Seen) Hyaline Casts 0-2 (0-2) /LPF Independent Interpretation I performed an independent interpretation of an: CT Scan (Abdomen and pelvis: No acute intra-abdominal pathology.) Radiology Impression Discussion of test interpretation with radiology: I have reviewed the radiologist's reading. Discharge Plan Discharge Clinical Impression: Urgency of urination Patient Disposition: Home, Self-Care Instructions: Urinary Urgency and Frequency (DC) Prescriptions: No Action bethanechol chloride 50 mg tablet 50 mg PO BID 30 Days Qty: 60 3RF atorvastatin 40 mg tablet 1 tab PO BEDTIME amlodipine 10 mg tablet 1 tab PO DAILY insulin lispro 100 unit/mL solution 30 unit subcut TID olmesartan 40 mg tablet 1 tab PO DAILY hydralazine 100 mg tablet 100 mg PO BID gemfibrozil 600 mg tablet 600 mg PO BID omeprazole 20 mg capsule,delayed release(DR/EC) 1 cap PO DAILY fluconazole [Diflucan] 150 mg tablet 150 mg PO Q3D Qty: 2 0RF metoprolol succinate 200 mg tablet extended release 24 hr 0.5 tab PO DAILY spironolactone 25 mg tablet 1 tab PO DAILY furosemide 20 mg tablet 2 tab PO DAILY aspirin [Adult Low Dose Aspirin] 81 mg tablet,delayed release (DR/EC) 81 mg PO DAILY fluconazole 200 mg tablet 400 mg PO DAILY Qty: 5 0RF (DME) insulin syringe-needle U-100 1 mL 28 gauge x 1/2 syringe See Rx Instructions .ROUTE .MEDSUPPLY Qty: 10 Rx Instructions: As directed acetaminophen 500 mg tablet 500 mg PO Q6H PRN (Reason: pain) gabapentin 300 mg capsule 300 mg PO TID timolol maleate 0.5 % drops 1 drp ophthalmic (eye) QAM cefdinir 300 mg capsule 300 mg PO BID finasteride 5 mg tablet 5 mg PO DAILY insulin glargine [Lantus U-100 Insulin] 100 unit/mL solution 20 unit subcut BID albuterol sulfate 90 mcg/actuation HFA aerosol inhaler inhalation methenamine hippurate 1 gram tablet 1 g PO DAILY 90 Days Qty: 90 1RF Referrals: Jon Up MD [Physician] - Elías Arce III, MD [Primary Care Provider] -
[2022-11-12 17:15] VITALS: BP 171/61; PULSE 73; RESP 18; TEMP 36.8; O2SAT 97
[2022-11-12 17:29] LABS: MANUAL DIFF FLAG NO
[2022-11-12 17:33] VITALS: BP 163/70; PULSE 70; RESP 18; TEMP 36.6; O2SAT 97
[2022-11-12 17:45] LABS: Alanine Aminotransferase 13 U/L (0-40); Albumin Level 4.8 g/dL (3.5-5.0); Alkaline Phosphatase 124 U/L (39-117); Anion Gap 18 (12-20); Aspartate Amino Transferase 17 U/L (5-37); Bilirubin Direct 0.1 mg/dL (0.0-0.5); Bilirubin Total 0.3 mg/dL (0.0-1.0); Blood Urea Nitrogen 33 mg/dL (9-16); Calcium 10.8 mg/dL (8.4-10.2); Carbon Dioxide 17 mmol/L (22-29); Chloride 110 mmol/L (96-108); Creatinine Clr Calc Pharmacy 47.6; Estimated Glomerular Filt Rate 43; Glucose Random 131 mg/dL (60-115); Magnesium 1.8 mg/dL (1.6-2.6); Potassium 4.7 mmol/L (3.3-5.1); Sodium 140 mmol/L (135-145); Total Protein 8.2 g/dL (6.5-8.0)
[2022-11-12 17:48] LABS: Basophils Absolute Auto 0.1 X10*3/uL (0.0-0.2); Basophils Percent Auto 0.8 % (0-2); Eosinophils Absolute Auto 0.2 X10*3/uL (0.0-0.4); Eosinophils Percent Auto 1.6 % (0-4); Hemoglobin 13.4 g/dl (14.0-18.0); Imm Gran Abs Auto 0.11 X10*3/uL (0.00-0.03); Lymphocytes Absolute Auto 1.4 X10*3/uL (1.2-4.9); Lymphocytes Percent Auto 12.4 % (20-40); Mean Corpuscular HGB Conc 31.9 g/dl (31.0-36.0); Mean Corpuscular Hemoglobin 30.3 pg (27.0-33.0); Neutrophils Absolute Auto 8.2 x10*3/uL (2.0-8.3); Neutrophils Percent Auto 75.2 % (45-73); Platelet Count 293 X10*3/uL (160-400); Red Blood Count 4.42 X10*6/uL (4.60-5.80); Red Cell Distribution Width 13.7 % (11.0-16.0); White Blood Count 10.9 X10*3/uL (4.8-10.8)
[2022-11-12 18:04] LABS: Appearance Urine Clear; Color Urine Yellow; Glucose Urine UA Negative (Negative); Leukocyte Esterase Urine Negative (Negative); Nitrite Urine Negative (Negative); PH 5.5 (5.0-9.0); UMIC TRIGGER UACC YES; Urine Blood Negative (Negative); Urine Ketones Negative (Negative); Urine Protein 100 (2+) mg/dL (Neg-Trace)
[2022-11-12 18:09] LABS: Bacteria Urine None Seen (None Seen); Hyaline Casts Urine 0-2 /LPF (0-2); RBC Urine 0-2 /HPF (0-2); Squamous Epithelial Cell Urine 0-2 /HPF (0-2); WBC Urine 0-5 /HPF (0-5)
[2022-11-12 19:46] VITALS: BP 157/67; PULSE 75; RESP 18; O2SAT 97
[2022-11-12 20:11] LABS: Prothrombin Time 11.2 SEC (10.0-13.1)
== END 2022-11-12 21:36 | disposition home or self-care (01) ==
PROVIDERS: Physician Assistant Medical; Emergency Provider Emergency Medicine; PCP Internal Medicine
DX: R39.15 Urgency of urination (principal); I25.10 Atherosclerotic heart disease of native coronary artery without angina pectoris; R10.2 Pelvic and perineal pain; Z79.899 Other long term (current) drug therapy; Z87.891 Personal history of nicotine dependence
CPT/HCPCS: 36415; 51798; 74176; 80053; 81001; 82248; 83735; 85025; 85610; 99284

== ENCOUNTER 2022-11-17 13:21 | Outpatient (AMB) | payer MEDICARE, SELFPAY ==
--- NOTE | 2022-11-17 07:05 | A.OFFVIS_ITS ---
Intake Intake Visit Reasons: 6m follow up/PVR Intake Note: Patient presents today for a 6 month follow-up on with PVR: Meds- Furosemide & Gemfibrozil Allergies to Antibiotic- No Known Allergies Blood Thinner- Aspirin PVR- 1st 340 ml, 2nd 268 ml [employer] Paper Coating Supervisor Required: No Accompanied by: Significant Other Allergies No Known Allergies [No Known Allergies*] Allergy (Verified 01/19/23 14:00) Medication List - Last Reconciled 11/17/22 by Yoly Mae MD acetaminophen 500 mg PO Q6H PRN albuterol sulfate 90 mcg/actuation inhalation amlodipine 1 tab PO DAILY aspirin (Adult Low Dose Aspirin) 81 mg PO DAILY atorvastatin 1 tab PO BEDTIME bethanechol chloride 50 mg PO BID 30 days fluconazole (Diflucan) 150 mg PO Q3D 2 doses fluconazole 400 mg (2 x 200 mg) PO DAILY furosemide 2 tabs PO DAILY gabapentin 300 mg PO TID gemfibrozil 600 mg PO BID hydralazine 100 mg PO BID insulin glargine (Lantus U-100 Insulin) 20 units subcut BID insulin lispro 30 units subcut TID insulin syringe-needle U-100 As directed metoprolol succinate ER 0.5 tabs PO DAILY olmesartan 1 tab PO DAILY omeprazole 1 cap PO DAILY spironolactone 1 tab PO DAILY tamsulosin (Flomax) 0.4 mg PO BEDTIME timolol maleate 0.5% 1 drp ophthalmic (eye) QAM HPI HPI Comments History of Present Illness Details John is a 77-year-old male who presents today to the office for a follow-up. 11/17/2022-- The patient was last seen in the office by Dr. Up on 05/19/22. He is followed for lower urinary tract symptoms of incomplete bladder emptying. Past medical history is significant for diabetes, history of stroke, and chronic kidney disease. He is status post laser prostatectomy and SP tube placement in September 2021. He reports that he was having abdominal pain and some bladder pressure. He thought he may have UTI and presented to the emergency room. They did a CAT scan and checked his urine and told him he did not have UTI. I did review the CAT scan findings from 11/12/22. Evaluation today--UA -- No signs of infection. I discussed that he may be having some bladder spasms, otherwise I do not see any signs of UTI at this time. Plan: Prescribed tamsulosin 0.4 mg at bedtime. He was instructed that the medication may cause dizziness or decrease in blood pressure. Any problems, to stop the medication and let us know. Continue the bethanechol 50 mg twice a day. Refill provided. Follow up in 2 months with nurse practitioner to check any improvement in urinary symptoms and follow up PVR. [facility] Medical History Hx: UTI (urinary tract infection) Metabolic acidosis with normal anion gap and bicarbonate losses Metabolic acidosis with increased anion gap and accumulation of organic acids Anemia Difficult [place] catheter placement H/O cataract Adenomatous colon polyp Johnson esophagus Blind right eye CAD (coronary artery disease) Iron deficiency anemia due to chronic blood loss Acute kidney injury Amputation of left great toe Hepatitis C Hyperlipidemia CVA (cerebral vascular accident) Chronic kidney disease, stage 3 Peripheral vascular disease HTN (hypertension) Diabetes High cholesterol Surgical History History of ankle surgery History of esophagogastroduodenoscopy (EGD) Hx of colonoscopy Hx of cystoscopy Parotid mass (07/28/21) S/P CABG (coronary artery bypass graft) (~2006) S/P CABG x 2 S/P carotid endarterectomy (~08/2018) Family History Other CAD (coronary artery disease) Social History Household Members: Spouse Housing: House Are you a primary transitions rn care coordinator to a significant other at home: No Do you presently have visiting nurse or other home services: No Alcohol intake: never Patient Tobacco Use Status: Former Tobacco user Quit Date: Tobacco use type: Cigarette e-Cigarette/Vaping Use: Never Used Substance Use Type: Marijuana Advance Directives Date on File: 04/14/21 service: No Current occupational status: retired Review of Systems Const All systems reviewed & are unremarkable except as noted in HPI and below Reports no additional complaints Eyes Reports no additional complaints ENT Reports no additional complaints Card Denies dyspnea Resp Denies cough and Denies dyspnea GI Reports no additional complaints Musc Reports no additional complaints Skin/Breast Denies rash and Denies unusual bruising Neuro Reports no additional complaints Psych Reports no additional complaints Endo Reports no additional complaints Tray/Lymph Reports no additional complaints Aller/Immun Reports no additional complaints Physical Exam Const General: no acute distress and well developed Orientation/consciousness: patient oriented x3 HEENT Head: Yes normocephalic and Yes atraumatic Eyes Conjunctivae: conjunctivae normal Neck Neck: Yes normal visual inspection Chest Chest palpation & inspection: normal inspection of the chest Resp Effort & Inspection: normal respiratory effort Cardio Rate: regular rate GI Inspection: Yes normal to inspection Palpation (GI): Soft to palpation Neuro General: patient oriented x3 Psych Appearance: grossly normal Affect: normal affect Results AMB Urinalysis, Automated UA Leukoctes 0 Angelika/uL Last Edit by HUMBERTO Ames on 11/17/22 13:45 UA Nitrite Negative Last Edit by HUMBERTO Ames on 11/17/22 13:45 UA Urobilinogen 0.2 mg/dL Last Edit by HUMBERTO Ames on 11/17/22 13:4 5 UA Protein 100 mg/dL Last Edit by HUMBERTO Ames on 11/17/22 13:45 2+ Noam Martinez 11/17/22 13:45 UA pH 6.0 Last Edit by HUMBERTO Ames on 11/17/22 13:45 UA Blood 0 Ambrocio/uL Last Edit by HUMBERTO Ames on 11/17/22 13:45 UA Specific [place] 1.015 Last Edit by HUMBERTO Ames on 11/17/22 13: 45 UA Ketone Negative Last Edit by HUMBERTO Ames on 11/17/22 13:45 UA Bilirubin 0 mg/dL Last Edit by HUMBERTO Ames on 11/17/22 13:45 UA Glucose 0 mg/dL Last Edit by HUMBERTO Ames on 11/17/22 13:45 Results Reviewed Results Reviewed: Laboratory Last Values Urine pH (Auto) 6.0 11/17/22 13:43 Specific [place] (Auto) 1.015 11/17/22 13:43 Urine Protein (Auto) 100 mg/dL 11/17/22 13:43 Glucose (UA)(Auto) 0 mg/dL 11/17/22 13:43 Urine Ketones (Auto) Negative 11/17/22 13:43 Urine Blood (Auto) 0 Ambrocio/uL 11/17/22 13:43 Urine Nitrite (Auto) Negative 11/17/22 13:43 Urine Bilirubin (Auto) 0 mg/dL 11/17/22 13:43 Urine Urobilinogen (Auto) 0.2 mg/dL 11/17/22 13:43 Leukocyte Esterase (Auto) 0 Angelika/uL 11/17/22 13:43 Date of service: 11/12/22 EXAMINATION: CT ABDOMEN AND PELVIS WITHOUT CONTRAST CLINICAL INFORMATION: Lower abdominal pain and pressure with history of high blood pressure COMPARISON: Multiple prior CT scans of the abdomen pelvis most recently on 08/14/2021. FINDINGS: LUNG BASES: The visualized lung bases are unremarkable.? LIVER, GALLBLADDER, AND BILIARY TREE: The liver is normal in size, shape, and attenuation. No focal hepatic lesion or biliary ductal dilatation is present. The gallbladder contains multiple layering gallstones without obvious pericholecystic inflammatory changes.? PANCREAS: Unremarkable.? SPLEEN: Unremarkable.? ADRENAL GLANDS: Unremarkable. A tiny fat density left adrenal nodule is present consistent with a benign adenoma. KIDNEYS AND URETERS: The kidneys are normal in size, shape, and attenuation. No hydronephrosis, hydroureter, or calculi seen. Multiple benign benign Bosniak class I renal cysts are noted which require no additional imaging or follow-up. No solid renal masses are seen. There is nonspecific bilateral perinephric stranding. ? BLADDER: Unremarkable.? GASTROINTESTINAL TRACT: The small and large bowel are unremarkable. The appendix is unremarkable.? ABDOMINAL WALL: No significant hernia is appreciated.? LYMPH NODES: Some small iliac and inguinal lymph nodes are present but there is no retroperitoneal lymphadenopathy. VASCULAR: Marked calcific atherosclerotic changes are present in the abdominal aorta and iliofemoral vessels PELVIC VISCERA: The prostate and seminal vesicles are unremarkable.? OSSEOUS STRUCTURES: Degenerative changes are noted throughout the spine. No bony destructive lesions? IMPRESSION: A cause for the patient's lower abdominal pain and pressure has not been found. Incidental findings described above including cholelithiasis. ? Fleischner guidelines were followed. Assessment & Plan Assessment & Plan (1) BPH (benign prostatic hyperplasia): Code(s): N40.0 - Benign prostatic hyperplasia without lower urinary tract symptoms (2) Neurogenic bladder: Code(s): N31.9 - Neuromuscular dysfunction of bladder, unspecified (3) Bladder spasm: Code(s): N32.89 - Other specified disorders of bladder Plan Prescribed tamsulosin 0.4 mg at bedtime. He was instructed that the medication may cause dizziness or decrease in blood pressure. Any problems, to stop the me dication and let us know. Continue the bethanechol 50 mg twice a day. Refill provided. Follow up in 2 months with nurse practitioner to check any improvement in urinary symptoms and follow up PVR. Orders: Orders AMB Urinalysis Automated 11/17/22 Z13.9 - Encounter for screening, unspecified AMB Post Void Residual by ultrasound 11/17/22 N39.8 - Other specified disorders of urinary system Medications: New tamsulosin (Flomax) 0.4 mg PO BEDTIME 30 caps 1RF Refilled bethanechol chloride 50 mg PO BID 60 tabs 3RF 30 days Patient Instructions: The patient had an opportunity to ask questions regarding treatment plan. All questions were answered. Imaging, Laboratory studies and physical exam results were discussed and reviewed in detail. No major barriers to understanding were identified. The patient expressed understanding and agreement with the above treatment plan. The patient is aware they should contact our office by phone for worsening of their current condition or the appearance of new symptoms. Compliance is encouraged with any medications and followup testing that is ordered. It is a privilege to be allowed the opportunity to participate in the urologic care of your patient. If you have any questions or concerns regarding treatment for the above conditions please do not hesitate to contact me. The office telephone contact is [phone]. This note is constructed in part using voice recognition software. While every effort has been made to ensure accuracy senior media planner errors may have been included. Yours sincerely, Yoly Mae MD Coding Level of Care Code Est Pt Level 4 (16621) Diagnoses BPH (benign prostatic hyperplasia) N40.0 Neurogenic bladder N31.9 Bladder spasm N32.89
== END 2022-11-17 14:32 | disposition home or self-care (01) ==
PROVIDERS: Visit Provider Urology
DX: N40.0 Benign prostatic hyperplasia without lower urinary tract symptoms (principal); N31.9 Neuromuscular dysfunction of bladder, unspecified; N32.89 Other specified disorders of bladder
CPT/HCPCS: 99214

== ENCOUNTER → 2022-11-17 13:21 | Outpatient (BNVA) | payer MEDICARE, SELFPAY | PROVIDERS: Visit Provider Urology | DX: N40.0 Benign prostatic hyperplasia without lower urinary tract symptoms (principal); N31.9 Neuromuscular dysfunction of bladder, unspecified; N32.89 Other specified disorders of bladder | CPT/HCPCS: 99212 ==

== ENCOUNTER 2023-01-19 13:08 | Outpatient (AMB) | payer MEDICARE, SELFPAY ==
--- NOTE | 2023-01-19 13:21 | MHC.OFFVIS ---
Intake Intake Visit Reasons: 2 month pvr Intake Note: Patient presents today for follow up BPH Urology Medications: tamsulosin, bethanechol Blood Thinner: Aspirin PVR: 227ml's Material Inspector Required: No Accompanied by: Spouse Allergies No Known Allergies [No Known Allergies*] Allergy (Verified 01/19/23 14:00) Medication List - Last Reconciled 01/19/23 by LEOBARDO Pavon- acetaminophen 500 mg PO Q6H PRN albuterol sulfate 90 mcg/actuation inhalation amlodipine 1 tab PO DAILY aspirin (Adult Low Dose Aspirin) 81 mg PO DAILY atorvastatin 1 tab PO BEDTIME bethanechol chloride 50 mg PO BID 30 days fluconazole (Diflucan) 150 mg PO Q3D 2 doses fluconazole 400 mg (2 x 200 mg) PO DAILY furosemide 2 tabs PO DAILY gabapentin 300 mg PO TID gemfibrozil 600 mg PO BID hydralazine 100 mg PO BID insulin glargine (Lantus U-100 Insulin) 20 units subcut BID insulin lispro 30 units subcut TID insulin syringe-needle U-100 As directed metoprolol succinate ER 0.5 tabs PO DAILY olmesartan 1 tab PO DAILY omeprazole 1 cap PO DAILY spironolactone 1 tab PO DAILY tamsulosin 0.4 mg PO BEDTIME timolol maleate 0.5% 1 drp ophthalmic (eye) QAM HPI HPI Comments History of Present Illness Details John is a pleasant 77-year-old male patient of Dr. Claude GOLDSTEIN who was accompanied by his at today's visit. He has a past medical history of anemia, cataracts, Johnson esophagus, coronary artery disease, amputation of left great toe. Hep C, hyperlipidemia, CVA, chronic kidney disease stage 3, PVD, hypertension, hypercholesteremia, and diabetes. He presents to the office today for follow-up of his incomplete bladder emptying, recurrent urinary tract infections, and lower urinary tract symptoms. In discussion with the patient today reports to be doing and feeling well. Of note, patient was seen approximately [address] Hartman at which time he was started on 0.4 mg of Flomax daily and plan was to continue with bethanechol 50 mg b.i.d.. In office urinalysis results reviewed with the patient today. PVR- 227ml's. When asked he reports to be doing and feeling well. He denies urinary urgency, urinary frequency, incontinence, nocturia, hematuria, dysuria, foul smelling urine, changes to urinary stream, flank pain, fever, and or chills. Discussed at length potential causes and affects of incomplete bladder emptying. Discussed possible near future CIC given increase in PVR. However, currently patient wishes to continue with medication management as he reports be happy with current voiding parameters on bethanechol 50 mg b.i.d. and Flomax 0.4 mg daily. He otherwise offers no issues or concerns. PREVIOUS OFFICE NOTE: 11/17/2022-- The patient was last seen in the office by Dr. Up on 05/19/22. He is followed for lower urinary tract symptoms of incomplete bladder emptying. Past medical history is significant for diabetes, history of stroke, and chronic kidney disease. He is status post laser prostatectomy and SP tube placement in September 2021. He reports that he was having abdominal pain and some bladder pressure. He thought he may have UTI and presented to the emergency room. They did a CAT scan and checked his urine and told him he did not have UTI. I did review the CAT scan findings from 11/12/22. Evaluation today--UA -- No signs of infection. I discussed that he may be having some bladder spasms, otherwise I do not see any signs of UTI at this time. Plan: Prescribed tamsulosin 0.4 mg at bedtime. He was instructed that the medication may cause dizziness or decrease in blood pressure. Any problems, to stop the medication and let us know. Continue the bethanechol 50 mg twice a day. Refill provided. Follow up in 2 months with nurse practitioner to check any improvement in urinary symptoms and follow up PVR. [facility] Medical History Hx: UTI (urinary tract infection) Metabolic acidosis with normal anion gap and bicarbonate losses Metabolic acidosis with increased anion gap and accumulation of organic acids Anemia Difficult [place] catheter placement H/O cataract Adenomatous colon polyp Johnson esophagus Blind right eye CAD (coronary artery disease) Iron deficiency anemia due to chronic blood loss Acute kidney injury Amputation of left great toe Hepatitis C Hyperlipidemia CVA (cerebral vascular accident) Chronic kidney disease, stage 3 Peripheral vascular disease HTN (hypertension) Diabetes High cholesterol Surgical History History of ankle surgery History of esophagogastroduodenoscopy (EGD) Hx of colonoscopy Hx of cystoscopy Parotid mass (07/28/21) S/P CABG (coronary artery bypass graft) (~2006) S/P CABG x 2 S/P carotid endarterectomy (~08/2018) Family History Other CAD (coronary artery disease) Social History Household Members: Spouse Housing: House Are you a primary critical care nurse specialist to a significant other at home: No Do you presently have visiting nurse or other home services: No Alcohol intake: never Patient Tobacco Use Status: Former Tobacco user Quit Date: Tobacco use type: Cigarette e-Cigarette/Vaping Use: Never Used Substance Use Type: Marijuana Advance Directives Date on File: 04/14/21 service: No Current occupational status: retired Review of Systems Const Reports as per HPI Eyes Reports as per HPI Card Reports as per HPI GI Reports as per HPI Reports as per HPI Neuro Reports as per HPI Psych Reports no additional complaints Endo Reports as per HPI Physical Exam Const General: cooperative, healthy appearing, comfortable, no acute distress, well developed, alert and awake Orientation/consciousness: patient oriented x3 Limitations: ambulation with walker HEENT Head: Yes normal to inspection, Yes normocephalic and Yes atraumatic Ears: hearing grossly normal bilaterally Eyes General: appearance normal, both eyes and all related structures Neck Neck: Yes normal visual inspection and Yes trachea midline Chest Chest palpation & inspection: normal inspection of the chest Resp Effort & Inspection: normal respiratory effort and able to speak in complete sentences Cardio Rate: regular rate GI Inspection: Yes normal to inspection General: Yes no CVA tenderness Back/Spine/Pelvis Back: no CVA tenderness Skin General skin exam: no rashes or lesions noted Neuro General: patient oriented x3 Extrem General: Yes normal to inspection Psych Appearance: grossly normal and well kempt Mental Status: mental status grossly normal Speech and movement: Normal speech and movement present and Clear speech present Affect: normal affect Attitude: cooperative Thought process: Normal thought process present Thought content: Normal thought content present Insight: Fair insight present (Psych) Judgement: Fair judgement present (Psych) Office Procedures Post Void Residual Post Residual Void Post Void Residual (PVR): 227 [id number] Void Residual by ultrasound Results AMB Urinalysis, Automated UA Leukoctes 0 Angelika/uL Last Edit by Roland Ellis [facility] on 01/19/23 13:33 UA Nitrite Negative Last Edit by Roland Ellis, [facility] on 01/19/23 13:33 UA Urobilinogen 0.2 mg/dL Last Edit by Roland Ellis, [facility] on 01/19/23 13:33 UA Protein 30 mg/dL Last Edit by Roland Ellis, A on 01/19/23 13:33 1+ Roland Ellis 01/19/23 13:33 UA pH 6.0 Last Edit by Roland Ellis, [facility] on 01/19/23 13:33 UA Blood 0 Ambrocio/uL Last Edit by Roland Ellis, [facility] on 01/19/23 13:33 UA Specific [place] 1.015 Last Edit by Roland Ellis, [facility] on 01/19/23 13:33 UA Ketone Negative Last Edit by Roland Ellis, [facility] on 01/19/23 13:33 UA Bilirubin 0 mg/dL Last Edit by Roland Ellis, [facility] on 01/19/23 13:33 UA Glucose 0 mg/dL Last Edit by Roland Ellis, [facility] on 01/19/23 13:33 Results Reviewed Results Reviewed: Laboratory Last Values Urine pH (Auto) 6.0 01/19/23 13:22 Specific [place] (Auto) 1.015 01/19/23 13:22 Urine Protein (Auto) 30 mg/dL 01/19/23 13:22 Glucose (UA)(Auto) 0 mg/dL 01/19/23 13:22 Urine Ketones (Auto) Negative 01/19/23 13:22 Urine Blood (Auto) 0 Ambrocio/uL 01/19/23 13:22 Urine Nitrite (Auto) Negative 01/19/23 13:22 Urine Bilirubin (Auto) 0 mg/dL 01/19/23 13:22 Urine Urobilinogen (Auto) 0.2 mg/dL 01/19/23 13:22 Leukocyte Esterase (Auto) 0 Angelika/uL 01/19/23 13:22 Assessment & Plan Assessment & Plan (1) Neurogenic bladder: Code(s): N31.9 - Neuromuscular dysfunction of bladder, unspecified (2) Urinary retention with incomplete bladder emptying: Code(s): R33.9 - Retention of urine, unspecified Plan In office urinalysis results reviewed with the patient his today; as noted above. PVR-227ml's Discussed at length affects and potential causes for incomplete bladder emptying. Continue Flomax 0.4 mg daily and bethanechol 50 mg b.i.d. as discussed and prescribed. Discussed possible near future [facility]IC if PVRs continue to be elevated or increased. Patient denies any bothersome urinary issues or concerns at this time. Will obtain PSA. Follow-up in 3 months with lab to be completed prior; or sooner with any issues, concerns, and or questions. Orders: Orders AMB Post Void Residual by ultrasound 01/19/23 N39.3 - Stress incontinence (female) (male) Prostate Specific Antigen 3 Months N40.0 - Benign prostatic hyperplasia without lower urinary tract symptoms AMB Urinalysis Automated 01/19/23 N39.0 - Urinary tract infection, site not specified Coding Level of Care Code Est Pt Level 3 (71618) Diagnoses Neurogenic bladder N31.9 Urinary retention with incomplete bladder emptying R33.9 CPT Codes Post Residual Void - PVR CPT Code: 19807-Zrun Void Residual by ultrasound ([id number])
== END 2023-01-19 14:02 | disposition home or self-care (01) ==
PROVIDERS: PCP Internal Medicine; Visit Provider Nurse Practitioner Family
DX: N31.9 Neuromuscular dysfunction of bladder, unspecified (principal); R33.9 Retention of urine, unspecified
CPT/HCPCS: 99213

== ENCOUNTER → 2023-01-19 13:08 | Outpatient (BNVA) | payer MEDICARE, SELFPAY | PROVIDERS: PCP Internal Medicine; Visit Provider Nurse Practitioner Family | DX: N31.9 Neuromuscular dysfunction of bladder, unspecified (principal); R33.9 Retention of urine, unspecified; Z79.899 Other long term (current) drug therapy | CPT/HCPCS: 51798; 81003; 99212 ==

== ENCOUNTER 2023-03-08 12:57 | Outpatient (REF) | payer MEDICARE, SELFPAY ==
--- NOTE | ~2023-03-08 | US_ITS ---
EXAMINATION: US EXTRACRANIAL CAROTID DUPLEX, BILATERAL CLINICAL INFORMATION: Occlusion and stenosis of the carotid arteries, L endarterectomy COMPARISON: Carotid duplex on 07/20/22 TECHNIQUE: Real-time ultrasound and Doppler techniques (integrating B-mode 2-D vascular images, Doppler spectral analysis and color-flow Doppler imaging) were utilized to interrogate the extracranial carotid arteries, the vertebral arteries and proximal subclavian arteries bilaterally. The degree of stenosis is determined by criteria similar to NASCET. FINDINGS: Right Side: 1. There is occluded atherosclerotic plaque seen in the bifurcation/proximal ICA region. 2. The common carotid artery PSV proximally is 74 cm/s and distally 81 cm/s. 3. The proximal internal carotid artery velocities is occluded. 4. The proximal external carotid artery PSV is 442 cm/s. 5. The vertebral artery shows antegrade flow. 6. The subclavian artery waveforms are normal. Left Side: 1. There is moderate atherosclerotic plaque seen in the bifurcation/proximal ICA region. 2. The common carotid artery PSV proximally is 112 cm/s and distally 103 cm/s. 3. The proximal internal carotid artery velocities are 233 cm/s systolic and 58 cm/s diastolic. 4. The proximal external carotid artery PSV is 370 cm/s. 5. The vertebral artery shows antegrade flow. 6. The subclavian artery waveforms are normal. There is a 2.5cm right neck hypoechoic lymph node. US/US carotid duplex BI IMPRESSION: 1. RIGHT: ICA- occluded, chronic. 2. LEFT: Moderate, hemodynamically significant stenosis of the proximal left internal carotid artery corresponding to a 50-79% stenosis by velocity criteria. 3. There is no change in the category severity of disease when compared to the previous study dated ..
== END 2023-03-08 12:58 | disposition home or self-care (01) ==
LOC: HO.HMGCX 12:57
PROVIDERS: PCP Internal Medicine; Visit Provider Surgery Vascular Surgery
DX: I65.23 Occlusion and stenosis of bilateral carotid arteries (principal)
CPT/HCPCS: 93880

== ENCOUNTER 2023-03-15 12:43 | Outpatient (AMB) | payer MEDICARE, SELFPAY ==
--- NOTE | 2023-03-15 12:55 | A.OFFVIS_ITS ---
Intake Intake Visit Reasons: Follow Up 03/08 Carotid Intake Note: Pt here for carotid US on 03/08/23 w/ hx of carotid cancer mass removal and hx of left CEA 5?[id number] says that his legs are always ice cold all the time and he has continues pain .He says he has not tried any treatment for them Allergies No Known Allergies [No Known Allergies*] Allergy (Verified 01/19/23 14:00) HPI Follow Up 03/08 Carotid HPI Details Very pleasant 78-year-old gentleman known to me for routine surveillance follow-up regarding his carotids. 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 He now presents for routine surveillance for his carotids. His biggest complaint of the current time is his cold extremities. He seems to not tolerate these were shifts in temperature well. In terms of his carotid he remains asymptomatic [facility] Medical History Hx: UTI (urinary tract infection) Metabolic acidosis with normal anion gap and bicarbonate losses Metabolic acidosis with increased anion gap and accumulation of organic acids Anemia Difficult Marques catheter placement H/O cataract Adenomatous colon polyp Johnson esophagus Blind right eye CAD (coronary artery disease) Iron deficiency anemia due to chronic blood loss Acute kidney injury Amputation of left great toe Hepatitis C Hyperlipidemia CVA (cerebral vascular accident) Chronic kidney disease, stage 3 Peripheral vascular disease HTN (hypertension) Diabetes High cholesterol Surgical History S/P CABG x 2 Hx of cystoscopy Parotid mass (07/28/21) History of esophagogastroduodenoscopy (EGD) Hx of colonoscopy History of ankle surgery S/P carotid endarterectomy (~08/2018) S/P CABG (coronary artery bypass graft) (~2006) Family History Other CAD (coronary artery disease) Social History Household Members: Spouse Housing: House Are you a primary elderly caregiver to a significant other at home: No Do you presently have visiting nurse or other home services: No Alcohol intake: never Patient Tobacco Use Status: Former Tobacco user Quit Date: Tobacco use type: Cigarette e-Cigarette/Vaping Use: Never Used Substance Use Type: Marijuana Advance Directives Date on File: 04/14/21 service: No Current occupational status: retired Review of Systems Const All systems reviewed & are unremarkable except as noted in HPI and below Reports no additional complaints ENT Reports Normal hearing present Card Denies chest pain, Denies chest pain at rest, Denies chest pain with activity and Denies pedal edema Resp Denies cough GI Denies abdominal pain Musc Denies abnormal gait, Denies muscle cramps and Denies radiating pain into limb Skin/Breast Denies skin ulcer and Denies wounds Neuro Reports Normal hearing present and Denies abnormal gait Psych Reports no additional complaints Physical Exam Const General: cooperative, healthy appearing and comfortable Orientation/consciousness: oriented to person, oriented to place and oriented to time HEENT Head: Yes normal to inspection Neck Neck: Yes normal visual inspection Carotids: no bruits Chest Chest palpation & inspection: normal inspection of the chest Resp Effort & Inspection: normal respiratory effort and able to speak in complete sentences Auscultation: clear to auscultation bilaterally, no crackles, no rales, no rhonchi and no wheezes Cardio Other: Bilateral DP signals Rate: regular rate Rhythm: regular rhythm Heart sounds: S1 normal heart sound present and S2 normal heart sound present Bruits: no carotid bruits Peripheral pulses: Peripheral pulses 2+ throughout GI Inspection: Yes normal to inspection Skin Wounds: no wounds Hair: normal Neuro General: oriented to person, oriented to place and oriented to time Cranial nerves: Yes CN's II-XII intact bilaterally and Yes Normal hearing present Cognition (Neuro): normal cognition Motor exam (neuro): 5/5 motor strength present throughout Extrem Other: venous exam: No significant superficial varicosities or spider telangiectasias, minimal edema General: No clubbing, No cyanosis and No edema Psych Appearance: grossly normal Mental Status: mental status grossly normal Speech and movement: Normal speech and movement present Results Reviewed Results Reviewed: Carotid testing from 03/08/2023 demonstrates right-sided occlusion left side 50- 79 with a peak systolic of 233. Study is similar to previous study dated 07/20/2022. Written report and images were reviewed. Assessment & Plan Assessment & Plan (1) Bilateral carotid artery stenosis: Comment: 09/16/2018 - left carotid endarterectomy Code(s): I65.23 - Occlusion and stenosis of bilateral carotid arteries Plan: In short patient has asymptomatic carotid disease. We have reviewed signs and symptoms of a stroke. We also discussed risk factor modification inclusive a healthy diet low in cholesterol. The patient will follow up with us with surveillance ultrasound of the carotids 1 year. Should there be any changes or signs or symptoms of a stroke we will be happy to see them back sooner. Thank you for allowing us to participate in this patient's care. If there are any questions or concerns please do not hesitate to contact us. (2) PAD (peripheral artery disease): Code(s): I73.9 - Peripheral vascular disease, unspecified Plan: Patient does have diminished pulses of the lower extremities. Has I have taken the liberty of ordering noninvasive arterial testing to rule that out. I do believe there is neurogenic component of all of this as well. We will assess his arterial status and have him follow-up. Thank you for allowing us to assist in his care. If there are questions or concerns please do not hesitate to contact us. Orders: Orders US arterial duplex LE BI 1 Week I73.9 - Peripheral vascular disease, unspecified US carotid duplex BI 364 Days I65.23 - Occlusion and stenosis of bilateral carotid arteries Coding Level of Care Code Est Pt Level 4 (46807) Diagnoses Bilateral carotid artery stenosis I65.23 PAD (peripheral artery disease) I73.9
== END 2023-03-15 13:21 | disposition home or self-care (01) ==
PROVIDERS: PCP Internal Medicine; Visit Provider Surgery Vascular Surgery
DX: I65.23 Occlusion and stenosis of bilateral carotid arteries (principal); I73.9 Peripheral vascular disease, unspecified
CPT/HCPCS: 99213

== ENCOUNTER → 2023-03-15 12:43 | Outpatient (BNVA) | payer MEDICARE, SELFPAY | PROVIDERS: PCP Internal Medicine; Visit Provider Surgery Vascular Surgery | DX: I65.23 Occlusion and stenosis of bilateral carotid arteries (principal); I73.9 Peripheral vascular disease, unspecified | CPT/HCPCS: 99212 ==

== ENCOUNTER 2023-04-17 12:40 | Outpatient (REF) | payer MEDICARE, SELFPAY ==
--- NOTE | ~2023-04-17 | US_ITS ---
EXAMINATION: US arterial duplex LE BI, US GUY complete CLINICAL INFORMATION: Peripheral vascular disease, unspecified COMPARISON: 06/28/2020 TECHNIQUE: Ankle pulse volume recordings, ankle pressure measurements and ankle brachial indices were obtained of the lower extremity arterial system bilaterally in addition to duplex Doppler techniques with wave form analysis and measurement of velocities in the common femoral, profunda femoral, superficial femoral, popliteal, tibial and peroneal arteries. The study was performed only at rest. FINDINGS: RIGHT LE. THE RIGHT ANKLE-BRACHIAL INDEX IS: 0.75 noncompressibility/calcification, previously 0.94. >0.97-1.25 = normal - no significant arterial disease 0.75-0.96 = mild peripheral arterial disease 0.5-0.74 = moderate peripheral arterial disease <0.50 = severe peripheral arterial disease <0.30 = critical arterial disease 2. SEGMENTAL PRESSURES (mmHg): Ankle: PT 121, DP 127 DIRECT DUPLEX: Common femoral artery: 169.9 cm/s, Multiphasic, previously 275 cm/sec Profunda femoris artery: 42.3 cm/s, Multiphasic, previously 133 cm/sec Superficial femoral artery (proximal): 93.1 cm/s, Multiphasic, previously 177 cm/sec Superficial femoral artery (mid): 92.6 cm/s, Multiphasic, previously 123 cm/sec Superficial femoral artery (distal): 99 cm/s, biphasic, previously 134 cm/sec Proximal Popliteal artery: 122 cm/s, biphasic, previously 143 cm/sec Mid posterior tibial artery: 29.8 cm/s, biphasic, previously 33 cm/sec LEFT LE. THE LEFT ANKLE-BRACHIAL INDEX IS: 1.24 (higher of the DP/PT), previously 0.72. >0.97-1.25 = normal - no significant arterial disease 0.75-0.96 = mild peripheral arterial disease 0.5-0.74 = moderate peripheral arterial disease <0.50 = severe peripheral arterial disease <0.30 = critical arterial disease 2. SEGMENTAL PRESSURES: Ankle: PT 210, DP 202 DIRECT DUPLEX: Common femoral artery: 221.7 cm/s, Multiphasic, previously 212 cm/sec Profunda femoris artery: 90.4 cm/s, biphasic, previously 229 cm/s Superficial femoral artery (proximal): 75.4 cm/s, Multiphasic, previously 231 cm/sec Superficial femoral artery (mid): 139.9 cm/s, biphasic, previously 112 cm/sec Superficial femoral artery (distal): 46.8 cm/s, biphasic, previously 133 cm/sec Proximal Popliteal artery: 73.3 cm/s, biphasic, previously 57 cm/sec Mid posterior tibial artery: 50.2 cm/s, monophasic, previously 35 cm/sec US/US arterial duplex LE BI IMPRESSION: RIGHT LE. Decreased ankle brachial index consistent with mild peripheral arterial disease. 2. Mildly elevated velocity in the right common femoral artery suggestive of inflow disease, improved from prior. 3. Persistent significant drop-off in the velocities of the right tibial vessels. LEFT LE. Interval improvement in the left lower extremity ankle-brachial index. 2. Hemodynamically significant elevated velocity in the left common femoral artery, suggestive of inflow disease.
== END 2023-04-17 12:41 | disposition home or self-care (01) ==
LOC: HO.US 12:40
PROVIDERS: Absent Provider Nurse Practitioner Family; PCP Internal Medicine; Visit Provider Surgery Vascular Surgery
DX: Z12.5 Encounter for screening for malignant neoplasm of prostate (principal); I73.9 Peripheral vascular disease, unspecified; N40.0 Benign prostatic hyperplasia without lower urinary tract symptoms
CPT/HCPCS: 36415; 84153; 93923; 93925

== ENCOUNTER 2023-04-24 12:47 | Outpatient (AMB) | payer MEDICARE, SELFPAY ==
[2023-04-24 12:48] VITALS: BP 144/68; PULSE 78; O2SAT 97; BMI 34.1
--- NOTE | 2023-04-24 12:48 | MHC.OFFVIS ---
Intake Vital Signs 04/24/23 12:48 Height 5 ft 10 in Weight 238 lb BMI 34.1 BP 144/68 H Blood Pressure Location Lt brachial Position Sitting Pulse 78 Pulse Source Pulse Oximeter Pulse Oximetry (%) 97 Oxygen Delivery Method Room Air Intake Visit Reasons: Follow Up 04/17 Arterial Ultrasound Intake Note: Pt presents to the office today for a follow up Arterial US 04/17/23. Pt states he is feeling well. Pt states both of his legs are cold all of the time but denies any pain. Pt states he does have tingling in his legs but states he does have neuropathy. Pt denies any discoloration or swelling in his legs. Allergies No Known Allergies [No Known Allergies*] Allergy (Verified 04/24/23 12:48) HPI Follow Up 04/17 Arterial Ultrasound HPI Details Very pleasant 78-year-old gentleman well known to me for routine surveillance presents for follow-up regarding his carotids. 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 He now presents for routine evaluation of his lower extremities.. He does note occasional cold lower extremities. [facility] Medical History Hx: UTI (urinary tract infection) Metabolic acidosis with normal anion gap and bicarbonate losses Metabolic acidosis with increased anion gap and accumulation of organic acids Anemia Difficult [place] catheter placement H/O cataract Adenomatous colon polyp Johnson esophagus Blind right eye CAD (coronary artery disease) Iron deficiency anemia due to chronic blood loss Acute kidney injury Amputation of left great toe Hepatitis C Hyperlipidemia CVA (cerebral vascular accident) Chronic kidney disease, stage 3 Peripheral vascular disease HTN (hypertension) Diabetes High cholesterol Surgical History S/P CABG x 2 Hx of cystoscopy Parotid mass (07/28/21) History of esophagogastroduodenoscopy (EGD) Hx of colonoscopy History of ankle surgery S/P carotid endarterectomy (~08/2018) S/P CABG (coronary artery bypass graft) (~2006) Family History Other CAD (coronary artery disease) Social History Household Members: Spouse Housing: House Are you a primary farm or ranch animal caretaker to a significant other at home: No Do you presently have visiting nurse or other home services: No Alcohol intake: never Comment: blind right eye Patient Tobacco Use Status: Former Tobacco user Quit Date: Tobacco use type: Cigarette e-Cigarette/Vaping Use: Never Used Substance Use Type: Marijuana Advance Directives Date on File: 04/14/21 service: No Current occupational status: retired Review of Systems Const All systems reviewed & are unremarkable except as noted in HPI and below Reports no additional complaints ENT Reports Normal hearing present Card Denies chest pain, Denies chest pain at rest, Denies chest pain with activity and Denies pedal edema Resp Denies cough GI Denies abdominal pain Musc Denies abnormal gait, Denies muscle cramps and Denies radiating pain into limb Skin/Breast Denies skin ulcer and Denies wounds Neuro Reports Normal hearing present and Denies abnormal gait Psych Reports no additional complaints Physical Exam Vital Signs: Last Vital Signs Pulse 78 04/24/23 12:48 BP 144/68 H 04/24/23 12:48 Pulse Ox 97 04/24/23 12:48 Oxygen Delivery Method Room Air 04/24/23 12:48 BMI result Body Mass Index 34.1 Const General: cooperative, healthy appearing and comfortable Orientation/consciousness: oriented to person, oriented to place and oriented to time HEENT Head: Yes normal to inspection Neck Neck: Yes normal visual inspection Carotids: no bruits Chest Chest palpation & inspection: normal inspection of the chest Resp Effort & Inspection: normal respiratory effort and able to speak in complete sentences Auscultation: clear to auscultation bilaterally, no crackles, no rales, no rhonchi and no wheezes Cardio Rate: regular rate Rhythm: regular rhythm Heart sounds: S1 normal heart sound present and S2 normal heart sound present Bruits: no carotid bruits Peripheral pulses: Peripheral pulses 2+ throughout GI Inspection: Yes normal to inspection Skin Wounds: no wounds Hair: normal Neuro General: oriented to person, oriented to place and oriented to time Cranial nerves: Yes CN's II-XII intact bilaterally and Yes Normal hearing present Cognition (Neuro): normal cognition Motor exam (neuro): 5/5 motor strength present throughout Extrem Other: venous exam: No significant superficial varicosities or spider telangiectasias, minimal edema General: No clubbing, No cyanosis and No edema Psych Appearance: grossly normal Mental Status: mental status grossly normal Speech and movement: Normal speech and movement present Results Reviewed Results Reviewed: Noninvasive arterial testing on 04/17/2023 demonstrates GUY on the right of 0.75 and on the left of 1.24. On direct ultrasound it appears that this may be more SFA and distal disease. There is also concern of some disease in the left common femoral. Written report and images were reviewed. Carotid testing from 03/08/2023 confirms right-sided occlusion left side 50-79% stenosis with a peak systolic velocity of 233. Written report and images of this were reviewed as well Assessment & Plan Assessment & Plan (1) PAD (peripheral artery disease): Code(s): I73.9 - Peripheral vascular disease, unspecified Plan: in short patient appears to be relatively stable from a peripheral vascular standpoint. He does have some tibial disease but at the current time is relatively stable clinically. He is able to walk several blocks with no issues. At the current time would recommend conservative measures including aspirin and statin. He will be following up with Us regarding his carotids. Thank you for allowing us to assist in his care. (2) Bilateral carotid artery stenosis: Comment: 09/16/2018 - left carotid endarterectomy Code(s): I65.23 - Occlusion and stenosis of bilateral carotid arteries Plan: In short patient has asymptomatic carotid disease. We have reviewed signs and symptoms of a stroke. We also discussed risk factor modification inclusive a healthy diet low in cholesterol. The patient will follow up with us with surveillance ultrasound of the carotids one year. Should there be any changes or signs or symptoms of a stroke we will be happy to see them back sooner. Thank you for allowing us to participate in this patient's care. If there are any questions or concerns please do not hesitate to contact us. Orders: Orders US carotid duplex BI 364 Days I65.23 - Occlusion and stenosis of bilateral carotid arteries Coding Level of Care Code Est Pt Level 4 (65142) Diagnoses PAD (peripheral artery disease) I73.9 Bilateral carotid artery stenosis I65.23
== END 2023-04-24 13:19 | disposition home or self-care (01) ==
PROVIDERS: PCP Internal Medicine; Visit Provider Surgery Vascular Surgery
DX: I73.9 Peripheral vascular disease, unspecified (principal); I65.23 Occlusion and stenosis of bilateral carotid arteries
CPT/HCPCS: 99213

== ENCOUNTER → 2023-04-24 12:47 | Outpatient (BNVA) | payer MEDICARE, SELFPAY | PROVIDERS: PCP Internal Medicine; Visit Provider Surgery Vascular Surgery | DX: I73.9 Peripheral vascular disease, unspecified (principal); I65.23 Occlusion and stenosis of bilateral carotid arteries | CPT/HCPCS: 99212 ==

== ENCOUNTER 2023-04-27 12:45 | Outpatient (AMB) | payer MEDICARE, SELFPAY ==
--- NOTE | 2023-04-27 13:15 | A.OFFVIS_ITS ---
Intake Intake Visit Reasons: 3m/PSA/PVR Intake Note: Patient presents today for follow up BPH Urology Medications: tamsulosin, bethanechol Blood Thinner: Aspirin PVR: Tumblers Supervisor Required: No Accompanied by: Self / Same As Patient Allergies No Known Allergies [No Known Allergies*] Allergy (Verified 04/28/23 22:50) Medication List - Last Reconciled 04/28/23 by FAROOQ Pavon acetaminophen 500 mg PO Q6H PRN aspirin (Adult Low Dose Aspirin) 81 mg PO DAILY atorvastatin 1 tab PO BEDTIME bethanechol chloride 50 mg PO BID 30 days bumetanide 1 mg PO DAILY cholecalciferol (vitamin D3) 25 mcg PO DAILY fluconazole (Diflucan) 150 mg PO Q3D 2 doses gemfibrozil 600 mg PO BID hydralazine 100 mg PO BID insulin glargine (Lantus U-100 Insulin) 20 units subcut BID insulin lispro 30 units subcut TID insulin syringe-needle U-100 As directed metoprolol succinate ER 0.5 tabs PO DAILY nifedipine ER 120 mg PO QDAY olmesartan 1 tab PO DAILY omeprazole 1 cap PO DAILY spironolactone 50 mg PO DAILY tamsulosin 0.4 mg PO BEDTIME timolol maleate 0.5% 1 drp ophthalmic (eye) QAM HPI HPI Comments History of Present Illness Details John is a pleasant 78-year-old male patient of Dr. lCaude GOLDSTEIN who is accompanied by his at today's visit. He has a past medical history of anemia, cataracts, Johnsno esophagus, coronary artery disease, amputation of left great toe. Hep C, hyperlipidemia, CVA, chronic kidney disease stage 3, PVD, hypertension, hypercholesteremia, and diabetes. Patient status post laser prostatectomy and SP tube placement with Dr. Up September of 2021. However, suprapubic tube has since been removed and the patient has been able to urinate independently. He presents to the office today for follow-up of his incomplete bladder emptying, recurrent urinary tract infections, and lower urinary tract symptoms. In discussion with the patient today reports to be doing and feeling well. He reports compliance with 0.4 mg of Flomax daily as well as bethanechol 50 mg b.i.d and is happy with his current voiding parameters. In office urinalysis results reviewed with the patient today. PVR- 125ml's. He denies urinary urgency, urinary frequency, incontinence, nocturia, hematuria, dysuria, foul smelling urine, changes to urinary stream, flank pain, fever, and or chills. Discussed at length potential causes and affects of incomplete bladder emptying. Discussed borderline high PVR will continue to monitor. He otherwise offers no issues or concerns. Recent PSA results reviewed with the patient his today. 04/21--PSA--1.7 PFSH Medical History Hx: UTI (urinary tract infection) Metabolic acidosis with normal anion gap and bicarbonate losses Metabolic acidosis with increased anion gap and accumulation of organic acids Anemia Difficult [place] catheter placement H/O cataract Adenomatous colon polyp Johnson esophagus Blind right eye CAD (coronary artery disease) Iron deficiency anemia due to chronic blood loss Acute kidney injury Amputation of left great toe Hepatitis C Hyperlipidemia CVA (cerebral vascular accident) Chronic kidney disease, stage 3 Peripheral vascular disease HTN (hypertension) Diabetes High cholesterol Surgical History S/P CABG x 2 Hx of cystoscopy Parotid mass (07/28/21) History of esophagogastroduodenoscopy (EGD) Hx of colonoscopy History of ankle surgery S/P carotid endarterectomy (~08/2018) S/P CABG (coronary artery bypass graft) (~2006) Family History Other CAD (coronary artery disease) Social History Household Members: Spouse Housing: House Are you a primary career guidance counselor to a significant other at home: No Do you presently have visiting nurse or other home services: No Alcohol intake: never Comment: blind right eye Patient Tobacco Use Status: Former Tobacco user Quit Date: Tobacco use type: Cigarette e-Cigarette/Vaping Use: Never Used Substance Use Type: Marijuana Advance Directives Date on File: 04/14/21 service: No Current occupational status: retired Review of Systems Const Reports as per HPI Eyes Reports as per HPI Card Reports as per HPI GI Reports as per HPI Reports as per HPI Neuro Reports as per HPI Psych Reports no additional complaints Endo Reports as per HPI Physical Exam Const General: cooperative, healthy appearing, comfortable, no acute distress, well developed, alert and awake Orientation/consciousness: patient oriented x3 Limitations: ambulation with walker HEENT Head: Yes normal to inspection, Yes normocephalic and Yes atraumatic Ears: hearing grossly normal bilaterally Eyes General: appearance normal, both eyes and all related structures Neck Neck: Yes normal visual inspection and Yes trachea midline Chest Chest palpation & inspection: normal inspection of the chest Resp Effort & Inspection: normal respiratory effort and able to speak in complete sentences Cardio Rate: regular rate GI Inspection: Yes normal to inspection General: Yes no CVA tenderness Back/Spine/Pelvis Back: no CVA tenderness Skin General skin exam: no rashes or lesions noted Neuro General: patient oriented x3 Extrem General: Yes normal to inspection Psych Appearance: grossly normal and well kempt Mental Status: mental status grossly normal Speech and movement: Normal speech and movement present and Clear speech present Affect: normal affect Attitude: cooperative Thought process: Normal thought process present Thought content: Normal thought content present Insight: Fair insight present (Psych) Judgement: Fair judgement present (Psych) Office Procedures Post Void Residual Post Residual Void Post Void Residual (PVR): 125 [id number]-[id number] Void Residual by ultrasound Results AMB Urinalysis, Automated UA Leukoctes 0 Angelika/uL Last Edit by [employer] on 04/27/23 13:32 UA Nitrite Negative Last Edit by [employer] on 04/27/23 13:32 UA Urobilinogen 0.2 mg/dL Last Edit by [employer] on 04/27/23 13:32 UA Protein 100 mg/dL Last Edit by [employer] on 04/27/23 13:32 UA pH 6.0 Last Edit by [employer] on 04/27/23 13:32 UA Blood 0 Ambrocio/uL Last Edit by [employer] on 04/27/23 13:32 UA Specific [place] 1.015 Last Edit by [employer] on 04/27/23 13:32 UA Ketone Negative Last Edit by [employer] on 04/27/23 13:32 UA Bilirubin 0 mg/dL Last Edit by [employer] on 04/27/23 13:32 UA Glucose 0 mg/dL Last Edit by [employer] on 12/29/23 13:32 Results Reviewed Results Reviewed: Laboratory Last Values Urine pH (Auto) 6.0 04/27/23 13:18 Specific [place] (Auto) 1.015 04/27/23 13:18 Urine Protein (Auto) 100 mg/dL 04/27/23 13:18 Glucose (UA)(Auto) 0 mg/dL 04/27/23 13:18 Urine Ketones (Auto) Negative 04/27/23 13:18 Urine Blood (Auto) 0 Ambrocio/uL 04/27/23 13:18 Urine Nitrite (Auto) Negative 04/27/23 13:18 Urine Bilirubin (Auto) 0 mg/dL 04/27/23 13:18 Urine Urobilinogen (Auto) 0.2 mg/dL 04/27/23 13:18 Leukocyte Esterase (Auto) 0 Angelika/uL 04/27/23 13:18 Assessment & Plan Assessment & Plan (1) Neurogenic bladder: Code(s): N31.9 - Neuromuscular dysfunction of bladder, unspecified (2) Urinary retention with incomplete bladder emptying: Code(s): R33.9 - Retention of urine, unspecified (3) BPH w urinary obs/LUTS: Code(s): N40.1 - Benign prostatic hyperplasia with lower urinary tract symptoms; N13.8 - Other obstructive and reflux uropathy Plan In office urinalysis results reviewed with the patient his today; as noted above. PVR-125ml's Discussed at length affects and potential causes for incomplete bladder emptying. Discussed borderline increased PVR; will continue to monitor and trend is decreased since last office visit Continue Flomax 0.4 mg daily and bethanechol 50 mg b.i.d. as discussed and prescribed. Discussed possible near future CIC if PVRs continue to be elevated or increased. Patient denies any bothersome urinary issues or concerns at this time. Recent PSA results reviewed with the patient and his today; as noted above Will obtain PSA in 6 months Follow-up in 6 months with PVR and lab to be completed prior; or sooner with any issues, concerns, and or questions. Orders: Orders AMB Urinalysis Automated 04/27/23 Z13.9 - Encounter for screening, unspecified AMB Post Void Residual by ultrasound 04/27/23 R33.8 - Other retention of urine Prostate Specific Antigen 6 Months N13.8 - Other obstructive and reflux uropathy, N31.9 - Neuromuscular dysfunction of bladder, unspecified, N40.1 - Benign prostatic hyperplasia with lower urinary tract symptoms, R33.9 - Retention of urine, unspecified Patient Instructions: The patient had an opportunity to ask questions regarding the treatment plan. All questions were answered. Physical exam, labs, and imaging were discussed and reviewed in detail. As well as risks, benefits, and discussion of treatment choices. No major barriers to understanding were identified. The patient expressed understanding and agreement with the above treatment plan. The patient was made aware they should contact our office by phone for worsening of their current condition, the appearance of new symptoms, or with any questions or concerns. Compliance is encouraged with any medications and follow up testing that is ordered. It is a privilege to be allowed the opportunity to participate in? your urological care.? Again, if you have any questions or concerns If you have any questions or concerns please do not hesitate to contact me. The office is [phone]. This note is constructed using voice recognition software. While every effort has been made to ensure accuracy warper creeler errors may have been included. Yours sincerely, AMITA Pavon Coding Level of Care Code Est Pt Level 3 (08928) Diagnoses Neurogenic bladder N31.9 Urinary retention with incomplete bladder emptying R33.9 BPH w urinary obs/LUTS N40.1; N13.8 CPT Codes Post Residual Void - PVR CPT Code: 57715-Iwrv Void Residual by ultrasound ([id number])
== END 2023-04-27 13:42 | disposition home or self-care (01) ==
PROVIDERS: PCP Internal Medicine; Visit Provider Nurse Practitioner Family
DX: N31.9 Neuromuscular dysfunction of bladder, unspecified (principal); R33.9 Retention of urine, unspecified; N40.1 Benign prostatic hyperplasia with lower urinary tract symptoms; N13.8 Other obstructive and reflux uropathy
CPT/HCPCS: 99213

== ENCOUNTER → 2023-04-27 12:45 | Outpatient (BNVA) | payer MEDICARE, SELFPAY | PROVIDERS: PCP Internal Medicine; Visit Provider Nurse Practitioner Family | DX: N40.1 Benign prostatic hyperplasia with lower urinary tract symptoms (principal); N13.8 Other obstructive and reflux uropathy; R33.8 Other retention of urine; N31.9 Neuromuscular dysfunction of bladder, unspecified | CPT/HCPCS: 51798; 81003; 99212 ==

== ENCOUNTER 2023-10-15 10:40 | Outpatient (REF) | payer MEDICARE, SELFPAY ==
[2023-10-15 12:34] LABS: Prostate Specific Antigen 1.61 ng/mL (<0.05-4.0)
== END 2023-10-15 10:41 | disposition home or self-care (01) ==
LOC: HO.LAB 10:40
PROVIDERS: PCP Internal Medicine; Visit Provider Nurse Practitioner Family
DX: N31.9 Neuromuscular dysfunction of bladder, unspecified (principal); R33.9 Retention of urine, unspecified; N40.1 Benign prostatic hyperplasia with lower urinary tract symptoms; N13.8 Other obstructive and reflux uropathy; Z12.5 Encounter for screening for malignant neoplasm of prostate
CPT/HCPCS: 36415; 84153

== ENCOUNTER 2023-10-23 13:12 | Outpatient (AMB) | payer MEDICARE, SELFPAY ==
--- NOTE | 2023-10-23 13:16 | A.OFFVIS_ITS ---
Intake Visit Reasons: 6m follow up/PSA/PVR(set) Intake Note: Patient presents today for follow up BPH Urology Medications: tamsulosin, bethanechol Blood Thinner: Aspirin PVR: 74ml Gauger Chief Delivery Required: No Accompanied by: Self / Same As Patient Allergies No Known Allergies [No Known Allergies*] Allergy (Verified 10/23/23 13:51) Medication List - Last Reconciled 10/23/23 by LEOBARDO Pavon-JEREMIAH acetaminophen 500 mg PO Q6H PRN aspirin (Adult Low Dose Aspirin) 81 mg PO DAILY atorvastatin 1 tab PO BEDTIME bethanechol chloride 50 mg PO BID bumetanide 1 mg PO DAILY cholecalciferol (vitamin D3) 25 mcg PO DAILY fluconazole (Diflucan) 150 mg PO Q3D 2 doses gemfibrozil 600 mg PO BID hydralazine 100 mg PO BID insulin glargine (Lantus U-100 Insulin) 20 units subcut BID insulin lispro 30 units subcut TID insulin syringe-needle U-100 As directed metoprolol succinate ER 0.5 tabs PO DAILY nifedipine ER 120 mg PO QDAY olmesartan 1 tab PO DAILY omeprazole 1 cap PO DAILY spironolactone 50 mg PO DAILY tamsulosin 0.4 mg PO BEDTIME timolol maleate 0.5% 1 drp ophthalmic (eye) QAM HPI Comments Details: John is a pleasant 78-year-old male patient of Dr. Claude GOLDSTEIN who is accompanied by his at today's visit. He has a past medical history of anemia, cataracts, Johnson esophagus, coronary artery disease, amputation of left great toe, CVA, Hep C, hyperlipidemia, CVA, chronic kidney disease stage 3, PVD, hypertension, hypercholesteremia, and diabetes. Patient status post laser prostatectomy and SP tube placement with Dr. Up September of 2021. However, suprapubic tube has since been removed and the patient has been able to urinate independently. He presents to the office today for follow-up of his incomplete bladder emptying, recurrent urinary tract infections, and lower urinary tract symptoms. In discussion with the patient today reports to be doing and feeling well. He reports compliance with 0.4 mg of Flomax daily as well as bethanechol 50 mg b.i.d and is happy with his current voiding parameters. In office urinalysis results reviewed with the patient today 2+ proteinuria however patient follows up with Dr. Pritchards for Nephrology. Original PVR was approximately 304 mL however patient was able to double void and 2nd PVR was 73 mL. PVR- 125ml's. He currently denies any bothersome urinary issues or concerns. He denies urinary urgency, urinary frequency, incontinence, nocturia, hematuria, dysuria, foul smelling urine, changes to urinary stream, flank pain, fever, and or chills. Discussed at length potential causes and affects of incomplete bladder emptying. He discusses following up with his top carrier and last A1c was 6.2. He otherwise offers no issues or concerns. Recent PSA results reviewed with the patient his today. PSAs: 04/21 1.7, 10/21 1.6 PFSH Medical History Hx: UTI (urinary tract infection) Metabolic acidosis with normal anion gap and bicarbonate losses Metabolic acidosis with increased anion gap and accumulation of organic acids Anemia Difficult [place] catheter placement H/O cataract Adenomatous colon polyp Johnson esophagus Blind right eye CAD (coronary artery disease) Iron deficiency anemia due to chronic blood loss Acute kidney injury Amputation of left great toe Hepatitis C Hyperlipidemia CVA (cerebral vascular accident) Chronic kidney disease, stage 3 Peripheral vascular disease HTN (hypertension) Diabetes High cholesterol Surgical History S/P CABG x 2 Hx of cystoscopy Parotid mass (07/28/21) History of esophagogastroduodenoscopy (EGD) Hx of colonoscopy History of ankle surgery S/P carotid endarterectomy (~08/2018) S/P CABG (coronary artery bypass graft) (~2006) Family History Other CAD (coronary artery disease) Social History Household Members: Spouse Housing: House Are you a primary social worker palliative care to a significant other at home: No Do you presently have visiting nurse or other home services: No Alcohol intake: never Comment: blind right eye Patient Tobacco Use Status: Former Tobacco user Tobacco use type: Cigarette e-Cigarette/Vaping Use: Never Used Substance Use Type: Marijuana Advance Directives Date on File: 04/14/21 service: No Current occupational status: retired Review of Systems Const Reports as per [facility] Eyes Reports as per HPI Card Reports as per HPI GI Reports as per [facility] Reports as per [facility] Neuro Reports as per HPI Psych Reports no additional complaints Endo Reports as per [facility] Physical Exam Const General: cooperative, healthy appearing, comfortable, no acute distress, well developed, alert and awake Orientation/consciousness: patient oriented x3 Limitations: ambulation with cane HEENT Head: Yes normal to inspection, Yes normocephalic and Yes atraumatic Ears: hearing grossly normal bilaterally Eyes General: appearance normal, both eyes and all related structures Neck Neck: Yes normal visual inspection and Yes trachea midline Chest Chest palpation & inspection: normal inspection of the chest Resp Effort & Inspection: normal respiratory effort and able to speak in complete sentences Cardio Rate: regular rate GI Inspection: Yes normal to inspection General: Yes no CVA tenderness Back/Spine/Pelvis Back: no CVA tenderness Skin General skin exam: no rashes or lesions noted Neuro General: patient oriented x3 Extrem General: Yes normal to inspection Psych Appearance: grossly normal and well kempt Mental Status: mental status grossly normal Speech and movement: Normal speech and movement present and Clear speech present Affect: normal affect Attitude: cooperative Thought process: Normal thought process present Thought content: Normal thought content present Insight: Fair insight present (Psych) Judgement: Fair judgement present (Psych) Office Procedures Post Void Residual Post Residual Void Post Void Residual (PVR): 74 [id number] Void Residual by ultrasound Results AMB Urinalysis, Automated UA Leukoctes 0 Angelika/uL Last Edit by [employer] Josue on 10/23/23 13:34 UA Nitrite Negative Last Edit by Jose AlfredoBasisnote [employer] Josue on 10/23/23 13:34 UA Urobilinogen 0.2 mg/dL Last Edit by [employer] on 10/23/23 13:34 UA Protein 100 mg/dL Last Edit by [employer] on 10/23/23 13:34 UA pH 6.0 Last Edit by [employer]elt AngelesArtabase on 10/23/23 13:34 UA Blood 0 Ambrocio/uL Last Edit by Micropelt Josue on 10/23/23 13:34 UA Specific [place] 1.010 Last Edit by Micropelt Josue on 10/23/23 13:34 UA Ketone Negative Last Edit by Faviola Salas on 10/23/23 13:34 UA Bilirubin 0 mg/dL Last Edit by Faviola Salas on 10/23/23 13:34 UA Glucose 0 mg/dL Last Edit by Faviola Salas on 10/23/23 13:34 Results Reviewed Results Reviewed: Laboratory Last Values Urine pH (Auto) 6.0 10/23/23 13:22 Specific [place] (Auto) 1.010 10/23/23 13:22 Urine Protein (Auto) 100 mg/dL 10/23/23 13:22 Glucose (UA)(Auto) 0 mg/dL 10/23/23 13:22 Urine Ketones (Auto) Negative 10/23/23 13:22 Urine Blood (Auto) 0 Ambrocio/uL 10/23/23 13:22 Urine Nitrite (Auto) Negative 10/23/23 13:22 Urine Bilirubin (Auto) 0 mg/dL 10/23/23 13:22 Urine Urobilinogen (Auto) 0.2 mg/dL 10/23/23 13:22 Leukocyte Esterase (Auto) 0 Angelika/uL 10/23/23 13:22 Assessment & Plan Assessment & Plan (1) Neurogenic bladder: Code(s): N31.9 - Neuromuscular dysfunction of bladder, unspecified Category: Medical (2) BPH (benign prostatic hyperplasia): Code(s): N40.0 - Benign prostatic hyperplasia without lower urinary tract symptoms Category: Medical (3) Bladder spasm: Code(s): N32.89 - Other specified disorders of bladder Category: Medical (4) Urinary retention with incomplete bladder emptying: Code(s): R33.9 - Retention of urine, unspecified Category: Medical Plan In office urinalysis results reviewed with the patient today; as noted above. PVR 74 mL. Continue bethanechol and Flomax as prescribed. Recent PSA results reviewed with the patient and his today. Continue to follow-up with nephrology for proteinuria. Patient currently denies any bothersome urinary issues or concerns. He reports be happy with current voiding parameters. Discussed continuing to double void to assist with incomplete bladder emptying. Follow-up in 6 months with PVR; or sooner with any issues, concerns, and or questions. Orders: Orders AMB Urinalysis Automated Today Z13.9 - Encounter for screening, unspecified AMB Post Void Residual by ultrasound Today N40.0 - Benign prostatic hyperplasia without lower urinary tract symptoms Medications: Changed From bethanechol chloride 50 mg PO BID 180 tabs 1RF To bethanechol chloride 50 mg PO BID 90 days 180 tabs 3RF From tamsulosin 0.4 mg PO BEDTIME 90 caps 1RF To tamsulosin 0.4 mg PO BEDTIME 90 days 90 caps 2RF Patient Instructions: The patient had an opportunity to ask questions regarding the treatment plan. All questions were answered. Physical exam, labs, and imaging were discussed and reviewed in detail. As well as risks, benefits, and discussion of treatment choices. No major barriers to understanding were identified. The patient expressed understanding and agreement with the above treatment plan. The patient was made aware they should contact our office by phone for worsening of their current condition, the appearance of new symptoms, or with any questions or concerns. Compliance is encouraged with any medications and follow up testing that is ordered. It is a privilege to be allowed the opportunity to participate in? your urological care.? Again, if you have any questions or concerns If you have any questions or concerns please do not hesitate to contact me. The office is [phone]. This note is constructed using voice recognition software. While every effort has been made to ensure accuracy emergency veterinary assistant errors may have been included. Yours sincerely, FAROOQ Pavon Coding Level of Care Code Est Pt Level 3 (69164) Complex EM visit Add On G2211 Diagnoses Neurogenic bladder N31.9 BPH (benign prostatic hyperplasia) N40.0 Bladder spasm N32.89 Urinary retention with incomplete bladder emptying R33.9 CPT Codes Post Residual Void - PVR CPT Code: 61723-Gppx Void Residual by ultrasound ([id number])
== END 2023-10-23 13:54 | disposition home or self-care (01) ==
PROVIDERS: PCP Internal Medicine; Visit Provider Nurse Practitioner Family
DX: N31.9 Neuromuscular dysfunction of bladder, unspecified (principal); N40.0 Benign prostatic hyperplasia without lower urinary tract symptoms; N32.89 Other specified disorders of bladder; R33.9 Retention of urine, unspecified; Z13.9 Encounter for screening, unspecified
CPT/HCPCS: 99213; G2211

== ENCOUNTER → 2023-10-23 13:12 | Outpatient (BNVA) | payer MEDICARE, SELFPAY | PROVIDERS: PCP Internal Medicine; Visit Provider Nurse Practitioner Family | DX: R33.9 Retention of urine, unspecified (principal); N32.89 Other specified disorders of bladder; N31.9 Neuromuscular dysfunction of bladder, unspecified; N40.0 Benign prostatic hyperplasia without lower urinary tract symptoms | CPT/HCPCS: 51798; 81003; 99212 ==

== ENCOUNTER 2024-03-11 12:30 | Outpatient (REF) | payer MEDICARE, SELFPAY ==
--- NOTE | ~2024-03-11 | US_ITS ---
EXAMINATION: US EXTRACRANIAL CAROTID DUPLEX, BILATERAL CLINICAL INFORMATION: Bilateral carotid occlusions. COMPARISON: Carotid ultrasound 03/08/2023. TECHNIQUE: Real-time ultrasound and Doppler techniques (integrating B-mode 2-D vascular images, Doppler spectral analysis and color-flow Doppler imaging) were utilized to interrogate the extracranial carotid arteries, the vertebral arteries and proximal subclavian arteries bilaterally. The degree of stenosis is determined by criteria similar to NASCET. FINDINGS: RIGHT SIDE: 1. There is severe atherosclerotic plaque seen in the bifurcation/proximal ICA region. 2. The common carotid artery PSV proximally is 77 cm/s and distally 69 cm/s. 3. The right internal carotid artery remains chronically occluded. 4. The proximal external carotid artery PSV is 454 cm/s. 5. The vertebral artery shows antegrade flow. 6. The subclavian artery waveforms are normal. 7. Again seen is a 2.4 x 1.5 x 1.5 cm mass in the right neck consistent with an abnormal lymph node which appears minimally smaller when compared to the 07/20/2022 study. This lymph node is not normal in appearance without a normal lefty and there are punctate areas of increased echogenicity. LEFT SIDE: 1. There is mild atherosclerotic plaque seen in the bifurcation/proximal ICA region. 2. The common carotid artery PSV proximally is 141 cm/s and distally 126 cm/s. 3. The proximal internal carotid artery velocities are 300 cm/s systolic and 76 cm/s diastolic. 4. The proximal external carotid artery PSV is 366 cm/s. 5. The vertebral artery shows antegrade flow. 6. The subclavian artery waveforms are normal. US/US carotid duplex BI IMPRESSION: Right: Chronically occluded right internal carotid artery. Elevated velocity in the right ECA may be due to increased flow secondary to ICA occlusion. Abnormal right-sided lymph node. If clinically indicated, ultrasound-guided biopsy could be performed. Left: Hemodynamically significant stenosis of the proximal left internal carotid artery corresponding to a 50-79% stenosis by velocity criteria. There is a left ECA stenosis. Electronically signed by: Blayne Caal MD 03/17/2024 08:11 PM [facility]
== END 2024-03-11 12:31 | disposition home or self-care (01) ==
LOC: HO.US 12:30
PROVIDERS: PCP Internal Medicine; Visit Provider Surgery Vascular Surgery
DX: I65.23 Occlusion and stenosis of bilateral carotid arteries (principal)
CPT/HCPCS: 93880

== ENCOUNTER 2024-03-18 13:44 | Outpatient (AMB) | payer MEDICARE, SELFPAY ==
--- NOTE | 2024-03-18 13:46 | MHC.OFFVIS ---
Vital Signs 03/18/24 13:47 Height 5 ft 10 in BP 100/48 L Blood Pressure Location Rt brachial Position Sitting Intake Visit Reasons: 1yr follow up s/p Carotid 03/11/24 Intake Note: 1 yr follow up deyanira US 03/11/24. Pt states he has numbness over treated area of parotid surgery at [facility]. States the numbness radiates into from Left neck to left chest. Accompanied by: Spouse Allergies No Known Allergies [No Known Allergies*] Allergy (Verified 03/18/24 13:56) HPI HPI 1yr follow up s/p Carotid 03/11/24: Details: Very pleasant 79-year-old gentleman who has been following me for routine surveillance regarding his carotids. He had originally undergone carotid endarterectomy on the left side back in August of 2018. Subsequently in June of 2021 he underwent a left radical neck dissection with parotidectomy at [facility]. His major complaint is increasing numbness in that left neck. He reports that he had no postoperative follow-up at [facility]. He had stitches removed by a nurse and never saw a physician or oncologist postprocedure. He now presents to us for routine carotid surveillance follow-up. [facility] Medical History Hx: UTI (urinary tract infection) Metabolic acidosis with normal anion gap and bicarbonate losses Metabolic acidosis with increased anion gap and accumulation of organic acids Anemia Difficult Marques catheter placement H/O cataract Adenomatous colon polyp Johnson esophagus Blind right eye CAD (coronary artery disease) Iron deficiency anemia due to chronic blood loss Acute kidney injury Amputation of left great toe Hepatitis C Hyperlipidemia CVA (cerebral vascular accident) Chronic kidney disease, stage 3 Peripheral vascular disease HTN (hypertension) Diabetes High cholesterol Surgical History S/P CABG x 2 Hx of cystoscopy Parotid mass (07/28/21) History of esophagogastroduodenoscopy (EGD) Hx of colonoscopy History of ankle surgery S/P carotid endarterectomy (~08/2018) S/P CABG (coronary artery bypass graft) (~2006) Family History Other CAD (coronary artery disease) Social History Household Members: Spouse Housing: House Are you a primary intensive care anaesthetist to a significant other at home: No Do you presently have visiting nurse or other home services: No Alcohol intake: never Comment: blind right eye Patient Tobacco Use Status: Former Tobacco user Tobacco use type: Cigarette e-Cigarette/Vaping Use: Never Used Substance Use Type: Marijuana Advance Directives Date on File: 04/14/21 service: No Current occupational status: retired Review of Systems Const All systems reviewed & are unremarkable except as noted in HPI and below Reports no additional complaints ENT Reports Normal hearing present Card Denies chest pain, Denies chest pain at rest, Denies chest pain with activity and Denies pedal edema Resp Denies cough GI Denies abdominal pain Musc Denies abnormal gait, Denies muscle cramps and Denies radiating pain into limb Skin/Breast Denies skin ulcer and Denies wounds Neuro Reports Normal hearing present and Denies abnormal gait Psych Reports no additional complaints Physical Exam Vital Signs: Last Vital Signs BP 100/48 L 03/18/24 13:47 Const General: cooperative, healthy appearing and comfortable Orientation/consciousness: oriented to person, oriented to place and oriented to time HEENT Head: Yes normal to inspection Neck Other: Left neck incision is all well healed Neck: Yes normal visual inspection Carotids: no bruits Chest Chest palpation & inspection: normal inspection of the chest Resp Effort & Inspection: normal respiratory effort and able to speak in complete sentences Auscultation: clear to auscultation bilaterally, no crackles, no rales, no rhonchi and no wheezes Cardio Rate: regular rate Rhythm: regular rhythm Heart sounds: S1 normal heart sound present and S2 normal heart sound present Bruits: no carotid bruits Peripheral pulses: Peripheral pulses 2+ throughout GI Inspection: Yes normal to inspection Skin Wounds: no wounds Hair: normal Neuro General: oriented to person, oriented to place and oriented to time Cranial nerves: Yes CN's II-XII intact bilaterally and Yes Normal hearing present Cognition (Neuro): normal cognition Motor exam (neuro): 5/5 motor strength present throughout Extrem Other: venous exam: No significant superficial varicosities or spider telangiectasias, minimal edema General: No clubbing, No cyanosis and No edema Psych Appearance: grossly normal Mental Status: mental status grossly normal Speech and movement: Normal speech and movement present Results Reviewed Results Reviewed: Carotid ultrasound dated 03/11/2024 demonstrates right-sided chronic occlusion left side 50-79% stenosis with a peak systolic velocity 300 written report and images were reviewed Assessment & Plan Assessment & Plan (1) Bilateral carotid artery stenosis: Comment: 09/16/2018 - left carotid endarterectomy Code(s): I65.23 - Occlusion and stenosis of bilateral carotid arteries Category: Medical Plan: In short patient has asymptomatic carotid disease. We have reviewed signs and symptoms of a stroke. We also discussed risk factor modification inclusive a healthy diet low in cholesterol. The patient will follow up with us with surveillance ultrasound of the carotids 1 year. Should there be any changes or signs or symptoms of a stroke we will be happy to see them back sooner. Thank you for allowing us to participate in this patient's care. If there are any questions or concerns please do not hesitate to contact us. (2) Parotid neoplasm: Code(s): D49.0 - Neoplasm of unspecified behavior of digestive system Category: Medical Plan: Patient had surgery on 07/28/2021 with a left radical neck dissection and parotidectomy at [facility]. It is unclear what happened with the follow-up from there. 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 A copy of those reports have been scanned into our system. He has increased numbness in that left neck and there is a question of a lymph node on the right side of his neck. Will plan for referral to Oncology for further evaluation and possible further imaging as required. Once again he will follow up with us in 1 year's time in terms of his carotid disease. Thank you for allowing us to assist in his care. Orders: Orders US carotid duplex BI 1 Year I65.23 - Occlusion and stenosis of bilateral carotid arteries Coding Level of Care Code Est Pt Level 4 (48136) Complex EM visit Add On G2211 Diagnoses Bilateral carotid artery stenosis I65.23 Parotid neoplasm D49.0
[2024-03-18 13:47] VITALS: BP 100/48
== END 2024-03-18 14:14 | disposition home or self-care (01) ==
PROVIDERS: PCP Internal Medicine; Visit Provider Surgery Vascular Surgery
DX: I65.23 Occlusion and stenosis of bilateral carotid arteries (principal); D49.0 Neoplasm of unspecified behavior of digestive system
CPT/HCPCS: 99214; G2211

== ENCOUNTER → 2024-03-18 13:44 | Outpatient (BNVA) | payer MEDICARE, SELFPAY | PROVIDERS: PCP Internal Medicine; Visit Provider Surgery Vascular Surgery | DX: I65.23 Occlusion and stenosis of bilateral carotid arteries (principal); D49.0 Neoplasm of unspecified behavior of digestive system | CPT/HCPCS: 99212 ==

== ENCOUNTER 2024-04-05 12:30 | Emergency (ER) | payer MEDICARE, SELFPAY ==
[2024-04-05] VITALS (9 sets, daily range): BP systolic 138–169; BP diastolic 45–68; PULSE 72–92; RESP 14–19; TEMP 36.3–36.9; O2SAT 91–97; BMI 35.7
--- NOTE | ~2024-04-05 | XR_ITS ---
EXAMINATION: XR CHEST CLINICAL INFORMATION: CP COMPARISON: Chest x-ray on 07/08/2022 TECHNIQUE: 2 views of the chest were obtained. FINDINGS: The cardiac silhouette is normal. There is mild diffuse bronchial wall thickening. There are no areas of consolidation. Trace bilateral pleural effusions. XR/XR chest 2V IMPRESSION: Trace bilateral pleural effusions.. Electronically signed by: Yvonne Bowman MD 04/05/2024 02:11 PM [facility]
--- NOTE | 2024-04-05 12:32 | ED.SOB ---
HPI - SOB/Dyspnea General Chief Complaint: Upper Respiratory Symptoms Stated Complaint: difficulty breathing Time Seen by Provider: 04/05/24 16:48 Source: patient, RN notes reviewed and old records reviewed Mode of arrival: ambulatory Limitations: no limitations History of Present Illness ED Provider: Francis GONZALES Narrative: 79-year-old male past medical history significant for neurogenic bladder, BPH, history of CVA, coronary artery disease, hypertension, hyperlipidemia, diabetes presents for evaluation of shortness of breath. Patient reports he has had increasing shortness of breath for several months. He reports that his symptoms worsened today. He was bending over to tie his shoes when he could not catch his breath. This prompted him to seek evaluation in the ER. He denies any chest pain. He has not had any fevers, chills. He endorses bilateral leg swelling He takes torsemide and spironolactone for diuretics He is unsure if he has any history of CHF The patient reports that he has been coughing up white frothy sputum. He reports that his symptoms are worse if he lies flat in his back. He has been sleeping in a recliner for many years Related Data Home Medications ?Medication ?Instructions ?Recorded ?Confirmed atorvastatin 40 mg tablet 1 tab PO BEDTIME 04/22/20 01/19/23 insulin lispro 100 unit/mL 30 unit subcut TID 04/22/20 01/19/23 subcutaneous solution olmesartan 40 mg tablet 1 tab PO DAILY 04/22/20 01/19/23 gemfibrozil 600 mg tablet 600 mg PO BID 05/19/20 01/19/23 hydralazine 100 mg tablet 100 mg PO BID 05/19/20 01/19/23 omeprazole 20 mg capsule,delayed 1 cap PO DAILY 05/24/20 01/19/23 release insulin syringe-needle U-100 1 mL #10 ea 09/21/20 01/19/23 28 gauge x 1/2 metoprolol succinate 200 mg 0.5 tab PO DAILY 08/04/21 01/19/23 tablet,extended release 24 hr acetaminophen 500 mg tablet 500 mg PO Q6H PRN pain 08/18/21 01/19/23 aspirin 81 mg tablet,delayed 81 mg PO DAILY 10/04/21 01/19/23 release (Adult Low Dose Aspirin) insulin glargine 100 unit/mL 20 unit subcut BID 09/05/22 01/19/23 subcutaneous solution (Lantus U-100 Insulin) timolol maleate 0.5 % eye drops 1 drp ophthalmic (eye) QAM 09/18/22 01/19/23 bumetanide 1 mg tablet 1 mg PO DAILY 04/24/23 nifedipine 60 mg tablet,extended 120 mg PO QDAY 04/24/23 release cholecalciferol (vitamin D3) 25 25 mcg PO DAILY 04/27/23 mcg (1,000 unit) capsule spironolactone 50 mg tablet 50 mg PO DAILY 04/27/23 hydralazine 100 mg tablet 100 mg PO BID 03/18/24 insulin lispro 100 unit/mL 1 sliding scale dose subcut 03/18/24 subcutaneous pen USEASDIRECTD Previous Rx's ?Medication ?Instructions ?Recorded fluconazole 150 mg tablet 150 mg PO Q3D yeast infection 2 08/17/21 (Diflucan) doses #2 tabs bethanechol chloride 50 mg tablet 50 mg PO BID 90 days #180 tabs 10/23/23 tamsulosin 0.4 mg capsule 0.4 mg PO BEDTIME 90 days #90 caps 10/23/23 furosemide 40 mg tablet 40 mg PO DAILY #7 tabs 04/05/24 Allergies Allergy/AdvReac Type Severity Reaction Status Date / Time No Known Allergies Allergy Verified 04/05/24 12:35 [No Known Allergies*] Review of Systems Constitutional: Constitutional: Denies body ache(s), Denies chills and Denies fever(s) Eyes: Eyes: Denies blurry vision ENT: Denies vertigo and Denies dizziness Cardiovascular: Cardiovascular: Denies chest pain, Reports leg edema and Reports dyspnea Respiratory: Respiratory: Reports cough, Denies hemoptysis and Reports dyspnea Gastrointestinal: Gastrointestinal: Denies abdominal pain, Denies nausea and Denies vomiting Musculoskeletal: Musculoskeletal: Denies back pain Integumentary/Breasts: Skin/Breast: Denies rash Neurologic: Denies vertigo and Denies dizziness [facility] Past Medical History Medical History Hx: UTI (urinary tract infection) Metabolic acidosis with normal anion gap and bicarbonate losses Metabolic acidosis with increased anion gap and accumulation of organic acids Anemia Difficult Marques catheter placement H/O cataract Adenomatous colon polyp Johnson esophagus Blind right eye CAD (coronary artery disease) Iron deficiency anemia due to chronic blood loss Acute kidney injury Amputation of left great toe Hepatitis C Hyperlipidemia CVA (cerebral vascular accident) Chronic kidney disease, stage 3 Peripheral vascular disease HTN (hypertension) Diabetes High cholesterol Surgical History S/P CABG x 2 Hx of cystoscopy Parotid mass (07/28/21) History of esophagogastroduodenoscopy (EGD) Hx of colonoscopy History of ankle surgery S/P carotid endarterectomy (~08/2018) S/P CABG (coronary artery bypass graft) (~2006) Family History Family History Other CAD (coronary artery disease) Social History Social History Household Members: Spouse Housing: House Are you a primary direct care staffer to a significant other at home: No Do you presently have visiting nurse or other home services: No Alcohol intake: never Comment: blind right eye Patient Tobacco Use Status: Former Tobacco user Tobacco use type: Cigarette e-Cigarette/Vaping Use: Never Used Substance Use Type: Marijuana Advance Directives: Yes Advance Directives on File: Yes Advance Directives Date on File: 04/14/21 Do you have a plan to hurt others: No Plan service: No Current occupational status: retired Physical Exam Vital Signs: Vital Signs: Last Vital Signs Temp 97.8 F 04/05/24 20:58 Pulse 92 04/05/24 20:58 Resp 16 04/05/24 20:58 BP 156/60 H 04/05/24 20:58 Pulse Ox 96 04/05/24 20:58 O2 Del Method Room Air 04/05/24 20:58 O2 Flow Rate 2 04/05/24 18:07 Oxygen Flow Rate 2 04/05/24 19:25 BMI result Body Mass Index 35.7 Const: General: healthy appearing, comfortable, no acute distress, alert and awake Nutritional Appearance: well nourished Orientation/consciousness: patient oriented x3 HEENT: Head: Yes normocephalic and Yes atraumatic Eyes: Eyelids: Yes eyelids normal Conjunctivae: conjunctivae normal Sclerae: sclerae normal Corneas: corneas normal Pupils: Equal, round and reactive pupils present EOM: EOMs intact bilaterally Neck: Neck: Yes full ROM Resp: Effort & Inspection: normal respiratory effort, able to speak in complete sentences and not labored Cardio: Other: 2 to 3+ bilateral pitting edema Rate: regular rate Rhythm: regular rhythm GI: Inspection: No distended Palpation (GI): Soft to palpation, not firm, nontender, no guarding and not rigid Skin: General skin exam: elasticity normal Neuro: General: patient oriented x3 Cranial nerves: Yes Equal, round and reactive pupils present and Yes Bilaterally intact EOM present Cognition (Neuro): normal cognition Course Course Course Narrative: This is a rapid medical exam. Deferred additional HPI, ROS, PE to primary provider. 79 yo male with history of DM, CAD, HLD, HTN, CKD, CHF on bumex here with complaints of diff breathing with cough x several weeks. Has some chest pressure. No leg swelling, fever. Will obtain labs, EKG, CXR, viral testing VITA Winslow APRN Reevaluation(s) Reevaluation #1: Patient's ambulation trial showed that he became hypoxic to 89%. The patient was offered admission due to hypoxia secondary to CHF. The patient would prefer to be discharged home. He does have a electronic page makeup system operator whom he may follow up with his an outpatient. I will have him take Lasix 40 mg daily for the next 7 days. We will hold his torsemide while he was taking the Lasix. I encouraged him to call his Cardiology, Dr. Mejia on Sunday to schedule follow-up and return to the ER sooner if he has any new or worsening symptoms Time: 20:47 Medications Administered Discontinued Medications Generic Name Dose Route Start Last Admin Trade Name Vanceq PRN Reason Stop Dose Admin Furosemide 40 mg 04/05/24 17:41 04/05/24 18:06 Furosemide 40 Mg/4 Ml Vial IVPUSH 04/05/24 17:42 40 mg STAT STA Administration Protocol Medical Decision Making Medical Decision Making [facility] Narrative: 79-year-old male with past medical history as documented above presents for evaluation of shortness of breath. His history exam is most consistent with congestive heart failure. His BNP is elevated to 320. His chest x-ray shows trace pleural effusions and enlarged heart. The patient's last echocardiogram was 3 years ago which showed an ejection fraction of 60-65%. He has no evidence of infectious process, no fever, no evidence of pneumonia on x-ray. We will treat his symptoms with Lasix 40 mg IV Differential Diagnosis Differential Diagnoses: The differential diagnosis associated with the presentation includes CHF Bronchitis Pneumonia Viral syndrome Upper respiratory infection PE less likely Admission/Observation Consideration of admission/observation: Escalation of care including admission/observation considered Lab Data MDM Lab Attestation statement: I reviewed the patient's lab results. Mild leukocytosis to 12.0. The patient has a chronic left shift. He does have a mild anemia with a hemoglobin of 10.9 and hematocrit 33.8. This is consistent with his baseline. Electrolytes are largely unremarkable. The patient's BNP is elevated as documented above. His troponin is normal at 6.8. 04/05/24 13:00 04/05/24 13:00 Labs: Lab Results 04/05/24 04/05/24 04/05/24 Range/Units 13:00 16:46 19:27 WBC 12.0 H (4.8-10.8) X10*3/uL RBC 3.71 L (4.60-5.80) X10*6/uL Hgb 10.9 L (14.0-18.0) g/dl Hct 33.8 L (42.0-52.0) % MCV 91.1 (80.0-98.0) fL MCH 29.4 (27.0-33.0) pg MCHC 32.2 (31.0-36.0) g/dl RDW 13.7 (11.0-16.0) % Plt Count 280 (160-400) X10*3/uL MPV 9.5 (9.4-12.4) fL Immature Gran % (Auto) 0.5 H (0.0-0.4) % Neut % (Auto) 77.3 H (45-73) % Lymph % (Auto) 9.6 L (20-40) % Fountain % (Auto) 9.9 (2-11) % Eos % (Auto) 1.9 (0-4) % Baso % (Auto) 0.8 (0-2) % Lymph # (Auto) 1.2 (1.2-4.9) X10*3/uL Fountain # (Auto) 1.2 (0.1-1.2) X10*3/uL Eos # (Auto) 0.2 (0.0-0.4) X10*3/uL Baso # (Auto) 0.1 (0.0-0.2) X10*3/uL Abs Immat Gran (auto) 0.06 H (0.00-0.03) X10*3/uL Absolute Neuts (auto) 9.3 H (2.0-8.3) x10*3/uL Absolute Nucleated RBC 0.000 (0.0-0.012) X10*3/uL Nucleated RBC % (auto) 0.0 (0.0-0.2) /100WBC PT 12.3 (10.9-12.4) SEC INR 1.1 (0.9-1.1) Sodium 144 (135-145) mmol/L Potassium 4.1 (3.3-5.1) mmol/L Chloride 109 H (96-108) mmol/L Carbon Dioxide 23 (22-29) mmol/L Anion Gap 16 (12-20) BUN 27 H (9-16) mg/dL Creatinine 1.38 (0.5-1.4) mg/dL Estim Creat Clear Calc 54.6 Estimated GFR 50 POC Glucose 62 132 H (60-115) mg/dL Random Glucose 96 (60-115) mg/dL Calcium 9.6 D (8.4-10.2) mg/dL Total Bilirubin 0.3 (0.0-1.0) mg/dL Direct Bilirubin 0.1 (0.0-0.5) mg/dL AST 24 (5-37) U/L ALT 20 (0-40) U/L Alkaline Phosphatase 138 H (39-117) U/L Troponin I High Sens 6.8 (<3.5-35.0) ng/L B-Natriuretic Peptide 320 H (<100) pg/mL Total Protein 7.4 (6.5-8.0) g/dL Albumin 4.3 (3.5-5.0) g/dL Influenza Type A (PCR) NEGATIVE (Negative) Influenza Type B (PCR) NEGATIVE (Negative) RSV RNA Qual (PCR) NEGATIVE (Negative) SARS-CoV-2 RNA (RT-PCR) NEGATIVE (Negative) Independent Interpretation I performed an independent interpretation of an: EKG (Normal sinus rhythm with a rate of 82 beats minute. There was a right bundle branch block. No ST segment elevations or depressions) and Plain X-Ray (Small bilateral pleural effusions) Radiology Impression Discussion of test interpretation with radiology: I have reviewed the radiologist's reading. Radiologist Impression: FINDINGS: The cardiac silhouette is normal. There is mild diffuse bronchial wall thickening. There are no areas of consolidation. Trace bilateral pleural effusions. XR/XR chest 2V IMPRESSION: Trace bilateral pleural effusions.. Electronically signed by: Yvonne Bowman MD 04/05/2024 02:[address] [facility] Discharge Plan Discharge Clinical Impression: Shortness of breath, Congestive heart failure Patient Disposition: Home, Self-Care Instructions: Heart Failure (ED) Additional Instructions: Your workup in the ER today was concerning for congestive heart failure. Call your electronic page makeup system operator on Sunday to schedule follow-up, you may benefit from an outpatient echocardiogram. I recommend that you stop taking the bumex for the next week Take the furosemide 40 mg daily You may resume all your other medications as prescribed. I recommend that you avoid excessive salt intake and fluid intake Return for new or worsening symptoms Prescriptions: New furosemide 40 mg tablet 40 mg PO DAILY Qty: 7 0RF No Action atorvastatin 40 mg tablet 1 tab PO BEDTIME insulin lispro 100 unit/mL solution 30 unit subcut TID olmesartan 40 mg tablet 1 tab PO DAILY hydralazine 100 mg tablet 100 mg PO BID gemfibrozil 600 mg tablet 600 mg PO BID omeprazole 20 mg capsule,delayed release(DR/EC) 1 cap PO DAILY fluconazole [Diflucan] 150 mg tablet 150 mg PO Q3D Qty: 2 0RF metoprolol succinate 200 mg tablet extended release 24 hr 0.5 tab PO DAILY aspirin [Adult Low Dose Aspirin] 81 mg tablet,delayed release (DR/EC) 81 mg PO DAILY (DME) insulin syringe-needle U-100 1 mL 28 gauge x 1/2 syringe See Rx Instructions .ROUTE .MEDSUPPLY Qty: 10 Rx Instructions: As directed acetaminophen 500 mg tablet 500 mg PO Q6H PRN (Reason: pain) timolol maleate 0.5 % drops 1 drp ophthalmic (eye) QAM insulin glargine [Lantus U-100 Insulin] 100 unit/mL solution 20 unit subcut BID spironolactone 50 mg tablet 50 mg PO DAILY cholecalciferol (vitamin D3) 25 mcg (1,000 unit) capsule 25 mcg PO DAILY hydralazine 100 mg tablet 100 mg PO BID insulin lispro 100 unit/mL insulin pen 1 sliding scale dose subcut USEASDIRECTD bumetanide 1 mg tablet 1 mg PO DAILY nifedipine 60 mg tablet extended release 120 mg PO QDAY bethanechol chloride 50 mg tablet 50 mg PO BID 90 Days Qty: 180 3RF tamsulosin 0.4 mg capsule 0.4 mg PO BEDTIME 90 Days Qty: 90 2RF Interventions: ED Discharge Assessment Last Done: 04/05/24 20:58 Print Language: Andorran
--- NOTE | 2024-04-05 12:35 | ECG_ITS ---
Test Reason : chest pain Blood Pressure : / mmHG Vent. Rate : 082 BPM Atrial Rate : 082 BPM P-R Int : 160 ms QRS Dur : 154 ms QT Int : 410 ms P-R-T Axes : 036 057 039 degrees QTc Int : 479 ms Normal sinus rhythm Right bundle branch block Abnormal ECG When compared with ECG of 08-JUL-2022 17:17, No significant change was found Referred By: Stella Winslow Electronically Signed By:Brady Kimbrough
[2024-04-05 13:06] LABS: MANUAL DIFF FLAG NO
[2024-04-05 13:07] LABS: Basophils Absolute Auto 0.1 X10*3/uL (0.0-0.2); Basophils Percent Auto 0.8 % (0-2); Eosinophils Absolute Auto 0.2 X10*3/uL (0.0-0.4); Eosinophils Percent Auto 1.9 % (0-4); Hematocrit 33.8 % (42.0-52.0); Hemoglobin 10.9 g/dl (14.0-18.0); Imm Gran Abs Auto 0.06 X10*3/uL (0.00-0.03); Imm Gran Pct Auto 0.5 % (0.0-0.4); Lymphocytes Absolute Auto 1.2 X10*3/uL (1.2-4.9); Lymphocytes Percent Auto 9.6 % (20-40); Mean Corpuscular HGB Conc 32.2 g/dl (31.0-36.0); Mean Corpuscular Hemoglobin 29.4 pg (27.0-33.0); Mean Corpuscular Volume 91.1 fL (80.0-98.0); Mean Platelet Volume 9.5 fL (9.4-12.4); Monocytes Absolute Auto 1.2 X10*3/uL (0.1-1.2); Monocytes Percent Auto 9.9 % (2-11); Neutrophils Absolute Auto 9.3 x10*3/uL (2.0-8.3); Neutrophils Percent Auto 77.3 % (45-73); Platelet Count 280 X10*3/uL (160-400); Red Blood Count 3.71 X10*6/uL (4.60-5.80); Red Cell Distribution Width 13.7 % (11.0-16.0)
[2024-04-05 13:13] LABS: INTERNATIONAL NORM RATIO 1.1 (0.9-1.1); Prothrombin Time 12.3 SEC (10.9-12.4)
[2024-04-05 13:20] LABS: Alanine Aminotransferase 20 U/L (0-40); Albumin Level 4.3 g/dL (3.5-5.0); Alkaline Phosphatase 138 U/L (39-117); Anion Gap 16 (12-20); Aspartate Amino Transferase 24 U/L (5-37); Bilirubin Direct 0.1 mg/dL (0.0-0.5); Bilirubin Total 0.3 mg/dL (0.0-1.0); Blood Urea Nitrogen 27 mg/dL (9-16); Calcium 9.6 mg/dL (8.4-10.2); Carbon Dioxide 23 mmol/L (22-29); Chloride 109 mmol/L (96-108); Creatinine Clr Calc Pharmacy 54.6; Estimated Glomerular Filt Rate 50; Glucose Random 96 mg/dL (60-115); Potassium 4.1 mmol/L (3.3-5.1); Sodium 144 mmol/L (135-145); Total Protein 7.4 g/dL (6.5-8.0)
[2024-04-05 13:26] LABS: B Type Natriuretic Peptide 320 pg/mL (<100)
[2024-04-05 13:27] LABS: Troponin-I High Sensitivity 6.8 ng/L (<3.5-35.0)
--- NOTE | 2024-04-05 13:43 | PC.NURSE ---
patient is on 2l NC due to hypoxia in ED, satting 96% and states he is more comfortable. patient states he feels as if his legs are the same size as they normally are for him- noted to be edematous. ptient states he sleeps in his recliner because its hard to breathe when laying flat. patient states 2 days ago when he was snow blowing he became sob. today endorses chest pressure and sob, stated he became scared and came to ED. placed #20 in LFA, labs drawn and obtained
[2024-04-05 13:46] LABS: Influenza A PCR NEGATIVE (Negative); Influenza B PCR NEGATIVE (Negative); Resp Syncy Virus RNA Qual PCR NEGATIVE (Negative); SARS COV2 PCR INHOUSE NEGATIVE (Negative)
[2024-04-05 16:50] LABS: Glucose, Whole Blood 62 mg/dL (60-115)
--- NOTE | 2024-04-05 16:52 | PC.NURSE ---
patient alerted RN he felt his sugar was low, poc checked, poc 62, patient awake and alert, given 2 apple juice. ED provider made aware
[2024-04-05] MEDS: Furosemide 40 MG/4 ML VIAL IVPUSH (18:06)
[2024-04-05 19:33] LABS: Glucose, Whole Blood 132 mg/dL (60-115)
--- NOTE | 2024-04-05 20:41 | MHC.EDTECH ---
Prasanna patient around unit and O2 dropped to 89%
--- NOTE | 2024-04-05 20:57 | PC.NURSE ---
LIZBETH Hagen spoke with patient and patients regarding admission vs. discharge home and patient and decided they would like to be discharged home as no acute findings and patient has been dealing with this sob for a while now
== END 2024-04-05 21:07 | disposition home or self-care (01) ==
PROVIDERS: Nurse Practitioner Family; Emergency Provider Emergency Medicine; PCP Internal Medicine
DX: I13.0 Hypertensive heart and chronic kidney disease with heart failure and stage 1 through stage 4 chronic kidney disease, or unspecified chronic kidney disease (principal); I50.9 Heart failure, unspecified; N18.30 Chronic kidney disease, stage 3 unspecified; E11.22 Type 2 diabetes mellitus with diabetic chronic kidney disease; R06.02 Shortness of breath; R60.0 Localized edema; E78.5 Hyperlipidemia, unspecified; Z79.4 Long term (current) use of insulin; Z79.82 Long term (current) use of aspirin; Z79.02 Long term (current) use of antithrombotics/antiplatelets; Z79.899 Other long term (current) drug therapy
CPT/HCPCS: 0241U; 71046; 80048; 80076; 82947; 83880; 84484; 85025; 85610; 93005; 96374; 99284; 99285; J1940

== ENCOUNTER → 2024-04-05 12:35 | Outpatient (BNV) | payer MEDICARE, SELFPAY | PROVIDERS: Emergency Provider Emergency Medicine; PCP Internal Medicine; Visit Provider Internal Medicine Cardiovascular Disease | DX: R07.9 Chest pain, unspecified (principal); I45.10 Unspecified right bundle-branch block; R94.31 Abnormal electrocardiogram [ECG] [EKG] | CPT/HCPCS: 93010 ==

== ENCOUNTER 2024-04-15 13:25 | Outpatient (AMB) | payer MEDICARE, SELFPAY ==
--- NOTE | 2024-04-15 13:40 | A.OFFVIS_ITS ---
Intake Visit Reasons: 6m/PVR Intake Note: Patient presents today for follow up BPH Urology Medications: tamsulosin, bethanechol Blood Thinner: Aspirin PVR: 33ml's Litigation Legal Assistant Required: No Accompanied by: Self / Same As Patient Allergies No Known Allergies [No Known Allergies*] Allergy (Verified 04/15/24 14:09) Medication List - Last Reconciled 04/15/24 by FAROOQ Pavon acetaminophen 500 mg PO Q6H PRN aspirin (Adult Low Dose Aspirin) 81 mg PO DAILY atorvastatin 1 tab PO BEDTIME bethanechol chloride 50 mg PO BID 90 days bumetanide 1 mg PO DAILY cholecalciferol (vitamin D3) 25 mcg PO DAILY fluconazole (Diflucan) 150 mg PO Q3D 2 doses furosemide 40 mg PO DAILY gemfibrozil 600 mg PO BID hydralazine 100 mg PO BID hydralazine 100 mg PO BID insulin glargine (Lantus U-100 Insulin) 20 units subcut BID insulin lispro 30 units subcut TID insulin lispro 1 sliding scale dose subcut USEASDIRECTD insulin syringe-needle U-100 As directed metoprolol succinate ER 0.5 tabs PO DAILY nifedipine ER 120 mg PO QDAY olmesartan 1 tab PO DAILY omeprazole 1 cap PO DAILY spironolactone 50 mg PO DAILY tamsulosin 0.4 mg PO BEDTIME 90 days timolol maleate 0.5% 1 drp ophthalmic (eye) QAM HPI Comments Details: John is a pleasant 79-year-old male patient of Dr. Claude GOLDSTEIN who is accompanied by his at today's visit. He has a past medical history of anemia, cataracts, Johnson esophagus, coronary artery disease, amputation of left great toe, CVA, Hep C, hyperlipidemia, CVA, chronic kidney disease stage 3, PVD, hypertension, hypercholesteremia, and diabetes. Patient status post laser prostatectomy and SP tube placement with Dr. Up September of 2021. However, suprapubic tube has since been removed and the patient has been able to urinate independently. He presents to the office today for follow-up of his incomplete bladder emptying, recurrent urinary tract infections, and lower urinary tract symptoms. In discussion with the patient today reports to be doing and feeling well. He reports compliance with 0.4 mg of Flomax daily as well as bethanechol 50 mg b.i.d and is happy with his current voiding parameters. He denies having had any UTIs and or UTI like symptoms since his last office visit here approximately 6 months ago. In office urinalysis results reviewed with the patient today 1+ proteinuria however patient follows up with Dr. Leroy'martin for Nephrology. PVR 33ml's. He currently denies any bothersome urinary issues or concerns. He denies urinary urgency, urinary frequency, incontinence, nocturia, hematuria, dysuria, foul smelling urine, changes to urinary stream, flank pain, fever, and or chills. Discussed at length potential causes and affects of incomplete bladder emptying. He otherwise offers no issues or concerns. PSAs are as follows: PSAs: 04/21 1.7, 10/21 1.6 [facility] Medical History (Reviewed 04/15/24 @ 14:12 by Rere Ascencio [facility]) Hx: UTI (urinary tract infection) Metabolic acidosis with normal anion gap and bicarbonate losses Metabolic acidosis with increased anion gap and accumulation of organic acids Anemia Difficult Marques catheter placement H/O cataract Adenomatous colon polyp Johnson esophagus Blind right eye CAD (coronary artery disease) Iron deficiency anemia due to chronic blood loss Acute kidney injury Amputation of left great toe Hepatitis C Hyperlipidemia CVA (cerebral vascular accident) Chronic kidney disease, stage 3 Peripheral vascular disease HTN (hypertension) Diabetes High cholesterol Surgical History S/P CABG x 2 Hx of cystoscopy Parotid mass (07/28/21) History of esophagogastroduodenoscopy (EGD) Hx of colonoscopy History of ankle surgery S/P carotid endarterectomy (~08/2018) S/P CABG (coronary artery bypass graft) (~2006) Family History Other CAD (coronary artery disease) Social History Household Members: Spouse Housing: House Are you a primary home care aide to a significant other at home: No Do you presently have visiting nurse or other home services: No Alcohol intake: never Comment: blind right eye Patient Tobacco Use Status: Former Tobacco user Tobacco use type: Cigarette e-Cigarette/Vaping Use: Never Used Substance Use Type: Marijuana Advance Directives Date on File: 04/14/21 service: No Current occupational status: retired Review of Systems Const Reports as per HPI Eyes Reports as per HPI Card Reports as per HPI GI Reports as per HPI Reports as per HPI Neuro Reports as per HPI Psych Reports no additional complaints Endo Reports as per HPI Physical Exam Const General: cooperative, healthy appearing, comfortable, no acute distress, well developed, alert and awake Orientation/consciousness: patient oriented x3 Limitations: ambulation with cane HEENT Head: Yes normal to inspection, Yes normocephalic and Yes atraumatic Ears: hearing grossly normal bilaterally Eyes General: appearance normal, both eyes and all related structures Neck Neck: Yes normal visual inspection and Yes trachea midline Chest Chest palpation & inspection: normal inspection of the chest Resp Effort & Inspection: normal respiratory effort and able to speak in complete sentences Cardio Rate: regular rate GI Inspection: Yes normal to inspection General: Yes no CVA tenderness Back/Spine/Pelvis Back: no CVA tenderness Skin General skin exam: no rashes or lesions noted Neuro General: patient oriented x3 Extrem General: Yes normal to inspection Psych Appearance: grossly normal and well kempt Mental Status: mental status grossly normal Speech and movement: Normal speech and movement present and Clear speech present Affect: normal affect Attitude: cooperative Thought process: Normal thought process present Thought content: Normal thought content present Insight: Fair insight present (Psych) Judgement: Fair judgement present (Psych) Office Procedures Post Void Residual Post Residual Void Post Void Residual (PVR): 33 20175-Cond Void Residual by ultrasound Results AMB Urinalysis, Automated UA Leukoctes 0 Angelika/uL Last Edit by Faviola Salas on 04/15/24 13:59 UA Nitrite Last Edit by Faviola Salas on 04/15/24 13:59 UA Urobilinogen 0.2 mg/dL Last Edit by Faviola Salas on 04/15/24 13:59 UA Protein 30 mg/dL Last Edit by Faviola Salas on 04/15/24 13:59 UA pH 6.0 Last Edit by Faviola Salas on 04/15/24 13:59 UA Blood 0 Ambrocio/uL Last Edit by Faviola Salas on 04/15/24 13:59 UA Specific [place] 1.015 Last Edit by Faviola Salas on 04/15/24 13:59 UA Ketone Last Edit by Faviola Salas on 04/15/24 13:59 UA Bilirubin 0 mg/dL Last Edit by Faviola Salas on 04/15/24 13:59 UA Glucose 0 mg/dL Last Edit by Faviola Salas on 04/15/24 13:59 Results Reviewed Results Reviewed: Laboratory Last Values Urine pH (Auto) 6.0 04/15/24 13:58 Specific [place] (Auto) 1.015 04/15/24 13:58 Urine Protein (Auto) 30 mg/dL 04/15/24 13:58 Glucose (UA)(Auto) 0 mg/dL 04/15/24 13:58 Urine Blood (Auto) 0 Ambrocio/uL 04/15/24 13:58 Urine Bilirubin (Auto) 0 mg/dL 04/15/24 13:58 Urine Urobilinogen (Auto) 0.2 mg/dL 04/15/24 13:58 Leukocyte Esterase (Auto) 0 Angelika/uL 04/15/24 13:58 Assessment & Plan Assessment & Plan (1) Neurogenic bladder: Code(s): N31.9 - Neuromuscular dysfunction of bladder, unspecified Category: Medical (2) BPH (benign prostatic hyperplasia): Code(s): N40.0 - Benign prostatic hyperplasia without lower urinary tract symptoms Category: Medical (3) Bladder spasm: Code(s): N32.89 - Other specified disorders of bladder Category: Medical (4) Urinary retention with incomplete bladder emptying: Code(s): R33.9 - Retention of urine, unspecified Category: Medical Plan In office urinalysis results reviewed with the patient today; as noted above. PVR 33 mL. Continue bethanechol and Flomax as prescribed. Continue to follow-up with nephrology for proteinuria. Patient currently denies any bothersome urinary issues or concerns. He reports be happy with current voiding parameters. Discussed continuing to double void to assist with incomplete bladder emptying. Will obtain PSA in 6 months Follow-up in 6 months with PSA&PVR; or sooner with any issues, concerns, and or questions. Orders: Orders Prostate Specific Antigen 6 Months N40.0 - Benign prostatic hyperplasia without lower urinary tract symptoms AMB Urinalysis Automated Today Z13.9 - Encounter for screening, unspecified AMB Post Void Residual by ultrasound Today N31.9 - Neuromuscular dysfunction of bladder, unspecified Patient Instructions: The patient had an opportunity to ask questions regarding the treatment plan. All questions were answered. Physical exam, labs, and imaging were discussed and reviewed in detail. As well as risks, benefits, and discussion of treatment choices. No major barriers to understanding were identified. The patient expressed understanding and agreement with the above treatment plan. The patient was made aware they should contact our office by phone for worsening of their current condition, the appearance of new symptoms, or with any questions or concerns. Compliance is encouraged with any medications and follow up testing that is ordered. It is a privilege to be allowed the opportunity to participate in? your urological care.? Again, if you have any questions or concerns If you have any questions or concerns please do not hesitate to contact me. The office is [phone]. This note is constructed using voice recognition software. While every effort has been made to ensure accuracy music leader errors may have been included. Yours sincerely, FAROOQ Pavon Coding Level of Care Code Est Pt Level 3 (77099) Complex EM visit Add On G2211 Diagnoses Neurogenic bladder N31.9 BPH (benign prostatic hyperplasia) N40.0 Bladder spasm N32.89 Urinary retention with incomplete bladder emptying R33.9 CPT Codes Post Residual Void - PVR CPT Code: 07726-Kieh Void Residual by ultrasound ([id number])
== END 2024-04-15 14:06 | disposition home or self-care (01) ==
PROVIDERS: PCP Internal Medicine; Visit Provider Nurse Practitioner Family
DX: N31.9 Neuromuscular dysfunction of bladder, unspecified (principal); N40.0 Benign prostatic hyperplasia without lower urinary tract symptoms; N32.89 Other specified disorders of bladder; R33.9 Retention of urine, unspecified; Z13.9 Encounter for screening, unspecified
CPT/HCPCS: 99213; G2211

== ENCOUNTER → 2024-04-15 13:25 | Outpatient (BNVA) | payer MEDICARE, SELFPAY | PROVIDERS: PCP Internal Medicine; Visit Provider Nurse Practitioner Family | DX: N31.9 Neuromuscular dysfunction of bladder, unspecified (principal); N40.0 Benign prostatic hyperplasia without lower urinary tract symptoms; N32.89 Other specified disorders of bladder; R33.9 Retention of urine, unspecified | CPT/HCPCS: 51798; 81003; 99212 ==

== ENCOUNTER 2024-09-30 10:52 | Outpatient (REF) | payer MEDICARE, SELFPAY ==
[2024-09-30 12:07] LABS: Prostate Specific Antigen 2.57 ng/mL (<0.05-4.0)
--- OUTSIDE RECORDS SUMMARY | 2024-09-30 12:29 | XMS_ITS | Patient Health Record ---
Author Organization [facility] [place] Address [address] [place] [address] Care Team Providers Care Stock Mover Name Role Phone Claude OLEA, Dileep Primary Care Provider Ami Mcdonald Unavailable [phone] Allergies No Known Allergies Results Component Value Reference Range Notes HEMOGLOBIN A1C (GLYCOHEMOGLO BIN) Reviewed date:05/26/2024 12:07:01 PM Interpretation: Performing Lab: Notes/Report: HEMOGLOBIN A1C % (HH) 6.0 HEMOGLOBIN A1C (GLYCOHEMOGLO BIN) Reviewed date:02/14/2024 02:58:16 PM Interpretation: Performing Lab: Notes/Report: TOTAL HEMOGLOBIN (HGBA1C) 6.0 HEMOGLOBIN A1C (GLYCOHEMOGLO BIN) Reviewed date:08/25/2024 02:08:12 PM Interpretation: Performing Lab: Notes/Report: HEMOGLOBIN A1C % (HH) 5.5 Reason For Referral No Information Medications Medication SIG (Take, Route, Frequency, Duration) Notes Start Date End Date Status Omeprazole 20 MG Oral for 90 A ctive Ammonium Lactate 12 % 1 application Externally Twice a day for 30 days Active Metoprolol Succinate ER 200 MG Oral for 90 Active Bethanechol Chloride 50 MG Oral for 90 Active NIFEdipine ER 60 MG Oral for 90 Active Bumetanide 1 MG Oral for 90 Ac tive Atorvastatin Calcium 40 MG Oral for 90 Active Timolol Maleate 0.5 % Ophthalmic for 90 Active HumaLOG 100 UNIT/ML Injection for 100 Active BD Insulin Syringe MicroFine 28G X 1/2 1 ML for 90 Ac tive Spironolactone 50 MG Oral for 90 Active Olmesartan Medoxomil 40 MG Oral for 90 Active Physical Therapy . . . 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 G7 Concrete Mixer Operator - as directed Active Aspirin 81 MG 1 tablet Orally Once a day for 30 day(s) Active Dexcom G7 Sensor - as directed Active Spironolactone 25 MG 1 tablet Orally for 30 day(s) Active Gemfibrozil 600 MG Oral for 90 Not-Taking Fish Oil 1000 MG 1 capsule Orally Thr ee times a day for 30 day(s) Active Jardiance Active Fluticasone Furoate Active Walker as directed 05/26/2024 Active Immunizations Vaccine Route Administration Date Status Comme nts Influenza Unknown 12/29/2022 Administered Social History Tobacco Use: Social History Observation Description Date Details (start date - stop date) Never Smoker NA - NA Tobacco use other than smoking: Question Answer Notes Are you an other tobacco user? No Tobacco Control (Standard) Question Answer Notes Tobacco use: Nonsmoker Additional Findings: Tobacco non-user Current no nsmoker AUDIT-C (Standard) Question Answer Notes Did you have a drink containing alcohol in the p ast year? No Points 0 Interpretation Negative Problems Problem Type SNOMED Code ICD Code Onset Dates Problem Status W/U Status Risk Notes Problem Polyneuropathy due to type 2 diabetes mellitus (991052870) Type 2 diabetes mellitus with diabetic polyneuropathy (E11.42) Active confirmed Problem Unsteadiness present (207449890) Unsteady gait (R26.81) Active confirmed Problem [id number] Amputation of to e of left foot (S98.132A) Active confirmed Vital Signs Blood pressure diastolic 50 mm Hg 08/25/2024 Height 5 ft 10 in in 08/25/2024 Blood pressure systolic 130 mm Hg 08/25/2024 Weight 244 lbs 08/25/2024 BMI 35.01 kg/m2 08/25/2024 Procedures Procedure Date Ordered Date Performed Result Body Sit e 60520-HGIKIMI NAIL, 6 OR MORE 11/12/2023 N/A 56136-BMKP SKIN LESIONS, 2 TO 4 11/12/2023 N/A 83312-ZQKEBVQ NAIL, 6 OR MORE 02/14/2024 N/A 34831-DGKS SKIN LESIONS, 2 TO 4 02/14/2024 N/A 17922-UORIBYN NAIL, 6 OR MORE 05/26/2024 N/A 75458-CVMN SKIN LESIONS, 2 TO 4 05/26/2024 N/A 66794-PRCBLDV NAIL, 6 OR MORE 08/25/2024 N/A 87724-GSRU SKIN LESIONS, 2 TO 4 08/25/2024 N/A Encounters Encounter Location Date Provider Diagnosis [address] [address] 11/12/2023 Ami Black Type 2 diabetes mellitus with diabetic polyneuropathy E11.42 ; Tinea unguium B35.1 ; Xerosis of skin L85.3 and Amputation of toe of left foot S98.132A [address] [address] 02/14/2024 Ami Black Type 2 diabetes mellitus with diabetic polyneuropathy E11.42 ; Tinea unguium B35.1 and Amputation of toe of left foot S98.132A [address] [address] 05/26/2024 Ami Black Type 2 diabetes mellitus with diabetic polyneuropathy E11.42 ; Unsteady gait R26.81 ; Tinea unguium B35.1 ; Amputation of toe of left foot S98.132A ; Hx of falling Z91.81 and Muscle weakness M62.[address] [address] 08/25/2024 Ami Black Type 2 diabetes mellitus with diabetic polyneuropathy E11.42 ; Unsteady gait R26.81 ; Tinea unguium B35.1 ; Amputation of toe of left foot S98.132A ; Hx of falling Z91.81 and Muscle weakness M62.81 Assessments Encounter Date Diagnosis (ICD Code) Assessment Notes Treatment Notes Treatment Clinical Notes Section Notes 11/12/2023 Type 2 diabetes mellitus with diabetic polyneuropathy (ICD-10 - E11.42) 11/12/2023 Tinea unguium (ICD-10 - B35.1) 02/14/2024 Type 2 diabetes mellitus with diabetic polyneuropathy (ICD-10 - E11.42) 02/14/2024 Tinea unguium (ICD-10 - B35.1) 05/26/2024 Type 2 diabetes mellitus with diabetic polyneuropathy (ICD-10 - E11.42) 05/26/2024 Unsteady gait (ICD-10 - R26.81) 08/25/2024 Type 2 diabetes mellitus with diabetic polyneuropathy (ICD-10 - E11.42) 08/25/2024 Unsteady gait (ICD-10 - R26.81) 08/25/2024 Tinea unguium (ICD-10 - B35.1) 05/26/2024 Tinea unguium (ICD-10 - B35.1) 02/14/2024 Amputation of toe of left foot (ICD-10 - S98.132A) 11/12/2023 Xerosis of skin (ICD-10 - L85.3) Response to treatment - Improvement 11/12/2023 Amputation of toe of left foot (ICD-10 - S98.132A) 05/26/2024 Amputation of toe of left foot (ICD-10 - S98.132A) 08/25/2024 Amputation of toe of left foot (ICD-10 - S98.132A) 08/25/2024 Hx of falling (ICD-10 - Z91.81) 05/26/2024 Hx of falling (ICD-10 - Z91.81) 05/26/2024 Muscle weakness (ICD-10 - M62.81) 08/25/2024 Muscle weakness (ICD-10 - M62.81) 11/12/2023 Other Plan Of Treatment Pending Test Test Name Order Date 45406-UICXTQU NAIL, 6 OR MORE 07/26/2023 79062-ANEEIOM NAIL, 6 OR MORE 11/12/2023 36503-SESAKDW NAIL, 6 OR MORE 02/14/2024 87286-PBOHRBY NAIL, 6 OR MORE 05/26/2024 91508-ORDYJEB NAIL, 6 OR MORE 08/25/2024 67501-ACTM SKIN LESIONS, 2 TO 4 07/26/19 24 85398-JVMP SKIN LESIONS, 2 TO 4 08/26/19 25 78490-EXHC SKIN LESIONS, 2 TO 4 05/26/19 25 25435-HSFY SKIN LESIONS, 2 TO 4 02/14/20 24 47627-UMKZ SKIN LESIONS, 2 TO 4 11/12/19 Next Appt Details Provider Name:Ami Almazan , 11/27/2024 01:00:00 PM, [address] [place], [address], Insurance Providers Payer Name Payer Address Payer Phone Subscriber Number Group Number Insured Name Patient Relationship to Insured Coverage Start Date Coverage End Date [employer] Medicare Adv-[id number] [address] [address] [place] [address] [id number] John Faulkner Self - patient is the insured Medical (General) History Medical History History ICD Code Broken bones CAD (Cholesterol) Cancer Cataracts Diabetic Heart disease High blood pressure Joint implants/screws Replacement Heart Valves Transfusions Other hammer toe(s) (acquired), right fo ot M20.41 Arthritis of joint of lesser toe, right M19.071 Other hammer toe(s) (acquired), left azra t M20.42 Arthritis of joint of lesser toe, left M 19.072 Surgical History Surgery Date(Month/Year) heart surgery cancer surgery amputation, toe B/L ankle surgery- pins colonoscopy
== END 2024-09-30 10:53 | disposition home or self-care (01) ==
LOC: HO.LAB 10:52
PROVIDERS: PCP Internal Medicine; Visit Provider Nurse Practitioner Family
DX: N40.0 Benign prostatic hyperplasia without lower urinary tract symptoms (principal); Z12.5 Encounter for screening for malignant neoplasm of prostate
CPT/HCPCS: 36415; 84153

== ENCOUNTER 2024-10-14 13:22 | Outpatient (AMB) | payer MEDICARE, SELFPAY ==
--- NOTE | 2024-10-14 13:39 | A.OFFVIS_ITS ---
Intake Visit Reasons: 6m PSA Intake Note: Patient presents today for a 6m follow up/PSA * PSA 2.57 Urology Medications: tamsulosin, bethanechol Blood Thinner: Aspirin PVR: 127ml Wildlife Conservation Professor Required: No Accompanied by: Self / Same As Patient Allergies No Known Allergies [No Known Allergies*] Allergy (Verified 10/14/24 14:26) Medication List - Last Reconciled 10/14/24 by LEOBARDO Pavon-JEREMIAH acetaminophen 500 mg PO Q6H PRN aspirin (Adult Low Dose Aspirin) 81 mg PO DAILY atorvastatin 1 tab PO BEDTIME bethanechol chloride 50 mg PO BID 90 days bumetanide 1 mg PO DAILY cholecalciferol (vitamin D3) 25 mcg PO DAILY gemfibrozil 600 mg PO BID hydralazine 100 mg PO BID insulin lispro 30 units subcut TID insulin lispro 1 sliding scale dose subcut USEASDIRECTD insulin syringe-needle U-100 As directed metoprolol succinate ER 0.5 tabs PO DAILY nifedipine ER 120 mg PO QDAY olmesartan 1 tab PO DAILY omeprazole 1 cap PO DAILY spironolactone 50 mg PO DAILY tamsulosin 0.4 mg PO BEDTIME 90 days timolol maleate 0.5% 1 drp ophthalmic (eye) QAM HPI Comments Details: John is a pleasant 79-year-old male patient of Dr. Claude GOLDSTEIN who is accompanied by his at today's visit. He has a past medical history of anemia, cataracts, Johnson esophagus, coronary artery disease, amputation of left great toe, CVA, Hep C, hyperlipidemia, CVA, chronic kidney disease stage 3, PVD, hypertension, hypercholesteremia, and diabetes. Patient status post laser prostatectomy and SP tube placement with Dr. Up September of 2021. However, suprapubic tube has since been removed and the patient has been able to urinate independently. He presents to the office today for follow-up of his incomplete bladder emptying, recurrent urinary tract infections, and lower urinary tract symptoms. In discussion with the patient today reports to be doing and feeling well. He reports compliance with 0.4 mg of Flomax daily as well as bethanechol 50 mg b.i.d and is happy with his current voiding parameters. He denies having had any UTIs and or UTI like symptoms since his last office visit here approximately 6 months ago. In office urinalysis results reviewed with the patient today PVR 127ml's. He continues to follow-up with Dr. Leroy's his healthcare prof. He currently denies any bothersome urinary issues or concerns. He denies urinary urgency, urinary frequency, incontinence, nocturia, hematuria, dysuria, foul smelling urine, changes to urinary stream, flank pain, fever, and or chills. Discussed at length potential causes and affects of incomplete bladder emptying. He otherwise offers no issues or concerns. PSAs are as follows: PSAs: 04/21 1.7, 10/21 1.6, 10/22 2.6 We did discussed slight increase in PSA over the last year. We discussed previous bladder ultrasound 08/19 noted 61 mL prostate however patient has since had surgical intervention with Dr. Up to include laser prostatectomy. We discussed potential causes of slight increase in PSA. Will continue with surveillance monitoring. All questions were answered. 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 CAD (coronary artery disease) Iron deficiency anemia due to chronic blood loss Acute kidney injury Amputation of left great toe Hepatitis C Hyperlipidemia CVA (cerebral vascular accident) Chronic kidney disease, stage 3 Peripheral vascular disease HTN (hypertension) Diabetes High cholesterol Surgical History S/P CABG x 2 Hx of cystoscopy Parotid mass (07/28/21) History of esophagogastroduodenoscopy (EGD) Hx of colonoscopy History of ankle surgery S/P carotid endarterectomy (~08/2018) S/P CABG (coronary artery bypass graft) (~2006) Family History Other CAD (coronary artery disease) Social History Household Members: Spouse Housing: House Are you a primary progressive care unit registered nurse to a significant other at home: No Do you presently have visiting nurse or other home services: No Alcohol intake: never Comment: blind right eye Patient Tobacco Use Status: Former Tobacco user Tobacco use type: Cigarette e-Cigarette/Vaping Use: Never Used Substance Use Type: Marijuana Advance Directives Date on File: 04/14/21 service: No Current occupational status: retired Review of Systems Const Reports as per [facility] Eyes Reports as per HPI Card Reports as per HPI GI Reports as per HPI Reports as per HPI Neuro Reports as per HPI Psych Reports no additional complaints Endo Reports as per HPI Physical Exam Const General: cooperative, healthy appearing, comfortable, no acute distress, well developed, alert and awake Orientation/consciousness: patient oriented x3 Limitations: ambulation with cane HEENT Head: Yes normal to inspection, Yes normocephalic and Yes atraumatic Ears: hearing grossly normal bilaterally Eyes General: appearance normal, both eyes and all related structures Neck Neck: Yes normal visual inspection and Yes trachea midline Chest Chest palpation & inspection: normal inspection of the chest Resp Effort & Inspection: normal respiratory effort and able to speak in complete sentences Cardio Rate: regular rate GI Inspection: Yes normal to inspection General: Yes no CVA tenderness Back/Spine/Pelvis Back: no CVA tenderness Skin General skin exam: no rashes or lesions noted Neuro General: patient oriented x3 Extrem General: Yes normal to inspection Psych Appearance: grossly normal and well kempt Mental Status: mental status grossly normal Speech and movement: Normal speech and movement present and Clear speech present Affect: normal affect Attitude: cooperative Thought process: Normal thought process present Thought content: Normal thought content present Insight: Fair insight present (Psych) Judgement: Fair judgement present (Psych) Results AMB Urinalysis, Automated UA Leukoctes 0 Angelika/uL Last Edit by Charley Delgadillo on 10/14/24 13:50 UA Nitrite Negative Last Edit by Charley Delgadillo on 10/14/24 13:50 UA Urobilinogen 17 mg/dL Last Edit by Charley Delgadillo on 10/14/24 13:50 UA Protein 1 mg/dL Last Edit by Charley Delgadillo on 10/14/24 13:50 UA pH 5.0 Last Edit by Charley Delgadillo on 10/14/24 13:50 UA Blood 0 Ambrocio/uL Last Edit by Charley Delgadillo on 10/14/24 13:50 UA Specific Round O 1.010 Last Edit by Charley Delgadillo on 10/14/24 13:50 UA Ketone Negative Last Edit by Charley Delgadillo on 10/14/24 13:50 UA Bilirubin 0 mg/dL Last Edit by Charley Delgadillo on 10/14/24 13:50 UA Glucose 15 mg/dL Last Edit by Charley Delgadillo on 10/14/24 13:50 Results Reviewed Results Reviewed: Laboratory Last Values Urine pH (Auto) 5.0 10/14/24 08:23 Specific Round O (Auto) 1.010 10/14/24 08:23 Urine Protein (Auto) 1 mg/dL 10/14/24 08:23 Glucose (UA)(Auto) 15 mg/dL 10/14/24 08:23 Urine Ketones (Auto) Negative 10/14/24 08:23 Urine Blood (Auto) 0 Ambrocio/uL 10/14/24 08:23 Urine Nitrite (Auto) Negative 10/14/24 08:23 Urine Bilirubin (Auto) 0 mg/dL 10/14/24 08:23 Urine Urobilinogen (Auto) 17 mg/dL 10/14/24 08:23 Leukocyte Esterase (Auto) 0 Angelika/uL 10/14/24 08:23 Assessment & Plan Assessment & Plan (1) Neurogenic bladder: Code(s): N31.9 - Neuromuscular dysfunction of bladder, unspecified Category: Medical (2) BPH (benign prostatic hyperplasia): Code(s): N40.0 - Benign prostatic hyperplasia without lower urinary tract symptoms Category: Medical (3) BPH w urinary obs/LUTS: Code(s): N40.1 - Benign prostatic hyperplasia with lower urinary tract symptoms; N13.8 - Other obstructive and reflux uropathy Category: Medical (4) Urinary retention with incomplete bladder emptying: Code(s): R33.9 - Retention of urine, unspecified Category: Medical Plan In office urinalysis results reviewed with the patient today; as noted above. PVR 127 mL. We discussed potential causes and affects of incomplete bladder emptying. Continue with bethanechol and Flomax as prescribed. Recent PSA results reviewed with the patient today; as noted above. We did discussed slight increase in PSA over the last year and potential causes as well as further treatment options and risks and benefits of these treatment options. Will continue with surveillance monitoring. He denies any bothersome urinary issues or concerns. He reports be happy with current voiding parameters. We discussed attempting to double void to assist with bladder emptying. All questions were answered. Will obtain PSA in 6 months. Follow-up in 6 months with PSA and PVR; or sooner with any issues, concerns, and or questions. Orders: Orders AMB Urinalysis Automated Today Z13.9 - Encounter for screening, unspecified Prostate Specific Antigen Today N40.0 - Benign prostatic hyperplasia without lower urinary tract symptoms Patient Instructions: The patient had an opportunity to ask questions regarding the treatment plan. All questions were answered. Physical exam, labs, and imaging were discussed and reviewed in detail. As well as risks, benefits, and discussion of treatment choices. No major barriers to understanding were identified. The patient expressed understanding and agreement with the above treatment plan. The patient was made aware they should contact our office by phone for worsening of their current condition, the appearance of new symptoms, or with any questions or concerns. Compliance is encouraged with any medications and follow up testing that is ordered. It is a privilege to be allowed the opportunity to participate in? your urological care.? Again, if you have any questions or concerns If you have any questions or concerns please do not hesitate to contact me. The office is [phone]. This note is constructed using voice recognition software. While every effort has been made to ensure accuracy post form remover errors may have been included. Yours sincerely, FAROOQ Pavon Coding Level of Care Code Est Pt Level 3 (35779) Complex EM visit Add On G2211 Diagnoses Neurogenic bladder N31.9 BPH (benign prostatic hyperplasia) N40.0 BPH w urinary obs/LUTS N40.1; N13.8 Urinary retention with incomplete bladder emptying R33.9
--- OUTSIDE RECORDS SUMMARY | 2024-10-14 15:14 | XMS_ITS | Patient Health Record ---
Author Organization [facility] lito Pearl[facility]oldsmith Address [address] [place] [address] Care Team Providers Care Starbucks Clerk Name Role Phone Claude OLEA, Dileep Primary Care Provider Ami Mcdonald Unavailable [phone] Allergies No Known Allergies Results Component Value Reference Range Notes HEMOGLOBIN A1C (GLYCOHEMOGLO BIN) Reviewed date:05/26/2024 12:07:01 PM Interpretation: Performing Lab: Notes/Report: HEMOGLOBIN A1C % (HH) 6.0 HEMOGLOBIN A1C (GLYCOHEMOGLO BIN) Reviewed date:08/25/2024 02:08:12 PM Interpretation: Performing Lab: Notes/Report: HEMOGLOBIN A1C % (HH) 5.5 HEMOGLOBIN A1C (GLYCOHEMOGLO BIN) Reviewed date:02/14/2024 02:58:16 PM Interpretation: Performing Lab: Notes/Report: TOTAL HEMOGLOBIN (HGBA1C) 6.0 Reason For Referral No Information Medications Medication [...] MG Oral for 90 Active Dexcom G7 [place] - as directed Active Aspirin 81 MG [...] Polyneuropathy due to type 2 diabetes mellitus (918766699) Type 2 diabetes mellitus with diabetic polyneuropathy (E11.42) Active confirmed Problem Unsteadiness present (530201007) Unsteady gait (R26.81) Active confirmed Problem 004353808 Amputation of to e of left foot (S98.132A) Active confirmed Vital Signs Blood pressure diastolic 50 mm Hg 08/25/2024 Height 5 ft 10 in in 08/25/2024 Blood pressure systolic 130 mm Hg 08/25/2024 Weight 244 lbs 08/25/2024 BMI 35.01 kg/m2 08/25/2024 Procedures Procedure Date Ordered Date Performed Result Body Sit e 33563-BWPZPMD NAIL, 6 OR MORE 11/12/2023 N/A 66795-BLVR SKIN LESIONS, 2 TO 4 11/12/2023 N/A 19938-QUNOMTU NAIL, 6 OR MORE 02/14/2024 N/A 42794-EHLG SKIN LESIONS, 2 TO 4 02/14/2024 N/A 65866-LYUPNNA NAIL, 6 OR MORE 05/26/2024 N/A 36269-KMAY SKIN LESIONS, 2 TO 4 05/26/2024 N/A 76280-JVIYJJR NAIL, 6 OR MORE 08/25/2024 N/A 38820-QRAV SKIN LESIONS, 2 TO 4 08/25/2024 N/A Encounters Encounter Location Date Provider Diagnosis [address] [address] 11/12/2023 Ami Black Type 2 diabetes mellitus with diabetic polyneuropathy E11.42 ; Tinea unguium B35.1 ; Xerosis of skin L85.3 and Amputation of toe of left foot S98.132A [address] [address] 02/14/2024 Ami Black Type 2 diabetes mellitus with diabetic polyneuropathy E11.42 ; Tinea unguium B35.1 and Amputation of toe of left foot S98.132A [address] [address] 05/26/2024 Ami Black Type 2 diabetes mellitus with diabetic polyneuropathy E11.42 ; Unsteady gait R26.81 ; Tinea unguium B35.1 ; Amputation of toe of left foot S98.132A ; Hx of falling Z91.81 and Muscle weakness M62.[address] [address] 08/25/2024 Ami Black Type 2 diabetes mellitus [...] Treatment Pending Test Test Name Order Date 55545-GOEBPUV NAIL, 6 OR MORE 07/26/2023 96690-QWYKHMV NAIL, 6 OR MORE 11/12/2023 08111-HGOYYEZ NAIL, 6 OR MORE 02/14/2024 35681-WLGKPLV NAIL, 6 OR MORE 05/26/2024 30910-AZDBRPX NAIL, 6 OR MORE 08/25/2024 23770-TZQK SKIN LESIONS, 2 TO 4 07/26/19 24 23608-NVZY SKIN LESIONS, 2 TO 4 08/26/19 25 32395-MUWL SKIN LESIONS, 2 TO 4 05/26/19 25 23508-KNIB SKIN LESIONS, 2 TO 4 02/14/20 24 36715-FXOX SKIN LESIONS, 2 TO 4 11/12/19 Next Appt Details Provider Name:Ami Almazan , 11/27/2024 01:00:00 PM, [address] [place], [address], Insurance Providers Payer Name Payer Address Payer Phone Subscriber Number Group Number Insured Name Patient Relationship to Insured Coverage Start Date Coverage End Date [employer] Medicare [id number] [address] [address] [place] [address] [id number] John Faulkner Self - patient is the [...]
== END 2024-10-14 14:18 | disposition home or self-care (01) ==
LOC: HO.HUSH 13:23
PROVIDERS: PCP Internal Medicine; Visit Provider Nurse Practitioner Family
DX: N31.9 Neuromuscular dysfunction of bladder, unspecified (principal); N40.0 Benign prostatic hyperplasia without lower urinary tract symptoms; N40.1 Benign prostatic hyperplasia with lower urinary tract symptoms; N13.8 Other obstructive and reflux uropathy; R33.9 Retention of urine, unspecified; Z13.9 Encounter for screening, unspecified
CPT/HCPCS: 99213; G2211

== ENCOUNTER → 2024-10-14 13:22 | Outpatient (BNVA) | payer MEDICARE, SELFPAY | PROVIDERS: PCP Internal Medicine; Visit Provider Nurse Practitioner Family | DX: N40.1 Benign prostatic hyperplasia with lower urinary tract symptoms (principal); N13.8 Other obstructive and reflux uropathy; R33.9 Retention of urine, unspecified; N31.9 Neuromuscular dysfunction of bladder, unspecified | CPT/HCPCS: 81003; 99212 ==

== ENCOUNTER 2025-01-26 06:55 | Day surgery (SDC) | payer MEDICARE, SELFPAY ==
--- OUTSIDE RECORDS SUMMARY | 2024-12-05 07:06 | XMS_ITS | Clinical Summary ---
Author Organization [facility] Address [address] [place] [address], [place] [address] Care Team Providers Care Strategic Account Director Name Role Phone Unavailable Primary Care Provider Unavailabl e Medications amLODIPine (NORVASC) 10 MG tablet TAKE 1 TABLET EVERY DAY 90 tablet 3 08/11/2020 Active olmesartan (BENICAR) 40 MG tablet TAKE 1 TABLET BY MOUTH EVERY DAY 90 tablet 3 03/21/2024 Active Family History Relation Status Comments Father Mother Social History Tobacco Use Types Packs/Day Years Used Date Smoking Tobacco: Unknown Sex and Gender Information Value Date Recorded Sex Assigned at Not on file Legal Sex Male 4:58 PM EST Gender Identity Not on file Sexual Orientation Not on file Plan of Treatment Health Maintenance Due Date Last Done Comments Pneumococcal Vaccine: 50+ Ye ars (1 of 2 - PCV) 01/30/1964 Influenza Vaccine (#1) 2024 Hepatitis B Vaccine Aged Out No longe r eligible based on patient's age to complete this topic Insurance [id number] Medicare [facility] Medicare
--- OUTSIDE RECORDS SUMMARY | 2024-12-05 07:06 | XMS_ITS | Patient Health Record ---
Author Organization [facility] Address [address] [place] [address] Care Team Providers Care Escort Car Driver Name Role Phone Claude OLEA, Dileep Primary Care Provider Ami Mcdonald Unavailable [phone] Allergies No Known Allergies Results Component Value [...] Duration) Notes Start Date End Date Status Spironolactone 50 MG Oral; Duration: 90 Active Tamsulosin HCl 0.4 MG Oral; Duration: 90 Active BD Insulin Syringe MicroFine 28G X 1/2 1 ML ; Duration: 90 Active Omeprazole 20 MG Oral; Duration: 90 Active Ammonium Lactate 12 % 1 application Externally Twice a day; Duration: 30 days Active Metoprolol Succinate ER 200 MG Oral; Duration: 90 Active Bethanechol Chloride 50 MG Oral; Duration: 90 Active NIFEdipine ER 60 MG Oral; Duration: 90 Active Bumetanide 1 MG Oral; Duration: 90 Active Timolol Maleate 0.5 % Ophthalmic; Durati on: 90 Active Atorvastatin Calcium 40 MG Oral; Duration: 90 Active Tresiba 100 UNIT/ML as directed Subcutaneous Active Fluticasone Furoate Active Walker as directed 05/26/2024 Active NovoLOG Active Physical Therapy . . . 2-3x/week; Duration: 3-4 weeks Active hydrALAZINE HCl 100 MG Oral; Duration: 90 Active Olmesartan Medoxomil 40 MG Oral; Duration: 90 Active Dexcom G7 Ip Lit[employer] Associate - as directed Active Aspirin 81 MG 1 tablet Orally Once a day; Duration: 30 day(s) Active Fish Oil 1000 MG 1 capsule Orally Thr ee times a day; Duration: 30 day(s) Active Gemfibrozil 600 MG Oral; Duration: 90 Not-Taking Dexcom G7 Sensor - as directed Active Lantus 100 UNIT/ML Subcutaneous; Durati on: 75 Not-Taking Spironolactone 25 MG 1 tablet Orally; Duration: 30 day(s) Active HumaLOG 100 UNIT/ML Injection; Duration: 100 Not-Taking Jardiance Not-Taking Immunizations Vaccine Route Administration Date Status Comme nts Influenza Unknown 12/29/2022 Administered Influenza Unknown 12/30/2023 Administered Social History Tobacco Use: Social History [...] Polyneuropathy due to type 2 diabetes mellitus (072537799) Type 2 diabetes mellitus with diabetic polyneuropathy (E11.42) Active confirmed Problem Unsteady gait (04198503) Unsteady gait (R26.81) Active confirmed Problem Traumatic amputation of toe OR toes without complication (18281258) Amputation of toe of left foot (S98.132A) Active confirmed Vital Signs Blood pressure diastolic 55 mm Hg 11/27/2024 Height 5 ft 10 in in 11/27/2024 Blood pressure systolic 128 mm Hg 11/27/2024 Weight 240 lbs 11/27/2024 BMI 34.43 kg/m2 11/27/2024 Procedures Procedure Date Ordered Date Performed Result Body Sit e 75820-BDHPYLK NAIL, 6 OR MORE 02/14/2024 N/A 15111-RMBK SKIN LESIONS, 2 TO 4 02/14/2024 N/A 05144-IWMAKBM NAIL, 6 OR MORE 05/26/2024 N/A 55175-IQDY SKIN LESIONS, 2 TO 4 05/26/2024 N/A 26075-KAVJLOO NAIL, 6 OR MORE 08/25/2024 N/A 91343-EUFJ SKIN LESIONS, 2 TO 4 08/25/2024 N/A 16961-IDJOVPS NAIL, 6 OR MORE 11/27/2024 N/A 78812-TNXE SKIN LESIONS, 2 TO 4 11/27/2024 N/A Encounters Encounter Location Date Provider Diagnosis [address] [address] 02/14/2024 Amihima Almazan Type 2 diabetes mellitus with diabetic polyneuropathy E11.42 ; Tinea unguium B35.1 and Amputation of toe of left foot S98.132A [address] [address] 05/26/2024 Ami Black Type 2 diabetes mellitus with diabetic polyneuropathy E11.42 ; Unsteady gait R26.81 ; Tinea unguium B35.1 ; Amputation of toe of left foot S98.132A ; Hx of falling Z91.81 and Muscle weakness M62.[address] [address] 08/25/2024 Ami Black Type 2 diabetes mellitus with diabetic polyneuropathy E11.42 ; Unsteady gait R26.81 ; Tinea unguium B35.1 ; Amputation of toe of left foot S98.132A ; Hx of falling Z91.81 and Muscle weakness M62.[address] [address] 11/27/2024 Ami Black Type 2 diabetes mellitus with diabetic polyneuropathy E11.42 ; Unsteady gait R26.81 ; Tinea unguium B35.1 ; Amputation of toe of left foot S98.132A ; Hx of falling Z91.81 and Muscle weakness M62.81 Assessments Encounter Date Diagnosis (ICD Code) Assessment Notes Treatment Notes Treatment Clinical Notes Section Notes 02/14/2024 Type 2 diabetes mellitus with diabetic polyneuropathy (ICD-10 - E11.42) 02/14/2024 Tinea unguium (ICD-10 - B35.1) 05/26/2024 Type 2 diabetes mellitus with diabetic polyneuropathy (ICD-10 - E11.42) 05/26/2024 Unsteady gait (ICD-10 - R26.81) 08/25/2024 Type 2 diabetes mellitus with diabetic polyneuropathy (ICD-10 - E11.42) 08/25/2024 Unsteady gait (ICD-10 - R26.81) 11/27/2024 Type 2 diabetes mellitus with diabetic polyneuropathy (ICD-10 - E11.42) 11/27/2024 Unsteady gait (ICD-10 - R26.81) 11/27/2024 Tinea unguium (ICD-10 - B35.1) 08/25/2024 Tinea unguium (ICD-10 - B35.1) 05/26/2024 Tinea unguium (ICD-10 - B35.1) 02/14/2024 Amputation of toe of left foot (ICD-10 - S98.132A) 05/26/2024 Amputation of toe of left foot (ICD-10 - S98.132A) 08/25/2024 Amputation of toe of left foot (ICD-10 - S98.132A) 11/27/2024 Amputation of toe of left foot (ICD-10 - S98.132A) 11/27/2024 Hx of falling (ICD-10 - Z91.81) 08/25/2024 Hx of falling (ICD-10 - Z91.81) 05/26/2024 Hx of falling (ICD-10 - Z91.81) 05/26/2024 Muscle weakness (ICD-10 - M62.81) 08/25/2024 Muscle weakness (ICD-10 - M62.81) 11/27/2024 Muscle weakness (ICD-10 - M62.81) Plan Of Treatment Pending Test Test Name Order Date 50370-CHZRONL NAIL, 6 OR MORE 07/26/2023 52702-QYHSTNP NAIL, 6 OR MORE 11/12/2023 88711-WAZFUNH NAIL, 6 OR MORE 02/14/2024 88187-IWEIQXM NAIL, 6 OR MORE 05/26/2024 72704-KDOPMYR NAIL, 6 OR MORE 08/25/2024 00862-PPDPAZF NAIL, 6 OR MORE 11/27/2024 25461-NCBS SKIN LESIONS, 2 TO 4 07/26/19 24 41099-AVVD SKIN LESIONS, 2 TO 4 11/28/19 17127-ZCCG SKIN LESIONS, 2 TO 4 08/26/19 25894-LGTE SKIN LESIONS, 2 TO 4 05/26/19 25 45140-WEQS SKIN LESIONS, 2 TO 4 02/14/20 24 35247-ZSZI SKIN LESIONS, 2 TO 4 11/12/19 Next Appt Details Provider Name:Ami Almazan , 03/05/2025 02:15:00 PM, [address], [place], [address], Insurance Providers Payer Name Payer Address Payer Phone Subscriber Number Group Number Insured Name Patient Relationship to Insured Coverage Start Date Coverage End Date [employer] Medicare [id number] [address] [address] [place] [address] [id number] John Faulkner Self - patient is the [...]
--- OUTSIDE RECORDS SUMMARY | 2024-12-05 07:06 | XMS_ITS | Clinical Summary ---
Author Organization [facility] [address] [place] [address] [place] [phone] Phone Care Team Providers Care It Project Coordinator Name Role Phone Elías Arce MD Primary Care Provider [phone] Allergies No known active allergies Medications omeprazole (PriLOSEC) [address] capsule Take 1 capsule (20 mg total) by mouth 1 (one) time each day. 10/26/19 24 Active insulin syringes, disposable, 1 mL syringe USE 5 SYRINGES FOR INJECTIONS UNDER THE SKIN DAILY 09/14/19 24 Active tamsulosin (FLOMAX) 0.4 mg 24 hr capsule Take 1 Capsule by mouth daily. Take 30 mins after same meal every day. Active cholecalciferol (VITAMIN D-3) 25 mcg (1,000 unit) tablet Take 1 tablet (1,000 Units total) by mouth 1 (one) time each day. Active blood-glucose meter,continuous (Dexcom G7 Nursery Laborer) misc by Does not apply route. Active blood-glucose sensor (Dexcom G7 Sensor) device by Does not apply route. Active bethanechol (URECHOLINE) 50 mg tablet Take 1 tablet (50 mg total) by mouth 2 (two) times a day. Active omega-3 acid ethyl esters (LOVAZA) 1 gram capsule Take by mouth. 03/18/20 21 Active olmesartan (BENICAR) 40 mg tablet Take 1 tablet (40 mg total) by mouth 1 (one) time each day. 01/14/20 21 Active aspirin 81 mg EC tablet 1 TABLET DAILY 07/30/19 07 Active timolol (TIMOPTIC) 0.5 % ophthalmic solution - Route: apply 1 Drop to the eye daily. - Ophthal Active fluticasone propionate (FLONASE) 50 mcg/actuation nasal spray Administer 1 spray into affected nostril(s) 1 (one) time each day. 02/08/20 24 2024 Active atorvastatin (LIPITOR) 40 mg tablet Take 1 tablet (40 mg total) by mouth 1 (one) time each day. at bedtime. 90 tablet 1 08/05/19 25 Active insulin degludec (TRESIBA FlexTouch U-200) 200 unit/mL (3 mL) CONCENTRATED injection penIndications:Ty pe 2 diabetes mellitus with neurological manifestations (CMS/HCC V24, CMS/HCC V28) Inject 40 Units under the skin 2 (two) times a day. 75 mL 1 08/15/19 25 Active metoprolol succinate (TOPROL-XL) 200 mg 24 hr tablet Take 0.5 tablets (100 mg total) by mouth 1 (one) time each day. 90 tablet 2 08/19/19 25 Active hydrALAZINE (APRESOLINE) 100 mg tablet Take 1 tablet (100 mg total) by mouth 3 (three) times a day. 270 tablet 2 08/19/19 25 Active empagliflozin (Jardiance) 10 mg tablet Take 1 tablet (10 mg total) by mouth 1 (one) time each day in the morning. 90 tablet 1 08/19/19 25 Active pen needle, diabetic 31 gauge x 5/16 needleIndications :Type 2 diabetes mellitus with neurological manifestations (CMS/HCC V24, CMS/HCC V28) Use to inject 1-4 times daily as directed 100 each 11 09/06/19 25 Active pen needle, diabetic 31 gauge x 5/16 needleIndications :Type 2 diabetes mellitus with neurological manifestations (CMS/HCC V24, CMS/HCC V28) Use to inject 1-4 times daily as directed 400 each 3 09/06/19 25 Active pen needle, diabetic (BD Ultra-Fine Short Pen Needle) 31 gauge x 5/16 needle Use to inject 1-4 times daily as directed 400 each 3 09/06/19 25 Active NIFEdipine CC (ADALAT CC) 60 mg 24 hr tablet Take 1 tablet (60 mg total) by mouth 1 (one) time each day before breakfast. Do not crush, chew, or split. 90 tablet 3 09/16/19 25 2025 Active insulin aspart (NovoLOG U-100 Insulin aspart) 100 unit/mL injectionIndicati ons:Type 2 diabetes mellitus with neurological manifestations ([facility] V24, [facility] V28) Three times a day before meals, Max Up to 50 units a day; 3 months supply please 45 mL 09/18/19 Active glucose blood test stripIndications: Type 2 diabetes mellitus with neurological manifestations ([facility] V24, [facility] V28) Use as instructed up to 3 times a day 100 each 12 09/18/192025 Active spironolactone (ALDACTONE) 50 mg tablet Take 1 tablet (50 mg total) by mouth 1 (one) time each day. 90 tablet 1 11/06/19 25 Active bumetanide (BUMEX) 1 mg tablet TAKE 1 TABLET BY MOUTH EVERY DAY 90 tablet 3 12/03/19 25 Active bumetanide (BUMEX) 1 mg tablet Take 1 Tablet by mouth daily for 360 days. 02/22/20 23 2024 Discontinued Active Problems Problem Noted Date Diagnosed Date Chronic heart failure with p reserved ejection fraction ([facility] V24, [facility] V28) 05/16/2024 Assessment & Plan (05/16/2024 2:00 PM EST): Patient presented to the emergency room fluid overloaded and experiencing some dyspnea on exertion. He was diuresed with furosemide and then started back on his regular medication regiment. Has a order desk caller that he reports she has not been able to see in over a year. I need to update his labs to assess his kidney function. Does have a baseline of creatinines around 1.5-1.6. I went over at length with the patient about starting to weigh himself every day, and about avoiding food content that is high in sodium. Also educated him to start adhering to a cardiac healthy diet as best that he is able to. I am going to add in an SGLT2 inhibitor today. 10 mg p.o. daily. Could look to add in Entresto, pending kidney values. I will update an echocardiogram. CHF (congestive heart failure) ([facility] V24, [facility] V28) 05/15/2024 SOB (shortness of breath) 05/14/2024 DM (diabetes mellitus), type 2 with peripheral vascular complications ([facility] V24, [facility] V28) 02/08/2024 DNR (do not resuscitate) 02/04/2022 Overview (02/08/2024): Completed 01/31/22 Tubular adenoma of colon 02/04/2022 Overview (02/08/2024): 04/29/20: 4 tubular adenomas (Dr. Chavez) - repeat in 1-2 years 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 08/2019 Overview (02/08/2024): 04/29/[address] Chavez Obesity (BMI 30.0-34.9) 02/02/2020 Mixed hyperlipidemia 09/10/2018 Overview (02/08/2024): Last Assessment & Plan: Most recent lipid profile indicates reasonable control on current dose of atorvastatin 40 mg at bedtime, gemfibrozil 600 mg twice daily, fish oil supplements 1000 mg daily- Continue this regimen along with ongoing attempts at blood sugar control and dietary modification Assessment & Plan (05/16/2024 2:00 PM EST): Continue on current medication regimen. Type 2 diabetes mellitus wit h neurological manifestations ([facility] V24, [facility] V28) 06/14/2018 Overview (02/08/2024): Bilateral LE neuropathy PAD (peripheral artery disease) ([facility] V24) Overview (02/08/2024): - Followed by Dr. Dowd at [facility] -Status post peripheral angiography on 05/05/2018 with atherectomy of the left distal superficial femoral artery and above the knee popliteal artery, balloon angioplasty of the left superficial femoral and above knee popliteal artery, balloon angioplasty of the left posterior tibial artery, showing otherwise bilateral common iliac, hypogastric, and external iliac arteries being patent with 30% stenosis of the right common iliac- Performed for symptoms of claudication -Subsequent repeat peripheral angiography on 06/19/2018 with balloon angioplasty of the right anterior tibial artery, right distal superficial femoral and popliteal arteries -S/p left carotid endarterectomy on 09/16/2018 Bilateral carotid artery stenosis 03/18/2018 Overview (02/08/2024): As of July 2021, following with Dr. Dowd s/p left CEA in August 2018 Sinus bradycardia 03/11/2018 Overview (02/08/2024): -Has been on extremely high doses of Toprol-XL post CABG for unclear reasons -In following his flow sheet trends, his heart rate has been slowly declining at rest over the past several years -He has been largely asymptomatic from this however Last Assessment & Plan: Continues to not have symptoms suggestive of bradycardia, continue to cautiously monitor on current dose of Toprol-XL A-fib (CMS/HCC V24, CMS/HCC V28) 03/30/2011 Overview (02/08/2024): -Post CABG- 2006, then resolved. - Transiently anticoagulated for a period of time after CABG but no recurrence since then so anticoagulation has been discontinued CKD (chronic kidney disease) stage 3, GFR 30-59 ml/min (CMS/HCC V24, CMS/HCC V28) 03/30/2011 Microalbuminuria 03/30/2011 Type 2 diabetes mellitus wit h renal manifestations (CMS/HCC V24, CMS/HCC V28) 11/14/2010 Overview (02/08/2024): Amputation left first toe. Right carotid artery occlusion, left carotid artery stenosis. Status post amputation of great toe, left ([facility] V24) 09/03/2008 Overview (02/08/2024): 08/19/2008 Left first toe CAD (coronary artery disease) 08/05/2006 Overview (02/08/2024): -Status post CABG in 2006 with CARIAS to the LAD, radial to the OM1 - Had a preoperative pharmacologic nuclear stress test on 06/29/2021 prior to neck surgery showing small, moderately severe apical infarct associated with apical hypokinesis and low normal systolic function of 50%; no major areas of ischemia were noted however -Most recent echocardiogram from 04/16/2018 showed mild, concentric LV hypertrophy with normal LV cavity size and systolic function, no regional wall motion abnormalities with an ejection fraction of 60%, normal RV size and systolic function, mild mitral annular calcification with trace MR, moderate left atrial enlargement, mildly dilated versus upper normal ascending aorta at 3.9 cm, normal aortic root Last Assessment & Plan: No recurrent anginal symptoms, continue current atorvastatin 40 mg at bedtime, metoprolol succinate 100 mg daily, aspirin 81 mg daily CAD (coronary artery disease) 08/05/2006 Overview (03/20/2024): -Status post CABG in 2006 with CARIAS to the LAD, radial to the OM1 - Had a preoperative pharmacologic nuclear stress test on 06/29/2021 prior to neck surgery showing small, moderately severe apical infarct associated with apical hypokinesis and low normal systolic function of 50%; no major areas of ischemia were noted however -Most recent echocardiogram from 04/16/2018 showed mild, concentric LV hypertrophy with normal LV cavity size and systolic function, no regional wall motion abnormalities with an ejection fraction of 60%, normal RV size and systolic function, mild mitral annular calcification with trace MR, moderate left atrial enlargement, mildly dilated versus upper normal ascending aorta at 3.9 cm, normal aortic root Last Assessment & Plan: No recurrent anginal symptoms. Clinically euvolemic on exam. However, we did discuss risk factor modification with regards to lipid control as well as blood pressure management-see below. Otherwise, we will continue atorvastatin 40 mg at bedtime, metoprolol 100 mg daily, baby aspirin. Assessment & Plan (05/16/2024 2:00 PM EST): Patient utilizing beta-adarsh, aspirin, statin. Should continue to adhere to a cardiac healthy diet. I would like to update pharmacological stress test potentially after his next appointment. Instructed to call 911 or go to the emergency room should the patient begin to experience chest pain or pressure lasting greater than 10 minutes does not resolve with rest. Essential hypertension, benign 05/11/2005 Overview (02/08/2024): -24 hour ambulatory blood pressure monitoring from April 2013 showing 24-hour average blood pressure of 152/63 mmHg, waking average blood pressure of 148/62 mmHg, sleeping average blood pressure 123/70 mmHg - Finally seems to be on a reasonable regimen Last Assessment & Plan: Reasonably controlled on current regimen of amlodipine 10 mg daily, metoprolol succinate 100 mg daily, hydralazine 100 mg p.o. 3 times daily, spironolactone 25 mg daily, Lasix 20 mg daily- Continue Essential hypertension, benign 05/11/2005 Overview (03/20/2024): -24 hour ambulatory blood pressure monitoring from April 2013 showing 24-hour average blood pressure of 152/63 mmHg, waking average blood pressure of 148/62 mmHg, sleeping average blood pressure 123/70 mmHg - Finally seems to be on a reasonable regimen Last Assessment & Plan: Had been well-controlled over the past several visits but quite poorly controlled today and further investigation, it sounds as though the patient has been unwittingly eating a high sodium diet. I gave him some literature about the importance of low-sodium diet and recommended a less than 1500 mg/day sodium diet. My hope is that with this intervention alone, we will not have to escalate medical therapy further. He is already on several antihypertensive agents. Continue current regimen for now. Assessment & Plan (05/16/2024 2:00 PM EST): Continue on current medication regiment. Encounters Date Type Department Care Team Description 11/05/2024 1:00 PM EDT Treatment Outpatient Rehabilitation [address] [phone] Ijeoma Davis, DRY BOSS Poor balance (Primary Dx) 11/03/2024 1:30 PM EDT Treatment Outpatient Rehabilitation [address] [phone] Heriberto Ferreira, TAMEKA Poor balance (Primary Dx) 10/27/2024 1:30 PM EDT Treatment Outpatient Rehabilitation [address] [phone] Ijeoma Davis, DRY BOSS Poor balance (Primary Dx) 10/17/2024 1:00 PM EDT Treatment Outpatient Rehabilitation - [address] [phone] Ijeoma Davis H, DRY BOSS Poor balance (Primary Dx) 10/13/2024 2:00 PM EDT Treatment Outpatient Rehabilitation - [address] [phone] Ijeoma Davis H, DRY BOSS Poor balance (Primary Dx) 10/08/2024 1:00 PM EDT Treatment Outpatient Rehabilitation - [address] [phone] Ijeoma Davis H, DRY BOSS Poor balance (Primary Dx) 09/29/2024 11:30 AM EDT Treatment Outpatient [address] [phone] Ijeoma Davis H, DRY BOSS Poor balance (Primary Dx) 09/23/2024 4:30 PM EDT Evaluation Outpatient Rehabilitation - [address] [phone] Heriberto Ferreira, PT Poor balance 09/23/2024 Plan of Care Documentation Outpatient Rehabilitation - [address] [phone] 09/17/2024 1:15 PM EDT Office Visit Endocrinology - [address] [phone] Jaycob Ferrara MD Type 2 diabetes mellitus with neurological manifestations (CMS/HCC V24, CMS/HCC V28) (Primary Dx) 09/11/2024 Telephone Nephrology - [address] [phone] Prabhjot Leroy MD Med Refill 09/05/2024 Telephone Endocrinology - [address] [phone] Tania Pena MA from Last 3 Months Immunizations Name Administration Dates Next Due Hepatitis A Adult (Havrix; V aqta) 19yo and older 12/03/2017,06/04/2017 Influenza trivalent, 0.5mL ( Fluzone High-dose) 65yo and older 01/11/2022,02/02/2020,03/16/2019,01/16,02/19/2017,01/25/2016,01/15/2015 Influenza trivalent, with pr eservative (Fluzone; Afluria) 6mo and older 08/02/2021,01/30/2014,02/26/2013,01/10,02/17/2010,01/07/2009,02/07/2008 ,01/31/2007,04/05/2006,02/24/2005 Pneumococcal conjugate 13 va lent (Prevnar 13, PCV13) 2mo and older 09/22/2015 Pneumococcal polysaccharide 23 valent (Pneumovax 23) 2yo and older 11/20/2011 Td Tetanus diptheria (Tdvax) 7yo and older 02/02/2020,04/13/2008 Surgical History Surgery Date Site/Laterality Comments CORONARY ARTERY BYPASS GRAFT 07/13/06 PROCEDURE: HISTORICAL CABG COLONOSCOPY 05/06/09 PROCEDURE: HISTORICAL COLONOSCOPY; COMMENT: adenomas; would not repeat OTHER SURGICAL HISTORY Left PROCEDURE: [place] CORONARY ENDARTERCOMY OPEN ANY METHOD ANKLE SURGERY 2001 Left PROCEDURE: HISTORICAL ANKLE SURGERY; COMMENT: with hardware ANKLE SURGERY 07/2008 Right PROCEDURE: HISTORICAL ANKLE SURGERY; COMMENT: with hardware OTHER SURGICAL HISTORY 11/07/2007 Left PROCEDURE: [place] REMOVAL IMPLANT DEEP; COMMENT: Ankle hardware removal BYPASS GRAFT 08/19/2008 Left PROCEDURE: [place] AMPUTATION TOE METATARSOPHALANGEAL JOINT ANGIOPLASTY 05/01/2018 Left PROCEDURE: HISTORICAL ANGIOPLASTY; COMMENT: LLE Medical History Medical History Date Comments Pure hypercholesterolemia 05/11/2005 DX:Pur e hypercholesterolemia Essential hypertension, benign 05/11/2005 D X:Essential hypertension, benign History of basal cell carcinoma 10/09/2016 DX:History of basal cell carcinoma; COMMENT: Right lower eye lid History of hepatitis C 02/13/2018 DX:Histor y of hepatitis C; COMMENT: Treated with Mavyret August 2017 with SVR Fibrosure F3 Type 2 diabetes mellitus wit h renal manifestations (CMS/HCC V24, CMS/HCC V28) 03/30/2011 DX:Type 2 diabetes mellitus with renal manifestations (HCC) CAD (coronary artery disease) 08/05/2006 DX :CAD (coronary artery disease); COMMENT: double coronary bypass 07/13/2006, 99% left main disease History of stroke 08/05/2006 DX:History of stroke; COMMENT: Right hemispheric, post CABG- 2006. 07/08- Right internal carotid artery occlusion, Mild stenosis left internal carotid artery 50-69%. A-fib ([facility] V24, [facility] V28) 03/30/2011 DX:A-fib ([facility]); COMMENT: Post CABG- 2006, then resolved. Bilateral carotid artery stenosis 03/18/2018 DX:Bilateral carotid artery stenosis Bradycardia 03/11/2018 DX:Bradycardia CKD (chronic kidney disease) stage 3, GFR 30-59 ml/min ([facility] V24, [facility] V28) 03/30/2011 DX:CKD (chronic kidney disea se) stage 3, GFR 30-59 ml/min ([facility]) Diabetic neuropathy ([facility] V24, [facility] V28) 11/14/2010 DX:Diabetic neuropathy ([facility]) ; COMMENT: Bilateral feet. Microalbuminuria 03/30/2011 DX:Microalbumin uria PAD (peripheral artery disea se) ([facility] V24) 05/17/2018 DX:PAD (peripheral artery di sease) ([facility]) Type 2 diabetes mellitus wit h neurological manifestations ([facility] V24, [facility] V28) 06/14/2018 DX:Type 2 diabetes mellitus with neurological manifestations ([facility]) History of skin cancer 09/17/2017 DX:Histor y of skin cancer; 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) Status post amputation of gr eat toe, left ([facility] V24) 09/03/2008 DX:Status post amputation of great toe, left ([facility]); COMMENT: 08/19/2008 Left first toe DM (diabetes mellitus), type 2 with peripheral vascular complications ([facility] V24, [facility] V28) 11/14/2010 DX:DM (diabetes mellitus), type 2 with peripheral vascular complications ([facility]); COMMENT: Amputation left first toe. Right carotid artery occlusion, left carotid artery stenosis. PVD (peripheral vascular dis ease) ([facility] V24) 03/30/2011 DX:PVD (peripheral vascular disease) ([facility]) Family History Medical History Relation Name Comments Heart attack Father Relation Name Status Comments Father Social History Tobacco Use Types Packs/Day Years Used Date Smoking Tobacco: Former Cigarettes 0.5 44.4 1 - 07/12/2006 Smokeless Tobacco: Never Tobacco Cessation:Counseling Given: Not Answered Alcohol Use Standard Drinks/Week Comments No 0 (1 standard drink = 0.6 oz pur e alcohol) Sex and Gender Information Value Date Recorded Sex Assigned at Not on file Legal Sex Male 3:17 PM EST Gender Identity Not on file Sexual Orientation Not on file Obstetrics History Last Filed Vital Signs Vital Sign Reading Time Taken Comments Blood Pressure 134/56 11/03/2024 1:00 PM EDT Pulse 71 11/03/2024 1:00 PM EDT Temperature 36.4 C (97.5 F) 09/17/2024 1:26 PM EDT Respiratory Rate 22 09/17/2024 1:26 PM EDT Oxygen Saturation 95% 11/03/2024 1:00 PM EDT Inhaled Oxygen Concentration - - Weight 104 kg (230 lb) 09/17/2024 1:26 PM EDT Height 177.8 cm (5' 10 ) 09/17/2024 1:26 PM EDT Body Mass Index 33 09/17/2024 1:26 PM EDT Plan of Treatment Upcoming Encounters Date Type Department Care Team (Late st Contact Info) Description 01/14/2025 10:00 AM EDT Consult Adult Medicine [address] [phone] Lindsay Grace MD [address] [place] [id number] 03/02/2025 1:10 PM EST Office Visit [facility] [address] [phone] Devendra Reddy NP [address] [place] [address] 03/03/2025 1:00 PM EST Office Visit Adult Medicine [address] [phone] Elías Arce MD [address] [place], [place] 03/23/2025 1:00 PM EST Office Visit Endocrinology - [address] [phone] Jaycob Ferrara MD [address] [place], [place] [id number] 08/19/2025 3:00 PM EDT Office Visit Nephrology - [address] [phone] Prabhjot Leroy MD [address] [place] [phone] Health Maintenance Due Date Last Done Comments RSV Immunization Adult Patients (1 - 1-dose 75+ series) 01/30/2020 Falls Risk Assessment 04/08/2022 Social Influencers of Health Screening 04/08/2022 Medicare Annual Wellness Visit 02/14/2024 02/13/2023 Depression Screening 04/30/2024 COVID-19 Vaccine (7 - Moderna risk 2023- season) 2024 12/27/2023, 02/08/2023, 02/13/2022, Additional history exists Diabetes: Annual Retina Eye Exam 10/16/2024 10/17/2023 Influenza Vaccine (#1) 2024 , 01/03/2023, 12/29/2022, Additional history exists Diabetes: Blood Sugar Control Test (HGBA1C) 02/14/2025 08/15/2024, 02/01/2024, 02/01/2024, Additional history exists Diabetes: Annual Foot Exam 05/26/2025 05/26/2024, Diabetes: Annual Urine Albumin-Creatinine Ratio (uACR) 08/15/2025 08/15/2024, 02/01/2024 Diabetes: Annual GFR (Glomerular Filtration Rate) 08/15/2025 08/15/2024, 05/20/2024, 02/01/2024, Additional history exists Hypertension/CHF/CAD Annual BMP Blood Test 08/15/2025 08/15/2024, 05/20/2024, 02/01/2024, Additional history exists Cholesterol Screening (Lipid Panel) 08/15/2029 08/15/2024, 02/01/2024, 02/01/2024 DTaP,Tdap,and Td Vaccines (3 - Td or Tdap) 02/01/2030 02/02/2020, 04/13/2008 Pneumococcal Vaccine: 50+ Years Completed 09/22/2015, 11/20/2011 Hepatitis C Screening Completed 03/27/2017 Hepatitis A Vaccines Aged Out 12/03/2017, 06/04/19 18 No longer eligible based on patient's age to complete this topic Zoster Vaccines Completed 10/05/2022, 07/24/2022 HIB Vaccines Aged Out No longer eligi ble based on patient's age to complete this topic HPV Vaccines Aged Out No longer eligi ble based on patient's age to complete this topic Hepatitis B Vaccines Aged Out No long er eligible based on patient's age to complete this topic IPV Vaccines Aged Out No longer eligi ble based on patient's age to complete this topic MMR Vaccines Aged Out No longer eligi ble based on patient's age to complete this topic Meningococcal ACWY Vaccine Aged Out N o longer eligible based on patient's age to complete this topic Meningococcal B Vaccine Aged Out No l onger eligible based on patient's age to complete this topic RSV Immunization Patients Under 20 months Aged Out No longer eligible based on patient's age to complete this topic Varicella Vaccines Aged Out No longer eligible based on patient's age to complete this topic Procedures Procedure Name Priority Date/Time Associated Diagnosis Comments MICROALBUMIN CREATININE URINE RATIO Routine 08/15/2024 11:03 AM EDT Type 2 diabetes mellitus with other kidney complication, unspecified whether oil heaterman insulin use ([facility] V24, [facility] V28) COMPREHENSIVE METABOLIC PANEL Routine 08/15/2024 10:36 AM EDT Type 2 diabetes mellitus with other kidney complication, unspecified whether chcf insulin use ([facility] V24, [facility] V28) Encounter for long-term (current) use of medications HEMOGLOBIN A1C Routine 08/15/2024 10:36 AM EDT Type 2 diabetes mellitus with other kidney complication, unspecified whether chcf insulin use ([facility] V24, [facility] V28) LIPID PANEL WITH REFLEX TO DIRECT LDL Routine 08/15/2024 10:36 AM EDT Mixed hyperlipidemia DIABETES EYE EXAM Routine 10/17/2023 DIABETES FOOT EXAM Routine 07/26/2023 HEPATITIS C SCREENING Routine 03/27/2017 from Last 3 Months or Most Recently Relevant to Health Maintenance Results * (ABNORMAL) Microalbumin creatinine urine ratio (08/15/2024 11:03 AM EDT) Creatinine, Urine 28.0 mg/dL LAB CHEMISTRY METHOD 08/15/2024 4:20 PM EDT [facility] Microalb, Ur 283.0(H) 0.0 - 29.0 mg/L LAB CHEMISTRY METHOD 08/15/2024 4:20 PM EDT [facility] Microalb/Crea t Ratio 1,011(H) <30 mg/g creat LAB CHEMISTRY METHOD 08/15/2024 4:20 PM EDT [facility] Urine Urine specimen obtained by clean catch procedure / Unknown Non-blood Collection / Unknown 08/15/2024 11:03 AM EDT 08/15/2024 11:03 AM EDT us Elías Arce MD LAB URINE ORDERABLES Final Resu lt [facility] [address] [place] [address], * (ABNORMAL) Lipid panel with reflex to direct LDL (08/15/2024 10:36 AM EDT) Cholesterol 104 0 - 200 mg/dL LAB CHEMISTRY METHOD 08/15/2024 1:25 PM EDT [facility] Triglycerides 144 0 - 150 mg/dL LAB CHEMISTRY METHOD 08/15/2024 1:25 PM EDT [facility] HDL 31(L) >=40 mg/dL LAB CHEMISTRY METHOD 08/15/2024 1:25 PM EDT [facility] LDL Calculated 44 0 - 100 mg/dL LAB CHEMISTRY METHOD 08/15/2024 1:25 PM EDT [facility] VLDL Cholesterol Nelson 28.8 mg/dL LAB CHEMISTRY METHOD 08/15/2024 1:25 PM EDT [facility] Non HDL Chol. (LDL+VLDL) 73 <145 mg/dL LAB CHEMISTRY METHOD 08/15/2024 1:25 PM EDT [facility] Chol/HDL Ratio 3.4 0.0 - 4.4 LAB CHEMISTRY METHOD 08/15/2024 1:25 PM EDT [facility] Blood Venous blood specimen / Unknown Venipuncture / Unknown 08/15/2024 10:36 AM EDT 08/15/2024 10:36 AM EDT us Elías Arce MD LAB BLOOD ORDERABLES Final Resu lt [facility] [address] [place] [address], * Hemoglobin A1c (08/15/2024 10:36 AM EDT) Pathologist [facility] Hemoglobin A1C 5.5 <6.5 % LAB CHEMISTRY METHOD 08/15/2024 2:08 PM EDT [facility] Mean Bld Glu Estim. 111 mg/dL LAB CHEMISTRY METHOD 08/15/2024 2:08 PM EDT [facility] Blood Venous blood specimen / Unknown Venipuncture / Unknown 08/15/2024 10:36 AM EDT 08/15/2024 10:36 AM EDT us Elías Arce MD LAB BLOOD ORDERABLES Final Resu lt [facility] [address] [place] [address], [place] [phone] * (ABNORMAL) Comprehensive metabolic panel (08/15/2024 10:36 AM EDT) Pathologist [facility] Sodium 141 133 - 145 mmol/L LAB CHEMISTRY METHOD 08/15/2024 1:25 PM EDT [facility] Potassium 4.7 3.5 - 5.5 mmol/L LAB CHEMISTRY METHOD 08/15/2024 1:25 PM [facility] Chloride 108 96 - 110 mmol/L LAB CHEMISTRY METHOD 08/15/2024 1:25 PM [facility] CO2 23 21 - 32 mmol/L LAB CHEMISTRY METHOD 08/15/2024 1:25 PM [facility] Anion Gap 10 3 - 11 LAB CHEMISTRY METHOD 08/15/2024 1:25 PM [facility] Glucose 144(H) 70 - 100 mg/dL LAB CHEMISTRY METHOD 08/15/2024 1:25 PM [facility] BUN 27(H) 5 - 25 mg/dL LAB CHEMISTRY METHOD 08/15/2024 1:25 PM [facility] Creatinine 1.56(H) 0.70 - 1.30 mg/dL LAB CHEMISTRY METHOD 08/15/2024 1:25 PM [facility] eGFR 45(L) >=60 mL/min/1. 73m2 LAB CHEMISTRY METHOD 08/15/2024 1:25 PM [facility] Comment:Calculation based on the Chronic Kidney Disease Epidemiology Collaboration (CKD-EPI) equation refit without adjustment for race. BUN/Creatinine Ratio 17.3 LAB CHEMISTRY METHOD 08/15/2024 1:25 PM EDT [facility] Calcium 9.9 8.5 - 10.5 mg/dL LAB CHEMISTRY METHOD 08/15/2024 1:25 PM EDT [facility] AST (SGOT) 19 10 - 42 unit/L LAB CHEMISTRY METHOD 08/15/2024 1:25 PM [facility] ALT (SGPT) 26 10 - 60 unit/L LAB CHEMISTRY METHOD 08/15/2024 1:25 PM T [facility] Alkaline Phosphatase 163(H) 42 - 121 unit/L LAB CHEMISTRY METHOD 08/15/2024 1:25 PM T [facility] Total Protein 7.4 6.0 - 8.0 g/dL LAB CHEMISTRY METHOD 08/15/2024 1:25 PM [facility] Albumin 4.1 3.2 - 5.0 g/dL LAB CHEMISTRY METHOD 08/15/2024 1:25 PM [facility] Total Bilirubin 0.3 0.0 - 1.4 mg/dL LAB CHEMISTRY METHOD 08/15/2024 1:25 PM [facility] Blood Venous blood specimen / Unknown Venipuncture / Unknown 08/15/2024 10:36 AM EDT 08/15/2024 10:36 AM EDT Elías Arce MD LAB BLOOD ORDERABLES Final Resu lt [facility] [address] [place] [address], * Diabetes Eye Exam (10/17/2023) Pathologist [facility] Diabetes: Annual Retina Eye Exam ABSTRACTED Historical Provider HEALTH MAINTENANCE Final Result * Diabetes Foot Exam (07/26/2023) [facility] Diabetes: Annual Foot Exam ABSTRACTED Historical Provider HEALTH MAINTENANCE Final Result * Hepatitis C Screening (03/27/2017) Hepatitis C Screening ABSTRACTED Historical Provider HEALTH MAINTENANCE Final Result from Last 3 Months or Most Recently Relevant to Health Maintenance Insurance [employer] MEDICARE Care Teams It Project Coordinator Relationship Specialty Start Date End Date Elías Arce MD [address] [place] [id number] PCP - General 02/12/1997
[2025-01-20 16:06] VITALS: BMI 34.0
--- NOTE | 2025-01-22 11:31 | HO.ANESPROP2 ---
Documented by User: Elisabeth Wilkins NP 01/22/25 13:09 HPI - Anesthesia Eval Consult details Narrative: 79 yr old male for right Ectropion Repair - Lateral Tarsal Strip - Lower Lid DNR Saw PCP 12/2024 for medical clearance: PCP note states pt has RCRI score of 2, indicative of a 5% risk of major cardiac event. CAD: s/p CABG 2006; follows with cardiology ([facility]) annually, [place] visit 04[place]2024 [place] [facility] [place]ation; echo updated 06/2024 (see below) S/P carotid endarterectomy 2019: follows with [facility] [place], last visit was 02/2024 Type 2 DM: A1C 7.5% 12/2024 Anesthesia Pre-Procedure Meds Is the patient on any of the following meds?: SGLT2 Inhib PMFSH Active Problems Active Problems: All Active Problems Parotid neoplasm (Acute) PAD (peripheral artery disease) (Acute) Bladder spasm (Acute) Neurogenic bladder (Acute) BPH (benign prostatic hyperplasia) (Acute) Bilateral carotid artery stenosis (Acute) Anemia (Acute) Acute urinary retention (Acute) Complication of Marques catheter (Acute) BPH w urinary obs/LUTS (Acute) Urinary retention with incomplete bladder emptying (Acute) CVA (cerebral vascular accident) (Acute) Iron deficiency anemia due to chronic blood loss (Acute) Peripheral vascular disease (Acute) Hyperlipidemia (Acute) High cholesterol (Acute) HTN (hypertension) (Acute) Diabetes (Acute) CAD (coronary artery disease) (Acute) Chronic kidney disease, stage 3 (Acute) Blind right eye (Acute) Past Medical History Medical History Hx: UTI (urinary tract infection) Metabolic acidosis with normal anion gap and bicarbonate losses Metabolic acidosis with increased anion gap and accumulation of organic acids Anemia Difficult Marques catheter placement H/O cataract Adenomatous colon polyp Johnson esophagus Blind right eye CAD (coronary artery disease) Iron deficiency anemia due to chronic blood loss Acute kidney injury Amputation of left great toe Hepatitis C Hyperlipidemia CVA (cerebral vascular accident) Chronic kidney disease, stage 3 Peripheral vascular disease HTN (hypertension) Diabetes High cholesterol Family History Family History Other CAD (coronary artery disease) Family history of problems with anesthesia: No Surgical History Surgical History S/P CABG x 2 Hx of cystoscopy Parotid mass (07/28/21) History of esophagogastroduodenoscopy (EGD) Hx of colonoscopy History of ankle surgery S/P carotid endarterectomy (~08/2018) S/P CABG (coronary artery bypass graft) (~2006) History of Problems with Anesthesia: No Social History Social History Household Members: Spouse Housing: House Are you a primary career development engineer to a significant other at home: No Do you presently have visiting nurse or other home services: No Alcohol intake: never Comment: blind right eye Patient Tobacco Use Status: Former Tobacco user Tobacco use type: Cigarette e-Cigarette/Vaping Use: Never Used Use of substances other than those prescribed or required for medical reasons: No Substance Use Type: Marijuana Advance Directives: No Advance Directives Information Provided: Yes Advance Directives Date on File: 04/14/21 service: No Current occupational status: retired [employer] Allergies Allergy/AdvReac Type Severity Reaction Status Date / Time No Known Allergies (No Known Allergy Verified 10/14/24 14:26 Allergies*) Active Medications: Current Medications Povidone Iodine (Povidone Iodine 5 % Ophth Soln 30 Ml Bottle) 1 appl EYE-RIGHT PREOP PRN PRN Reason: Pre-Op Surgical Implant Prophy Home Medications ?Medication ?Instructions ?Recorded ?Confirmed ?Last Taken ?Type atorvastatin 40 mg tablet 1 tab PO BEDTIME 04/22/20 01/20/25 08/04/21 History olmesartan 40 mg tablet 1 tab PO DAILY 04/22/20 01/20/25 08/04/21 History omeprazole 20 mg capsule,delayed 1 cap PO DAILY 05/24/20 01/20/25 10/10/21 History release insulin syringe-needle U-100 1 mL #10 ea 09/21/20 01/19/23 08/04/21 History 28 gauge x 1/2 metoprolol succinate 200 mg 0.5 tab PO DAILY 08/04/21 01/26/25 10/10/21 History tablet,extended release 24 hr acetaminophen 500 mg tablet 500 mg PO Q6H PRN pain 08/18/21 01/19/23 Unknown History aspirin 81 mg tablet,delayed 81 mg PO DAILY 10/04/21 01/26/25 01/26/25 06:00 History release (Adult Low Dose Aspirin) timolol maleate 0.5 % eye drops 1 drp ophthalmic (eye) QAM 09/18/22 01/20/25 Unknown History bumetanide 1 mg tablet 1 mg PO DAILY 04/24/23 01/20/25 Unknown History nifedipine 60 mg tablet,extended 60 mg PO QDAY 04/24/23 01/26/25 01/26/25 06:00 History release cholecalciferol (vitamin D3) 25 25 mcg PO DAILY 04/27/23 01/20/25 Unknown History mcg (1,000 unit) capsule spironolactone 50 mg tablet 50 mg PO DAILY 04/27/23 01/20/25 Unknown History hydralazine 100 mg tablet 100 mg PO TID 03/18/24 01/20/25 Unknown History fluticasone propionate 50 1 spray intranasal DAILY 01/20/25 01/20/25 Unknown History mcg/actuation nasal spray,suspension insulin aspart U-100 100 unit/mL subcut TID 01/20/25 01/20/25 Unknown History subcutaneous solution (Novolog U-100 Insulin aspart) insulin degludec 200 unit/mL (3 40 unit subcut BID 01/20/25 01/20/25 Unknown History mL) subcutaneous pen (Tresiba FlexTouch U-200 insulin) Exam Height,Weight and Vital Signs: Height 5 ft 10 in Weight 107.501 kg Narrative Narrative: ECHO 06/2024 Left ventricle cavity is mildly dilated. Left ventricle mild, concentric hypertrophy No obvious regional wall motion abnormalities are noted. Basal to mid anterior wall was not well-evaluated however even with contracst enhancement. There is overall low normal LV systolic function with EF 50-55%. Paradoxic septal motion is noted in keeping with toro cardiac surgery. No Doppler evidence of hemodynamically significant valve disease. There is normal pulmonary artery systolic pressure at 33 mmHg EKG 05/26/24 Sinus rhythm with occasional premature ventricular complexes. Right bundle branch block. When compared with ECG 09/10/13 PVCs now present. Right bundle branch block now present Assessment and Plan Final Anesthetic Review Family History of Problems with Anesthesia: No History of Problems with Anesthesia: No Documented by User: Jana Burton MD 01/26/25 08:31 PMFSH Past Medical History Medical History Hx: UTI (urinary tract infection) Metabolic acidosis with normal anion gap and bicarbonate losses Metabolic acidosis with increased anion gap and accumulation of organic acids Anemia Difficult Marques catheter placement H/O cataract Adenomatous colon polyp Johnson esophagus Blind right eye CAD (coronary artery disease) Iron deficiency anemia due to chronic blood loss Acute kidney injury Amputation of left great toe Hepatitis C Hyperlipidemia CVA (cerebral vascular accident) Chronic kidney disease, stage 3 Peripheral vascular disease HTN (hypertension) Diabetes High cholesterol Family History Family History Other CAD (coronary artery disease) Surgical History Surgical History S/P CABG x 2 Hx of cystoscopy Parotid mass (07/28/21) History of esophagogastroduodenoscopy (EGD) Hx of colonoscopy History of ankle surgery S/P carotid endarterectomy (~08/2018) S/P CABG (coronary artery bypass graft) (~2006) Social History Social History Household Members: Spouse Housing: House Are you a primary career development engineer to a significant other at home: No Do you presently have visiting nurse or other home services: No Alcohol intake: never Comment: blind right eye Patient Tobacco Use Status: Former Tobacco user Tobacco use type: Cigarette e-Cigarette/Vaping Use: Never Used Use of substances other than those prescribed or required for medical reasons: No Substance Use Type: Marijuana Advance Directives: No Advance Directives Information Provided: Yes Advance Directives Date on File: 04/14/21 service: No Current occupational status: retired Meds Allergies Allergy/AdvReac Type Severity Reaction Status Date / Time No Known Allergies (No Known Allergy Verified 10/14/24 14:26 Allergies*) Home Medications ?Medication ?Instructions ?Recorded ?Confirmed ?Last Taken ?Type atorvastatin 40 mg tablet 1 tab PO BEDTIME 04/22/20 01/20/25 08/04/21 History olmesartan 40 mg tablet 1 tab PO DAILY 04/22/20 01/20/25 08/04/21 History omeprazole 20 mg capsule,delayed 1 cap PO DAILY 05/24/20 01/20/25 10/10/21 History release insulin syringe-needle U-100 1 mL #10 ea 09/21/20 01/19/23 08/04/21 History 28 gauge x 1/2 metoprolol succinate 200 mg 0.5 tab PO DAILY 08/04/21 01/26/25 10/10/21 History tablet,extended release 24 hr acetaminophen 500 mg tablet 500 mg PO Q6H PRN pain 08/18/21 01/19/23 Unknown History aspirin 81 mg tablet,delayed 81 mg PO DAILY 10/04/21 01/26/25 01/26/25 06:00 History release (Adult Low Dose Aspirin) timolol maleate 0.5 % eye drops 1 drp ophthalmic (eye) QAM 09/18/22 01/20/25 Unknown History bumetanide 1 mg tablet 1 mg PO DAILY 04/24/23 01/20/25 Unknown History nifedipine 60 mg tablet,extended 60 mg PO QDAY 04/24/23 01/26/25 01/26/25 06:00 History release cholecalciferol (vitamin D3) 25 25 mcg PO DAILY 04/27/23 01/20/25 Unknown History mcg (1,000 unit) capsule spironolactone 50 mg tablet 50 mg PO DAILY 04/27/23 01/20/25 Unknown History hydralazine 100 mg tablet 100 mg PO TID 03/18/24 01/20/25 Unknown History fluticasone propionate 50 1 spray intranasal DAILY 01/20/25 01/20/25 Unknown History mcg/actuation nasal spray,suspension insulin aspart U-100 100 unit/mL subcut TID 01/20/25 01/20/25 Unknown History subcutaneous solution (Novolog U-100 Insulin aspart) insulin degludec 200 unit/mL (3 40 unit subcut BID 01/20/25 01/20/25 Unknown History mL) subcutaneous pen (Tresiba FlexTouch U-200 insulin) Exam Airway Mallampati Class: III TM Dist: <=3cm Neck ROM: Limited Heart: rrr Lungs: cta Assessment and Plan Assessment Anesthesia Assessment: Anesthesia Plan Discussed and Chart Reviewed Final Anesthetic Review NPO: Yes ASA Class: III Final Preanesthetic Review: No Changes in Pt Med Stat, Meds/Allgs Chart Reviewed, Consent Obtained/Reviewed, Anes Risks/Benef Reviewed and DNR Form (If Appl.) (limited reversal) Patient Risk: Intermediate Procedure Risk: Low Anesthetic Plan Anesthetic Plan: GA, MAC: and Agree w/ Assess. and Plan Disposition: Standard PACU
[2025-01-26 08:02] VITALS: BP 148/40; PULSE 68; RESP 16; TEMP 36.9; O2SAT 95
[2025-01-26 08:02] LABS: Glucose, Whole Blood 136 mg/dL (60-115)
[2025-01-26] MEDS: Lactated Ringers 1,000 ML 50 ML IVCONT (08:03)
--- NOTE | 2025-01-26 12:23 | MHC.SHP ---
Pre-Procedural Eval Section A - 24 Hr Update-Section A only Date of Service: 01/26/25 The patient is an INPATIENT: No Changes since office visit: No Cold of Flu in the past 2 weeks, No New Medical Problems, No Changes in Medication and No Patient answered all questions The patient has been examined within 24 hours of the surgical procedure. The History & Physical has been completed within 30 days and I have reviewed it.: Yes Section B - Complete if H&P > 30 days Chief Complaint: Senile ectropion of right lower eyelid Allergies: Allergies Allergy/AdvReac Type Severity Reaction Status Date / Time No Known Allergies (No Known Allergy Verified 10/14/24 14:26 Allergies*) Plan Diagnosis/Plan: Unchanged I have reviewed the history and physical and performed a pertinent physical examination on my patient. No changes have occurred unless specified. Time Spent With Patient Time: Total time managing care of this patient today ____ minutes.
--- NOTE | 2025-01-26 13:25 | HO.PNOPHT ---
Ophthalmology Procedure Procedure Date of Service: 01/26/25 Ophthalmology Viscoelastic: Not Applicable Ophthalmology Lenses: Not Applicable Procedure Notes: PREOPERATIVE DIAGNOSIS: Right lower lid entropion POSTOPERATIVE DIAGNOSIS: Same PROCEDURE: Right lateral tarsal strip SURGEON: Rex Murphy M.D. ANESTHESIA: MAC with Local ESTIMATED BLOOD LOSS: None COMPLICATIONS: None After obtaining informed consent, the patient was brought to the operating room suite, placed in supine position. After adequate sedation per Anesthesia, a local injection of 2% Lidocaine was given temporally to the right periorbital area. A canthotomy cantholysis then was created first utilizing a hemostat followed by excision with White scissors out to the periosteal rim. A lateral tarsal strip was created utilizing a combination of sharp and blunt dissection with Jacek scissors, as well as 15 blade. Once the lateral tarsal strip was created, double armed 5-0 goretex suture was utilized to attach the lateral tarsal strip to the lateral temporal periorbital periosteum. The tarsal was adjusted until adequate aposition of the lid to globe was achieved and sutured in place. The skin was then closed with 6-0 plain suture. Erythromycin ointment was placed on the wound. The patient tolerated the procedure well and will be followed up.
[2025-01-26 13:35] VITALS: BP 162/62; PULSE 70; RESP 16; TEMP 36.4; O2SAT 96
== END 2025-01-26 13:45 | disposition home or self-care (01) ==
PROVIDERS: PCP Internal Medicine; Visit Provider Ophthalmology
PROC: (CPT 67917; principal; 2025-01-26 09:30)
DX: H02.132 Senile ectropion of right lower eyelid (principal); H18.413 Arcus senilis, bilateral; H46.8 Other optic neuritis; Z96.1 Presence of intraocular lens; H40.052 Ocular hypertension, left eye; I10 Essential (primary) hypertension; E11.9 Type 2 diabetes mellitus without complications; E78.00 Pure hypercholesterolemia, unspecified; Z79.4 Long term (current) use of insulin; Z79.899 Other long term (current) drug therapy; Z87.891 Personal history of nicotine dependence; Z79.82 Long term (current) use of aspirin
CPT/HCPCS: 67917; 82947; J2003

== ENCOUNTER 2025-03-09 12:34 | Outpatient (REF) | payer MEDICARE, SELFPAY ==
--- OUTSIDE RECORDS SUMMARY | 2025-03-03 13:00 | XMS_ITS | Encounter Summary ---
Author Organization [facility] Address [address] [place] [phone] Care Team Providers Care Rag Room Supervisor Name Role Phone Elías Arce MD Primary Care Provider [phone] Reason for Referral * Medications - Closed Specialty Diagnoses / Procedures Referred By Amol t Referred To Contact Elías Arce MD [address] [place] [address] Phone: tel: fax: Referral ID Status Reason Start Date Expiration Date Visits Re quested Visits Authorized [id number] Closed 1 1 Reason for Visit * Reason Comments Diabetes Encounter Details Date Type Department Care Team (Late st Contact Info) Description 03/03/2025 1:00 PM EST Office Visit Adult Medicine [address] [phone] Elías Arce MD [address] [place] [address] Type 2 diabetes mellitus with stage 3b chronic kidney disease, with long-term current use of insulin (CMS/HCC V24, CMS/HCC V28) (Primary Dx); Pure hypercholesterolemia; Essential hypertension, benign; Encounter for long-term (current) use of medications; 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; Stage 3b chronic kidney disease (CMS/HCC V24, CMS/HCC V28); Chronic heart failure with preserved ejection fraction (CMS/HCC V24, CMS/HCC V28) Social History Tobacco Use Types Packs/Day Years [...] on file Sexual Orientation Not on file documented as of this encounter Last Filed Vital Signs Vital Sign Reading Time Taken Comments Blood Pressure 120/58 03/03/2025 12:53 PM EST Pulse 66 03/03/2025 12:53 PM EST Temperature 36.6 C (97.8 F) 03/03/2025 12:53 PM EST Respiratory Rate 16 03/03/2025 12:53 PM EST Oxygen Saturation 95% 03/03/2025 12:53 PM EST Inhaled Oxygen Concentration - - Weight 108 kg (238 lb) 03/03/2025 12:53 PM EST Height 177.8 cm (5' 10 ) 03/03/2025 12:53 PM EST Body Mass Index 34.15 03/03/2025 12:53 PM EST documented in this encounter Ordered Prescriptions Prescription Sig Dispense Quantity Refills Last Filled Start Date End Date fluticasone propionate (FLONASE) 50 mcg/actuation nasal spray Administer 2 sprays into each nostril 2 (two) times a day. 16 g 1 03/03/2025 omeprazole (PriLOSEC) [address] capsule Take 1 capsule (20 mg total) by mouth 1 (one) time each day. 90 each 1 03/03/2025 documented in this encounter Progress Notes * Elísa Arce MD - 03/03/2025 1:00 PM EST CHIEF COMPLAINT: Diabetes IDENTIFIER: John Faulkner is a 80 y.o. old male. HPI: Pt with diabetes pt is currently on novolog is 10- 30 units tid Pt is on tresiba 40 units Bid Pt is following endo seen last 08/2024 no change in management Last A1c 7.5 12/2024 up from previous value of 5.5 07/2024 pt notes sugars have been elevated since insurance has changed humalog to novolog and lantus to tresiba. Patient has cgm 14 day 208 Last ldl 44 07/2024 Pt is on high intensity statin with atorvastatin 40mg Pt last microalb/cr ratio 1011 07/2024 Pt is on arb Pt is following with renal Has f/u 08/27/2025 Pt with ckd stage 3b gfr 45 07/2024 Pt is up to date with ophthalmology pt w/o DR seen this year is seen annually Pt has f/u endo 03/23/2025 Pt with htn pt is on metoprolol 100mg, mg . Hydralazine 100 mg tid, olmesatan 40mg nifedipine 60mg qd , and aldactone 50mg Pt is on bumex 1mg daily Bp today is at goal @120/58 Pt denies light head/dizziness, shortness of breath , pt denies lower ext edema ROS: GENERAL: Negative for malaise, significant weight loss and fever RESPIRATORY: No cough, wheezing or shortness of breath CARDIOVASCULAR: Negative for chest pain, leg swelling and palpitations PAST MEDICAL HISTORY: Patient Active Problem List Diagnosis Date Noted Chronic heart failure with preserved ejection fraction ([facility] V24, [facility] V28) 05/16/2024 SOB (shortness of breath) 05/14/2024 DM (diabetes mellitus), type 2 with peripheral vascular complications ([facility] [place], [facility] V28) 02/08/2024 DNR (do not resuscitate) 02/04/2022 Tubular adenoma of colon 02/04/2022 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 02/02/2020 Obesity (BMI 30.0-34.9) 02/02/2020 Mixed hyperlipidemia 09/10/2018 Type 2 diabetes mellitus with neurological manifestations ([facility] V24, [facility] V28) 06/14/2018 PAD (peripheral artery disease) ([facility] V24) 05/17/2018 Bilateral carotid artery stenosis 03/18/2018 Sinus bradycardia 03/11/2018 A-fib ([facility] V[place], [facility] V28) 03/30/2011 CKD (chronic kidney disease) stage 3, GFR 30-59 ml/min ([facility] V24, [facility] V28) 03/30/2011 Microalbuminuria 03/30/2011 Type 2 diabetes mellitus with renal manifestations ([facility] V24, [facility] V28) 11/14/2010 Status post amputation of great toe, left ([facility] V24) 09/03/2008 CAD (coronary artery disease) 08/05/2006 Essential hypertension, benign 05/11/2005 SOCIAL HISTORY: Social History Tobacco Use Smoking status: Former Current packs/day: 0.00 Average packs/day: 0.5 packs/day for 44.4 years (22.2 ttl pk-yrs) Types: Cigarettes Start date: 1962 Quit date: 07/12/2006 Years since quittin.6 Smokeless tobacco: Never Substance Use Topics Alcohol use: No FAMILY HISTORY: Family Status Relation Name Status Father No partnership data on file Family History[1] ACTIVE MEDICATIONS: Medications Taking[2] ALLERGIES: Patient has no known allergies. PHYSICAL EXAM: Blood pressure 120/58, pulse 66, temperature 36.6 ??C (97.8 ??F), temperature source Temporal, resp. rate 16, height 1.778 m (70 ), weight 108 kg (238 lb), SpO2 95%. There is no height or weight on file to calculate BMI. Plan is deferred until next visit APPEARANCE: Alert and in no acute distress EYES: PERRLA, conjunctiva and sclera normal HEART: RRR with normal S1 and S2, no murmurs, no gallops, no JVD appreciated LUNG: clear to auscultation bilaterally EXTREMITIES: Extremities warm and well perfused without clubbing, cyanosis, or edema LABS: nine IMPRESSION: 1. Type 2 diabetes mellitus with stage 3b chronic kidney disease, with long-term current use of insulin ([facility] V24, [facility] V28) 2. Pure hypercholesterolemia 3. Essential hypertension, benign 4. Encounter for long-term (current) use of medications 5. 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 6. Stage 3b chronic kidney disease ([facility] V24, [facility] V28) 7. Chronic heart failure with preserved ejection fraction ([facility] V24, [facility] V28) PLAN: Pt with diabetes not optimally controllled last A1c 7.5. Pt will continue current diabetic regimen of tresiba, and novolog pt notes since due to insurance the change from humalog and lantus sugars have elevated pt has upcoming appointment with endocrine this month to address this.. Last microalb/crratio 1011 , will update microalbumin today pt is on arb .Patient with ckd stage 3b gfr last 45 pt follows with renal next appointment 07/2025. Gfr to be updated today pt with high cholesterol on a statin will check lipid profile and lft's last ldl <70 patient to continue current statin therapy Patient with htn bp today is at goal <130/80 patient will continue current regimen of metoprolol,nifedipine,hydralazine,olmesartan,aldactone and bumex. Bmp to assess renal function and lytes today Patient with CAD,HFpEF patient saw cardiology yesterday no change in management, exam today w/o si/sx of fluid overload patient denies chest pain. Patient to f/u with cardiology next year. Patient to f/u with me in 6 months Myself and my colleagues have maintained a long-term, longitudinal relationship with this patient, overseeing care of chronic conditions including diabetes,hypertension and high cholesterol. This care relationship has significantly influenced my decision making and treatment plans during today's encounter. No orders of the defined types were placed in this encounter. ADDITIONAL ORDERS: None Elías Arce MD on 03/03/2025 at 11:51 AM EST [1] Family History Problem Relation Name Age of Onset Heart attack Father [2] No outpatient medications have been marked as taking for the 03/03/25 encounter (Appointment) with Elías Arce MD. * Kinza Delgadillo MA - 03/03/2025 1:00 PM EST PA for Flonase initiated on CMM DX SOB documented in this encounter Plan of Treatment Upcoming Encounters Date Type Department Care Team (Late st Contact Info) Description 03/23/2025 1:00 PM EST Office Visit Endocrinology [address] [phone] Jaycob Ferrara MD [address] [place] [phone] 08/19/2025 3:00 PM EDT Office Visit Nephrology [address] [phone] Prabhjot Leroy MD [address] [place] [address] 09/11/2025 1:00 PM EDT Office Visit Adult Medicine South [address] [phone] Elías Arce MD [address] [place] [address] documented as of this encounter Results * (ABNORMAL) Microalbumin creatinine urine ratio (03/03/2025 1:26 PM EST) Creatinine, Urine 61.0 mg/dL LAB CHEMISTRY METHOD 03/03/2025 9:04 PM EST [facility] Microalb, Ur 156.0(H) 0.0 - 29.0 mg/L LAB CHEMISTRY METHOD 03/03/2025 9:04 PM EST [facility] Microalb/Crea t Ratio 256(H) <30 mg/g creat LAB CHEMISTRY METHOD 03/03/2025 9:04 PM EST [facility] Urine Urine specimen obtained by clean catch procedure / Unknown Non-blood Collection / Unknown 03/03/2025 1:26 PM EST 03/03/2025 1:26 PM EST us Elías Arce MD LAB URINE ORDERABLES Final Resu lt [facility] [address] [place] [address], * (ABNORMAL) Comprehensive metabolic panel (03/03/2025 1:26 PM EST) Sodium 140 133 - 145 mmol/L LAB CHEMISTRY METHOD 03/03/2025 6:28 PM [facility] Potassium 4.6 3.5 - 5.5 mmol/L LAB CHEMISTRY METHOD 03/03/2025 6:28 PM [facility] Chloride 106 96 - 110 mmol/L LAB CHEMISTRY METHOD 03/03/2025 6:28 PM [facility] CO2 26 21 - 32 mmol/L LAB CHEMISTRY METHOD 03/03/2025 6:28 PM [facility] Anion Gap 8 3 - 11 LAB CHEMISTRY METHOD 03/03/2025 6:28 PM [facility] Glucose 129(H) 70 - 100 mg/dL LAB CHEMISTRY METHOD 03/03/2025 6:28 PM [facility] BUN 25 5 - 25 mg/dL LAB CHEMISTRY METHOD 03/03/2025 6:28 PM [facility] Creatinine 1.64(H) 0.70 - 1.30 mg/dL LAB CHEMISTRY METHOD 03/03/2025 6:28 PM [facility] eGFR 42(L) >=60 mL/min/1. 73m2 LAB CHEMISTRY METHOD 03/03/2025 6:28 PM [facility] Comment:Calculation based on the Chronic Kidney Disease Epidemiology Collaboration (CKD-EPI) equation refit without adjustment for race. BUN/Creatinine Ratio 15.2 LAB CHEMISTRY METHOD 03/03/2025 6:28 PM [facility] Calcium 9.8 8.5 - 10.5 mg/dL LAB CHEMISTRY METHOD 03/03/2025 6:28 PM [facility] AST (SGOT) 17 10 - 42 unit/L LAB CHEMISTRY METHOD 03/03/2025 6:28 PM [facility] ALT (SGPT) 34 10 - 60 unit/L LAB CHEMISTRY METHOD 03/03/2025 6:28 PM [facility] Alkaline Phosphatase 150(H) 42 - 121 unit/L LAB CHEMISTRY METHOD 03/03/2025 6:28 PM [facility] Total Protein 7.3 6.0 - 8.0 g/dL LAB CHEMISTRY METHOD 03/03/2025 6:28 PM [facility] Albumin 4.0 3.2 - 5.0 g/dL LAB CHEMISTRY METHOD 03/03/2025 6:28 PM [facility] Total Bilirubin 0.4 0.0 - 1.4 mg/dL LAB CHEMISTRY METHOD 03/03/2025 6:28 PM [facility] Blood Venous blood specimen / Unknown Venipuncture / Unknown 03/03/2025 1:26 PM EST 03/03/2025 1:26 PM EST us Elías Arce MD LAB BLOOD ORDERABLES Final Resu lt [facility] [address] [place] [address], * (ABNORMAL) Lipid panel with reflex to direct LDL (03/03/2025 1:26 PM EST) Cholesterol 132 0 - 200 mg/dL LAB CHEMISTRY METHOD 03/03/2025 6:28 PM [facility] Triglycerides 283(H) 0 - 150 mg/dL LAB CHEMISTRY METHOD 03/03/2025 6:28 PM [facility] HDL 28(L) >=40 mg/dL LAB CHEMISTRY METHOD 03/03/2025 6:28 PM [facility] LDL Calculated 47 0 - 100 mg/dL LAB CHEMISTRY METHOD 03/03/2025 6:28 PM [facility] Comment:Estimated LDL Calcul ated using equation: Total cholesterol - HDL cholesterol - (Triglycerides/5) VLDL Cholesterol Nelson 56.6 mg/dL LAB CHEMISTRY METHOD 03/03/2025 6:28 PM [facility] Non HDL Chol. (LDL+VLDL) 104 <145 mg/dL LAB CHEMISTRY METHOD 03/03/2025 6:28 PM EST [facility] Chol/HDL Ratio 4.7(H) 0.0 - 4.4 LAB CHEMISTRY METHOD 03/03/2025 6:28 PM EST [facility] Blood Venous blood specimen / Unknown Venipuncture / Unknown 03/03/2025 1:26 PM EST 03/03/2025 1:26 PM EST us Elías Arce MD LAB BLOOD ORDERABLES Final Resu lt [facility] ([facility] [address] [place] [address], documented in this encounter Visit Diagnoses Diagnosis Type 2 diabetes mellitus with stage 3b chronic kidney disease, with long-term current use of insulin ([facility] V24, [facility] V28)- Primary Pure hypercholesterolemia Essential hypertension, benign Encounter for long-term (current) use of medications Encounter for long-term (current) use of other medications 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 Stage 3b chronic kidney disease ([facility] V24, [facility] V28) Chronic heart failure with preserved ejection fraction ([facility] V24, [facility] V28) documented in this encounter Discontinued Medications Medication Sig Discontinue Reason Start Date End Da te omeprazole (PriLOSEC) [address] capsule Take 1 capsule (20 mg total) by mouth 1 (one) time each day. Reorder 12/09/2024 03/03/2025 fluticasone propionate (FLONASE) 50 mcg/actuation nasal spray Administer 1 spray into affected nostril(s) 1 (one) time each day. Reorder 02/08/2024 03/03/2025 documented as of this encounter Care Teams Rag Room Supervisor Relationship Specialty Start Date End Date Elías Arce MD [address] [place] [address] PCP - General 02/12/1997 documented as of this encounter
--- NOTE | ~2025-03-09 | US_ITS ---
EXAMINATION: US EXTRACRANIAL CAROTID DUPLEX, BILATERAL CLINICAL INFORMATION: I65.23 - Occlusion and stenosis of bilateral carotid arteries COMPARISON: March 11, 2024 TECHNIQUE: Real-time ultrasound and Doppler techniques (integrating B-mode 2-D vascular images, Doppler spectral analysis and color-flow Doppler imaging) were utilized to interrogate the extracranial carotid arteries, the vertebral arteries and proximal subclavian arteries bilaterally. The degree of stenosis is determined by criteria similar to NASCET. FINDINGS: Right Side: 1. There is moderate atherosclerotic plaque seen in the bifurcation/proximal ICA region. 2. The common carotid artery PSV proximally is 72 cm/s and distally 63 cm/s. 3. The proximal internal carotid artery velocities are 410 cm/s systolic and 29 cm/s diastolic. 4. The proximal external carotid artery PSV is 107 cm/s. 5. The vertebral artery shows antegrade flow. 6. The subclavian artery waveforms are biphasic. Left Side: 1. There is moderate atherosclerotic plaque seen in the bifurcation/proximal ICA region. 2. The common carotid artery PSV proximally is 84 cm/s and distally 84 cm/s. 3a. The proximal internal carotid artery velocities are 103 cm/s systolic and 30 cm/s diastolic. 3b. The mid internal carotid artery velocities are 315 cm/s systolic and 68 cm/s diastolic. 4. The proximal external carotid artery PSV is minor 72 cm/s. 5. The vertebral artery shows antegrade flow. 6. The subclavian artery waveforms are biphasic. Peak systolic velocity is mildly increased measuring 207 cm/s. US/US carotid duplex BI IMPRESSION: RIGHT: Hemodynamically significant stenosis >= 70% involving the internal carotid artery. LEFT: Hemodynamically significant stenosis >= 70% involving the internal carotid artery. Velocity is similar to the prior. On the prior study, the right ICA was occluded without flow. There is evidence of a hemodynamically significant stenosis in the left subclavian artery, new since the prior. Electronically signed by: Nba Livingston MD 03/09/2025 01:48 PM EST
--- OUTSIDE RECORDS SUMMARY | 2025-03-09 14:43 | XMS_ITS | Encounter Summary ---
Author Organization [facility] Address [address] [place] [phone] Care Team Providers Care Apprentice Photographer Name Role Phone Elías Arce MD Primary Care Provider [phone] Reason for Visit * Reason Onset Date Comments orders 02/24/2025 Encounter Details Date Type Department Care Team ([facility] st Contact Info) Description 02/24/2025 Telephone Adult Medicine [address] [phone] Elías Arce MD [address] [place] [address] Social History Tobacco Use Types Packs/Day Years Used Date Smoking Tobacco: Former Cigarettes 0.5 44.4 1 - 07/12/2006 Smokeless Tobacco: Never Alcohol Use Standard Drinks/Week Comments No 0 (1 standard drink = 0.6 oz pur e alcohol) Sex and Gender Information Value Date Recorded Sex Assigned at Not on file Legal Sex Male 3:17 PM EST Gender Identity Not on file Sexual Orientation Not on file documented as of this encounter Progress Notes * Meg Dueñas - 02/25/2025 11:34 AM EDT Patients calling on orders status, asking for a call when orders have been put in * Maddison Zamora - 02/24/2025 9:27 AM EDT Patient wants labs to be ordered prior to appointment on 03/[address] Arce. Please call patient to let them know. documented in this encounter Plan of Treatment Upcoming Encounters Date Type Department Care Team (Late st Contact Info) Description 03/23/2025 1:00 PM EST Office Visit Endocrinology - [address] [phone] Jaycob Ferrara MD [address] [place] [address] 08/19/2025 3:00 PM EDT Office Visit Nephrology - [address] [phone] Prabhjot Leroy MD [address] [place] [address] 09/11/2025 1:00 PM EDT Office Visit Adult Medicine South - [address] [phone] Elías Arce MD [address] [place] [address] documented as of this encounter Visit Diagnoses Not on filedocumented in this encounter Care Teams Apprentice Photographer Relationship Specialty Start Date End Date Elías Arce MD [address] [place] [address] PCP - General 02/12/1997 documented as of this encounter
--- OUTSIDE RECORDS SUMMARY | 2025-03-09 14:43 | XMS_ITS | Clinical Summary ---
Author Organization [facility] Address [address] [place], [place] [id number] Phone Care Team Providers Care Fire Prevention Bureau Captain Name Role Phone Elías Arce MD Primary Care Provider + Social History Tobacco Use Types Packs/Day Years Used Date Smoking Tobacco: Never Assessed Education Answer Date Recorded Are you interested in more education? Not on magalys e 08/26/2022 Are you concerned about learning? Not on file 08/26/2022 No 08/26/2022 No 08/26/2022 Digital Access Answer Date Recorded No 09/26/2022 No 09/26/2022 Reliable internet access at home? Not on file 09/26/2022 Device with a working camera? Not on file Sex and Gender Information Value Date Recorded Sex Assigned at Not on file Legal Sex Male 8:49 AM EST Gender Identity Not on file Sexual Orientation Not on file Plan of Treatment Not on file Medical Devices Not on file Insurance [facility] MEDICARE REPLACEMENT MEDICARE REPLACEMENT MEDICARE REPLACEMENT MEDICARE REPLACEMENT [place] [id number] MEDICARE REPLACEMENT MEDICARE REPLACEMENT MEDICARE REPLACEMENT MEDICARE REPLACEMENT [place] [id number] [place] [address] MEDICARE REPLACEMENT Care Teams Fire Prevention Bureau Captain Relationship Specialty Start Date End Date Elías Arce MD [address] [place] [phone] PCP - General Internal Medicine 03/30/21 Additional Source Comments The information contained in this document represents components of the legal health record. It is not the complete legal health record.[facility]
--- OUTSIDE RECORDS SUMMARY | 2025-03-09 14:43 | XMS_ITS | Clinical Summary ---
Author Organization [facility] Address [address] [place] [address] Care Team Providers Care [employer] Conservation Laborer Name Role Phone Unavailable Primary Care Provider Unavailabl e Medications amLODIPine (NORVASC) 10 MG tablet TAKE 1 TABLET EVERY DAY 90 tablet 3 1 Active olmesartan (BENICAR) 40 MG tablet TAKE 1 TABLET BY MOUTH EVERY DAY 90 tablet 3 5 Active olmesartan (BENICAR) 40 MG tablet TAKE 1 TABLET BY MOUTH EVERY DAY 90 tablet 3 4 02/28/20 25 Discontinued Encounters Date Type Department Care Team Description 02/27/2025 Refill [facility] [address] [place] [address] Prabhjot Leroy MD from Last 3 Months Family History Relation Status Comments Father Mother Social History Tobacco Use Types Packs/Day Years Used Date Smoking Tobacco: Unknown Sex and Gender Information Value Date Recorded Sex Assigned at Not on file Legal Sex Male 4:58 PM EST Gender Identity Not on file Sexual Orientation Not on file Plan of Treatment Health Maintenance Due Date Last Done Comments Diabetes: Ophthalmology Exam 02/27/2025 Diabetes: Pedal Pulse Checked 02/27/2025 Diabetes: Sensory Foot Exam 02/27/2025 Diabetes: Visual Foot Exam 02/27/2025 Diabetes: Hemoglobin A1C 04/15/202501/14/ 025, 01/14/2025, 08/15/2024, Additional history exists Pneumococcal Vaccine: 50+ Years Completed 09/22/2015, 11/20/2011 Pneumococcal Vaccine: Peds (0 to 5 Years) and At-Risk Patients (6 to 49 Years) Discontinued 09/22/2015, 11/20/2011 Influenza Vaccine Completed 01/12/2025, , 12/29/2022, Additional history exists Hepatitis B Vaccine Aged Out No longe r eligible based on patient's age to complete this topic Procedures Procedure Name Priority Date/Time Associated Diagnosis Comments BLOOD PANEL (HC) Routine 05/10/2020 12:0 0 AM EST from Last 3 Months or Most Recently Relevant to Health Maintenance Insurance
--- OUTSIDE RECORDS SUMMARY | 2025-03-09 14:43 | XMS_ITS | Encounter Summary ---
Author Organization [facility] Address [id number] [place] [id number] Care Team Providers Care Enterprise Application Architect Name Role Phone Elías Arce MD Primary Care Provider Reason for Visit * Reason Onset Date Comments Chest Pain 03/11/2024 Encounter Details Date Type Department Care Team (Late st Contact Info) Description 03/11/2024 Nurse Triage Adult Medicine [address] [phone] Elías Arce MD [address] [place] [address] Social History Tobacco Use Types Packs/Day Years [...] as of this encounter Progress Notes * Yaima Fontenot RN - 03/11/2024 9:47 AM EST Spoke to pt He is having left sided cp / pressure and sob pt. States his sob has been for years andthe chest pressure Is for 3 months. Pt. Denies dizziness,clamminess or weakness he is completing full sentences but sounds winded pt. Has cardiac hx ,advised to be evaluated in the ER. Per protocol Pt. States he might go to the ER. But not today. I reiterated the importance of being evaluated * Yaima Fontenot RN - 03/11/2024 9:35 AM EST Reason for Disposition ??? Difficulty breathing Answer Assessment - Initial Assessment Questions 1. LOCATION: Where does it hurt? Upper left side of chest 2. RADIATION: Does the pain go anywhere else? (e.g., into neck, jaw, arms, back) No radiation stays above left breast 3. ONSET: When did the chest pain begin? (Minutes, hours or days) Approx 3 months ago 4. PATTERN: Does the pain come and go, or has it been constant since it started? Does it get worse with exertion? Constant pressure x 3 months no change intensity 5. DURATION: How long does it last (e.g., seconds, minutes, hours) Constant x 3 months 6. SEVERITY: How bad is the pain? (e.g., Scale 1-10; mild, moderate, or severe) - MILD (1-3): Doesn't interfere with normal activities. - MODERATE (4-7): Interferes with normal activities or awakens from sleep. - SEVERE (8-10): Excruciating pain, unable to do any normal activities. Mild constant 7. CARDIAC RISK FACTORS: Do you have any history of heart problems or risk factors for heart disease? (e.g., angina, prior heart attack; diabetes, high blood pressure, high cholesterol, smoker, or strong family history of heart disease) 2007 cabg x 2 8. PULMONARY RISK FACTORS: Do you have any history of lung disease? (e.g., blood clots in lung, asthma, emphysema, control pills) X smoker sob for years no changes 9. CAUSE: What do you think is causing the chest pain? Infection I was given a nasal spary 10. OTHER SYMPTOMS: Do you have any other symptoms? (e.g., dizziness, nausea, vomiting, sweating,fever, difficulty breathing, cough) Sob, no dizziness , weakness no clamminess , no n/v or diarrhea 11. : Is there any chance you are ? When was your last menstrual period? N/A Protocols used: Chest Pain-A-AH * Kiera Delgadillo - 03/11/2024 9:03 AM EST Patient call requires triage: Symptoms patient is presenting: patient is calling saying if medicine that was proscribed is not working to call back. Patient is saying he's left side of he's chest has not gotten any better. Pleasecall regarding future treatment plan. How long has patient had these symptoms?: pass couple of weeks For ALL patients calling to schedule any appointment (routine, sick visit, follow up, consult, etc.) in the outpatient setting please ask the following questions: Do you have fever of higher than 101, sore throat with difficulty swallowing or severe shortness ofbreath? no If YES to any of these above symptoms, send a message to triage and do not book. Red dot. If no, an audio or video visit should be booked. Have you had close contact with someone with Coronavirus in the last 14 days? no Have you traveled abroad? no Have you traveled recently to another state outside of [place], [place], [place], [place], [place], [place], [place]? no o If yes, did you quarantine for 14 days or have a negative covid test? no If yes to any of the above, patient is not to be scheduled in office until after 14 day quarantine or negative covid test. If pain or injury related was it due to an accident at work or from a motor vehicle accident? If yes, date of accident/Injury: No If yes, gather 3rd green party insurance information Third Green Party Information: not applicable PCP: Elías Arce MD Payor: / No coverage found. documented in this encounter Plan of Treatment Upcoming Encounters Date Type Department Care Team (Late st Contact Info) Description 03/23/2025 1:00 PM EST Office Visit Endocrinology - [address] [phone] Jaycob Ferrara MD [address] [place] [id number] 08/19/2025 3:00 PM EDT Office Visit Nephrology - [address] [phone] Prabhjot Leroy MD [address] [place] [phone] 09/11/2025 1:00 PM EDT Office Visit Adult Medicine [facility] - [address] [phone] Elías Arce MD [address] [place] [address] documented as of this encounter Visit Diagnoses Not on filedocumented in this encounter Care Teams Enterprise Application Architect Relationship Specialty Start Date End Date Elías Arce MD [address] [place] [address] PCP - General 02/12/1997 documented as of this encounter
--- OUTSIDE RECORDS SUMMARY | 2025-03-09 14:43 | XMS_ITS | Clinical Summary ---
Author Organization [facility] [address] [place] [address] [place] [phone] Phone Care Team Providers Care Dowel Setting Machine Operator Name Role Phone Elías Arce MD Primary Care Provider [phone] Allergies No known active allergies Medications insulin syringes, disposable, 1 mL syringe USE [...] each day. 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 Active [...] to the eye daily. 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 75 mL 1 08/15/19 25 Active hydrALAZINE (APRESOLINE) 100 mg tablet Take 1 tablet (100 mg total) by mouth 3 (three) times a day. 270 tablet 2 08/19/19 25 Active pen needle, diabetic 31 gauge x 5/16 needleIndications: Type 2 diabetes mellitus with neurological manifestations (CMS/HCC V24, CMS/HCC V28) Use to inject 1-4 times daily as directed 100 each 11 09/06/19 25 Active pen needle, diabetic 31 gauge x 5/16 needleIndications: Type 2 diabetes mellitus with neurological manifestations (CMS/HCC V24, CMS/HCC V28) Use to inject 1-4 times daily as directed 400 each 3 09/06/19 25 Active pen needle, diabetic (BD Ultra-Fine Short Pen Needle) 31 gauge x 5/16 needle Use to inject 1-4 times daily as directed 400 each 3 09/06/19 25 Active glucose blood test stripIndications:T ype 2 diabetes mellitus with neurological manifestations (CMS/HCC V24, CMS/HCC V28) Use as instructed up to 3 times a day 100 each 12 09/18/19 25 026 Active spironolactone (ALDACTONE) 50 mg tablet Take 1 tablet (50 mg total) by mouth 1 (one) time each day. 90 tablet 1 11/06/19 25 Active bumetanide (BUMEX) 1 mg tablet TAKE 1 TABLET BY MOUTH EVERY DAY 90 tablet 3 12/03/19 25 Active insulin aspart (NovoLOG U-100 Insulin aspart) 100 unit/mL injectionIndicatio ns:Type 2 diabetes mellitus with neurological manifestations (CMS/HCC V24, CMS/HCC V28) Three times a day before meals, Max Up to 50 units a day; 3 months supply please 45 mL 12/23/19 25 Active metoprolol succinate (Toprol XL) 100 mg 24 hr tabletIndications: 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 Take 1 tablet (100 mg total) by mouth 1 (one) time each day. Do not crush or chew. 90 each 1 01/15/20 25 026 Active atorvastatin (LIPITOR) 40 mg tablet Take 1 tablet (40 mg total) by mouth 1 (one) time each day. at bedtime. 90 tablet 1 02/19/20 25 Active NIFEdipine CC (ADALAT CC) 60 mg 24 hr tablet Take 1 tablet (60 mg total) by mouth 1 (one) time each day before breakfast. Do not crush, chew, or split. 90 tablet 1 02/19/20 25 027 Active omeprazole (PriLOSEC) [address] capsule Take 1 capsule (20 mg total) by mouth 1 (one) time each day. 90 each 1 03/03/20 25 026 Active fluticasone propionate (FLONASE) 50 mcg/actuation nasal spray Administer 2 sprays into each nostril 2 (two) times a day. 16 g 1 03/03/20 25 026 Active fluticasone propionate (FLONASE) 50 mcg/actuation nasal spray Administer 1 spray into affected nostril(s) 1 (one) time each day. 02/08/20 24 025 Discontin ued(Reord er) atorvastatin (LIPITOR) 40 mg tablet Take 1 tablet (40 mg total) by mouth 1 (one) time each day. at bedtime. 90 tablet 1 08/05/19 25 025 Discontin ued(Reord er) NIFEdipine CC (ADALAT CC) 60 mg 24 hr tablet Take 1 tablet (60 mg total) by mouth 1 (one) time each day before breakfast. Do not crush, chew, or split. 90 tablet 3 09/16/19 25 025 Discontin ued(Reord er) omeprazole (PriLOSEC) [address] capsule Take 1 capsule (20 mg total) by mouth 1 (one) time each day. 90 each 12/10/19 25 025 Discontin ued(Reord er) Active Problems Problem Noted Date Diagnosed Date Chronic heart failure with p reserved ejection fraction (CMS/[facility] V24, CMS/[facility] V28) 05/16/2024 Assessment & Plan (03/02/2025 2:45 PM EST): Patient appears euvolemic on exam. Currently utilizing spironolactone 50 mg p.o. 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 Assessment & Plan (01/14/2025 4:55 PM EDT): Continue metoprolol 100mg daily,nifedipine 60 mg daily, Hydralazine 100 mg tid, olmesatan 40mg , aldactone 50mg, bumex 1mg daily Assessment & Plan (05/16/2024 2:00 PM EST): Patient presented to the emergency room fluid overloaded and experiencing some dyspnea on exertion. He was diuresed with furosemide and then started back on his regular medication regiment. Has a plating technician that he reports she has not been [...] kidney values. I will update an echocardiogram. SOB (shortness of breath) 05/14/2024 DM (diabetes mellitus), type 2 with peripheral vascular complications ([facility] V24, [facility] V28) 02/08/2024 DNR (do not resuscitate) 02/04/2022 Overview (02/08/2024): Completed 01/31/22 Tubular adenoma of colon 02/04/2022 Overview (02/08/2024): 04/29/20: 4 tubular adenomas (Dr. Chavez) - repeat in 1-2 years 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 08/2019 Overview (02/08/2024): 04/29/[address] Chavez Assessment & Plan (01/14/2025 4:55 PM EDT): Continue omeprazole 20 mg Obesity (BMI 30.0-34.9) 02/02/2020 Mixed hyperlipidemia 09/10/2018 Overview (02/08/2024): Last Assessment & Plan: Most recent lipid profile indicates reasonable control on current dose of atorvastatin 40 mg at bedtime, gemfibrozil 600 mg twice daily, fish oil supplements 1000 mg daily- Continue this regimen along with ongoing attempts at blood sugar control and dietary modification Assessment & Plan (01/14/2025 4:55 PM EDT): Continue atorvastatin 40 mg Assessment & Plan (05/16/2024 2:00 PM EST): Continue on current medication regimen. Type 2 diabetes mellitus wit h neurological manifestations ([facility] V24, [facility] V28) 06/14/2018 Overview (02/08/2024): Bilateral LE neuropathy PAD (peripheral artery disease) ([facility] V24) Overview (02/08/2024): - Followed by Dr. Dowd at [facility] -Status post peripheral angiography on 05/05/2018 with [...] monitor on current dose of Toprol-XL A-fib ([facility] V24, [facility] V28) 03/30/2011 Overview (03/02/2025): -Post CABG- 2006, then resolved. Assessment & Plan (03/02/2025 2:44 PM EST): - Transiently anticoagulated for a period of time after CABG but no recurrence since then so anticoagulation has been discontinued CKD (chronic kidney disease) stage 3, GFR 30-59 ml/min ([facility] V24, [facility] V28) 03/30/2011 Assessment & Plan (01/14/2025 4:55 PM EDT): Continue nephrology follow-up. Microalbuminuria 03/30/2011 Type 2 diabetes mellitus wit h renal manifestations ([facility] V24, [facility] V28) 11/14/2010 Overview (02/08/2024): Amputation left first toe. Right carotid artery occlusion, left carotid artery stenosis. Assessment & Plan (01/14/2025 4:55 PM EDT): Continue insulin tresiba 40mg BID and novolog TID with meals. Continue endocrinology follow up Orders: Hemoglobin A1c; Future Status post amputation of great toe, left ([facility]/ CC V24) 09/03/2008 Overview (02/08/2024): 08/19/2008 Left first toe CAD (coronary artery disease) 08/05/2006 Overview (03/02/2025): -Status post CABG in 2006 with CARIAS [...] aorta at 3.9 cm, normal aortic root Assessment & Plan (03/02/2025 2:45 PM EST): No recurrent anginal symptoms, continue current atorvastatin 40 mg at bedtime, metoprolol succinate 100 mg daily, aspirin 81 mg daily Assessment & Plan (01/14/2025 4:55 PM EDT): Continue metoprolol 100mg daily (sent 100 mg tablet per his preference so he does not have to break the 200 mg in half), aspirin daily and atorvastatin 40 mg Continue cardiology follow-up Orders: metoprolol succinate (Toprol XL) 100 mg 24 hr tablet; Take 1 tablet (100 mg total) by mouth 1 (one) time each day. Do not crush or chew. Essential hypertension, benign 05/11/2005 Overview (03/02/2025): -24 hour ambulatory blood pressure monitoring from April 2013 showing 24-hour average blood pressure of 152/63 mmHg, waking average blood pressure of 148/62 mmHg, sleeping average blood pressure 123/70 mmHg - Finally seems to be on a reasonable regimen Assessment & Plan (03/02/2025 2:46 PM EST): Reasonably controlled on current regimen of amlodipine 10 mg daily, olmesartan 40 mg p.o. daily metoprolol succinate 100 mg daily, hydralazine 100 mg p.o. 3 times daily, spironolactone 50 mg daily, Bumex 1 mg daily- Continue Assessment & Plan (01/14/2025 4:55 PM EDT): Continue metoprolol 100mg daily,nifedipine 60 mg daily, Hydralazine 100 mg tid, olmesatan 40mg , aldactone 50mg, bumex 1mg daily His diastolic blood pressure is on the low end. This is Likely due to his multiple medications Resolved Problems Problem Noted Date Diagnosed Date Resolved Date CHF (congestive heart failur e) ([facility] V24, [facility] V28) 05/15/2024 01/14/2025 CAD (coronary artery disease) 08/05/2006 01/14/2025 Overview (03/20/2024): -Status post CABG in 2006 [...] resolve with rest. Essential hypertension, benign 05/11/2005 01/14/2025 Overview (03/20/2024): -24 hour ambulatory blood pressure [...] Encounters Date Type Department Care Team Description 03/03/2025 1:25 PM EST Lab Draw Station [address] Type 2 diabetes mellitus with stage 3b chronic kidney disease, with long-term current use of insulin (CMS/HCC V24, CMS/HCC V28); Essential hypertension, benign; Encounter for long-term (current) use of medications; Pure hypercholesterolemia; Stage 3a chronic kidney disease (CMS/HCC V24, CMS/HCC V28) 03/03/2025 1:00 PM EST Office Visit Adult Medicine [address] [phone] Elías Arce MD Type 2 diabetes mellitus with stage 3b [...] preserved ejection fraction (CMS/HCC V24, CMS/HCC V28) 03/02/2025 1:10 PM EST Office Visit [facility] - [address] [facility] [address] [place] [phone] Devendra Reddy NP Chronic heart failure with preserved ejection fraction (CMS/HCC V24, CMS/HCC V28) (Primary Dx); Atrial fibrillation, unspecified type (CMS/HCC V24, CMS/HCC V28); Essential hypertension, benign; 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 02/24/2025 Telephone Adult Medicine [address] [phone] Elías Arce MD 01/22/2025 Telephone Adult [address] [phone] Lindsay Grace MD 01/14/2025 10:00 AM EDT Consult Adult Medicine [address] [phone] Lindsay Grace MD Preop cardiovascular exam (Primary Dx); Type 2 diabetes mellitus with stage 3b chronic kidney disease, with long-term current use of insulin ([facility] V24, [facility] V28); 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; Chronic heart failure with preserved ejection fraction ([facility] V24, CMS/HCC V28); Essential hypertension, benign; 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; Stage 3a chronic kidney disease (CMS/HCC V24, CMS/HCC V28); Mixed hyperlipidemia 12/08/[address] [phone] Jaycob Ferrara MD from Last 3 Months Immunizations Immunization Administration Dates Next Due Hepatitis A Adult [...] 2 diabetes mellitus wit h renal manifestations ([facility]/HCC V24, [facility] V28) 03/30/2011 DX:Type 2 diabetes mellitus with renal manifestations (HCC) CAD (coronary artery disease) 08/05/2006 DX :CAD (coronary artery disease); COMMENT: double coronary bypass 07/13/2006, 99% left main disease History of stroke 08/05/2006 DX:History of stroke; COMMENT: Right hemispheric, post CABG- 2006. 07/08- Right internal carotid artery occlusion, Mild stenosis left internal carotid artery 50-69%. A-fib ([facility]/HCC V24, [facility] V28) 03/30/2011 DX:A-fib (HCC); COMMENT: Post CABG- 2006, then resolved. Bilateral carotid artery stenosis 03/18/2018 DX:Bilateral carotid artery stenosis Bradycardia 03/11/2018 DX:Bradycardia CKD (chronic kidney disease) stage 3, GFR 30-59 ml/min (CMS/[facility] V24, [facility] V28) 03/30/2011 DX:CKD (chronic kidney disea se) stage 3, GFR 30-59 ml/min ([facility]) Diabetic neuropathy ([facility] V24, [facility] V28) 11/14/2010 DX:Diabetic neuropathy ([facility]) ; COMMENT: Bilateral feet. 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 Right carotid artery occlusion, left carotid artery stenosis. PVD (peripheral vascular dis ease) ([facility] V24) 03/30/2011 DX:PVD (peripheral vascular disease) ([facility]) Family History Medical History Relation Name Comments [...] Mass Index 34.15 03/03/2025 12:53 PM EST Plan of Treatment Upcoming Encounters Date Type Department Care Team (Late st Contact Info) Description 03/23/2025 1:00 PM EST Office Visit Endocrinology - [address] [phone] Jaycob Ferrara MD [address] [place] [address] 08/19/2025 3:00 PM EDT Office Visit Nephrology - [address] [phone] Prabhjot Leroy MD [address] [place] [phone] 09/11/2025 1:00 PM EDT Office Visit [facility] - [address] [phone] Elías Arce MD [address] [place] [address] Health Maintenance Due Date Last Done Comments RSV Immunization Adult Patients (1 - 1-dose 75+ series) 01/30/2020 Falls Risk Assessment 04/08/2022 Social Influencers of Health Screening 04/08/2022 Medicare Annual Wellness Visit 02/14/2024 02/13/2023 Depression Screening 04/30/2024 Diabetes: Annual Retina Eye Exam 10/16/2024 10/17/2023 Diabetes: Annual Foot Exam 05/26/2025 05/26/2024, COVID-19 Vaccine (8 - Moderna risk season) 2025 01/12/2025, 12/27/2023, 02/08/2023, Additional history exists Diabetes: Blood Sugar Control Test (HGBA1C) 07/14/2025 01/14/2025, 08/15/2024, 02/01/2024, Additional history exists Diabetes: Annual Urine Albumin-Creatinine Ratio (uACR) 03/03/2026 03/03/2025, 08/15/2024, 02/01/2024 Diabetes: Annual GFR (Glomerular Filtration Rate) 03/03/2026 03/03/2025, 08/15/2024, 05/20/2024, Additional history exists Hypertension/CHF/CAD Annual BMP Blood Test 03/03/2026 03/03/2025, 08/15/2024, 05/20/2024, Additional history exists DTaP,Tdap,and Td Vaccines (3 - Td or Tdap) 02/01/2030 02/02/2020, 04/13/2008 Cholesterol Screening (Lipid Panel) 03/03/2030 03/03/2025, 08/15/2024, 02/01/2024, Additional history exists Pneumococcal Vaccine: 50+ Years Completed 09/22/2015, 11/20/2011 Hepatitis A Vaccines Aged Out 12/03/2017, 06/04/19 18 No longer eligible based on patient's age to complete this topic Zoster Vaccines Completed 10/05/2022, 07/24/2022 Influenza Vaccine Completed 01/12/2025, , 12/27/2023, Additional history exists HIB Vaccines Aged Out No longer eligi [...] Procedure Name Priority Date/Time Associated Diagnosis Comments LIPID PANEL WITH REFLEX TO DIRECT LDL Routine 03/03/2025 1:26 PM EST Pure hypercholesterolemi a Type 2 diabetes mellitus with stage 3b chronic kidney disease, with long-term current use of insulin ([facility] V24, [facility] V28) COMPREHENSIVE METABOLIC PANEL Routine 03/03/2025 1:26 PM EST Essential hypertension, benign Encounter for long-term (current) use of medications MICROALBUMIN CREATININE URINE RATIO Routine 03/03/2025 1:26 PM EST Type 2 diabetes mellitus with stage 3b chronic kidney disease, with long-term current use of insulin ([facility] V24, [facility] V28) ECG 12-LEAD Routine 03/02/2025 1:10 PM EST Chronic heart failure with preserved ejection fraction ([facility] V24, CMS/[facility] V28) HEMOGLOBIN A1C Routine 01/14/2025 10:42 AM EDT Type 2 diabetes mellitus with stage 3b chronic kidney disease, with long-term current use of insulin ([facility] V24, CMS/[facility] V28) DIABETES EYE EXAM Routine 10/17/2023 DIABETES FOOT EXAM Routine 07/26/2023 from Last 3 Months or Most Recently Relevant to Health Maintenance Results * (ABNORMAL) Lipid panel with reflex to direct LDL (03/03/2025 1:26 PM EST) Cholesterol 132 0 - 200 mg/dL LAB CHEMISTRY METHOD 03/03/2025 6:28 PM EST [facility] Triglycerides 283(H) 0 - 150 mg/dL LAB CHEMISTRY METHOD 03/03/2025 6:28 PM EST [facility] HDL 28(L) >=40 mg/dL LAB CHEMISTRY METHOD 03/03/2025 6:28 PM EST [facility] LDL Calculated 47 0 - 100 mg/dL LAB CHEMISTRY METHOD 03/03/2025 6:28 PM [facility] Comment:Estimated LDL Calcul ated using equation: Total cholesterol - HDL cholesterol - (Triglycerides/5) VLDL Cholesterol Enlson 56.6 mg/dL LAB CHEMISTRY METHOD 03/03/2025 6:28 PM EST [facility] Non HDL Chol. (LDL+VLDL) 104 <145 mg/dL LAB CHEMISTRY METHOD 03/03/2025 6:28 PM [facility] Chol/HDL Ratio 4.7(H) 0.0 - 4.4 LAB CHEMISTRY METHOD 03/03/2025 6:28 PM [facility] Blood Venous blood specimen / Unknown Venipuncture / Unknown 03/03/2025 1:26 PM EST 03/03/2025 1:26 PM EST us Elías Arce MD LAB BLOOD ORDERABLES Final Resu lt [facility] [address] [place] [address], * (ABNORMAL) Microalbumin creatinine urine ratio (03/03/2025 1:26 PM EST) Creatinine, Urine 61.0 mg/dL LAB CHEMISTRY METHOD 03/03/2025 9:04 PM [facility] Microalb, Ur 156.0(H) 0.0 - 29.0 mg/L LAB CHEMISTRY METHOD 03/03/2025 9:04 PM [facility] Microalb/Crea t Ratio 256(H) <30 mg/g creat LAB CHEMISTRY METHOD 03/03/2025 9:04 PM [facility] Urine Urine specimen obtained by clean catch procedure / Unknown Non-blood Collection / Unknown 03/03/2025 1:26 PM EST 03/03/2025 1:26 PM EST us Elías Arce MD LAB URINE ORDERABLES Final Resu lt [facility] [address] [place] [address], * (ABNORMAL) Comprehensive metabolic panel (03/03/2025 1:26 PM EST) Sodium 140 133 - 145 mmol/L LAB CHEMISTRY METHOD 03/03/2025 6:28 PM [facility] Potassium 4.6 3.5 - 5.5 mmol/L LAB CHEMISTRY METHOD 03/03/2025 6:28 PM [facility] Chloride 106 96 - 110 mmol/L LAB CHEMISTRY METHOD 03/03/2025 6:28 PM [facility] CO2 26 21 - 32 mmol/L LAB CHEMISTRY METHOD 03/03/2025 6:28 PM [facility] Anion Gap 8 3 - 11 LAB CHEMISTRY METHOD 03/03/2025 6:28 PM [facility] Glucose 129(H) 70 - 100 mg/dL LAB CHEMISTRY METHOD 03/03/2025 6:28 PM [facility] BUN 25 5 - 25 mg/dL LAB CHEMISTRY METHOD 03/03/2025 6:28 PM [facility] Creatinine 1.64(H) 0.70 - 1.30 mg/dL LAB CHEMISTRY METHOD 03/03/2025 6:28 PM [facility] eGFR 42(L) >=60 mL/min/1. 73m2 LAB CHEMISTRY METHOD 03/03/2025 6:28 PM [facility] Comment:Calculation based on the Chronic Kidney Disease Epidemiology Collaboration (CKD-EPI) equation refit without adjustment for race. BUN/Creatinine Ratio 15.2 LAB CHEMISTRY METHOD 03/03/2025 6:28 PM [facility] Calcium 9.8 8.5 - 10.5 mg/dL LAB CHEMISTRY METHOD 03/03/2025 6:28 PM [facility] AST (SGOT) 17 10 - 42 unit/L LAB CHEMISTRY METHOD 03/03/2025 6:28 PM [facility] ALT (SGPT) 34 10 - 60 unit/L LAB CHEMISTRY METHOD 03/03/2025 6:28 PM [facility] Alkaline Phosphatase 150(H) 42 - 121 unit/L LAB CHEMISTRY METHOD 03/03/2025 6:28 PM [facility] Total Protein 7.3 6.0 - 8.0 g/dL LAB CHEMISTRY METHOD 03/03/2025 6:28 PM [facility] Albumin 4.0 3.2 - 5.0 g/dL LAB CHEMISTRY METHOD 03/03/2025 6:28 PM [facility] Total Bilirubin 0.4 0.0 - 1.4 mg/dL LAB CHEMISTRY METHOD 03/03/2025 6:28 PM EST [facility] Blood Venous blood specimen / Unknown Venipuncture / Unknown 03/03/2025 1:26 PM EST 03/03/2025 1:26 PM EST us Elías Arce MD LAB BLOOD ORDERABLES Final Resu lt [facility] [address] [place] [address], * (ABNORMAL) Hemoglobin A1c (01/14/2025 10:42 AM EDT) Hemoglobin A1C 7.5(H) <6.5 % LAB CHEMISTRY METHOD 01/14/2025 1:47 PM EDT [facility] Mean Bld Glu Estim. 169 mg/dL LAB CHEMISTRY METHOD 01/14/2025 1:47 PM EDT [facility] Blood Venous blood specimen / Unknown Venipuncture / Unknown 01/14/2025 10:42 AM EDT 01/14/2025 10:42 AM EDT Lindsay Grace MD LAB BLOOD ORDERA BLES Final Result [facility] ([facility]) [facility] [address] [place] [address], * Diabetes Eye Exam (10/17/2023) Diabetes: Annual Retina Eye Exam ABSTRACTED Historical Provider HEALTH MAINTENANCE Final Result * Diabetes Foot Exam (07/26/2023) Pathologist [facility] Diabetes: Annual Foot Exam ABSTRACTED Historical Provider HEALTH MAINTENANCE Final Result from Last 3 Months or Most Recently Relevant to Health Maintenance Insurance [employer] [place] [address] Care Teams Dowel Setting Machine Operator Relationship Specialty Start Date End Date Elías Arce MD [address], [place] PCP - General 02/12/1997
== END 2025-03-09 12:35 | disposition home or self-care (01) ==
LOC: HO.US 12:34
PROVIDERS: PCP Internal Medicine; Visit Provider Surgery Vascular Surgery
DX: I65.23 Occlusion and stenosis of bilateral carotid arteries (principal)
CPT/HCPCS: 93880

== ENCOUNTER → 2025-03-09 12:36 | Outpatient (BNV) | payer MEDICARE, SELFPAY | PROVIDERS: PCP Internal Medicine; Visit Provider Radiology Diagnostic Radiology | DX: I65.23 Occlusion and stenosis of bilateral carotid arteries (principal) | CPT/HCPCS: 93880 ==

== ENCOUNTER 2025-03-17 12:45 | Outpatient (AMB) | payer MEDICARE, SELFPAY ==
--- NOTE | 2025-03-17 12:58 | MHC.OFFVIS ---
Vital Signs 03/17/25 12:59 Height 5 ft 10 in Weight 237 lb BMI 34.0 Intake Visit Reasons: follow up carotid US 03/09/25 Intake Note: 1 yr follow up carotid US 03/09/25 w/ hx od Left CEA 09/16/2018 & parotidectomy @ [facility] [place] 07/28/2021. pt states no complaints [employer] Shift [employer] Required: No Accompanied by: Spouse Allergies No Known Allergies (No Known Allergies*) Allergy (Verified 10/14/24 14:26) HPI HPI follow up carotid US 03/09/25: Details: The patient is an 80-year-old male presenting for a routine follow-up for carotid disease surveillance. He has a history of a left carotid endarterectomy in August of 2018. Subsequently, in 2021, he underwent a left radical neck dissection with parotidectomy. The patient did not receive radiation therapy following his neck surgery. Of note he is being maintained on aspirin and statin. A recent surveillance ultrasound indicated that the right carotid artery is blocked and suggests a slight progression of stenosis in the left carotid artery. The patient also reports a recent fall, which has prompted him to switch from using a cane to a walker for ambulation. He now presents for routine surveillance follow-up with carotid ultrasound [facility] Medical History Hx: UTI (urinary tract infection) Metabolic acidosis with normal anion gap and bicarbonate losses Metabolic acidosis with increased anion gap and accumulation of organic acids Anemia Difficult Marques catheter placement H/O cataract Adenomatous colon polyp Johnson esophagus Blind right eye CAD (coronary artery disease) Iron deficiency anemia due to chronic blood loss Acute kidney injury Amputation of left great toe Hepatitis C Hyperlipidemia CVA (cerebral vascular accident) Chronic kidney disease, stage 3 Peripheral vascular disease HTN (hypertension) Diabetes High cholesterol Surgical History S/P CABG x 2 Hx of cystoscopy Parotid mass (07/28/21) History of esophagogastroduodenoscopy (EGD) Hx of colonoscopy History of ankle surgery S/P carotid endarterectomy (~08/2018) S/P CABG (coronary artery bypass graft) (~2006) Family History Other CAD (coronary artery disease) Social History Household Members: Spouse Housing: House Are you a primary resident care provider to a significant other at home: No Do you presently have visiting nurse or other home services: No Alcohol intake: never Comment: blind right eye Patient Tobacco Use Status: Former Tobacco user Tobacco use type: Cigarette e-Cigarette/Vaping Use: Never Used Substance Use Type: Marijuana Advance Directives Date on File: 04/14/21 service: No Current occupational status: retired Review of Systems Const All systems reviewed & are unremarkable except as noted in HPI and below Reports no additional complaints ENT Reports Normal hearing present Card Denies chest pain, Denies chest pain at rest, Denies chest pain with activity and Denies pedal edema Resp Denies cough GI Denies abdominal pain Musc Denies abnormal gait, Denies muscle cramps and Denies radiating pain into limb Skin/Breast Denies skin ulcer and Denies wounds Neuro Reports Normal hearing present and Denies abnormal gait Psych Reports no additional complaints Physical Exam Vital Signs: BMI result Body Mass Index 34.0 Const General: cooperative, healthy appearing and comfortable Orientation/consciousness: oriented to person, oriented to place and oriented to time HEENT Head: Yes normal to inspection Neck Neck: Yes normal visual inspection Carotids: no bruits Chest Chest palpation & inspection: normal inspection of the chest Resp Effort & Inspection: normal respiratory effort and able to speak in complete sentences Auscultation: clear to auscultation bilaterally, no crackles, no rales, no rhonchi and no wheezes Cardio Rate: regular rate Rhythm: regular rhythm Heart sounds: S1 normal heart sound present and S2 normal heart sound present Bruits: no carotid bruits Peripheral pulses: Peripheral pulses 2+ throughout GI Inspection: Yes normal to inspection Skin Wounds: no wounds Hair: normal Neuro General: oriented to person, oriented to place and oriented to time Cranial nerves: Yes CN's II-XII intact bilaterally and Yes Normal hearing present Cognition (Neuro): normal cognition Motor exam (neuro): 5/5 motor strength present throughout Extrem Other: venous exam: No significant superficial varicosities or spider telangiectasias, minimal edema General: No clubbing, No cyanosis and No edema Psych Appearance: grossly normal Mental Status: mental status grossly normal Speech and movement: Normal speech and movement present Results Reviewed Results Reviewed: Carotid testing dated 03/09/2025 demonstrates bilateral greater than 70% stenosis. Quite unusual as we do know the right was occluded on previous studies. Left side appears to have progressed with a new peak systolic of 315. Written report and images were reviewed. Assessment & Plan Assessment & Plan (1) Bilateral carotid artery stenosis: Comment: 09/16/2018 - left carotid endarterectomy Code(s): I65.23 - Occlusion and stenosis of bilateral carotid arteries Category: Medical Plan: In short there appears to be progression of his left carotid disease. It has been nearly 6 years since his previous carotid endarterectomy. I have taken the liberty of ordering CT angiogram to better elucidate the true degree of stenosis. He will follow up with us after testing. Thank you for allowing us to participate in his care. Orders: Orders Creatinine Today I65.23 - Occlusion and stenosis of bilateral carotid arteries CT angio neck Today I65.23 - Occlusion and stenosis of bilateral carotid arteries Blood Urea Nitrogen Today I65.23 - Occlusion and stenosis of bilateral carotid arteries Coding Level of Care Code Est Pt Level 4 (54291) Diagnoses Bilateral carotid artery stenosis I65.23
[2025-03-17 12:59] VITALS: BMI 34.0
--- OUTSIDE RECORDS SUMMARY | 2025-03-18 04:09 | XMS_ITS | Clinical Summary ---
Author Organization [facility] [address] [place] [address] [place] [phone] Phone Care Team Providers Care Hollow Core Door Frame Assembler Name Role Phone Elaís Arce MD Primary Care Provider [phone] Allergies No known active allergies Medications insulin [...] each day. 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 Active [...] heart failure with p reserved ejection fraction (CMS/[facility] V24, CMS/[facility] V28) 05/16/2024 Assessment & Plan (03/02/2025 2:45 PM EST): Patient appears euvolemic on exam. Currently utilizing spironolactone 50 mg p.o. daily which was initiated by his exhibitions and collections manager. Assessment & Plan (01/14/2025 4:55 PM EDT): Continue metoprolol 100mg daily,nifedipine 60 mg daily, Hydralazine 100 mg tid, olmesatan 40mg , aldactone 50mg, bumex 1mg daily Assessment & Plan (05/16/2024 2:00 PM EST): Patient presented to the emergency room fluid overloaded and experiencing some dyspnea on exertion. He was diuresed with furosemide and then started back on his regular medication regiment. Has a exhibitions and collections manager that he reports she has not been [...] mellitus), type 2 with peripheral vascular complications ([facility] V24, [facility] V28) 02/08/2024 DNR (do not resuscitate) 02/04/2022 [...] 2 diabetes mellitus wit h neurological manifestations ([facility] V24, [facility] V28) 06/14/2018 Overview (02/08/2024): Bilateral LE neuropathy PAD (peripheral artery disease) ([facility] V24) Overview (02/08/2024): - Followed by Dr. Dowd at [facility] -Status post peripheral angiography on 05/05/2018 with [...] monitor on current dose of Toprol-XL A-fib ([facility] V24, [facility] V28) 03/30/2011 Overview (03/02/2025): -Post CABG- 2006, then resolved. Assessment & Plan (03/02/2025 2:44 PM EST): - Transiently anticoagulated for a period of time after CABG but no recurrence since then so anticoagulation has been discontinued CKD (chronic kidney disease) stage 3, GFR 30-59 ml/min ([facility] V24, [facility] V28) 03/30/2011 Assessment & Plan (01/14/2025 4:55 PM EDT): Continue nephrology follow-up. Microalbuminuria 03/30/2011 Type 2 diabetes mellitus wit h renal manifestations ([facility] V24, [facility] V28) 11/14/2010 Overview (02/08/2024): Amputation left first toe. Right carotid artery occlusion, left carotid artery stenosis. Assessment & Plan (01/14/2025 4:55 PM EDT): Continue insulin tresiba 40mg BID and novolog TID with meals. Continue endocrinology follow up Orders: Hemoglobin A1c; Future Status post amputation of great toe, left ([facility]/ [facility] V24) 09/03/2008 Overview (02/08/2024): 08/19/2008 Left [...] Resolved Date CHF (congestive heart failur e) ([facility] V24, [facility] V28) 05/15/2024 01/14/2025 CAD (coronary artery disease) [...] Encounters Date Type Department Care Team Description 03/16/2025 Results Follow-Up Adult [address] [phone] Elías Arce MD 03/03/2025 1:25 PM EST Lab Draw [address] Type 2 diabetes mellitus with stage 3b chronic kidney disease, with long-term current use of insulin (CMS/HCC V24, CMS/HCC V28); Essential hypertension, benign; Encounter for long-term (current) use of medications; Pure hypercholesterolemia; Stage 3a chronic kidney disease (CMS/HCC V24, CMS/HCC V28) 03/03/2025 1:00 PM EST Office Visit [address] [phone] Elías Arce MD Type 2 diabetes mellitus [...] V28) 03/02/2025 1:10 PM EST Office Visit [facility] [address] [facility] [address] [place] [phone] Devendra Reddy, FELIX Chronic heart failure with preserved ejection fraction (CMS/HCC V24, CMS/HCC V28) (Primary Dx); Atrial fibrillation, unspecified type ([facility] V24, [facility]/HCC V28); Essential hypertension, benign; 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 02/24/2025 Telephone Adult Medicine [address] [phone] Elías Arce MD 01/22/2025 Telephone Adult Medicine [address] [phone] Lindsay Grace MD 01/14/2025 10:00 AM EDT Consult Adult Medicine [address] [phone] Lindsay Grace MD Preop cardiovascular exam (Primary Dx); Type 2 diabetes mellitus with stage 3b chronic kidney disease, with long-term current use of insulin ([facility] V24, [facility] V28); 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; Chronic heart failure with preserved ejection fraction ([facility] V24, [facility]/HCC V28); Essential hypertension, benign; 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; Stage 3a chronic kidney disease ([facility] V24, [facility]/HCC V28); Mixed hyperlipidemia from Last 3 Months Immunizations Immunization Administration [...] not repeat OTHER SURGICAL HISTORY Left PROCEDURE: [place] CORONARY ENDARTERCOMY OPEN ANY METHOD ANKLE SURGERY 2001 Left PROCEDURE: HISTORICAL ANKLE SURGERY; COMMENT: with hardware ANKLE SURGERY 07/2008 Right PROCEDURE: HISTORICAL ANKLE SURGERY; COMMENT: with hardware OTHER SURGICAL HISTORY 11/07/2007 Left PROCEDURE: MI REMOVAL IMPLANT DEEP; COMMENT: Ankle hardware removal BYPASS GRAFT 08/19/2008 Left PROCEDURE: [place] AMPUTATION TOE METATARSOPHALANGEAL JOINT ANGIOPLASTY 05/01/2018 Left [...] 2 diabetes mellitus wit h renal manifestations ([facility] V24, [facility] V28) 03/30/2011 DX:Type 2 diabetes mellitus with renal manifestations (HCC) CAD (coronary artery disease) 08/05/2006 DX :CAD (coronary artery disease); COMMENT: double coronary bypass 07/13/2006, 99% left main disease History of stroke 08/05/2006 DX:History of stroke; COMMENT: Right hemispheric, post CABG- 2006. 07/08- Right internal carotid artery occlusion, Mild stenosis left internal carotid artery 50-69%. A-fib ([facility] V24, [facility] V28) 03/30/2011 DX:A-fib (HCC); COMMENT: Post CABG- 2006, then resolved. Bilateral carotid artery stenosis 03/18/2018 DX:Bilateral carotid artery stenosis Bradycardia 03/11/2018 DX:Bradycardia CKD (chronic kidney disease) stage 3, GFR 30-59 ml/min ([facility] V24, [facility] V28) 03/30/2011 DX:CKD (chronic kidney disea se) stage 3, GFR 30-59 ml/min ([facility]) Diabetic neuropathy ([facility] V24, [facility] V28) 11/14/2010 DX:Diabetic neuropathy ([facility]) ; COMMENT: Bilateral feet. 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 Right carotid artery occlusion, left carotid artery stenosis. PVD (peripheral vascular dis ease) ([facility] V24) 03/30/2011 DX:PVD (peripheral vascular disease) ([facility]) Family History Medical History Relation Name Comments [...] Care Team (Late st Contact Info) Description 05/12/2025 1:00 PM EST Office Visit Endocrinology - [address] [phone] Michela Kay PA [address] [place] [address] 08/19/2025 3:00 PM EDT Office Visit Nephrology - [address] [phone] Prabhjot Leroy MD 100 [facility] [address] [place] [address] 09/11/2025 1:00 PM EDT Office Visit [facility] - [address] [phone] Elías Arce MD [address] [place] [address] Health Maintenance Due Date Last Done Comments RSV Immunization Adult Patients (1 - 1-dose 75+ series) 01/30/2020 Falls Risk Assessment 04/08/2022 Social Influencers of Health Screening 04/08/2022 Medicare Annual Wellness Visit 02/14/2024 02/13/2023 Depression Screening 04/30/2024 Diabetes: Annual Retina Eye Exam 10/16/2024 10/17/2023 Diabetes: Annual Foot Exam 05/26/2025 05/26/2024, COVID-19 Vaccine (8 - Moderna risk 2024- season) 2025 01/12/2025, 12/27/2023, 02/08/2023, Additional history [...] disease, with long-term current use of insulin ([facility] V24, [facility] V28) COMPREHENSIVE METABOLIC PANEL Routine 03/03/2025 1:26 PM EST Essential hypertension, benign Encounter for long-term (current) use of medications MICROALBUMIN CREATININE URINE RATIO Routine 03/03/2025 1:26 PM EST Type 2 diabetes mellitus with stage 3b chronic kidney disease, with long-term current use of insulin ([facility] V24, [facility] V28) ECG 12-LEAD Routine 03/02/2025 1:10 PM EST Chronic heart failure with preserved ejection fraction ([facility] V24, [facility] V28) HEMOGLOBIN A1C Routine 01/14/2025 10:42 AM EDT Type 2 diabetes mellitus with stage 3b chronic kidney disease, with long-term current use of insulin ([facility] V24, [facility] V28) DIABETES EYE EXAM Routine 10/17/2023 DIABETES FOOT EXAM Routine 07/26/2023 from Last 3 Months or Most Recently Relevant to Health Maintenance Results * (ABNORMAL) Lipid panel with reflex to direct LDL (03/03/2025 1:26 PM EST) Cholesterol 132 0 - 200 mg/dL LAB CHEMISTRY METHOD 03/03/2025 6:[address] [facility] Triglycerides 283(H) 0 - 150 mg/dL LAB CHEMISTRY METHOD 03/03/2025 6:[address] [facility] HDL 28(L) >=40 mg/dL LAB CHEMISTRY METHOD 03/03/2025 6:[address] [facility] LDL Calculated 47 0 - 100 mg/dL LAB CHEMISTRY METHOD 03/03/2025 6:[address] [facility] Comment:Estimated LDL Calcul ated using equation: Total cholesterol - HDL cholesterol - (Triglycerides/5) VLDL Cholesterol Nelson 56.6 mg/dL LAB CHEMISTRY METHOD 03/03/2025 6:[address] [facility] Non HDL Chol. (LDL+VLDL) 104 <145 mg/dL LAB CHEMISTRY METHOD 03/03/2025 6:28 PM [facility] Chol/HDL Ratio 4.7(H) 0.0 - 4.4 LAB CHEMISTRY METHOD 03/03/2025 6:28 PM [facility] Blood Venous blood specimen / Unknown Venipuncture / Unknown 03/03/2025 1:26 PM EST 03/03/2025 1:26 PM EST us Elías Arce MD LAB BLOOD ORDERABLES Final Resu lt [facility] [address] [place] [address], * (ABNORMAL) Microalbumin creatinine urine ratio (03/03/2025 1:26 PM EST) Creatinine, Urine 61.0 mg/dL LAB CHEMISTRY METHOD 03/03/2025 9:04 PM [facility] Microalb, Ur 156.0(H) 0.0 - 29.0 mg/L LAB CHEMISTRY METHOD 03/03/2025 9:04 PM [facility] Microalb/Crea t Ratio 256(H) <30 mg/g creat LAB CHEMISTRY METHOD 03/03/2025 9:04 PM [facility] Urine Urine specimen obtained by clean catch procedure / Unknown Non-blood Collection / Unknown 03/03/2025 1:26 PM EST 03/03/2025 1:26 PM EST us Elías Arce MD LAB URINE ORDERABLES Final Resu lt [facility] [address] [place] [address], [place] [phone] * (ABNORMAL) Comprehensive metabolic panel (03/03/2025 1:26 PM EST) Sodium 140 133 - 145 mmol/L LAB CHEMISTRY METHOD 03/03/2025 6:28 PM [facility] Potassium 4.6 3.5 - 5.5 mmol/L LAB CHEMISTRY METHOD 03/03/2025 6:28 PM [facility] Chloride 106 96 - 110 mmol/L LAB CHEMISTRY METHOD 03/03/2025 6:28 PM [facility] CO2 26 21 - 32 mmol/L LAB CHEMISTRY METHOD 03/03/2025 6:28 PM [facility] Anion Gap 8 3 - 11 LAB CHEMISTRY METHOD 03/03/2025 6:28 PM [facility] Glucose 129(H) 70 - 100 mg/dL LAB CHEMISTRY METHOD 03/03/2025 6:28 PM [facility] BUN 25 5 - 25 mg/dL LAB CHEMISTRY METHOD 03/03/2025 6:28 PM [facility] Creatinine 1.64(H) 0.70 - 1.30 mg/dL LAB CHEMISTRY METHOD 03/03/2025 6:28 PM [facility] eGFR 42(L) >=60 mL/min/1. 73m2 LAB CHEMISTRY METHOD 03/03/2025 6:28 PM [facility] Comment:Calculation based on the Chronic Kidney Disease Epidemiology Collaboration (CKD-EPI) equation refit without adjustment for race. BUN/Creatinine Ratio 15.2 LAB CHEMISTRY METHOD 03/03/2025 6:28 PM [facility] Calcium 9.8 8.5 - 10.5 mg/dL LAB CHEMISTRY METHOD 03/03/2025 6:28 PM [facility] AST (SGOT) 17 10 - 42 unit/L LAB CHEMISTRY METHOD 03/03/2025 6:28 PM [facility] ALT (SGPT) 34 10 - 60 unit/L LAB CHEMISTRY METHOD 03/03/2025 6:28 PM [facility] Alkaline Phosphatase 150(H) 42 - 121 unit/L LAB CHEMISTRY METHOD 03/03/2025 6:28 PM [facility] Total Protein 7.3 6.0 - 8.0 g/dL LAB CHEMISTRY METHOD 03/03/2025 6:28 PM [facility] Albumin 4.0 3.2 - 5.0 g/dL LAB CHEMISTRY METHOD 03/03/2025 6:28 PM [facility] Total Bilirubin 0.4 0.0 - 1.4 mg/dL LAB CHEMISTRY METHOD 03/03/2025 6:[address] [facility] Blood Venous blood specimen / Unknown Venipuncture / Unknown 03/03/2025 1:26 PM EST 03/03/2025 1:26 PM EST us Elías Arce MD LAB BLOOD ORDERABLES Final Resu lt [facility] [address] [place] [address], * (ABNORMAL) Hemoglobin A1c (01/14/2025 10:42 AM EDT) Hemoglobin A1C 7.5(H) <6.5 % LAB CHEMISTRY METHOD 01/14/2025 1:[address] [facility] Mean Bld Glu Estim. 169 mg/dL LAB CHEMISTRY METHOD 01/14/2025 1:[address] [facility] Blood Venous blood specimen / Unknown Venipuncture / Unknown 01/14/2025 10:42 AM EDT 01/14/2025 10:42 AM EDT Lindsay Grace MD LAB BLOOD ORDERA BLES Final Result [facility] [address] [place] [address], * Diabetes Eye Exam (10/17/2023) Diabetes: Annual Retina Eye Exam ABSTRACTED Historical Provider HEALTH MAINTENANCE Final Result * Diabetes Foot Exam (07/26/2023) Diabetes: Annual Foot Exam ABSTRACTED Historical Provider HEALTH MAINTENANCE Final Result from Last 3 Months or Most Recently Relevant to Health Maintenance Insurance [employer] MEDICARE Care Teams Hollow Core Door Frame Assembler Relationship Specialty Start Date End Date Elías Arce MD [address] [place] [address] PCP - General 02/12/1997
--- OUTSIDE RECORDS SUMMARY | 2025-03-18 04:09 | XMS_ITS | Encounter Summary ---
Author Organization [facility] Address [address] [place] [address] Care Team Providers Care Shearing Shed Hand Name Role Phone Elías Arce MD Primary Care Provider [phone] Encounter Details Date Type Department Care Team ([facility] Contact Info) Description 03/16/2025 Results Follow-Up Adult Medicine [address] [phone] Elías Arce MD [address] [place] [address] Social History Tobacco Use Types Packs/Day Years [...] on file documented as of this encounter Plan of Treatment Upcoming Encounters Date Type Department Care Team (Late Contact Info) Description 05/12/2025 1:00 PM EST Office Visit Endocrinology - [address] [phone] Michela Kay PA [address] [place] [address] 08/19/2025 3:00 PM EDT Office Visit Nephrology - [address] [phone] Prabhjot Leroy MD [address] [place] [address] 09/11/2025 1:00 PM EDT Office Visit Adult Medicine [address] [phone] Elías Arce MD [address] [place] [address] documented as of this encounter Visit Diagnoses Not on filedocumented in this encounter Care Teams Shearing Shed Hand Relationship Specialty Start Date End Date Elías Arce MD [address] [place] [address] PCP - General 02/12/1997 documented as of this encounter
--- OUTSIDE RECORDS SUMMARY | 2025-03-18 04:09 | XMS_ITS | Encounter Summary ---
Author Organization [facility] Address [address] [place] [phone] Care Team Providers Care Radio Equipment Repairer Name Role Phone Elías Arce MD Primary Care Provider [phone] Reason for Visit * Reason Onset Date Comments orders 02/24/2025 Encounter Details Date Type Department Care Team ([facility] st Contact Info) Description 02/24/2025 Telephone Adult Medicine [address] [phone] Elías Arce MD [address] [place] [address] Social History Tobacco Use Types Packs/Day Years [...] 1:00 PM EST Office Visit Endocrinology - [address] [phone] Michela Kay PA [address] [place] [address] 08/19/2025 3:00 PM EDT Office Visit Nephrology - [address] [phone] Prabhjot Leroy MD [address] [facility] [address] [place] [address] 09/11/2025 1:00 PM EDT Office Visit Adult Medicine South - [address] [phone] Elías Arce MD [address] [place] [address] documented as of this encounter Visit Diagnoses Not on filedocumented in this encounter Care Teams Radio Equipment Repairer Relationship Specialty Start Date End Date Elías Arce MD [address] [place] [address] PCP - General 02/12/1997 documented as of this encounter
--- OUTSIDE RECORDS SUMMARY | 2025-03-18 04:09 | XMS_ITS | Clinical Summary ---
Author Organization [facility] Address [address] [place], [place] [id number] Phone Care Team Providers Care Vp Research Name Role Phone Elías Arce MD Primary [...] file Medical Devices Not on file Insurance [facility] MEDICARE REPLACEMENT MEDICARE REPLACEMENT MEDICARE REPLACEMENT MEDICARE REPLACEMENT [place] [id number] MEDICARE REPLACEMENT MEDICARE REPLACEMENT MEDICARE REPLACEMENT MEDICARE REPLACEMENT [place] [id number] [place] [address] MEDICARE REPLACEMENT Care Teams Vp Research Relationship Specialty Start Date End Date Elías Arce MD [address] [place] [address] PCP - General Internal Medicine 03/30/21 Additional Source Comments The information contained in this document represents components of the legal health record. It is not the complete legal health record.[facility]
--- OUTSIDE RECORDS SUMMARY | 2025-03-18 04:09 | XMS_ITS | Encounter Summary ---
Author Organization [facility] Address [address] [place] [phone] Care Team Providers Care Bobbin Doffer Name Role Phone Elías Arce MD Primary Care Provider [phone] Reason for Visit * Reason Onset Date Comments Chest Pain 03/11/2024 Encounter Details Date Type Department Care Team (Late st Contact Info) Description 03/11/2024 Nurse Triage Adult Medicine [address] [phone] Elías Arce MD [address] [place] [address] Social History Tobacco Use Types Packs/Day Years [...] N/A Protocols used: Chest Pain-A-AH * Kiera Elie - 03/11/2024 9:03 AM EST Patient call [...] traveled recently to another state outside of [place], [place], [place], [place], [place], [place], [place]? no o If yes, did you quarantine [...] of accident/Injury: No If yes, gather 3rd democrat insurance information Third Constitution Party Information: not applicable PCP: Elías Arce MD Payor: / No coverage found. documented in this encounter Plan of Treatment Upcoming Encounters Date Type Department Care Team (Late st Contact Info) Description 05/12/2025 1:00 PM EST Office Visit Endocrinology - [place] [address] [place] [address] Michela Kay PA [address] [place] [address] 08/19/2025 3:00 PM EDT Office Visit Nephrology - [address] [phone] Prabhjot Leroy MD [address] [place] [address] 09/11/2025 1:00 PM EDT Office Visit Adult Medicine South - [address] [phone] Elías Arce MD [address] [place] [address] documented as of this encounter Visit Diagnoses Not on filedocumented in this encounter Care Teams Bobbin Doffer Relationship Specialty Start Date End Date Elías Arce MD [address] [place] [address] PCP - General 02/12/1997 documented as of this encounter
--- OUTSIDE RECORDS SUMMARY | 2025-03-18 04:09 | XMS_ITS | Clinical Summary ---
Author Organization [facility] Address [address] [place] [address] Care Team Providers Care Data Input Clerk Name Role Phone Unavailable Primary Care Provider [...] Of [place] [address] [place] [address] Prabhjot Leroy MD from Last 3 Months [...]
== END 2025-03-17 13:23 | disposition home or self-care (01) ==
LOC: HO.HVS 12:46
PROVIDERS: PCP Internal Medicine; Visit Provider Surgery Vascular Surgery
DX: I65.23 Occlusion and stenosis of bilateral carotid arteries (principal)
CPT/HCPCS: 99214

== ENCOUNTER → 2025-03-17 12:45 | Outpatient (BNVA) | payer MEDICARE, SELFPAY | PROVIDERS: PCP Internal Medicine; Visit Provider Surgery Vascular Surgery | DX: I65.23 Occlusion and stenosis of bilateral carotid arteries (principal); Z95.1 Presence of aortocoronary bypass graft | CPT/HCPCS: 99212 ==

== ENCOUNTER 2025-03-21 10:07 | Inpatient (IN) | payer MEDICARE, SELFPAY ==
[2025-03-21] VITALS (7 sets, daily range): BP systolic 130–167; BP diastolic 38–82; PULSE 65–84; RESP 18; TEMP 36.3–38.7; O2SAT 95–98; BMI 33.5; BMI 36.2
--- NOTE | ~2025-03-21 | CT_ITS ---
CLINICAL HISTORY: fall, pain CT head without contrast Comparison: None provided Findings: No intra-axial mass, midline shift, hydrocephalus, or acute hemorrhage. No significant atrophy-like change or white matter disease. There is no sinus or mastoid fluid. The orbits are within normal limits. There is no acute fracture. Involutional changes are noted. IMPRESSION: 1. No acute intracranial findings. This document has been electronically signed by: Joe Manuel MD on 03/21/2025 12:30:48
--- NOTE | ~2025-03-21 | CT_ITS ---
CLINICAL HISTORY: fall, strike, pain, fever CT chest with contrast Comparison: CT - CT CHEST W IV CON - 03/21/2025 10:56 AM EST Findings: There are severe coronary artery calcifications. The cardiomediastinal structures are otherwise unremarkable The visualized thyroid and mediastinum are unremarkable. The patient is status post median sternotomy and CABG surgery. The lungs are clear. There are mild calcific atherosclerotic changes of the thoracic aorta. There is no evidence of aortic aneurysm. The bones are intact. IMPRESSION: 1. No acute abnormalities. Postoperative and chronic changes as above. This document has been electronically signed by: Joe Manuel MD on 03/21/2025 12:30:22
--- NOTE | ~2025-03-21 | CT_ITS ---
CLINICAL HISTORY: fall, strike, pain, fever CT abdomen and pelvis with contrast Comparison: CT/REG/ID/SR - CT ABDOMEN PELVIS WITHOUT IV CONTRAST - 11/12/22 17:40 EDT Findings: The lung bases are clear. There is a right renal cyst. The gallbladder and the rest of the solid organs are unremarkable. There are chronic perinephric inflammatory changes. No bowel obstruction, pneumoperitoneum, or pneumatosis. Pelvic contents unremarkable. Normal appendix. The bones are intact. IMPRESSION: No acute findings. This document has been electronically signed by: Joe Manuel MD on 03/21/2025 12:41:28
--- NOTE | ~2025-03-21 | CT_ITS ---
CLINICAL HISTORY: fall, pain CT cervical spine without contrast Comparison: None provided Findings: Vertebral alignment is within normal limits. There are relatively mild degenerative changes. No acute fractures or dislocations. No acute findings on limited view of the intracranial contents. Soft tissues of the neck are normal. No consolidation or effusion at the lung apices. IMPRESSION: No acute findings. This document has been electronically signed by: Joe Manuel MD on 03/21/2025 12:32:20
--- NOTE | ~2025-03-21 | XR_ITS ---
CLINICAL HISTORY: pain, injury 4 view right knee Comparison: None provided Findings: Bones intact. No dislocations. No significant arthritic change or erosions. No joint effusion. No radiopaque foreign body. Significant vascular calcifications are noted. IMPRESSION: 1. No acute findings. This document has been electronically signed by: Joe Manuel MD on 03/21/2025 11:21:54
--- NOTE | 2025-03-21 10:10 | ED_ITS ---
HPI - General Adult General Chief complaint: Fall Stated complaint: FLANK PAIN WEAKNESS Time Seen by Provider: 03/21/25 10:10 Source: patient, family (patient's ) and EMS Mode of arrival: EMS Limitations: no limitations History of Present Illness ED Provider: Misa Nathan PA-C HPI narrative: Patient is an 80 year old assigned male at with a history of PAD, parotid neoplasm, neurogenic bladder, BPH, anemia, CVA, PVD, HTN, DM, CAD, CKD stage 3, and HLD presenting to the emergency department today with low back pain, right sided rib pain, right knee pain, and weakness. Patient states that 1 week ago he fell and the next day felt sore but ignored it. Patient states that his soreness has gotten progressively worse and he feels generally unwell with weakness. Patient states that when the fall happened he did not hit his head or have any loss of consciousness. Patient denies any fall more recently. . Patient denies any other complaints at this time. Related Data Home Medications ?Medication ?Instructions ?Recorded ?Confirmed atorvastatin 40 mg tablet 1 tab PO BEDTIME 04/22/20 olmesartan 40 mg tablet 1 tab PO DAILY 04/22/2012/30 omeprazole 20 mg capsule,delayed 1 cap PO DAILY 01/20/25 release insulin syringe-needle U-100 1 mL #10 ea 09/21/2012/30 28 gauge x 05/01 metoprolol succinate 200 mg 0.5 tab PO DAILY 08/04/21 01/26/25 tablet,extended release 24 hr acetaminophen 500 mg tablet 500 mg PO Q6H PRN pain 01/19/23 aspirin 81 mg tablet,delayed 81 mg PO DAILY 10/04/21 0 01/26/25 release (Adult Low Dose Aspirin) timolol maleate 0.5 % eye drops 1 drp ophthalmic (eye) QAM 09/18/22 01/20/25 bumetanide 1 mg tablet 1 mg PO DAILY 04/24/2301/20 nifedipine 60 mg tablet,extended 60 mg PO QDAY 3 01/26/25 release cholecalciferol (vitamin D3) 25 25 mcg PO DAILY 01/20/25 mcg (1,000 unit) capsule spironolactone 50 mg tablet 50 mg PO DAILY 04/27/23 hydralazine 100 mg tablet 100 mg PO TID 03/18/2401/20 fluticasone propionate 50 1 spray intranasal DAILY 01/20/25 mcg/actuation nasal spray,suspension insulin aspart U-100 100 unit/mL subcut TID 01/20/25 0 01/20/25 subcutaneous solution (Novolog U-100 Insulin aspart) insulin degludec 200 unit/mL (3 40 unit subcut BID 01/20/25 mL) subcutaneous pen (Tresiba FlexTouch U-200 insulin) omega-3 acid ethyl esters 1 gram 1 cap PO DAILY capsule Previous Rx's ?Medication ?Instructions ?Recorded tamsulosin 0.4 mg capsule 0.4 mg PO BEDTIME 90 days #9 0 caps 09/04/24 bethanechol chloride 50 mg tablet 50 mg PO BID 90 days #180 tabs 10/15/24 Allergies Allergy/AdvReac Type Severity Reaction Status Date / Time No Known Allergies (No Known Allergy Verified 03/21/25 10:14 Allergies*) Review of Systems 2 Constitutional: Constitutional: Reports as per HPI Eyes: Eyes: Reports as per HPI ENT: Reports as per HPI Cardiovascular: Cardiovascular: Reports as per HPI Respiratory: Respiratory: Reports as per HPI Gastrointestinal: Gastrointestinal: Reports as per HPI Genitourinary: Genitourinary: Reports as per HPI Musculoskeletal: Musculoskeletal: Reports as per HPI Integumentary/Breasts: Skin/Breast: Reports as per HPI Neurologic: Reports as per HPI Psychiatric: Psychiatric: Reports as per HPI Endocrine: Endocrine: Reports as per HPI Hematologic/Lymphatic: Hematologic/Lymphatic: Reports as per HPI Allergic/Immunologic: Allergic/Immunologic: Reports as per HPI PMF Past Medical History Attestation statement: The following information was validated with the patient. (all information validated with the patient's ) Source: old records reviewed, obtained from family (patient's provided additional history and confirmed the history provided by the patient. ) and nursing notes reviewed Medical History (Updated 03/21/25 @ 14:15 by Vijaya Heaton NP) Difficult Marques catheter placement H/O cataract Adenomatous colon polyp Johnson esophagus Blind right eye CAD (coronary artery disease) Iron deficiency anemia due to chronic blood loss Amputation of left great toe Hepatitis C Hyperlipidemia CVA (cerebral vascular accident) Chronic kidney disease, stage 3 Peripheral vascular disease HTN (hypertension) Diabetes Surgical History S/P CABG x 2 Hx of cystoscopy Parotid mass (07/28/21) History of esophagogastroduodenoscopy (EGD) Hx of colonoscopy History of ankle surgery S/P carotid endarterectomy (~08/2018) S/P CABG (coronary artery bypass graft) (~2006) Family History Family History Other CAD (coronary artery disease) Social History Social History Household Members: Spouse Housing: House Are you a primary rn home care to a significant other at home: No Do you presently have visiting nurse or other home services: No Alcohol intake: never Comment: blind right eye Patient Tobacco Use Status: Former Tobacco user Tobacco use type: Cigarette Smoked in Last 30 Days: No e-Cigarette/Vaping Use: Never Used Use of substances other than those prescribed or required for medical reasons: No Substance Use Type: Marijuana Advance Directives: Yes Advance Directives on File: Yes Advance Directives Date on File: 04/14/21 service: No Current occupational status: retired Physical Exam ED Vital Signs: Vital Signs - 24 hr 03/21/25 10:11 03/21/25 10:40 03/21/25 12:54 Temperature 101.6 F H 98.9 F Pulse Rate 72 71 65 Respiratory Rate 18 18 18 Blood Pressure 159/45 H 131/38 L Pulse Oximetry 96 95 Oxygen Delivery Method Room Air Room Air 03/21/25 13:51 Temperature Pulse Rate Respiratory Rate Blood Pressure 136/50 L Pulse Oximetry Oxygen Delivery Method BMI result Body Mass Index 33.5 Const General: cooperative, no acute distress, alert and awake Nutritional Appearance: well nourished Orientation/consciousness: patient oriented x3 HENMT Head: Yes normal to inspection and Yes atraumatic Ears: hearing grossly normal bilaterally and external ears normal General nose exam: Normal external nose present, no nasal discharge noted and no epistaxis Face and sinus: Yes normal facial exam, No abrasion and No laceration Mouth: Normal oral and palatal mucosa present, no drooling and no muffled voice Eyes General: appearance normal, both eyes and all related structures Periorbital: periorbital findings normal Eyelids: Yes eyelids normal Conjunctivae: conjunctivae normal Pupils: Equal, round and reactive pupils present EOM: EOMs intact bilaterally Neck Neck: Yes normal visual inspection and Yes full ROM Resp Effort & Inspection: normal respiratory effort and able to speak in complete sentences Neuro General: patient oriented x3, moves all extremities and CN's II-XI intact bilaterally Cranial nerves: Yes Equal, round and reactive pupils present Cognition (Neuro): normal cognition Extrem General: Yes normal to inspection, Yes full ROM and Yes capillary refill normal Psych Appearance: grossly normal Mental Status: mental status grossly normal Affect: normal affect Attitude: cooperative Thought process: Normal thought process present Thought content: Normal thought content present Insight: Good insight present (Psych) Medications Administered Generic Name Dose Route Start Last Admin Trade Name Freq PRN Reason Stop Dose Admin Ceftriaxone Sodium 1 gm/ 50 mls @ 100 mls/hr 03/21/25 14:15 03/21/25 14:15 Sodium Chloride IV Not Given Q24H KEIKO Discontinued Medications Generic Name Dose Route Start Last Admin Trade Name Freq PRN Reason Stop Dose Admin Bumetanide 1 mg 03/21/25 13:33 03/21/25 13:51 Bumetanide 1 Mg Tablet PO 03/21/25 13:34 1 mg ONCE ONE Administration Protocol Ceftriaxone Sodium 2 gm/ 50 mls @ 100 mls/hr 03/21/25 10:19 03/21/25 11:10 Sodium Chloride IV 03/21/25 10:48 Infused ONCE ONE Infusion Acetaminophen 1,000 mg in 100 mls @ 400 mls/hr 03/21/25 10:19 03/21/25 10:50 Ofirmev IV 03/21/25 10:33 Infused ONCE ONE Infusion Sodium Chloride 500 mls @ 500 mls/hr 03/21/25 13:00 03/21/25 14:00 Ns IV 03/21/25 13:59 Infused .Q1H KEIKO Infusion Iohexol 100 ml 03/21/25 11:27 03/21/25 11:27 Iohexol 350 Mg/Ml 100 Ml Infus..Btl IV 03/21/25 11:28 85 ml ONCE ONE Administration Tamsulosin HCl 0.4 mg 03/21/25 13:33 03/21/25 13:51 Tamsulosin Hcl 0.4 Mg Capsule PO 03/21/25 13:34 0.4 mg ONCE ONE Administration Medical Decision Making Medical Decision Making [facility] Narrative: Patient is an 80 year old assigned male at with a history of PAD, parotid neoplasm, neurogenic bladder, BPH, anemia, CVA, PVD, HTN, DM, CAD, CKD stage 3, and HLD presenting to the emergency department today with low back pain, right sided rib pain, right knee pain, and weakness. Patient's physical exam was as noted in the physical exam portion of this note. Patient's blood work showed an elevated WBC count of 19.9 with a left shift of 87.9%, NT Pro-BNP of 1563.3, BUN of 31, and CR of 1.64. Patient's urine showed an acute UTI. Patient's EKG showed a RBBB with no obvious evidence of acute ischemia / infarction. Patient's right knee x-ray showed no acute process. Patient's chest CT showed no acute process. Patient's CT abdomen/pelvis was read as negative for any acute process however, upon my personal review, I appreciated bladder wall thickening consistent with cystitis. Patient's CT head and c-spine showed no acute process. Patient's clinical presentation is most consistent with an acute UTI and DOMENICO. I was suspicious the patient could be septic at 1019. Patient received IV fluids and 2 grams of IV ceftriaxone. I spoke with the hospitalist team who agreed to admission for continued IV antibiotics. I explained my physical exam findings as well as all test results to the patient and the patient's . I answered all questions asked by the patient and the patient's . Patient and the patient's verbalized agreement and understanding with this treatment plan and admission. Differential Diagnosis Differential Diagnoses: The differential diagnosis associated with the presentation includes UTI Urosepsis Viral illness Weakness Pneumonia Fall Rib fracture Admission/Observation Consideration of admission/observation: Escalation of care including admission/observation considered Patient admitted as noted in the MDM Rationale portion of this note. Consult Healthcare Provider Management of the patient was discussed with: Hospitalist (agreed to admission as noted in the MDM Rationale portion of this note. ) Lab Data [facility] Lab Attestation statement: I reviewed the patient's lab results. My interpretation of these results are in the MDM Rationale portion of this note. 03/21/25 10:30 03/21/25 10:30 Labs: Lab Results 03/21/25 03/21/25 03/21/25 Range/Units 10:30 10:37 13:52 WBC 19.9 H (4.8-10.8) X10*3/uL RBC 3.64 L (4.60-5.80) X10*6/uL Hgb 11.4 L (14.0-18.0) g/dl Hct 34.9 L (42.0-52.0) % MCV 95.9 (80.0-98.0) fL MCH 31.3 (27.0-33.0) pg MCHC 32.7 (31.0-36.0) g/dl RDW 13.4 (11.0-16.0) % Plt Count 224 (160-400) X10*3/uL MPV 9.4 (9.4-12.4) fL Immature Gran % (Auto) 0.8 H (0.0-0.4) % Neut % (Auto) 87.9 H (45-73) % Lymph % (Auto) 3.3 L (20-40) % Burt % (Auto) 7.5 (2-11) % Eos % (Auto) 0.1 (0-4) % Baso % (Auto) 0.4 (0-2) % Lymph # (Auto) 0.7 L (1.2-4.9) X10*3/uL Burt # (Auto) 1.5 H (0.1-1.2) X10*3/uL Eos # (Auto) 0.0 (0.0-0.4) X10*3/uL Baso # (Auto) 0.1 (0.0-0.2) X10*3/uL Abs Immat Gran (auto) 0.15 H (0.00-0.03) X10*3/uL Absolute Neuts (auto) 17.5 H (2.0-8.3) x10*3/uL Absolute Nucleated RBC 0.000 (0.0-0.012) X10*3/uL Nucleated RBC % (auto) 0.0 (0.0-0.2) /100WBC Hold Purple Top SEE NOTE Sodium 141 (135-145) mmol/L Potassium 4.2 (3.3-5.1) mmol/L Chloride 110 H (96-108) mmol/L Carbon Dioxide 22 (22-29) mmol/L Anion Gap 13 (12-20) BUN 31 H (9-16) mg/dL Creatinine 1.64 H (0.5-1.4) mg/dL Estim Creat Clear Calc 43.8 Estimated GFR 41 Random Glucose 169 H (60-115) mg/dL Lactic Acid 1.4 (0.5-2.0) mmol/L Calcium 9.8 (8.4-10.2) mg/dL Total Bilirubin 0.7 (0.0-1.0) mg/dL AST 22 (5-37) U/L ALT 21 (0-40) U/L Alkaline Phosphatase 135 H (39-117) U/L Troponin I High Sens 12.7 D (<3.5-35.0) ng/L NT-Pro-B Natriuret Pep 1563.3 H (<300) pg/mL Total Protein 7.0 (6.5-8.0) g/dL Albumin 4.3 (3.5-5.0) g/dL Urine Color Yellow Urine Appearance Turbid Urine pH 5.0 (5.0-9.0) Ur Specific Cambria >= 1.030 H (1.005-1.025) Urine Protein 100 (2+) H (Neg-Trace) mg/dL Urine Glucose (UA) Negative (Negative) mg/dL Urine Ketones Negative (Negative) mg/dL Urine Blood Negative (Negative) Urine Nitrite Positive H (Negative) Ur Leukocyte Esterase Moderate (2+) H (Negative) Urine RBC 0-2 (0-2) /HPF Urine WBC >50 H (0-5) /HPF Urine WBC Clumps Present Ur Squamous Epith Cells 0-2 (0-2) /HPF Urine Bacteria 1+ (None Seen) Hyaline Casts 0-2 (0-2) /LPF Influenza Type A (PCR) NEGATIVE (Negative) Influenza Type B (PCR) NEGATIVE (Negative) RSV RNA Qual (PCR) NEGATIVE (Negative) SARS-CoV-2 RNA (RT-PCR) NEGATIVE (Negative) Independent Interpretation I performed an independent interpretation of an: EKG, Plain X-Ray and CT Scan Interpretation: My interpretation is in agreement with the radiologist's impression of these imaging studies as written below with the exception of my interpretation of bladder wall thickening consistent with cystitis on the CT abd/pelvis. CLINICAL HISTORY: pain, injury 4 view right knee Comparison: None provided Findings: Bones intact. No dislocations. No significant arthritic change or erosions. No joint effusion. No radiopaque foreign body. Significant vascular calcifications are noted. IMPRESSION: 1. No acute findings. This document has been electronically signed by: Joe Manuel MD on 03/21/2025 11:21:54 Dictated By: Joe Manuel MD Signed By: Electronically signed by Joe Manuel MD 03/21/25 1122 CLINICAL HISTORY: fall, strike, pain, fever CT chest with contrast Comparison: CT - CT CHEST W IV CON - 03/21/2025 10:56 AM EST Findings: There are severe coronary artery calcifications. The cardiomediastinal structures are otherwise unremarkable The visualized thyroid and mediastinum are unremarkable. The patient is status post median sternotomy and CABG surgery. The lungs are clear. There are mild calcific atherosclerotic changes of the thoracic aorta. There is no evidence of aortic aneurysm. The bones are intact. IMPRESSION: 1. No acute abnormalities. Postoperative and chronic changes as above. This document has been electronically signed by: Joe Manuel MD on 03/21/2025 12:30:22 Dictated By: Joe Manuel MD Signed By: Electronically signed by Joe Manuel MD 03/21/25 1231 CLINICAL HISTORY: fall, pain CT head without contrast Comparison: None provided Findings: No intra-axial mass, midline shift, hydrocephalus, or acute hemorrhage. No significant atrophy-like change or white matter disease. There is no sinus or mastoid fluid. The orbits are within normal limits. There is no acute fracture. Involutional changes are noted. IMPRESSION: 1. No acute intracranial findings. This document has been electronically signed by: Joe Manuel MD on 03/21/2025 12:30:48 Dictated By: Joe Manuel MD Signed By: Electronically signed by Joe Manuel MD 03/21/25 1231 CLINICAL HISTORY: fall, pain CT cervical spine without contrast Comparison: None provided Findings: Vertebral alignment is within normal limits. There are relatively mild degenerative changes. No acute fractures or dislocations. No acute findings on limited view of the intracranial contents. Soft tissues of the neck are normal. No consolidation or effusion at the lung apices. IMPRESSION: No acute findings. This document has been electronically signed by: Joe Manuel MD on 03/21/2025 12:32:20 Dictated By: Joe Manuel MD Signed By: Electronically signed by Joe aMnuel MD 03/21/25 1233 CLINICAL HISTORY: fall, strike, pain, fever CT abdomen and pelvis with contrast Comparison: CT/REG/VA/SR - CT ABDOMEN PELVIS WITHOUT IV CONTRAST - 11/12/22 17:40 EDT Findings: The lung bases are clear. There is a right renal cyst. The gallbladder and the rest of the solid organs are unremarkable. There are chronic perinephric inflammatory changes. No bowel obstruction, pneumoperitoneum, or pneumatosis. Pelvic contents unremarkable. Normal appendix. The bones are intact. IMPRESSION: No acute findings. This document has been electronically signed by: Joe aMnuel MD on 03/21/2025 12:41:28 Dictated By: Joe Manuel MD Signed By: Electronically signed by Joe Manule MD 03/21/25 1242 I independently interpreted this EKG and am in agreement with the below findings: Vent. Rate: 74 BPM Atrial Rate: 74 BPM P-R Int: 190 ms QRS Dur: 156 ms QT Int: 388 ms P-R-T Axes: 55 44 45 degrees QTcB Int: 430 ms Normal sinus rhythm Right bundle branch block When compared with ECG of 05-Apr-2024 12:30, No significant change was found DD/ 1042 Radiology Impression Discussion of test interpretation with radiology: I have reviewed the radiologist's reading. Independent Historian Clinical information obtained from an independent historian. History obtained from or confirmed by: Spouse (patient's provided additional history and confirmed the history provided by the patient. ) and EMS (EMS provided additional history and confirmed the history provided by the patient. ) Critical Care Time Critical Care Time Critical Care Time: Yes Total Critical Care Time: 49 Attestation: I spent 49 minutes of Critical Care Time with this patient. This does not include time spent on separately reported billable procedures. Discharge Plan Discharge Clinical Impression: DOMENICO (acute kidney injury), Weakness Urinary tract infection Qualifiers: Urinary tract infection type: acute cystitis Hematuria presence: without hematuria Qualified Code(s): N30.00 - Acute cystitis without hematuria Patient Disposition: Admitted As Inpatient Interventions: Admission Worksheet (ED) Last Done: 03/21/25 14:38
--- NOTE | 2025-03-21 10:34 | ECG_ITS ---
Test Reason : WEAKNESS Blood Pressure : */* mmHG Vent. Rate : 74 BPM Atrial Rate : 74 BPM P-R Int : 190 ms QRS Dur : 156 ms QT Int : 388 ms P-R-T Axes : 55 44 45 degrees QTcB Int : 430 ms Normal sinus rhythm Right bundle branch block Abnormal ECG When compared with ECG of 05-Apr-2024 12:30, No significant change was found Referred By: Misa Nathan Electronically Signed By: CHUY MACHADO
[2025-03-21 10:43] LABS: MANUAL DIFF FLAG NO
--- OUTSIDE RECORDS SUMMARY | 2025-03-21 10:44 | XMS_ITS | Encounter Summary ---
Author Organization [facility] Address [address] [place] [id number] Care Team Providers Care Traffic Sign Supervisor Name Role Phone Elías Arce MD Primary Care Provider [phone] Reason for Visit * Reason Onset Date Comments Chest Pain 03/11/2024 Encounter Details Date Type Department Care Team (Late st Contact Info) Description 03/11/2024 Nurse Triage Adult Medicine [address] [phone] Elías Arce MD [address] [place] [address] Social History Tobacco Use Types Packs/Day Years [...] traveled recently to another state outside of [place], [place], [place], [place], [place], [place], [place]? no o If yes, did you quarantine [...] of accident/Injury: No If yes, gather 3rd alliance party insurance information Third Democrat Information: not applicable PCP: Elías Arce MD Payor: / No coverage found. documented in this encounter Plan of Treatment Upcoming Encounters Date Type Department Care Team (Late st Contact Info) Description 05/12/2025 1:00 PM EST Office Visit Endocrinology - [place] [address] [place] [address] Michela Kay PA [address] [place] [address] 08/19/2025 3:00 PM EDT Office Visit Nephrology - [address] [phone] Prabhjot Leroy MD [address] [place] [address] 09/11/2025 1:00 PM EDT Office Visit Adult Medicine [place] - [address] [phone] Elías Arce MD [address] [place] [address] documented as of this encounter Visit Diagnoses Not on filedocumented in this encounter Care Teams Traffic Sign Supervisor Relationship Specialty Start Date End Date Elías Arce MD [address] [place] [address] PCP - General 02/12/1997 documented as of this encounter
--- OUTSIDE RECORDS SUMMARY | 2025-03-21 10:44 | XMS_ITS | Clinical Summary ---
Author Organization [facility] Address [address] [place] [address] Care Team Providers Care Store Cashier Name Role Phone Unavailable Primary Care Provider [...] Of [place] [address] [place] [address] Prabhjot Leroy MD from Last 3 Months [...]
--- OUTSIDE RECORDS SUMMARY | 2025-03-21 10:44 | XMS_ITS | Encounter Summary ---
Author Organization [facility] [address] Address [address] [place] [phone] Care Team Providers Care Interlocker Name Role Phone Elías Arce MD Primary Care Provider [phone] Encounter Details Date Type Department Care Team ([facility] Contact Info) Description 03/16/2025 Results Follow-Up Adult Medicine [address] [phone] Elías Arce MD [address] [place] [address] Social History Tobacco Use Types Packs/Day Years [...] PM EST Office Visit Endocrinology - [address] [phone] Michela Kay PA [address] [place] [address] 08/19/2025 3:00 PM EDT Office Visit Nephrology - [address] [phone] Prabhjot Leroy MD [address] [place] [address] 09/11/2025 1:00 PM EDT Office Visit Adult Medicine [address] [phone] Elías Arce MD [address] [place] [address] documented as of this encounter Visit Diagnoses Not on filedocumented in this encounter Care Teams Interlocker Relationship Specialty Start Date End Date Elías Arce MD [address] [place] [address] PCP - General 02/12/1997 documented as of this encounter
--- OUTSIDE RECORDS SUMMARY | 2025-03-21 10:44 | XMS_ITS | Clinical Summary ---
Author Organization [facility] [address] [place] [address] [place] [phone] Phone Care Team Providers Care Home Care Associate Name Role Phone Elías Arce MD Primary Care Provider [phone] Allergies No known active allergies Medications insulin [...] each day. Active blood-glucose meter,continuous (Dexcom G7 Supervisor [employer]) misc by Does not apply route. Active [...] day. 02/08/20 24 025 Discontin ued(Reord er) omeprazole (PriLOSEC) [address] capsule Take 1 capsule (20 mg total) by mouth 1 (one) time each day. 90 each 12/10/19 25 025 Discontin ued(Reord er) Active Problems Problem Noted Date Diagnosed Date Chronic heart failure with p reserved ejection fraction ([facility] V24, [facility] V28) 05/16/2024 Assessment & Plan (03/02/2025 2:45 PM EST): Patient appears euvolemic on exam. Currently utilizing spironolactone 50 mg p.o. daily which was initiated by his mold changer. Assessment & Plan (01/14/2025 4:55 PM EDT): Continue metoprolol 100mg daily,nifedipine 60 mg daily, Hydralazine 100 mg tid, olmesatan 40mg , aldactone 50mg, bumex 1mg daily Assessment & Plan (05/16/2024 2:00 PM EST): Patient presented to the emergency room fluid overloaded and experiencing some dyspnea on exertion. He was diuresed with furosemide and then started back on his regular medication regiment. Has a mold changer that he reports she has not been [...] mellitus), type 2 with peripheral vascular complications ([facility] V24, [facility] V28) 02/08/2024 DNR (do not [...] 2 diabetes mellitus wit h neurological manifestations ([facility] V24, [facility] V28) 06/14/2018 Overview (02/08/2024): Bilateral LE neuropathy PAD (peripheral artery disease) ([facility] V24) Overview (02/08/2024): - Followed by Dr. Dowd at [facility] -Status post peripheral angiography on 05/05/2018 with [...] monitor on current dose of Toprol-XL A-fib ([facility] V24, [facility] V28) 03/30/2011 Overview (03/02/2025): -Post CABG- 2006, then resolved. Assessment & Plan (03/02/2025 2:44 PM EST): - Transiently anticoagulated for a period of time after CABG but no recurrence since then so anticoagulation has been discontinued CKD (chronic kidney disease) stage 3, GFR 30-59 ml/min ([facility] V24, [facility] V28) 03/30/2011 Assessment & Plan (01/14/2025 4:55 PM EDT): Continue nephrology follow-up. Microalbuminuria 03/30/2011 Type 2 diabetes mellitus wit h renal manifestations ([facility] V24, [facility] V28) 11/14/2010 Overview (02/08/2024): Amputation left first toe. Right carotid artery occlusion, left carotid artery stenosis. Assessment & Plan (01/14/2025 4:55 PM EDT): Continue insulin tresiba 40mg BID and novolog TID with meals. Continue endocrinology follow up Orders: Hemoglobin A1c; Future Status post amputation of great toe, left ([facility] V24) 09/03/2008 Overview (02/08/2024): 08/19/2008 [...] Resolved Date CHF (congestive heart failur e) ([facility] V24, [facility] V28) 05/15/2024 01/14/2025 CAD (coronary [...] Department Care Team Description 03/16/2025 Results Follow-Up [address] [phone] Elías Arce MD 03/03/2025 1:25 PM EST Lab Draw [address] Type 2 diabetes mellitus with stage 3b chronic kidney disease, with long-term current use of insulin (CMS/HCC V24, CMS/HCC V28); Essential hypertension, benign; Encounter for long-term (current) use of medications; Pure hypercholesterolemia; Stage 3a chronic kidney disease (CMS/HCC V24, CMS/HCC V28) 03/03/2025 1:00 PM EST Office Visit [address] [phone] Elías Arce MD Type 2 diabetes mellitus [...] V28) 03/02/2025 1:10 PM EST Office Visit [facility] [address] [facility] [address] [place] [address] Devendra Reddy NP Chronic heart failure with preserved ejection fraction (CMS/HCC V24, CMS/HCC V28) (Primary Dx); Atrial fibrillation, unspecified type (CMS/HCC V24, CMS/HCC V28); Essential hypertension, benign; 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 02/24/2025 Telephone Adult [address] [phone] Elías Arce MD 01/22/2025 Telephone Adult [address] [phone] Lindsay Grace MD 01/14/2025 10:00 AM EDT Consult Adult Medicine [address] [phone] Lindsay Grace MD Preop cardiovascular exam (Primary Dx); Type 2 diabetes mellitus with stage 3b chronic kidney disease, with long-term current use of insulin ([facility] V24, [facility] V28); 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; Chronic heart failure with preserved ejection fraction ([facility] V24, [facility] V28); Essential hypertension, benign; 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; Stage 3a chronic kidney disease ([facility] V24, [facility] V28); Mixed hyperlipidemia from Last 3 Months [...] not repeat OTHER SURGICAL HISTORY Left PROCEDURE: [facility] CORONARY ENDARTERCOMY OPEN ANY METHOD ANKLE SURGERY 2001 Left PROCEDURE: HISTORICAL ANKLE SURGERY; COMMENT: with hardware ANKLE SURGERY 07/2008 Right PROCEDURE: HISTORICAL ANKLE SURGERY; COMMENT: with hardware OTHER SURGICAL HISTORY 11/07/2007 Left PROCEDURE: VA REMOVAL IMPLANT DEEP; COMMENT: Ankle hardware removal BYPASS GRAFT 08/19/2008 Left PROCEDURE: VA AMPUTATION TOE METATARSOPHALANGEAL JOINT ANGIOPLASTY 05/01/2018 Left [...] 2 diabetes mellitus wit h renal manifestations ([facility] [place], [facility] [place]) 03/30/2011 DX:Type 2 diabetes mellitus with renal manifestations ([facility]) CAD (coronary artery disease) 08/05/2006 DX :CAD (coronary artery disease); COMMENT: double coronary bypass 07/13/2006, 99% left main disease History of stroke 08/05/2006 DX:History of stroke; COMMENT: Right hemispheric, post CABG- 2006. 07/08- Right internal carotid artery occlusion, Mild stenosis left internal carotid artery 50-69%. A-fib ([facility] [place], [facility] V28) 03/30/2011 DX:A-fib ([facility]); COMMENT: Post CABG- 2006, then resolved. Bilateral carotid artery stenosis 03/18/2018 DX:Bilateral carotid artery stenosis Bradycardia 03/11/2018 DX:Bradycardia CKD (chronic kidney disease) stage 3, GFR 30-59 ml/min ([facility] [place], [facility] V28) 03/30/2011 DX:CKD (chronic kidney disea se) stage 3, GFR 30-59 ml/min ([facility]) Diabetic neuropathy ([facility] [place], [facility] [place]) 11/14/2010 DX:Diabetic neuropathy ([facility]) ; COMMENT: Bilateral feet. 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 Right carotid artery occlusion, left carotid artery stenosis. PVD (peripheral vascular dis ease) ([facility] [place]) 03/30/2011 DX:PVD (peripheral vascular disease) ([facility]) Family History Medical History Relation [...] 1:00 PM EST Office Visit Endocrinology - [address] [phone] Michela Kay PA [address] [place], [place] 08/19/2025 3:00 PM EDT Office Visit Nephrology - [address] [phone] Prabhjot Leroy MD [address] [facility] [address] [place] [phone] 09/11/2025 1:00 PM EDT Office Visit [facility] - [address] [phone] Elías Arce MD [address] [place] [address] Health Maintenance Due Date Last Done Comments [...] disease, with long-term current use of insulin ([facility] V24, [facility] V28) COMPREHENSIVE METABOLIC PANEL Routine 03/03/2025 1:26 PM EST Essential hypertension, benign Encounter for long-term (current) use of medications MICROALBUMIN CREATININE URINE RATIO Routine 03/03/2025 1:26 PM EST Type 2 diabetes mellitus with stage 3b chronic kidney disease, with long-term current use of insulin ([facility] [place], [facility] V28) ECG 12-LEAD Routine 03/02/2025 1:10 PM EST Chronic heart failure with preserved ejection fraction ([facility] V24, [facility] V28) HEMOGLOBIN A1C Routine 01/14/2025 10:42 AM EDT Type 2 diabetes mellitus with stage 3b chronic kidney disease, with long-term current use of insulin ([facility] V24, [facility] V28) DIABETES EYE EXAM Routine 10/17/2023 DIABETES FOOT EXAM Routine 07/26/2023 from Last 3 Months or Most Recently Relevant to Health Maintenance Results * (ABNORMAL) Lipid panel with reflex to direct LDL (03/03/2025 1:26 PM EST) Cholesterol 132 0 - 200 mg/dL LAB CHEMISTRY METHOD 03/03/2025 6:28 PM [facility] Triglycerides 283(H) 0 - 150 mg/dL LAB CHEMISTRY METHOD 03/03/2025 6:28 PM [facility] HDL 28(L) >=40 mg/dL LAB CHEMISTRY METHOD 03/03/2025 6:28 PM [facility] LDL Calculated 47 0 - 100 mg/dL LAB CHEMISTRY METHOD 03/03/2025 6:28 PM [facility] Comment:Estimated LDL Calcul ated using equation: Total cholesterol - HDL cholesterol - (Triglycerides/5) VLDL Cholesterol Nelson 56.6 mg/dL LAB CHEMISTRY METHOD 03/03/2025 6:28 PM [facility] Non HDL Chol. (LDL+VLDL) 104 [...] MD LAB BLOOD ORDERABLES Final Resu lt Performing Organization Address [facility]/ZIP Co de Phone Number [facility] [address] [place] [address], [place] [phone] * (ABNORMAL) Microalbumin creatinine urine ratio (03/03/2025 1:26 PM EST) Creatinine, Urine 61.0 mg/dL LAB CHEMISTRY METHOD 03/03/2025 9:04 PM [facility] Microalb, Ur 156.0(H) 0.0 - 29.0 mg/L LAB CHEMISTRY METHOD 03/03/2025 9:04 PM [facility] Microalb/Crea t Ratio 256(H) <30 mg/g creat LAB CHEMISTRY METHOD 03/03/2025 9:04 PM EST [facility] Urine Urine specimen obtained by clean catch procedure / Unknown Non-blood Collection / Unknown 03/03/2025 1:26 PM EST 03/03/2025 1:26 PM EST us Elías Arce MD LAB URINE ORDERABLES Final Resu lt Performing Organization Address [facility]/ZIP Co de Phone Number [facility] [address] [place] [address], [place] [phone] * (ABNORMAL) Comprehensive metabolic panel (03/03/2025 1:26 PM EST) Sodium 140 133 - 145 mmol/L LAB CHEMISTRY METHOD 03/03/2025 6:28 PM [facility] Potassium 4.6 3.5 - 5.5 mmol/L LAB CHEMISTRY METHOD 03/03/2025 6:28 PM [facility] Chloride 106 96 - 110 mmol/L LAB CHEMISTRY METHOD 03/03/2025 6:28 PM [facility] CO2 26 21 - 32 mmol/L LAB CHEMISTRY METHOD 03/03/2025 6:28 PM [facility] Anion Gap 8 3 - 11 LAB CHEMISTRY METHOD 03/03/2025 6:28 PM [facility] Glucose 129(H) 70 - 100 mg/dL LAB CHEMISTRY METHOD 03/03/2025 6:28 PM [facility] BUN 25 5 - 25 mg/dL LAB CHEMISTRY METHOD 03/03/2025 6:28 PM [facility] Creatinine 1.64(H) 0.70 - 1.30 mg/dL LAB CHEMISTRY METHOD 03/03/2025 6:28 PM [facility] eGFR 42(L) >=60 mL/min/1. 73m2 LAB CHEMISTRY METHOD 03/03/2025 6:28 PM [facility] Comment:Calculation based on the Chronic Kidney Disease Epidemiology Collaboration (CKD-EPI) equation refit without adjustment for race. BUN/Creatinine Ratio 15.2 LAB CHEMISTRY METHOD 03/03/2025 6:28 PM [facility] Calcium 9.8 8.5 - 10.5 mg/dL LAB CHEMISTRY METHOD 03/03/2025 6:28 PM [facility] AST (SGOT) 17 10 - 42 unit/L LAB CHEMISTRY METHOD 03/03/2025 6:28 PM [facility] ALT (SGPT) 34 10 - 60 unit/L LAB CHEMISTRY METHOD 03/03/2025 6:28 PM [facility] Alkaline Phosphatase 150(H) 42 - 121 unit/L LAB CHEMISTRY METHOD 03/03/2025 6:28 PM EST [facility] Total Protein 7.3 6.0 - 8.0 g/dL LAB CHEMISTRY METHOD 03/03/2025 6:28 PM EST [facility] Albumin 4.0 3.2 - 5.0 g/dL LAB CHEMISTRY METHOD 03/03/2025 6:28 PM EST [facility] Total Bilirubin 0.4 0.0 - 1.4 mg/dL LAB CHEMISTRY METHOD 03/03/2025 6:28 PM EST [facility] Blood Venous blood specimen / Unknown Venipuncture / Unknown 03/03/2025 1:26 PM EST 03/03/2025 1:26 PM EST us Elías Arce MD LAB BLOOD ORDERABLES Final Resu lt Performing Organization Address City/[facility]/ZIP Co de Phone Number [facility] [address] [place] [address], [place] [phone] * (ABNORMAL) Hemoglobin A1c (01/14/2025 10:42 AM EDT) Hemoglobin A1C 7.5(H) <6.5 % LAB CHEMISTRY METHOD 01/14/2025 1:47 PM EDT [facility] Mean Bld Glu Estim. 169 mg/dL LAB CHEMISTRY METHOD 01/14/2025 1:47 PM EDT [facility] Blood Venous blood specimen / Unknown Venipuncture / Unknown 01/14/2025 10:42 AM EDT 01/14/2025 10:42 AM EDT us Lindsay Grace MD LAB BLOOD ORDERA BLES Final Result [facility] [address] [place] [address], [place] [phone] * Diabetes Eye Exam (10/17/2023) Diabetes: Annual Retina Eye Exam ABSTRACTED us Historical Provider HEALTH MAINTENANCE Final Result * Diabetes Foot Exam (07/26/2023) Diabetes: Annual Foot Exam ABSTRACTED us Historical Provider HEALTH MAINTENANCE Final Result from Last 3 Months or Most Recently Relevant to Health Maintenance Insurance [employer] MEDICARE Care Teams Home Care Associate Relationship Specialty Start Date End Date Elías Arce MD [address] [place] [phone] PCP - General 02/12/1997
--- OUTSIDE RECORDS SUMMARY | 2025-03-21 10:44 | XMS_ITS | Patient Health Record ---
Author Organization [facility] [place] Address [address] [facility] [place] [address] Care Team Providers Care Nurse Transplant Name Role Phone Claude OLEA, Dileep Primary Care Provider UnavailAmi Collazo Unavailable [phone] Allergies No Known Allergies Results Component Value Reference Range Notes HEMOGLOBIN A1C (GLYCOHEMOGLO BIN) Reviewed date:03/05/2025 02:21:19 PM Interpretation: Performing Lab: Notes/Report: HEMOGLOBIN A1C % (HH) 7.5 HEMOGLOBIN A1C (GLYCOHEMOGLO BIN) Reviewed date:08/25/2024 02:08:12 PM Interpretation: Performing Lab: Notes/Report: HEMOGLOBIN A1C % (HH) 5.5 Reason For Referral No Information Medications Medication SIG (Take, Route, Frequency, Duration) Notes Start Date End Date Status Bumetanide 1 MG Oral; Duration: 90 Active NIFEdipine ER 60 MG Oral; Duration: 90 Active Metoprolol Succinate ER 200 MG Oral; Duration: 90 Active Spironolactone 50 MG Oral; Duration: 90 Active BD Insulin Syringe MicroFine 28G X 1/2 1 ML ; Duration: 90 Active Atorvastatin Calcium 40 MG Oral; Duration: 90 Active Timolol Maleate 0.5 % Ophthalmic; Durati on: 90 Active hydrALAZINE HCl 100 MG Oral; Duration: 90 Active Tamsulosin HCl 0.4 MG Oral; Duration: 90 Active Olmesartan Medoxomil 40 MG Oral; Duration: 90 Active Dexcom G7 Sensor - as directed Active Fish Oil 1000 MG [address] ee times a day; Duration: 30 day(s) Active Gemfibrozil 600 MG Oral; Duration: 90 Not-Taking Aspirin 81 MG 1 tablet Orally Once a day; Duration: 30 day(s) Active Dexcom G7 Student Worker - as directed Active Tresiba 100 UNIT/ML as directed Subcutaneous Active Jardiance Not-Taking NovoLOG Active Physical Therapy . . . 2-3x/week; Duration: 3-4 weeks Active Spironolactone 25 MG 1 tablet Orally; Duration: 30 day(s) Active HumaLOG 100 UNIT/ML Injection; Duration: 100 Not-Taking Fluticasone Furoate Active Lantus 100 UNIT/ML Subcutaneous; Durati on: 75 Not-Taking Omeprazole 20 MG Oral; Duration: 90 Active Bethanechol Chloride 50 MG Oral; Duration: 90 Active Walker as directed 05/26/2024 Active Ammonium Lactate 12 % 1 application Externally Twice a day; Duration: 30 days Active Immunizations Vaccine Route Administration Date Status Comme nts Influenza Unknown 12/29/2022 Administered Influenza Unknown 12/30/2023 Administered Influenza Unknown 12/29/2024 Administered Social History Tobacco Use: Social History [...] Polyneuropathy due to type 2 diabetes mellitus (456353974) Type 2 diabetes mellitus with diabetic polyneuropathy (E11.42) Active confirmed Problem Unsteady gait (29102356) Unsteady gait (R26.81) Active confirmed Problem Traumatic amputation of toe OR toes without complication (03790528) Amputation of toe of left foot (S98.132A) Active confirmed Vital Signs Blood pressure diastolic 60 mm Hg 03/05/2025 Height 5 ft 10 in in 03/05/2025 Blood pressure systolic 127 mm Hg 03/05/2025 Weight 239 lbs 03/05/2025 BMI 34.29 kg/m2 03/05/2025 Procedures Procedure Date Ordered Date Performed Result Body Sit e 12827-XYZKPJB NAIL, 6 OR MORE 05/26/2024 N/A 36112-VIDE SKIN LESIONS, 2 TO 4 05/26/2024 N/A 76754-PQRRGBS NAIL, 6 OR MORE 08/25/2024 N/A 98157-HXDV SKIN LESIONS, 2 TO 4 08/25/2024 N/A 91818-NYGZKBD NAIL, 6 OR MORE 11/27/2024 N/A 18121-CEDR SKIN LESIONS, 2 TO 4 11/27/2024 N/A 30445-UYKVNHH NAIL, 6 OR MORE 03/05/2025 N/A 51601-OQGC SKIN LESIONS, 2 TO 4 03/05/2025 N/A Encounters Encounter Location Date Provider Diagnosis [address] [address] 05/26/2024 Ami Black Type 2 diabetes mellitus with diabetic polyneuropathy E11.42 ; Unsteady gait R26.81 ; Tinea unguium B35.1 ; Amputation of toe of left foot S98.132A ; Hx of falling Z91.81 and Muscle weakness M62.[address] [address] 08/25/2024 Ami Black Type 2 diabetes mellitus with diabetic polyneuropathy E11.42 ; Unsteady gait R26.81 ; Tinea unguium B35.1 ; Amputation of toe of left foot S98.132A ; Hx of falling Z91.81 and Muscle weakness M62.[address] [address] 11/27/2024 Ami Black Type 2 diabetes mellitus with diabetic polyneuropathy E11.42 ; Unsteady gait R26.81 ; Tinea unguium B35.1 ; Amputation of toe of left foot S98.132A ; Hx of falling Z91.81 and Muscle weakness M62.[address] [phone] 03/05/2025 Ami Black Type 2 diabetes mellitus with diabetic polyneuropathy E11.42 ; Tinea unguium B35.1 and Amputation of toe of left foot S98.132A Assessments Encounter Date Diagnosis (ICD Code) Assessment Notes Treatment Notes Treatment Clinical Notes Section Notes 03/05/2025 Type 2 diabetes mellitus with diabetic polyneuropathy (ICD-10 - E11.42) 03/05/2025 Tinea unguium (ICD-10 - B35.1) 05/26/2024 Type 2 diabetes mellitus with diabetic polyneuropathy (ICD-10 - E11.42) 05/26/2024 Unsteady gait (ICD-10 - R26.81) 11/27/2024 Type 2 diabetes mellitus with diabetic polyneuropathy (ICD-10 - E11.42) 11/27/2024 Unsteady gait (ICD-10 - R26.81) 08/25/2024 Type 2 diabetes mellitus with diabetic polyneuropathy (ICD-10 - E11.42) 08/25/2024 Unsteady gait (ICD-10 - R26.81) 08/25/2024 Tinea unguium (ICD-10 - B35.1) 11/27/2024 Tinea unguium (ICD-10 - B35.1) 05/26/2024 Tinea unguium (ICD-10 - B35.1) 03/05/2025 Amputation of toe of left foot (ICD-10 - S98.132A) 05/26/2024 Amputation of toe of left foot (ICD-10 - S98.132A) 11/27/2024 Amputation of toe of left foot (ICD-10 - S98.132A) 08/25/2024 Amputation of toe of left foot (ICD-10 - S98.132A) 08/25/2024 Hx of falling (ICD-10 - Z91.81) 11/27/2024 Hx of falling (ICD-10 - Z91.81) 05/26/2024 Hx of falling (ICD-10 - Z91.81) 05/26/2024 Muscle weakness (ICD-10 - M62.81) 11/27/2024 Muscle weakness (ICD-10 - M62.81) 08/25/2024 Muscle weakness (ICD-10 - M62.81) Plan Of Treatment Pending Test Test Name Order Date 11181-VIYOIOI NAIL, 6 OR MORE 02/14/2024 89374-UXCEGOO NAIL, 6 OR MORE 08/25/2024 17473-HNEFGGM NAIL, 6 OR MORE 03/05/2025 32233-AGAXDYM NAIL, 6 OR MORE 11/27/2024 49376-KAZRDJK NAIL, 6 OR MORE 05/26/2024 68546-XKSSHHN NAIL, 6 OR MORE 07/26/2023 93475-QOFEZKU NAIL, 6 OR MORE 11/12/2023 66073-THCA SKIN LESIONS, 2 TO 4 02/14/20 24 91694-KBYI SKIN LESIONS, 2 TO 4 11/12/19 24 66377-HDZT SKIN LESIONS, 2 TO 4 07/26/19 24 56295-TVHF SKIN LESIONS, 2 TO 4 05/26/19 25 11705-VYMV SKIN LESIONS, 2 TO 4 11/28/19 25 56906-RERV SKIN LESIONS, 2 TO 4 03/05/20 25 16203-EWKQ SKIN LESIONS, 2 TO 4 08/26/19 Next Appt Details Provider Name:Ami Almazan , 07/09/2025 02:45:00 PM, [address] [facility], [place], [address], Insurance Providers Payer Name Payer Address Payer Phone Subscriber Number Group Number Insured Name Patient Relationship to Insured Coverage Start Date Coverage End Date [employer] Medicare [id number] [address] [address] [place] [address] [id number] John Faulkner Self - patient is the [...]
--- OUTSIDE RECORDS SUMMARY | 2025-03-21 10:44 | XMS_ITS | Encounter Summary ---
Author Organization [facility] Address [address] [place] [id number] Care Team Providers Care World Designer Name Role Phone Elías Arce MD Primary Care Provider [phone] Reason for Visit * Reason Onset Date Comments orders 02/24/2025 Encounter Details Date Type Department Care Team (Late st Contact Info) Description 02/24/2025 Telephone Adult Medicine [address] [phone] Elías Arce MD [address] [place] [address] Social History Tobacco Use Types Packs/Day Years [...] as of this encounter Progress Notes * Alexa Herrera - 03/18/2025 3:53 PM EST Pt was seen on 03/03/25 and labs were ordered at the time of visit * Meg Dueñas - 02/25/2025 11:34 AM [...] 1:00 PM EST Office Visit Endocrinology - [address] [phone] Michela Kay PA [address] [place] [address] 08/19/2025 3:00 PM EDT Office Visit Nephrology - [address] [phone] Prabhjot Leroy MD [address] [place] [id number] 09/11/2025 1:00 PM EDT Office Visit Adult Medicine [facility] - [address] [phone] Elías Arce MD [address] [place] [address] documented as of this encounter Visit Diagnoses Not on filedocumented in this encounter Care Teams World Designer Relationship Specialty Start Date End Date Elías Arce MD [address] [place] [address] PCP - General 02/12/1997 documented as of this encounter
--- OUTSIDE RECORDS SUMMARY | 2025-03-21 10:44 | XMS_ITS | Clinical Summary ---
Author Organization [facility] Address [address] [place], [place] [id number] Phone Care Team Providers Care Retail Coverage Merchandiser Name Role Phone Elías Arce MD Primary [...] file Medical Devices Not on file Insurance [facility] [place] [address] MEDICARE REPLACEMENT MEDICARE REPLACEMENT MEDICARE REPLACEMENT [place] [id number] MEDICARE REPLACEMENT MEDICARE REPLACEMENT MEDICARE REPLACEMENT MEDICARE REPLACEMENT [place] [id number] [place] [address] [place] [address] Care Teams Retail Coverage Merchandiser Relationship Specialty Start Date End Date Elías Arce MD [address] [place] [id number] PCP - General Internal Medicine 03/30/21 Additional Source Comments The information contained in this document represents components of the legal health record. It is not the complete legal health record.[facility]
[2025-03-21 10:46] LABS: Hematocrit 34.9 % (42.0-52.0); Hemoglobin 11.4 g/dl (14.0-18.0); Imm Gran Abs Auto 0.15 X10*3/uL (0.00-0.03); Imm Gran Pct Auto 0.8 % (0.0-0.4); Lymphocytes Absolute Auto 0.7 X10*3/uL (1.2-4.9); Mean Corpuscular HGB Conc 32.7 g/dl (31.0-36.0); Mean Corpuscular Hemoglobin 31.3 pg (27.0-33.0); Mean Corpuscular Volume 95.9 fL (80.0-98.0); NRBC Abs Auto 0.000 X10*3/uL (0.0-0.012); NRBC Pct Auto 0.0 /100WBC (0.0-0.2); Platelet Count 224 X10*3/uL (160-400); Red Blood Count 3.64 X10*6/uL (4.60-5.80); White Blood Count 19.9 X10*3/uL (4.8-10.8)
[2025-03-21 11:05] LABS: Alanine Aminotransferase 21 U/L (0-40); Albumin Level 4.3 g/dL (3.5-5.0); Alkaline Phosphatase 135 U/L (39-117); Anion Gap 13 (12-20); Aspartate Amino Transferase 22 U/L (5-37); Blood Urea Nitrogen 31 mg/dL (9-16); Calcium 9.8 mg/dL (8.4-10.2); Carbon Dioxide 22 mmol/L (22-29); Chloride 110 mmol/L (96-108); Creatinine Clr Calc Pharmacy 43.8; Estimated Glomerular Filt Rate 41; Potassium 4.2 mmol/L (3.3-5.1); Sodium 141 mmol/L (135-145); Total Protein 7.0 g/dL (6.5-8.0)
[2025-03-21 11:12] LABS: Troponin-I High Sensitivity 12.7 ng/L (<3.5-35.0)
[2025-03-21 11:20] LABS: NT Pro B Type Natriuretic Pept 1563.3 pg/mL (<300)
[2025-03-21] MEDS: iohexoL 350 MG/ML 100 ML INFUS..BTL IV (11:27)
[2025-03-21 11:39] LABS: Resp Syncy Virus RNA Qual PCR NEGATIVE (Negative); SARS COV2 PCR INHOUSE NEGATIVE (Negative)
[2025-03-21 13:59] LABS: Appearance Urine Turbid; Glucose Urine UA Negative (Negative); PH 5.0 (5.0-9.0); Specific Gravity - Urine >= 1.030 (1.005-1.025); UMIC TRIGGER UACC YES
[2025-03-21 14:11] LABS: UACC Culture Trigger YES
--- NOTE | 2025-03-21 14:14 | PM.IMHP ---
History of Present Illness Date of Service: 03/21/25 Chief Complaint: weakness 80 year old man presenting with weakness, low back pain, right knee pain and fall. Patient had a fall one week ago while at an appointment and reports the soreness has gotten progressively worse. He was urinating more frequently. He denied fever, chills, nausea, vomiting, diarrhea, recent travel, sick contacts, abdominal pain, pain with urination. All imaging studies including knee x-ray, chest, head, cervical spine and abdominal CT and negative for acute abnormality. Patient reports he gets frequent urinary tract infections and follows up with Urology. In the ED, UA positive. He has leukocytosis and fever. He was given IV antibiotics in the ED. He will be admitted for management of Sepsis and UTI. Review of Systems Review of Systems: Denies any recent fever chills or decrease in appetite respiratory denies any shortness of breath or cough cardiovascular denied chest pain gastrointestinal denies any dysphagia abdominal pain nausea vomiting or diarrhea genitourinary denies any dysuria frequency or hematuria musculoskeletal denies any joint pain or swelling neuropsych denies any weakness or seizures all other systems reviewed are negative [facility] Medical History (Updated 03/21/25 @ 14:15 by Vijaya Heaton NP) Difficult Marques catheter placement H/O cataract Adenomatous colon polyp Johnson esophagus Blind right eye CAD (coronary artery disease) Iron deficiency anemia due to chronic blood loss Amputation of left great toe Hepatitis C Hyperlipidemia CVA (cerebral vascular accident) Chronic kidney disease, stage 3 Peripheral vascular disease HTN (hypertension) Diabetes Family History Other CAD (coronary artery disease) Surgical History S/P CABG x 2 Hx of cystoscopy Parotid mass (07/28/21) History of esophagogastroduodenoscopy (EGD) Hx of colonoscopy History of ankle surgery S/P carotid endarterectomy (~08/2018) S/P CABG (coronary artery bypass graft) (~2006) Social History Household Members: Spouse Housing: House Are you a primary wound care center consultant to a significant other at home: No Do you presently have visiting nurse or other home services: No Alcohol intake: never Comment: blind right eye Patient Tobacco Use Status: Former Tobacco user Tobacco use type: Cigarette Smoked in Last 30 Days: No e-Cigarette/Vaping Use: Never Used Use of substances other than those prescribed or required for medical reasons: No Substance Use Type: Marijuana Advance Directives: Yes Advance Directives on File: Yes Advance Directives Date on File: 04/14/21 service: No Current occupational status: retired Meds Allergies Allergy/AdvReac Type Severity Reaction Status Date / Time No Known Allergies (No Known Allergy Verified 03/21/25 10:14 Allergies*) Active Medications: Current Medications Acetaminophen (Acetaminophen 325 Mg Tablet) 650 mg PO Q6H PRN PRN Reason: Pain, Mild 1-3,fever,headache Calcium Carbonate (Calcium Carbonate 750 Mg Tab.Chew) 750 mg PO Q4H PRN PRN Reason: Heartburn Ceftriaxone Sodium 1 gm/ (Sodium Chloride) 50 mls @ 100 mls/hr IV Q24H KEIKO Magnesium Hydroxide (Milk Of Magnesia 30 Ml Oral.Susp) 30 ml PO DAILY PRN PRN Reason: Constipation Melatonin (Melatonin 3 Mg Tablet) 6 mg PO BEDTIME PRN PRN Reason: Insomnia Ondansetron HCl (Ondansetron Hcl 4 Mg/2 Ml Vial) 4 mg IVPUSH Q8H PRN PRN Reason: Nausea and Vomiting Sodium Chloride (0.9 % Sodium Chloride Flush 3 Ml Syringe) 3 [facility] Medications ?Medication ?Instructions ?Recorded ?Confirmed ?Last Taken ?Type atorvastatin 40 mg tablet 1 tab PO BEDTIME 04/22/20 01/20/25 08/04/21 History olmesartan 40 mg tablet 1 tab PO DAILY 04/22/20 01/20/25 08/04/21 History omeprazole 20 mg capsule,delayed 1 cap PO DAILY 05/24/20 01/20/25 10/10/21 History release insulin syringe-needle U-100 1 mL #10 ea 09/21/20 01/19/23 08/04/21 History 28 gauge x 1/2 metoprolol succinate 200 mg 0.5 tab PO DAILY 08/04/21 01/26/25 10/10/21 History tablet,extended release 24 hr acetaminophen 500 mg tablet 500 mg PO Q6H PRN pain 08/18/21 01/19/23 Unknown History aspirin 81 mg tablet,delayed 81 mg PO DAILY 06/11/1801/26/25 01/26/25 06:00 History release (Adult Low Dose Aspirin) timolol maleate 0.5 % eye drops 1 drp ophthalmic (eye) QAM 09/18/22 01/20/25 Unknown History bumetanide 1 mg tablet 1 mg PO DAILY 04/24/23 01/20/25 Unknown History nifedipine 60 mg tablet,extended 60 mg PO QDAY 04/24/23 01/26/25 01/26/25 06:00 History release cholecalciferol (vitamin D3) 25 25 mcg PO DAILY 04/27/23 01/20/25 Unknown History mcg (1,000 unit) capsule spironolactone 50 mg tablet 50 mg PO DAILY 04/27/23 01/20/25 Unknown History hydralazine 100 mg tablet 100 mg PO TID 03/18/24 01/20/25 Unknown History fluticasone propionate 50 1 spray intranasal DAILY 01/20/25 01/20/25 Unknown History mcg/actuation nasal spray,suspension insulin aspart U-100 100 unit/mL subcut TID 01/20/25 01/20/25 Unknown History subcutaneous solution (Novolog U-100 Insulin aspart) insulin degludec 200 unit/mL (3 40 unit subcut BID 01/20/25 01/20/25 Unknown History mL) subcutaneous pen (Tresiba FlexTouch U-200 insulin) omega-3 acid ethyl esters 1 gram 1 cap PO DAILY 03/17/25 Unknown History capsule Physical Exam Vital Signs and Narrative: Vital Signs: Last Vital Signs Temp 98.9 F 03/21/25 12:54 Pulse 65 03/21/25 12:54 Resp 18 03/21/25 12:54 BP 136/50 L 03/21/25 13:51 Pulse Ox 95 03/21/25 12:54 O2 Del Method Room Air 03/21/25 12:54 BMI result Body Mass Index 33.5 Appearing in no acute distress head is normocephalic atraumatic eyes pupils are PERRLA sclera is anicteric mouth throat mucous membranes are intact and moist neck is supple no lymphadenopathy, no JVD noted lung sounds are clear to auscultation heart regular rate rhythm, clear S1, S2 positive bowel sounds, abdomen is soft, nontender neuro patient is alert x3, no focal deficits Results Labs 03/21/25 10:30 03/21/25 10:30 Labs: Laboratory Results - last 24 hr 03/21/25 03/21/25 03/21/25 10:30 10:37 13:52 MCV 95.9 MCH 31.3 MCHC 32.7 RDW 13.4 Plt Count 224 MPV 9.4 Immature Gran % (Auto) 0.8 H Neut % (Auto) 87.9 H Lymph % (Auto) 3.3 L Door % (Auto) 7.5 Eos % (Auto) 0.1 Baso % (Auto) 0.4 Lymph # (Auto) 0.7 L Door # (Auto) 1.5 H Eos # (Auto) 0.0 Baso # (Auto) 0.1 Abs Immat Gran (auto) 0.15 H Absolute Neuts (auto) 17.5 H Absolute Nucleated RBC 0.000 Nucleated RBC % (auto) 0.0 Hold Purple Top SEE NOTE Anion Gap 13 Estim Creat Clear Calc 43.8 Estimated GFR 41 Random Glucose 169 H Lactic Acid 1.4 Calcium 9.8 Total Bilirubin 0.7 AST 22 ALT 21 Alkaline Phosphatase 135 H Troponin I High Sens 12.7 D NT-Pro-B Natriuret Pep 1563.3 H Total Protein 7.0 Albumin 4.3 Urine Color Yellow Urine Appearance Turbid Urine pH 5.0 Ur Specific [place] >= 1.030 H Urine Protein 100 (2+) H Urine Glucose (UA) Negative Urine Ketones Negative Urine Blood Negative Urine Nitrite Positive H Ur Leukocyte Esterase Moderate (2+) H Urine RBC 0-2 Urine WBC >50 H Urine WBC Clumps Present Ur Squamous Epith Cells 0-2 Urine Bacteria 1+ Hyaline Casts 0-2 Influenza Type A (PCR) NEGATIVE Influenza Type B (PCR) NEGATIVE RSV RNA Qual (PCR) NEGATIVE SARS-CoV-2 RNA (RT-PCR) NEGATIVE Assessment and Plan (1) HTN (hypertension): Status: Acute Plan 80 year old man admitted with sepsis secondary to UTI Sepsis secondary to UTI History of frequent urinary tract infections. Fever, Leukocytosis, normal lactic acid IV Rocephin Follow urine cx Fall and weakness PT consultation HTN Stable blood pressure Continue home antihypertensive medications BPH continue tamsulosin DM2 ss, ada diet CAD asa and statin hx of iron def anemia stable HH no need for intervention CKD 3 B baseline Glaucoma continue eye drops DVT prophylaxis with heparin Full code Quality Stroke Does the patient have a stroke diagnosis?: No VTE Prior VTE?: No VTE Risk Level:: Medical - moderate - high VTE Device Contraindication: Treatment Not Indicated VTE Drug Contraindication: N/A - Med Ordered
[2025-03-21 14:20] LABS: Glucose, Whole Blood 95 mg/dL (60-115)
--- NOTE | 2025-03-21 14:33 | PC.NURSE ---
Late entry. When patient stood to urinate he was SOB, slightly unsteady on feet. LS faint crackles in bases. follows commands well.
--- NOTE | 2025-03-21 14:34 | HO.NURTONUR ---
Pt arrived to ED 1 wee S/P fall. 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 Pt declined care then and now c/o right rib pain, right knee pain, lower back pain. Reporting increased frequency in urination lately. Axox3. WBC 19, Lactic 1.4. positive for UTI. BP was stable throughout. Slight elevation in BNP and given small bolus for this reason. Imaging negative.
[2025-03-21 16:01] LABS: Glucose, Whole Blood 148 mg/dL (60-115)
--- NOTE | 2025-03-21 17:50 | PHA.MEDREC ---
Addendum entered by Micheal Jackson PharmD 03/21/25 17:53: reviewed Original Note: Pharmacy Consult ? Medication Reconciliation Pharmacy has completed the medication reconciliation Confirmed medication list with patient and against claims history.
[2025-03-21 20:02] LABS: Glucose, Whole Blood 184 mg/dL (60-115)
[2025-03-21] MEDS: 0.9 % Sodium Chloride Flush 3 ML SYRINGE IVFLUSH ×2 (21:24→23:18)
[2025-03-22 03:30] VITALS: BP 151/68; PULSE 88; RESP 18; TEMP 36.5; O2SAT 92
[2025-03-22 06:26] LABS: Hematocrit 32.3 % (42.0-52.0); Hemoglobin 10.6 g/dl (14.0-18.0); Mean Corpuscular HGB Conc 32.8 g/dl (31.0-36.0); Mean Corpuscular Hemoglobin 31.4 pg (27.0-33.0); Mean Corpuscular Volume 95.6 fL (80.0-98.0); NRBC Abs Auto 0.000 X10*3/uL (0.0-0.012); NRBC Pct Auto 0.0 /100WBC (0.0-0.2); Platelet Count 212 X10*3/uL (160-400); Red Blood Count 3.38 X10*6/uL (4.60-5.80); White Blood Count 20.2 X10*3/uL (4.8-10.8)
[2025-03-22 06:46] VITALS: BP 152/72; PULSE 71; RESP 17; TEMP 36.6; O2SAT 94
[2025-03-22 06:48] LABS: Anion Gap 13 (12-20); Blood Urea Nitrogen 30 mg/dL (9-16); Calcium 9.2 mg/dL (8.4-10.2); Carbon Dioxide 22 mmol/L (22-29); Chloride 109 mmol/L (96-108); Creatinine Clr Calc Pharmacy 46.0; Estimated Glomerular Filt Rate 41; Potassium 4.1 mmol/L (3.3-5.1); Sodium 140 mmol/L (135-145)
[2025-03-22 07:04] LABS: Glucose, Whole Blood 146 mg/dL (60-115)
[2025-03-22 07:58] VITALS: BP 152/67; PULSE 79
[2025-03-22] MEDS: Metoprolol Succinate ER 100 MG TAB.ER.24H PO (08:06)
[2025-03-22] MEDS: Insulin Glargine,Hum.rec.anlog 100 UNIT/ML 10 ML VIAL 20 UNIT SUBCUT ×2 (08:06→21:14)
[2025-03-22] MEDS: timoloL maleate 0.5 % Oph Sol 5 ML DRBTL 1 DROP EYE-BOTH (08:06)
[2025-03-22] MEDS: NIFEdipine ER 60 MG TAB.ER.24 PO (08:07)
[2025-03-22] MEDS: Aspirin Enteric Coated 81 MG TABLET.DR PO (08:07)
--- NOTE | 2025-03-22 09:11 | HO.PM.IMPN ---
Subjective Subjective Date of Service: 03/22/25 Interval History: feeling better Physical Exam Exam: Exam: General: AO X 3, no acute distress Resp: CTA bilateral, no accessory muscles used CVS: S1,S2,RRR GI: soft, non tender, non distended Neuro: motor grossly intact, alert Vital Signs: Vital Signs: Last Vital Signs Temp 98 F 03/22/25 06:46 Pulse 79 03/22/25 07:58 Resp 17 03/22/25 06:46 BP 152/67 H 03/22/25 07:58 Pulse Ox 94 03/22/25 06:46 O2 Del Method Room Air 03/22/25 06:46 BMI result Body Mass Index 36.2 Objective Data Active Medications Acetaminophen (Acetaminophen 325 Mg Tablet) 650 mg PO Q6H PRN PRN Reason: Pain, Mild 1-3,fever,headache Aspirin (Aspirin Enteric Coated 81 Mg Tablet.Dr) 81 mg PO DAILY [facility] Last Admin: 03/22/25 08:07 Dose: 81 mg Documented By: DONTA Atorvastatin Calcium (Atorvastatin Calcium 40 Mg Tablet) 40 mg PO BEDTIME [facility] Last Admin: 03/21/25 23:15 Dose: 40 mg Documented By: KRYSTAL Comments: meds just ordered new admit Bethanechol Chloride (Bethanechol Chloride 25 Mg Tablet) 50 mg PO DAILY [facility] Last Admin: 03/22/25 08:07 Dose: 50 mg Documented By: DONTA Calcium Carbonate (Calcium Carbonate 750 Mg Tab.Chew) 750 mg PO Q4H PRN PRN Reason: Heartburn Dextrose (Dextrose 50 % 25 Gm/50 Ml Syringe) 25 gm IVPUSH Q15M PRN; Protocol PRN Reason: per Hypoglycemia Standing Ord. Fluticasone Propionate (Fluticasone Propionate Nasal 16 Gm [place]) 1 spray NOSTRIL-B DAILY [facility] Last Admin: 03/22/25 08:06 Dose: 1 spray Documented By: DONTA Glucose (Glucose Gel 15 Gm Gel..Gram.) 15 gm PO Q15M PRN; Protocol PRN Reason: per Hypoglycemia Standing Ord. Heparin Sodium (Porcine) (Heparin Sodium,Porcine 5,000 Unit/Ml Vial) 5,000 unit SUBCUT Q12H [facility] Last Admin: 03/22/25 04:37 Dose: 5,000 unit Documented By: KRYSTAL Comments: pt was a sleep Hydralazine HCl (Hydralazine Hcl 50 Mg Tablet) 100 mg PO TID [facility]; Protocol Last Admin: 03/22/25 08:06 Dose: 100 mg Documented By: DONTA Ceftriaxone Sodium 1 gm/ (Sodium Chloride) 50 mls @ 100 mls/hr IV Q24H [facility] Last Admin: 03/21/25 14:15 Dose: Not Given Documented By: ALEJANDRA Non-Admin Reason: Previously Administered Insulin Glargine (Insulin Glargine,Hum.Rec.Anlog 100 Unit/Ml 10 Ml Vial) 20 unit SUBCUT BID [facility] Last Admin: 03/22/25 08:06 Dose: 20 unit Documented By: DONTA Insulin Human Lispro (Insulin Lispro 100 Unit/Ml 3 Ml Vial) 0 unit SUBCUT QIDACHS [facility]; Protocol Last Admin: 03/22/25 07:37 Dose: Not Given Documented By: DONTA Non-Admin Reason: No Insulin Coverage Magnesium Hydroxide (Milk Of Magnesia 30 Ml Oral.Susp) 30 ml PO DAILY PRN PRN Reason: Constipation Melatonin (Melatonin 3 Mg Tablet) 6 mg PO BEDTIME PRN PRN Reason: Insomnia Metoprolol Succinate (Metoprolol Succinate Er 100 Mg Tab.Er.24h) 100 mg PO DAILY [facility]; Protocol Last Admin: 03/22/25 08:06 Dose: 100 mg Documented By: DONTA Nifedipine (Nifedipine Er 60 Mg Tab.Er.24) 60 mg PO DAILY [facility] Last Admin: 03/22/25 08:07 Dose: 60 mg Documented By: DONTA Omeprazole (Omeprazole 20 Mg Capsule.Dr) 20 mg PO DAILY@0630 [facility] Last Admin: 03/22/25 05:48 Dose: 20 mg Documented By: KRYSTAL Ondansetron HCl (Ondansetron Hcl 4 Mg/2 Ml Vial) 4 mg IVPUSH Q8H PRN PRN Reason: Nausea and Vomiting Sodium Chloride (0.9 % Sodium Chloride Flush 3 Ml Syringe) 3 ml IVFLUSH QSHIFT [facility] Last Admin: 03/21/25 23:18 Dose: 3 ml Documented By: KRYSTAL Spironolactone (Spironolactone 25 Mg Tablet) 50 mg PO DAILY [facility]; Protocol Last Admin: 03/22/25 08:07 Dose: 50 mg Documented By: DONTA Tamsulosin HCl (Tamsulosin Hcl 0.4 Mg Capsule) 0.4 mg PO BEDTIME [facility] Last Admin: 03/21/25 23:15 Dose: 0.4 mg Documented By: KRYSTAL Timolol Maleate (Timolol Maleate 0.5 % Oph Lizabeth 5 Ml Drbtl) 1 drop EYE-BOTH DAILY [facility] Last Admin: 03/22/25 08:06 Dose: 1 drop Documented By: DONTA Valsartan (Valsartan 160 Mg Tablet) 160 mg PO DAILY [facility]; Protocol Last Admin: 03/22/25 08:08 Dose: 160 mg Documented By: DONTA Vitamin D (Cholecalciferol (Vitamin D3) 25 Mcg Tablet) 25 mcg PO DAILY [facility] Last Admin: 03/22/25 08:07 Dose: 25 mcg Documented By: DONTA Labs 03/22/25 06:00 03/22/25 06:00 Labs: Laboratory Results - last 24 hr 03/21/25 03/21/25 03/21/25 10:30 10:37 13:52 MCV 95.9 MCH 31.3 MCHC 32.7 RDW 13.4 Plt Count 224 MPV 9.4 Immature Gran % (Auto) 0.8 H Neut % (Auto) 87.9 H Lymph % (Auto) 3.3 L [place] % (Auto) 7.5 Eos % (Auto) 0.1 Baso % (Auto) 0.4 Lymph # (Auto) 0.7 L [place] # (Auto) 1.5 H Eos # (Auto) 0.0 Baso # (Auto) 0.1 Abs Immat Gran (auto) 0.15 H Absolute Neuts (auto) 17.5 H Absolute Nucleated RBC 0.000 Nucleated RBC % (auto) 0.0 Hold Purple Top SEE NOTE Anion Gap 13 Estim Creat Clear Calc 43.8 Estimated GFR 41 POC Glucose Random Glucose 169 H Lactic Acid 1.4 Calcium 9.8 Total Bilirubin 0.7 AST 22 ALT 21 Alkaline Phosphatase 135 H Troponin I High Sens 12.7 D NT-Pro-B Natriuret Pep 1563.3 H Total Protein 7.0 Albumin 4.3 Urine Color Yellow Urine Appearance Turbid Urine pH 5.0 Ur Specific [place] >= 1.030 H Urine Protein 100 (2+) H Urine Glucose (UA) Negative Urine Ketones Negative Urine Blood Negative Urine Nitrite Positive H Ur Leukocyte Esterase Moderate (2+) H Urine RBC 0-2 Urine WBC >50 H Urine WBC Clumps Present Ur Squamous Epith Cells 0-2 Urine Bacteria 1+ Hyaline Casts 0-2 Influenza Type A (PCR) NEGATIVE Influenza Type B (PCR) NEGATIVE RSV RNA Qual (PCR) NEGATIVE SARS-CoV-2 RNA (RT-PCR) NEGATIVE 03/21/25 03/21/25 03/21/25 14:15 15:58 19:47 MCV MCH MCHC RDW Plt Count MPV Immature Gran % (Auto) Neut % (Auto) Lymph % (Auto) [place] % (Auto) Eos % (Auto) Baso % (Auto) Lymph # (Auto) [place] # (Auto) Eos # (Auto) Baso # (Auto) Abs Immat Gran (auto) Absolute Neuts (auto) Absolute Nucleated RBC Nucleated RBC % (auto) Hold Purple Top Anion Gap Estim Creat Clear Calc Estimated GFR POC Glucose 95 148 H 184 H Random Glucose Lactic Acid Calcium Total Bilirubin AST ALT Alkaline Phosphatase Troponin I High Sens NT-Pro-B Natriuret Pep Total Protein Albumin Urine Color Urine Appearance Urine pH Ur Specific [place] Urine Protein Urine Glucose (UA) Urine Ketones Urine Blood Urine Nitrite Ur Leukocyte Esterase Urine RBC Urine WBC Urine WBC Clumps Ur Squamous Epith Cells Urine Bacteria Hyaline Casts Influenza Type A (PCR) Influenza Type B (PCR) RSV RNA Qual (PCR) SARS-CoV-2 RNA (RT-PCR) 03/22/25 03/22/25 06:00 06:49 MCV 95.6 MCH 31.4 MCHC 32.8 RDW 13.3 Plt Count 212 MPV 9.5 Immature Gran % (Auto) Neut % (Auto) Lymph % (Auto) [place] % (Auto) Eos % (Auto) Baso % (Auto) Lymph # (Auto) [place] # (Auto) Eos # (Auto) Baso # (Auto) Abs Immat Gran (auto) Absolute Neuts (auto) Absolute Nucleated RBC 0.000 Nucleated RBC % (auto) 0.0 Hold Purple Top Anion Gap 13 Estim Creat Clear Calc 46.0 Estimated GFR 41 POC Glucose 146 H Random Glucose 148 H Lactic Acid Calcium 9.2 D Total Bilirubin AST ALT Alkaline Phosphatase Troponin I High Sens NT-Pro-B Natriuret Pep Total Protein Albumin Urine Color Urine Appearance Urine pH Ur Specific [place] Urine Protein Urine Glucose (UA) Urine Ketones Urine Blood Urine Nitrite Ur Leukocyte Esterase Urine RBC Urine WBC Urine WBC Clumps Ur Squamous Epith Cells Urine Bacteria Hyaline Casts Influenza Type A (PCR) Influenza Type B (PCR) RSV RNA Qual (PCR) SARS-CoV-2 RNA (RT-PCR) Assessment and Plan (1) CAD (coronary artery disease): Status: Acute Plan 80M PMH CAD post CABG, history of CVA, hepatitis-C, Johnson's esophagus, diabetes, hypertension, BPH, CKD 3B, recurrent UTI presented with weakness Sepsis due to recurrent urinary tract infection Continue ceftriaxone, follow up cultures Hypertension Nifedipine, Aldactone, hydralazine, metoprolol Diovan Diabetes Basal bolus insulin CAD Aspirin, statin History of CVA Aspirin, statin CKD 3B Stable DVT prophylaxis with heparin subQ Full code reason for continued hospitalization: Awaiting cultures Quality Stroke Does the patient have a stroke diagnosis?: No VTE Prior VTE?: No VTE Risk Level:: Medical - moderate - high VTE Device Contraindication: Treatment Not Indicated VTE Drug Contraindication: N/A - Med Ordered
[2025-03-22 11:08] LABS: Glucose, Whole Blood 238 mg/dL (60-115)
--- NOTE | 2025-03-22 11:26 | MHC.CM.PN ---
IMM DELIVERED. PT LIVES WITH SPOUSE, USES A WALKER/CANE FOR MOBILITY. +DRIVES. NO CURRENT SERVICES AND PT IS RELUCTANT TO AGREE TO SERVICES IF RECOMMENDED. + HCP ON FILE AND PCP DR. BHUPENDRA RHODES. DP: HOME VIS HOME WITH SERVICES. REFERRAL SENT TO [facility] HOWEVER PT IS NOT FULLY AGREEABLE TO HOME SERVICES, WILL CONSIDER IF RECOMMENDED. PT'S SPOUSE WILL TRANSPORT HOME. CM WILL CONTINUE TO FOLLOW FOR ANY CHANGE TO DC PLAN/NEEDS.
[2025-03-22 15:15] VITALS: BP 138/65; PULSE 68; RESP 18; TEMP 36.2; O2SAT 95
[2025-03-22] MEDS: 0.9 % Sodium Chloride Flush 3 ML SYRINGE IVFLUSH ×2 (15:31→21:15)
[2025-03-22 16:45] LABS: Glucose, Whole Blood 253 mg/dL (60-115)
[2025-03-22 20:00] VITALS: BP 143/65; PULSE 69; RESP 18; TEMP 36.3; O2SAT 95
[2025-03-22 20:30] LABS: Glucose, Whole Blood 225 mg/dL (60-115)
[2025-03-23 03:15] VITALS: BP 124/61; PULSE 73; RESP 18; TEMP 36.7; O2SAT 95
[2025-03-23 06:47] VITALS: BP 142/65; PULSE 68; RESP 17; TEMP 36.6; O2SAT 94
[2025-03-23 07:09] LABS: Anion Gap 13 (12-20); Blood Urea Nitrogen 41 mg/dL (9-16); Calcium 9.0 mg/dL (8.4-10.2); Carbon Dioxide 24 mmol/L (22-29); Chloride 108 mmol/L (96-108); Creatinine Clr Calc Pharmacy 38.4; Estimated Glomerular Filt Rate 33; Potassium 4.5 mmol/L (3.3-5.1); Sodium 140 mmol/L (135-145)
[2025-03-23 07:18] LABS: Glucose, Whole Blood 221 mg/dL (60-115)
[2025-03-23 07:38] LABS: Hematocrit 32.8 % (42.0-52.0); Hemoglobin 10.6 g/dl (14.0-18.0); Mean Corpuscular HGB Conc 32.3 g/dl (31.0-36.0); Mean Corpuscular Hemoglobin 30.9 pg (27.0-33.0); Mean Corpuscular Volume 95.6 fL (80.0-98.0); NRBC Abs Auto 0.000 X10*3/uL (0.0-0.012); NRBC Pct Auto 0.0 /100WBC (0.0-0.2); Platelet Count 238 X10*3/uL (160-400); Red Blood Count 3.43 X10*6/uL (4.60-5.80); White Blood Count 11.7 X10*3/uL (4.8-10.8)
[2025-03-23] MEDS: Insulin Glargine,Hum.rec.anlog 100 UNIT/ML 10 ML VIAL 20 UNIT SUBCUT (07:53)
[2025-03-23] MEDS: Metoprolol Succinate ER 100 MG TAB.ER.24H PO (07:57)
[2025-03-23] MEDS: NIFEdipine ER 60 MG TAB.ER.24 PO (07:57)
[2025-03-23] MEDS: 0.9 % Sodium Chloride Flush 3 ML SYRINGE IVFLUSH (07:58)
[2025-03-23] MEDS: Aspirin Enteric Coated 81 MG TABLET.DR PO (07:58)
[2025-03-23] MEDS: timoloL maleate 0.5 % Oph Sol 5 ML DRBTL 1 DROP EYE-BOTH (09:14)
[2025-03-23 11:28] LABS: Glucose, Whole Blood 246 mg/dL (60-115)
--- NOTE | 2025-03-23 11:47 | MHC.CM.PN ---
Addendum entered by Reina Wolff RN 03/23/25 14:31: Patient medically cleared for dc home self care. at bedside to transport. Original Note: Per MD rounds patient not medically cleared for dc. Per PT eval, no therapy indicated at this time. CM will continue to follow.
--- NOTE | 2025-03-23 14:18 | P.DS_ITS ---
DS: Providers Provider Date of Service: 03/23/25 Date of admission: 03/21/25 14:11 Date of discharge: 03/23/25 Primary care physician: Elías Arce III, MD DS: Diagnosis Discharge Diagnosis (1) CAD (coronary artery disease): Status: Acute DS: Summary Hospital Course Hospital Course: 80 year old man presenting with weakness, low back pain, right knee pain and fall. Patient had a fall one week ago while at an appointment and reports the soreness has gotten progressively worse. He was urinating more frequently. He denied fever, chills, nausea, vomiting, diarrhea, recent travel, sick contacts, abdominal pain, pain with urination. All imaging studies including knee x-ray, chest, head, cervical spine and abdominal CT and negative for acute abnormality. Patient reports he gets frequent urinary tract infections and follows up with Urology. In the ED, UA positive. He has leukocytosis and fever. He was given IV antibiotics in the ED. He will be admitted for management of Sepsis and UTI. Hospital course Patient admitted to general medical floor and started on ceftriaxone. Over the next 48 hours patient dramatically improved to the point where he was seen by Physical therapy and deemed appropriate for discharge to home without services. Follow up on the urine culture revealed less than 10,000 colonies however initial white count was [address] on day of discharge it was 12,000. Upon further review of the chart it appears antibiotic was given several hours before urine obtained with so we will complete the course with oral Ceftin at this time. He had a mild bump in his creatinine thought to be related to IV ceftriaxone. He has been encouraged to increase his fluid and follow up with the PCP next available for repeat labs. Time Attestation Discharge Coordination Time (in mins): 35 Quality: Safe Use of Opioids Does Pt have an Active Cancer Diagnosis on the Problem List?: No Quality: Stroke Does the patient have a stroke diagnosis?: No Physical Exam Vital Signs: Vital Signs: Last Vital Signs Temp 98 F 03/23/25 06:47 Pulse 68 03/23/25 06:47 Resp 17 03/23/25 06:47 BP 142/65 H 03/23/25 06:47 Pulse Ox 94 03/23/25 06:47 O2 Del Method Room Air 03/23/25 06:47 BMI result Body Mass Index 36.2 Const: Other: Awake alert no acute distress Resp: Other: Clear to auscultation bilaterally no rales rhonchi or wheezes Cardio: Other: No S4; positive S1-S2; no S3 murmurs rubs or gallops GI: Other: Soft nontender nondistended normoactive bowel sounds Extrem: Other: No edema bilaterally DS: Data Data Completed and Pending Completed studies during hospitalization [Text1]: Procedures Drainage of Bladder with Drainage Device, Via Natural or Artificial Opening (04/14/21) Inspection of Upper Intestinal Tract, Via Natural or Artificial Opening Endoscopic (08/04/21) Transfusion of Nonautologous Red Blood Cells into Peripheral Vein, Percutaneous Approach (08/04/21) Labs on day of discharge: Laboratory Results - last 24 hr 03/22/25 03/22/25 03/23/25 16:39 20:24 06:23 WBC 11.7 H RBC 3.43 L Hgb 10.6 L Hct 32.8 L MCV 95.6 MCH 30.9 MCHC 32.3 RDW 13.1 Plt Count 238 MPV 10.4 Absolute Nucleated RBC 0.000 Nucleated RBC % (auto) 0.0 Sodium Potassium Chloride Carbon Dioxide Anion Gap BUN Creatinine Estim Creat Clear Calc Estimated GFR POC Glucose 253 H 225 H Random Glucose Calcium 03/23/25 03/23/25 03/23/25 06:33 07:11 11:18 WBC RBC Hgb Hct MCV MCH MCHC RDW Plt Count MPV Absolute Nucleated RBC Nucleated RBC % (auto) Sodium 140 Potassium 4.5 Chloride 108 Carbon Dioxide 24 Anion Gap 13 BUN 41 H Creatinine 1.94 H Estim Creat Clear Calc 38.4 Estimated GFR 33 POC Glucose 221 H 246 H Random Glucose 220 H Calcium 9.0 Preliminary micro results at discharge 03/21/25 10:30 Blood Culture - Preliminary Blood - Venous No growth after 48 hours. 03/21/25 10:30 Blood Culture - Preliminary Blood - Venous No growth after 48 hours. Discharge Plan Discharge Anticipated Discharge Date/Time: 03/23/25 14:12 Patient Disposition: Home, Self-Care Discharge Diagnosis: Urinary tract infection Referrals: Elías Arce III, MD [Primary Care Provider, Medical] - 1 Week Discharge Medications: New cefuroxime axetil 250 mg tablet 250 mg PO BID 7 Days Qty: 14 0RF Continued tamsulosin 0.4 mg capsule 0.4 mg PO BEDTIME 90 Days Qty: 90 2RF atorvastatin 40 mg tablet 1 tab PO BEDTIME olmesartan 40 mg tablet 40 mg PO DAILY omeprazole 20 mg capsule,delayed release(DR/EC) 20 mg PO DAILY@0630 metoprolol succinate 200 mg tablet extended release 24 hr 100 mg PO DAILY aspirin [Adult Low Dose Aspirin] 81 mg tablet,delayed release (DR/EC) 81 mg PO DAILY fluticasone propionate 50 mcg/actuation spray,suspension 1 spray intranasal DAILY insulin degludec [Tresiba FlexTouch U-200] 200 unit/mL (3 mL) Insulin Pen 40 unit SUBCUT BID insulin aspart U-100 [Novolog U-100 Insulin aspart] 100 unit/mL solution 1 sliding scale dose subcut TID bethanechol chloride 50 mg tablet 50 mg PO DAILY Men's Multivitamin 200-60-600 mcg Tablet 1 tab PO DAILY (DME) insulin syringe-needle U-100 1 mL 28 gauge x 1/2 syringe See Rx Instructions .ROUTE .MEDSUPPLY Qty: 10 Rx Instructions: As directed acetaminophen 500 mg tablet 500 mg PO Q6H PRN (Reason: pain) timolol maleate 0.5 % drops 1 drp ophthalmic (eye) QAM spironolactone 50 mg tablet 50 mg PO DAILY cholecalciferol (vitamin D3) 25 mcg (1,000 unit) capsule 25 mcg PO DAILY hydralazine 100 mg tablet 100 mg PO TID nifedipine 60 mg tablet extended release 60 mg PO QDAY omega-3 acid ethyl esters 1 gram capsule 1 cap PO DAILY Discharge Orders: Discharge Order (Routine); Ordered 03/23/25 Ordered By: Rex Aguilar Diet: Advance to usual diet Activity on Discharge: As tolerated Stand Alone Forms: Patient Portal Discharge page Print Language: Amharic Care Plan Goals: Resume all meds as taken prior to hospitalization Health Concerns: Ceftin 250 mg twice daily for 7 days has been added to complete treatment for UTI Plan of Treatment: Follow up with your PCP next available Assessment: See discharge summary
== END 2025-03-23 14:30 | disposition home or self-care (01) | DRG 872 ==
LOC: HO.ED 14:12 → HO.EDOVER 14:16 → HO.S3 14:44
PROVIDERS: Internal Medicine; Physician Assistant Medical; Admitting Provider Nurse Practitioner Acute Care; Emergency Provider Emergency Medicine Emergency Medical Services; PCP Internal Medicine; Visit Provider Hospitalist
DX: A41.9 Sepsis, unspecified organism (principal); N39.0 Urinary tract infection, site not specified; I25.10 Atherosclerotic heart disease of native coronary artery without angina pectoris; N40.0 Benign prostatic hyperplasia without lower urinary tract symptoms; I12.9 Hypertensive chronic kidney disease with stage 1 through stage 4 chronic kidney disease, or unspecified chronic kidney disease; N18.32 Chronic kidney disease, stage 3b; Z20.822 Contact with and (suspected) exposure to COVID-19; Z95.1 Presence of aortocoronary bypass graft; Z87.440 Personal history of urinary (tract) infections; Z87.891 Personal history of nicotine dependence; Z79.4 Long term (current) use of insulin; Z79.82 Long term (current) use of aspirin; Z79.899 Other long term (current) drug therapy
CPT/HCPCS: 36415; 70450; 71260; 72125; 73562; 74177; 80048; 80053; 81001; 81003; 82947; 83605; 83880; 84484; 85025; 85027; 87040; 87086; 87637; 93005; 97161; 99221; 99285; J0131; J0696; J1644; Q9967

== ENCOUNTER → 2025-03-21 10:30 | Outpatient (BNV) | payer MEDICARE, SELFPAY | PROVIDERS: PCP Internal Medicine; Visit Provider Radiology Diagnostic Radiology | DX: R10.9 Unspecified abdominal pain (principal); R07.9 Chest pain, unspecified; R50.9 Fever, unspecified; M54.2 Cervicalgia; R51.9 Headache, unspecified; Z04.3 Encounter for examination and observation following other accident; S80.911A Unspecified superficial injury of right knee, initial encounter | CPT/HCPCS: 70450; 71260; 72125; 73562; 74177 ==

== ENCOUNTER → 2025-03-21 10:34 | Outpatient (BNV) | payer MEDICARE, SELFPAY | PROVIDERS: Admitting Provider Nurse Practitioner Acute Care; Emergency Provider Emergency Medicine Emergency Medical Services; PCP Internal Medicine; Visit Provider Internal Medicine | DX: I45.10 Unspecified right bundle-branch block (principal) | CPT/HCPCS: 93010 ==

== ENCOUNTER → 2025-03-21 14:11 | Outpatient (BNV) | payer MEDICARE, SELFPAY | PROVIDERS: Admitting Provider Nurse Practitioner Acute Care; Emergency Provider Emergency Medicine Emergency Medical Services; PCP Internal Medicine; Visit Provider Nurse Practitioner Acute Care | DX: I10 Essential (primary) hypertension (principal); I25.10 Atherosclerotic heart disease of native coronary artery without angina pectoris | CPT/HCPCS: 99223; 99233 ==

== ENCOUNTER 2025-04-06 08:43 | Outpatient (REF) | payer MEDICARE, SELFPAY ==
[2025-04-06 09:55] LABS: Blood Urea Nitrogen 27 mg/dL (9-16); Estimated Glomerular Filt Rate 48
[2025-04-06 10:14] LABS: Prostate Specific Antigen 3.15 ng/mL (<0.05-4.0)
== END 2025-04-06 08:44 | disposition home or self-care (01) ==
LOC: HO.LAB 08:43
PROVIDERS: Absent Provider Nurse Practitioner Family; PCP Internal Medicine; Visit Provider Surgery Vascular Surgery
DX: I65.23 Occlusion and stenosis of bilateral carotid arteries (principal); N40.0 Benign prostatic hyperplasia without lower urinary tract symptoms; Z12.5 Encounter for screening for malignant neoplasm of prostate
CPT/HCPCS: 36415; 82565; 84153; 84520

== ENCOUNTER 2025-04-15 13:28 | Outpatient (AMB) | payer MEDICARE, SELFPAY ==
--- NOTE | 2025-04-15 13:29 | MHC.OFFVIS ---
Intake Visit Reasons: 6M/PSA/PVR/UA Intake Note: Patient is present for 6M/PSA/UA/PVR PSA:3.15 Urology Medication:TAMSULOSIN,BETHANECHOLE CHLORIDE Antibiotic Allergy:NONE Blood Thinner:ASPIRIN Last PVR:127ML'S Todays PVR:12ML'S Nematologist Required: No Allergies No Known Allergies (No Known Allergies*) Allergy (Verified 04/15/25 13:58) Medication List - Last Reconciled 04/15/25 by LEOBARDO Pavon-JEREMIAH acetaminophen 500 mg PO Q6H PRN aspirin (Adult Low Dose Aspirin) 81 mg PO DAILY atorvastatin 1 tab PO BEDTIME bethanechol chloride 50 mg PO DAILY cefuroxime axetil 250 mg PO BID 7 days cholecalciferol (vitamin D3) 25 mcg PO DAILY fluticasone propionate 50 mcg/actuation 1 spray intranasal DAILY hydralazine 100 mg PO TID insulin aspart U-100 (Novolog U-100 Insulin aspart) 1 sliding scale dose subcut TID insulin degludec (Tresiba FlexTouch U-200 insulin) 40 units subcut BID insulin syringe-needle U-100 As directed metoprolol succinate ER 100 mg PO DAILY [id number]-vit K-lycop 200-60-600 mcg (Men's Multivitamin) 1 tab PO DAILY nifedipine ER 60 mg PO QDAY olmesartan 40 mg PO DAILY omega-3 acid ethyl esters 1 cap PO DAILY omeprazole 20 mg PO DAILY@0630 spironolactone 50 mg PO DAILY tamsulosin 0.4 mg PO BEDTIME 90 days timolol maleate 0.5% 1 drp ophthalmic (eye) QAM HPI Comments Details: John is a pleasant 80-year-old male patient of Dr. Claude GOLDSTEIN who is accompanied by his at today's visit. He has a past medical history of anemia, cataracts, Johnson esophagus, coronary artery disease, amputation of left great toe, CVA, Hep C, hyperlipidemia, CVA, chronic kidney disease stage 3, PVD, hypertension, hypercholesteremia, and diabetes. Patient status post laser prostatectomy and SP tube placement with Dr. Up September of 2021. However, suprapubic tube has since been removed and the patient has been able to urinate independently. He presents to the office today for follow-up of his incomplete bladder emptying, recurrent urinary tract infections, and lower urinary tract symptoms. In discussion with the patient today he reports a proximally 1 month ago he seeked emergency room care services for low-back pain, right knee pain, and weakness he had been experiencing. He reports he was found to have a urinary tract infection and has since completed antibiotic therapy. However, in review of patient's chart it appears urine culture 03/24 < 10,000 cfu/ml. He reports compliance with Flomax and bethanechol as prescribed. He denies having had any UTI like symptoms. He reports symptoms presented with weakness and was not experiencing any lower urinary tract symptoms and therefore did not call the office. He reports compliance with Flomax and bethanechol as prescribed. In office urinalysis results reviewed with the patient today. PVR 12 mL. It does appear a CT of the abdomen and pelvis was obtained 03/24 that noted no acute findings. He continues to follow-up with Dr. Leroy's his life sciences teacher. He currently denies any bothersome urinary issues or concerns. He denies urinary urgency, urinary frequency, incontinence, nocturia, hematuria, dysuria, foul smelling urine, changes to urinary stream, flank pain, fever, and or chills. Discussed at length potential causes and affects of incomplete bladder emptying. He otherwise offers no issues or concerns. PSAs are as follows: PSAs: 04/21 1.7, 10/21 1.6, 10/22 2.6, 04/23 3.2 Urine culture: 03/24 < 10,000 cfu/ml We did discussed slight increase in PSA. We discussed previous bladder ultrasound 08/19 noted 61 mL prostate however patient has since had surgical intervention with Dr. Up to include laser prostatectomy. We discussed potential causes of slight increase in PSA. Will continue with surveillance monitoring. All questions were answered. 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 CAD (coronary artery disease) Iron deficiency anemia due to chronic blood loss Amputation of left great toe Hepatitis C Hyperlipidemia CVA (cerebral vascular accident) Chronic kidney disease, stage 3 Peripheral vascular disease HTN (hypertension) Diabetes Surgical History S/P CABG x 2 Hx of cystoscopy Parotid mass (07/28/21) History of esophagogastroduodenoscopy (EGD) Hx of colonoscopy History of ankle surgery S/P carotid endarterectomy (~08/2018) S/P CABG (coronary artery bypass graft) (~2006) Family History Other CAD (coronary artery disease) Social History Household Members: Spouse Housing: House Are you a primary body care manager to a significant other at home: No Do you presently have visiting nurse or other home services: No Alcohol intake: never Comment: blind right eye Patient Tobacco Use Status: Former Tobacco user Tobacco use type: Cigarette e-Cigarette/Vaping Use: Never Used Substance Use Type: Marijuana Advance Directives Date on File: 04/14/21 service: No Current occupational status: retired Review of Systems Const Reports as per HPI Eyes Reports as per HPI Card Reports as per HPI GI Reports as per HPI Reports as per HPI Neuro Reports as per HPI Psych Reports no additional complaints Endo Reports as per HPI Physical Exam Const General: cooperative, healthy appearing, comfortable, no acute distress, well developed, alert and awake Orientation/consciousness: patient oriented x3 Limitations: ambulation with walker HEENT Head: Yes normal to inspection, Yes normocephalic and Yes atraumatic Ears: hearing grossly normal bilaterally Eyes General: appearance normal, both eyes and all related structures Neck Neck: Yes normal visual inspection and Yes trachea midline Chest Chest palpation & inspection: normal inspection of the chest Resp Effort & Inspection: normal respiratory effort and able to speak in complete sentences Cardio Rate: regular rate GI Inspection: Yes normal to inspection General: Yes no CVA tenderness Back/Spine/Pelvis Back: no CVA tenderness Skin General skin exam: no rashes or lesions noted Neuro General: patient oriented x3 Extrem General: Yes normal to inspection Psych Appearance: grossly normal and well kempt Mental Status: mental status grossly normal Speech and movement: Normal speech and movement present and Clear speech present Affect: normal affect Attitude: cooperative Thought process: Normal thought process present Thought content: Normal thought content present Insight: Fair insight present (Psych) Judgement: Fair judgement present (Psych) Office Procedures Post Void Residual Post Residual Void Post Void Residual (PVR): 88126-[id number] Void Residual by ultrasound Results Reviewed Results Reviewed: Date of Service: 03/21/25 Procedure(s): CT abdomen pelvis w IV con Findings: The lung bases are clear. There is a right renal cyst. The gallbladder and the rest of the solid organs are unremarkable. There are chronic perinephric inflammatory changes. No bowel obstruction, pneumoperitoneum, or pneumatosis. Pelvic contents unremarkable. Normal appendix. The bones are intact. IMPRESSION: No acute findings. Assessment & Plan Assessment & Plan (1) Urinary retention with incomplete bladder emptying: Code(s): R33.9 - Retention of urine, unspecified Category: Medical (2) BPH w urinary obs/LUTS: Code(s): N40.1 - Benign prostatic hyperplasia with lower urinary tract symptoms; N13.8 - Other obstructive and reflux uropathy Category: Medical (3) Acute UTI: Code(s): N39.0 - Urinary tract infection, site not specified Category: Medical Plan In office urinalysis results reviewed with the patient today; as noted above. PVR [address] results reviewed with the patient today; as noted above. All questions were answered. He currently denies any bothersome urinary issues or concerns. We did discuss potential causes of slight increase in PSA as well as urinary tract infections. Continue Flomax and bethanechol as prescribed. Will continue with surveillance monitoring. Will obtain PSA in 6 months. Follow-up in 6 months with PSA and PVR; or sooner with any issues, concerns, and or questions. Orders: Orders AMB Urinalysis Automated Today Z13.9 - Encounter for screening, unspecified Prostate Specific Antigen 6 Months N13.8 - Other obstructive and reflux uropathy, N40.1 - Benign prostatic hyperplasia with lower urinary tract symptoms Medications: Discontinued cefuroxime axetil Discontinued Reason: Patient Completed Course 250 mg PO BID 7 days 14 tabs 0RF Patient Instructions: The patient had an opportunity to ask questions regarding the treatment plan. All questions were answered. Physical exam, labs, and imaging were discussed and reviewed in detail. As well as risks, benefits, and discussion of treatment choices. No major barriers to understanding were identified. The patient expressed understanding and agreement with the above treatment plan. The patient was made aware they should contact our office by phone for worsening of their current condition, the appearance of new symptoms, or with any questions or concerns. Compliance is encouraged with any medications and follow up testing that is ordered. It is a privilege to be allowed the opportunity to participate in? your urological care.? Again, if you have any questions or concerns If you have any questions or concerns please do not hesitate to contact me. The office is [phone]. This note is constructed using voice recognition software. While every effort has been made to ensure accuracy loadmaster errors may have been included. Yours sincerely, FAROOQ Pavon Coding Level of Care Code Est Pt Level 3 (03664) Add On Problem Visit Only Diagnoses Urinary retention with incomplete bladder emptying R33.9 BPH w urinary obs/LUTS N40.1; N13.8 Acute UTI N39.0 CPT Codes Post Residual Void - PVR CPT Code: 90172-Grmu Void Residual by ultrasound ([id number])
--- OUTSIDE RECORDS SUMMARY | 2025-04-15 17:39 | XMS_ITS | Clinical Summary ---
Author Organization [facility] [address] [place] [address] [place] [phone] Phone Care Team Providers Care Document Imaging Manager Name Role Phone Elías Arce MD Primary Care Provider [phone] Allergies No known active allergies Medications insulin syringes, disposable, 1 mL syringe USE 5 SYRINGES FOR INJECTIONS UNDER THE SKIN DAILY 4 Active tamsulosin (FLOMAX) 0.4 mg 24 hr capsule Take 1 Capsule by mouth daily. Take 30 mins after same meal every day. Active cholecalciferol (VITAMIN D-3) 25 mcg (1,000 unit) tablet Take 1 tablet (1,000 Units total) by mouth 1 (one) time each day. Active blood-glucose meter,continuous (Dexcom G7 Payroll Processor) misc by Does not apply route. Active blood-glucose sensor (Dexcom G7 Sensor) device by Does not apply route. Active bethanechol (URECHOLINE) 50 mg tablet Take 1 tablet (50 mg total) by mouth 2 (two) times a day. Active omega-3 acid ethyl esters (LOVAZA) 1 gram capsule Take by mouth. 1 Active olmesartan (BENICAR) 40 mg tablet Take 1 tablet (40 mg total) by mouth 1 (one) time each day. 1 Active aspirin 81 mg EC tablet 1 TABLET DAILY 7 Active timolol (TIMOPTIC) 0.5 % ophthalmic solution - Route: apply 1 Drop to the eye daily. 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 75 mL 1 5 Active hydrALAZINE (APRESOLINE) 100 mg tablet Take 1 tablet (100 mg total) by mouth 3 (three) times a day. 270 tablet 2 5 Active pen needle, diabetic 31 gauge x 5/16 needleIndications: Type 2 diabetes mellitus with neurological manifestations (CMS/HCC V24, CMS/HCC V28) Use to inject 1-4 times daily as directed 100 each 11 5 Active pen needle, diabetic 31 gauge x 5/16 needleIndications: Type 2 diabetes mellitus with neurological manifestations (CMS/HCC V24, CMS/HCC V28) Use to inject 1-4 times daily as directed 400 each 3 5 Active pen needle, diabetic (BD Ultra-Fine Short Pen Needle) 31 gauge x 5/16 needle Use to inject 1-4 times daily as directed 400 each 5 Active glucose blood test stripIndications:T ype 2 diabetes mellitus with neurological manifestations (CMS/HCC V24, CMS/HCC V28) Use as instructed up to 3 times a day 100 each 12 5 026 Active spironolactone (ALDACTONE) 50 mg tablet Take 1 tablet (50 mg total) by mouth 1 (one) time each day. 90 tablet 1 5 Active bumetanide (BUMEX) 1 mg tablet TAKE 1 TABLET BY MOUTH EVERY DAY 90 tablet 3 5 Active insulin aspart (NovoLOG U-100 Insulin aspart) 100 unit/mL injectionIndicatio ns:Type 2 diabetes mellitus with neurological manifestations (CMS/HCC V24, CMS/HCC V28) Three times a day before meals, Max Up to 50 units a day; 3 months supply please 45 mL 5 Active metoprolol succinate (Toprol XL) 100 mg 24 hr tabletIndications: 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 Take 1 tablet (100 mg total) by mouth 1 (one) time each day. Do not crush or chew. 90 each 1 5 026 Active atorvastatin (LIPITOR) 40 mg tablet Take 1 tablet (40 mg total) by mouth 1 (one) time each day. at bedtime. 90 tablet 1 Active NIFEdipine CC (ADALAT CC) 60 mg 24 hr tablet Take 1 tablet (60 mg total) by mouth 1 (one) time each day before breakfast. Do not crush, chew, or split. 90 tablet 1 5 027 Active omeprazole (PriLOSEC) [address] capsule Take 1 capsule (20 mg total) by mouth 1 (one) time each day. 90 each 1 5 026 Active fluticasone propionate (FLONASE) 50 mcg/actuation nasal spray Administer 2 sprays into each nostril 2 (two) times a day. 16 g 1 5 Active Active Problems Problem Noted Date Diagnosed Date Chronic heart failure with preserved ejection fr action 05/16/2024 Assessment & Plan (03/02/2025 2:45 PM EST): Patient appears euvolemic on exam. Currently utilizing spironolactone 50 mg p.o. daily which was initiated by his nursing clerk. Assessment & Plan (01/14/2025 4:55 PM EDT): Continue metoprolol 100mg daily,nifedipine 60 mg daily, Hydralazine 100 mg tid, olmesatan 40mg , aldactone 50mg, bumex 1mg daily Assessment & Plan (05/16/2024 2:00 PM EST): Patient presented to the emergency room fluid overloaded and experiencing some dyspnea on exertion. He was diuresed with furosemide and then started back on his regular medication regiment. Has a nursing clerk that he reports she has not been [...] mellitus), type 2 with peripheral vascular complications 02/08/2024 DNR (do not resuscitate) 02/04/2022 Overview [...] current medication regimen. 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 Dowd at [facility] -Status post peripheral angiography on 05/05/2018 [...] monitor on current dose of Toprol-XL A-fib 03/30/2011 Overview (03/02/2025): -Post CABG- 2006, then resolved. Assessment & Plan (03/02/2025 2:44 PM EST): - Transiently anticoagulated for a period of time after CABG but no recurrence since then so anticoagulation has been discontinued CKD (chronic kidney disease) stage 3, GFR 30-59 ml/min 03/30/2011 Assessment & Plan (01/14/2025 4:55 PM EDT): Continue nephrology follow-up. Microalbuminuria 03/30/2011 Type 2 diabetes mellitus with renal manifestatio ns 11/14/2010 Overview (02/08/2024): Amputation left first toe. Right carotid artery occlusion, left carotid artery stenosis. Assessment & Plan (01/14/2025 4:55 PM EDT): Continue insulin tresiba 40mg BID and novolog TID with meals. Continue endocrinology follow up Orders: Hemoglobin A1c; Future Status post amputation of great toe, left 2008 Overview (02/08/2024): 08/19/2008 Left first toe CAD [...] Diagnosed Date Resolved Date CHF (congestive heart failure) 05/15/2024 01/14/2025 CAD (coronary artery disease) 08/05/2006 [...] Care Team Description 03/16/2025 Results Follow-Up Adult Medicine [address] [phone] Elías Arce MD 03/03/2025 1:25 PM EST Lab Draw [address] Type 2 diabetes mellitus with stage 3b chronic kidney disease, with long-term current use of insulin ([facility] V24, CMS/HCC V28); Essential hypertension, benign; Encounter for long-term (current) use of medications; Pure hypercholesterolemia; Stage 3a chronic kidney disease (CMS/HCC V24, CMS/HCC V28) 03/03/2025 1:00 PM EST Office Visit Adult Medicine [address] [phone] Elías Arce MD Type 2 diabetes mellitus [...] 03/02/2025 1:10 PM EST Office Visit [facility] [address] [place] [phone] Devenrda Reddy NP Chronic heart failure with preserved ejection fraction (CMS/HCC V24, CMS/HCC V28) (Primary Dx); Atrial fibrillation, unspecified type (CMS/HCC V24, CMS/HCC V28); Essential hypertension, benign; 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 02/24/2025 Telephone Adult Medicine [address] [phone] Elías Arce MD 01/22/2025 Telephone Adult Medicine [address] [phone] Lindsay Grace MD 01/14/2025 10:00 AM EDT Consult Adult Medicine [address] [phone] Lindsay Grace MD Preop cardiovascular exam (Primary Dx); Type 2 diabetes mellitus with stage 3b chronic kidney disease, with long-term current use of insulin (CMS/HCC V24, CMS/HCC V28); 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; Chronic heart failure with preserved ejection fraction (CMS/HCC V24, CMS/HCC V28); Essential hypertension, benign; 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; Stage 3a chronic kidney disease (CMS/HCC V24, CMS/HCC V28); Mixed hyperlipidemia from Last 3 Months [...] stenosis left internal carotid artery 50-69%. A-fib ([facility] V24, [facility] V28) 03/30/2011 DX:A-fib ([facility]); COMMENT: Post CABG- 2006, then resolved. Bilateral carotid artery stenosis 03/18/2018 DX:Bilateral carotid artery stenosis Bradycardia 03/11/2018 DX:Bradycardia CKD (chronic kidney disease) stage 3, GFR 30-59 ml/min ([facility] V24, [facility] V28) 03/30/2011 DX:CKD (chronic kidney disea se) stage 3, GFR 30-59 ml/min ([facility]) Diabetic neuropathy ([facility] V24, [facility] V28) 11/14/2010 DX:Diabetic neuropathy ([facility]) ; COMMENT: Bilateral feet. 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 Right carotid artery occlusion, left carotid artery stenosis. PVD (peripheral vascular dis ease) ([facility] V24) 03/30/2011 DX:PVD (peripheral vascular disease) ([facility]) Family History Medical History Relation Name Comments [...] on file Sexual Orientation Not on file Last Filed Vital Signs Vital Sign Reading [...] 05/12/2025 1:00 PM EST Office Visit Endocrinology [address] [phone] Michela Kay PA [address] [place], [place] 08/19/2025 3:00 PM EDT Office Visit Nephrology [address] [phone] Prabhjot Leroy MD [address] [phone] 09/11/2025 1:00 PM EDT Office Visit Adult Medicine South [address] [phone] Elías Arce MD [address] [place], [place] Health Maintenance Due Date Last Done Comments [...] disease, with long-term current use of insulin ([facility] V24, [facility] V28) COMPREHENSIVE METABOLIC PANEL Routine 03/03/2025 1:26 PM EST Essential hypertension, benign Encounter for long-term (current) use of medications MICROALBUMIN CREATININE URINE RATIO Routine 03/03/2025 1:26 PM EST Type 2 diabetes mellitus with stage 3b chronic kidney disease, with long-term current use of insulin ([facility] V24, [facility] V28) ECG 12-LEAD Routine 03/02/2025 1:10 PM EST Chronic heart failure with preserved ejection fraction ([facility] V24, [facility] V28) HEMOGLOBIN A1C Routine 01/14/2025 10:42 AM EDT Type 2 diabetes mellitus with stage 3b chronic kidney disease, with long-term current use of insulin ([facility] V24, [facility] V28) HM DIABETES EYE EXAM Routine 10/17/2023 DIABETES FOOT EXAM Routine 07/26/2023 from Last 3 Months or Most Recently Relevant to Health Maintenance Results * (ABNORMAL) Lipid panel with reflex to direct LDL (03/03/2025 1:26 PM EST) Cholesterol 132 0 - 200 mg/dL LAB CHEMISTRY METHOD 03/03/2025 6:28 PM EST [facility] Triglycerides 283(H) 0 - [...] 03/03/2025 6:28 PM [facility] Chol/HDL Ratio 4.7(H) 0.0 - 4.4 LAB CHEMISTRY METHOD 03/03/2025 6:28 PM [facility] Blood Venous blood specimen / Unknown Venipuncture / Unknown 03/03/2025 1:26 PM EST 03/03/2025 1:26 PM EST us Elías Arce MD LAB BLOOD ORDERABLES Final Resu lt [facility] [address] [place] [address], [place] [phone] * (ABNORMAL) Microalbumin creatinine urine ratio (03/03/2025 1:26 PM EST) Creatinine, Urine 61.0 mg/dL LAB CHEMISTRY METHOD 03/03/2025 9:04 PM [facility] Microalb, Ur 156.0(H) 0.0 - 29.0 mg/L LAB CHEMISTRY METHOD 03/03/2025 9:04 PM [facility] Microalb/Crea t Ratio 256(H) <30 mg/g creat LAB CHEMISTRY METHOD 03/03/2025 9:04 PM [facility] Urine Urine specimen obtained by clean catch procedure / Unknown Non-blood Collection / Unknown 03/03/2025 1:26 PM EST 03/03/2025 1:26 PM EST us Elías Arce MD LAB URINE ORDERABLES Final Resu lt [facility] [address] [place] [address], * (ABNORMAL) Comprehensive metabolic panel (03/03/2025 1:26 PM EST) [facility] Sodium 140 133 - 145 mmol/L LAB [...] MD LAB BLOOD ORDERABLES Final Resu lt [facility] [address] [place] [address], * (ABNORMAL) Hemoglobin A1c (01/14/2025 10:42 AM EDT) [facility] Hemoglobin A1C 7.5(H) <6.5 % LAB CHEMISTRY METHOD 01/14/2025 1:47 PM EDT [facility] Mean Bld Glu Estim. 169 mg/dL LAB CHEMISTRY METHOD 01/14/2025 1:47 PM EDT [facility] Blood Venous blood specimen / Unknown Venipuncture / Unknown 01/14/2025 10:42 AM EDT 01/14/2025 10:42 AM EDT Lindsay Graec MD LAB BLOOD ORDERA BLES Final Result Performing Organization Address City/[facility]/ZIP Co de Phone Number [facility] [address] [place] [address], * Diabetes Eye Exam (10/17/2023) [facility] Diabetes: Annual Retina Eye Exam ABSTRACTED Historical Provider HEALTH MAINTENANCE Final Result * Diabetes Foot Exam (07/26/2023) [facility] Diabetes: Annual Foot Exam ABSTRACTED Historical Provider HEALTH MAINTENANCE Final Result from Last 3 Months or Most Recently Relevant to Health Maintenance Insurance [employer] MEDICARE Care Teams Document Imaging Manager Relationship Specialty Start Date End Date Elías Arce MD [address] [place] [address] PCP - General 02/12/1997
--- OUTSIDE RECORDS SUMMARY | 2025-04-15 17:39 | XMS_ITS | Encounter Summary ---
Author Organization [facility] Address [address] [place] [phone] Care Team Providers Care Bobtailer Name Role Phone Elías Arce MD Primary Care Provider [phone] Reason for Visit * Reason Onset Date Comments Chest Pain 03/11/2024 Encounter Details Date Type Department Care Team (Late st Contact Info) Description 03/11/2024 Nurse Triage Adult Medicine [address] [phone] Elías Arce MD [address] [place] [address] Social History Tobacco Use Types Packs/Day Years [...] traveled recently to another state outside of [place], [place], [place], [place], [place], [place], [place]? no o If yes, did you quarantine [...] of accident/Injury: No If yes, gather 3rd republican insurance information Third Libertarian Information: not applicable PCP: Elías Arce MD Payor: / No coverage found. documented in this encounter Plan of Treatment Upcoming Encounters Date Type Department Care Team (Late st Contact Info) Description 05/12/2025 1:00 PM EST Office Visit Endocrinology - [place] [address] [place] [address] Michela Kay PA [address] [place] [address] 08/19/2025 3:00 PM EDT Office Visit Nephrology - [address] [phone] Prabhjot Leroy MD [address] [place] [address] 09/11/2025 1:00 PM EDT Office Visit Adult Medicine [place] - [address] [phone] Elías Arce MD [address] [place] [address] documented as of this encounter Visit Diagnoses Not on filedocumented in this encounter Care Teams Bobtailer Relationship Specialty Start Date End Date Elías Arce MD [address] [place] [address] PCP - General 02/12/1997 documented as of this encounter
--- OUTSIDE RECORDS SUMMARY | 2025-04-15 17:39 | XMS_ITS | Clinical Summary ---
Author Organization [facility] Address [address] [place], [place] [id number] Phone Care Team Providers Care Public Relations Sales Marketing Name Role Phone Elías Arce MD Primary [...] file Medical Devices Not on file Insurance [facility] MEDICARE REPLACEMENT MEDICARE REPLACEMENT MEDICARE REPLACEMENT MEDICARE REPLACEMENT [place] [id number] MEDICARE REPLACEMENT MEDICARE REPLACEMENT MEDICARE REPLACEMENT MEDICARE REPLACEMENT [place] [id number] [facility] MEDICARE REPLACEMENT Care Teams Public Relations Sales Marketing Relationship Specialty Start Date End Date Elías Arce MD [address] [place] [phone] PCP - General Internal Medicine 03/30/21 Additional Source Comments The information contained in this document represents components of the legal health record. It is not the complete legal health record.[facility]
--- OUTSIDE RECORDS SUMMARY | 2025-04-15 17:39 | XMS_ITS | Patient Health Record ---
Author Organization [facility] Address [address] [facility] [place] [address] Care Team Providers Care Documentation Writer Name Role Phone Claude OLEA, Dileep Primary Care Provider UnavailAmi Collazo Unavailable [phone] Allergies No Known Allergies Results Component Value Reference Range Notes HEMOGLOBIN A1C (GLYCOHEMOGLO BIN) Reviewed date:08/25/2024 02:08:12 PM Interpretation: Performing Lab: Notes/Report: HEMOGLOBIN A1C % (HH) 5.5 HEMOGLOBIN A1C (GLYCOHEMOGLO BIN) Reviewed date:03/05/2025 02:21:19 PM Interpretation: Performing Lab: Notes/Report: HEMOGLOBIN A1C % (HH) 7.5 Reason For Referral No Information Medications Medication [...] day; Duration: 30 day(s) Active Dexcom G7 [facility] [employer] - as directed Active Tresiba 100 UNIT/ML [...] Polyneuropathy due to type 2 diabetes mellitus (500309494) Type 2 diabetes mellitus with diabetic polyneuropathy (E11.42) Active confirmed Problem Unsteady gait (84441302) Unsteady gait (R26.81) Active confirmed Problem Traumatic amputation of toe OR toes without complication (66445011) Amputation of toe of left foot (S98.132A) Active confirmed Vital Signs Blood pressure diastolic 60 mm Hg 03/05/2025 Height 5 ft 10 in in 03/05/2025 Blood pressure systolic 127 mm Hg 03/05/2025 Weight 239 lbs 03/05/2025 BMI 34.29 kg/m2 03/05/2025 Procedures Procedure Date Ordered Date Performed Result Body Sit e 60525-UUFICAR NAIL, 6 OR MORE 05/26/2024 N/A 53371-HHBR SKIN LESIONS, 2 TO 4 05/26/2024 N/A 18975-KAMTFRO NAIL, 6 OR MORE 08/25/2024 N/A 47611-LMNI SKIN LESIONS, 2 TO 4 08/25/2024 N/A 88835-DPYESTU NAIL, 6 OR MORE 11/27/2024 N/A 32306-FVHM SKIN LESIONS, 2 TO 4 11/27/2024 N/A 05786-SMQYEHO NAIL, 6 OR MORE 03/05/2025 N/A 31493-ITIA SKIN LESIONS, 2 TO 4 03/05/2025 N/A Encounters Encounter Location Date Provider Diagnosis [address] [address] 05/26/2024 Ami Black Type 2 diabetes mellitus with diabetic polyneuropathy E11.42 ; Unsteady gait R26.81 ; Tinea unguium B35.1 ; Amputation of toe of left foot S98.132A ; Hx of falling Z91.81 and Muscle weakness M62.[address] [address] 08/25/2024 Amihima Almazan Type 2 diabetes mellitus with diabetic polyneuropathy E11.42 ; Unsteady gait R26.81 ; Tinea unguium B35.1 ; Amputation of toe of left foot S98.132A ; Hx of falling Z91.81 and Muscle weakness M62.[address] [address] 11/27/2024 Amihima Almazan Type 2 diabetes mellitus with diabetic polyneuropathy E11.42 ; Unsteady gait R26.81 ; Tinea unguium B35.1 ; Amputation of toe of left foot S98.132A ; Hx of falling Z91.81 and Muscle weakness M62.[address] [address] 03/05/2025 Ami Black Type 2 diabetes mellitus with diabetic polyneuropathy E11.42 ; Tinea unguium B35.1 and Amputation of toe of left foot S98.132A Assessments Encounter Date Diagnosis (ICD Code) Assessment Notes Treatment Notes Treatment Clinical Notes Section Notes 05/26/2024 Type 2 diabetes mellitus with diabetic polyneuropathy (ICD-10 - E11.42) 05/26/2024 Unsteady gait (ICD-10 - R26.81) 08/25/2024 Type 2 diabetes mellitus with diabetic polyneuropathy (ICD-10 - E11.42) 08/25/2024 Unsteady gait (ICD-10 - R26.81) 11/27/2024 Type 2 diabetes mellitus with diabetic polyneuropathy (ICD-10 - E11.42) 11/27/2024 Unsteady gait (ICD-10 - R26.81) 03/05/2025 Type 2 diabetes mellitus with diabetic polyneuropathy (ICD-10 - E11.42) 03/05/2025 Tinea unguium (ICD-10 - B35.1) 03/05/2025 Amputation of toe of left foot (ICD-10 - S98.132A) 11/27/2024 Tinea unguium (ICD-10 - B35.1) 08/25/2024 Tinea unguium (ICD-10 - B35.1) 05/26/2024 Tinea unguium (ICD-10 - B35.1) 05/26/2024 Amputation of toe of left foot [...] Treatment Pending Test Test Name Order Date 38074-CEBDYMP NAIL, 6 OR MORE 07/26/2023 31763-BFWTXUR NAIL, 6 OR MORE 11/12/2023 41085-INKLOBT NAIL, 6 OR MORE 02/14/2024 04372-DGHXARB NAIL, 6 OR MORE 05/26/2024 20752-GJPMKXU NAIL, 6 OR MORE 08/25/2024 46698-EVCHOAY NAIL, 6 OR MORE 11/27/2024 99556-DHVUNOD NAIL, 6 OR MORE 03/05/2025 41232-DHFF SKIN LESIONS, 2 TO 4 07/26/19 24 89563-WNCJ SKIN LESIONS, 2 TO 4 03/05/20 34016-QFAS SKIN LESIONS, 2 TO 4 11/28/19 89663-ICZP SKIN LESIONS, 2 TO 4 08/26/19 90036-EZBN SKIN LESIONS, 2 TO 4 05/26/19 25 09119-JRHN SKIN LESIONS, 2 TO 4 02/14/20 24 50135-STSZ SKIN LESIONS, 2 TO 4 11/12/19 Next Appt Details Provider Name:Ami Almazan , 07/09/2025 02:45:00 PM, [address] [facility], [place], [address], Insurance Providers Payer Name Payer Address Payer Phone Subscriber Number Group Number Insured Name Patient Relationship to Insured Coverage Start Date Coverage End Date [employer] Medicare [id number] [address] [address] [place] [address] [phone] [id number] John Faulkner Self - patient is the [...]
== END 2025-04-15 14:02 | disposition home or self-care (01) ==
LOC: HO.HUSH 13:28
PROVIDERS: PCP Internal Medicine; Visit Provider Nurse Practitioner Family
DX: R33.9 Retention of urine, unspecified (principal); N40.1 Benign prostatic hyperplasia with lower urinary tract symptoms; N13.8 Other obstructive and reflux uropathy; N39.0 Urinary tract infection, site not specified
CPT/HCPCS: 99213; G2211

== ENCOUNTER → 2025-04-15 13:28 | Outpatient (BNVA) | payer MEDICARE, SELFPAY | PROVIDERS: PCP Internal Medicine; Visit Provider Nurse Practitioner Family | DX: R33.9 Retention of urine, unspecified (principal); N40.1 Benign prostatic hyperplasia with lower urinary tract symptoms; N13.8 Other obstructive and reflux uropathy; N39.0 Urinary tract infection, site not specified; Z13.9 Encounter for screening, unspecified | CPT/HCPCS: 51798; 99212 ==